=== PATIENT | female | born 1935 | race Caucasian/White ===

== ENCOUNTER 2019-06-25 14:45 | Inpatient (IN) | payer MEDICARE ==
[~2019-06-25] VITALS: Ht 157.5 cm; Wt 63.6 kg
[~2019-06-25 14:45] MED LIST: ACHD5005 PO; ALBU17AE3 IH; D50KC PO; DCS100C PO; DESO15OI TP; FERR-57 PO; FLD5TCR PO; FNT100TD TD; FURO40TA4 PO; HYDR25TA4 PO; LVT.1T PO; MPR22TI TP; MULT1TAB53 PO; NFGUAR168P PO; PEG250PW PO; POTA10TA21 PO; PRAV40TA PO; PRAV80TA2 PO; RANI150C11 PO; SENN-75 PO
--- NOTE | 2019-06-25 14:56 | ED Abdominal Pain ---
General Stated Complaint: N/V/D Source of Information: Patient Exam Limitations: No Limitations History of Present Illness Date Seen by Provider: Jun 25, 2019 Time Seen by Provider: 14:54 Initial Comments To ER per EMS from home with reports of a 5 day history of nausea vomiting diarrhea abdominal pain and pain all over. Primary care Dr. Thomas. She has a prescription for hydrocodone 10/325 one tablet every 4 hours and a fentanyl patch 75 g per hour. She states that she's been too nauseated to take the hydrocodone. Timing/Duration: 1-2 Days Severity/Quality: Moderate Location: Periumbilical Radiation: No Radiation Activities at Onset: None Associated Symptoms: Nausea/Vomiting Allergies and Home Medications Allergies Coded Allergies: Penicillins (Unverified Allergy, Unknown, 06/25/19) Sulfa (Sulfonamide Antibiotics) (Verified Allergy, Unknown, 06/25/19) gabapentin (Verified Allergy, Unknown, 06/25/19) hydrochlorothiazide (Verified Allergy, Unknown, 06/25/19) lisinopril (Verified Allergy, Unknown, 06/25/19) losartan (Verified Allergy, Unknown, 06/25/19) pregabalin (Verified Allergy, Unknown, 06/25/19) sulfamethoxazole (Verified Allergy, Unknown, 06/25/19) trimethoprim (Verified Allergy, Unknown, 06/25/19) Home Medications Docusate Sodium 100 Mg Cap, 100 MG PO BID, (Reported) Ergocalciferol 50,000 Unit Capsule, 50,000 UNIT PO WEDNESDAYS, (Reported) Felodipine 5 Mg Tab, 10 MG PO DAILY, (Reported) TAKES 2 (5MG) TABS DAILY Fentanyl 1 Ea Patch, 100 MCG TD Q72H PRN for PAIN, (Reported) PRN PAIN Hydrochlorothiazide 25 Mg Tablet, 25 MG PO DAILY, (Reported) Hydrocodone Bit/Acetaminophen 1 Each Tablet, 1 TAB PO Q6 PRN, (Reported) PRN PAIN Levothyroxine Sodium 100 Mcg Tablet, 100 MCG PO DAILY, (Reported) Potassium Chloride 10 Meq Tab.prt.sr, 10 MEQ PO DAILY, (Reported) Pravastatin Sodium 40 Mg Tablet, 40 MG PO HS, (Reported) Ranitidine Hcl 150 Mg Capsule, 150 MG PO BID, (Reported) Sennosides/Docusate Sodium 1 Each Tablet, 2 EACH PO BID, (Reported) Patient Home Medication List Home Medication List Reviewed: Yes Review of Systems Review of Systems Constitutional: see HPI EENTM: No Symptoms Reported Respiratory: No Symptoms Reported Cardiovascular: No Symptoms Reported Gastrointestinal: See HPI, Abdominal Pain, Diarrhea, Nausea Genitourinary: No Symptoms Reported Musculoskeletal: no symptoms reported Skin: no symptoms reported Psychiatric/Neurological: No Symptoms Reported Past Sxqiqfx-Lkadbg-Uptjxu Hx Immunizations Up To Date Date of Pneumonia Vaccine: Sep 17, 2011 Date of Influenza Vaccine: Aug 17, 2013 Past Medical History Reproductive Disorders: Yes Physical Exam Vital Signs Vital Signs - First Documented 06/25/19 14:45 Temp 36.4 Pulse 100 Resp 19 B/P (MAP) 163/99 (120) Pulse Ox 95 O2 Delivery Room Air Capillary Refill : Height/Weight/BMI Height: 5'3.00" Weight: 153lbs. oz. 69.763178ye; BMI Method: General Appearance: WD/WN, no apparent distress Respiratory: no respiratory distress Cardiovascular: regular rate, rhythm, no murmur Gastrointestinal: soft, abnormal bowel sounds, tenderness (hypoactive) Extremities: normal range of motion, non-tender Neurologic/Psychiatric: alert, normal mood/affect, oriented x 3 Skin: normal color, warm/dry Focused Exam Lactate Level 06/25/19 12:25: Lactic Acid Level 1.34 Lactic Acid Level Laboratory Tests Test 06/25/19 12:25 Lactic Acid Level 1.34 MMOL/L (0.50-2.00) Progress/Results/Core Measures Results/Orders Lab Results Laboratory Tests Test 06/25/19 12:25 06/25/19 15:25 06/25/19 16:50 Range/Units White Blood Count 6.8 4.3-11.0 10^3/uL Red Blood Count 4.78 4.35-5.85 10^6/uL Hemoglobin 14.4 11.5-16.0 G/DL Hematocrit 40 35-52 % Mean Corpuscular Volume 84 80-99 FL Mean Corpuscular Hemoglobin 30 25-34 PG Mean Corpuscular Hemoglobin Concent 36 32-36 G/DL Red Cell Distribution Width 13.7 10.0-14.5 % Platelet Count 396 130-400 10^3/uL Mean Platelet Volume 9.3 7.4-10.4 FL Neutrophils (%) (Auto) 66 42-75 % Lymphocytes (%) (Auto) 17 12-44 % Monocytes (%) (Auto) 16 H 0-12 % Eosinophils (%) (Auto) 0 0-10 % Basophils (%) (Auto) 0 0-10 % Neutrophils # (Auto) 4.5 1.8-7.8 X 10^3 Lymphocytes # (Auto) 1.2 1.0-4.0 X 10^3 Monocytes # (Auto) 1.1 H 0.0-1.0 X 10^3 Eosinophils # (Auto) 0.0 0.0-0.3 10^3/uL Basophils # (Auto) 0.0 0.0-0.1 10^3/uL Lactic Acid Level 1.34 0.50-2.00 MMOL/L Sodium Level 133 L 135-145 MMOL/L Potassium Level 3.1 L 3.6-5.0 MMOL/L Chloride Level 89 L 98-107 MMOL/L Carbon Dioxide Level 27 21-32 MMOL/L Anion Gap 17 H 5-14 MMOL/L Blood Urea Nitrogen 37 H 7-18 MG/DL Creatinine 0.80 0.60-1.30 MG/DL Estimat Glomerular Filtration Rate > 60 BUN/Creatinine Ratio 46 Glucose Level 121 H 70-105 MG/DL Calcium Level 10.4 H 8.5-10.1 MG/DL Corrected Calcium 10.3 H 8.5-10.1 MG/DL Total Bilirubin 0.6 0.1-1.0 MG/DL Aspartate Amino Transf (AST/SGOT) 13 5-34 U/L Alanine Aminotransferase (ALT/SGPT) 9 0-55 U/L Alkaline Phosphatase 63 40-136 U/L Troponin I 0.028 <0.028 NG/ML Total Protein 7.2 6.4-8.2 GM/DL Albumin 4.1 3.2-4.5 GM/DL Lipase 15 8-78 U/L Urine Color MILY H Urine Clarity CLEAR Urine pH 5 5-9 Urine Specific [place] 1.015 L 1.016-1.022 Urine Protein 2+ H NEGATIVE Urine Glucose (UA) NEGATIVE NEGATIVE Urine Ketones 3+ H NEGATIVE Urine Nitrite NEGATIVE NEGATIVE Urine Bilirubin 1+ H NEGATIVE Urine Urobilinogen NORMAL NORMAL MG/DL Urine Leukocyte Esterase 1+ H NEGATIVE Urine RBC (Auto) NEGATIVE NEGATIVE Urine RBC NONE /HPF Urine WBC NONE /HPF Urine Squamous Epithelial Cells NONE /HPF Urine Crystals NONE /LPF Urine Bacteria TRACE /HPF Urine Casts NONE /LPF Urine White Blood Cell Casts RARE H /LPF Urine Mucus SMALL H /LPF Urine Culture Indicated NO Urine Opiates Screen POSITIVE H NEGATIVE Urine Oxycodone Screen POSITIVE H NEGATIVE Urine Methadone Screen NEGATIVE NEGATIVE Urine Propoxyphene Screen NEGATIVE NEGATIVE Urine Barbiturates Screen NEGATIVE NEGATIVE Ur Tricyclic Antidepressants Screen NEGATIVE NEGATIVE Urine Phencyclidine Screen NEGATIVE NEGATIVE Urine Amphetamines Screen NEGATIVE NEGATIVE Urine Methamphetamines Screen NEGATIVE NEGATIVE Urine Benzodiazepines Screen POSITIVE H NEGATIVE Urine Cocaine Screen NEGATIVE NEGATIVE Urine Cannabinoids Screen NEGATIVE NEGATIVE My Orders Orders - PRITI ALVAREZ APRN Cbc With Automated Diff (06/25/19 14:52) Comprehensive Metabolic Panel (06/25/19 14:52) Lipase (06/25/19 14:52) Ua Culture If Indicated (06/25/19 14:52) Ed Iv/Invasive Line Start (06/25/19 14:52) Lactic Acid Analyzer (06/25/19 14:52) Ondansetron Injection (Zofran Injectio (06/25/19 15:00) Troponin I (06/25/19 14:52) Ketorolac Injection (Toradol Injection) (06/25/19 15:30) Drug Screen Stat (Urine) (06/25/19 15:41) Ct Abdomen/Pelvis W (06/25/19 16:06) Iohexol Injection (Omnipaque 350 Mg/Ml 1 (06/25/19 16:15) Received Contrast (Hold Metformin- Contr (06/25/19 16:15) Ns (Ivpb) (Sodium Chloride 0.9% Ivpb Bag (06/25/19 16:15) Fentanyl Injection (Sublimaze Injection (06/25/19 16:30) Promethazine Injection (Phenergan Injec (06/25/19 16:45) Chest 1 View, Ap/Pa Only (06/25/19 16:42) Ng Tube Insert & Assessment (06/25/19 16:42) Benzocaine Extension Tube (Hurricaine Ex (06/25/19 16:51) Magnesium (06/25/19 17:19) Metoprolol Tartrate Injection (Lopressor (06/25/19 17:30) Benzocaine Extension Tube (Hurricaine Ex (06/25/19 17:30) Medications Given in ED Current Medications Medications Dose Ordered Sig/Bob Route Start Time Stop Time Status Last Admin Dose Admin Benzocaine 1 ea ONCE ONCE XX 06/25/19 17:30 06/25/19 17:31 06/25/19 17:00 1 EA Fentanyl Citrate 50 mcg ONCE ONCE IVP 06/25/19 16:30 06/25/19 16:31 DC 06/25/19 16:48 50 MCG Iohexol 80 ml ONCE ONCE IV 06/25/19 16:15 06/25/19 16:16 DC 06/25/19 16:44 80 ML Ketorolac Tromethamine 15 mg ONCE ONCE IVP 06/25/19 15:30 06/25/19 15:31 DC 06/25/19 15:38 15 MG Ondansetron HCl 8 mg ONCE ONCE IVP 06/25/19 15:00 06/25/19 15:01 DC 06/25/19 15:11 8 MG Promethazine HCl 6.25 mg ONCE ONCE IVP 06/25/19 16:45 06/25/19 16:46 DC 06/25/19 16:48 6.25 MG Sodium Chloride 100 ml ONCE ONCE IV 06/25/19 16:15 06/25/19 16:16 DC 06/25/19 16:44 80 ML Vital Signs/I&O 06/25/19 14:45 Temp 36.4 Pulse 100 Resp 19 B/P (MAP) 163/99 (120) Pulse Ox 95 O2 Delivery Room Air Departure Communication (Admissions) Time/Spoke to Admitting Phy: 17:29 Discussed the case with Dr. Rocha, will admit, nasogastric tube 16 Slovenian inserted left nostril by me, 1 L greenish material aspirated. Time/Spoke to Consulting Phy: 17:24 Discussed CODE STATUS with the patient. Daughter is at the bedside, daughter states she should be a full code, patient wants to be DO NOT RESUSCITATE but after conversing with the daughter, convinced to remain full CODE STATUS. Patient also states "at 86 years old on not having an operation". Advised her she can discuss the plan with Dr. Marcum . Dr. Marcum will be over to evaluate the patient, I discussed the case with him as well. NAME: LILIYA TATUM MED REC#: [id number] PT STATUS: REG ER : 1935 PHYSICIAN: PRITI ALVAREZ APRN ADMIT DATE: 06/25/19/ER Draft Date of Exam:06/25/19 CT ABDOMEN/PELVIS W PROCEDURE: CT abdomen and pelvis with contrast. TECHNIQUE: Multiple contiguous axial images were obtained through the abdomen and pelvis after administration of intravenous contrast. Auto Exposure Controls were utilized during the CT exam to meet ALARA standards for radiation dose reduction. INDICATION: Pain and nausea. FINDINGS: There are features of a high-grade small bowel obstruction, believed to be secondary to an incarcerated right inguinal hernia medial to the neurovascular bundle. The loop proximal to the hernia sac is dilated and distally is decompressed with an abrupt zone of transition. The proximal small bowel behind the herniation is dilated with differential air-fluid levels. Small bowel diameter is upwards of 4.1 cm. No free air or findings of viscus perforation. Dilatation extends to the level of the stomach which is moderately distended with fluid. The liver, spleen, adrenals, pancreas, and gallbladder are all unremarkable. The kidneys are unobstructed. There is air at the rectal vault. 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 The proximal colon is decompressed. There are aortoiliac atherosclerotic vascular calcifications without arterial obstruction. IMPRESSION: High-grade small bowel obstruction owing to likely incarcerated right inguinal hernia. No evidence for perforation. No abscess or fluid collection. Dictated on workstation # [id number] Dict: 06/25/19 1646 Trans: 06/25/19 [id number] [id number] Interpreted by: MARGIE ARGUELLO Electronically signed by: Impression Primary Impression: Incarcerated right inguinal hernia Additional Impression: Small bowel obstruction Disposition: ADMITTED INPATIENT Condition: Stable Admissions Decision to Admit Reason: Admit from ER (General) Decision to Admit/Date: Jun 25, 2019 Time/Decision to Admit Time: 17:05 PRITI ALVAREZ APRN Jun 25, 2019 14:56
[2019-06-25] MEDS ORDERED: ONDANSETRON 4 MG/2 ML (SDV) Z0FRAN IVP ONE (15:00)
[2019-06-25] MEDS ORDERED: KETOROLAC 30 MG/ML VIAL IVP ONE (15:30)
[2019-06-25 15:35] LABS: BASOPHILS % (AUTO) 0 % (0-10); EOSINOPHILS % (AUTO) 0 % (0-10); HEMATOCRIT 40 % (35-52); HEMOGLOBIN 14.4 G/DL (11.5-16.0); LYMPHOCYTES # (AUTO) 1.2 X 10^3 (1.0-4.0); LYMPHOCYTES % (AUTO) 17 % (12-44); MEAN CORPUSCULAR HEMOGLOBIN 30 PG (25-34); MEAN CORPUSCULAR HGB CONC 36 G/DL (32-36); MEAN CORPUSCULAR VOLUME 84 FL (80-99); MEAN PLATELET VOLUME 9.3 FL (7.4-10.4); MONOCYTES # (AUTO) 1.1 X 10^3 (0.0-1.0); MONOCYTES % (AUTO) 16 % (0-12); NEUTROPHILS # (AUTO) 4.5 X 10^3 (1.8-7.8); NEUTROPHILS % (AUTO) 66 % (42-75); PLATELET COUNT 396 10^3/uL (130-400); RED CELL DISTRIBUTION WIDTH 13.7 % (10.0-14.5); WHITE BLOOD COUNT 6.8 10^3/uL (4.3-11.0)
[2019-06-25 16:04] LABS: ALANINE AMINOTRANSFERASE 9 U/L (0-55); ALBUMIN 4.1 GM/DL (3.2-4.5); ALKALINE PHOSPHATASE 63 U/L (40-136); BILIRUBIN,TOTAL 0.6 MG/DL (0.1-1.0); BUN/CREATININE RATIO 46; CALCIUM 10.4 MG/DL (8.5-10.1); CARBON DIOXIDE 27 MMOL/L (21-32); CHLORIDE 89 MMOL/L (98-107); GFR ESTIMATED > 60; GLUCOSE 121 MG/DL (70-105); LIPASE 15 U/L (8-78); POTASSIUM 3.1 MMOL/L (3.6-5.0); SODIUM 133 MMOL/L (135-145); TOTAL PROTEIN 7.2 GM/DL (6.4-8.2)
[2019-06-25] MEDS ORDERED: IOHEXOL 350 MG/ML 100 ML (OMNIPAQUE 350) VIAL IV ONE (16:15)
[2019-06-25] MEDS ORDERED: HOLD METFORMIN - RECEIVED CONTRAST 20 ML VIAL IV SCH (16:15)
[2019-06-25] MEDS ORDERED: NS 100 ML (IVPB) BAG IV ONE (16:15)
[2019-06-25] MEDS ORDERED: fentaNYL INJECTION 100 MCG/2 ML AMP IVP ONE ×2 (16:30→20:45)
[2019-06-25] MEDS ORDERED: PROMETHAZINE INJ 25 MG/ML (PHENERGAN) AMP IVP ONE (16:45)
[2019-06-25] MEDS ORDERED: HURRICAINE EXT TUBE (BENZOCAINE) ONE (16:51)
--- NOTE | 2019-06-25 16:58 | Diagnostic Imaging Report ---
PROCEDURE: CT abdomen and pelvis with contrast. TECHNIQUE: Multiple contiguous axial images were obtained through the abdomen and pelvis after administration of intravenous contrast. Auto Exposure Controls were utilized during the CT exam to meet ALARA standards for radiation dose reduction. INDICATION: Pain and nausea. FINDINGS: There are features of a high-grade small bowel obstruction, believed to be secondary to an incarcerated right inguinal hernia medial to the neurovascular bundle. The loop proximal to the hernia sac is dilated and distally is decompressed with an abrupt zone of transition. The proximal small bowel behind the herniation is dilated with differential air-fluid levels. Small bowel diameter is upwards of 4.1 cm. No free air or findings of viscus perforation. Dilatation extends to the level of the stomach which is moderately distended with fluid. The liver, spleen, adrenals, pancreas, and gallbladder are all unremarkable. The kidneys are unobstructed. There is air at the rectal vault. 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 The proximal colon is decompressed. There are aortoiliac atherosclerotic vascular calcifications without arterial obstruction. IMPRESSION: High-grade small bowel obstruction owing to likely incarcerated right inguinal hernia. No evidence for perforation. No abscess or fluid collection. Dictated by: Dictated on workstation # [id number]
[2019-06-25 17:06] LABS: BILIRUBIN,URINE 1+ (NEGATIVE); CLARITY,URINE CLEAR; COLOR,URINE AMBER; GLUCOSE, URINE (UA) NEGATIVE (NEGATIVE); KETONES,URINE 3+ (NEGATIVE); LEUKOCYTE ESTERASE ,URINE 1+ (NEGATIVE); NITRITE,URINE NEGATIVE (NEGATIVE); PH,URINE 5 (5-9); PROTEIN,URINE 2+ (NEGATIVE); UROBILINOGEN,URINE NORMAL (NORMAL)
--- NOTE | 2019-06-25 17:10 | NUR ---
NS bolus initiated by cc ems detective captain, complete. 1L intake.
--- NOTE | 2019-06-25 17:18 | NUR ---
1L dark, green output noted from 16fr NG tube.
[2019-06-25 17:22] LABS: BACTERIA,URINE TRACE /HPF
[2019-06-25 17:23] LABS: WHITE BLOOD CELL CASTS, URINE RARE /LPF
[2019-06-25 17:26] LABS: AMPHETAMINE SCREEN, URINE NEGATIVE (NEGATIVE); BARBITURATE SCREEN URINE NEGATIVE (NEGATIVE); BENZODIAZEPINES SCREEN URINE POSITIVE (NEGATIVE); CANNABINOID SCREEN, URINE NEGATIVE (NEGATIVE); COCAINE SCREEN URINE NEGATIVE (NEGATIVE); METHADONE STAT NEGATIVE (NEGATIVE); METHAMPHETAMINE SCREEN URINE S NEGATIVE (NEGATIVE); OPIATE SCREEN URINE POSITIVE (NEGATIVE); OXYCODONE STAT POSITIVE (NEGATIVE); PROPOXYPHENE STAT NEGATIVE (NEGATIVE); TRICYCLIC ANTIDEPRESSANTS SCRE NEGATIVE (NEGATIVE)
[2019-06-25] MEDS ORDERED: meTOprolol 5 MG/5 ML (LOPRESSOR) VIAL IV ONE (17:30)
[2019-06-25] MEDS ORDERED: HURRICAINE EXT TUBE (BENZOCAINE) XX ONE (17:30)
--- NOTE | 2019-06-25 17:41 | NUR ---
Pt report called to ALEXY Gardner for admission to room #407.
--- NOTE | 2019-06-25 18:08 | Consultation - Surgery ---
History of Present Illness History of Present Illness Patient Consulted On(hiral/time) 06/25/19 18:03 Time Seen by Provider: 17:31 History of Present Illness Surgery asked to consult regarding High grade Small bowel Resection. HPI per ED: To ER per EMS from home with reports of a 5 day history of nausea vomiting diarrhea abdominal pain and pain all over. Primary care Dr. Thomas. She has a prescription for hydrocodone 10/325 one tablet every 4 hours and a fentanyl patch 75 g per hour. She states that she's been too nauseated to take the hydrocodone. Timing/Duration: 1-2 Days Severity/Quality: Moderate Location: Periumbilical Radiation: No Radiation Activities at Onset: None Associated Symptoms: Nausea/Vomiting When I spoke to pt she states the bad pain has been past few days, but daughter reminds her she has been having pain in that area for past few months. Daughter thinks it may have even been years; because she remembers her mom complaining about a bulge in the right inguinal area that was more painful when "it got bumped". She has not been able to eat since yesterday. She rates the pain as 8 out of 10, not moving is the only thing that makes it better. Allergies and Home Medications Allergies Coded Allergies: Penicillins (Unverified Allergy, Unknown, 06/25/19) Sulfa (Sulfonamide Antibiotics) (Verified Allergy, Unknown, 06/25/19) gabapentin (Verified Allergy, Unknown, 06/25/19) hydrochlorothiazide (Verified Allergy, Unknown, 06/25/19) lisinopril (Verified Allergy, Unknown, 06/25/19) losartan (Verified Allergy, Unknown, 06/25/19) pregabalin (Verified Allergy, Unknown, 06/25/19) sulfamethoxazole (Verified Allergy, Unknown, 06/25/19) trimethoprim (Verified Allergy, Unknown, 06/25/19) Home Medications Docusate Sodium 100 Mg Cap, 100 MG PO BID, (Reported) Ergocalciferol 50,000 Unit Capsule, 50,000 UNIT PO WEDNESDAYS, (Reported) Felodipine 5 Mg Tab, 10 MG PO DAILY, (Reported) TAKES 2 (5MG) TABS DAILY Fentanyl 1 Ea Patch, 100 MCG TD Q72H PRN for PAIN, (Reported) PRN PAIN Hydrochlorothiazide 25 Mg Tablet, 25 MG PO DAILY, (Reported) Hydrocodone Bit/Acetaminophen 1 Each Tablet, 1 TAB PO Q6 PRN, (Reported) PRN PAIN Levothyroxine Sodium 100 Mcg Tablet, 100 MCG PO DAILY, (Reported) Potassium Chloride 10 Meq Tab.prt.sr, 10 MEQ PO DAILY, (Reported) Pravastatin Sodium 40 Mg Tablet, 40 MG PO HS, (Reported) Ranitidine Hcl 150 Mg Capsule, 150 MG PO BID, (Reported) Sennosides/Docusate Sodium 1 Each Tablet, 2 EACH PO BID, (Reported) Patient Home Medication List Home Medication List Reviewed: Yes Past Ixwlsyi-Ctafkz-Wljxro Hx Patient Social History Alcohol Use: Denies Use Recreational Drug Use: No Smoking Status: Current Everyday Smoker Type Used: Cigarettes 2nd Hand Smoke Exposure: Yes Recent Foreign Travel: No Contact w/Someone Who Travel: No Recent Infectious Disease Expo: No Recent Hopitalizations: Yes (ENCEPHALITIS 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 SCARLET FEVER X 2) Immunizations Up To Date Date of Pneumonia Vaccine: Sep 17, 2011 Date of Influenza Vaccine: Aug 17, 2013 Surgeries History of Surgeries: Yes (THYROIDECTOMY X2, HYSTERECTOMY, SKIN GRAFT ON RIGHT LEG) Respiratory History of Respiratory Disorde: Yes Cardiovascular History of Cardiac Disorders: Yes Neurological History of Neurological Disord: No Reproductive System Hx Reproductive Disorders: Yes Sexually Transmitted Disease: No Gastrointestinal History of Gastrointestinal Di: No Musculoskeletal History of Musculoskeletal Dis: Yes Endocrine History of Endocrine Disorders: Yes Psychosocial History of Psychiatric Problem: No Blood Transfusions History of Blood Disorders: No Family Medical History Significant Family History: Diabetes (both parents), Hypertension (both parents) Review of Systems-General Constitutional: chills; No diaphoresis; malaise, weakness EENTM: blurred vision, vision loss; No mouth swelling, No epistaxis, No throat swelling Respiratory: No cough, No dyspnea on exertion, No hemoptysis, No short of breath Cardiovascular: No chest pain, No edema Gastrointestinal: abdominal pain; No hematemesis, No jaundice; nausea, vomiting Genitourinary: No dysuria, No frequency, No hematuria Musculoskeletal: back pain, joint pain, joint swelling, muscle pain, muscle stiffness Skin: No change in color, No change in hair/nails Psychiatric/Neurological: Anxiety, Depressed; Denies Seizure, Denies Tremors Other pt denies any hx of abnormal bleeding or bruising Physical Exam-General Problems Physical Exam Vital Signs Vital Signs - First Documented 06/25/19 14:45 Temp 36.4 Pulse 100 Resp 19 B/P (MAP) 163/99 (120) Pulse Ox 95 O2 Delivery Room Air Capillary Refill : Less Than 3 Seconds General Appearance: moderate distress, thin Eyes: Bilateral Eye PERRL, Bilateral Eye EOMI HEENT: pharynx normal; No scleral icterus (R), No scleral icterus (L); other (pt's left eye deviates laterally and she has mild exopthalmos) Neck: non-tender, supple, normal inspection Respiratory: chest non-tender, lungs clear, normal breath sounds, no respiratory distress, no accessory muscle use Cardiovascular: regular rate, rhythm, no murmur Gastrointestinal: no organomegaly, no pulsatile mass, distended, tenderness (diffusely), hernia (incarcerated right inguinal hernia) Back: no CVA tenderness, no vertebral tenderness Extremities: normal range of motion, no pedal edema, no calf tenderness Neurologic/Psychiatric: hand driller II-XII nml as tested, no motor/sensory deficits, alert, normal mood/affect, oriented x 3 Skin: normal color, warm/dry Lymphatic: no adenopathy (neck, axilla or groin) Data Review Labs Laboratory Tests 06/25/19 12:25: White Blood Count 6.8, Red Blood Count 4.78, Hemoglobin 14.4, Hematocrit 40, Mean Corpuscular Volume 84, Mean Corpuscular Hemoglobin 30, Mean Corpuscular Hemoglobin Concent 36, Red Cell Distribution Width 13.7, Platelet Count 396, Mean Platelet Volume 9.3, Neutrophils (%) (Auto) 66, Lymphocytes (%) (Auto) 17, Monocytes (%) (Auto) 16H, Eosinophils (%) (Auto) 0, Basophils (%) (Auto) 0, Neutrophils # (Auto) 4.5, Lymphocytes # (Auto) 1.2, Monocytes # (Auto) 1.1H, Eosinophils # (Auto) 0.0, Basophils # (Auto) 0.0, Lactic Acid Level 1.34 06/25/19 15:25: Sodium Level 133L, Potassium Level 3.1L, Chloride Level 89L, Carbon Dioxide Level 27, Anion Gap 17H, Blood Urea Nitrogen 37H, Creatinine 0.80, Estimat Glomerular Filtration Rate > 60, BUN/Creatinine Ratio 46, Glucose Level 121H, Calcium Level 10.4H, Corrected Calcium 10.3H, Magnesium Level 2.1, Total Bilirubin 0.6, Aspartate Amino Transf (AST/SGOT) 13, Alanine Aminotransferase (ALT/SGPT) 9, Alkaline Phosphatase 63, Troponin I 0.028, Total Protein 7.2, Albumin 4.1, Lipase 15 06/25/19 16:50: Urine Color AMBERH, Urine Clarity CLEAR, Urine pH 5, Urine Specific [place] 1.015L, Urine Protein 2+H, Urine Glucose (UA) NEGATIVE, Urine Ketones 3+H, Urine Nitrite NEGATIVE, Urine Bilirubin 1+H, Urine Urobilinogen NORMAL, Urine Leukocyte Esterase 1+H, Urine RBC (Auto) NEGATIVE, Urine RBC NONE, Urine WBC NONE, Urine Squamous Epithelial Cells NONE, Urine Crystals NONE, Urine Bacteria TRACE, Urine Casts NONE, Urine White Blood Cell Casts RAREH, Urine Mucus SMALLH, Urine Culture Indicated NO, Urine Opiates Screen POSITIVEH, Urine Oxycodone Screen POSITIVEH, Urine Methadone Screen NEGATIVE, Urine Propoxyphene Screen NEGATIVE, Urine Barbiturates Screen NEGATIVE, Ur Tricyclic Antidepressants Screen NEGATIVE, Urine Phencyclidine Screen NEGATIVE, Urine Amphetamines Screen NEGATIVE, Urine Methamphetamines Screen NEGATIVE, Urine Benzodiazepines Screen POSITIVEH, Urine Cocaine Screen NEGATIVE, Urine Cannabinoids Screen NEGATIVE Assessment/Plan Assessment/Plan Assessment/Plan High Grade Partial Small Bowel Resection Incarcerated Right Inguinal Hernia Chronic Pain Pt had CT which was read by the radiologist as high grade obstruction due to RIH, I reviewed it myself and agree; I am also concerned about the possibility of strangulation and bowel. The pt is very concerned about being to old to have surgery. Plan is NPO, NGT, IV fluids, IV ABX 1/2 hour prior to surgery, pain control, anti-emetics and will get consent. Consent for Diagnostic Laparoscopy, possible small bowel resection, right inguinal herniar haylee with possible mesh. Discussed surgery and all risks and complications, not limited to pain, bleeding, infection, scar, damage to bowel, possible mesh removal and need for further procedure. All questions answered to pt and her daughter's satisfacti on. MIKE OSUNA DO Jun 25, 2019 18:08
--- NOTE | 2019-06-25 18:20 | NUR ---
Pt report given to ALEXY Chou (surgical adm).
[2019-06-25 18:23] LABS: PROTHROMBIN TIME PATIENT 13.5 SEC (12.2-14.7)
[2019-06-25] MEDS ORDERED: BUP/EPI 0.5% 1:200,000 (SENSORCAINE) 30 ML VIAL ONE (18:23)
[2019-06-25] MEDS ORDERED: proPOfol 200 MG/20 ML (DIPRIVAN) VIAL IV ONE ×2 (18:41→20:16)
[2019-06-25] MEDS ORDERED: LIDOCAINE PF 2% 5 ML (XYLOCAINE) VIAL ONE ×2 (18:41→20:16)
[2019-06-25] MEDS ORDERED: SUCCINYLCHOLINE INJ 100 MG/5 ML SYR ONE (18:41)
[2019-06-25] MEDS ORDERED: ROCURONIUM 10 MG/ML 5 ML SYRINGE IV ONE (18:41)
[2019-06-25] MEDS ORDERED: fentaNYL INJECTION 100 MCG/2 ML AMP ONE ×2 (18:42→20:02)
[2019-06-25] MEDS ORDERED: ceFAZolin INJECTION 0 MG ONE (18:50)
[2019-06-25] MEDS ORDERED: SEVOFLURANE (ULTANE) 15 ML INHAL SOLN ONE ×4 (19:00→20:16)
[2019-06-25] MEDS ORDERED: CLINDAMYCIN 900 MG/50 ML IVPB 50 ML IV NR (19:00)
[2019-06-25] MEDS: LACTATED RINGERS 1,000 ML IV PRN ×2 (19:01→20:30)
[2019-06-25] MEDS ORDERED: morphine INJ 10 MG/ML 1ML (SYR OR VIAL) ONE (20:01)
[2019-06-25] MEDS ORDERED: HYDROmorphone 2 MG/ML VIAL (DILAUDID) ONE (20:01)
[2019-06-25] MEDS ORDERED: ONDANSETRON 4 MG/2 ML (SDV) Z0FRAN ONE ×2 (20:02→20:26)
[2019-06-25] MEDS ORDERED: GLYCOPYRROLATE 0.2 MG/ML (ROBINUL) 2 ML VIAL ONE (20:26)
[2019-06-25] MEDS ORDERED: DEXAMETHASONE 10 MG/ML (DECADRON) 1 ML VIAL ONE (20:26)
[2019-06-25] MEDS ORDERED: NEOSTIGMINE 3 MG/3 ML VIAL ONE (20:26)
--- NOTE | 2019-06-25 20:35 | Progress Note-Post Operative ---
Post-Operative Progess Note Surgeon (s)/Stockroom Inventory Clerk (s) Surgeon MIKE OSUNA DO Stockroom Inventory Clerk: Sae Pre-Operative Diagnosis High Grade PSBO, Incarcerated Inguinal hernia Post-Operative Diagnosis Incarcerated Femoral Hernia with bowel Incarcerated inguinal hernia - with fat PSBO Procedure & Operative Findings Date of Procedure 06/25/19 Procedure Performed/Findings Lap Femoral and Inguinal Hernia repair with mesh placement Anesthesia Type GET Estimated Blood Loss Estimated blood loss (mL): scant Specimens/Packing Specimens Removed none MIKE OSUNA DO Jun 25, 2019 20:35
[2019-06-25 20:40] VITALS: BP 172/80
[2019-06-25] MEDS ORDERED: MEPERIDINE (DEMEROL) INJ 50 MG/ML IVP ONE (20:45)
[2019-06-25] MEDS ORDERED: HYDROmorphone 2 MG/ML VIAL (DILAUDID) IV ONE (20:45)
[2019-06-25] MEDS ORDERED: morphine INJ 10 MG/ML 1ML (SYR OR VIAL) IVP ONE (20:45)
[2019-06-25] MEDS ORDERED: ONDANSETRON 4 MG/2 ML (SDV) Z0FRAN IVP PRN (20:45)
[2019-06-25 20:50] VITALS: BP 184/90
[2019-06-25 21:00] VITALS: BP 178/82
[2019-06-25 21:10] VITALS: BP 178/89
--- NOTE | 2019-06-25 21:20 | NUR ---
PT ARRIVED ON UNIT VIA CART, ACCOMPANIED BY STAFF. BEDSIDE REPORT RECEIVED FROM ALEXY NIETO. PT REPORTS NO PAIN AT THIS TIME. LAP SITES ASSESSED, DRY WITH DERMABOND. PT INTRODUCED TO SURROUNDINGS, CALL LIGHT WITHIN REACH.
[2019-06-25 21:25] VITALS: BP 180/89
[2019-06-25 21:40] VITALS: BP 183/75
[2019-06-25] MEDS ORDERED: NS W/KCL 40 MEQ/L 0 ML IV ONE (22:03)
[2019-06-25] MEDS: LACTATED RINGERS 1,000 ML IV SCH (22:09)
[2019-06-25] MEDS ORDERED: fentaNYL INJECTION 100 MCG/2 ML AMP IV PRN (22:15)
[2019-06-25] MEDS ORDERED: ONDANSETRON 4 MG/2 ML (SDV) Z0FRAN IV PRN (22:15)
[2019-06-25] MEDS ORDERED: PROMETHAZINE INJ 25 MG/ML (PHENERGAN) AMP IVP PRN (22:15)
[2019-06-25] MEDS: ACETAMINOPHEN 500 MG TAB (TYLENOL) PO SCH (23:29)
--- NOTE | 2019-06-26 00:22 | NUR ---
PT B/P 175/73 AT THIS TIME, DR SUH NOTIFIED, DR GOODRICH WILL ADDRESS HIGH B/P IN AM. NO NEW ORDERS AT THIS TIME
[2019-06-26 00:55] VITALS: BP 175/74
[2019-06-26] MEDS: morphine INJ 4 MG/ML 1 ML (VIAL/SYRINGE) IVP PRN ×4 (04:21→15:08)
[2019-06-26 04:30] VITALS: BP 134/75
[2019-06-26] MEDS: LACTATED RINGERS 1,000 ML IV SCH ×3 (04:33→21:18)
[2019-06-26] MEDS: ACETAMINOPHEN 500 MG TAB (TYLENOL) PO SCH ×3 (04:50→20:52)
[2019-06-26 05:22] LABS: BASOPHILS % (AUTO) 0 % (0-10); EOSINOPHILS % (AUTO) 0 % (0-10); HEMATOCRIT 34 % (35-52); HEMOGLOBIN 11.8 G/DL (11.5-16.0); LYMPHOCYTES # (AUTO) 0.8 X 10^3 (1.0-4.0); LYMPHOCYTES % (AUTO) 11 % (12-44); MEAN CORPUSCULAR HEMOGLOBIN 29 PG (25-34); MEAN CORPUSCULAR HGB CONC 35 G/DL (32-36); MEAN CORPUSCULAR VOLUME 84 FL (80-99); MEAN PLATELET VOLUME 9.6 FL (7.4-10.4); MONOCYTES # (AUTO) 0.9 X 10^3 (0.0-1.0); MONOCYTES % (AUTO) 13 % (0-12); NEUTROPHILS # (AUTO) 5.7 X 10^3 (1.8-7.8); NEUTROPHILS % (AUTO) 77 % (42-75); PLATELET COUNT 342 10^3/uL (130-400); RED CELL DISTRIBUTION WIDTH 13.7 % (10.0-14.5); WHITE BLOOD COUNT 7.4 10^3/uL (4.3-11.0)
[2019-06-26 05:54] LABS: ALANINE AMINOTRANSFERASE 6 U/L (0-55); ALBUMIN 3.3 GM/DL (3.2-4.5); ALKALINE PHOSPHATASE 45 U/L (40-136); BILIRUBIN,TOTAL 0.4 MG/DL (0.1-1.0); BUN/CREATININE RATIO 40; CARBON DIOXIDE 27 MMOL/L (21-32); CHLORIDE 93 MMOL/L (98-107); GFR ESTIMATED > 60; GLUCOSE 114 MG/DL (70-105); SODIUM 134 MMOL/L (135-145); TOTAL PROTEIN 5.8 GM/DL (6.4-8.2)
--- NOTE | 2019-06-26 06:14 | OPERATIVE REPORT ---
DATE OF SERVICE: PREOPERATIVE DIAGNOSES: 1. High-grade partial small-bowel obstruction. 2. Incarcerated inguinal hernia. POSTOPERATIVE DIAGNOSES: 1. Incarcerated femoral hernia with bowel in it. 2. Incarcerated indirect hernia with fat in it. 3. Partial small-bowel obstruction. SURGEON: Brock Marcum DO METABOLIC SPECIALIST: Ko Quevedo DO ANESTHESIA: General endotracheal tube. SPECIMENS: None. BLOOD LOSS: Scant. FLUIDS: Per anesthesia. POSTOPERATIVE CONDITION: Stable. INDICATION FOR PROCEDURE: The patient is an 84-year-old female who came in with abdominal pain, distention. CAT scan showed a high-grade partial small-bowel obstruction due to what was thought to be an inguinal hernia with bowel stuck in it. FINDINGS: The patient actually had an incarcerated femoral hernia with a bowel stuck. She also had what looked like indirect inguinal hernia with fat in it and the partial small-bowel obstruction. PROCEDURE NOTE: After informed consent was obtained, the patient was brought to the operating room, placed on the operating table in supine position. She was sterilely prepped and draped in normal fashion. Then, infiltrated the skin below the umbilicus with local and then made a small incision with #11 blade, carried down through the skin into subcutaneous tissue, then deepened down through the subcutaneous tissue with Bovie electrocautery down to the fascia and then incised the fascia with Bovie electrocautery. Bluntly entered the abdomen, swept a finger around, placed 0 Vicryl [id number] suture, then placed a limited trocar port under direct visualization. Created pneumoperitoneum. Looked in there, looked at the small intestine, looked like it was still viable, could see the intestine stuck into the hernia. Elected to place another 5 mm port left lower quadrant with local lidocaine, #11 blade for stab incision and VersaStep system, all done under direct visualization. I then used a grasper to help pull this intestine out. When we pulled it out, looked like it was slightly dusky, so elected to leave this there and what we found was it had been incarcerated in the femoral hernia, but this is where the bowel was and then also noted an indirect and a direct inguinal hernia that were incarcerated with some fat. At this point, I thought that the best way to repair this mesh would be to do a transabdominal preperitoneal repair, so started coming through the preperitoneal reflection with scissors and Bovie electrocautery, creating an opening starting at about the median arcuate ligament and going out and then going down along this towards the pubic tubercle staying just on the preperitoneal side, carefully pushing the fat backwards. Went out laterally and able to get down all the way down to the peritoneal reflection. This freed up very nicely and then started coming across medially, got to about the middle where the indirect inguinal and direct inguinal hernia were seen and elected to then go to the other side of this and go down along the preperitoneal freeing this up down to the pubic tubercle, could see the pubic tubercle and then came across and then started pulling the preperitoneal tissue out of the femoral hernia. A large amount of preperitoneal tissue, able to finally get this out and then took out some fat as well and then started freeing up and getting the preperitoneal tissue in the hernia out of the indirect and direct inguinal spaces. Got this pretty much freed up and then elected to come across the round ligament with the scissors using cautery. I then was able to get all this preperitoneal reflection down and out of the way. At this point, I elected to place a Bard 3D mesh, used the large 4 inch x 6 inch mesh, placed this into the abdomen and then put this in our space created. It actually laid in there very nicely. I used a secure strap to tack right at the pubic tubercle medially and then up along the abdominal wall, placed 2 more tacks. I then took the preperitoneal reflection and tacked that back in place up along the abdominal wall and then once right at the pubic tubercle and once medially trying to stay away from triangle of doom and triangle of pain. This laid in there very nicely and the peritoneal reflection went up very nicely, took a picture of this and then looked at the small intestine. It looked like it was starting to pink up, this intestine looked viable. Therefore, elected not to do any type of bowel resection and at this point, I suctioned out minimal fluid in the pelvis. She had been in Trendelenburg to do this. She was then placed supine. Took all ports out under direct visualization, allowed pneumoperitoneum to escape and then closed the infraumbilical incision, closing the fascia with 0 Vicryl [id number]-[id number] suture. Copiously irrigated incisions and closed the skin with 4-0 undyed Monocryl running in the simple subcuticular stitches, 3 at the infraumbilical incision and then there were two 5 mm ports, I forgot to state we added one more port in between the left lower quadrant one and the umbilicus. These were both closed with 4-0 undyed Monocryl single interrupted subcuticular stitch. Area was cleaned and dried. Dermabond placed as well as Band-Aids. The patient tolerated the procedure well. Sponge, instrument and needle count correct at the end of the case. Dr. Quevedo assisted in this case helping to make incisions, close incisions, identify anatomy and helping to hold the anatomy out of the way. Job ID: [id number] DocumentID: [id number] Dictated Date: 06/25/2019 20:46:27 Assistant Professor Of Radiology Date: 06/26/2019 05:06:20 Dictated By: DO WINSTON LYLES
--- NOTE | 2019-06-26 06:25 | NUR ---
pt potassium 3.0, dr. hale contacted, fluids switched to NS w/40meq potassium
[2019-06-26] MEDS: NS W/KCL 40 MEQ/L 1,000 ML IV SCH ×4 (06:39→23:11)
--- NOTE | 2019-06-26 08:08 | History & Physical-Hospitalist ---
History of Present Illness Source: patient Exam Limitations: no limitations Date Seen 06/26/19 Time Seen by a Provider: 09:00 Attending Physician Saida Rocha David F MD Referring Physician Date of Admission Jun 25, 2019 at 20:28 Home Medications & Allergies Home Medications Reviewed patient Home Medication Reconciliation performed by pharmacy medication reconciliations wind tunnel technician and/or nursing. Patients Allergies have been reviewed. Allergies Allergies Coded Allergies Penicillins (Unverified Allergy, Unknown, 06/25/19) Sulfa (Sulfonamide Antibiotics) (Verified Allergy, Unknown, 06/25/19) gabapentin (Verified Allergy, Unknown, 06/25/19) hydrochlorothiazide (Verified Allergy, Unknown, 06/25/19) lisinopril (Verified Allergy, Unknown, 06/25/19) losartan (Verified Allergy, Unknown, 06/25/19) pregabalin (Verified Allergy, Unknown, 06/25/19) sulfamethoxazole (Verified Allergy, Unknown, 06/25/19) trimethoprim (Verified Allergy, Unknown, 06/25/19) Past Tbbjpsd-Xievua-Ynscue Hx Patient Social History Alcohol Use: Denies Use Recreational Drug Use: No Smoking Status: Current Everyday Smoker Type Used: Cigarettes 2nd Hand Smoke Exposure: Yes Recent Foreign Travel: No Contact w/other who traveled: No Recent Hopitalizations: Yes (ENCEPHALITIS 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 SCARLET FEVER X 2) Recent Infectious Disease Expo: No Immunizations Up To Date Date of Pneumonia Vaccine: May 18, 2017 Date of Influenza Vaccine: Aug 17, 2013 Past Medical History Currently Using CPAP: No Currently Using BIPAP: No Reproductive: Yes Sexually Transmitted Disease: No History of Blood Disorders: No Family History Diabetes (both parents), Hypertension (both parents) Physical Exam Physical Exam Vital Signs Vital Signs - First Documented 06/25/19 14:45 Temp 36.4 Pulse 100 Resp 19 B/P (MAP) 163/99 (120) Pulse Ox 95 O2 Delivery Room Air Capillary Refill : Less Than 3 Seconds Height, Weight, BMI Height: 5'3.00" Weight: 153lbs. oz. 69.266388gc; 25.00 BMI Method: Results Results/Procedures Labs Laboratory Tests 06/25/19 12:25 06/25/19 15:25 06/26/19 04:40 Patient resulted labs reviewed. Clinical Quality Measures DVT/VTE Risk/Contraindication: Risk Factor Score Per Nursin RFS Level Per Nursing on Admit: 3=High SAIDA ROCHA DO Jun 26, 2019 08:08
[2019-06-26] MEDS ORDERED: FLU QUADRIvalent (5+ YOA) 2019-2020 (AFLURIA) 0.5 ML IM ONE (08:15)
[2019-06-26 08:17] VITALS: BP 136/62
--- NOTE | 2019-06-26 08:45 | Progress Note - Surgery ---
LUCA MAZA,MED STUDENT 06/26/19 0845: Subjective Date Seen by a Provider: Jun 26, 2019 Time Seen by a Provider: 07:45 Subjective/Events-last exam Patient reports feeling much better today. Her abdominal pain has improved. She denies passing flatus or having a bowel movement since surgery. Tolerating clear liquids. Using incentive spirometer as instructed. Focused Exam Lactate Level 06/25/19 12:25: Lactic Acid Level 1.34 Objective Exam Vital Signs Date Time Temp Pulse Resp B/P (MAP) Pulse Ox O2 Delivery O2 Flow Rate FiO2 06/26/19 08:17 36.4 74 18 136/62 (86) 95 Room Air 06/26/19 07:49 72 06/26/19 04:30 37.2 76 18 134/75 (94) Room Air 06/26/19 04:08 Room Air 06/26/19 00:55 36.8 82 18 175/74 (107) 98 Room Air 06/25/19 23:14 85 06/25/19 21:40 36.6 72 20 183/75 (111) 95 Room Air 06/25/19 21:25 Room Air 06/25/19 21:25 36.7 20 180/89 (119) 96 Room Air 06/25/19 21:20 Room Air 06/25/19 21:15 Room Air 06/25/19 21:10 20 178/89 (118) 96 Room Air 06/25/19 21:00 OxyMask 4 06/25/19 21:00 20 178/82 (114) 98 OxyMask 5 06/25/19 20:50 20 184/90 (121) 98 OxyMask 8 06/25/19 20:45 OxyMask 8 06/25/19 20:40 OxyMask 8 06/25/19 20:40 36.7 20 172/80 (110) 100 OxyMask 8 06/25/19 18:50 36.4 86 17 167/86 (120) 96 Room Air 06/25/19 14:45 36.4 100 19 163/99 (120) 95 Room Air I & O 06/26/19 07:00 Intake Total 3590 ml Output Total 1475 ml Balance 2115 ml Capillary Refill : Less Than 3 Seconds General Appearance: No Apparent Distress HEENT: Moist Mucous Membranes Respiratory: Lungs Clear, No Accessory Muscle Use, No Respiratory Distress Cardiovascular: Regular Rate, Rhythm, No Edema Gastrointestinal: soft, no organomegaly, tenderness (mild incisional tenderness), other (abdominal incisions appear clean and dry without evidence of infection; NG tube in place) Neurologic/Psychiatric: Normal Mood/Affect Skin: Normal Color, Warm/Dry Lymphatic: No Adenopathy Results Lab Laboratory Tests 06/25/19 12:25: White Blood Count 6.8, Red Blood Count 4.78, Hemoglobin 14.4, Hematocrit 40, Mean Corpuscular Volume 84, Mean Corpuscular Hemoglobin 30, Mean Corpuscular Hemoglobin Concent 36, Red Cell Distribution Width 13.7, Platelet Count 396, Mean Platelet Volume 9.3, Neutrophils (%) (Auto) 66, Lymphocytes (%) (Auto) 17, Monocytes (%) (Auto) 16H, Eosinophils (%) (Auto) 0, Basophils (%) (Auto) 0, Neutrophils # (Auto) 4.5, Lymphocytes # (Auto) 1.2, Monocytes # (Auto) 1.1H, Eosinophils # (Auto) 0.0, Basophils # (Auto) 0.0, Lactic Acid Level 1.34 06/25/19 14:55: Prothrombin Time 13.5, INR Comment 1.0 06/25/19 15:25: Sodium Level 133L, Potassium Level 3.1L, Chloride Level 89L, Carbon Dioxide Level 27, Anion Gap 17H, Blood Urea Nitrogen 37H, Creatinine 0.80, Estimat Glomerular Filtration Rate > 60, BUN/Creatinine Ratio 46, Glucose Level 121H, Calcium Level 10.4H, Corrected Calcium 10.3H, Magnesium Level 2.1, Total Bilirubin 0.6, Aspartate Amino Transf (AST/SGOT) 13, Alanine Aminotransferase (ALT/SGPT) 9, Alkaline Phosphatase 63, Troponin I 0.028, Total Protein 7.2, Albumin 4.1, Lipase 15 06/25/19 16:50: Urine Color AMBERH, Urine Clarity CLEAR, Urine pH 5, Urine Specific [place] 1.015L, Urine Protein 2+H, Urine Glucose (UA) NEGATIVE, Urine Ketones 3+H, Urine Nitrite NEGATIVE, Urine Bilirubin 1+H, Urine Urobilinogen NORMAL, Urine Leukocyte Esterase 1+H, Urine RBC (Auto) NEGATIVE, Urine RBC NONE, Urine WBC N ONE, Urine Squamous Epithelial Cells NONE, Urine Crystals NONE, Urine Bacteria TRACE, Urine Casts NONE, Urine White Blood Cell Casts RAREH, Urine Mucus SMALLH, Urine Culture Indicated NO, Urine Opiates Screen POSITIVEH, Urine Oxycodone Screen POSITIVEH, Urine Methadone Screen NEGATIVE, Urine Propoxyphene Screen NEGATIVE, Urine Barbiturates Screen NEGATIVE, Ur Tricyclic Antidepressants Screen NEGATIVE, Urine Phencyclidine Screen NEGATIVE, Urine Amphetamines Screen NEGATIVE, Urine Methamphetamines Screen NEGATIVE, Urine Benzodiazepines Screen POSITIVEH, Urine Cocaine Screen NEGATIVE, Urine Cannabinoids Screen NEGATIVE 06/26/19 04:40: White Blood Count 7.4, Red Blood Count 4.01L, Hemoglobin 11.8, Hematocrit 34L, Mean Corpuscular Volume 84, Mean Corpuscular Hemoglobin 29, Mean Corpuscular Hemoglobin Concent 35, Red Cell Distribution Width 13.7, Platelet Count 342, Mean Platelet Volume 9.6, Neutrophils (%) (Auto) 77H, Lymphocytes (%) (Auto) 11L , Monocytes (%) (Auto) 13H, Eosinophils (%) (Auto) 0, Basophils (%) (Auto) 0, Neutrophils # (Auto) 5.7, Lymphocytes # (Auto) 0.8L, Monocytes # (Auto) 0.9, Eosinophils # (Auto) 0.0, Basophils # (Auto) 0.0, Sodium Level 134L, Potassium Level 3.0L, Chloride Level 93L, Carbon Dioxide Level 27, Anion Gap 14, Blood Urea Nitrogen 28H, Creatinine 0.70, Estimat Glomerular Filtration Rate > 60, BUN/Creatinine Ratio 40, Glucose Level 114H, Calcium Level 9.0, Corrected Calcium 9.6, Total Bilirubin 0.4, Aspartate Amino Transf (AST/SGOT) 14, Alanine Aminotransferase (ALT/SGPT) 6, Alkaline Phosphatase 45, Total Protein 5.8L, Albumin 3.3 Assessment/Plan Assessment/Plan Assessment/Plan Incarcerated Right Femoral Hernia s/p laparoscopic GUANAKO hernia repair Chronic Pain s/p laparoscopic GUANAKO hernia repair Pain control and IV fluids Continue clear liquid diet, awaiting bowel function Incentive spirometry Clinical Quality Measures DVT/VTE Risk/Contraindication: Risk Factor Score Per Nursin RFS Level Per Nursing on Admit: 3=High BROCK MARCUM DO 06/26/19 0921: Subjective Time Seen by a Provider: 09:00 Subjective/Events-last exam Pt's main complaint is of sore throat from NGT. Assessment/Plan Assessment/Plan Assessment/Plan Will d/c NGT, encourage ambulation and increase diet slowly. Supervisory-Addendum Brief Verification & Attestation Participated in pt care: history, MDM, physical Personally performed: exam, history, MDM Care discussed with: Medical Student Procedures: n/a Verification and Attestation of Medical Student E/M Service A medical student performed and documented this service in my presence. I reviewed and verified all information documented by the medical student and made modifications to such information, when appropriate. I personally performed the physical exam and medical decision making. Brock Marcum, Jun 26, 2019,09:21 LUCA MAZA,MED STUDENT Jun 26, 2019 08:45 BROCK MARCUM DO Jun 26, 2019 09:21
[2019-06-26] MEDS: PANTOPRAZOLE 40 MG (PROTONIX) VIAL IV SCH (09:45)
[2019-06-26] MEDS ORDERED: BETA15CR37 TP (09:53)
[2019-06-26] MEDS ORDERED: FELO10TA3 PO (09:53)
[2019-06-26] MEDS ORDERED: PROP10DR4 OU (09:53)
[2019-06-26] MEDS ORDERED: DOCU-143 PO (09:53)
[2019-06-26] MEDS ORDERED: LEVO100T7 PO (09:53)
[2019-06-26] MEDS ORDERED: SENN-109 PO (09:53)
[2019-06-26] MEDS ORDERED: BRIM5DRO OU (09:53)
[2019-06-26] MEDS ORDERED: BIMA2.5D4 OU (09:53)
[2019-06-26] MEDS ORDERED: BISA5TAB8 PO (09:53)
[2019-06-26] MEDS ORDERED: PRAV40TA2 PO (09:53)
[2019-06-26] MEDS ORDERED: POLY17PO6 PO (09:53)
[2019-06-26] MEDS ORDERED: POTA10TA36 PO (09:53)
[2019-06-26] MEDS ORDERED: DOCU250C11 PO (09:53)
[2019-06-26] MEDS ORDERED: ONDA4TAB11 PO (09:53)
[2019-06-26] MEDS ORDERED: DICL100G18 TP (09:53)
[2019-06-26] MEDS ORDERED: HYDR-3820 PO (09:53)
[2019-06-26] MEDS ORDERED: FENT1PAT10 PO (09:53)
[2019-06-26] MEDS ORDERED: HYDR25TA4 PO (09:53)
[2019-06-26] MEDS ORDERED: CHOL500049 PO (09:53)
[2019-06-26] MEDS ORDERED: RANI150T11 PO (09:53)
[2019-06-26] MEDS ORDERED: CLOR7.5T3 PO (09:56)
[2019-06-26] MEDS ORDERED: SENN-141 PO (10:10)
[2019-06-26] MEDS ORDERED: ERGO50006 PO (10:18)
--- NOTE | 2019-06-26 10:19 | NUR ---
PATIENT HAD A LIST OF HER MEDICATIONS WRITTEN DOWN IN A BOOK IN HER ROOM. WE WENT OVER THAT LIST WELL THE EXT MED HX. IN ADDITION TO WHAT IS SHOWN ON THE EXT MED HX [facility] FILLED: 06-20-19 BETAMETHASONE CREAM BID 05-01-19 VITAMIN D2 [id number] WEEKLY #12 (TAKES ON FRIDAYS) 02-11-19 CLORAZEPATE 7.5MG DAILY #90 SHE ALSO STATES SHE HAS VOLTAREN GEL ON HAND IF NEEDED. OTC MEDS: 2 SENNA DAILY 2 SENNA S DAILY COLACE 250MG DAILY BISACODYL DAILY MIRALAX PRN SYSTANE PRN (SHE STATES SHE SPREADS THE STOOL SOFTENERS AND LAXATIVES OUT THROUGHOUT THE DAY, SOME IN AM AND SOME AT HS)
[2019-06-26] MEDS ORDERED: LORA10TA7 PO (11:18)
[2019-06-26 11:47] VITALS: BP 148/77
--- NOTE | 2019-06-26 12:57 | History & Physical-Hospitalist ---
CARINA DUEÑAS MED STUDENT 06/26/19 1257: History of Present Illness HPI/Chief Complaint CC: Abdominal pain, N/V, Diarrhea Ms. Reich went to the ER after 5 days of nausea and vomiting, diarrhea, and abdominal pain on 06/25. She was found to have incarcerated right femoral hernia, and underwent laparoscopic GUANAKO hernia repair. When I saw her today she was laying in bed, appeared to be doing well. She complains of abdominal pain, and has not had a BM or flatus since surgery. On questioning of her symptoms, she reports having some congestion due to allergies, and felt some chest pain on her left side that was located on the lateral side of her rib cage, along the lower border of her breast, and up her left parasternal region. She at first attributed the pain to anxiety she has about her condition and procedure, as she has not been taking her anxiety medication, but then later attributed it to having gas/reflux. The pain did not radiate, was not associated with exertion, and she was not experiencing diaphoresis or nausea. She has been sitting up and walking. Her questions were when she would be able to drink milk, and when she could be discharged. Prior to her surgery her labs showed low RBC count and hematocrit, high Neutrophil percentage and monocyte percentage, low lymphocyte percentage, low Na, K, Cl, and total protein, high glucose, high BUN. Her urinalysis showed bruce color, 2+ protein, 3+ ketones, 1+ bilirubin, 1+ leukocyte esterase, rare WBC casts, and small urine mucus. No labs drawn since her surgery. Source: patient, family Date Seen 06/26/19 Time Seen by a Provider: 01:00 Attending Physician Saida Suh David F MD Referring Physician Date of Admission Jun 25, 2019 at 20:28 Home Medications & Allergies Home Medications Reviewed patient Home Medication Reconciliation performed by pharmacy medication reconciliations central sterile supply technician and/or nursing. Patients Allergies have been reviewed. Allergies Allergies Coded Allergies Penicillins (Unverified Allergy, Unknown, 06/25/19) Sulfa (Sulfonamide Antibiotics) (Verified Allergy, Unknown, 06/25/19) gabapentin (Verified Allergy, Unknown, 06/25/19) hydrochlorothiazide (Verified Allergy, Unknown, 06/25/19) lisinopril (Verified Allergy, Unknown, 06/25/19) losartan (Verified Allergy, Unknown, 06/25/19) pregabalin (Verified Allergy, Unknown, 06/25/19) sulfamethoxazole (Verified Allergy, Unknown, 06/25/19) trimethoprim (Verified Allergy, Unknown, 06/25/19) Past Mbspicf-Lvyyhg-Smsfue Hx Patient Social History Marrital Status: Number of Children: 5 Number of living children: 3 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 SCARLET FEVER X 2) Recent Infectious Disease Expo: No Immunizations Up To Date Date of Pneumonia Vaccine: May 18, 2017 Date of Influenza Vaccine: Aug 17, 2013 Past Medical History Surgeries: Hysterectomy, Oophorectomy, Thyroidectomy Currently Using CPAP: No Currently Using BIPAP: No Cardiac: Hypertension Reproductive: Yes Sexually Transmitted Disease: No Hysterectomy Gastrointestinal: Gastroesophageal Reflux Hearing Impairment: Hard of Hearing Cancer: Skin (R leg) What Type of Treatment Did You: Surgical Intervention (skin grafts) Psychosocial: Anxiety History of Blood Disorders: No Family History CAD Over 55 Years Old (?father, siblings), Diabetes (both parents), Hypertension (both parents), Stroke (mother, siblings) Review of Systems Constitutional: No chills, No fever EENTM: other (denied nose congestion but felt 'stuffed up' from allergies); No ear pain, No blurred vision, No double vision, No nose congestion Respiratory: No cough; orthopnea; No short of breath Cardiovascular: chest pain (nonradiating, left sided, on lateral rib cage, along lower border of breast to left parasternal region); No edema, No palpitations Gastrointestinal: abdominal pain (RLQ), constipation; No nausea, No vomiting Genitourinary: No dysuria, No frequency Musculoskeletal: no symptoms reported Psychiatric/Neurological: Anxiety; Denies Numbness, Denies Paresthesia, Denies Tingling Physical Exam Physical Exam Vital Signs Vital Signs - First Documented 06/25/19 14:45 Temp 36.4 Pulse 100 Resp 19 B/P (MAP) 163/99 (120) Pulse Ox 95 O2 Delivery Room Air Capillary Refill : Less Than 3 Seconds Height, Weight, BMI Height: 5'3.00" Weight: 153lbs. oz. 69.089251lj; 25.00 BMI Method: General Appearance: No Apparent Distress, WD/WN, Anxious Neck: Normal Inspection, Non Tender, Supple Respiratory: Lungs Clear, No Accessory Muscle Use, No Respiratory Distress, Wheezing Cardiovascular: Regular Rate, Rhythm, No Edema, No Gallop, No Murmur, Normal Peripheral Pulses Gastrointestinal: Normal Bowel Sounds Extremity: Non Tender, Calf Tenderness (on left side at site where she had a prior skin infection) Neurologic/Psychiatric: Alert, Oriented x3 Skin: Normal Color, Warm/Dry Lymphatic: No Adenopathy Results Results/Procedures Labs Laboratory Tests 06/25/19 12:25 06/25/19 15:25 06/26/19 04:40 Patient resulted labs reviewed. Assessment/Plan Admission Diagnosis Assessment: 1. Incarcerated Right Femoral Hernia s/p laparoscopic GUANAKO hernia repair 2. Abnormal urinalysis 3. Anxiety 4. HTN 5. GERD 6. Chronic pain Plan 1. continue postoperative protocol (clear liquid diet, incentive spirometry) 2. monitor bowel function 3. consider urinalysis 4. continue medication for chronic conditions when GI function returns Clinical Quality Measures DVT/VTE Risk/Contraindication: Risk Factor Score Per Nursin RFS Level Per Nursing on Admit: 3=High SAIDA SUH DO 06/26/19 2018: History of Present Illness HPI/Chief Complaint Chief complaint: Abdominal pain. HPI: This is an 84yoWF clinic Pt of Dr. Thomas who presented to the ER with abdominal pain found to have an incarcerated femoral hernia, was brought to surgery with s/p repair by Dr. Marcum, and is currently doing well and remains stable through the night. Her BP remains elevated but Pt denies any significant problems. She is very hard of hearing, making it difficult to communicate. 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) Review of Systems Constitutional: see HPI Physical Exam Physical Exam General Appearance: No Apparent Distress, WD/WN, Anxious, Chronically ill, Thin Respiratory: Lungs Clear Cardiovascular: Regular Rate, Rhythm Neurologic/Psychiatric: Alert, Oriented x3, No Motor/Sensory Deficits, Normal Mood/Affect Assessment/Plan Admission Diagnosis Assessment: Incarcerated femoral hernia with SBO s/p surgical resolution Ileus post op HTN OOC Admission Status: Inpatient Order (span 2 midnights) Reason for Inpatient Admission: SBO Diagnosis/Problems Diagnosis/Problems (1) Incarcerated right inguinal hernia Status: Acute (2) Small bowel obstruction Status: Acute (3) Hypertension Status: Chronic Qualifiers: Hypertension type: essential hypertension Qualified Codes: I10 - Essential (primary) hypertension (4) Presbycusis of both ears Status: Chronic Supervisory-Addendum Brief Verification & Attestation Participated in pt care: history, MDM, physical Personally performed: exam, history, MDM, supervision of care Care discussed with: Medical Student Procedures: n/a Results interpretation: Verified all documentation Verification and Attestation of Medical Student E/M Service A medical student performed and documented this service in my presence. I reviewed and verified all information documented by the medical student and made modifications to such information, when appropriate. I personally performed the physical exam and medical decision making. Saida Suh, Jun 26, 2019,20:18 CARINA DUEÑAS MED STUDENT Jun 26, 2019 12:57 SAIDA SUH DO Jun 26, 2019 20:18
--- NOTE | 2019-06-26 14:04 | Anesthesia-General Post-Op ---
General Patient Condition Mental Status/LOC: Same as Preop Cardiovascular: Satisfactory Nausea/Vomiting: Absent Respiratory: Satisfactory Pain: Controlled Complications: Absent Post Op Complications Complications None Follow Up Care/Instructions Patient Instructions None needed. Anesthesia/Patient Condition Patient Condition Patient is doing well, no complaints, stable vital signs, no apparent adverse anesthesia problems. AILEEN BUCKLEY DO Jun 26, 2019 14:04
--- NOTE | 2019-06-26 15:10 | Physical Therapy Evaluation ---
PT Evaluation-General Medical Diagnosis Admission Date Jun 25, 2019 at 20:28 Medical Diagnosis: hernia/SBO Onset Date: Jun 25, 2019 Therapy Diagnosis Therapy Diagnosis: debility/weakness/FWW evaluation Height/Weight Height (Feet): 5 Height (Inches): 3.00 Weight (Pounds): 153 Precautions Precautions/Isolations: Fall Prevention, Standard Precautions Referral Physician: Trixie Reason for Referral: Evaluation/Treatment Medical History Pertinent Medical History: HTN, Smoking Current History EMS with 5 day history of N/V/D and abdominal pain Reviewed History: Yes Social History Home: Single Level Current Living Status: Alone (24/ caregivers) Prior Prior Level of Function SCALE: Activities may be completed with or without assistive devices. 5-Ccmqeusebp-gusdbbz completes the activity by him/herself with no assistance from a helper. 5-Set-up or Clean-up Assistance-helper sets up or cleans up; patient completes activity. [place] assists only prior to or following the activity. 4-Supervision or Touching Assistance-helper provides verbal cues and/or touching /steadying and/or contact guard assistance as patient completes activity. Assistance may be provided throughout the activity or intermittently. 3-Partial/Moderate Assistance-helper does LESS THAN HALF the effort. [place] lifts, holds or supports trunk or limbs, but provides less than half the effort. 2-Substantial/Maximal Assistance-helper does MORE THAN HALF the effort. [place] lifts or holds trunk or limbs and provides more than half the effort. 8-Thkpesmos-vuyhxw does ALL the effort. Patient does none of the effort to complete the activity. Or, the assistance of 2 or more helpers is required for the patient to complete the activity. If activity was not attempted, code reason: 7-Patient Refused. 9-Not Applicable-not attempted and the patient did not perform the activity before the current illness, exacerbation or injury. 10-Not Attempted due to Environmental Limitations-(lack of equipment, weather restraints, etc.). 88-Not Attempted due to Medical Conditions or Safety Concerns. Bed Mobility: 5 Transfers (B,C,W/C): 5 Gait: 5 Indoor Mobility (Ambulation): Independent Prior Devices Use: Walker PT Evaluation-Current Subjective Patient agrees to PT. Caregivers/family present. 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) Bowel Incontinence: No Bladder Incontinence: No Posture trunk flexed posture Neuromuscular (Tone, Coordination, Reflexes) grossly intact Sensory Vision: Wears Glasses Hearing: Impaired Sensation Right Lower Extremit: Intact Sensation Left Lower Extremity: Intact Transfers Roll Left to Right (QC): 5 Sit to Lying (QC): 5 Lying to Sitting/Side of Bed(Q: 5 Sit to Stand (QC): 5 Chair/Cpb-gv-Mzvan Xfer(QC): 5 Gait Does the Patient Walk?: Yes Mode of Locomotion: Walk Anticipated Mode of Locomotion: Walk Distance (FIM): 3=150 ft Walk 10 feet (QC): 5 Walk 50 ft with 2 Turns(QC): 5 Walk 150 ft (QC): 5 Gait Assistive Device: Walker Platform (bilateral UE platform FWW to improve posture and decrease forearm wound progression) Comments/Gait Description improved gait sequence and posture with bilateral platform FWW Balance Sitting Static: Normal Sitting Dynamic: Normal Standing Static: Normal Standing Dynamic: Normal Assessment/Needs 84 y.o. female, will benefit from PT to address assistive device needs to improve LOF and promote safe return to home with improved posture and forearm wound prevention. Rehab Potential: Fair PT Load Mixer Goals Snf Goals PT Load Mixer Goals Time Frame: Jul 04, 2019 Sit to Lying (QC): 6 Lying-Sitting on Side/Bed(QC): 6 Sit to Stand (QC): 6 Roll Left to Right (QC): 6 Chair/Xtx-hg-Ncmby Xfer(QC): 6 Does the Patient Walk: Yes Distance: 150' Walk 10 feet (QC): 6 Walk 10ft-Uneven Surface(QC): 6 Walk 50ft with 2 Turns (QC): 6 Walk 150 ft (QC): 6 Gait Assistive Device: Walker Platform (bilateral UE) PT Plan Problem List Problem List: Activity Tolerance, Gait Treatment/Plan Treatment Plan: Continue Plan of Care Treatment Plan: Bed Mobility, Education, Functional Activity [place], Functional Strength, Gait, Safety, Therapeutic Exercise, Transfers Treatment Duration: Jul 04, 2019 Frequency: 6 times per week Estimated Hrs Per Day: .25 hour per day Patient and/or Family Agrees t: Yes Safety Risks/Education Patient Education: Gait Training Teaching Recipient: Primary Caregiver, Family Response to Teaching: Verbalize Understanding, Return Demonstration Discharge Recommendations Therapy Discharge Recommendati: Scheduled Assistance Equpiment Recommendations-D/C: Front Wheeled Walker (with bilateral platform to improve posture and wound prevention of forearms) Time/GCodes Time In: 1430 Time Out: 1500 Total Billed Treatment Time: 30 Total [facility] EL VEL[facility]ZQUEZ PT Jun 26, 2019 15:10
--- NOTE | 2019-06-26 15:23 | NUR ---
RD ASSESSMENT PMHx: No pertinent PMH. PT INTERACTION: Pt was awake and pleasant during nutrition assessment. Pt states current appetite as "very hungry" and asked when she "could get real food." Pt states no current issues with n/v at this time. Note pt was admitted for frequent episodes of nausea and vomiting. Pt states having chronic constipation. Pt states following regular diet at home and having no issues with chewing/swallowing at this time. Pt states 5-10# wt loss x6mon. Note unable to determine recent wt hx, per chart review. Pt and family were concerned about appropriate foods upon discharge. ABNORMAL NUTRITION-RELATED LAB VALUES: Hct 24 (L); Na 134 (L); K 2.0 (L); Cl 93 (L); Pro 5.8 (L); BUN 28 (H): glu 114 (H) Est. kcal needs: 4967-8308 kcal (25-30 kcal/kg) Est. Pro needs: 76-89 g Pro (1.2-1.4 g Pro/kg) PES STATEMENT: Inadequate protein intake related to increased protein needs as evidenced by wound (surgical) and recent surgery (bowel resection) INTERVENTION: Advance to current diet order to regular diet, when medically able. Add Ensure Enlive (destiny) to meals BID. Provides 250 kcal and 20 g Pro per serving, for perceived benefits of wound healing. Educated pt on fiber intake and fiber's role in the digestive process. Discussed water intake and hydration status as well. MONITOR/EVALUATE: PO Intake; Plan of Care; Hydration Status; Weight Status; Lab Values; Stool Output Wendi Whitley, MS, RD, LD [phone]
--- NOTE | 2019-06-26 15:53 | NUR ---
Pastoral care visit.
[2019-06-26 17:51] VITALS: BP_SYST 156; BP_SYST 174; BP_DIAS 75; BP_DIAS 85
--- NOTE | 2019-06-26 19:00 | NUR ---
DR. OSUNA NOTIFIED OF PT. NOT VOIDING AFTER [place] CATH REMOVED AT 1000. BLADDER SCAN SHOWED 98 CC. NEW ORDER NOTED. LR HUNG AT 500 CC PER HR. PER LEFT AC. IV SITE CLEAR.
[2019-06-26] MEDS: fentaNYL PATCH 75 MCG (DURAGESIC) TOP SCH (19:21)
[2019-06-26] MEDS: FENTANYL PATCH REMOVAL TP SCH (19:21)
[2019-06-26] MEDS ORDERED: ZINC OXIDE 16% OINT (BUTT PASTE) 113 GM TUBE TOP PRN (19:30)
[2019-06-26] MEDS ORDERED: LACTATED RINGERS 500 ML IV SCH (19:30)
--- NOTE | 2019-06-26 19:33 | NUR ---
WASTED FENTANYL PATCH WITH KELBY TRACEY.
[2019-06-26 19:35] VITALS: BP 149/73
[2019-06-26] MEDS ORDERED: ARTIFICAL TEARS 0.4 ML UNIT DOSE (REFRESH PLUS) OU PRN (20:30)
[2019-06-26] MEDS: SENNA W/DOCUSATE (SENOKOT S) TABLET PO SCH (20:52)
[2019-06-26] MEDS: ENOXAPARIN 40 MG/0.4 ML (LOVENOX) SYR SC SCH (20:59)
[2019-06-26] MEDS ORDERED: BRIMONIDINE 0.2% (ALPHAGAN) OPHTH SOLN 5 ML BTL OU SCH (21:00)
[2019-06-26] MEDS: TIMOLOL MALEATE 0.5% 5 ML (TIMOPTIC) BTL OU SCH (21:07)
[2019-06-26] MEDS: LATANOPROST 0.005% (XALATAN) OPHTH SOLN 2.5 ML OU SCH (21:07)
[2019-06-26] MEDS: BETAMETHASONE DIPRO (AUGMENTED) 0.05% CREAM 15 GM TP SCH (21:20)
[2019-06-27 00:22] VITALS: BP 150/54
[2019-06-27 03:20] VITALS: BP 164/89
--- NOTE | 2019-06-27 04:05 | NUR ---
06/26 2300- BLADDER SCAN SHOWED 105ML URINE IN BLADDER. STARTED PREVIOUS FLUIDS ON PT (NS WITH 40MEQ K AT 125ML/HR). 06/27 300-BLADDER SCAN SHOWED 138ML URINE IN BLADDER. PT HAS NOT URINATED THROUGH THE NIGHT. VITAL SIGNS STABLE. BOWEL SOUNDS ACTIVE IN ALL 4 QUADRANTS. SMALL AMT DISTENTION IN RIGHT LOWER QUADRANT, BUT THIS FINDING HAS BEEN THE SAME SINCE I CAME ON SHIFT. 06/27 405- DR. OSUNA NOTIFIED OF ABOVE FINDINGS. HE ASKED IF AM LABS WERE ORDERED AND I CONFIRMED. TELEPHONE ORDERS RECEIVED TO INFORM HIM OF BUN/CREAT LEVELS ONCE RECEIVED BUT NO OTHER ORDERS AT THIS TIME. WILL CARRY OUT ORDERS AND CONTINUE TO MONITOR PT.
[2019-06-27] MEDS: LACTATED RINGERS 1,000 ML IV SCH ×2 (05:19→13:14)
[2019-06-27] MEDS: LEVOTHYROXINE 100 MCG (LEVOTHROID) TAB PO SCH (05:33)
[2019-06-27] MEDS: ACETAMINOPHEN 500 MG TAB (TYLENOL) PO SCH ×3 (05:35→21:33)
[2019-06-27] MEDS: NS W/KCL 40 MEQ/L 1,000 ML IV SCH ×2 (05:35→14:08)
[2019-06-27 05:49] LABS: BASOPHILS % (AUTO) 0 % (0-10); EOSINOPHILS # (AUTO) 0.1 10^3/uL (0.0-0.3); EOSINOPHILS % (AUTO) 1 % (0-10); HEMATOCRIT 33 % (35-52); HEMOGLOBIN 11.4 G/DL (11.5-16.0); LYMPHOCYTES # (AUTO) 2.2 X 10^3 (1.0-4.0); LYMPHOCYTES % (AUTO) 29 % (12-44); MEAN CORPUSCULAR HEMOGLOBIN 30 PG (25-34); MEAN CORPUSCULAR HGB CONC 35 G/DL (32-36); MEAN CORPUSCULAR VOLUME 85 FL (80-99); MEAN PLATELET VOLUME 9.2 FL (7.4-10.4); MONOCYTES # (AUTO) 1.3 X 10^3 (0.0-1.0); MONOCYTES % (AUTO) 17 % (0-12); NEUTROPHILS # (AUTO) 4.2 X 10^3 (1.8-7.8); NEUTROPHILS % (AUTO) 54 % (42-75); PLATELET COUNT 301 10^3/uL (130-400); RED CELL DISTRIBUTION WIDTH 13.5 % (10.0-14.5); WHITE BLOOD COUNT 7.9 10^3/uL (4.3-11.0)
[2019-06-27 06:11] LABS: ALANINE AMINOTRANSFERASE 9 U/L (0-55); ALBUMIN 2.9 GM/DL (3.2-4.5); ALKALINE PHOSPHATASE 48 U/L (40-136); BILIRUBIN,TOTAL 0.4 MG/DL (0.1-1.0); BUN/CREATININE RATIO 34; CALCIUM 7.9 MG/DL (8.5-10.1); CARBON DIOXIDE 25 MMOL/L (21-32); CHLORIDE 101 MMOL/L (98-107); CREATININE SERUM 0.58 MG/DL (0.60-1.30); GFR ESTIMATED > 60; GLUCOSE 92 MG/DL (70-105); POTASSIUM 3.6 MMOL/L (3.6-5.0); SODIUM 134 MMOL/L (135-145); TOTAL PROTEIN 4.9 GM/DL (6.4-8.2)
--- NOTE | 2019-06-27 06:59 | NUR ---
Pt was able to void at 0630. Was not able to measure as pt did not make it to toilet. Did bladder scan post void - 34 ml. Sent text to dr. Marcum and informed him of pts BUN and creatinine and that pt was able to urinate.
[2019-06-27] MEDS ORDERED: ZINC OXIDE 16% OINT (BUTT PASTE) 113 GM TUBE TOP PRN (07:15)
[2019-06-27] MEDS ORDERED: POLYETHYLENE GLYCOL 17 GM (MIRALAX) PACK PO NR (07:45)
[2019-06-27 08:00] VITALS: BP 147/92
[2019-06-27] MEDS: DOCUSATE CALCIUM 240 MG (SURFAK) CAP PO SCH (10:07)
[2019-06-27] MEDS: amLODIPine 10 MG (NORVASC) TAB PO SCH (10:08)
[2019-06-27] MEDS: TIMOLOL MALEATE 0.5% 5 ML (TIMOPTIC) BTL OU SCH ×2 (10:08→21:31)
[2019-06-27] MEDS: PANTOPRAZOLE 40 MG (PROTONIX) VIAL IV SCH (10:09)
[2019-06-27] MEDS: BETAMETHASONE DIPRO (AUGMENTED) 0.05% CREAM 15 GM TP SCH ×2 (10:09→21:31)
--- NOTE | 2019-06-27 11:13 | Progress Note - Surgery ---
LUCA MAZA,MED STUDENT 06/27/19 1112: Subjective Date Seen by a Provider: Jun 27, 2019 Time Seen by a Provider: 10:30 Subjective/Events-last exam Patient is feeling well today. She has not had a bowel movement or passed flatus since surgery. Denies abdominal pain, nausea, or vomiting. She is walking the halls every day and using incentive spirometry as instructed. No new complaints at this time. Focused Exam Lactate Level 06/25/19 12:25: Lactic Acid Level 1.34 Objective Exam Vital Signs Date Time Temp Pulse Resp B/P (MAP) Pulse Ox O2 Delivery O2 Flow Rate FiO2 06/27/19 08:00 37.0 89 18 147/92 (110) 94 Room Air 06/27/19 07:00 81 06/27/19 03:20 37.1 90 18 164/89 (114) 95 Room Air 06/27/19 01:02 77 06/27/19 00:22 36.5 82 20 150/54 (86) 97 Room Air 06/26/19 20:00 Room Air 06/26/19 19:35 37.0 86 18 149/73 (98) 99 Room Air 06/26/19 18:59 107 06/26/19 17:51 36.6 86 16 156/75 (102) 98 Room Air 06/26/19 12:16 87 06/26/19 11:47 36.8 80 18 148/77 (100) 99 Room Air I & O 06/27/19 07:00 Intake Total 4570 ml Output Total 500 ml Balance 4070 ml Capillary Refill : Less Than 3 Seconds General Appearance: No Apparent Distress, WD/WN HEENT: Moist Mucous Membranes Respiratory: Chest Non Tender, No Accessory Muscle Use, No Respiratory Distress Gastrointestinal: soft, no organomegaly, distended (mild), tenderness (mild diffuse tenderness), other (abdominal incisions appear clean, dry, and intact. No erythema) Neurologic/Psychiatric: Alert, Normal Mood/Affect Skin: Normal Color, Warm/Dry Lymphatic: No Adenopathy Results Lab Laboratory Tests 06/27/19 05:29: White Blood Count 7.9, Red Blood Count 3.86L, Hemoglobin 11.4L, Hematocrit 33L, Mean Corpuscular Volume 85, Mean Corpuscular Hemoglobin 30, Mean Corpuscular Hemoglobin Concent 35, Red Cell Distribution Width 13.5, Platelet Count 301, Mean Platelet Volume 9.2, Neutrophils (%) (Auto) 54, Lymphocytes (%) (Auto) 29, Monocytes (%) (Auto) 17H, Eosinophils (%) (Auto) 1, Basophils (%) (Auto) 0, Neutrophils # (Auto) 4.2, Lymphocytes # (Auto) 2.2, Monocytes # (Auto) 1.3H, Eosinophils # (Auto) 0.1, Basophils # (Auto) 0.0, Sodium Level 134L, Potassium Level 3.6, Chloride Level 101, Carbon Dioxide Level 25, Anion Gap 8, Blood Urea Nitrogen 20H, Creatinine 0.58L, Estimat Glomerular Filtration Rate > 60, BUN/Creatinine Ratio 34, Glucose Level 92, Calcium Level 7.9L, Corrected Calcium 8.8, Total Bilirubin 0.4, Aspartate Amino Transf (AST/SGOT) 17, Alanine Aminotransferase (ALT/SGPT) 9, Alkaline Phosphatase 48, Total Protein 4.9L, Albumin 2.9L Assessment/Plan Assessment/Plan Assessment/Plan Incarcerated Right Femoral Hernia s/p laparoscopic GUANAKO hernia repair Chronic Pain Pain control and IV fluids Advance diet as tolerated Encourage ambulation Continue IS Clinical Quality Measures DVT/VTE Risk/Contraindication: Risk Factor Score Per Nursin RFS Level Per Nursing on Admit: 3=High BROCK MARCUM DO 06/27/19 1406: Subjective Time Seen by a Provider: 10:30 Subjective/Events-last exam Pt looks good and wants to go home, she is very happy today. Denied abdominal pain. Objective Exam Gastrointestinal: distended (more than yesterday) Assessment/Plan Assessment/Plan Assessment/Plan Pt abdomen is a little bit too distended, would like to wait until she has return of bowel function and then send her home. Trying to avoid NGT. Encourage ambulation, chewing (gum or food - which helps with return of peristalsis) and IS use. Supervisory-Addendum Brief Verification & Attestation Participated in pt care: history, MDM, physical Personally performed: exam, history, MDM Care discussed with: Medical Student Procedures: n/a Verification and Attestation of Medical Student E/M Service A medical student performed and documented this service in my presence. I reviewed and verified all information documented by the medical student and made modifications to such information, when appropriate. I personally performed the physical exam and medical decision making. Brock Marcum, Jun 27, 2019,14:06 LUCA MAZA,MED STUDENT Jun 27, 2019 11:12 BROCK MARCUM DO Jun 27, 2019 14:06
--- NOTE | 2019-06-27 11:36 | Physical Therapy Progress Note ---
Therapy Progress Note Patient declined PT at this time. RN and family present. PT will attempt in a.m. 1 ref ([id number]) EL VELÁZQUEZ PT Jun 27, 2019 11:36
--- NOTE | 2019-06-27 11:47 | NUR ---
CM/SS spoke with the patient and the patients daughter to discuss needs upon discharge. Plan: The patient stated to this CM/SS that she did not plan on going home today. The patient states that when she can discharge, she will return home. The daughter also verbalized this. DME: The patient says that she previously used [employer] for her medical equipment and would like to continue with them. A choice form was signed and completed. [facility] was contacted and information was sent. They will deliver walker today. The patient also has a cane at home. No other medical equipment needs at this tme Summary: The patient stated that she did not have any other needs from this CM/SS at this time. The patient and her daughter verbalized understanding as to where the equipment will be delivered from. Will continue to follow. Addendum: 06/27/19 at 1201 by KRIS SCHAEFFER SS Reviewed / approved
[2019-06-27 12:00] VITALS: BP 165/96
--- NOTE | 2019-06-27 13:08 | Progress Note - Hospitalist ---
CARINA DUEÑAS MED STUDENT 06/27/19 1308: Subjective HPI/CC On Admission Date Seen by Provider: Jun 27, 2019 Time Seen by Provider: 08:25 Chief complaint: Abdominal pain. HPI: This is an 84yoWF clinic Pt of Dr. Thomas who presented to the ER with abdominal pain found to have an incarcerated femoral hernia, was brought to surgery with s/p repair by Dr. Marcum, and is currently doing well and remains stable through the night. Her BP remains elevated but Pt denies any significant problems. She is very hard of hearing, making it difficult to communicate. Subjective/Events-last exam * Had difficulty urinating last night, but did void urine * Increased BUN, decreased Cr * Low calcium, albumin, protein * Low RBC, Hct, Hgb * Nichols well overall today, only complains abdominal pain near incision site * Has had flatus but no BM * No NG tube, not NPO, has been eating Review of Systems General: No Chills; Fatigue HEENT: No Head Aches, No Sinus Congestion, No Sore Throat Pulmonary: No Dyspnea, No Cough Cardiovascular: Chest Pain (relates to GERD/gas); No: Edema Gastrointestinal: Abdominal Pain (near incision site); No: Nausea, Vomiting Genitourinary: No Dysuria, No Frequency Neurological: No: Numbness Focused Exam Lactate Level 06/25/19 12:25: Lactic Acid Level 1.34 Objective Exam Vital Signs Vital Signs Date Time Temp Pulse Resp B/P (MAP) Pulse Ox O2 Delivery O2 Flow Rate FiO2 06/27/19 12:25 81 06/27/19 08:00 37.0 18 147/92 (110) 94 Room Air 06/25/19 21:00 4 Capillary Refill : Less Than 3 Seconds General Appearance: No Apparent Distress Respiratory: Lungs Clear, Normal Breath Sounds, No Accessory Muscle Use, No Respiratory Distress Cardiovascular: Regular Rate, Rhythm, No Edema, No Murmur, Normal Peripheral Pulses Gastrointestinal: Normal Bowel Sounds Extremity: No No Calf Tenderness, No No Pedal Edema Neurologic/Psychiatric: Alert, Oriented x3, Normal Mood/Affect Results/Procedures Lab Laboratory Tests 06/27/19 05:29 Patient resulted labs reviewed. Assessment/Plan Assessment and Plan Assess & Plan/Chief Complaint Assessment: 1. s/p laparoscopic GUANAKO hernia repair for incarcerated right femoral hernia 2. abnormal urinalysis 3. anemia 4. anxiety 5. HTN 6. GERD 7. Chronic pain Plan 1. continue postoperative protocol 2. monitor bowel function 3. monitor anemia 4. consider repeat urinalysis, urine culture, monitor symptoms and function 5. consider continuing medication for chronic conditions when GI function returns Clinical Quality Measures DVT/VTE Risk/Contraindication: Risk Factor Score Per Nursin RFS Level Per Nursing on Admit: 3=High SAIDA SUH DO 06/27/192039: Subjective Subjective/Events-last exam Needs a four-wheel walker with platform so that order was placed. Not producing any gas yet. Urinary output had decreased so maintained on IV fluids. NG tube was out. Daughter at the bedside. Review of Systems General: Fatigue Gastrointestinal: Abdominal Pain (near incision site) Objective Exam General Appearance: No Apparent Distress, WD/WN Respiratory: Lungs Clear, Normal Breath Sounds Cardiovascular: Regular Rate, Rhythm Neurologic/Psychiatric: Alert, Oriented x3, No Motor/Sensory Deficits, Normal Mood/Affect Assessment/Plan Assessment and Plan Assess & Plan/Chief Complaint Supportive care Walker with platforms ordered Diagnosis/Problems Diagnosis/Problems (1) Incarcerated right inguinal hernia Status: Acute (2) Small bowel obstruction Status: Acute (3) Hypertension Status: Chronic Qualifiers: Qualified Codes: I10 - Essential (primary) hypertension (4) Presbycusis of both ears Status: Chronic Supervisory-Addendum Brief Verification & Attestation Participated in pt care: history, MDM, physical Personally performed: exam, history, MDM, supervision of care Care discussed with: Medical Student Procedures: n/a Results interpretation: Verified all documentation Verification and Attestation of Medical Student E/M Service A medical student performed and documented this service in my presence. I reviewed and verified all information documented by the medical student and made modifications to such information, when appropriate. I personally performed the physical exam and medical decision making. Saida Suh, Jun 27, 2019,20:40 CARINA DUEÑAS MED STUDENT Jun 27, 2019 13:08 SAIDA SUH DO Jun 27, 2019 20:40
--- NOTE | 2019-06-27 14:00 | NUR ---
BLADDER SCAN-138. DENIES DISCOMFORT.
--- NOTE | 2019-06-27 14:37 | NUR ---
DR. OSUNA NOTIFIED THAT PT. HAS NOT VOIDED IN [address] OSUNA STATED TO WATCH HER. NO NEW ORDER'S AT THIS TIME.
--- NOTE | 2019-06-27 15:08 | Physical Therapy Progress Note ---
Therapy Progress Note Patient declined p.m. treatment. Will attempt in a.m. Patient's bilateral platform FWW delivered on this date. 1 ref EL VELÁZQUEZ PT Jun 27, 2019 15:08
[2019-06-27] MEDS: morphine INJ 4 MG/ML 1 ML (VIAL/SYRINGE) IVP PRN ×3 (15:58→23:01)
[2019-06-27 16:00] VITALS: BP 171/92
[2019-06-27 20:29] VITALS: BP 174/97
[2019-06-27] MEDS: CLORAZEPATE 7.5 MG (TRANXENE) TAB PO PRN (21:31)
[2019-06-27] MEDS: SENNA W/DOCUSATE (SENOKOT S) TABLET PO SCH (21:31)
[2019-06-27] MEDS: LATANOPROST 0.005% (XALATAN) OPHTH SOLN 2.5 ML OU SCH (21:31)
[2019-06-27] MEDS: ENOXAPARIN 40 MG/0.4 ML (LOVENOX) SYR SC SCH (21:31)
[2019-06-28] VITALS (8 sets, daily range): BP systolic 160–193; BP diastolic 70–98
[2019-06-28] MEDS: NS W/KCL 40 MEQ/L 1,000 ML IV SCH ×4 (01:06→17:35)
[2019-06-28] MEDS: morphine INJ 4 MG/ML 1 ML (VIAL/SYRINGE) IVP PRN ×6 (04:35→21:59)
[2019-06-28] MEDS: ACETAMINOPHEN 500 MG TAB (TYLENOL) PO SCH ×3 (05:41→19:58)
[2019-06-28] MEDS: LEVOTHYROXINE 100 MCG (LEVOTHROID) TAB PO SCH (05:48)
[2019-06-28] MEDS: LACTATED RINGERS 1,000 ML IV SCH ×3 (06:07→20:28)
[2019-06-28 06:35] LABS: BASOPHILS % (AUTO) 0 % (0-10); EOSINOPHILS # (AUTO) 0.1 10^3/uL (0.0-0.3); EOSINOPHILS % (AUTO) 1 % (0-10); HEMATOCRIT 33 % (35-52); HEMOGLOBIN 11.1 G/DL (11.5-16.0); LYMPHOCYTES # (AUTO) 1.8 X 10^3 (1.0-4.0); LYMPHOCYTES % (AUTO) 21 % (12-44); MEAN CORPUSCULAR HEMOGLOBIN 29 PG (25-34); MEAN CORPUSCULAR HGB CONC 34 G/DL (32-36); MEAN CORPUSCULAR VOLUME 86 FL (80-99); MEAN PLATELET VOLUME 9.8 FL (7.4-10.4); MONOCYTES # (AUTO) 1.4 X 10^3 (0.0-1.0); MONOCYTES % (AUTO) 16 % (0-12); NEUTROPHILS # (AUTO) 5.5 X 10^3 (1.8-7.8); NEUTROPHILS % (AUTO) 63 % (42-75); PLATELET COUNT 328 10^3/uL (130-400); RED CELL DISTRIBUTION WIDTH 13.9 % (10.0-14.5); WHITE BLOOD COUNT 8.7 10^3/uL (4.3-11.0)
[2019-06-28 06:56] LABS: ALANINE AMINOTRANSFERASE 7 U/L (0-55); ALBUMIN 2.8 GM/DL (3.2-4.5); ALKALINE PHOSPHATASE 43 U/L (40-136); BILIRUBIN,TOTAL 0.4 MG/DL (0.1-1.0); BUN/CREATININE RATIO 22; CALCIUM 7.8 MG/DL (8.5-10.1); CARBON DIOXIDE 20 MMOL/L (21-32); CHLORIDE 104 MMOL/L (98-107); CREATININE SERUM 0.55 MG/DL (0.60-1.30); GFR ESTIMATED > 60; GLUCOSE 85 MG/DL (70-105); POTASSIUM 4.6 MMOL/L (3.6-5.0); SODIUM 133 MMOL/L (135-145)
--- NOTE | 2019-06-28 08:19 | Progress Note - Surgery ---
LUCA MAZA,MED STUDENT 06/28/19 0819: Subjective Date Seen by a Provider: Jun 28, 2019 Time Seen by a Provider: 07:40 Subjective/Events-last exam Ms. Reese complains of increased diffuse abdominal pain, distention, nausea, fatigue, and chills. She has not had a bowel movement since surgery but she has been passing flatus. She has started urinating more regularly. Denies chest pain or shortness of breath. Focused Exam Lactate Level 06/25/19 12:25: Lactic Acid Level 1.34 Objective Exam Vital Signs Date Time Temp Pulse Resp B/P (MAP) Pulse Ox O2 Delivery O2 Flow Rate FiO2 06/28/19 07:00 89 06/28/19 05:00 170/90 (116) 06/28/19 04:00 37.0 79 20 181/84 (116) 97 Room Air 06/28/19 01:00 85 06/28/19 00:00 37.0 83 24 176/91 (119) 95 Room Air 06/27/19 20:30 Room Air 06/27/19 20:29 37.2 90 20 174/97 (122) 97 Room Air 06/27/19 19:00 95 06/27/19 16:00 36.6 91 18 171/92 (118) 96 Room Air 06/27/19 12:25 81 06/27/19 12:00 37.4 85 18 165/96 (119) 95 Room Air I & O 06/28/19 07:00 Intake Total 3170 ml Output Total 1400 ml Balance 1770 ml Capillary Refill : Less Than 3 Seconds General Appearance: No Apparent Distress, WD/WN HEENT: Pharynx Normal, Moist Mucous Membranes Neck: Non Tender, Supple Respiratory: Lungs Clear, Normal Breath Sounds, No Respiratory Distress Cardiovascular: Regular Rate, Rhythm, Normal Peripheral Pulses Gastrointestinal: distended (mildly distended, slightly more than yesterday), tenderness (diffuse) Extremity: Normal Inspection, Non Tender Neurologic/Psychiatric: Alert, Oriented x3, Normal Mood/Affect Skin: Normal Color, Warm/Dry Lymphatic: No Adenopathy Results Lab Laboratory Tests 06/28/19 05:30: White Blood Count 8.7, Red Blood Count 3.84L, Hemoglobin 11.1L, Hematocrit 33L, Mean Corpuscular Volume 86, Mean Corpuscular Hemoglobin 29, Mean Corpuscular Hemoglobin Concent 34, Red Cell Distribution Width 13.9, Platelet Count 328, Mean Platelet Volume 9.8, Neutrophils (%) (Auto) 63, Lymphocytes (%) (Auto) 21, Monocytes (%) (Auto) 16H, Eosinophils (%) (Auto) 1, Basophils (%) (Auto) 0, Neutrophils # (Auto) 5.5, Lymphocytes # (Auto) 1.8, Monocytes # (Auto) 1.4H, Eosinophils # (Auto) 0.1, Basophils # (Auto) 0.0, Sodium Level 133L, Potassium Level 4.6, Chloride Level 104, Carbon Dioxide Level 20L, Anion Gap 9, Blood Urea Nitrogen 12, Creatinine 0.55L, Estimat Glomerular Filtration Rate > 60, BUN/Cr eatinine Ratio 22, Glucose Level 85, Calcium Level 7.8L, Corrected Calcium 8.8, Total Bilirubin 0.4, Aspartate Amino Transf (AST/SGOT) 11, Alanine Aminotransferase (ALT/SGPT) 7, Alkaline Phosphatase 43, Total Protein 5.0L, Albumin 2.8L Assessment/Plan Assessment/Plan Assessment/Plan Incarcerated Right Femoral Hernia s/p laparoscopic GUANAKO hernia repair Chronic Pain Pain control and IV fluids Awaiting return of bowel function prior to sending her home Encourage ambulation, diet as tolerates Clinical Quality Measures DVT/VTE Risk/Contraindication: Risk Factor Score Per Nursin RFS Level Per Nursing on Admit: 3=High QUEVEDOJUAN ANTONIO Marilee DO 06/28/19 1433: Subjective Subjective/Events-last exam having slight more abdominal pain today. not passing much flatus and no bm. Not wanting food. Urinating a lot. Her abdomen is a little more distended today she states. Having a little nausea, no emesis. Denies fever sweats chills shortness of breath or chest pain. Objective Exam General Appearance: No Apparent Distress, WD/WN HEENT: PERRL/EOMI, Pharynx Normal Respiratory: Chest Non Tender, No Accessory Muscle Use, No Respiratory Distress Cardiovascular: Regular Rate, Rhythm Gastrointestinal: soft, distended (mildly ), tenderness (diffuse but minimal with palpation, incisions c/d/i) Extremity: Normal Inspection, Non Tender Neurologic/Psychiatric: Alert, Oriented x3, Normal Mood/Affect Skin: Normal Color, Warm/Dry Lymphatic: No Adenopathy Assessment/Plan Assessment/Plan Assessment/Plan Incarcerated Right Femoral Hernia s/p laparoscopic GUANAKO hernia repair Chronic Pain postoperative ileus abdomen slightly distended and no flatus or bm. instructed to keep activity up ambulating and if becoming nauseated back off on diet. patient in agreement with plan. repeat labs in am Supervisory-Addendum Brief Verification & Attestation Participated in pt care: history, MDM, physical Personally performed: exam, history, MDM, supervision of care Care discussed with: Medical Student Procedures: n/a Results interpretation: Verified all documentation Verification and Attestation of Medical Student E/M Service A medical student performed and documented this service in my presence. I reviewed and verified all information documented by the medical student and made modifications to such information, when appropriate. I personally performed the physical exam and medical decision making. Juan Antonio Quevedo, Jun 28, 2019,14:33 LUCA MAZA,MED STUDENT Jun 28, 2019 08:19 JUAN ANTONIO QUEVEDO DO Jun 28, 2019 14:33
[2019-06-28] MEDS: PANTOPRAZOLE 40 MG (PROTONIX) VIAL IV SCH (08:25)
[2019-06-28] MEDS: amLODIPine 10 MG (NORVASC) TAB PO SCH (08:25)
[2019-06-28] MEDS: DOCUSATE CALCIUM 240 MG (SURFAK) CAP PO SCH (08:25)
[2019-06-28] MEDS: TIMOLOL MALEATE 0.5% 5 ML (TIMOPTIC) BTL OU SCH ×2 (08:26→21:00)
[2019-06-28] MEDS: BETAMETHASONE DIPRO (AUGMENTED) 0.05% CREAM 15 GM TP SCH ×2 (08:27→21:00)
--- NOTE | 2019-06-28 10:42 | Physical Therapy Daily Note ---
PT Daily Note-Current Subjective Agrees to PT. Requests to toilet. Transfers SCALE: Activities may be completed with or without assistive devices. 3-Cyvnmwgcqk-tliwtvr completes the activity by him/herself with no assistance from a helper. 5-Set-up or Clean-up Assistance-helper sets up or cleans up; patient completes activity. [place] assists only prior to or following the activity. 4-Supervision or Touching Assistance-helper provides verbal cues and/or touching/steadying and/or contact guard assistance as patient completes activity. Assistance may be provided throughout the activity or intermittently. 3-Partial/Moderate Assistance-helper does LESS THAN HALF the effort. [place]ell li fts, holds or supports trunk or limbs, but provides less than half the effort. 2-Substantial/Maximal Assistance-helper does MORE THAN HALF the effort. [place] lifts or holds trunk or limbs and provides more than half the effort. 6-Gqhvpzqmb-qzludb does ALL the effort. Patient does none of the effort to complete the activity. Or, the assistance of 2 or more helpers is required for the patient to complete the activity. If activity was not attempted, code reason: 7-Patient Refused. 9-Not Applicable-not attempted and the patient did not perform the activity before the current illness, exacerbation or injury. 10-Not Attempted due to Environmental Limitations-(lack of equipment, weather restraints, etc.). 88-Not Attempted due to Medical Conditions or Safety Concerns. Treatments supine to sit EOB with min assist and skilled cues for sequencing. CGA sit to stand and walked 20 ft x 2 with B platform FWW. Toileted. Pt able to complete pericare. Pt up in [facility] post treatment with needs met. Assessment Current Status: Good Progress gait is slow and shuffled with narrow MICHELLE and decreased step length. PT Draw In Hand Goals Draw In Hand Goals PT Senior Living Goals Time Frame: Jul 04, 2019 Sit to Lying (QC): 6 Lying-Sitting on Side/Bed(QC): 6 Sit to Stand (QC): 6 Roll Left to Right (QC): 6 Chair/Ywi-za-Tkocb Xfer(QC): 6 Does the Patient Walk: Yes Distance: 150' Walk 10 feet (QC): 6 Walk 10ft-Uneven Surface(QC): 6 Walk 50ft with 2 Turns (QC): 6 Walk 150 ft (QC): 6 Gait Assistive Device: Walker Platform (bilateral UE) PT Plan Problem List Problem List: Activity Tolerance, Functional Strength, Safety, Balance, Gait, Transfer, Bed Mobility Treatment/Plan Treatment Plan: Continue Plan of Care Treatment Plan: Bed Mobility, Education, Functional Activity [place], Functional Strength, Gait, Safety, Therapeutic Exercise, Transfers Treatment Duration: Jul 04, 2019 Frequency: 6 times per week Estimated Hrs Per Day: .25 hour per day Patient and/or Family Agrees t: Yes Safety Risks/Education Patient Education: Transfer Techniques, Safety Issues Teaching Recipient: Patient Teaching Methods: Demonstration, Discussion Response to Teaching: Reinforcement Needed Discharge Recommendations Therapy Discharge Recommendati: Post Acute PT Time/GCodes Time In: 1015 Time Out: 1043 Total Billed Treatment Time: 23 Total Billed Treatment visit GT 23 JUDIE MARTINEZ PT Jun 28, 2019 10:42
[2019-06-28] MEDS: cloNIDine 0.1 MG (CATAPRES) TAB PO PRN ×2 (12:17→18:07)
--- NOTE | 2019-06-28 12:42 | Progress Note - Hospitalist ---
Subjective HPI/CC On Admission Date Seen by Provider: Jun 28, 2019 Time Seen by Provider: 11:30 Chief complaint: Abdominal pain. HPI: This is an 84yoWF clinic Pt of Dr. Thomas who presented to the ER with abdominal pain found to have an incarcerated femoral hernia, was brought to surgery with s/p repair by Dr. Marcum, and is currently doing well and remains stable through the night. Her BP remains elevated but Pt denies any significant problems. She is very hard of hearing, making it difficult to communicate. Subjective/Events-last exam Patient doing well but slow to recover from postop ileus Really can't force herself to eat much more Family at the bedside Was up in a chair and walk with therapy Denied any significant increase pain Overall feels much better but she feels like she slow to recover Review of Systems General: Fatigue Gastrointestinal: Abdominal Pain Objective Exam Vital Signs Vital Signs Date Time Temp Pulse Resp B/P (MAP) Pulse Ox O2 Delivery O2 Flow Rate FiO2 06/28/19 13:00 93 06/28/19 12:05 36.1 18 179/93 (121) 98 Room Air 06/25/19 21:00 4 Capillary Refill : Less Than 3 Seconds General Appearance: No Apparent Distress, WD/WN, Chronically ill, Thin Respiratory: Chest Non Tender, Lungs Clear, Normal Breath Sounds, No Accessory Muscle Use, No Respiratory Distress Cardiovascular: Regular Rate, Rhythm, No Edema, No Gallop, No JVD, No Murmur, Normal Peripheral Pulses Neurologic/Psychiatric: Alert, Oriented x3, No Motor/Sensory Deficits, Normal Mood/Affect Results/Procedures Lab Laboratory Tests 06/28/19 05:30 Patient resulted labs reviewed. Assessment/Plan Assessment and Plan Assess & Plan/Chief Complaint Assessment: Incarcerated femoral hernia status post repair Postop ileus Hypertension [id number] Presbycusis Anxiety Plan: Supportive care Walker with platforms ordered Advance diet slowly Diagnosis/Problems Diagnosis/Problems (1) Incarcerated right inguinal hernia Status: Acute (2) Small bowel obstruction Status: Acute (3) Hypertension Status: Chronic Qualifiers: Hypertension type: essential hypertension Qualified Codes: I10 - Essential (primary) hypertension (4) Presbycusis of both ears Status: Chronic Clinical Quality Measures DVT/VTE Risk/Contraindication: Risk Factor Score Per Nursin RFS Level Per Nursing on Admit: 3=High LUMA SUH DO Jun 28, 2019 12:42
[2019-06-28] MEDS: fentaNYL PATCH 75 MCG (DURAGESIC) TOP SCH (18:00)
[2019-06-28] MEDS: FENTANYL PATCH REMOVAL TP SCH (18:00)
[2019-06-28] MEDS: CLORAZEPATE 7.5 MG (TRANXENE) TAB PO PRN (19:58)
[2019-06-28] MEDS: SENNA W/DOCUSATE (SENOKOT S) TABLET PO SCH (19:59)
[2019-06-28] MEDS: ENOXAPARIN 40 MG/0.4 ML (LOVENOX) SYR SC SCH (19:59)
[2019-06-28] MEDS: LATANOPROST 0.005% (XALATAN) OPHTH SOLN 2.5 ML OU SCH (21:00)
[2019-06-29] VITALS: BP 161/79
[2019-06-29] MEDS: morphine INJ 4 MG/ML 1 ML (VIAL/SYRINGE) IVP PRN ×11 (00:09→23:45)
[2019-06-29] MEDS: NS W/KCL 40 MEQ/L 1,000 ML IV SCH ×2 (01:57→12:42)
[2019-06-29 04:00] VITALS: BP 139/67
[2019-06-29] MEDS: ACETAMINOPHEN 500 MG TAB (TYLENOL) PO SCH ×3 (04:14→19:56)
[2019-06-29] MEDS: LACTATED RINGERS 1,000 ML IV SCH (04:28)
[2019-06-29] MEDS: LEVOTHYROXINE 100 MCG (LEVOTHROID) TAB PO SCH (06:12)
[2019-06-29 07:44] LABS: HEMOGLOBIN 11.9 G/DL (11.5-16.0); MEAN PLATELET VOLUME 9.7 FL (7.4-10.4); RED CELL DISTRIBUTION WIDTH 13.8 % (10.0-14.5); WHITE BLOOD COUNT 12.4 10^3/uL (4.3-11.0)
[2019-06-29 08:00] VITALS: BP 172/87
[2019-06-29 08:10] LABS: BUN/CREATININE RATIO 14; CARBON DIOXIDE 19 MMOL/L (21-32); CHLORIDE 101 MMOL/L (98-107); CREATININE SERUM 0.51 MG/DL (0.60-1.30); GFR ESTIMATED > 60; GLUCOSE 61 MG/DL (70-105); MAGNESIUM 1.3 MG/DL (1.6-2.4); SODIUM 128 MMOL/L (135-145)
[2019-06-29] MEDS: BETAMETHASONE DIPRO (AUGMENTED) 0.05% CREAM 15 GM TP SCH ×2 (09:37→20:37)
[2019-06-29] MEDS: amLODIPine 10 MG (NORVASC) TAB PO SCH (09:37)
[2019-06-29] MEDS: TIMOLOL MALEATE 0.5% 5 ML (TIMOPTIC) BTL OU SCH ×2 (09:37→20:37)
[2019-06-29] MEDS: DOCUSATE CALCIUM 240 MG (SURFAK) CAP PO SCH (09:37)
[2019-06-29] MEDS: PANTOPRAZOLE 40 MG (PROTONIX) VIAL IV SCH (09:37)
--- NOTE | 2019-06-29 11:00 | Progress Note - Surgery ---
SHAUNNALUCA,MED STUDENT 06/29/19 1100: Subjective Date Seen by a Provider: Jun 29, 2019 Time Seen by a Provider: 07:50 Subjective/Events-last exam Continues to complain of abdominal pain but this is improved slightly from yesterday. She also complains of pain in her legs, which she states is likely due to her arthritis. She continues to pass flatus but has not had a bowel movement yet. She has only been ambulatory to and from the bathroom to urinate. Tolerating soft diet but does not eat much. Using IS as instructed. Objective Exam Vital Signs Date Time Temp Pulse Resp B/P (MAP) Pulse Ox O2 Delivery O2 Flow Rate FiO2 06/29/19 08:00 37.5 93 20 172/87 (115) 97 Room Air 06/29/19 07:01 84 06/29/19 04:00 37.0 93 20 139/67 (91) 98 Room Air 06/29/19 01:00 78 06/29/19 00:00 36.2 77 18 161/79 (106) 98 Room Air 06/28/19 21:00 35.9 75 16 190/70 (110) 96 Room Air 06/28/19 20:10 160/88 (112) 06/28/19 20:00 Room Air 06/28/19 19:00 97 06/28/19 17:23 36.1 85 16 192/80 (117) 98 Room Air 06/28/19 13:00 93 06/28/19 12:05 36.1 73 18 179/93 (121) 98 Room Air I & O 06/29/19 07:00 Intake Total 3890 ml Output Total 2900 ml Balance 990 ml Capillary Refill : Less Than 3 Seconds General Appearance: No Apparent Distress, WD/WN HEENT: PERRL/EOMI, Pharynx Normal Neck: Non Tender, Supple Respiratory: Chest Non Tender, No Accessory Muscle Use, No Respiratory Distress Cardiovascular: Regular Rate, Rhythm, Normal Peripheral Pulses Gastrointestinal: soft, distended (mildly, improved since yesterday), tenderness (diffuse but minimal with palpation, incisions c/d/i) Extremity: Normal Inspection, Non Tender Neurologic/Psychiatric: Alert, Oriented x3, Normal Mood/Affect Skin: Normal Color, Warm/Dry Lymphatic: No Adenopathy Results Lab Laboratory Tests 06/29/19 06:33: White Blood Count 12.4H, Red Blood Count 4.01L, Hemoglobin 11.9, Hematocrit 34L, Mean Corpuscular Volume 86, Mean Corpuscular Hemoglobin 30, Mean Corpuscular Hemoglobin Concent 35, Red Cell Distribution Width 13.8, Platelet Count 334, Mean Platelet Volume 9.7, Sodium Level 128L, Potassium Level 5.0, Chloride Level 101, Carbon Dioxide Level 19L, Anion Gap 8, Blood Urea Nitrogen 7, Creatinine 0.51L, Estimat Glomerular Filtration Rate > 60, BUN/Creatinine Ratio 14, Glucose Level 61L, Calcium Level 8.0L, Magnesium Level 1.3L Assessment/Plan Assessment/Plan Assessment/Plan Incarcerated Right Femoral Hernia s/p laparoscopic GUANAKO hernia repair Chronic Pain Postoperative ileus Abdomen slightly distended but improved since yesterday She is passing flatus but no BM yet. Encouraged her to keep activity up ambulating and if becoming nauseated back off on diet. patient in agreement with plan. Continue IV fluids, pain control, and IS. Repeat labs in am Clinical Quality Measures DVT/VTE Risk/Contraindication: Risk Factor Score Per Nursin RFS Level Per Nursing on Admit: 3=High JUAN ANTONIO QUEVEDO DO 06/29/19 1811: Subjective Subjective/Events-last exam still with abdominal pain but better than yesterday. Passing flatus, no bm. Patient no appetite and not eating. Abdomen less distended she states. Chronic pain. so legs hurt she states. Using IS. Denies n/v fever sweats chills shortness of breath or chest pain. Objective Exam General Appearance: No Apparent Distress, WD/WN HEENT: PERRL/EOMI Neck: Non Tender Respiratory: Chest Non Tender, No Accessory Muscle Use, No Respiratory Distress Cardiovascular: Regular Rate, Rhythm Gastrointestinal: distended (minimal, improved since yesterday), tenderness (diffuse but minimal with palpation, incisions c/d/i) Extremity: Normal Inspection, Non Tender Neurologic/Psychiatric: Alert, Oriented x3, Normal Mood/Affect Skin: Normal Color, Warm/Dry Lymphatic: No Adenopathy Assessment/Plan Assessment/Plan Assessment/Plan Incarcerated Right Femoral Hernia s/p laparoscopic GUANAKO hernia repair Chronic Pain Postoperative ileus pain control passing flatus no bm, no appetite, she is going to try more today. try and increase activity IS Home soon. Supervisory-Addendum Brief Verification & Attestation Participated in pt care: history, MDM, physical Personally performed: exam, history, MDM, supervision of care Care discussed with: Medical Student Procedures: n/a Results interpretation: Verified all documentation Verification and Attestation of Medical Student E/M Service A medical student performed and documented this service in my presence. I reviewed and verified all information documented by the medical student and made modifications to such information, when appropriate. I personally performed the physical exam and medical decision making. Juan Antonio Quevedo, Jun 29, 2019,18:11 LUCA MAZA,MED STUDENT Jun 29, 2019 11:00 JUAN ANTONIO QUEVEDO DO Jun 29, 2019 18:11
[2019-06-29 12:00] VITALS: BP 159/76
--- NOTE | 2019-06-29 12:47 | Progress Note - Hospitalist ---
Subjective HPI/CC On Admission Date Seen by Provider: Jun 29, 2019 Time Seen by Provider: 12:00 Chief complaint: Abdominal pain. HPI: This is an 84yoWF clinic Pt of Dr. Thomas who presented to the ER with abdominal pain found to have an incarcerated femoral hernia, was brought to surgery with s/p repair by Dr. Marcum, and is currently doing well and remains stable through the night. Her BP remains elevated but Pt denies any significant problems. She is very hard of hearing, making it difficult to communicate. Subjective/Events-last exam Patient doing much better Sodium level 128 Still very slow to recover Still pretty weak Family even feeds her and helps her to the bathroom Very dependent Check meds and labs Review of Systems General: Fatigue Gastrointestinal: Abdominal Pain Objective Exam Vital Signs Vital Signs Date Time Temp Pulse Resp B/P (MAP) Pulse Ox O2 Delivery O2 Flow Rate FiO2 06/29/19 15:45 37.4 93 20 138/68 (91) 98 Room Air 06/25/19 21:00 4 Capillary Refill : Less Than 3 Seconds General Appearance: No Apparent Distress, WD/WN Respiratory: Lungs Clear Cardiovascular: Regular Rate, Rhythm Neurologic/Psychiatric: Alert, Oriented x3, No Motor/Sensory Deficits, Normal Mood/Affect Results/Procedures Lab Laboratory Tests 06/29/19 06:33 Patient resulted labs reviewed. Assessment/Plan Assessment and Plan Assess & Plan/Chief Complaint Assessment: Incarcerated femoral hernia status post repair Postop ileus Hypertension [id number] Presbycusis Anxiety Hyponatremia Plan: Supportive care Walker with platforms ordered Advance diet slowly Diagnosis/Problems Diagnosis/Problems (1) Incarcerated right inguinal hernia Status: Acute (2) Small bowel obstruction Status: Acute (3) Hypertension Status: Chronic Qualifiers: Hypertension type: essential hypertension Qualified Codes: I10 - Essential (primary) hypertension (4) Presbycusis of both ears Status: Chronic (5) Hyponatremia Clinical Quality Measures DVT/VTE Risk/Contraindication: Risk Factor Score Per Nursin RFS Level Per Nursing on Admit: 3=High LUMA SUH DO Jun 29, 2019 12:47
[2019-06-29 15:45] VITALS: BP 138/68
[2019-06-29 19:29] VITALS: BP 165/81
[2019-06-29] MEDS: SENNA W/DOCUSATE (SENOKOT S) TABLET PO SCH (19:56)
[2019-06-29] MEDS: LATANOPROST 0.005% (XALATAN) OPHTH SOLN 2.5 ML OU SCH (19:58)
[2019-06-29] MEDS: ENOXAPARIN 40 MG/0.4 ML (LOVENOX) SYR SC SCH (19:58)
[2019-06-30 00:49] VITALS: BP 175/88
[2019-06-30] MEDS: morphine INJ 4 MG/ML 1 ML (VIAL/SYRINGE) IVP PRN ×4 (02:08→09:04)
[2019-06-30] MEDS: NS W/KCL 40 MEQ/L 1,000 ML IV SCH (02:15)
[2019-06-30] MEDS: ACETAMINOPHEN 500 MG TAB (TYLENOL) PO SCH ×2 (04:09→12:46)
[2019-06-30] MEDS: CLORAZEPATE 7.5 MG (TRANXENE) TAB PO PRN ×2 (04:12→04:14)
[2019-06-30 04:20] VITALS: BP 137/69
[2019-06-30] MEDS: LEVOTHYROXINE 100 MCG (LEVOTHROID) TAB PO SCH (06:08)
[2019-06-30 07:05] LABS: BASOPHILS # (AUTO) 0.1 10^3/uL (0.0-0.1); BASOPHILS % (AUTO) 1 % (0-10); EOSINOPHILS # (AUTO) 0.2 10^3/uL (0.0-0.3); EOSINOPHILS % (AUTO) 2 % (0-10); HEMATOCRIT 34 % (35-52); HEMOGLOBIN 11.5 G/DL (11.5-16.0); LYMPHOCYTES # (AUTO) 2.8 X 10^3 (1.0-4.0); LYMPHOCYTES % (AUTO) 24 % (12-44); MEAN CORPUSCULAR HEMOGLOBIN 29 PG (25-34); MEAN CORPUSCULAR HGB CONC 34 G/DL (32-36); MEAN CORPUSCULAR VOLUME 87 FL (80-99); MEAN PLATELET VOLUME 9.2 FL (7.4-10.4); MONOCYTES # (AUTO) 1.5 X 10^3 (0.0-1.0); MONOCYTES % (AUTO) 13 % (0-12); NEUTROPHILS # (AUTO) 7.2 X 10^3 (1.8-7.8); NEUTROPHILS % (AUTO) 61 % (42-75); PLATELET COUNT 370 10^3/uL (130-400); RED CELL DISTRIBUTION WIDTH 14.2 % (10.0-14.5); WHITE BLOOD COUNT 11.9 10^3/uL (4.3-11.0)
[2019-06-30 07:19] LABS: ALANINE AMINOTRANSFERASE 9 U/L (0-55); ALBUMIN 2.9 GM/DL (3.2-4.5); ALKALINE PHOSPHATASE 57 U/L (40-136); BILIRUBIN,TOTAL 0.4 MG/DL (0.1-1.0); BUN/CREATININE RATIO 13; CALCIUM 8.1 MG/DL (8.5-10.1); CARBON DIOXIDE 21 MMOL/L (21-32); CHLORIDE 102 MMOL/L (98-107); CREATININE SERUM 0.52 MG/DL (0.60-1.30); GFR ESTIMATED > 60; GLUCOSE 72 MG/DL (70-105); POTASSIUM 4.7 MMOL/L (3.6-5.0); SODIUM 132 MMOL/L (135-145); TOTAL PROTEIN 5.1 GM/DL (6.4-8.2)
[2019-06-30 07:25] VITALS: BP 174/85
--- NOTE | 2019-06-30 08:06 | Progress Note - Surgery ---
LUCA MAZA,MED STUDENT 06/30/19 0806: Subjective Date Seen by a Provider: Jun 30, 2019 Time Seen by a Provider: 07:45 Subjective/Events-last exam Ms. Reese continues to complain of abdominal pain which she states is about the same as yesterday. She has been passing flatus, but no bowel movement yet. She also reports ongoing arthritis pain in her legs and feet, which is improved by a topical gel that her daughter brought in. She has not been doing any walking except to and from the bathroom. Continues to use IS as instructed. Objective Exam Vital Signs Date Time Temp Pulse Resp B/P (MAP) Pulse Ox O2 Delivery O2 Flow Rate FiO2 06/30/19 07:25 37.3 93 18 174/85 (114) 96 Room Air 06/30/19 07:00 84 06/30/19 04:20 36.6 90 18 137/69 (91) 96 Room Air 06/30/19 01:00 93 06/30/19 00:49 37.0 95 18 175/88 (117) 95 Room Air 06/29/19 20:00 Room Air 06/29/19 19:29 36.8 99 20 165/81 (109) 98 Room Air 06/29/19 19:00 90 06/29/19 15:45 37.4 93 20 138/68 (91) 98 Room Air 06/29/19 13:17 90 06/29/19 12:00 36.6 84 18 159/76 (103) 97 Room Air I & O0 06/30/19 07:00 Intake Total 1570 ml Output Total 2825 ml Balance -1255 ml Capillary Refill : Less Than 3 Seconds General Appearance: No Apparent Distress, WD/WN Respiratory: Lungs Clear, Normal Breath Sounds, No Accessory Muscle Use, No Respiratory Distress Cardiovascular: Regular Rate, Rhythm Gastrointestinal: soft, distended (minimal, improved since yesterday), tenderness (diffuse but minimal with palpation, incisions c/d/i), other (diminished bowel sounds) Extremity: Normal Inspection, Non Tender Neurologic/Psychiatric: Alert, Normal Mood/Affect Skin: Normal Color, Warm/Dry Lymphatic: No Adenopathy Results Lab Laboratory Tests 06/30/19 06:00: White Blood Count 11.9H, Red Blood Count 3.90L, Hemoglobin 11.5, Hematocrit 34L, Mean Corpuscular Volume 87, Mean Corpuscular Hemoglobin 29, Mean Corpuscular Hemoglobin Concent 34, Red Cell Distribution Width 14.2, Platelet Count 370, Mean Platelet Volume 9.2, Neutrophils (%) (Auto) 61, Lymphocytes (%) (Auto) 24, Monocytes (%) (Auto) 13H, Eosinophils (%) (Auto) 2, Basophils (%) (Auto) 1, Neutrophils # (Auto) 7.2, Lymphocytes # (Auto) 2.8, Monocytes # (Auto) 1.5H, Eosinophils # (Auto) 0.2, Basophils # (Auto) 0.1, Sodium Level 132L, Potassium Level 4.7, Chloride Level 102, Carbon Dioxide Level 21, Anion Gap 9, Blood Urea Nitrogen 7, Creatinine 0.52L, Estimat Glomerular Filtration Rate > 60, BUN/Creatinine Ratio 13, Glucose Level 72, Calcium Level 8.1L, Corrected Calcium 9.0, Total Bilirubin 0.4, Aspartate Amino Transf (AST/SGOT) 13, Alanine Aminotransferase (ALT/SGPT) 9, Alkaline Phosphatase 57, Total Protein 5.1L, Albumin 2.9L Assessment/Plan Assessment/Plan Assessment/Plan Incarcerated Right Femoral Hernia s/p laparoscopic GUANAKO hernia repair Chronic Pain Postoperative ileus Pain control Diet as tolerates Encouraged to increase activity Continue IS Clinical Quality Measures DVT/VTE Risk/Contraindication: Risk Factor Score Per Nursin RFS Level Per Nursing on Admit: 3=High BROCK MARCUM DO 06/30/19 1344: Subjective Time Seen by a Provider: 13:34 Subjective/Events-last exam Pt seen and examined, daughter states she has had small BM's Objective Exam Gastrointestinal: distended (minimal, improved since yesterday) Assessment/Plan Assessment/Plan Assessment/Plan Will D/C IV and D/C home Supervisory-Addendum Brief Verification & Attestation Participated in pt care: history, MDM, physical Personally performed: exam, history, MDM Care discussed with: Medical Student Procedures: n/a Verification and Attestation of Medical Student E/M Service A medical student performed and documented this service in my presence. I reviewed and verified all information documented by the medical student and made modifications to such information, when appropriate. I personally performed the physical exam and medical decision making. Brock Marcum, Jun 30, 2019,13:43 LUCA MAZA,MED STUDENT Jun 30, 2019 08:06 BROCK MARCUM DO Jun 30, 2019 13:44
[2019-06-30] MEDS ORDERED: BISACODYL 10 MG SUPP (DULCOLAX) PR NR (08:15)
[2019-06-30] MEDS: amLODIPine 10 MG (NORVASC) TAB PO SCH (09:04)
[2019-06-30] MEDS: PANTOPRAZOLE 40 MG (PROTONIX) VIAL IV SCH (09:04)
[2019-06-30] MEDS: TIMOLOL MALEATE 0.5% 5 ML (TIMOPTIC) BTL OU SCH (09:27)
[2019-06-30] MEDS: DOCUSATE CALCIUM 240 MG (SURFAK) CAP PO SCH (09:27)
[2019-06-30] MEDS: BETAMETHASONE DIPRO (AUGMENTED) 0.05% CREAM 15 GM TP SCH (09:36)
--- NOTE | 2019-06-30 11:34 | Physical Therapy Progress Note ---
Therapy Progress Note Patient declined PT at this time due to toilet use. PT will attempt in p.m. Patient has been issued her own bilateral platform FWW and is using it in hospital. 1 ref ([id number]) EL VELÁZQUEZ PT Jun 30, 2019 11:34
[2019-06-30 12:00] VITALS: BP 159/74
[2019-06-30] MEDS ORDERED: HYDROcodone/APAP 10 MG/325 MG (LORTAB) TAB PO PRN (12:00)
--- NOTE | 2019-06-30 13:20 | Physical Therapy Progress Note ---
Therapy Progress Note No treatment per RN due to patient request to rest. PT will attempt in EL Ye PT Jun 30, 2019 13:20
--- NOTE | 2019-06-30 13:25 | Progress Note ---
Subjective Subjective/Events-last exam Patient frustrated because she has not yet had a BM. Pain is improved. Passing Flatus. Tolerating CLD Review of Systems Pulmonary: No Dyspnea, No Cough Cardiovascular: No: Chest Pain Gastrointestinal: Abdominal Pain; No: Nausea, Vomiting Objective Exam Last Set of Vital Signs Vital Signs Date Time Temp Pulse Resp B/P (MAP) Pulse Ox O2 Delivery O2 Flow Rate FiO2 06/30/19 07:25 37.3 93 18 174/85 (114) 96 Room Air 06/25/19 21:00 4 Capillary Refill : Less Than 3 Seconds I&O Intake and Output 06/30/19 00:00 Intake Total 910 ml Output Total 3625 ml Balance -2715 ml Intake Oral 910 ml Output Urine Total 3625 ml General: Alert, Oriented X3, No Acute Distress Lungs: Clear to Auscultation, Normal Air Movement Heart: Regular Rate, No Murmurs Abdomen: Soft, No Masses, Other (Mild ttp, ) Extremities: No Tenderness/Swelling Results/Procedures Lab Laboratory Tests 06/30/19 06:00: White Blood Count 11.9H, Red Blood Count 3.90L, Hemoglobin 11.5, Hematocrit 34L, Mean Corpuscular Volume 87, Mean Corpuscular Hemoglobin 29, Mean Corpuscular Hemoglobin Concent 34, Red Cell Distribution Width 14.2, Platelet Count 370, Mean Platelet Volume 9.2, Neutrophils (%) (Auto) 61, Lymphocytes (%) (Auto) 24, Monocytes (%) (Auto) 13H, Eosinophils (%) (Auto) 2, Basophils (%) (Auto) 1, Neutrophils # (Auto) 7.2, Lymphocytes # (Auto) 2.8, Monocytes # (Auto) 1.5H, Eosinophils # (Auto) 0.2, Basophils # (Auto) 0.1, Sodium Level 132L, Potassium Level 4.7, Chloride Level 102, Carbon Dioxide Level 21, Anion Gap 9, Blood Urea Nitrogen 7, Creatinine 0.52L, Estimat Glomerular Filtration Rate > 60, BUN/Creatinine Ratio 13, Glucose Level 72, Calcium Level 8.1L, Corrected Calcium 9.0, Total Bilirubin 0.4, Aspartate Amino Transf (AST/SGOT) 13, Alanine Aminotransferase (ALT/SGPT) 9, Alkaline Phosphatase 57, Total Protein 5.1L, Albumin 2.9L Assessment/Plan Assessment/Plan (1) Incarcerated right inguinal hernia Status: Acute Assessment & Plan: 06/30: Gen Surg managing, CLD, waiting on BM, encourage a mbulation (2) Hypertension Status: Chronic Assessment & Plan: 06/30: Norvasc, continues to have elevated BPs, extensive allergy list to blood pressure medications Qualifiers: Qualified Codes: I10 - Essential (primary) hypertension (3) Discharge planning issues Clinical Quality Measures DVT/VTE Risk/Contraindication: Risk Factor Score Per Nursin RFS Level Per Nursing on Admit: 3=High MARTI MACKAY MD Jun 30, 2019 13:25
--- NOTE | 2019-06-30 13:47 | Discharge Inst-Surgical ---
Discharge Inst-Surgical Depart Medication/Instructions New, Converted or Re-Newed RX: Other (no rx needed, resume home meds) Patient Instructions Follow up Appt: Make appointment for 1 week. [phone] Instructions: No lifting greater than 20 pounds. No strenuous activity. May shower in 24 hours, no tub bath or soaking. Use incentive spirometer at home as directed. No Smoking Skin/Wound Care: May remove bandages in am. You need to leave the Dermabond on incision it will fall off on it's own. Symptoms to Report: Appetite Changes, Extremity Discoloration, Numbness/Tingling, Swelling Increased, Bleeding Excessive, Eyesight Changes, Pain Increased, Urine Color Change, Constipation(Persistent), Fever over 101 degree F, Pain/Pressure in [address], Urinating Difficulty, Cough Up/Vomit Blood, Heart Beat Irreg/Pounding, Pain/Pressure in jaw, Cramps in feet or legs, Lightheadedness, Pain/Pressure in shoulder, Diarrhea(Persistent), Memory Changes Suddenly, Questions/Concerns, Weight gain consecutive days, Dizziness/Fainting, Nausea/Vomiting, Shortness of Breath, Weight gain over 2 pounds If questions or concerns contact your physician Or seek help at emergency department. Activity Activity as Tolerated: Yes Walking Assistive Device: Walker Driving Instructions: No Driving/Refer to Dr. Mcmahan Discharge Diet: No Restrictions (drink lots of fluids) If Any Problems/Questions/Issu: Contact Your Physician, Go to Emergency Room Skin/Wound Care Infection Signs and Symptoms: Increased Redness, Foul Odor of Wound, Increased Drainage, Skin Itchy or Has a Rash, Increased Swelling, Temperature Above 101 F Bathing Instructions: Shower Stitches/[place]/Dermabond Dis: MIKE Cohn DO Jun 30, 2019 13:47
--- NOTE | 2019-06-30 14:57 | NUR ---
CM/SS patient is discharging this day. The patient's family member in the room asked about Fin. Assistance. Attempted to call to have Fin. Services come and speak to them, there was no answer at either line. Printed an application for Financial Assistance and provided it to the family.
[2019-06-30 15:45] VITALS: BP 159/74
--- NOTE | 2019-06-30 15:45 | NUR ---
LILIYA TATUM demonstrates understanding of discharge instructions and accurately returns instructions upon questioning. Copy of Post-Discharge Instructions given to PT AND DAUGHTER. LILIYA TATUM is able to manage continuing needs after discharge WITH ASSISTANCE OF DAUGHTER. Patients belongings returned to PT. Patient discharged from [facility] on 06/30/19 at 1545. LILIYA TATUM left floor via W/C, accompanied by STAFF AND DAUGHTER PER AUTO.
== END 2019-06-30 15:45 | disposition home or self-care (01) | DRG 351 ==
LOC: EDUNIT# 14:45 → ER 14:46 → 4TH 17:25 → UNDOADMIN 17:25 → SDC 17:57 → 4TH 20:28
PROVIDERS: ADMIT Internal Medicine; ATTEND Internal Medicine
PROC: 0YU54JZ Supplement Right Inguinal Region with Synthetic Substitute, Percutaneous Endoscopic Approach (ICD-10-PCS; 2019-06-25)
PROC: 0YU74JZ Supplement Right Femoral Region with Synthetic Substitute, Percutaneous Endoscopic Approach (ICD-10-PCS; principal; 2019-06-25 19:01)
DX: K41.30 Unilateral femoral hernia, with obstruction, without gangrene, not specified as recurrent (principal); K40.30 Unilateral inguinal hernia, with obstruction, without gangrene, not specified as recurrent; E87.1 Hypo-osmolality and hyponatremia; D64.9 Anemia, unspecified; F17.210 Nicotine dependence, cigarettes, uncomplicated; K21.9 Gastro-esophageal reflux disease without esophagitis; I10 Essential (primary) hypertension; G89.29 Other chronic pain; F41.9 Anxiety disorder, unspecified; F32.9 Major depressive disorder, single episode, unspecified; E89.0 Postprocedural hypothyroidism; H91.13 Presbycusis, bilateral; Z86.69 Personal history of other diseases of the nervous system and sense organs; Z86.19 Personal history of other infectious and parasitic diseases; Z85.828 Personal history of other malignant neoplasm of skin; Z23 Encounter for immunization
CPT/HCPCS: 36415; 51702; 74177; 80048; 80053; 80306; 81000; 83605; 83690; 83735; 84484; 85025; 85027; 85610; 93005; 94664; 96374; 96375

== ENCOUNTER → 2019-12-04 | Outpatient (CLI) | payer MEDICARE ==
[~2019-12-04] MED LIST changes: +ACHYD1T PO; +BETA15CR14 TP; +BIMA2.5D4 OU; +BISA5TAB8 PO; +BRIM5DRO OU; +CHOL500049 PO; +CLOR7.5T3 PO; +DICL100G18 TP; +DOCU-143 PO; +DOCU250C11 PO; +ERGO50006 PO; +FELO10TA41 PO; +FENT1PAT10 PO; +LEVO100T7 PO; +LORA10TA7 PO; +ONDA4TAB11 PO; +POLY17PO6 PO; +POTA10TA36 PO; +PRAV40TA2 PO; +PROP10DR4 OU; +RANI150T11 PO; +SENN-109 PO; +SENN-141 PO
== END ==
LOC: WOUNDCARE 13:57
PROVIDERS: ATTEND Surgery
DX: L97.423 Non-pressure chronic ulcer of left heel and midfoot with necrosis of muscle (principal); I70.244 Atherosclerosis of native arteries of left leg with ulceration of heel and midfoot; L89.613 Pressure ulcer of right heel, stage 3; L89.623 Pressure ulcer of left heel, stage 3; L89.153 Pressure ulcer of sacral region, stage 3; E44.0 Moderate protein-calorie malnutrition; R54 Age-related physical debility
CPT/HCPCS: 99215

== ENCOUNTER → 2019-12-04 | Outpatient (CLI) | payer MEDICARE | LOC: LAB 15:54 | PROVIDERS: ATTEND Surgery | DX: L97.423 Non-pressure chronic ulcer of left heel and midfoot with necrosis of muscle (principal); I70.244 Atherosclerosis of native arteries of left leg with ulceration of heel and midfoot; L89.613 Pressure ulcer of right heel, stage 3; L89.623 Pressure ulcer of left heel, stage 3; L89.153 Pressure ulcer of sacral region, stage 3; E44.0 Moderate protein-calorie malnutrition; R54 Age-related physical debility | CPT/HCPCS: 36415; 84134 ==

== ENCOUNTER → 2019-12-11 | Outpatient (CLI) | payer MEDICARE ==
--- NOTE | 2019-12-11 16:12 | Diagnostic Imaging Report ---
INDICATION: Ulcer on left heel and midfoot. EXAMINATION: AP, oblique and lateral views of the left foot were obtained. FINDINGS: No fracture or acute bony abnormality is seen. Joint spaces are unremarkable. There is no overt destructive bony lesion. There are some degenerative findings in the 1st MTP joint. IMPRESSION: No acute fracture or dislocation. No overt destructive bony lesion, MRI would be more sensitive if clinically warranted. There is mild degenerative change of the 1st MTP joint. Dictated by: Dictated on workstation # [id number]
== END ==
LOC: RAD 14:37
PROVIDERS: ATTEND Surgery
DX: L97.423 Non-pressure chronic ulcer of left heel and midfoot with necrosis of muscle (principal); L89.613 Pressure ulcer of right heel, stage 3; L89.623 Pressure ulcer of left heel, stage 3; R54 Age-related physical debility
CPT/HCPCS: 73630

== ENCOUNTER → 2019-12-11 | Outpatient (CLI) | payer MEDICARE | LOC: WOUNDCARE 13:39 | PROVIDERS: ATTEND Surgery | DX: L97.423 Non-pressure chronic ulcer of left heel and midfoot with necrosis of muscle (principal); L97.412 Non-pressure chronic ulcer of right heel and midfoot with fat layer exposed; R54 Age-related physical debility; G60.8 Other hereditary and idiopathic neuropathies | CPT/HCPCS: 11042; 11043 ==

== ENCOUNTER → 2019-12-18 | Outpatient (CLI) | payer MEDICARE | LOC: WOUNDCARE 14:05 | PROVIDERS: ATTEND Surgery | DX: L97.423 Non-pressure chronic ulcer of left heel and midfoot with necrosis of muscle (principal); R54 Age-related physical debility; G60.8 Other hereditary and idiopathic neuropathies | CPT/HCPCS: 11042; 11043 ==

== ENCOUNTER → 2020-01-01 | Outpatient (CLI) | payer MEDICARE ==
[~2020-01-01] MED LIST changes: -SENN-141 PO; +SENN-234 PO
== END ==
LOC: WOUNDCARE 13:44
PROVIDERS: ATTEND Surgery
DX: L97.423 Non-pressure chronic ulcer of left heel and midfoot with necrosis of muscle (principal); R54 Age-related physical debility; G60.8 Other hereditary and idiopathic neuropathies; L97.422 Non-pressure chronic ulcer of left heel and midfoot with fat layer exposed
CPT/HCPCS: 11043

== ENCOUNTER → 2020-01-15 | Outpatient (CLI) | payer MEDICARE | LOC: WOUNDCARE 13:46 | PROVIDERS: ATTEND Surgery | DX: I96 Gangrene, not elsewhere classified (principal); L97.423 Non-pressure chronic ulcer of left heel and midfoot with necrosis of muscle; G60.8 Other hereditary and idiopathic neuropathies; R54 Age-related physical debility | CPT/HCPCS: 11042 ==

== ENCOUNTER → 2020-01-29 | Outpatient (CLI) | payer MEDICARE | LOC: WOUNDCARE 13:55 | PROVIDERS: ATTEND Surgery | DX: L97.423 Non-pressure chronic ulcer of left heel and midfoot with necrosis of muscle (principal); G60.8 Other hereditary and idiopathic neuropathies; R54 Age-related physical debility; M19.91 Primary osteoarthritis, unspecified site; Z87.891 Personal history of nicotine dependence; Z85.828 Personal history of other malignant neoplasm of skin | CPT/HCPCS: 11042 ==

== ENCOUNTER → 2020-02-12 | Outpatient (CLI) | payer MEDICARE | LOC: WOUNDCARE 13:49 | PROVIDERS: ATTEND Surgery | DX: L97.422 Non-pressure chronic ulcer of left heel and midfoot with fat layer exposed (principal); G60.8 Other hereditary and idiopathic neuropathies; R54 Age-related physical debility; M19.91 Primary osteoarthritis, unspecified site; Z87.891 Personal history of nicotine dependence; Z85.828 Personal history of other malignant neoplasm of skin | CPT/HCPCS: 11042 ==

== ENCOUNTER 2020-02-13 15:20 | Emergency (ER) | payer MEDICARE ==
[~2020-02-13] VITALS: Ht 152.4 cm; Wt 52.1 kg
--- OUTSIDE RECORDS SUMMARY | 2020-02-13 16:25 | XMS REPORT ---
Author Author Cami Mtz Doctor Organization [facility] [facility] Address Unknown Phone Unavailable Care Team Providers Care Strap Buckler Name Role Phone Migration, Doctor Unavailable Unavailable PROBLEMS Type Condition ICD9-CM Code XQG90-IQ Code Onset Dates Condition S tatus SNOMED Code Problem Hypertension I10 Active 7628644 3 Problem Generalized anxiety disorder F41.1 A ctive 75990166 Problem Depressive disorder, not elsewhere classified F32. 9 Active 83859022 Problem Basal cell carcinoma (BCC) of skin of right ear C4 4.212 Active 839617792 Problem Back pain M54.9 Active 513164352 Problem Skin ulcer of left foot with fat layer exposed L97 .522 Active 50126382 Problem Arthritis M19.90 Active 1670536 Problem COPD (chronic obstructive pulmonary disease) J44.9 Active 99960227 Problem Vitamin D deficiency E55.9 Active 63924066 Problem Lumbar radiculopathy M54.16 Active 538935299 Problem Venous insufficiency I87.2 Active 78223448 ALLERGIES No Information ENCOUNTERS Encounter Location Date Diagnosis [facility] [address] [facility] [id number] [address] [place] [phone] Feb, [place] [address] [place] [id number] [address] [place] [phone] January, Lumbar radiculopathy M54.16 [facility] [address] [facility] [id number] [address] [place] [phone] January, Radiculopathy, lumbar region M54.16 and Lumbar radiculopathy M54.16 [facility] [address] [facility] [id number] [address] [place] [phone] Dec, [id number] [place] [phone] Dec, [facility] [address] [facility] [id number] [address] [place] [phone] 14 Dec, 2019 Radiculopathy, lumbar region M54.[id number] [place] [phone] 14 Dec, 2019 Radiculopathy, lumbar region M54.16 [facility] [address] [id number] [address] [place] [phone] 09 Dec, 2019 Lumbar radiculopathy M54.16 [facility] [address] [id number] [address] [place] [phone] 02 Dec, 2019 [facility] [address] [id number] [address] [place] [phone] 20 Nov, 2019 [facility] [address] [id number] [address] [place] [phone] 18 Nov, 2019 [facility] [address] [id number] [address] [place] [phone] 17 Nov, 2019 Weight loss R63.4 ; Skin ulc er of left foot with fat layer exposed L97.522 ; Basal cell carcinoma (BCC) of skin of right ear C44.212 ; Hypertension I10 and Lumbar radiculopathy M54.16 [facility] [address] [id number] [address] [place] [phone] 11 Nov, 2019 Back pain M54.9 and Radiculo peg, lumbar region M54.16 [facility] [address] [id number] [address] [place] [phone] 20 Oct, 2019 Radiculopathy, lumbar region M54.16 [facility] [address] [id number] [address] [place] [phone] 19 Oct, 2019 [facility] [address] [id number] [address] [place] [phone] 11 Oct, 2019 Back pain M54.9 [facility] [address] [id number] [address] [place] [phone] 10 Oct, 2019 [facility] [address] [id number] [address] [place] [phone] 06 Oct, 2019 Skin sore L98.9 [facility] [address] [id number] [address] [place] [phone] 24 Sep, 2019 Radiculopathy, lumbar region M54.16 [facility] [address] [id number] [address] [place] [phone] 15 Sep, 2019 Back pain M54.9 [facility] [address] [id number] [address] [place] [phone] 14 Sep, 2019 Generalized anxiety disorder F41.1 [facility] [address] [id number] [address] [place] [phone] Aug, Radiculopathy, lumbar region M54.16 [facility] [address] [id number] [address] [place] [phone] Aug, Back pain M54.9 [facility] [address] [id number] [address] [place] [phone] Aug, Lumbar radiculopathy M54.16 ; Generalized anxiety disorder F41.1 and Drug-induced constipation K59.03 [facility] [address] [id number] [address] [place] [phone] Jul, Radiculopathy, lumbar region M54.16 [facility] [address] [id number] [address] [place] [phone] Jul, [facility] [address] [id number] [address] [place] [phone] Jul, [facility] [address] [id number] [address] [place] [phone] Jul, Back pain M54.9 [facility] [address] [id number] [address] [place] [phone] Jul, Radiculopathy, lumbar region M54.16 [facility] [address] [id number] [address] [place] [phone] Jul, Radiculopathy, lumbar region M54.16 [facility] [address] [id number] [address] [place] [phone] Jun, Back pain M54.9 [facility] [address] [id number] [address] [place] [id number] Jun, [facility] [address] [id number] [address] [place] [phone] Jun, Radiculopathy, lumbar region M54.16 [facility] [address] [id number] [address] [place] [phone] Jun, [facility] [address] [id number] [address] [place] [phone] May, Back pain M54.9 [facility] [address] [id number] [address] [place] [phone] May, Cellulitis of other specifie d site L03.818 ; Dermatitis L30.9 and Lumbar radiculopathy M54.16 [facility] [address] [id number] [address] [place] [phone] May, [facility] [address] [id number] [address] [place] [phone] May, Back pain M54.9 [facility] [address] [id number] [address] [place] [phone] 05 May, 2019 [facility] [address] [id number] [address] [place] [phone] May, Back pain M54.9 [facility] [address] [id number] [address] [place] [phone] Apr, [facility] [address] [id number] [address] [place] [phone] Apr, Back pain M54.9 [facility] [address] [id number] [address] [place] [phone] Apr, Hyponatremia E87.1 [facility] [address] [id number] [address] [place] [phone] Apr, Hyponatremia E87.1 [facility] [address] [id number] [address] [place] [phone] Mar, Arthritis M19.90 ; Impacted cerumen of right ear H61.21 and Hypertension I10 [facility] [address] [id number] [place] [id number] Mar, [facility] [address] [id number] [address] [place] [phone] Mar, Back pain M54.9 [facility] [address] [id number] [address] [place] [phone] Feb, Back pain M54.9 [facility] [address] [id number] [address] [place] [phone] Feb, [facility] [address] [id number] [address] [place] [phone] Feb, Dermatitis L30.9 [facility] [address] [facility] [id number] [address] [place] [phone] January, Dermatitis L30.9 [facility] [address] [id number] [address] [place] [phone] January, [facility] [address] [facility] [id number] [address] [place] [phone] January, Back pain M54.9 [facility] [address] [id number] [address] [place] [phone] Dec, [facility] [address] [facility] [id number] [address] [place] [phone] Dec, Back pain M54.9 [facility] [address] [id number] [address] [place] [phone] Dec, Lumbar radiculopathy M54.16 ; Arthritis M19.90 and Dyshydrosis L30.1 [facility] [address] [id number] [address] [place] [phone] Nov, Back pain M54.9 [facility] [address] [id number] [address] [place] [phone] Nov, [facility] [address] [id number] [address] [place] [phone] Oct, [facility] [address] [id number] [address] [place] [phone] Oct, Back pain M54.9 [facility] [address] [id number] [address] [place] [phone] Oct, [facility] [address] [id number] [address] [place] [phone] Oct, [facility] [address] [id number] [address] [place] [phone] Sep, Back pain M54.9 [facility] [address] [id number] [address] [place] [phone] Sep, [facility] [address] [id number] [address] [place] [phone] Aug, Back pain M54.9 [facility] [address] [id number] [address] [place] [phone] Aug, Encounter for immunization Z 23 ; Arthritis M19.90 and Generalized anxiety disorder F41.1 [facility] [address] [id number] [address] [place] [phone] Aug, [facility] [address] [id number] [address] [place] [phone] Aug, [facility] [address] [id number] [address] [place] [phone] Jul, Back pain M54.9 [facility] [address] [id number] [address] [place] [phone] Jul, [facility] [address] [id number] [address] [place] [phone] Jul, [facility] [address] [id number] [address] [place] [phone] Jun, Back pain M54.9 [facility] [address] [id number] [address] [place] [phone] Jun, [facility] [address] [id number] [address] [place] [phone] Jun, Back pain M54.9 [facility] [address] [id number] [address] [place] [phone] May, Lumbar radiculopathy M54.16 ; Hypertension I10 and Generalized anxiety disorder F41.1 [facility] [address] [id number] [address] [place] [phone] May, Back pain M54.9 [facility] [address] [id number] [address] [place] [phone] Apr, [facility] [address] [id number] [address] [place] [phone] Apr, [facility] [address] [id number] [address] [place] [phone] Apr, Back pain M54.9 [facility] [address] [id number] [address] [place] [phone] Mar, Back pain M54.9 [facility] [address] [id number] [address] [place] [phone] Feb, [facility] [address] [id number] [address] [place] [phone] Feb, [facility] [address] [id number] [address] [place] [phone] Feb, [facility] [address] [id number] [address] [place] [phone] 14 Feb, 2018 Back pain M54.9 [facility] [address] [id number] [address] [place] [id number] Feb, Back pain M54.9 ; Hypertensi on I10 ; Generalized anxiety disorder F41.1 and Venous insufficiency I87.2 [facility] [address] [id number] [address] [place] [phone] January, [facility] [address] [id number] [address] [place] [phone] January, Back pain M54.9 [facility] [address] [id number] [address] [place] [phone] Dec, [facility] [address] [id number] [address] [place] [phone] Dec, Back pain M54.9 [facility] [address] [id number] [address] [place] [phone] Nov, Back pain M54.9 [facility] [address] [id number] [address] [place] [phone] Nov, [facility] [address] [facility] [id number] [address] [place] [phone] 06 Nov, 2017 Lumbar radiculopathy M54.16 ; Hypertension I10 ; Arthritis M19.90 and Back pain M54.9 [facility] [address] [id number] [address] [place] [phone] Oct, Back pain M54.9 [facility] [address] [id number] [address] [place] [phone] Oct, [facility] [address] [facility] [id number] [address] [place] [phone] Sep, Back pain M54.9 [facility] [address] [id number] [address] [place] [phone] Sep, [facility] [address] [id number] [address] [place] [address] Aug, Back pain M54.9 [facility] [address] [id number] [address] [place] [phone] 30 Jul, 2017 Back pain M54.9 [facility] [address] [id number] [address] [place] [phone] 09 Jul, 2017 Encounter for immunization Z 23 ; Back pain M54.9 ; Hypertension I10 and Lumbar radiculopathy M54.16 [facility] [address] [id number] [address] [place] [phone] Jul, Back pain M54.9 [facility] [address] [id number] [address] [place] [phone] 18 Jun, 2017 Vitamin D deficiency E55.9 [facility] [address] [id number] [address] [place] [phone] Jun, Back pain M54.9 [facility] [address] [id number] [address] [place] [phone] May, [facility] [address] [id number] [address] [place] [phone] 08 May, 2017 [facility] [address] [id number] [address] [place] [phone] 08 May, 2017 [facility] [address] [id number] [address] [place] [phone] May, Back pain M54.9 [facility] [address] [id number] [address] [place] [phone] 15 Apr, 2017 Back pain M54.9 ; Hypertensi on I10 ; Arthritis M19.90 and Generalized anxiety disorder F41.1 [facility] [address] [id number] [address] [place] [phone] 08 Apr, 2017 Back pain M54.9 [facility] [address] [id number] [address] [place] [phone] 12 Mar, 2017 Back pain M54.9 [facility] [address] [id number] [address] [place] [id number] 10 Mar, 2017 Vitamin D deficiency E55.9 [facility] [address] [id number] [address] [place] [phone] 15 Feb, 2017 Vitamin D deficiency E55.9 [facility] [address] [id number] [address] [place] [phone] 14 Feb, 2017 Vitamin D deficiency E55.9 [facility] [address] [id number] [address] [place] [phone] 13 Feb, 2017 Back pain M54.9 [facility] [address] [facility] [id number] [address] [place] [phone] 19 Jan, 2017 Back pain M54.9 [facility] [address] [facility] [id number] [address] [place] [phone] January, Arthritis M19.90 [facility] [address] [id number] [address] [place] [phone] January, Vitamin D deficiency E55.9 a nd Arthritis M19.90 [facility] [address] [facility] [id number] [address] [place] [phone] Dec, Medicare annual wellness vis it, initial Z00.00 and Encounter for immunization Z23 [facility] [address] [facility] [id number] [address] [place] [phone] 18 Dec, 2016 Back pain M54.9 [facility] [address] [id number] [address] [place] [phone] Nov, Back pain M54.9 [facility] [address] [facility] [id number] [address] [place] [phone] 24 Oct, 2016 Back pain M54.9 [facility] [address] [facility] [id number] [address] [place] [phone] 14 Oct, 2016 COPD (chronic obstructive pu lmonary disease) J44.9 [facility] [address] [id number] [address] [place] [phone] Oct, [facility] [address] [id number] [address] [place] [phone] 02 Oct, 2016 Hypertension I10 ; Back pain M54.9 and Encounter for immunization Z23 [facility] [address] [id number] [address] [place] [phone] Sep, [facility] [address] [id number] [address] [place] [phone] Sep, Back pain M54.9 [facility] [address] [id number] [address] [place] [phone] Sep, Back pain M54.9 [facility] [address] [id number] [address] [place] [phone] Aug, [facility] [address] [id number] [address] [place] [phone] Aug, Back pain M54.9 [facility] [address] [id number] [address] [place] [phone] Aug, [facility] [address] [id number] [address] [place] [phone] Aug, [facility] [address] [id number] [address] [place] [phone] Aug, Back pain M54.9 [facility] [address] [id number] [address] [place] [id number] Jul, [facility] [address] [id number] [address] [place] [id number] Jul, Back pain M54.9 [facility] [address] [id number] [address] [place] [id number] Jun, Back pain M54.9 ; Hypertensi on I10 ; Generalized anxiety disorder F41.1 and Encounter for immunization Z23 [facility] [address] [id number] [address] [place] [address], [place] [phone] Jun, [facility] [address] [id number] [address] [place] [address], [place] [phone] May, [facility] [address] [id number] [address] [place] [address], [place] [id number] Apr, [facility] [address] [id number] [address] [place] [address], [place] [id number] Apr, [facility] [address] [id number] [address] [place] [address], [place] [phone] Mar, [facility] [address] [id number] [address] [place] [address], [place] [address] Mar, [facility] [address] [id number] [address] [place] [address], [place] [address] Mar, [facility] [address] [id number] [address] [place] [address], [place] [address] Feb, Back pain M54.9 and Hyperten madelyn I10 [facility] [address] [id number] [address] [place] [phone] Feb, Back pain M54.9 [facility] [address] [id number] [address] [place] [address], [place] [address] Dec, COPD (chronic obstructive pu lmonary disease) J44.9 [facility] [address] [id number] [address] [place] [phone] Dec, [facility] [address] [id number] [address] [place] [id number] 18 Dec, 2015 Back pain M54.9 [facility] [address] [id number] [address] [place] [id number] 24 Nov, 2015 Back pain M54.9 [facility] [address] [id number] [address] [place] [id number] 14 Nov, 2015 COPD (chronic obstructive pu lmonary disease) J44.9 [facility] [address] [id number] [address] [place] [phone] Nov, Hypertension I10 and Back pa in M54.9 [facility] [address] [id number] [address] [place] [id number] Oct, Hypertension I10 and Back pa in M54.9 [facility] [address] [id number] [address] [place] [phone] Oct, Back pain M54.9 [facility] [address] [id number] [address] [place] [phone] Sep, Back pain M54.9 [facility] [address] [id number] [address] [place] [phone] Sep, [facility] [address] [id number] [address] [place] [phone] Sep, [facility] [address] [id number] [address] [place] [phone] Sep, [facility] [address] [id number] [address] [place] [id number] Sep, [facility] [address] [id number] [address] [place] [id number] Aug, [facility] [address] [id number] [address] [place] [address] Aug, [facility] [address] [id number] [address] [place] [id number] Aug, [facility] [address] [id number] [address] [place] [address] Aug, [facility] [address] [id number] [address] [place] [address] Aug, [facility] [address] [id number] [address] [place] [address] Jul, [facility] [address] [id number] [address] [place] [address] Jul, Back pain M54.9 ; Arthritis M19.90 ; Hypertension I10 and Encounter for immunization Z23 [facility] [address] [id number] [address] [place] [id number] Jul, Generalized anxiety disorder F41.1 and Depressive disorder, not elsewhere classified F32.9 [facility] [address] [id number] [address] [place] [address] Jul, [facility] [address] [id number] [address] [place] [address] Jul, [facility] [address] [id number] [address] [place] [address] Jul, [facility] [address] [facility] [id number] [address] [place] [phone] Jun, [facility] [address] [id number] [address] [place] [id number] Jun, [facility] [address] [facility] [id number] [address] [place] [id number] May, [facility] [address] [id number] [address] [place] [id number] May, [facility] [address] [facility] [id number] [address] [place] [phone] May, [facility] [address] [id number] [address] [place] [phone] May, [facility] [address] [facility] [id number] [address] [place] [address] 10 May, 2015 Benign essential hypertensio n 401.1 ; Anxiety state, unspecified 300.00 ; Back pain 724.5 and Arthritis 716.90 [facility] [address] [id number] [address] [place] [address] 08 May, 2015 [facility] [address] [id number] [address] [place] [id number] Apr, [facility] [address] [id number] [address] [place] [id number] Apr, [facility] [address] [id number] [address] [place] [id number] Apr, [facility] [address] [id number] [address] [place] [id number] Mar, [facility] [address] [id number] [address] [place] [address] Mar, [facility] [address] [id number] [address] [place] [address] Mar, [facility] [address] [id number] [address] [place] [id number] Feb, High risk medication use V58 .69 [facility] [address] [id number] [address] [place] [id number] Feb, Benign essential hypertensio n 401.1 ; Anxiety state, unspecified 300.00 and Chronic pain 338.29 [facility] [address] [id number] [address] [place] [id number] Feb, [facility] [address] [id number] [address] [place] [id number] January, [facility] [address] [id number] [address] [place] [address] January, [facility] [address] [id number] [address] [place] [id number] January, [facility] [address] [id number] [address] [place] [id number] January, [facility] [address] [id number] [address] [place] [id number] Dec, [facility] [address] [id number] [address] [place] [address] Dec, [facility] [address] [id number] [address] [place] [address], [place] [address] Nov, [facility] [address] [id number] [address] [place] [address], [place] [address] Nov, [facility] [address] [id number] [address] [place] [address], [place] [address] Nov, [facility] [address] [id number] [address] [place] [address], [place] [address] Nov, [facility] [address] [id number] [address] [place] [address], [place] [address] Oct, [facility] [address] [id number] [address] [place] [address], [place] [address] Oct, [facility] [address] [id number] [address] [place] [address], [place] [address] Oct, [facility] [address] [id number] [address] [place] [address], [place] [address] Oct, [facility] [address] [id number] [address] [place] [address], [place] [address] Oct, [facility] [address] [id number] [address] [place] [address], [place] [address] Sep, [facility] [address] [id number] [address] [place] [address], [place] [address] Sep, [facility] [address] [id number] [address] [place] [address], [place] [address] Sep, [facility] [address] [id number] [address] [place] [address], [place] [address] Sep, [facility] [address] [id number] [address] [place] [address], [place] [address] Aug, [facility] [address] [id number] [address] [place] [address], [place] [address] Aug, [facility] [address] [id number] [address] [place] [address], [place] [address] Aug, [facility] [address] [id number] [address] [place] [address], [place] [address] Aug, [facility] [address] [id number] [address] [place] [address], [place] [address] Aug, [facility] [address] [id number] [address] [place] [address], [place] [address] Aug, [facility] [address] [id number] [address] [place] [address], [place] [address] Jul, [facility] [address] [id number] [address] [place] [address], [place] [address] Jul, [facility] [address] [id number] [address] [place] [address], [place] [address] Jun, [facility] [address] [id number] [address] [place] [address], [place] [address] Jun, [facility] [address] [id number] [address] [place] [address], [place] [address] Jun, [facility] [address] [id number] [address] [place] [address], [place] [address] Jun, [facility] [address] [id number] [address] [place] [address], [place] [address] May, [facility] [address] [id number] [address] [place] [address], [place] [address] May, [facility] [address] [id number] [address] [place] [id number] May, [facility] [address] [id number] [address] [place] [address], [place] [address] May, [facility] [address] [id number] [address] [place] [address], [place] [address] Apr, [facility] [address] [id number] [address] [place] [address], [place] [address] Apr, [facility] [address] [id number] [address] [place] [address], [place] [address] Apr, [facility] [address] [id number] [address] [place] [address], [place] [address] Apr, [facility] [address] [id number] [address] [place] [address], [place] [address] Apr, [facility] [address] [id number] [address] [place] [address], [place] [address] Apr, [facility] [address] [id number] [address] [place] [address], [place] [address] Mar, [facility] [address] [id number] [address] [place] [address], [place] [address] Mar, [facility] [address] [id number] [address] [place] [address], [place] [address] Mar, [facility] [address] [id number] [address] [place] [address], [place] [address] Mar, [facility] [address] [id number] [address] [place] [address], [place] [address] Feb, [facility] [address] [id number] [address] [place] [address], [place] [address] Feb, [facility] [address] [id number] [address] [place] [address], [place] [address] Feb, [facility] [address] [id number] [address] [place] [address], [place] [address] January, [facility] [address] [id number] [address] [place] [address], [place] [address] January, [facility] [address] [id number] [address] [place] [address], [place] [address] January, [facility] [address] [id number] [address] [place] [address], [place] [address] January, [facility] [address] [id number] [address] [place] [address], [place] [address] January, [facility] [address] [id number] [address] [place] [address], [place] [address] January, [facility] [address] [id number] [address] [place] [address], [place] [address] January, [facility] [address] [id number] [address] [place] [address], [place] [address] January, [facility] [address] [id number] [address] [place] [address], [place] [address] Dec, [facility] [address] [id number] [address] [place] [address], [place] [address] Dec, [facility] [address] [id number] [address] [place] [address], [place] [address] Dec, [facility] [address] [id number] [address] [place] [address], [place] [address] Dec, [facility] [address] [id number] [address] [place] [address], [place] [address] Dec, [facility] [address] [id number] [address] [place] [address], [place] [address] Dec, [facility] [address] [id number] [address] [place] [address], [place] [address] Dec, [facility] [address] [id number] [address] [place] [address], [place] [address] Nov, [facility] [address] [id number] [address] [place] [address], [place] [address] Nov, [facility] [address] [id number] [address] [place] [address], [place] [address] Nov, [facility] [address] [id number] [address] [place] [address], [place] [address] Nov, [facility] [address] [id number] [address] [place] [address], [place] [address] Nov, [facility] [address] [id number] [address] [place] [address], [place] [address] 18 Nov, 2013 [facility] [address] [id number] [address] [place] [address], [place] [address] 11 Nov, 2013 [facility] [address] [id number] [address] [place] [address], [place] [address] 11 Nov, 2013 [facility] [address] [id number] [address] [place] [address], [place] [address] 07 Nov, 2013 [facility] [address] [id number] [address] [place] [address], [place] [address] 07 Nov, 2013 [facility] [address] [id number] [address] [place] [address], [place] [address] 07 Nov, 2013 [facility] [address] [id number] [address] [place] [address], [place] [address] 07 Nov, 2013 [facility] [address] [id number] [address] [place] [address], [place] [address] 07 Oct, 2013 [facility] [address] [id number] [address] [place] [address], [place] [address] 07 Oct, 2013 [facility] [address] [id number] [address] [place] [address], [place] [address] Sep, [facility] [address] [id number] [address] [place] [address], [place] [address] Sep, [facility] [address] [id number] [address] [place] [address], [place] [address] Sep, [facility] [address] [id number] [address] [place] [address], [place] [address] Sep, [facility] [address] [id number] [address] [place] [address], [place] [address] Aug, [facility] [address] [id number] [address] [place] [address], [place] [address] Aug, [facility] [address] [id number] [address] [place] [address], [place] [address] 15 Jul, 2013 [facility] [address] [id number] [address] [place] [address], [place] [address] 15 Jul, 2013 [facility] [address] [id number] [address] [place] [address], [place] [address] 15 Jul, 2013 [facility] [address] [id number] [address] [place] [address], [place] [address] 15 Jul, 2013 [facility] [address] [id number] [address] [place] [address], [place] [address] 28 Jun, 2013 [facility] [address] [id number] [address] [place] [address], [place] [address] 28 Jun, 2013 [facility] [address] [id number] [address] [place] [address], [place] [address] 18 Jun, 2013 [facility] [address] [id number] [address] [place] [address], [place] [address] 18 Jun, 2013 [facility] [address] [id number] [address] [place] [address], [place] [address] 14 Jun, 2013 [facility] [address] [id number] [address] [place] [address], [place] [address] 14 Jun, 2013 [facility] [address] [id number] [address] [place] [address], [place] [address] 20 May, 2013 [facility] [address] [id number] [address] [place] [address], [place] [address] 18 May, 2013 [facility] [address] [id number] [address] [place] [address], [place] [address] 16 May, 2013 [facility] [address] [id number] [address] [place] [address], [place] [address] Apr, [facility] [address] [id number] [address] [place] [address], [place] [address] Apr, [facility] [address] [id number] [address] [place] [address], [place] [address] Apr, [facility] [address] [id number] [address] [place] [address], [place] [address] Mar, [facility] [address] [id number] [address] [place] [address], [place] [address] Mar, [facility] [address] [id number] [address] [place] [address], [place] [address] Feb, [facility] [address] [id number] [address] [place] [address], [place] [address] Feb, [facility] [address] [id number] [address] [place] [address], [place] [address] Feb, [facility] [address] [id number] [address] [place] [address], [place] [address] January, [facility] [address] [id number] [address] [place] [address], [place] [address] January, [facility] [address] [id number] [address] [place] [address], [place] [address] January, [facility] [address] [id number] [address] [place] [address], [place] [address] 15 Dec, 2012 [facility] [address] [id number] [address] [place] [address], [place] [address] Dec, [facility] [address] [id number] [address] [place] [address], [place] [address] 08 Dec, 2012 [facility] [address] [id number] [address] [place] [address], [place] [address] Nov, [facility] [address] [id number] [address] [place] [address], [place] [address] 14 Nov, 2012 [facility] [address] [id number] [address] [place] [address], [place] [address] 13 Nov, 2012 [facility] [address] [id number] [address] [place] [address], [place] [address] 18 Oct, 2012 [facility] [address] [id number] [address] [place] [address], [place] [address] 14 Oct, 2012 [facility] [address] [id number] [address] [place] [address], [place] [address] Sep, [facility] [address] [id number] [address] [place] [address], [place] [address] Sep, [facility] [address] [id number] [address] [place] [address], [place] [address] Sep, [facility] [address] [id number] [address] [place] [address], [place] [address] Aug, [facility] [address] [id number] [address] [place] [address], [place] [address] Aug, [facility] [address] [id number] [address] [place] [address], [place] [address] Aug, [facility] [address] [id number] [address] [place] [address], [place] [address] Aug, [facility] [address] [id number] [address] [place] [address], [place] [address] Aug, [facility] [address] [id number] [address] [place] [address], [place] [address] Jul, [facility] [address] [id number] [address] [place] [address], [place] [address] Jul, [facility] [address] [id number] [address] [place] [address], [place] [address] Jul, [facility] [address] [id number] [address] [place] [address], [place] [address] Jul, [facility] [address] [id number] [address] [place] [address], [place] [address] Jul, [facility] [address] [id number] [address] [place] [address], [place] [address] Jul, [facility] [address] [id number] [address] [place] [address], [place] [address] Jun, [facility] [address] [id number] [address] [place] [address], [place] [address] Jun, [facility] [address] [id number] [address] [place] [address], [place] [address] 29 Jun, 2012 [facility] [address] [id number] [address] [place] [address], [place] [address] 04 Jun, 2012 [facility] [address] [id number] [address] [place] [address], [place] [address] 13 May, 2012 [facility] [address] [id number] [address] [place] [address], [place] [address] 06 May, 2012 [facility] [address] [id number] [address] [place] [address], [place] [address] 16 Apr, 2012 [facility] [address] [id number] [address] [place] [address], [place] [address] 15 Apr, 2012 [facility] [address] [id number] [address] [place] [address], [place] [address] 14 Apr, 2012 [facility] [address] [id number] [address] [place] [address], [place] [address] 17 Mar, 2012 [facility] [address] [id number] [address] [place] [address], [place] [address] Mar, [facility] [address] [id number] [address] [place] [address], [place] [address] Feb, [facility] [address] [id number] [address] [place] [address], [place] [address] January, [facility] [address] [id number] [address] [place] [address], [place] [address] January, [facility] [address] [id number] [address] [place] [address], [place] [address] Dec, [facility] [address] [id number] [address] [place] [address], [place] [address] Dec, [facility] [address] [id number] [address] [place] [address], [place] [address] 05 Dec, 2011 [facility] [address] [id number] [address] [place] [address], [place] [address] 04 Dec, 2011 [facility] [address] [id number] [address] [place] [address], [place] [address] 30 Nov, 2011 [facility] [address] [id number] [address] [place] [address], [place] [address] 23 Nov, 2011 [facility] [address] [id number] [address] [place] [address], [place] [address] 15 Nov, 2011 [facility] [address] [id number] [address] [place] [address], [place] [address] Nov, [facility] [address] [id number] [address] [place] [address], [place] [address] 14 Oct, 2011 [facility] [address] [id number] [address] [place] [address], [place] [address] Oct, [facility] [address] [id number] [address] [place] [address], [place] [address] Sep, [facility] [address] [id number] [address] [place] [address], [place] [address] Aug, [facility] [address] [id number] [address] [place] [address], [place] [address] Aug, [facility] [address] [id number] [address] [place] [address], [place] [address] Aug, [facility] [address] [id number] [address] [place] [address], [place] [address] Jul, [facility] [address] [id number] [address] [place] [address], [place] [address] Jul, [facility] [address] [id number] [address] [place] [address], [place] [address] Jul, [facility] [address] [id number] [address] [place] [address], [place] [address] 20 Jun, 2011 [facility] [address] [id number] [address] [place] [address], [place] [address] 14 Jun, 2011 [facility] [address] [id number] [address] [place] [id number] 13 Jun, 2011 [facility] [address] [id number] [address] [place] [id number] 13 Jun, 2011 [facility] [address] [id number] [address] [place] [id number] 19 May, 2011 [facility] [address] [id number] [address] [place] [id number] 17 Jan, 2011 [facility] [address] [id number] [address] [place] [id number] 28 Aug, 2010 [facility] [address] [id number] [address] [place] [id number] Aug, [facility] [address] [id number] [address] [place] [id number] Aug, [facility] [address] [id number] [address] [place] [id number] Aug, [facility] [address] [id number] [address] [place] [id number] Jul, [facility] [address] [id number] [address] [place] [id number] Jul, [facility] [address] [id number] [address] [place] [id number] 15 Jun, 2010 [facility] [address] [id number] [address] [place] [id number] 15 Jun, 2010 [facility] [address] [id number] [address] [place] [address] [id number] 16 May, 2010 [facility] [address] [id number] [address] [place] [id number] January, IMMUNIZATIONS Vaccine Route Administration Date Status influenza IIV3 (history) Unknown Aug 01, 2013 Adminis tered SOCIAL HISTORY Never Assessed REASON FOR VISIT PLAN OF CARE VITAL SIGNS MEDICATIONS Unknown Medications RESULTS No Results PROCEDURES No Known procedures INSTRUCTIONS MEDICATIONS ADMINISTERED No Known Medications MEDICAL (GENERAL) HISTORY Type Description Date Medical History hypertension Medical History chronic pain Medical History thyroid disorder-hypothyroid Medical History mixed hyperlipoproteinemia Surgical History Thyroid surgery Surgical History Hysterectomy Surgical History 2 hernia repairs 06/2019 Surgical History surgery on both knees Hospitalization History child x 5 Hospitalization History Hysterectomy Hospitalization History [facility]- 2 hernia repair 06/2019
--- OUTSIDE RECORDS SUMMARY | 2020-02-13 16:25 | XMS REPORT ---
Author Author Cami GLEZ Organization [facility] Address [address] [place] [address] Care Team Providers Care Sap Functional Analyst Name Role Phone DON GLEZ Unavailable PROBLEMS Type Condition ICD9-CM Code [id number] Code Onset Dates Condition S tatus SNOMED Code Problem Hypertension I10 Active 0051668 3 Problem Generalized anxiety disorder F41.1 A ctive 60701255 Problem Depressive disorder, not elsewhere classified F32. 9 Active 74672810 Problem Basal cell carcinoma (BCC) of skin of right ear C4 4.212 Active 283019040 Problem Back pain M54.9 Active 496328149 Problem Skin ulcer of left foot with fat layer exposed L97 .522 Active 19666621 Problem Arthritis M19.90 Active 0331850 Problem COPD (chronic obstructive pulmonary disease) J44.9 Active 00770599 Problem Vitamin D deficiency E55.9 Active 05632901 Problem Lumbar radiculopathy M54.16 Active 604338634 Problem Venous insufficiency I87.2 Active 94329322 ALLERGIES No Information ENCOUNTERS Encounter Location Date Diagnosis [place] [address] [facility] [id number] [address] [place] [id number] Feb, [facility] [address] [facility] [id number] [address] [place] [id number] January, Lumbar radiculopathy M54.16 [facility] [address] [facility] [id number] [address] [place] [id number] January, Radiculopathy, lumbar region M54.16 and Lumbar radiculopathy M54.16 [place] [address] [address] [facility] [id number] [address] [place] [id number] Dec, [id number] [place] [id number] Dec, [facility] [address] [id number] [address] [place] [id number] 14 Dec, 2019 Radiculopathy, lumbar region M54.[address] [id number] [address] 14 Dec, 2019 Radiculopathy, lumbar region M54.16 [facility] [address] [id number] [address] [place] [id number] 09 Dec, 2019 Lumbar radiculopathy M54.16 [facility] [address] [id number] [address] [place] [id number] 02 Dec, 2019 [facility] [address] [id number] [address] [place] [id number] 20 Nov, 2019 [facility] [address] [id number] [address] [place] [id number] 18 Nov, 2019 [facility] [address] [id number] [address] [place] [id number] 17 Nov, 2019 Weight loss R63.4 ; Skin ulc er of left foot with fat layer exposed L97.522 ; Basal cell carcinoma (BCC) of skin of right ear C44.212 ; Hypertension I10 and Lumbar radiculopathy M54.16 [facility] [address] [id number] [address] [place] [id number] 11 Nov, 2019 Back pain M54.9 and Radiculo peg, lumbar region M54.16 [facility] [address] [id number] [address] [place] [id number] 20 Oct, 2019 Radiculopathy, lumbar region M54.16 [facility] [address] [id number] [address] [place] [id number] 19 Oct, 2019 [facility] [address] [id number] [address] [place] [id number] 11 Oct, 2019 Back pain M54.9 [facility] [address] [id number] [address] [place] [id number] 10 Oct, 2019 [facility] [address] [id number] [address] [place] [id number] 06 Oct, 2019 Skin sore L98.9 [facility] [address] [id number] [address] [place] [id number] 24 Sep, 2019 Radiculopathy, lumbar region M54.16 [facility] [address] [id number] [address] [place] [id number] 15 Sep, 2019 Back pain M54.9 [facility] [address] [id number] [address] [place] [id number] 14 Sep, 2019 Generalized anxiety disorder F41.1 [facility] [address] [id number] [address] [place] [id number] Aug, Radiculopathy, lumbar region M54.16 [facility] [address] [id number] [address] [place] [id number] Aug, Back pain M54.9 [facility] [address] [id number] [address] [place] [id number] Aug, Lumbar radiculopathy M54.16 ; Generalized anxiety disorder F41.1 and Drug-induced constipation K59.03 [facility] [address] [id number] [address] [place] [id number] Jul, Radiculopathy, lumbar region M54.16 [facility] [address] [id number] [address] [place] [id number] Jul, [facility] [address] [id number] [address] [place] [id number] Jul, [facility] [address] [facility] [id number] [address] [place] [id number] Jul, Back pain M54.9 [facility] [address] [facility] [id number] [address] [place] [id number] Jul, Radiculopathy, lumbar region M54.16 [facility] [address] [id number] [address] [place] [id number] Jul, Radiculopathy, lumbar region M54.16 [facility] [address] [id number] [address] [place] [id number] Jun, Back pain M54.9 [facility] [address] [id number] [address] [place] [id number] Jun, [facility] [address] [id number] [address] [place] [id number] Jun, Radiculopathy, lumbar region M54.16 [facility] [address] [id number] [address] [place] [id number] Jun, [facility] [address] [id number] [address] [place] [id number] May, Back pain M54.9 [facility] [address] [id number] [address] [place] [id number] May, Cellulitis of other specifie d site L03.818 ; Dermatitis L30.9 and Lumbar radiculopathy M54.16 [facility] [address] [id number] [address] [place] [id number] May, [facility] [address] [id number] [address] [place] [id number] May, Back pain M54.9 [facility] [address] [id number] [address] [place] [id number] May, [facility] [address] [id number] [address] [place] [id number] May, Back pain M54.9 [facility] [address] [id number] [address] [place] [id number] Apr, [facility] [address] [id number] [address] [place] [id number] Apr, Back pain M54.9 [facility] [address] [id number] [address] [place] [id number] Apr, Hyponatremia E87.1 [facility] [address] [facility] [id number] [address] [place] [id number] Apr, Hyponatremia E87.1 [facility] [address] [facility] [id number] [address] [place] [id number] Mar, Arthritis M19.90 ; Impacted cerumen of right ear H61.21 and Hypertension I10 [facility] [id number] [place] [id number] Mar, [facility] [address] [facility] [id number] [address] [place] [id number] Mar, Back pain M54.9 [facility] [address] [facility] [id number] [address] [place] [id number] Feb, Back pain M54.9 [facility] [address] [id number] [address] [place] [id number] Feb, [facility] [address] [facility] [id number] [address] [place] [id number] Feb, Dermatitis L30.9 [facility] [address] [facility] [id number] [address] [place] [id number] January, Dermatitis L30.9 [facility] [address] [facility] [id number] [address] [place] [id number] January, [facility] [address] [id number] [address] [place] [id number] January, Back pain M54.9 [facility] [address] [id number] [address] [place] [id number] Dec, [facility] [address] [facility] [id number] [address] [place] [id number] Dec, Back pain M54.9 [facility] [address] [id number] [address] [place] [id number] Dec, Lumbar radiculopathy M54.16 ; Arthritis M19.90 and Dyshydrosis L30.1 [facility] [address] [id number] [address] [place] [id number] Nov, Back pain M54.9 [facility] [address] [id number] [address] [place] [id number] Nov, [facility] [address] [id number] [address] [place] [id number] Oct, [facility] [address] [id number] [address] [place] [id number] Oct, Back pain M54.9 [facility] [address] [id number] [address] [place] [id number] Oct, [facility] [address] [id number] [address] [place] [id number] Oct, [facility] [address] [id number] [address] [place] [id number] Sep, Back pain M54.9 [facility] [address] [facility] [id number] [address] [place] [id number] Sep, [facility] [address] [id number] [address] [place] [id number] Aug, Back pain M54.9 [facility] [address] [facility] [id number] [address] [place] [id number] Aug, Encounter for immunization Z 23 ; Arthritis M19.90 and Generalized anxiety disorder F41.1 [facility] [address] [id number] [address] [place] [id number] Aug, [facility] [address] [facility] [id number] [address] [place] [id number] Aug, [facility] [address] [id number] [address] [place] [id number] Jul, Back pain M54.9 [facility] [address] [id number] [address] [place] [id number] Jul, [facility] [address] [id number] [address] [place] [id number] Jul, [facility] [address] [id number] [address] [place] [id number] Jun, Back pain M54.9 [facility] [address] [id number] [address] [place] [id number] Jun, [facility] [address] [id number] [address] [place] [id number] Jun, Back pain M54.9 [facility] [address] [id number] [address] [place] [id number] May, Lumbar radiculopathy M54.16 ; Hypertension I10 and Generalized anxiety disorder F41.1 [facility] [address] [id number] [address] [place] [id number] 06 May, 2018 Back pain M54.9 [facility] [address] [id number] [address] [place] [id number] Apr, [facility] [address] [id number] [address] [place] [id number] Apr, [facility] [address] [id number] [address] [place] [id number] Apr, Back pain M54.9 [facility] [address] [id number] [address] [place] [id number] Mar, Back pain M54.9 [facility] [address] [id number] [address] [place] [id number] Feb, [facility] [address] [id number] [address] [place] [id number] Feb, [facility] [address] [id number] [address] [place] [id number] 15 Feb, 2018 [facility] [address] [id number] [address] [place] [id number] Feb, Back pain M54.9 [facility] [address] [id number] [address] [place] [id number] Feb, Back pain M54.9 ; Hypertensi on I10 ; Generalized anxiety disorder F41.1 and Venous insufficiency I87.2 [facility] [address] [id number] [address] [place] [id number] January, [facility] [address] [id number] [address] [place] [id number] January, Back pain M54.9 [facility] [address] [id number] [address] [place] [id number] Dec, [facility] [address] [id number] [address] [place] [id number] Dec, Back pain M54.9 [facility] [address] [id number] [address] [place] [id number] Nov, Back pain M54.9 [facility] [address] [id number] [address] [place] [id number] Nov, [facility] [address] [id number] [address] [place] [id number] Nov, Lumbar radiculopathy M54.16 ; Hypertension I10 ; Arthritis M19.90 and Back pain M54.9 [facility] [address] [id number] [address] [place] [id number] Oct, Back pain M54.9 [facility] [address] [id number] [address] [place] [id number] Oct, [facility] [address] [id number] [address] [place] [id number] Sep, Back pain M54.9 [facility] [address] [id number] [address] [place] [id number] Sep, [facility] [address] [id number] [address] [place] [id number] Aug, Back pain M54.9 [facility] [address] [id number] [address] [place] [id number] Jul, Back pain M54.9 [facility] [address] [facility] [id number] [address] [place] [id number] Jul, Encounter for immunization Z 23 ; Back pain M54.9 ; Hypertension I10 and Lumbar radiculopathy M54.16 [facility] [address] [id number] [address] [place] [id number] Jul, Back pain M54.9 [facility] [address] [id number] [address] [place] [id number] Jun, Vitamin D deficiency E55.9 [facility] [address] [id number] [address] [place] [id number] 04 Jun, 2017 Back pain M54.9 [facility] [address] [facility] [id number] [address] [place] [id number] 20 May, 2017 [facility] [address] [facility] [id number] [address] [place] [id number] 08 May, 2017 [facility] [address] [facility] [id number] [address] [place] [id number] 08 May, 2017 [facility] [address] [facility] [id number] [address] [place] [id number] May, Back pain M54.9 [facility] [address] [facility] [id number] [address] [place] [id number] 15 Apr, 2017 Back pain M54.9 ; Hypertensi on I10 ; Arthritis M19.90 and Generalized anxiety disorder F41.1 [facility] [address] [facility] [id number] [address] [place] [id number] Apr, Back pain M54.9 [facility] [address] [id number] [address] [place] [id number] Mar, Back pain M54.9 [facility] [address] [id number] [address] [place] [id number] 10 Mar, 2017 Vitamin D deficiency E55.9 [facility] [address] [id number] [address] [place] [id number] 15 Feb, 2017 Vitamin D deficiency E55.9 [facility] [address] [id number] [address] [place] [id number] 14 Feb, 2017 Vitamin D deficiency E55.9 [facility] [address] [id number] [address] [place] [id number] 13 Feb, 2017 Back pain M54.9 [facility] [address] [id number] [address] [place] [id number] January, Back pain M54.9 [facility] [address] [id number] [address] [place] [id number] January, Arthritis M19.90 [facility] [address] [id number] [address] [place] [id number] January, Vitamin D deficiency E55.9 a nd Arthritis M19.90 [facility] [address] [id number] [address] [place] [id number] Dec, Medicare annual wellness vis it, initial Z00.00 and Encounter for immunization Z23 [facility] [address] [id number] [address] [place] [id number] Dec, Back pain M54.9 [facility] [address] [id number] [address] [place] [id number] Nov, Back pain M54.9 [facility] [address] [id number] [address] [place] [id number] Oct, Back pain M54.9 [facility] [address] [id number] [address] [place] [id number] 14 Oct, 2016 COPD (chronic obstructive pu lmonary disease) J44.9 [facility] [address] [id number] [address] [place] [id number] 14 Oct, 2016 [facility] [address] [id number] [address] [place] [id number] 02 Oct, 2016 Hypertension I10 ; Back pain M54.9 and Encounter for immunization Z23 [facility] [address] [id number] [address] [place] [id number] Sep, [facility] [address] [id number] [address] [place] [id number] Sep, Back pain M54.9 [facility] [address] [id number] [address] [place] [id number] Sep, Back pain M54.9 [facility] [address] [id number] [address] [place] [id number] Aug, [facility] [address] [id number] [address] [place] [id number] Aug, Back pain M54.9 [facility] [address] [id number] [address] [place] [id number] Aug, [facility] [address] [id number] [address] [place] [id number] Aug, [facility] [address] [facility] [id number] [address] [place] [id number] Aug, Back pain M54.9 [facility] [address] [id number] [address] [place] [id number] Jul, [facility] [address] [facility] [id number] [address] [place] [id number] Jul, Back pain M54.9 [facility] [address] [id number] [address] [place] [id number] Jun, Back pain M54.9 ; Hypertensi on I10 ; Generalized anxiety disorder F41.1 and Encounter for immunization Z23 [facility] [address] [id number] [address] [place] [id number] Jun, [facility] [address] [id number] [address] [place] [id number] May, [facility] [address] [id number] [address] [place] [id number] Apr, [facility] [address] [id number] [address] [place] [id number] Apr, [facility] [address] [id number] [address] [place] [id number] Mar, [facility] [address] [id number] [address] [place] [id number] Mar, [facility] [address] [id number] [address] [place] [id number] Mar, [facility] [address] [id number] [address] [place] [id number] Feb, Back pain M54.9 and Hyperten madelyn I10 [facility] [address] [id number] [address] [place] [id number] Feb, Back pain M54.9 [facility] [address] [id number] [address] [place] [id number] Dec, COPD (chronic obstructive pu lmonary disease) J44.9 [facility] [address] [id number] [address] [place] [id number] Dec, [facility] [address] [id number] [address] [place] [id number] Dec, Back pain M54.9 [facility] [address] [id number] [address] [place] [id number] Nov, Back pain M54.9 [facility] [address] [id number] [address] [place] [id number] 14 Nov, 2015 COPD (chronic obstructive pu lmonary disease) J44.9 [facility] [address] [id number] [address] [place] [id number] Nov, Hypertension I10 and Back pa in M54.9 [facility] [address] [id number] [address] [place] [id number] Oct, Hypertension I10 and Back pa in M54.9 [facility] [address] [id number] [address] [place] [id number] Oct, Back pain M54.9 [facility] [address] [id number] [address] [place] [id number] Sep, Back pain M54.9 [facility] [address] [id number] [address] [place] [id number] Sep, [facility] [address] [id number] [address] [place] [id number] Sep, [facility] [address] [id number] [address] [place] [id number] Sep, [facility] [address] [id number] [address] [place] [id number] Sep, [facility] [address] [id number] [address] [place] [id number] Aug, [facility] [address] [id number] [address] [place] [id number] Aug, [facility] [address] [id number] [address] [place] [id number] Aug, [facility] [address] [id number] [address] [place] [id number] Aug, [facility] [address] [id number] [address] [place] [id number] Aug, [facility] [address] [id number] [address] [place] [id number] Jul, [facility] [address] [id number] [address] [place] [id number] Jul, Back pain M54.9 ; Arthritis M19.90 ; Hypertension I10 and Encounter for immunization Z23 [facility] [address] [id number] [address] [place] [id number] Jul, Generalized anxiety disorder F41.1 and Depressive disorder, not elsewhere classified F32.9 [facility] [address] [id number] [address] [place] [id number] Jul, [facility] [address] [id number] [address] [place] [id number] Jul, [facility] [address] [id number] [address] [place] [id number] Jul, [facility] [address] [id number] [address] [place] [id number] Jun, [facility] [address] [id number] [address] [place] [id number] Jun, [facility] [address] [id number] [address] [place] [id number] 25 May, 2015 [facility] [address] [id number] [address] [place] [id number] May, [facility] [address] [id number] [address] [place] [id number] May, [facility] [address] [id number] 19 [place] [address] 11 May, 2015 [facility] [address] [facility] [id number] [address] [place] [address] 10 May, 2015 Benign essential hypertensio n 401.1 ; Anxiety state, unspecified 300.00 ; Back pain 724.5 and Arthritis 716.90 [facility] [address] [id number] [address] [place] [address] May, [facility] [address] [id number] [address] [place] [address] Apr, [facility] [address] [id number] [address] [place] [address] Apr, [facility] [address] [id number] [address] [place] [address] Apr, [facility] [address] [id number] [address] [place] [address] Mar, [facility] [address] [id number] [address] [place] [address] Mar, [facility] [address] [id number] [address] [place] [address] Mar, [facility] [address] [facility] [id number] [address] [place] [address] Feb, High risk medication use V58 .69 [facility] [address] [id number] [address] [place] [address] Feb, Benign essential hypertensio n 401.1 ; Anxiety state, unspecified 300.00 and Chronic pain 338.29 [facility] [address] [id number] [address] [place] [address] Feb, [facility] [address] [facility] [id number] [address] [place] [address] January, [facility] [address] [id number] [address] [place] [address] January, [facility] [address] [id number] [address] [place] [address] January, [facility] [address] [id number] [address] [place] [address] January, [facility] [address] [facility] [id number] [address] [place] [address] Dec, [facility] [address] [id number] [address] [place] [address] Dec, [facility] [address] [id number] [address] [place] [address], [place] [address] Nov, [facility] [address] [id number] [address] [place] [address], [place] [address] Nov, [facility] [address] [id number] [address] [place] [address], [place] [address] Nov, [facility] [address] [id number] [address] [place] [address], [place] [address] Nov, [facility] [address] [id number] [address] [place] [address], [place] [address] Oct, [facility] [address] [id number] [address] [place] [address], [place] [address] Oct, [facility] [address] [id number] [address] [place] [address], [place] [address] Oct, [facility] [address] [id number] [address] [place] [address], [place] [address] Oct, [facility] [address] [id number] [address] [place] [address], [place] [address] Oct, [facility] [address] [id number] [address] [place] [address], [place] [address] Sep, [facility] [address] [id number] [address] [place] [address], [place] [address] Sep, [facility] [address] [id number] [address] [place] [address], [place] [address] Sep, [facility] [address] [id number] [address] [place] [address], [place] [address] Sep, [facility] [address] [id number] [address] [place] [address], [place] [address] Aug, [facility] [address] [id number] [address] [place] [address], [place] [address] Aug, [facility] [address] [id number] [address] [place] [address], [place] [address] Aug, [facility] [address] [id number] [address] [place] [address], [place] [address] Aug, [facility] [address] [id number] [address] [place] [address], [place] [address] Aug, [facility] [address] [id number] [address] [place] [address], [place] [address] Aug, [facility] [address] [id number] [address] [place] [address], [place] [address] Jul, [facility] [address] [id number] [address] [place] [address], [place] [address] Jul, [facility] [address] [id number] [address] [place] [address], [place] [address] Jun, [facility] [address] [id number] [address] [place] [address], [place] [address] Jun, [facility] [address] [id number] [address] [place] [address], [place] [address] Jun, [facility] [address] [id number] [address] [place] [address], [place] [address] Jun, [facility] [address] [id number] [address] [place] [address], [place] [address] May, [facility] [address] [id number] [address] [place] [address], [place] [address] May, [facility] [address] [id number] [address] [place] [address], [place] [address] May, [facility] [address] [id number] [address] [place] [address], [place] [address] May, [facility] [address] [id number] [address] [place] [address], [place] [address] Apr, [facility] [address] [id number] [address] [place] [address], [place] [address] Apr, [facility] [address] [id number] [address] [place] [address] Apr, [facility] [address] [id number] [address] [place] [address], [place] [address] Apr, [facility] [address] [id number] [address] [place] [address], [place] [address] Apr, [facility] [address] [id number] [address] [place] [address], [place] [address] Apr, [facility] [address] [id number] [address] [place] [address], [place] [address] Mar, [facility] [address] [id number] [address] [place] [address], [place] [address] Mar, [facility] [address] [id number] [address] [place] [address], [place] [address] Mar, [facility] [address] [id number] [address] [place] [address], [place] [address] Mar, [facility] [address] [id number] [address] [place] [address], [place] [address] Feb, [facility] [address] [id number] [address] [place] [address], [place] [address] Feb, [facility] [address] [id number] [address] [place] [address], [place] [address] Feb, [facility] [address] [id number] [address] [place] [address], [place] [address] January, [facility] [address] [id number] [address] [place] [address], [place] [address] January, [facility] [address] [id number] [address] [place] [address], [place] [address] January, [facility] [address] [id number] [address] [place] [address], [place] [address] January, [facility] [address] [id number] [address] [place] [address] January, [facility] [address] [id number] [address] [place] [address], [place] [address] January, [facility] [address] [id number] [address] [place] [address], [place] [address] January, [facility] [address] [id number] [address] [place] [address], [place] [address] January, [facility] [address] [id number] [address] [place] [address], [place] [address] Dec, [facility] [address] [id number] [address] [place] [address], [place] [address] Dec, [facility] [address] [id number] [address] [place] [address], [place] [address] Dec, [facility] [address] [id number] [address] [place] [address], [place] [address] Dec, [facility] [address] [id number] [address] [place] [address], [place] [address] Dec, [facility] [address] [id number] [address] [place] [address], [place] [address] Dec, [facility] [address] [id number] [address] [place] [address], [place] [address] Dec, [facility] [address] [id number] [address] [place] [address], [place] [address] Nov, [facility] [address] [id number] [address] [place] [address], [place] [address] Nov, [facility] [address] [id number] [address] [place] [address], [place] [address] Nov, [facility] [address] [id number] [address] [place] [address], [place] [address] Nov, [facility] [address] [id number] [address] [place] [address], [place] [address] Nov, [facility] [address] [id number] [address] [place] [address], [place] [address] 18 Nov, 2013 [facility] [address] [id number] [address] [place] [address], [place] [address] 11 Nov, 2013 [facility] [address] [id number] [address] [place] [address], [place] [address] 11 Nov, 2013 [facility] [address] [id number] [address] [place] [address], [place] [address] 07 Nov, 2013 [facility] [address] [id number] [address] [place] [address], [place] [address] 07 Nov, 2013 [facility] [address] [id number] [address] [place] [address], [place] [address] 07 Nov, 2013 [facility] [address] [id number] [address] [place] [address], [place] [address] Nov, [facility] [address] [id number] [address] [place] [address], [place] [address] 07 Oct, 2013 [facility] [address] [id number] [address] [place] [address], [place] [address] 07 Oct, 2013 [facility] [address] [id number] [address] [place] [address], [place] [address] Sep, [facility] [address] [id number] [address] [place] [address], [place] [address] Sep, [facility] [address] [id number] [address] [place] [address], [place] [address] Sep, [facility] [address] [id number] [address] [place] [address], [place] [address] Sep, [facility] [address] [id number] [address] [place] [address], [place] [address] Aug, [facility] [address] [id number] [address] [place] [address], [place] [address] Aug, [facility] [address] [id number] [address] [place] [address], [place] [address] 15 Jul, 2013 [facility] [address] [id number] [address] [place] [address], [place] [address] 15 Jul, 2013 [facility] [address] [id number] [address] [place] [address], [place] [address] 15 Jul, 2013 [facility] [address] [id number] [address] [place] [address], [place] [address] 15 Jul, 2013 [facility] [address] [id number] [address] [place] [address], [place] [address] 28 Jun, 2013 [facility] [address] [id number] [address] [place] [address], [place] [address] 28 Jun, 2013 [facility] [address] [id number] [address] [place] [address], [place] [address] 18 Jun, 2013 [facility] [address] [id number] [address] [place] [address], [place] [address] 18 Jun, 2013 [facility] [address] [id number] [address] [place] [address], [place] [address] 14 Jun, 2013 [facility] [address] [id number] [address] [place] [address], [place] [address] 14 Jun, 2013 [facility] [address] [id number] [address] [place] [address], [place] [address] 20 May, 2013 [facility] [address] [id number] [address] [place] [address], [place] [address] 18 May, 2013 [facility] [address] [id number] [address] [place] [address], [place] [address] 16 May, 2013 [facility] [address] [id number] [address] [place] [address], [place] [address] Apr, [facility] [address] [id number] [address] [place] [address], [place] [address] Apr, [facility] [address] [id number] [address] [place] [address], [place] [address] Apr, [facility] [address] [id number] [address] [place] [address], [place] [address] Mar, [facility] [address] [id number] [address] [place] [address], [place] [address] Mar, [facility] [address] [id number] [address] [place] [address], [place] [address] Feb, [facility] [address] [id number] [address] [place] [address], [place] [address] Feb, [facility] [address] [id number] [address] [place] [address], [place] [address] Feb, [facility] [address] [id number] [address] [place] [address], [place] [address] January, [facility] [address] [id number] [address] [place] [address], [place] [address] January, [facility] [address] [id number] [address] [place] [address], [place] [address] January, [facility] [address] [id number] [address] [place] [address], [place] [address] Dec, [facility] [address] [id number] [address] [place] [address], [place] [address] Dec, [facility] [address] [id number] [address] [place] [address], [place] [address] Dec, [facility] [address] [id number] [address] [place] [address], [place] [address] Nov, [facility] [address] [id number] [address] [place] [address], [place] [address] 14 Nov, 2012 [facility] [address] [id number] [address] [place] [address], [place] [address] Nov, [facility] [address] [id number] [address] [place] [address], [place] [address] 18 Oct, 2012 [facility] [address] [id number] [address] [place] [address], [place] [address] Oct, [facility] [address] [id number] [address] [place] [address], [place] [address] Sep, [facility] [address] [id number] [address] [place] [address], [place] [address] Sep, [facility] [address] [id number] [address] [place] [address], [place] [address] Sep, [facility] [address] [id number] [address] [place] [address], [place] [address] Aug, [facility] [address] [id number] [address] [place] [address], [place] [address] Aug, [facility] [address] [id number] [address] [place] [address], [place] [address] Aug, [facility] [address] [id number] [address] [place] [address], [place] [address] Aug, [facility] [address] [id number] [address] [place] [address], [place] [address] Aug, [facility] [address] [id number] [address] [place] [address], [place] [address] Jul, [facility] [address] [id number] [address] [place] [address], [place] [address] Jul, [facility] [address] [id number] [address] [place] [address], [place] [address] Jul, [facility] [address] [id number] [address] [place] [address], [place] [address] Jul, [facility] [address] [id number] [address] [place] [address], [place] [address] Jul, [facility] [address] [id number] [address] [place] [address], [place] [address] Jul, [facility] [address] [id number] [address] [place] [address], [place] [address] Jun, [facility] [address] [id number] [address] [place] [address], [place] [address] 31 Jun, 2012 [facility] [address] [id number] [address] [place] [address], [place] [address] 29 Jun, 2012 [facility] [address] [id number] [address] [place] [address], [place] [address] 04 Jun, 2012 [facility] [address] [id number] [address] [place] [address], [place] [address] 13 May, 2012 [facility] [address] [id number] [address] [place] [address], [place] [address] 06 May, 2012 [facility] [address] [id number] [address] [place] [address], [place] [address] 16 Apr, 2012 [facility] [address] [id number] [address] [place] [address], [place] [address] 15 Apr, 2012 [facility] [address] [id number] [address] [place] [address], [place] [address] 14 Apr, 2012 [facility] [address] [id number] [address] [place] [address], [place] [address] 17 Mar, 2012 [facility] [address] [id number] [address] [place] [address], [place] [address] Mar, [facility] [address] [id number] [address] [place] [address], [place] [address] Feb, [facility] [address] [id number] [address] [place] [address], [place] [address] 24 Jan, 2012 [facility] [address] [id number] [address] [place] [address], [place] [address] January, [facility] [address] [id number] [address] [place] [address], [place] [address] Dec, [facility] [address] [id number] [address] [place] [address], [place] [address] Dec, [facility] [address] [id number] [address] [place] [address], [place] [address] 05 Dec, 2011 [facility] [address] [id number] [address] [place] [address], [place] [address] 04 Dec, 2011 [facility] [address] [id number] [address] [place] [address], [place] [address] 30 Nov, 2011 [facility] [address] [id number] [address] [place] [address], [place] [address] 23 Nov, 2011 [facility] [address] [id number] [address] [place] [address], [place] [address] 15 Nov, 2011 [facility] [address] [id number] [address] [place] [address], [place] [address] 02 Nov, 2011 [facility] [address] [id number] [address] [place] [address], [place] [address] 14 Oct, 2011 [facility] [address] [id number] [address] [place] [address], [place] [address] Oct, [facility] [address] [id number] [address] [place] [address], [place] [address] Sep, [facility] [address] [id number] [address] [place] [address], [place] [address] Aug, [facility] [address] [id number] [address] [place] [address], [place] [address] Aug, [facility] [address] [id number] [address] [place] [address], [place] [address] Aug, [facility] [address] [id number] [address] [place] [address], [place] [address] Jul, [facility] [address] [id number] [address] [place] [address], [place] [address] Jul, [facility] [address] [id number] [address] [place] [address], [place] [address] Jul, [facility] [address] [id number] [address] [place] [address], [place] [address] 20 Jun, 2011 [facility] [address] [id number] [address] [place] [id number] 14 Jun, 2011 [facility] [address] [id number] [address] [place] [id number] 13 Jun, 2011 [facility] [address] [id number] [address] [place] [id number] 13 Jun, 2011 [facility] [address] [id number] [address] [place] [id number] 19 May, 2011 [facility] [address] [id number] [address] [place] [id number] 17 Jan, 2011 [facility] [address] [id number] [address] [place] [id number] 28 Aug, 2010 [facility] [address] [id number] [address] [place] [id number] 27 Aug, 2010 [facility] [address] [id number] [address] [place] [id number] Aug, [facility] [address] [id number] [address] [place] [id number] Aug, [facility] [address] [id number] [address] [place] [id number] Jul, [facility] [address] [id number] [address] [place] [id number] Jul, [facility] [address] [id number] [address] [place] [id number] 15 Jun, 2010 [facility] [address] [id number] [address] [place] [id number] 15 Jun, 2010 [facility] [address] [id number] [address] [place] [id number] 16 May, 2010 [facility] [address] [id number] [address] [place] [id number] January, IMMUNIZATIONS No Known Immunizations SOCIAL HISTORY Never Assessed REASON FOR VISIT [...]
--- OUTSIDE RECORDS SUMMARY | 2020-02-13 16:26 | XMS REPORT ---
Author Author Cami GLEZ Organization [facility] Address [address] [place] [address] Care Team Providers Care Manager Molecular Name Role Phone DON GLEZ Unavailable PROBLEMS Type Condition ICD9-CM Code [id number] Code Onset Dates Condition S tatus SNOMED Code Problem Hypertension I10 Active 2975844 3 Problem Generalized anxiety disorder F41.1 A ctive 45504571 Problem Depressive disorder, not elsewhere classified F32. 9 Active 95726139 Problem Basal cell carcinoma (BCC) of skin of right ear C4 4.212 Active 479557418 Problem Back pain M54.9 Active 863232111 Problem Skin ulcer of left foot with fat layer exposed L97 .522 Active 77602545 Problem Arthritis M19.90 Active 5790094 Problem COPD (chronic obstructive pulmonary disease) J44.9 Active 76904122 Problem Vitamin D deficiency E55.9 Active 34630728 Problem Lumbar radiculopathy M54.16 Active 134595362 Problem Venous insufficiency I87.2 Active 57787147 ALLERGIES No Information ENCOUNTERS Encounter Location Date Diagnosis [place] [address] [facility] [place] [id number] [address] [place] [phone] Feb, [facility] [address] [facility] [place] [id number] [address] [place] [phone] 24 Dec, [address] [place] [address] Dec, [facility] [address] [facility] [place] [id number] [address] [place] [phone] 14 Dec, 2019 Radiculopathy, lumbar region M54.[address] [id number], [place] [address] Dec, Radiculopathy, lumbar region M54.16 [place] [address] [id number] [address] [place] [phone] 09 Dec, 2019 Lumbar radiculopathy M54.16 [facility] [address] [id number] [address] [place] [address] 02 Dec, 2019 [facility] [address] [id number] [address] [place] [phone] 20 Nov, 2019 [facility] [address] [id number] [address] [place] [phone] 18 Nov, 2019 [facility] [address] [id number] [address] [place] [phone] 17 Nov, 2019 Weight loss R63.4 ; Skin ulc er of left foot with fat layer exposed L97.522 ; Basal cell carcinoma (BCC) of skin of right ear C44.212 ; Hypertension I10 and Lumbar radiculopathy M54.16 [facility] [address] [id number] [address] [place] [phone] 11 Nov, 2019 Back pain M54.9 and Radiculo peg, lumbar region M54.16 [facility] [address] [id number] [address] [place] [phone] 20 Oct, 2019 Radiculopathy, lumbar region M54.16 [facility] [address] [id number] [address] [place] [phone] 19 Oct, 2019 [facility] [address] [id number] [address] [place] [phone] Oct, Back pain M54.9 [facility] [address] [id number] [address] [place] [phone] 10 Oct, 2019 [facility] [address] [id number] [address] [place] [phone] 06 Oct, 2019 Skin sore L98.9 [facility] [address] [id number] [address] [place] [phone] Sep, Radiculopathy, lumbar region M54.16 [facility] [address] [id number] [address] [place] [phone] 15 Sep, 2019 Back pain M54.9 [facility] [address] [id number] [address] [place] [address] 14 Sep, 2019 Generalized anxiety disorder F41.1 [facility] [address] [id number] [address] [place] [address] 30 Aug, 2019 Radiculopathy, lumbar region M54.16 [facility] [address] [id number] [address] [place] [phone] Aug, Back pain M54.9 [facility] [address] [id number] [address] [place] [address] Aug, Lumbar radiculopathy M54.16 ; Generalized anxiety disorder F41.1 and Drug-induced constipation K59.03 [facility] [address] [id number] [address] [place] [address] Jul, Radiculopathy, lumbar region M54.16 [facility] [address] [id number] [address] [place] [address] Jul, [facility] [address] [id number] [address] [place] [phone] Jul, [facility] [address] [id number] [address] [place] [address] Jul, Back pain M54.9 [facility] [address] [id number] [address] [place] [phone] Jul, Radiculopathy, lumbar region M54.16 [facility] [address] [id number] [address] [place] [address] Jul, Radiculopathy, lumbar region M54.16 [facility] [address] [id number] [address] [place] [address] Jun, Back pain M54.9 [facility] [address] [id number] [address] [place] [phone] 09 Jun, 2019 [facility] [address] [id number] [address] [place] [phone] Jun, Radiculopathy, lumbar region M54.16 [facility] [address] [id number] [address] [place] [phone] 08 Jun, 2019 [facility] [address] [id number] [address] [place] [phone] 30 May, 2019 Back pain M54.9 [facility] [address] [id number] [address] [place] [phone] 27 May, 2019 Cellulitis of other specifie d site L03.818 ; Dermatitis L30.9 and Lumbar radiculopathy M54.16 [facility] [address] [id number] [address] [place] [phone] May, [facility] [address] [id number] [address] [place] [address] May, Back pain M54.9 [facility] [address] [id number] [address] [place] [phone] 05 May, 2019 [facility] [address] [id number] [address] [place] [phone] 04 May, 2019 Back pain M54.9 [facility] [address] [id number] [address] [place] [phone] Apr, [facility] [address] [id number] [address] [place] [phone] Apr, Back pain M54.9 [facility] [address] [id number] [address] [place] [address] Apr, Hyponatremia E87.1 [facility] [address] [id number] [address] [place] [phone] Apr, Hyponatremia E87.1 [facility] [address] [id number] [address] [place] [phone] Mar, Arthritis M19.90 ; Impacted cerumen of right ear H61.[address] [facility] [id number] [place] [id number] Mar, [facility] [address] [id number] [address] [place] [phone] Mar, Back pain M54.9 [facility] [address] [id number] [address] [place] [phone] Feb, Back pain M54.9 [facility] [address] [id number] [address] [place] [address] Feb, [facility] [address] [id number] [address] [place] [phone] Feb, Dermatitis L30.9 [facility] [address] [id number] [address] [place] [phone] January, Dermatitis L30.9 [facility] [address] [id number] [address] [place] [address] January, [facility] [address] [id number] [address] [place] [phone] January, Back pain M54.9 [facility] [address] [id number] [address] [place] [phone] Dec, [facility] [address] [id number] [address] [place] [phone] Dec, Back pain M54.9 [facility] [address] [id number] [address] [place] [address] Dec, Lumbar radiculopathy M54.16 ; Arthritis M19.90 and Dyshydrosis L30.1 [facility] [address] [id number] [address] [place] [phone] Nov, Back pain M54.9 [facility] [address] [id number] [address] [place] [phone] Nov, [facility] [address] [id number] [address] [place] [phone] Oct, [facility] [address] [id number] [address] [place] [phone] Oct, Back pain M54.9 [facility] [address] [id number] [address] [place] [phone] Oct, [facility] [address] [id number] [address] [place] [phone] Oct, [facility] [address] [id number] [address] [place] [phone] Sep, Back pain M54.9 [facility] [address] [id number] [address] [place] [phone] Sep, [facility] [address] [id number] [address] [place] [phone] Aug, Back pain M54.9 [facility] [address] [id number] [address] [place] [phone] Aug, Encounter for immunization Z 23 ; Arthritis M19.90 and Generalized anxiety disorder F41.1 [facility] [address] [id number] [address] [place] [phone] Aug, [facility] [address] [id number] [address] [place] [phone] Aug, [facility] [address] [id number] [address] [place] [phone] Jul, Back pain M54.9 [facility] [address] [id number] [address] [place] [id number] Jul, [facility] [address] [id number] [address] [place] [address] Jul, [facility] [address] [id number] [address] [place] [phone] Jun, Back pain M54.9 [facility] [address] [id number] [address] [place] [phone] Jun, [facility] [address] [id number] [address] [place] [address] Jun, Back pain M54.9 [facility] [address] [id number] [address] [place] [phone] 11 May, 2018 Lumbar radiculopathy M54.16 ; Hypertension I10 and Generalized anxiety disorder F41.1 [facility] [address] [id number] [address] [place] [phone] 06 May, 2018 Back pain M54.9 [facility] [address] [id number] [address] [place] [address] Apr, [facility] [address] [id number] [address] [place] [address] Apr, [facility] [address] [id number] [address] [place] [address] Apr, Back pain M54.9 [facility] [address] [id number] [address] [place] [phone] Mar, Back pain M54.9 [facility] [address] [id number] [address] [place] [address] Feb, [facility] [address] [id number] [address] [place] [phone] Feb, [facility] [address] [id number] [address] [place] [phone] 15 Feb, 2018 [facility] [address] [id number] [address] [place] [phone] 14 Feb, 2018 Back pain M54.9 [facility] [address] [id number] [address] [place] [phone] Feb, Back pain M54.9 ; Hypertensi on I10 ; Generalized anxiety disorder F41.1 and Venous insufficiency I87.2 [facility] [address] [id number] [address] [place] [phone] January, [facility] [address] [id number] [address] [place] [phone] January, Back pain M54.9 [facility] [address] [id number] [address] [place] [phone] Dec, [facility] [address] [id number] [address] [place] [address] Dec, Back pain M54.9 [facility] [address] [id number] [address] [place] [address] Nov, Back pain M54.9 [facility] [address] [id number] [address] [place] [address] Nov, [facility] [address] [id number] [address] [place] [address] Nov, Lumbar radiculopathy M54.16 ; Hypertension I10 ; Arthritis M19.90 and Back pain M54.9 [facility] [address] [id number] [address] [place] [address] Oct, Back pain M54.9 [facility] [address] [id number] [address] [place] [address] Oct, [facility] [address] [id number] [address] [place] [phone] Sep, Back pain M54.9 [facility] [address] [id number] [address] [place] [phone] Sep, [facility] [address] [facility] [place] [id number] [address] [place] [address] Aug, Back pain M54.9 [facility] [address] [id number] [address] [place] [phone] Jul, Back pain M54.9 [facility] [address] [id number] [address] [place] [phone] Jul, Encounter for immunization Z 23 ; Back pain M54.9 ; Hypertension I10 and Lumbar radiculopathy M54.16 [facility] [address] [id number] [address] [place] [address] Jul, Back pain M54.9 [facility] [address] [id number] [address] [place] [address] Jun, Vitamin D deficiency E55.9 [facility] [address] [id number] [address] [place] [phone] Jun, Back pain M54.9 [facility] [address] [id number] [address] [place] [phone] May, [facility] [address] [id number] [address] [place] [phone] May, [facility] [address] [id number] [address] [place] [phone] May, [facility] [address] [id number] [address] [place] [address] May, Back pain M54.9 [facility] [address] [id number] [address] [place] [address] Apr, Back pain M54.9 ; Hypertensi on I10 ; Arthritis M19.90 and Generalized anxiety disorder F41.1 [facility] [address] [id number] [address] [place] [address] Apr, Back pain M54.9 [facility] [address] [id number] [address] [place] [address] Mar, Back pain M54.9 [facility] [address] [id number] [address] [place] [address] Mar, Vitamin D deficiency E55.9 [facility] [address] [id number] [address] [place] [id number] 15 Feb, 2017 Vitamin D deficiency E55.9 [facility] [address] [id number] [address] [place] [address] 14 Feb, 2017 Vitamin D deficiency E55.9 [facility] [address] [id number] [address] [place] [phone] 13 Feb, 2017 Back pain M54.9 [facility] [address] [id number] [address] [place] [address] January, Back pain M54.9 [facility] [address] [id number] [address] [place] [phone] January, Arthritis M19.90 [facility] [address] [facility] [place] [id number] [address] [place] [phone] January, Vitamin D deficiency E55.9 a nd Arthritis M19.90 [facility] [address] [facility] [place] [id number] [address] [place] [phone] Dec, Medicare annual wellness vis it, initial Z00.00 and Encounter for immunization Z23 [facility] [address] [facility] [place] [id number] [address] [place] [phone] Dec, Back pain M54.9 [facility] [address] [facility] [place] [id number] [address] [place] [address] Nov, Back pain M54.9 [facility] [address] [id number] [address] [place] [address] 24 Oct, 2016 Back pain M54.9 [facility] [address] [facility] [place] [id number] [address] [place] [address] 14 Oct, 2016 COPD (chronic obstructive pu lmonary disease) J44.9 [facility] [address] [id number] [address] [place] [address] 14 Oct, 2016 [facility] [address] [facility] [id number] [address] [place] [phone] Oct, Hypertension I10 ; Back pain M54.9 and Encounter for immunization Z23 [facility] [address] [id number] [address] [place] [phone] Sep, [facility] [address] [id number] [address] [place] [phone] Sep, Back pain M54.9 [facility] [address] [id number] [address] [place] [phone] Sep, Back pain M54.9 [facility] [address] [id number] [address] [place] [address] Aug, [facility] [address] [id number] [address] [place] [phone] Aug, Back pain M54.9 [facility] [address] [id number] [address] [place] [phone] Aug, [facility] [address] [id number] [address] [place] [address] Aug, [facility] [address] [id number] [address] [place] [phone] Aug, Back pain M54.9 [facility] [address] [id number] [address] [place] [phone] Jul, [facility] [address] [id number] [address] [place] [phone] Jul, Back pain M54.9 [facility] [address] [id number] [address] [place] [phone] Jun, Back pain M54.9 ; Hypertensi on I10 ; Generalized anxiety disorder F41.1 and Encounter for immunization Z23 [facility] [address] [id number] [address] [place] [phone] Jun, [facility] [address] [id number] [address] [place] [phone] May, [facility] [address] [id number] [address] [place] [phone] Apr, [facility] [address] [id number] [address] [place] [phone] Apr, [facility] [address] [id number] [address] [place] [phone] Mar, [facility] [address] [id number] [address] [place] [phone] Mar, [facility] [address] [id number] [address] [place] [phone] Mar, [facility] [address] [id number] [address] [place] [address] Feb, Back pain M54.9 and Hyperten madelyn I10 [facility] [address] [id number] [address] [place] [phone] Feb, Back pain M54.9 [facility] [address] [id number] [address] [place] [phone] Dec, COPD (chronic obstructive pu lmonary disease) J44.9 [facility] [address] [id number] [address] [place] [phone] Dec, [facility] [address] [id number] [address] [place] [phone] 18 Dec, 2015 Back pain M54.9 [facility] [address] [id number] [address] [place] [phone] 24 Nov, 2015 Back pain M54.9 [facility] [address] [id number] [address] [place] [phone] 14 Nov, 2015 COPD (chronic obstructive pu lmonary disease) J44.9 [facility] [address] [id number] [address] [place] [phone] 04 Nov, 2015 Hypertension I10 and Back pa in M54.9 [facility] [address] [id number] [address] [place] [phone] Oct, Hypertension I10 and Back pa in M54.9 [facility] [address] [id number] [address] [place] [phone] Oct, Back pain M54.9 [facility] [address] [id number] [address] [place] [phone] Sep, Back pain M54.9 [facility] [address] [id number] [address] [place] [phone] Sep, [facility] [address] [id number] [address] [place] [phone] Sep, [facility] [address] [id number] [address] [place] [phone] Sep, [facility] [address] [id number] [address] [place] [phone] Sep, [facility] [address] [id number] [address] [place] [phone] Aug, [facility] [address] [id number] [address] [place] [phone] Aug, [facility] [address] [id number] [address] [place] [phone] Aug, [facility] [address] [id number] [address] [place] [phone] Aug, [facility] [address] [id number] [address] [place] [phone] Aug, [facility] [address] [id number] [address] [place] [phone] Jul, [facility] [address] [id number] [address] [place] [phone] Jul, Back pain M54.9 ; Arthritis M19.90 ; Hypertension I10 and Encounter for immunization Z23 [facility] [address] [id number] [address] [place] [phone] Jul, Generalized anxiety disorder F41.1 and Depressive disorder, not elsewhere classified F32.9 [facility] [address] [id number] [address] [place] [phone] Jul, [facility] [address] [id number] [address] [place] [phone] Jul, [facility] [address] [id number] [address] [place] [phone] Jul, [facility] [address] [id number] [address] [place] [phone] Jun, [facility] [address] [id number] [address] [place] [phone] Jun, [facility] [address] [id number] [address] [place] [phone] May, [facility] [address] [id number] [address] [place] [phone] May, [facility] [address] [id number] [address] [place] [phone] May, [facility] [facility] [address] [id number] [address] [place] [address] May, [facility] [address] [id number] [address] [place] [address] May, Benign essential hypertensio n 401.1 ; Anxiety state, unspecified 300.00 ; Back pain 724.5 and Arthritis 716.90 [facility] [address] [id number] [address] [place] [address] May, [facility] [address] [id number] [address] [place] [address] Apr, [facility] [address] [id number] [address] [place] [address] Apr, [facility] [address] [id number] [address] [place] [address] Apr, [facility] [address] [id number] [address] [place] [address] Mar, [facility] [address] [id number] [address] [place] [address] Mar, [facility] [address] [id number] [address] [place] [address] Mar, [facility] [address] [id number] [address] [place] [address] Feb, High risk medication use V58 .69 [facility] [address] [id number] [address] [place] [address] Feb, Benign essential hypertensio n 401.1 ; Anxiety state, unspecified 300.00 and Chronic pain 338.29 [facility] [address] [id number] [address] [place] [address] Feb, [facility] [address] [id number] [address] [place] [address] January, [facility] [address] [id number] [address] [place] [address] January, [facility] [address] [id number] [address] [place] [address] January, [facility] [address] [id number] [address] [place] [address] January, [facility] [address] [id number] [address] [place] [address] Dec, [facility] [address] [id number] [address] [place] [address] Dec, [facility] [address] [id number] [address] [place] [address] Nov, [facility] [address] [id number] [address] [place] [address] Nov, [facility] [address] [id number] [address] [place] [address] Nov, [facility] [address] [id number] [address] [place] [address], [place] [address] Nov, [facility] [address] [id number] [address] [place] [address], [place] [address] Oct, [facility] [address] [id number] [address] [place] [address], [place] [address] Oct, [facility] [address] [id number] [address] [place] [address], [place] [address] Oct, [facility] [address] [id number] [address] [place] [address], [place] [address] Oct, [facility] [address] [id number] [address] [place] [address], [place] [address] Oct, [facility] [address] [id number] [address] [place] [address], [place] [address] Sep, [facility] [address] [id number] [address] [place] [address], [place] [address] Sep, [facility] [address] [id number] [address] [place] [address], [place] [address] Sep, [facility] [address] [id number] [address] [place] [address], [place] [address] Sep, [facility] [address] [id number] [address] [place] [address], [place] [address] Aug, [facility] [address] [id number] [address] [place] [address], [place] [address] Aug, [facility] [address] [id number] [address] [place] [address], [place] [address] Aug, [facility] [address] [id number] [address] [place] [address], [place] [address] Aug, [facility] [address] [id number] [address] [place] [address], [place] [address] Aug, [facility] [address] [id number] [address] [place] [address], [place] [address] Aug, [facility] [address] [id number] [address] [place] [address], [place] [address] Jul, [facility] [address] [id number] [address] [place] [address], [place] [address] Jul, [facility] [address] [id number] [address] [place] [address], [place] [address] Jun, [facility] [address] [id number] [address] [place] [address], [place] [address] Jun, [facility] [address] [id number] [address] [place] [address], [place] [address] Jun, [facility] [address] [id number] [address] [place] [address], [place] [address] Jun, [facility] [address] [id number] [address] [place] [address], [place] [address] May, [facility] [address] [id number] [address] [place] [address], [place] [address] May, [facility] [address] [id number] [address] [place] [address], [place] [address] May, [facility] [address] [id number] [address] [place] [address], [place] [address] May, [facility] [address] [id number] [address] [place] [address], [place] [address] Apr, [facility] [address] [id number] [address] [place] [address], [place] [address] Apr, [facility] [address] [id number] [address] [place] [address], [place] [address] Apr, [facility] [address] [id number] [address] [place] [address], [place] [address] Apr, [facility] [address] [id number] [address] [place] [address], [place] [address] Apr, [facility] [address] [id number] [address] [place] [address], [place] [address] Apr, [facility] [address] [id number] [address] [place] [address], [place] [address] Mar, [facility] [address] [id number] [address] [place] [address], [place] [address] Mar, [facility] [address] [id number] [address] [place] [address], [place] [address] Mar, [facility] [address] [id number] [address] [place] [address], [place] [address] Mar, [facility] [address] [id number] [address] [place] [address], [place] [address] Feb, [facility] [address] [id number] [address] [place] [address], [place] [address] Feb, [facility] [address] [id number] [address] [place] [address], [place] [address] Feb, [facility] [address] [id number] [address] [place] [address], [place] [address] January, [facility] [address] [id number] [address] [place] [address], [place] [address] January, [facility] [address] [id number] [address] [place] [address], [place] [address] January, [facility] [address] [id number] [address] [place] [address], [place] [address] January, [facility] [address] [id number] [address] [place] [address], [place] [address] January, [facility] [address] [id number] [address] [place] [address], [place] [address] January, [facility] [address] [id number] [address] [place] [address], [place] [address] January, [facility] [address] [id number] [facility] [place] [address] January, [facility] [address] [id number] [address] [place] [address], [place] [address] Dec, [facility] [address] [id number] [address] [place] [address], [place] [address] Dec, [facility] [address] [id number] [address] [place] [address], [place] [address] Dec, [facility] [address] [id number] [address] [place] [address], [place] [address] Dec, [facility] [address] [id number] [address] [place] [address], [place] [address] Dec, [facility] [address] [id number] [address] [place] [address], [place] [address] Dec, [facility] [address] [id number] [address] [place] [address], [place] [address] Dec, [facility] [address] [id number] [address] [place] [address], [place] [address] Nov, [facility] [address] [id number] [address] [place] [address], [place] [address] Nov, [facility] [address] [id number] [address] [place] [address], [place] [address] Nov, [facility] [address] [id number] [address] [place] [address], [place] [address] Nov, [facility] [address] [id number] [address] [place] [address], [place] [address] Nov, [facility] [address] [id number] [address] [place] [address], [place] [address] Nov, [facility] [address] [id number] [address] [place] [address], [place] [address] Nov, [facility] [address] [id number] [address] [place] [address], [place] [address] Nov, [facility] [address] [id number] [address] [place] [address], [place] [address] 07 Nov, 2013 [facility] [address] [id number] [address] [place] [address], [place] [address] 07 Nov, 2013 [facility] [address] [id number] [address] [place] [address], [place] [address] 07 Nov, 2013 [facility] [address] [id number] [address] [place] [address], [place] [address] Nov, [facility] [address] [id number] [address] [place] [address], [place] [address] Oct, [facility] [address] [id number] [address] [place] [address], [place] [address] 07 Oct, 2013 [facility] [address] [id number] [address] [place] [address], [place] [address] Sep, [facility] [address] [id number] [address] [place] [address], [place] [address] Sep, [facility] [address] [id number] [address] [place] [address], [place] [address] Sep, [facility] [address] [id number] [address] [place] [address], [place] [address] Sep, [facility] [address] [id number] [address] [place] [address], [place] [address] 13 Aug, 2013 [facility] [address] [id number] [address] [place] [address], [place] [address] 13 Aug, 2013 [facility] [address] [id number] [address] [place] [address], [place] [address] 15 Jul, 2013 [facility] [address] [id number] [address] [place] [address], [place] [address] 15 Jul, 2013 [facility] [address] [id number] [address] [place] [address], [place] [address] 15 Jul, 2013 [facility] [address] [id number] [address] [place] [address] [place] [address] 15 Jul, 2013 [facility] [address] [id number] [address] [place] [address], [place] [address] 28 Jun, 2013 [facility] [address] [id number] [address] [place] [address], [place] [address] 28 Jun, 2013 [facility] [address] [id number] [address] [place] [address], [place] [address] 18 Jun, 2013 [facility] [address] [id number] [address] [place] [address], [place] [address] 18 Jun, 2013 [facility] [address] [id number] [address] [place] [address], [place] [address] 14 Jun, 2013 [facility] [address] [id number] [address] [place] [address], [place] [address] 14 Jun, 2013 [facility] [address] [id number] [address] [place] [address], [place] [address] 20 May, 2013 [facility] [address] [id number] [address] [place] [address], [place] [address] 18 May, 2013 [facility] [address] [id number] [address] [place] [address], [place] [address] 16 May, 2013 [facility] [address] [id number] [address] [place] [address], [place] [address] Apr, [facility] [address] [id number] [address] [place] [address], [place] [address] Apr, [facility] [address] [id number] [address] [place] [address], [place] [address] Apr, [facility] [address] [id number] [address] [place] [address], [place] [address] Mar, [facility] [address] [id number] [address] [place] [address], [place] [address] Mar, [facility] [address] [id number] [address] [place] [address], [place] [address] Feb, [facility] [address] [id number] [address] [place] [address], [place] [address] Feb, [facility] [address] [id number] [address] [place] [address], [place] [address] 04 Feb, 2013 [facility] [address] [id number] [address] [place] [address], [place] [address] January, [facility] [address] [id number] [address] [place] [address], [place] [address] January, [facility] [address] [id number] [address] [place] [address], [place] [address] January, [facility] [address] [id number] [address] [place] [address], [place] [address] 15 Dec, 2012 [facility] [address] [id number] [address] [place] [address], [place] [address] Dec, [facility] [address] [id number] [address] [place] [address], [place] [address] 08 Dec, 2012 [facility] [address] [id number] [address] [place] [address], [place] [address] 19 Nov, 2012 [facility] [address] [id number] [address] [place] [address], [place] [address] 14 Nov, 2012 [facility] [address] [id number] [address] [place] [address], [place] [address] Nov, [facility] [address] [id number] [address] [place] [address], [place] [address] 18 Oct, 2012 [facility] [address] [id number] [address] [place] [address], [place] [address] 14 Oct, 2012 [facility] [address] [id number] [address] [place] [address], [place] [address] Sep, [facility] [address] [id number] [address] [place] [address], [place] [address] 24 Sep, 2012 [facility] [address] [id number] [address] [place] [address] Sep, [facility] [address] [id number] [address] [place] [address], [place] [address] Aug, [facility] [address] [id number] [address] [place] [address], [place] [address] Aug, [facility] [address] [id number] [address] [place] [address], [place] [address] Aug, [facility] [address] [id number] [address] [place] [address] Aug, [facility] [address] [id number] [address] [place] [address], [place] [address] Aug, [facility] [address] [id number] [address] [place] [address], [place] [address] Jul, [facility] [address] [id number] [address] [place] [address], [place] [address] Jul, [facility] [address] [id number] [address] [place] [address], [place] [address] Jul, [facility] [address] [id number] [address] [place] [address], [place] [address] Jul, [facility] [address] [id number] [address] [place] [address], [place] [address] Jul, [facility] [address] [id number] [address] [place] [address] Jul, [facility] [address] [id number] [address] [place] [address] Jun, [facility] [address] [id number] [address] [place] [address], [place] [address] Jun, [facility] [address] [id number] [address] [place] [address], [place] [address] Jun, [facility] [address] [id number] [address] [place] [address] Jun, [facility] [address] [id number] [address] [place] [address], [place] [address] 13 May, 2012 [facility] [address] [id number] [address] [place] [address], [place] [address] 06 May, 2012 [facility] [address] [id number] [address] [place] [address], [place] [address] 16 Apr, 2012 [facility] [address] [id number] [address] [place] [address], [place] [address] 15 Apr, 2012 [facility] [address] [id number] [address] [place] [address], [place] [address] 14 Apr, 2012 [facility] [address] [id number] [address] [place] [address], [place] [address] 17 Mar, 2012 [facility] [address] [id number] [address] [place] [address], [place] [address] 13 Mar, 2012 [facility] [address] [id number] [address] [place] [address], [place] [address] Feb, [facility] [address] [id number] [address] [place] [address], [place] [address] 24 Jan, 2012 [facility] [address] [id number] [address] [place] [address], [place] [address] January, [facility] [address] [id number] [address] [place] [address], [place] [address] Dec, [facility] [address] [id number] [address] [place] [address], [place] [address] Dec, [facility] [address] [id number] [address] [place] [address], [place] [address] Dec, [facility] [address] [id number] [address] [place] [address], [place] [address] Dec, [facility] [address] [id number] [address] [place] [address], [place] [address] 30 Nov, 2011 [facility] [address] [id number] [address] [place] [address], [place] [address] Nov, [facility] [address] [id number] [address] [place] [address], [place] [address] 15 Nov, 2011 [facility] [address] [id number] [address] [place] [address], [place] [address] 02 Nov, 2011 [facility] [address] [id number] [address] [place] [address], [place] [address] 14 Oct, 2011 [facility] [address] [id number] [address] [place] [address], [place] [address] 09 Oct, 2011 [facility] [address] [id number] [address] [place] [address], [place] [address] Sep, [facility] [address] [id number] [address] [place] [address], [place] [address] 30 Aug, 2011 [facility] [address] [id number] [address] [place] [address], [place] [address] Aug, [facility] [address] [id number] [address] [place] [address], [place] [address] Aug, [facility] [address] [id number] [address] [place] [address], [place] [address] Jul, [facility] [address] [id number] [address] [place] [address], [place] [address] Jul, [facility] [address] [id number] [address] [place] [address], [place] [address] Jul, [facility] [address] [id number] [address] [place] [address], [place] [address] 20 Jun, 2011 [facility] [address] [id number] [address] [place] [address], [place] [address] 14 Jun, 2011 [facility] [address] [id number] [address] [place] [address], [place] [address] 13 Jun, 2011 [facility] [address] [id number] [address] [place] [address], [place] [address] 13 Jun, 2011 [facility] [address] [id number] [address] [place] [id number] 19 May, 2011 [facility] [address] [id number] [address] [place] [id number] 17 Jan, 2011 [facility] [address] [id number] [address] [place] [id number] 28 Aug, 2010 [facility] [address] [id number] [address] [place] [phone] Aug, [facility] [address] [id number] [address] [place] [address] Aug, [facility] [address] [id number] [address] [place] [address] Aug, [facility] [address] [id number] [address] [place] [address] Jul, [facility] [address] [id number] [address] [place] [address] Jul, [facility] [address] [id number] [address] [place] [id number] 15 Jun, 2010 [facility] [address] [id number] [address] [place] [id number] 15 Jun, 2010 [facility] [address] [id number] [address] [place] [id number] 16 May, 2010 [facility] [address] [id number] [address] [place] [address] January, IMMUNIZATIONS No Known Immunizations SOCIAL HISTORY [...]
--- OUTSIDE RECORDS SUMMARY | 2020-02-13 16:26 | XMS REPORT ---
Author Author Cami GLEZ Organization [facility] Address [address] [place] [address] Care Team Providers [employer] Worker Name Role Phone DON GLEZ Unavailable PROBLEMS Type Condition ICD9-CM Code WNN32-CB Code Onset Dates Condition S tatus SNOMED Code Problem Hypertension I10 Active 0450892 3 Problem Generalized anxiety disorder F41.1 A ctive 36211402 Problem Depressive disorder, not elsewhere classified F32. 9 Active 20417867 Problem Basal cell carcinoma (BCC) of skin of right ear C4 4.212 Active 846793885 Problem Back pain M54.9 Active 029414297 Problem Skin ulcer of left foot with fat layer exposed L97 .522 Active 78902125 Problem Arthritis M19.90 Active 3219949 Problem COPD (chronic obstructive pulmonary disease) J44.9 Active 23366717 Problem Vitamin D deficiency E55.9 Active 16389018 Problem Lumbar radiculopathy M54.16 Active 278452464 Problem Venous insufficiency I87.2 Active [id number] ALLERGIES No Information ENCOUNTERS Encounter Location Date Diagnosis [place] [address] [facility] [id number] [address] [place] [phone] Feb, [facility] [address] [facility] [id number] [address] [place] [phone] 24 Dec, [address] [place] [id number] [address] Dec, [facility] [address] [facility] [id number] [address] [place] [phone] 14 Dec, 2019 Radiculopathy, lumbar region M54.[address] [id number] [address] Dec, Radiculopathy, lumbar region M54.16 [place] [address] [id number] [address] [place] [phone] 09 Dec, 2019 Lumbar radiculopathy M54.16 [facility] [address] [id number] [address] [place] [phone] 02 Dec, 2019 [facility] [address] [id number] [address] [place] [phone] 20 Nov, 2019 [facility] [address] [id number] [address] [place] [phone] 18 Nov, 2019 [facility] [address] [id number] [address] [place] [phone] 17 Nov, 2019 Weight loss R63.4 ; Skin ulc er of left foot with fat layer exposed L97.522 ; Basal cell carcinoma (BCC) of skin of right ear C44.212 ; Hypertension I10 and Lumbar radiculopathy M54.16 [facility] [address] [id number] [address] [place] [phone] 11 Nov, 2019 Back pain M54.9 and Radiculo peg, lumbar region M54.16 [facility] [address] [id number] [address] [place] [phone] 20 Oct, 2019 Radiculopathy, lumbar region M54.16 [facility] [address] [id number] [address] [place] [phone] 19 Oct, 2019 [facility] [address] [id number] [address] [place] [phone] Oct, Back pain M54.9 [facility] [address] [id number] [address] [place] [phone] 10 Oct, 2019 [facility] [address] [id number] [address] [place] [id number] 06 Oct, 2019 Skin sore L98.9 [facility] [address] [id number] [address] [place] [phone] Sep, Radiculopathy, lumbar region M54.16 [facility] [address] [id number] [address] [place] [phone] 15 Sep, 2019 Back pain M54.9 [facility] [address] [id number] [address] [place] [phone] 14 Sep, 2019 Generalized anxiety disorder F41.1 [facility] [address] [id number] [address] [place] [phone] 30 Aug, 2019 Radiculopathy, lumbar region M54.16 [facility] [address] [id number] [address] [place] [phone] Aug, Back pain M54.9 [facility] [address] [id number] [address] [place] [phone] Aug, Lumbar radiculopathy M54.16 ; Generalized anxiety disorder F41.1 and Drug-induced constipation K59.03 [facility] [address] [id number] [address] [place] [phone] Jul, Radiculopathy, lumbar region M54.16 [facility] [address] [id number] [address] [place] [phone] Jul, [facility] [address] [id number] [address] [place] [phone] Jul, [facility] [address] [id number] [address] [place] [phone] Jul, Back pain M54.9 [facility] [address] [id number] [address] [place] [phone] Jul, Radiculopathy, lumbar region M54.16 [facility] [address] [id number] [address] [place] [phone] Jul, Radiculopathy, lumbar region M54.16 [facility] [address] [id number] [address] [place] [phone] Jun, Back pain M54.9 [facility] [address] [id number] [address] [place] [phone] 09 Jun, 2019 [facility] [address] [id number] [address] [place] [phone] Jun, Radiculopathy, lumbar region M54.16 [facility] [address] [id number] [address] [place] [phone] 08 Jun, 2019 [facility] [address] [id number] [address] [place] [phone] 30 May, 2019 Back pain M54.9 [facility] [address] [id number] [address] [place] [phone] 27 May, 2019 Cellulitis of other specifie d site L03.818 ; Dermatitis L30.9 and Lumbar radiculopathy M54.16 [facility] [address] [id number] [address] [place] [phone] May, [facility] [address] [id number] [address] [place] [phone] May, Back pain M54.9 [facility] [address] [id number] [address] [place] [phone] 05 May, 2019 [facility] [address] [id number] [address] [place] [phone] 04 May, 2019 Back pain M54.9 [facility] [address] [id number] [address] [place] [phone] Apr, [facility] [address] [id number] [address] [place] [phone] Apr, Back pain M54.9 [facility] [address] [id number] [address] [place] [phone] Apr, Hyponatremia E87.1 [facility] [address] [id number] [address] [place] [phone] Apr, Hyponatremia E87.1 [facility] [address] [id number] [address] [place] [phone] Mar, Arthritis M19.90 ; Impacted cerumen of right ear H61.21 and Hypertension I10 [facility] [id number] [place] [id number] Mar, [facility] [address] [id number] [address] [place] [phone] Mar, Back pain M54.9 [facility] [address] [id number] [address] [place] [phone] Feb, Back pain M54.9 [facility] [address] [id number] [address] [place] [phone] Feb, [facility] [address] [id number] [address] [place] [phone] Feb, Dermatitis L30.9 [facility] [address] [id number] [address] [place] [phone] January, Dermatitis L30.9 [facility] [address] [id number] [address] [place] [phone] January, [facility] [address] [id number] [address] [place] [phone] January, Back pain M54.9 [facility] [address] [id number] [address] [place] [phone] Dec, [facility] [address] [id number] [address] [place] [phone] Dec, Back pain M54.9 [facility] [address] [id number] [address] [place] [phone] Dec, Lumbar radiculopathy M54.16 ; Arthritis M19.90 and Dyshydrosis L30.1 [facility] [address] [id number] [address] [place] [phone] Nov, Back pain M54.9 [facility] [address] [id number] [address] [place] [phone] Nov, [facility] [address] [id number] [address] [place] [phone] Oct, [facility] [address] [id number] [address] [place] [phone] Oct, Back pain M54.9 [facility] [address] [id number] [address] [place] [phone] Oct, [facility] [address] [id number] [address] [place] [phone] Oct, [facility] [address] [id number] [address] [place] [phone] Sep, Back pain M54.9 [facility] [address] [id number] [address] [place] [phone] Sep, [facility] [address] [id number] [address] [place] [phone] Aug, Back pain M54.9 [facility] [address] [id number] [address] [place] [phone] Aug, Encounter for immunization Z 23 ; Arthritis M19.90 and Generalized anxiety disorder F41.1 [facility] [address] [id number] [address] [place] [phone] Aug, [facility] [address] [id number] [address] [place] [phone] Aug, [facility] [address] [id number] [address] [place] [phone] Jul, Back pain M54.9 [facility] [address] [id number] [address] [place] [phone] Jul, [facility] [address] [id number] [address] [place] [id number] Jul, [facility] [address] [id number] [address] [place] [phone] Jun, Back pain M54.9 [facility] [address] [id number] [address] [place] [phone] Jun, [facility] [address] [id number] [address] [place] [phone] Jun, Back pain M54.9 [facility] [address] [id number] [address] [place] [phone] 11 May, 2018 Lumbar radiculopathy M54.16 ; Hypertension I10 and Generalized anxiety disorder F41.1 [facility] [address] [id number] [address] [place] [phone] 06 May, 2018 Back pain M54.9 [facility] [address] [id number] [address] [place] [phone] Apr, [facility] [address] [id number] [address] [place] [phone] Apr, [facility] [address] [id number] [address] [place] [phone] Apr, Back pain M54.9 [facility] [address] [id number] [address] [place] [phone] Mar, Back pain M54.9 [facility] [address] [id number] [address] [place] [phone] Feb, [facility] [address] [id number] [address] [place] [phone] Feb, [facility] [address] [id number] [address] [place] [phone] 15 Feb, 2018 [facility] [address] [id number] [address] [place] [phone] 14 Feb, 2018 Back pain M54.9 [facility] [address] [id number] [address] [place] [phone] Feb, Back pain M54.9 ; Hypertensi on I10 ; Generalized anxiety disorder F41.1 and Venous insufficiency I87.2 [facility] [address] [id number] [address] [place] [phone] January, [facility] [address] [id number] [address] [place] [phone] January, Back pain M54.9 [facility] [address] [id number] [address] [place] [phone] Dec, [facility] [address] [id number] [address] [place] [phone] Dec, Back pain M54.9 [facility] [address] [id number] [address] [place] [phone] Nov, Back pain M54.9 [facility] [address] [id number] [address] [place] [phone] Nov, [facility] [address] [id number] [address] [place] [phone] Nov, Lumbar radiculopathy M54.16 ; Hypertension I10 ; Arthritis M19.90 and Back pain M54.9 [facility] [address] [id number] [address] [place] [phone] Oct, Back pain M54.9 [facility] [address] [id number] [address] [place] [phone] Oct, [facility] [address] [id number] [address] [place] [phone] Sep, Back pain M54.9 [facility] [address] [id number] [address] [place] [phone] Sep, [facility] [address] [facility] [id number] [address] [place] [phone] Aug, Back pain M54.9 [facility] [address] [id number] [address] [place] [phone] Jul, Back pain M54.9 [facility] [address] [id number] [address] [place] [phone] Jul, Encounter for immunization Z 23 ; Back pain M54.9 ; Hypertension I10 and Lumbar radiculopathy M54.16 [facility] [address] [id number] [address] [place] [phone] Jul, Back pain M54.9 [facility] [address] [id number] [address] [place] [phone] Jun, Vitamin D deficiency E55.9 [facility] [address] [id number] [address] [place] [phone] Jun, Back pain M54.9 [facility] [address] [id number] [address] [place] [phone] May, [facility] [address] [id number] [address] [place] [phone] May, [facility] [address] [id number] [address] [place] [phone] May, [facility] [address] [id number] [address] [place] [phone] May, Back pain M54.9 [facility] [address] [id number] [address] [place] [phone] Apr, Back pain M54.9 ; Hypertensi on I10 ; Arthritis M19.90 and Generalized anxiety disorder F41.1 [facility] [address] [id number] [address] [place] [phone] Apr, Back pain M54.9 [facility] [address] [id number] [address] [place] [phone] Mar, Back pain M54.9 [facility] [address] [id number] [address] [place] [phone] Mar, Vitamin D deficiency E55.9 [facility] [address] [id number] [address] [place] [phone] 15 Feb, 2017 Vitamin D deficiency E55.9 [facility] [address] [id number] [address] [place] [phone] 14 Feb, 2017 Vitamin D deficiency E55.9 [facility] [address] [id number] [address] [place] [phone] 13 Feb, 2017 Back pain M54.9 [facility] [address] [id number] [address] [place] [phone] January, Back pain M54.9 [facility] [address] [id number] [address] [place] [phone] January, Arthritis M19.90 [facility] [address] [facility] [id number] [address] [place] [phone] January, Vitamin D deficiency E55.9 a nd Arthritis M19.90 [facility] [address] [facility] [id number] [address] [place] [phone] Dec, Medicare annual wellness vis it, initial Z00.00 and Encounter for immunization Z23 [facility] [address] [facility] [id number] [address] [place] [phone] Dec, Back pain M54.9 [facility] [address] [facility] [id number] [address] [place] [phone] Nov, Back pain M54.9 [facility] [address] [id number] [address] [place] [phone] 24 Oct, 2016 Back pain M54.9 [facility] [address] [facility] [id number] [address] [place] [phone] 14 Oct, 2016 COPD (chronic obstructive pu lmonary disease) J44.9 [facility] [address] [id number] [address] [place] [phone] 14 Oct, 2016 [facility] [address] [facility] [id number] [address] [place] [phone] Oct, Hypertension I10 ; Back pain M54.9 and Encounter for immunization Z23 [facility] [address] [id number] [address] [place] [phone] Sep, [facility] [address] [id number] [address] [place] [phone] Sep, Back pain M54.9 [facility] [address] [id number] [address] [place] [phone] Sep, Back pain M54.9 [facility] [address] [id number] [address] [place] [phone] Aug, [facility] [address] [id number] [address] [place] [phone] Aug, Back pain M54.9 [facility] [address] [id number] [address] [place] [phone] Aug, [facility] [address] [id number] [address] [place] [phone] Aug, [facility] [address] [id number] [address] [place] [phone] Aug, Back pain M54.9 [facility] [address] [id number] [address] [place] [phone] Jul, [facility] [address] [id number] [address] [place] [phone] Jul, Back pain M54.9 [facility] [address] [id number] [address] [place] [phone] Jun, Back pain M54.9 ; Hypertensi on I10 ; Generalized anxiety disorder F41.1 and Encounter for immunization Z23 [facility] [address] [id number] [address] [place] [phone] Jun, [facility] [address] [id number] [address] [place] [phone] May, [facility] [address] [id number] [address] [place] [phone] Apr, [facility] [address] [id number] [address] [place] [phone] Apr, [facility] [address] [id number] [address] [place] [phone] Mar, [facility] [address] [id number] [address] [place] [phone] Mar, [facility] [address] [id number] [address] [place] [phone] Mar, [facility] [address] [id number] [address] [place] [phone] Feb, Back pain M54.9 and Hyperten amdelyn I10 [facility] [address] [id number] [address] [place] [phone] Feb, Back pain M54.9 [facility] [address] [id number] [address] [place] [phone] Dec, COPD (chronic obstructive pu lmonary disease) J44.9 [facility] [address] [id number] [address] [place] [phone] Dec, [facility] [address] [id number] [address] [place] [id number] 18 Dec, 2015 Back pain M54.9 [facility] [address] [id number] [address] [place] [phone] 24 Nov, 2015 Back pain M54.9 [facility] [address] [id number] [address] [place] [phone] 14 Nov, 2015 COPD (chronic obstructive pu lmonary disease) J44.9 [facility] [address] [id number] [address] [place] [id number] 04 Nov, 2015 Hypertension I10 and Back pa in M54.9 [facility] [address] [id number] [address] [place] [phone] Oct, Hypertension I10 and Back pa in M54.9 [facility] [address] [id number] [address] [place] [phone] Oct, Back pain M54.9 [facility] [address] [id number] [address] [place] [phone] Sep, Back pain M54.9 [facility] [address] [id number] [address] [place] [phone] Sep, [facility] [address] [id number] [address] [place] [phone] Sep, [facility] [address] [id number] [address] [place] [phone] Sep, [facility] [address] [id number] [address] [place] [phone] Sep, [facility] [address] [id number] [address] [place] [phone] Aug, [facility] [address] [id number] [address] [place] [phone] Aug, [facility] [address] [id number] [address] [place] [phone] Aug, [facility] [address] [id number] [address] [place] [phone] Aug, [facility] [address] [id number] [address] [place] [id number] Aug, [facility] [address] [id number] [address] [place] [id number] Jul, [facility] [address] [id number] [address] [place] [phone] Jul, Back pain M54.9 ; Arthritis M19.90 ; Hypertension I10 and Encounter for immunization Z23 [facility] [address] [id number] [address] [place] [phone] Jul, Generalized anxiety disorder F41.1 and Depressive disorder, not elsewhere classified F32.9 [facility] [address] [id number] [address] [place] [phone] Jul, [facility] [address] [id number] [address] [place] [phone] Jul, [facility] [address] [id number] [address] [place] [phone] Jul, [facility] [address] [id number] [address] [place] [phone] Jun, [facility] [address] [id number] [address] [place] [phone] Jun, [facility] [address] [id number] [address] [place] [phone] May, [facility] [address] [id number] [address] [place] [phone] May, [facility] [address] [id number] [address] [place] [phone] May, [facility] [address] [id number] [address] [place] [phone] May, [facility] [address] [id number] [address] [place] [phone] May, Benign essential hypertensio n 401.1 ; Anxiety state, unspecified 300.00 ; Back pain 724.5 and Arthritis 716.90 [facility] [address] [id number] [address] [place] [phone] May, [facility] [address] [id number] [address] [place] [phone] Apr, [facility] [address] [id number] [address] [place] [id number] Apr, [facility] [address] [id number] [address] [place] [id number] Apr, [facility] [address] [id number] [address] [place] [id number] Mar, [facility] [address] [id number] [address] [place] [id number] Mar, [facility] [address] [id number] [address] [place] [id number] Mar, [facility] [address] [id number] [address] [place] [id number] Feb, High risk medication use V58 .69 [facility] [address] [id number] [address] [place] [id number] Feb, Benign essential hypertensio n 401.1 ; Anxiety state, unspecified 300.00 and Chronic pain 338.29 [facility] [address] [id number] [address] [place] [id number] Feb, [facility] [address] [id number] [address] [place] [id number] January, [facility] [address] [id number] [address] [place] [id number] January, [facility] [address] [id number] [address] [place] [id number] January, [facility] [address] [id number] [address] [place] [id number] January, [facility] [address] [id number] [address] [place] [id number] Dec, [facility] [address] [id number] [address] [place] [id number] Dec, [facility] [address] [id number] [address] [place] [id number] Nov, [facility] [address] [id number] [address] [place] [id number] Nov, [facility] [address] [id number] [address] [place] [id number] Nov, [facility] [address] [id number] [address] [place] [address], [place] [address] Nov, [facility] [address] [id number] [address] [place] [address], [place] [address] Oct, [facility] [address] [id number] [address] [place] [address], [place] [address] Oct, [facility] [address] [id number] [address] [place] [address], [place] [address] Oct, [facility] [address] [id number] [address] [place] [address], [place] [address] Oct, [facility] [address] [id number] [address] [place] [address], [place] [address] Oct, [facility] [address] [id number] [address] [place] [address], [place] [address] Sep, [facility] [address] [id number] [address] [place] [address], [place] [address] Sep, [facility] [address] [id number] [address] [place] [address], [place] [address] Sep, [facility] [address] [id number] [address] [place] [address], [place] [address] Sep, [facility] [address] [id number] [address] [place] [address], [place] [address] Aug, [facility] [address] [id number] [address] [place] [address], [place] [address] Aug, [facility] [address] [id number] [address] [place] [address], [place] [address] Aug, [facility] [address] [id number] [address] [place] [address], [place] [address] Aug, [facility] [address] [id number] [address] [place] [address], [place] [address] Aug, [facility] [address] [id number] [address] [place] [address], [place] [address] Aug, [facility] [address] [id number] [address] [place] [address], [place] [address] Jul, [facility] [address] [id number] [address] [place] [address], [place] [address] Jul, [facility] [address] [id number] [address] [place] [address], [place] [address] Jun, [facility] [address] [id number] [address] [place] [address], [place] [address] Jun, [facility] [address] [id number] [address] [place] [address], [place] [address] Jun, [facility] [address] [id number] [address] [place] [address], [place] [address] Jun, [facility] [address] [id number] [address] [place] [address], [place] [address] May, [facility] [address] [id number] [address] [place] [address], [place] [address] May, [facility] [address] [id number] [address] [place] [address], [place] [address] May, [facility] [address] [id number] [address] [place] [address], [place] [address] May, [facility] [address] [id number] [address] [place] [address], [place] [address] Apr, [facility] [address] [id number] [address] [place] [address], [place] [address] Apr, [facility] [address] [id number] [address] [place] [address], [place] [address] Apr, [facility] [address] [id number] [address] [place] [address], [place] [address] Apr, [facility] [address] [id number] [address] [place] [address], [place] [address] Apr, [facility] [address] [id number] [address] [place] [address], [place] [address] Apr, [facility] [address] [id number] [address] [place] [address], [place] [address] Mar, [facility] [address] [id number] [address] [place] [address], [place] [address] Mar, [facility] [address] [id number] [address] [place] [address], [place] [address] Mar, [facility] [address] [id number] [address] [place] [address], [place] [address] Mar, [facility] [address] [id number] [address] [place] [address], [place] [address] Feb, [facility] [address] [id number] [address] [place] [address], [place] [address] Feb, [facility] [address] [id number] [address] [place] [address], [place] [address] Feb, [facility] [address] [id number] [address] [place] [address], [place] [address] January, [facility] [address] [id number] [address] [place] [address], [place] [address] January, [facility] [address] [id number] [address] [place] [address], [place] [address] January, [facility] [address] [id number] [address] [place] [address], [place] [address] January, [facility] [address] [id number] [address] [place] [address], [place] [address] January, [facility] [address] [id number] [address] [place] [address], [place] [address] January, [facility] [address] [id number] [address] [place] [address], [place] [address] January, [facility] [address] [id number] [facility] [address] January, [facility] [address] [id number] [address] [place] [address], [place] [address] Dec, [facility] [address] [id number] [address] [place] [address], [place] [address] Dec, [facility] [address] [id number] [address] [place] [address], [place] [address] Dec, [facility] [address] [id number] [address] [place] [address], [place] [address] Dec, [facility] [address] [id number] [address] [place] [address], [place] [address] Dec, [facility] [address] [id number] [address] [place] [address], [place] [address] Dec, [facility] [address] [id number] [address] [place] [address], [place] [address] Dec, [facility] [address] [id number] [address] [place] [address], [place] [address] Nov, [facility] [address] [id number] [address] [place] [address], [place] [address] Nov, [facility] [address] [id number] [address] [place] [address], [place] [address] Nov, [facility] [address] [id number] [address] [place] [address], [place] [address] Nov, [facility] [address] [id number] [address] [place] [address], [place] [address] Nov, [facility] [address] [id number] [address] [place] [address], [place] [address] Nov, [facility] [address] [id number] [address] [place] [address], [place] [address] Nov, [facility] [address] [id number] [address] [place] [address], [place] [address] Nov, [facility] [address] [id number] [address] [place] [address], [place] [address] 07 Nov, 2013 [facility] [address] [id number] [address] [place] [address], [place] [address] 07 Nov, 2013 [facility] [address] [id number] [address] [place] [address], [place] [address] 07 Nov, 2013 [facility] [address] [id number] [address] [place] [address], [place] [address] Nov, [facility] [address] [id number] [address] [place] [address], [place] [address] Oct, [facility] [address] [id number] [address] [place] [address], [place] [address] 07 Oct, 2013 [facility] [address] [id number] [address] [place] [address], [place] [address] Sep, [facility] [address] [id number] [address] [place] [address], [place] [address] Sep, [facility] [address] [id number] [address] [place] [address], [place] [address] Sep, [facility] [address] [id number] [address] [place] [address], [place] [address] Sep, [facility] [address] [id number] [address] [place] [address], [place] [address] 13 Aug, 2013 [facility] [address] [id number] [address] [place] [address], [place] [address] 13 Aug, 2013 [facility] [address] [id number] [address] [place] [address], [place] [address] 15 Jul, 2013 [facility] [address] [id number] [address] [place] [address], [place] [address] 15 Jul, 2013 [facility] [address] [id number] [address] [place] [address], [place] [address] 15 Jul, 2013 [facility] [address] [id number] [address] [place] [address] [place] [address] 15 Jul, 2013 [facility] [address] [id number] [address] [place] [address], [place] [address] 28 Jun, 2013 [facility] [address] [id number] [address] [place] [address], [place] [address] 28 Jun, 2013 [facility] [address] [id number] [address] [place] [address], [place] [address] 18 Jun, 2013 [facility] [address] [id number] [address] [place] [address], [place] [address] 18 Jun, 2013 [facility] [address] [id number] [address] [place] [address], [place] [address] 14 Jun, 2013 [facility] [address] [id number] [address] [place] [address], [place] [address] 14 Jun, 2013 [facility] [address] [id number] [address] [place] [address], [place] [address] 20 May, 2013 [facility] [address] [id number] [address] [place] [address], [place] [address] 18 May, 2013 [facility] [address] [id number] [address] [place] [address], [place] [address] 16 May, 2013 [facility] [address] [id number] [address] [place] [address], [place] [address] Apr, [facility] [address] [id number] [address] [place] [address], [place] [address] Apr, [facility] [address] [id number] [address] [place] [address], [place] [address] Apr, [facility] [address] [id number] [address] [place] [address], [place] [address] Mar, [facility] [address] [id number] [address] [place] [address], [place] [address] Mar, [facility] [address] [id number] [address] [place] [address], [place] [address] Feb, [facility] [address] [id number] [address] [place] [address], [place] [address] Feb, [facility] [address] [id number] [address] [place] [address], [place] [address] 04 Feb, 2013 [facility] [address] [id number] [address] [place] [address], [place] [address] January, [facility] [address] [id number] [address] [place] [address], [place] [address] January, [facility] [address] [id number] [address] [place] [address], [place] [address] January, [facility] [address] [id number] [address] [place] [address], [place] [address] 15 Dec, [address] [facility] [address] [id number] [address] [place] [address], [place] [address] Dec, [facility] [address] [id number] [address] [place] [address], [place] [address] 08 Dec, [address] [facility] [address] [id number] [address] [place] [address], [place] [address] 19 Nov, 2012 [facility] [address] [id number] [address] [place] [address], [place] [address] 14 Nov, 2012 [facility] [address] [id number] [address] [place] [address], [place] [address] Nov, [facility] [address] [id number] [address] [place] [address], [place] [address] 18 Oct, 2012 [facility] [address] [id number] [address] [place] [address], [place] [address] 14 Oct, 2012 [facility] [address] [id number] [address] [place] [address], [place] [address] Sep, [facility] [address] [id number] [address] [place] [address], [place] [address] 24 Sep, 2012 [facility] [address] [id number] [address] [address] Sep, [facility] [address] [id number] [address] [place] [address], [place] [address] Aug, [facility] [address] [id number] [address] [place] [address], [place] [address] Aug, [facility] [address] [id number] [address] [place] [address], [place] [address] Aug, [facility] [address] [id number] [address] [place] [address] Aug, [facility] [address] [id number] [address] [place] [address], [place] [address] Aug, [facility] [address] [id number] [address] [place] [address], [place] [address] Jul, [facility] [address] [id number] [address] [place] [address], [place] [address] Jul, [facility] [address] [id number] [address] [place] [address], [place] [address] Jul, [facility] [address] [id number] [address] [place] [address], [place] [address] Jul, [facility] [address] [id number] [address] [place] [address], [place] [address] Jul, [facility] [address] [id number] [address] [place] [address] Jul, [facility] [address] [id number] [address] [place] [address] Jun, [facility] [address] [id number] [address] [place] [address], [place] [address] Jun, [facility] [address] [id number] [address] [place] [address], [place] [address] Jun, [facility] [address] [id number] [address] [place] [address] Jun, [facility] [address] [id number] [address] [place] [address], [place] [address] 13 May, 2012 [facility] [address] [id number] [address] [place] [address], [place] [address] 06 May, 2012 [facility] [address] [id number] [address] [place] [address], [place] [address] 16 Apr, 2012 [facility] [address] [id number] [address] [place] [address], [place] [address] 15 Apr, 2012 [facility] [address] [id number] [address] [place] [address], [place] [address] 14 Apr, 2012 [facility] [address] [id number] [address] [place] [address], [place] [address] 17 Mar, 2012 [facility] [address] [id number] [address] [place] [address], [place] [address] 13 Mar, 2012 [facility] [address] [id number] [address] [place] [address], [place] [address] Feb, [facility] [address] [id number] [address] [place] [address], [place] [address] 24 Jan, 2012 [facility] [address] [id number] [address] [place] [address], [place] [address] January, [facility] [address] [id number] [address] [place] [address], [place] [address] Dec, [facility] [address] [id number] [address] [place] [address], [place] [address] Dec, [facility] [address] [id number] [address] [place] [address], [place] [address] Dec, [facility] [address] [id number] [address] [place] [address], [place] [address] Dec, [facility] [address] [id number] [address] [place] [address], [place] [address] 30 Nov, 2011 [facility] [address] [id number] [address] [place] [address], [place] [address] Nov, [facility] [address] [id number] [address] [place] [address], [place] [address] 15 Nov, 2011 [facility] [address] [id number] [address] [place] [address], [place] [address] 02 Nov, 2011 [facility] [address] [id number] [address] [place] [address], [place] [address] 14 Oct, 2011 [facility] [address] [id number] [address] [place] [address], [place] [address] 09 Oct, 2011 [facility] [address] [id number] [address] [place] [address], [place] [address] Sep, [facility] [address] [id number] [address] [place] [address], [place] [address] 30 Aug, 2011 [facility] [address] [id number] [address] [place] [address], [place] [address] Aug, [facility] [address] [id number] [address] [place] [address], [place] [address] Aug, [facility] [address] [id number] [address] [place] [address], [place] [id number] Jul, [facility] [address] [id number] [address] [place] [address], [place] [id number] Jul, [facility] [address] [id number] [address] [place] [address], [place] [id number] Jul, [facility] [address] [id number] [address] [place] [address], [place] [id number] 20 Jun, 2011 [facility] [address] [id number] [address] [place] [address], [place] [id number] 14 Jun, 2011 [facility] [address] [id number] [address] [place] [address], [place] [id number] 13 Jun, 2011 [facility] [address] [id number] [address] [place] [address], [place] [id number] 13 Jun, 2011 [facility] [address] [id number] [address] [place] [id number] 19 May, 2011 [facility] [address] [id number] [address] [place] [id number] 17 Jan, 2011 [facility] [address] [id number] [address] [place] [phone] 28 Aug, 2010 [facility] [address] [id number] [address] [place] [phone] Aug, [facility] [address] [id number] [address] [place] [phone] Aug, [facility] [address] [id number] [address] [place] [phone] Aug, [facility] [address] [id number] [address] [place] [id number] Jul, [facility] [address] [id number] [address] [place] [phone] Jul, [facility] [address] [id number] [address] [place] [id number] 15 Jun, 2010 [facility] [address] [id number] [address] [place] [id number] 15 Jun, 2010 [facility] [address] [id number] [address] [place] [phone] 16 May, 2010 [facility] [address] [id number] [address] [place] [phone] January, IMMUNIZATIONS No Known Immunizations SOCIAL HISTORY [...]
--- OUTSIDE RECORDS SUMMARY | 2020-02-13 16:26 | XMS REPORT ---
Author Author Cami GLEZ Organization [facility] Address [address] [place] [address] Care Team Providers Care Imaging Manager Name Role Phone DON GLEZ Unavailable PROBLEMS Type Condition ICD9-CM Code VBD93-XI Code Onset Dates Condition S tatus SNOMED Code Problem Hypertension I10 Active 6464217 3 Problem Generalized anxiety disorder F41.1 A ctive 02801744 Problem Depressive disorder, not elsewhere classified F32. 9 Active 28260139 Problem Basal cell carcinoma (BCC) of skin of right ear C4 4.212 Active 627250237 Problem Back pain M54.9 Active 177590608 Problem Skin ulcer of left foot with fat layer exposed L97 .522 Active 84334647 Problem Arthritis M19.90 Active 0253014 Problem COPD (chronic obstructive pulmonary disease) J44.9 Active 65561592 Problem Vitamin D deficiency E55.9 Active 32296350 Problem Lumbar radiculopathy M54.16 Active 155777818 Problem Venous insufficiency I87.2 Active 60282279 ALLERGIES No Information ENCOUNTERS Encounter Location Date Diagnosis [place] [address] [facility] [id number] [address] [place] [id number] Feb, [facility] [address] [facility] [id number] [address] [place] [id number] 24 Dec, [address] [id number] [address] Dec, [facility] [address] [facility] [id number] [address] [place] [phone] 14 Dec, 2019 Radiculopathy, lumbar region M54.[address] [id number] [address] Dec, Radiculopathy, lumbar region M54.16 [place] [address] [id number] [address] [place] [id number] 09 Dec, 2019 Lumbar radiculopathy M54.16 [facility] [address] [id number] [address] [place] [phone] 02 Dec, 2019 [facility] [address] [id number] [address] [place] [phone] 20 Nov, 2019 [facility] [address] [id number] [address] [place] [phone] 18 Nov, 2019 [facility] [address] [id number] [address] [place] [address] 17 Nov, 2019 Weight loss R63.4 ; Skin ulc er of left foot with fat layer exposed L97.522 ; Basal cell carcinoma (BCC) of skin of right ear C44.212 ; Hypertension I10 and Lumbar radiculopathy M54.16 [facility] [address] [id number] [address] [place] [address] 11 Nov, 2019 Back pain M54.9 and Radiculo peg, lumbar region M54.16 [facility] [address] [id number] [address] [place] [id number] 20 Oct, 2019 Radiculopathy, lumbar region M54.16 [facility] [address] [id number] [address] [place] [phone] 19 Oct, 2019 [facility] [address] [id number] [address] [place] [id number] Oct, Back pain M54.9 [facility] [address] [id number] [address] [place] [phone] 10 Oct, 2019 [facility] [address] [id number] [address] [place] [phone] 06 Oct, 2019 Skin sore L98.9 [facility] [address] [id number] [address] [place] [address] Sep, Radiculopathy, lumbar region M54.16 [facility] [address] [id number] [address] [place] [id number] 15 Sep, 2019 Back pain M54.9 [facility] [address] [id number] [address] [place] [id number] 14 Sep, 2019 Generalized anxiety disorder F41.1 [facility] [address] [id number] [address] [place] [address] 30 Aug, 2019 Radiculopathy, lumbar region M54.16 [facility] [address] [id number] [address] [place] [address] Aug, Back pain M54.9 [facility] [address] [id number] [address] [place] [phone] Aug, Lumbar radiculopathy M54.16 ; Generalized anxiety disorder F41.1 and Drug-induced constipation K59.03 [facility] [address] [id number] [address] [place] [id number] Jul, Radiculopathy, lumbar region M54.16 [facility] [address] [id number] [address] [place] [phone] Jul, [facility] [address] [id number] [address] [place] [id number] Jul, [facility] [address] [id number] [address] [place] [id number] Jul, Back pain M54.9 [facility] [address] [id number] [address] [place] [address] Jul, Radiculopathy, lumbar region M54.16 [facility] [address] [id number] [address] [place] [id number] Jul, Radiculopathy, lumbar region M54.16 [facility] [address] [id number] [address] [place] [address] Jun, Back pain M54.9 [facility] [address] [id number] [address] [place] [id number] 09 Jun, 2019 [facility] [address] [id number] [address] [place] [address] Jun, Radiculopathy, lumbar region M54.16 [facility] [address] [id number] [address] [place] [address] 08 Jun, 2019 [facility] [address] [id number] [address] [place] [address] 30 May, 2019 Back pain M54.9 [facility] [address] [id number] [address] [place] [address] 27 May, 2019 Cellulitis of other specifie d site L03.818 ; Dermatitis L30.9 and Lumbar radiculopathy M54.16 [facility] [address] [id number] [address] [place] [phone] May, [facility] [address] [id number] [address] [place] [address] May, Back pain M54.9 [facility] [address] [id number] [address] [place] [id number] 05 May, 2019 [facility] [address] [id number] [address] [place] [address] 04 May, 2019 Back pain M54.9 [facility] [address] [id number] [address] [place] [address] Apr, [facility] [address] [id number] [address] [place] [address] Apr, Back pain M54.9 [facility] [address] [id number] [address] [place] [address] Apr, Hyponatremia E87.1 [facility] [address] [id number] [address] [place] [address] Apr, Hyponatremia E87.1 [facility] [address] [id number] [address] [place] [address] Mar, Arthritis M19.90 ; Impacted cerumen of right ear H61.21 and Hypertension I10 [facility] [id number] [place] [id number] Mar, [facility] [address] [id number] [address] [place] [address] Mar, Back pain M54.9 [facility] [address] [id number] [address] [place] [phone] Feb, Back pain M54.9 [facility] [address] [id number] [address] [place] [phone] Feb, [facility] [address] [id number] [address] [place] [id number] Feb, Dermatitis L30.9 [facility] [address] [id number] [address] [place] [phone] January, Dermatitis L30.9 [facility] [address] [id number] [address] [place] [address] January, [facility] [address] [id number] [address] [place] [address] January, Back pain M54.9 [facility] [address] [id number] [address] [place] [address] Dec, [facility] [address] [id number] [address] [place] [address] Dec, Back pain M54.9 [facility] [address] [id number] [address] [place] [address] Dec, Lumbar radiculopathy M54.16 ; Arthritis M19.90 and Dyshydrosis L30.1 [facility] [address] [id number] [address] [place] [address] Nov, Back pain M54.9 [facility] [address] [id number] [address] [place] [address] Nov, [facility] [address] [id number] [address] [place] [phone] Oct, [facility] [address] [id number] [address] [place] [address] Oct, Back pain M54.9 [facility] [address] [id number] [address] [place] [phone] Oct, [facility] [address] [id number] [address] [place] [address] Oct, [facility] [address] [id number] [address] [place] [id number] Sep, Back pain M54.9 [facility] [address] [id number] [address] [place] [phone] Sep, [facility] [address] [id number] [address] [place] [phone] Aug, Back pain M54.9 [facility] [address] [id number] [address] [place] [address] Aug, Encounter for immunization Z 23 ; Arthritis M19.90 and Generalized anxiety disorder F41.1 [facility] [address] [id number] [address] [place] [phone] Aug, [facility] [address] [id number] [address] [place] [phone] Aug, [facility] [address] [id number] [address] [place] [phone] Jul, Back pain M54.9 [facility] [address] [id number] [address] [place] [id number] Jul, [facility] [address] [id number] [address] [place] [phone] Jul, [facility] [address] [id number] [address] [place] [id number] Jun, Back pain M54.9 [facility] [address] [id number] [address] [place] [id number] Jun, [facility] [address] [id number] [address] [place] [id number] Jun, Back pain M54.9 [facility] [address] [id number] [address] [place] [address] 11 May, 2018 Lumbar radiculopathy M54.16 ; Hypertension I10 and Generalized anxiety disorder F41.1 [facility] [address] [id number] [address] [place] [phone] 06 May, 2018 Back pain M54.9 [facility] [address] [id number] [address] [place] [phone] Apr, [facility] [address] [id number] [address] [place] [phone] Apr, [facility] [address] [id number] [address] [place] [address] Apr, Back pain M54.9 [facility] [address] [id number] [address] [place] [id number] Mar, Back pain M54.9 [facility] [address] [id number] [address] [place] [phone] Feb, [facility] [address] [id number] [address] [place] [phone] Feb, [facility] [address] [id number] [address] [place] [phone] 15 Feb, 2018 [facility] [address] [id number] [address] [place] [address] 14 Feb, 2018 Back pain M54.9 [facility] [address] [id number] [address] [place] [id number] Feb, Back pain M54.9 ; Hypertensi on I10 ; Generalized anxiety disorder F41.1 and Venous insufficiency I87.2 [facility] [address] [id number] [address] [place] [address] January, [facility] [address] [id number] [address] [place] [phone] January, Back pain M54.9 [facility] [address] [id number] [address] [place] [id number] Dec, [facility] [address] [id number] [address] [place] [address] Dec, Back pain M54.9 [facility] [address] [id number] [address] [place] [address] Nov, Back pain M54.9 [facility] [address] [id number] [address] [place] [address] Nov, [facility] [address] [id number] [address] [place] [address] Nov, Lumbar radiculopathy M54.16 ; Hypertension I10 ; Arthritis M19.90 and Back pain M54.9 [facility] [address] [id number] [address] [place] [phone] Oct, Back pain M54.9 [facility] [address] [id number] [address] [place] [address] Oct, [facility] [address] [id number] [address] [place] [address] Sep, Back pain M54.9 [facility] [address] [id number] [address] [place] [address] Sep, [facility] [address] [facility] [id number] [address] [place] [phone] Aug, Back pain M54.9 [facility] [address] [id number] [address] [place] [address] Jul, Back pain M54.9 [facility] [address] [id number] [address] [place] [phone] Jul, Encounter for immunization Z 23 ; Back pain M54.9 ; Hypertension I10 and Lumbar radiculopathy M54.16 [facility] [address] [id number] [address] [place] [address] Jul, Back pain M54.9 [facility] [address] [id number] [address] [place] [phone] Jun, Vitamin D deficiency E55.9 [facility] [address] [id number] [address] [place] [address] Jun, Back pain M54.9 [facility] [address] [id number] [address] [place] [address] May, [facility] [address] [id number] [address] [place] [address] May, [facility] [address] [id number] [address] [place] [phone] May, [facility] [address] [id number] [address] [place] [address] May, Back pain M54.9 [facility] [address] [id number] [address] [place] [address] Apr, Back pain M54.9 ; Hypertensi on I10 ; Arthritis M19.90 and Generalized anxiety disorder F41.1 [facility] [address] [id number] [address] [place] [address] Apr, Back pain M54.9 [facility] [address] [id number] [address] [place] [address] Mar, Back pain M54.9 [facility] [address] [id number] [address] [place] [address] Mar, Vitamin D deficiency E55.9 [facility] [address] [id number] [address] [place] [id number] 15 Feb, 2017 Vitamin D deficiency E55.9 [facility] [address] [id number] [address] [place] [address] 14 Feb, 2017 Vitamin D deficiency E55.9 [facility] [address] [id number] [address] [place] [address] 13 Feb, 2017 Back pain M54.9 [facility] [address] [id number] [address] [place] [address] January, Back pain M54.9 [facility] [address] [id number] [address] [place] [address] January, Arthritis M19.90 [facility] [address] [facility] [id number] [address] [place] [address] January, Vitamin D deficiency E55.9 a nd Arthritis M19.90 [facility] [address] [facility] [id number] [address] [place] [address] Dec, Medicare annual wellness vis it, initial Z00.00 and Encounter for immunization Z23 [facility] [address] [facility] [id number] [address] [place] [address] Dec, Back pain M54.9 [facility] [address] [facility] [id number] [address] [place] [address] Nov, Back pain M54.9 [facility] [address] [id number] [address] [place] [address] 24 Oct, 2016 Back pain M54.9 [facility] [address] [facility] [id number] [address] [place] [phone] 14 Oct, 2016 COPD (chronic obstructive pu lmonary disease) J44.9 [facility] [address] [id number] [address] [place] [address] 14 Oct, 2016 [facility] [address] [facility] [id number] [address] [place] [phone] Oct, Hypertension I10 ; Back pain M54.9 and Encounter for immunization Z23 [facility] [address] [id number] [address] [place] [address] Sep, [facility] [address] [id number] [address] [place] [address] Sep, Back pain M54.9 [facility] [address] [id number] [address] [place] [phone] Sep, Back pain M54.9 [facility] [address] [id number] [address] [place] [address] Aug, [facility] [address] [id number] [address] [place] [address] Aug, Back pain M54.9 [facility] [address] [id number] [address] [place] [address] Aug, [facility] [address] [id number] [address] [place] [id number] Aug, [facility] [address] [id number] [address] [place] [address] Aug, Back pain M54.9 [facility] [address] [id number] [address] [place] [address] Jul, [facility] [address] [id number] [address] [place] [id number] Jul, Back pain M54.9 [facility] [address] [id number] [address] [place] [address] Jun, Back pain M54.9 ; Hypertensi on I10 ; Generalized anxiety disorder F41.1 and Encounter for immunization Z23 [facility] [address] [id number] [address] [place] [address] Jun, [facility] [address] [id number] [address] [place] [address] May, [facility] [address] [id number] [address] [place] [phone] Apr, [facility] [address] [id number] [address] [place] [phone] Apr, [facility] [address] [id number] [address] [place] [address] Mar, [facility] [address] [id number] [address] [place] [address] Mar, [facility] [address] [id number] [address] [place] [phone] Mar, [facility] [address] [id number] [address] [place] [address] Feb, Back pain M54.9 and Hyperten madelyn I10 [facility] [address] [id number] [address] [place] [address] Feb, Back pain M54.9 [facility] [address] [id number] [address] [place] [phone] Dec, COPD (chronic obstructive pu lmonary disease) J44.9 [facility] [address] [id number] [address] [place] [address] Dec, [facility] [address] [id number] [address] [place] [address] 18 Dec, 2015 Back pain M54.9 [facility] [address] [id number] [address] [place] [id number] 24 Nov, 2015 Back pain M54.9 [facility] [address] [id number] [address] [place] [id number] 14 Nov, 2015 COPD (chronic obstructive pu lmonary disease) J44.9 [facility] [address] [id number] [address] [place] [address] 04 Nov, 2015 Hypertension I10 and Back pa in M54.9 [facility] [address] [id number] [address] [place] [address] Oct, Hypertension I10 and Back pa in M54.9 [facility] [address] [id number] [address] [place] [id number] Oct, Back pain M54.9 [facility] [address] [id number] [address] [place] [id number] Sep, Back pain M54.9 [facility] [address] [id number] [address] [place] [id number] Sep, [facility] [address] [id number] [address] [place] [id number] Sep, [facility] [address] [id number] [address] [place] [address] Sep, [facility] [address] [id number] [address] [place] [phone] Sep, [facility] [address] [id number] [address] [place] [address] Aug, [facility] [address] [id number] [address] [place] [phone] Aug, [facility] [address] [id number] [address] [place] [id number] Aug, [facility] [address] [id number] [address] [place] [phone] Aug, [facility] [address] [id number] [address] [place] [id number] Aug, [facility] [address] [id number] [address] [place] [id number] Jul, [facility] [address] [id number] [address] [place] [address] Jul, Back pain M54.9 ; Arthritis M19.90 ; Hypertension I10 and Encounter for immunization Z23 [facility] [address] [id number] [address] [place] [id number] Jul, Generalized anxiety disorder F41.1 and Depressive disorder, not elsewhere classified F32.9 [facility] [address] [id number] [address] [place] [phone] Jul, [facility] [address] [id number] [address] [place] [id number] Jul, [facility] [address] [id number] [address] [place] [id number] Jul, [facility] [address] [id number] [address] [place] [phone] Jun, [facility] [address] [id number] [address] [place] [phone] Jun, [facility] [address] [id number] [address] [place] [phone] May, [facility] [address] [id number] [address] [place] [phone] May, [facility] [address] [id number] [address] [place] [phone] May, [facility] [address] [id number] [address] [place] [id number] May, [facility] [address] [id number] [address] [place] [phone] May, Benign essential hypertensio n 401.1 ; Anxiety state, unspecified 300.00 ; Back pain 724.5 and Arthritis 716.90 [facility] [address] [id number] [address] [place] [phone] May, [facility] [address] [id number] [address] [place] [phone] Apr, [facility] [address] [id number] [address] [place] [phone] Apr, [facility] [address] [id number] [address] [place] [phone] Apr, [facility] [address] [id number] [address] [place] [phone] Mar, [facility] [address] [id number] [address] [place] [phone] Mar, [facility] [address] [id number] [address] [place] [id number] Mar, [facility] [address] [id number] [address] [place] [id number] Feb, High risk medication use V58 .69 [facility] [address] [id number] [address] [place] [phone] Feb, Benign essential hypertensio n 401.1 ; Anxiety state, unspecified 300.00 and Chronic pain 338.29 [facility] [address] [id number] [address] [place] [address] Feb, [facility] [address] [id number] [address] [place] [address] January, [facility] [address] [id number] [address] [place] [address] January, [facility] [address] [id number] [address] [place] [address] January, [facility] [address] [id number] [address] [place] [address] January, [facility] [address] [id number] [address] [place] [address] Dec, [facility] [address] [id number] [address] [place] [address] Dec, [facility] [address] [id number] [address] [place] [address] Nov, [facility] [address] [id number] [address] [place] [address] Nov, [facility] [address] [id number] [address] [place] [id number] Nov, [facility] [address] [id number] [address] [place] [address], [place] [address] Nov, [facility] [address] [id number] [address] [place] [address], [place] [address] Oct, [facility] [address] [id number] [address] [place] [address], [place] [address] Oct, [facility] [address] [id number] [address] [place] [address], [place] [address] Oct, [facility] [address] [id number] [address] [place] [address], [place] [address] Oct, [facility] [address] [id number] [address] [place] [address], [place] [address] Oct, [facility] [address] [id number] [address] [place] [address], [place] [address] Sep, [facility] [address] [id number] [address] [place] [address], [place] [address] Sep, [facility] [address] [id number] [address] [place] [address], [place] [address] Sep, [facility] [address] [id number] [address] [place] [address], [place] [address] Sep, [facility] [address] [id number] [address] [place] [address], [place] [address] Aug, [facility] [address] [id number] [address] [place] [address], [place] [address] Aug, [facility] [address] [id number] [address] [place] [address], [place] [address] Aug, [facility] [address] [id number] [address] [place] [address], [place] [address] Aug, [facility] [address] [id number] [address] [place] [address], [place] [address] Aug, [facility] [address] [id number] [address] [place] [address], [place] [address] Aug, [facility] [address] [id number] [address] [place] [address], [place] [address] Jul, [facility] [address] [id number] [address] [place] [address], [place] [address] Jul, [facility] [address] [id number] [address] [place] [address], [place] [address] Jun, [facility] [address] [id number] [address] [place] [address], [place] [address] Jun, [facility] [address] [id number] [address] [place] [address], [place] [address] Jun, [facility] [address] [id number] [address] [place] [address], [place] [address] Jun, [facility] [address] [id number] [address] [place] [address], [place] [address] May, [facility] [address] [id number] [address] [place] [address], [place] [address] May, [facility] [address] [id number] [address] [place] [address], [place] [address] May, [facility] [address] [id number] [address] [place] [address], [place] [address] May, [facility] [address] [id number] [address] [place] [address], [place] [address] Apr, [facility] [address] [id number] [address] [place] [address], [place] [address] Apr, [facility] [address] [id number] [address] [place] [address], [place] [address] Apr, [facility] [address] [id number] [address] [place] [address], [place] [address] Apr, [facility] [address] [id number] [address] [place] [address], [place] [address] Apr, [facility] [address] [id number] [address] [place] [address], [place] [address] Apr, [facility] [address] [id number] [address] [place] [address], [place] [address] Mar, [facility] [address] [id number] [address] [place] [address], [place] [address] Mar, [facility] [address] [id number] [address] [place] [address], [place] [address] Mar, [facility] [address] [id number] [address] [place] [address], [place] [address] Mar, [facility] [address] [id number] [address] [place] [address], [place] [address] Feb, [facility] [address] [id number] [address] [place] [address], [place] [address] Feb, [facility] [address] [id number] [address] [place] [address], [place] [address] Feb, [facility] [address] [id number] [address] [place] [address], [place] [address] January, [facility] [address] [id number] [address] [place] [address], [place] [address] January, [facility] [address] [id number] [address] [place] [address], [place] [address] January, [facility] [address] [id number] [address] [place] [address], [place] [address] January, [facility] [address] [id number] [address] [place] [address], [place] [address] January, [facility] [address] [id number] [address] [place] [address], [place] [address] January, [facility] [address] [id number] [address] [place] [address], [place] [address] January, [facility] [address] [id number] [facility] [place] [address] January, [facility] [address] [id number] [address] [place] [address], [place] [address] Dec, [facility] [address] [id number] [address] [place] [address], [place] [address] Dec, [facility] [address] [id number] [address] [place] [address], [place] [address] Dec, [facility] [address] [id number] [address] [place] [address], [place] [address] Dec, [facility] [address] [id number] [address] [place] [address], [place] [address] Dec, [facility] [address] [id number] [address] [place] [address], [place] [address] Dec, [facility] [address] [id number] [address] [place] [address], [place] [address] Dec, [facility] [address] [id number] [address] [place] [address], [place] [address] Nov, [facility] [address] [id number] [address] [place] [address], [place] [address] Nov, [facility] [address] [id number] [address] [place] [address], [place] [address] Nov, [facility] [address] [id number] [address] [place] [address], [place] [address] Nov, [facility] [address] [id number] [address] [place] [address], [place] [address] Nov, [facility] [address] [id number] [address] [place] [address], [place] [address] Nov, [facility] [address] [id number] [address] [place] [address], [place] [address] Nov, [facility] [address] [id number] [address] [place] [address], [place] [address] Nov, [facility] [address] [id number] [address] [place] [address], [place] [address] 07 Nov, 2013 [facility] [address] [id number] [address] [place] [address], [place] [address] 07 Nov, 2013 [facility] [address] [id number] [address] [place] [address], [place] [address] 07 Nov, 2013 [facility] [address] [id number] [address] [place] [address], [place] [address] Nov, [facility] [address] [id number] [address] [place] [address], [place] [address] Oct, [facility] [address] [id number] [address] [place] [address], [place] [address] 07 Oct, 2013 [facility] [address] [id number] [address] [place] [address], [place] [address] Sep, [facility] [address] [id number] [address] [place] [address], [place] [address] Sep, [facility] [address] [id number] [address] [place] [address], [place] [address] Sep, [facility] [address] [id number] [address] [place] [address], [place] [address] Sep, [facility] [address] [id number] [address] [place] [address], [place] [address] 13 Aug, 2013 [facility] [address] [id number] [address] [place] [address], [place] [address] 13 Aug, 2013 [facility] [address] [id number] [address] [place] [address], [place] [address] 15 Jul, 2013 [facility] [address] [id number] [address] [place] [address], [place] [address] 15 Jul, 2013 [facility] [address] [id number] [address] [place] [address], [place] [address] 15 Jul, 2013 [facility] [address] [id number] [address] [place] [address] [place] [address] 15 Jul, 2013 [facility] [address] [id number] [address] [place] [address], [place] [address] 28 Jun, 2013 [facility] [address] [id number] [address] [place] [address], [place] [address] 28 Jun, 2013 [facility] [address] [id number] [address] [place] [address], [place] [address] 18 Jun, 2013 [facility] [address] [id number] [address] [place] [address], [place] [address] 18 Jun, 2013 [facility] [address] [id number] [address] [place] [address], [place] [address] 14 Jun, 2013 [facility] [address] [id number] [address] [place] [address], [place] [address] 14 Jun, 2013 [facility] [address] [id number] [address] [place] [address], [place] [address] 20 May, 2013 [facility] [address] [id number] [address] [place] [address], [place] [address] 18 May, 2013 [facility] [address] [id number] [address] [place] [address], [place] [address] 16 May, 2013 [facility] [address] [id number] [address] [place] [address], [place] [address] Apr, [facility] [address] [id number] [address] [place] [address], [place] [address] Apr, [facility] [address] [id number] [address] [place] [address], [place] [address] Apr, [facility] [address] [id number] [address] [place] [address], [place] [address] Mar, [facility] [address] [id number] [address] [place] [address], [place] [address] Mar, [facility] [address] [id number] [address] [place] [address], [place] [address] Feb, [facility] [address] [id number] [address] [place] [address], [place] [address] Feb, [facility] [address] [id number] [address] [place] [address], [place] [address] 04 Feb, 2013 [facility] [address] [id number] [address] [place] [address], [place] [address] January, [facility] [address] [id number] [address] [place] [address], [place] [address] January, [facility] [address] [id number] [address] [place] [address], [place] [address] January, [facility] [address] [id number] [address] [place] [address], [place] [address] 15 Dec, 2012 [facility] [address] [id number] [address] [place] [address], [place] [address] Dec, [facility] [address] [id number] [address] [place] [address], [place] [address] 08 Dec, 2012 [facility] [address] [id number] [address] [place] [address], [place] [address] 19 Nov, 2012 [facility] [address] [id number] [address] [place] [address], [place] [address] 14 Nov, 2012 [facility] [address] [id number] [address] [place] [address], [place] [address] Nov, [facility] [address] [id number] [address] [place] [address], [place] [address] 18 Oct, 2012 [facility] [address] [id number] [address] [place] [address], [place] [address] 14 Oct, 2012 [facility] [address] [id number] [address] [place] [address], [place] [address] Sep, [facility] [address] [id number] [address] [place] [address], [place] [address] 24 Sep, 2012 [facility] [address] [id number] [address] [address] Sep, [facility] [address] [id number] [address] [place] [address], [place] [address] Aug, [facility] [address] [id number] [address] [place] [address], [place] [address] Aug, [facility] [address] [id number] [address] [place] [address], [place] [address] Aug, [facility] [address] [id number] [address] [place] [address] Aug, [facility] [address] [id number] [address] [place] [address], [place] [address] Aug, [facility] [address] [id number] [address] [place] [address], [place] [address] Jul, [facility] [address] [id number] [address] [place] [address], [place] [address] Jul, [facility] [address] [id number] [address] [place] [address], [place] [address] Jul, [facility] [address] [id number] [address] [place] [address], [place] [address] Jul, [facility] [address] [id number] [address] [place] [address], [place] [address] Jul, [facility] [address] [id number] [address] [place] [address] Jul, [facility] [address] [id number] [address] [place] [address] Jun, [facility] [address] [id number] [address] [place] [address], [place] [address] Jun, [facility] [address] [id number] [address] [place] [address], [place] [address] Jun, [facility] [address] [id number] [address] [place] [address] Jun, [facility] [address] [id number] [address] [place] [address], [place] [address] 13 May, 2012 [facility] [address] [id number] [address] [place] [address], [place] [address] 06 May, 2012 [facility] [address] [id number] [address] [place] [address], [place] [address] 16 Apr, 2012 [facility] [address] [id number] [address] [place] [address], [place] [address] 15 Apr, 2012 [facility] [address] [id number] [address] [place] [address], [place] [address] 14 Apr, 2012 [facility] [address] [id number] [address] [place] [address], [place] [address] 17 Mar, 2012 [facility] [address] [id number] [address] [place] [address], [place] [address] 13 Mar, 2012 [facility] [address] [id number] [address] [place] [address], [place] [address] Feb, [facility] [address] [id number] [address] [place] [address], [place] [address] 24 Jan, 2012 [facility] [address] [id number] [address] [place] [address], [place] [address] January, [facility] [address] [id number] [address] [place] [address], [place] [address] Dec, [facility] [address] [id number] [address] [place] [address], [place] [address] Dec, [facility] [address] [id number] [address] [place] [address], [place] [address] Dec, [facility] [address] [id number] [address] [place] [address], [place] [address] Dec, [facility] [address] [id number] [address] [place] [address], [place] [address] 30 Nov, 2011 [facility] [address] [id number] [address] [place] [address], [place] [address] Nov, [facility] [address] [id number] [address] [place] [address], [place] [address] 15 Nov, 2011 [facility] [address] [id number] [address] [place] [address], [place] [address] 02 Nov, 2011 [facility] [address] [id number] [address] [place] [address], [place] [address] 14 Oct, 2011 [facility] [address] [id number] [address] [place] [address], [place] [address] 09 Oct, 2011 [facility] [address] [id number] [address] [place] [address], [place] [address] Sep, [facility] [address] [id number] [address] [place] [address], [place] [address] 30 Aug, 2011 [facility] [address] [id number] [address] [place] [address], [place] [address] Aug, [facility] [address] [id number] [address] [place] [address], [place] [address] Aug, [facility] [address] [id number] [address] [place] [address], [place] [address] Jul, [facility] [address] [id number] [address] [place] [address], [place] [address] Jul, [facility] [address] [id number] [address] [place] [address], [place] [address] Jul, [facility] [address] [id number] [address] [place] [address], [place] [address] 20 Jun, 2011 [facility] [address] [id number] [address] [place] [address], [place] [address] 14 Jun, 2011 [facility] [address] [id number] [address] [place] [address], [place] [address] 13 Jun, 2011 [facility] [address] [id number] [address] [place] [address], [place] [address] 13 Jun, 2011 [facility] [address] [id number] [address] [place] [id number] 19 May, 2011 [facility] [address] [id number] [address] [place] [id number] 17 Jan, 2011 [facility] [address] [id number] [address] [place] [id number] 28 Aug, 2010 [facility] [address] [id number] [address] [place] [phone] Aug, [facility] [address] [id number] [address] [place] [phone] Aug, [facility] [address] [id number] [address] [place] [phone] Aug, [facility] [address] [id number] [address] [place] [id number] Jul, [facility] [address] [id number] [address] [place] [phone] Jul, [facility] [address] [id number] [address] [place] [id number] 15 Jun, 2010 [facility] [address] [id number] [address] [place] [id number] 15 Jun, 2010 [facility] [address] [id number] [address] [place] [id number] 16 May, 2010 [facility] [address] [id number] [address] [place] [id number] January, IMMUNIZATIONS No Known Immunizations SOCIAL HISTORY [...]
--- OUTSIDE RECORDS SUMMARY | 2020-02-13 16:27 | XMS REPORT ---
Author Author Cami GLEZ Organization [facility] Address [address] [place] [address] Care Team Providers Care Doughmaker Name Role Phone DON GLEZ Unavailable PROBLEMS Type Condition ICD9-CM Code WAR58-RG Code Onset Dates Condition S tatus SNOMED Code Problem Hypertension I10 Active 5377653 3 Problem Generalized anxiety disorder F41.1 A ctive 71701600 Problem Depressive disorder, not elsewhere classified F32. 9 Active 18200186 Problem Basal cell carcinoma (BCC) of skin of right ear C4 4.212 Active 543046328 Problem Back pain M54.9 Active 566978136 Problem Skin ulcer of left foot with fat layer exposed L97 .522 Active 45373318 Problem Arthritis M19.90 Active 9828212 Problem COPD (chronic obstructive pulmonary disease) J44.9 Active 92325015 Problem Vitamin D deficiency E55.9 Active 96706497 Problem Lumbar radiculopathy M54.16 Active 949173358 Problem Venous insufficiency I87.2 Active 88773055 ALLERGIES No Information ENCOUNTERS Encounter Location Date Diagnosis [place] [address] [facility] [id number] [address] [place] [id number] 16 Feb, 2020 [facility] [address] [facility] [id number] [address] [place] [id number] 14 Dec, 2019 Radiculopathy, lumbar region M54.[id number] [place] [id number] 14 Dec, 2019 Radiculopathy, lumbar region M54.16 [facility] [address] [facility] [id number] [address] [place] [id number] 09 Dec, 2019 Lumbar radiculopathy M54.16 [facility] [address] [facility] [id number] [address] [place] [id number] 02 Dec, 2019 [facility] [address] [id number] [address] [place] [id number] 20 Nov, 2019 [facility] [address] [id number] [address] [place] [id number] 18 Nov, 2019 [facility] [address] [id number] [address] [place] [id number] 17 Nov, 2019 Weight loss R63.4 ; Skin ulc er of left foot with fat layer exposed L97.522 ; Basal cell carcinoma (BCC) of skin of right ear C44.212 ; Hypertension I10 and Lumbar radiculopathy M54.16 [facility] [address] [id number] [address] [place] [id number] 11 Nov, 2019 Back pain M54.9 and Radiculo peg, lumbar region M54.16 [facility] [address] [id number] [address] [place] [id number] 20 Oct, 2019 Radiculopathy, lumbar region M54.16 [facility] [address] [id number] [address] [place] [id number] 19 Oct, 2019 [facility] [address] [id number] [address] [place] [id number] 11 Oct, 2019 Back pain M54.9 [facility] [address] [id number] [address] [place] [id number] 10 Oct, 2019 [facility] [address] [id number] [address] [place] [id number] 06 Oct, 2019 Skin sore L98.9 [facility] [address] [id number] [address] [place] [id number] 24 Sep, 2019 Radiculopathy, lumbar region M54.16 [facility] [address] [id number] [address] [place] [id number] 15 Sep, 2019 Back pain M54.9 [facility] [address] [id number] [address] [place] [id number] Sep, Generalized anxiety disorder F41.1 [facility] [address] [id number] [address] [place] [id number] Aug, Radiculopathy, lumbar region M54.16 [facility] [address] [id number] [address] [place] [id number] Aug, Back pain M54.9 [facility] [address] [id number] [address] [place] [id number] Aug, Lumbar radiculopathy M54.16 ; Generalized anxiety disorder F41.1 and Drug-induced constipation K59.03 [facility] [address] [id number] [address] [place] [id number] Jul, Radiculopathy, lumbar region M54.16 [facility] [address] [id number] [address] [place] [id number] Jul, [facility] [address] [id number] [address] [place] [id number] Jul, [facility] [address] [id number] [address] [place] [id number] Jul, Back pain M54.9 [facility] [address] [id number] [address] [place] [id number] Jul, Radiculopathy, lumbar region M54.16 [facility] [address] [id number] [address] [place] [id number] Jul, Radiculopathy, lumbar region M54.16 [facility] [address] [id number] [address] [place] [id number] Jun, Back pain M54.9 [facility] [address] [id number] [address] [place] [id number] Jun, [facility] [address] [id number] [address] [place] [id number] Jun, Radiculopathy, lumbar region M54.16 [facility] [address] [id number] [address] [place] [id number] 08 Jun, 2019 [facility] [address] [id number] [address] [place] [id number] 30 May, 2019 Back pain M54.9 [facility] [address] [id number] [address] [place] [id number] May, Cellulitis of other specifie d site L03.818 ; Dermatitis L30.9 and Lumbar radiculopathy M54.16 [facility] [address] [id number] [address] [place] [id number] May, [facility] [address] [facility] [id number] [address] [place] [id number] May, Back pain M54.9 [facility] [address] [id number] [address] [place] [id number] 05 May, 2019 [facility] [address] [id number] [address] [place] [id number] 04 May, 2019 Back pain M54.9 [facility] [address] [facility] [id number] [address] [place] [id number] 14 Apr, 2019 [facility] [address] [facility] [id number] [address] [place] [id number] 08 Apr, 2019 Back pain M54.9 [facility] [address] [id number] [address] [place] [id number] Apr, Hyponatremia E87.1 [facility] [address] [facility] [id number] [address] [place] [id number] Apr, Hyponatremia E87.1 [facility] [address] [facility] [id number] [address] [place] [id number] Mar, Arthritis M19.90 ; Impacted cerumen of right ear H61.21 and Hypertension I10 [facility] [address] [id number] [id number] 16 Mar, 2019 [facility] [address] [id number] [address] [place] [id number] Mar, Back pain M54.9 [facility] [address] [id number] [address] [place] [id number] Feb, Back pain M54.9 [facility] [address] [id number] [address] [place] [id number] Feb, [facility] [address] [id number] [address] [place] [id number] Feb, Dermatitis L30.9 [facility] [address] [id number] [address] [place] [id number] January, Dermatitis L30.9 [facility] [address] [id number] [address] [place] [id number] January, [facility] [address] [id number] [address] [place] [id number] January, Back pain M54.9 [facility] [address] [id number] [address] [place] [id number] Dec, [facility] [address] [id number] [address] [place] [id number] Dec, Back pain M54.9 [facility] [address] [id number] [address] [place] [id number] Dec, Lumbar radiculopathy M54.16 ; Arthritis M19.90 and Dyshydrosis L30.1 [facility] [address] [id number] [address] [place] [id number] Nov, Back pain M54.9 [facility] [address] [id number] [address] [place] [id number] Nov, [facility] [address] [id number] [address] [place] [id number] Oct, [facility] [address] [id number] [address] [place] [id number] Oct, Back pain M54.9 [facility] [address] [id number] [address] [place] [id number] 14 Oct, 2018 [facility] [address] [id number] [address] [place] [id number] Oct, [facility] [address] [id number] [address] [place] [id number] Sep, Back pain M54.9 [facility] [address] [id number] [address] [place] [id number] Sep, [facility] [address] [id number] [address] [place] [id number] Aug, Back pain M54.9 [facility] [address] [id number] [address] [place] [id number] Aug, Encounter for immunization Z 23 ; Arthritis M19.90 and Generalized anxiety disorder F41.1 [facility] [address] [id number] [address] [place] [id number] Aug, [facility] [address] [id number] [address] [place] [id number] Aug, [facility] [address] [id number] [address] [place] [id number] Jul, Back pain M54.9 [facility] [address] [id number] [address] [place] [id number] Jul, [facility] [address] [id number] [address] [place] [id number] Jul, [facility] [address] [id number] [address] [place] [id number] Jun, Back pain M54.9 [facility] [address] [id number] [address] [place] [id number] Jun, [facility] [address] [id number] [address] [place] [id number] 04 Jun, 2018 Back pain M54.9 [facility] [address] [id number] [address] [place] [id number] 11 May, 2018 Lumbar radiculopathy M54.16 ; Hypertension I10 and Generalized anxiety disorder F41.1 [facility] [address] [id number] [address] [place] [id number] 06 May, 2018 Back pain M54.9 [facility] [address] [id number] [address] [place] [id number] Apr, [facility] [address] [id number] [address] [place] [id number] Apr, [facility] [address] [id number] [address] [place] [id number] Apr, Back pain M54.9 [facility] [address] [id number] [address] [place] [id number] Mar, Back pain M54.9 [facility] [address] [id number] [address] [place] [id number] Feb, [facility] [address] [id number] [address] [place] [id number] Feb, [facility] [address] [id number] [address] [place] [id number] Feb, [facility] [address] [id number] [address] [place] [id number] 14 Feb, 2018 Back pain M54.9 [facility] [address] [id number] [address] [place] [id number] Feb, Back pain M54.9 ; Hypertensi on I10 ; Generalized anxiety disorder F41.1 and Venous insufficiency I87.2 [facility] [address] [id number] [address] [place] [id number] January, [facility] [address] [id number] [address] [place] [id number] January, Back pain M54.9 [facility] [address] [id number] [address] [place] [id number] Dec, [facility] [address] [id number] [address] [place] [id number] Dec, Back pain M54.9 [facility] [address] [id number] [address] [place] [id number] Nov, Back pain M54.9 [facility] [address] [id number] [address] [place] [id number] Nov, [facility] [address] [id number] [address] [place] [id number] Nov, Lumbar radiculopathy M54.16 ; Hypertension I10 ; Arthritis M19.90 and Back pain M54.9 [facility] [address] [id number] [address] [place] [id number] Oct, Back pain M54.9 [facility] [address] [id number] [address] [place] [id number] Oct, [facility] [address] [facility] [id number] [address] [place] [id number] Sep, Back pain M54.9 [facility] [address] [id number] [address] [place] [id number] Sep, [facility] [address] [id number] [address] [place] [id number] Aug, Back pain M54.9 [facility] [address] [facility] [id number] [address] [place] [id number] Jul, Back pain M54.9 [facility] [address] [facility] [id number] [address] [place] [id number] 09 Jul, 2017 Encounter for immunization Z 23 ; Back pain M54.9 ; Hypertension I10 and Lumbar radiculopathy M54.16 [facility] [address] [id number] [address] [place] [id number] Jul, Back pain M54.9 [facility] [address] [id number] [address] [place] [id number] Jun, Vitamin D deficiency E55.9 [facility] [address] [id number] [address] [place] [id number] Jun, Back pain M54.9 [facility] [address] [id number] [address] [place] [id number] May, [facility] [address] [id number] [address] [place] [id number] May, [facility] [address] [id number] [address] [place] [id number] May, [facility] [address] [facility] [id number] [address] [place] [id number] May, Back pain M54.9 [facility] [address] [id number] [address] [place] [id number] Apr, Back pain M54.9 ; Hypertensi on I10 ; Arthritis M19.90 and Generalized anxiety disorder F41.1 [facility] [address] [id number] [address] [place] [id number] Apr, Back pain M54.9 [facility] [address] [id number] [address] [place] [id number] Mar, Back pain M54.9 [facility] [address] [facility] [id number] [address] [place] [id number] Mar, Vitamin D deficiency E55.9 [facility] [address] [facility] [id number] [address] [place] [id number] 15 Feb, 2017 Vitamin D deficiency E55.9 [facility] [address] [facility] [id number] [address] [place] [id number] 14 Feb, 2017 Vitamin D deficiency E55.9 [facility] [address] [id number] [address] [place] [id number] Feb, Back pain M54.9 [facility] [address] [id number] [address] [place] [id number] January, Back pain M54.9 [facility] [address] [id number] [address] [place] [id number] January, Arthritis M19.90 [facility] [address] [id number] [address] [place] [id number] January, Vitamin D deficiency E55.9 a nd Arthritis M19.90 [facility] [address] [id number] [address] [place] [id number] Dec, Medicare annual wellness vis it, initial Z00.00 and Encounter for immunization Z23 [facility] [address] [id number] [address] [place] [id number] Dec, Back pain M54.9 [facility] [address] [id number] [address] [place] [id number] Nov, Back pain M54.9 [facility] [address] [id number] [address] [place] [id number] 24 Oct, 2016 Back pain M54.9 [facility] [address] [id number] [address] [place] [id number] 14 Oct, 2016 COPD (chronic obstructive pu lmonary disease) J44.9 [facility] [address] [id number] [address] [place] [id number] 14 Oct, 2016 [facility] [address] [id number] [address] [place] [id number] 02 Oct, 2016 Hypertension I10 ; Back pain M54.9 and Encounter for immunization Z23 [facility] [address] [id number] [address] [place] [id number] Sep, [facility] [address] [id number] [address] [place] [id number] Sep, Back pain M54.9 [facility] [address] [id number] [address] [place] [id number] Sep, Back pain M54.9 [facility] [address] [id number] [address] [place] [id number] Aug, [facility] [address] [id number] [address] [place] [id number] Aug, Back pain M54.9 [facility] [address] [id number] [address] [place] [id number] Aug, [facility] [address] [id number] [address] [place] [id number] Aug, [facility] [address] [id number] [address] [place] [id number] Aug, Back pain M54.9 [facility] [address] [id number] [address] [place] [id number] Jul, [facility] [address] [id number] [address] [place] [id number] Jul, Back pain M54.9 [facility] [address] [id number] [address] [place] [id number] Jun, Back pain M54.9 ; Hypertensi on I10 ; Generalized anxiety disorder F41.1 and Encounter for immunization Z23 [facility] [address] [id number] [address] [place] [id number] Jun, [facility] [address] [id number] [address] [place] [id number] May, [facility] [address] [id number] [address] [place] [id number] Apr, [facility] [address] [id number] [address] [place] [id number] Apr, [facility] [address] [id number] [address] [place] [id number] 28 Mar, 2016 [facility] [address] [id number] [address] [place] [id number] Mar, [facility] [address] [id number] [address] [place] [id number] 15 Mar, 2016 [facility] [address] [id number] [address] [place] [id number] Feb, Back pain M54.9 and Hyperten madelyn I10 [facility] [address] [id number] [address] [place] [id number] 17 Feb, 2016 Back pain M54.9 [facility] [address] [id number] [address] [place] [id number] Dec, COPD (chronic obstructive pu lmonary disease) J44.9 [facility] [address] [id number] [address] [place] [id number] Dec, [facility] [address] [id number] [address] [place] [id number] 18 Dec, 2015 Back pain M54.9 [facility] [address] [id number] [address] [place] [id number] 24 Nov, 2015 Back pain M54.9 [facility] [address] [id number] [address] [place] [id number] 14 Nov, 2015 COPD (chronic obstructive pu lmonary disease) J44.9 [facility] [address] [id number] [address] [place] [id number] 04 Nov, 2015 Hypertension I10 and Back pa in M54.9 [facility] [address] [id number] [address] [place] [id number] 29 Oct, 2015 Hypertension I10 and Back pa in M54.9 [facility] [address] [id number] [address] [place] [id number] Oct, Back pain M54.9 [facility] [address] [id number] [address] [place] [id number] Sep, Back pain M54.9 [facility] [address] [id number] [address] [place] [id number] Sep, [facility] [address] [id number] [address] [place] [id number] Sep, [facility] [address] [id number] [address] [place] [id number] Sep, [facility] [address] [id number] [address] [place] [id number] Sep, [facility] [address] [id number] [address] [place] [id number] Aug, [facility] [address] [id number] [address] [place] [id number] Aug, [facility] [address] [id number] [address] [place] [id number] Aug, [facility] [address] [id number] [address] [place] [id number] Aug, [facility] [address] [id number] [address] [place] [id number] Aug, [facility] [address] [id number] [address] [place] [id number] Jul, [facility] [address] [id number] [address] [place] [id number] Jul, Back pain M54.9 ; Arthritis M19.90 ; Hypertension I10 and Encounter for immunization Z23 [facility] [address] [id number] [address] [place] [id number] Jul, Generalized anxiety disorder F41.1 and Depressive disorder, not elsewhere classified F32.9 [facility] [address] [id number] [address] [place] [id number] Jul, [facility] [address] [id number] [address] [place] [id number] Jul, [facility] [address] [id number] [address] [place] [id number] Jul, [facility] [address] [id number] [address] [place] [id number] Jun, [facility] [address] [id number] [address] [place] [id number] Jun, [facility] [address] [id number] [address] [place] [id number] May, [facility] [address] [id number] [address] [place] [id number] May, [facility] [address] [id number] [address] [place] [id number] May, [facility] [address] [id number] [address] [place] [address] May, [facility] [address] [id number] [address] [place] [address] May, Benign essential hypertensio n 401.1 ; Anxiety state, unspecified 300.00 ; Back pain 724.5 and Arthritis 716.90 [facility] [address] [id number] [address] [place] [id number] May, [facility] [address] [id number] [address] [place] [id number] Apr, [facility] [address] [id number] [address] [place] [id number] Apr, [facility] [address] [id number] [address] [place] [id number] Apr, [facility] [address] [id number] [address] [place] [id number] Mar, [facility] [address] [id number] [address] [place] [id number] Mar, [facility] [address] [id number] [address] [place] [id number] Mar, [facility] [address] [id number] [address] [place] [id number] Feb, High risk medication use V58 .69 [facility] [address] [id number] [address] [place] [id number] Feb, Benign essential hypertensio n 401.1 ; Anxiety state, unspecified 300.00 and Chronic pain 338.29 [facility] [address] [id number] [address] [place] [id number] Feb, [facility] [address] [id number] [address] [place] [id number] January, [facility] [address] [id number] [address] [place] [id number] January, [facility] [address] [id number] [address] [place] [id number] January, [facility] [address] [id number] [address] [place] [id number] January, [facility] [address] [id number] [address] [place] [id number] Dec, [facility] [address] [id number] [address] [place] [id number] Dec, [facility] [address] [id number] [address] [place] [id number] Nov, [facility] [address] [id number] [address] [place] [id number] Nov, [facility] [address] [id number] [address] [place] [id number] Nov, [facility] [address] [id number] [address] [place] [phone] Nov, [facility] [address] [id number] [address] [place] [id number] Oct, [facility] [address] [id number] [address] [place] [address], [place] [address] Oct, [facility] [address] [id number] [address] [place] [address], [place] [address] Oct, [facility] [address] [id number] [address] [place] [address], [place] [address] Oct, [facility] [address] [id number] [address] [place] [address], [place] [address] Oct, [facility] [address] [id number] [address] [place] [address], [place] [address] Sep, [facility] [address] [id number] [address] [place] [address], [place] [address] Sep, [facility] [address] [id number] [address] [place] [address], [place] [address] Sep, [facility] [address] [id number] [address] [place] [address], [place] [address] Sep, [facility] [address] [id number] [address] [place] [address], [place] [address] Aug, [facility] [address] [id number] [address] [place] [address], [place] [address] Aug, [facility] [address] [id number] [address] [place] [address], [place] [address] Aug, [facility] [address] [id number] [address] [place] [address], [place] [address] Aug, [facility] [address] [id number] [address] [place] [address], [place] [address] Aug, [facility] [address] [id number] [address] [place] [address], [place] [id number] Aug, [facility] [address] [id number] [address] [place] [address], [place] [address] Jul, [facility] [address] [id number] [address] [place] [address], [place] [address] Jul, [facility] [address] [id number] [address] [place] [address], [place] [address] Jun, [facility] [address] [id number] [address] [place] [address], [place] [address] Jun, [facility] [address] [id number] [address] [place] [address], [place] [address] Jun, [facility] [address] [id number] [address] [place] [address], [place] [address] Jun, [facility] [address] [id number] [address] [place] [address], [place] [address] May, [facility] [address] [id number] [address] [place] [address], [place] [address] May, [facility] [address] [id number] [address] [place] [address], [place] [address] May, [facility] [address] [id number] [address] [place] [address], [place] [address] May, [facility] [address] [id number] [address] [place] [address], [place] [address] Apr, [facility] [address] [id number] [address] [place] [address], [place] [address] Apr, [facility] [address] [id number] [address] [place] [address], [place] [address] Apr, [facility] [address] [id number] [address] [place] [address], [place] [address] Apr, [facility] [address] [id number] [address] [place] [address], [place] [address] Apr, [facility] [address] [id number] [address] [place] [address], [place] [address] Apr, [facility] [address] [id number] [address] [place] [address], [place] [address] Mar, [facility] [address] [id number] [address] [place] [address], [place] [address] Mar, [facility] [address] [id number] [address] [place] [address], [place] [address] Mar, [facility] [address] [id number] [address] [place] [address], [place] [address] Mar, [facility] [address] [id number] [address] [place] [address], [place] [address] Feb, [facility] [address] [id number] [address] [place] [address], [place] [address] Feb, [facility] [address] [id number] [address] [place] [address], [place] [address] Feb, [facility] [address] [id number] [address] [place] [address], [place] [address] January, [facility] [address] [id number] [address] [place] [address], [place] [address] January, [facility] [address] [id number] [address] [place] [address], [place] [address] January, [facility] [address] [id number] [address] [place] [address], [place] [address] January, [facility] [address] [id number] [address] [place] [address], [place] [address] January, [facility] [address] [id number] [address] [place] [address], [place] [address] January, [facility] [address] [id number] [address] [place] [address], [place] [address] January, [facility] [address] [id number] [address] [place] [address], [place] [address] January, [facility] [address] [id number] [address] [place] [address], [place] [address] Dec, [facility] [address] [id number] [facility] [place] [address] 24 Dec, 2013 [facility] [address] [id number] [facility] [place] [address] Dec, [facility] [address] [id number] [address] [place] [address], [place] [address] Dec, [facility] [address] [id number] [address] [place] [address], [place] [address] Dec, [facility] [address] [id number] [address] [place] [address], [place] [address] Dec, [facility] [address] [id number] [address] [place] [address], [place] [address] Dec, [facility] [address] [id number] [address] [place] [address], [place] [address] Nov, [facility] [address] [id number] [address] [place] [address], [place] [address] Nov, [facility] [address] [id number] [address] [place] [address], [place] [address] Nov, [facility] [address] [id number] [address] [place] [address], [place] [address] Nov, [facility] [address] [id number] [address] [place] [address], [place] [address] 18 Nov, 2013 [facility] [address] [id number] [address] [place] [address], [place] [address] 18 Nov, 2013 [facility] [address] [id number] [address] [place] [address], [place] [address] Nov, [facility] [address] [id number] [address] [place] [address], [place] [address] Nov, [facility] [address] [id number] [address] [place] [address], [place] [address] 07 Nov, 2013 [facility] [address] [id number] [address] [place] [address], [place] [address] Nov, [facility] [address] [id number] [address] [place] [address], [place] [address] Nov, [facility] [address] [id number] [address] [place] [address], [place] [address] Nov, [facility] [address] [id number] [address] [place] [address], [place] [address] Oct, [facility] [address] [id number] [address] [place] [address], [place] [address] Oct, [facility] [address] [id number] [address] [place] [address], [place] [address] Sep, [facility] [address] [id number] [address] [place] [address], [place] [address] Sep, [facility] [address] [id number] [address] [place] [address], [place] [address] Sep, [facility] [address] [id number] [address] [place] [address], [place] [address] Sep, [facility] [address] [id number] [address] [place] [address], [place] [address] Aug, [facility] [address] [id number] [address] [place] [address], [place] [address] Aug, [facility] [address] [id number] [address] [place] [address], [place] [address] 15 Jul, 2013 [facility] [address] [id number] [address] [place] [address], [place] [address] 15 Jul, 2013 [facility] [address] [id number] [address] [place] [address], [place] [address] 15 Jul, 2013 [facility] [address] [id number] [address] [place] [address], [place] [address] 15 Jul, 2013 [facility] [address] [id number] [address] [place] [address], [place] [address] 28 Jun, 2013 [facility] [address] [id number] [address] [place] [address] [place] [address] 28 Jun, 2013 [facility] [address] [id number] [address] [place] [address], [place] [address] 18 Jun, 2013 [facility] [address] [id number] [address] [place] [address], [place] [address] 18 Jun, 2013 [facility] [address] [id number] [address] [place] [address], [place] [address] 14 Jun, 2013 [facility] [address] [id number] [address] [place] [address], [place] [address] 14 Jun, 2013 [facility] [address] [id number] [address] [place] [address], [place] [address] 20 May, 2013 [facility] [address] [id number] [address] [place] [address], [place] [address] 18 May, 2013 [facility] [address] [id number] [address] [place] [address], [place] [address] 16 May, 2013 [facility] [address] [id number] [address] [place] [address], [place] [address] Apr, [facility] [address] [id number] [address] [place] [address], [place] [address] Apr, [facility] [address] [id number] [address] [place] [address], [place] [address] Apr, [facility] [address] [id number] [address] [place] [address], [place] [address] Mar, [facility] [address] [id number] [address] [place] [address], [place] [id number] Mar, [facility] [address] [id number] [address] [place] [address], [place] [address] Feb, [facility] [address] [id number] [address] [place] [address], [place] [address] Feb, [facility] [address] [id number] [address] [place] [address], [place] [address] Feb, [facility] [address] [id number] [address] [place] [address], [place] [address] 14 Jan, 2013 [facility] [address] [id number] [address] [place] [address], [place] [address] January, [facility] [address] [id number] [address] [place] [address], [place] [address] 06 Jan, 2013 [facility] [address] [id number] [address] [place] [address], [place] [address] 15 Dec, 2012 [facility] [address] [id number] [address] [place] [address], [place] [address] Dec, [facility] [address] [id number] [address] [place] [address], [place] [address] 08 Dec, 2012 [facility] [address] [id number] [address] [place] [address], [place] [address] 19 Nov, 2012 [facility] [address] [id number] [address] [place] [address], [place] [address] 14 Nov, 2012 [facility] [address] [id number] [address] [place] [address], [place] [address] Nov, [facility] [address] [id number] [address] [place] [address], [place] [address] 18 Oct, 2012 [facility] [address] [id number] [address] [place] [address], [place] [address] 14 Oct, 2012 [facility] [address] [id number] [address] [place] [address], [place] [address] Sep, [facility] [address] [id number] [address] [place] [address], [place] [address] Sep, [facility] [address] [id number] [address] [place] [address], [place] [address] Sep, [facility] [address] [id number] [address] [place] [address], [place] [address] Aug, [facility] [address] [id number] [address] [place] [address] Aug, [facility] [address] [id number] [address] [place] [address], [place] [address] Aug, [facility] [address] [id number] [address] [place] [address], [place] [address] Aug, [facility] [address] [id number] [address] [place] [address], [place] [address] Aug, [facility] [address] [id number] [address] [place] [id number] Jul, [facility] [address] [id number] [address] [place] [address], [place] [address] Jul, [facility] [address] [id number] [address] [place] [address], [place] [address] Jul, [facility] [address] [id number] [address] [place] [address], [place] [address] Jul, [facility] [address] [id number] [address] [place] [address], [place] [address] Jul, [facility] [address] [id number] [address] [place] [address], [place] [address] Jul, [facility] [address] [id number] [address] [place] [address], [place] [address] Jun, [facility] [address] [id number] [address] [place] [id number] Jun, [facility] [address] [id number] [address] [place] [address] Jun, [facility] [address] [id number] [address] [place] [address], [place] [address] Jun, [facility] [address] [id number] [address] [place] [address] May, [facility] [address] [id number] [address] [place] [id number] 06 May, 2012 [facility] [address] [id number] [address] [place] [address], [place] [address] 16 Apr, 2012 [facility] [address] [id number] [address] [place] [address], [place] [address] 15 Apr, 2012 [facility] [address] [id number] [address] [place] [address], [place] [address] 14 Apr, 2012 [facility] [address] [id number] [address] [place] [address], [place] [address] 17 Mar, 2012 [facility] [address] [id number] [address] [place] [address], [place] [address] 13 Mar, 2012 [facility] [address] [id number] [address] [place] [address], [place] [address] Feb, [facility] [address] [id number] [address] [place] [address], [place] [address] 24 Jan, 2012 [facility] [address] [id number] [address] [place] [address], [place] [address] January, [facility] [address] [id number] [address] [place] [address], [place] [address] 27 Dec, 2011 [facility] [address] [id number] [address] [place] [address], [place] [address] 25 Dec, 2011 [facility] [address] [id number] [address] [place] [address], [place] [address] 05 Dec, 2011 [facility] [address] [id number] [address] [place] [address], [place] [address] 04 Dec, 2011 [facility] [address] [id number] [address] [place] [address], [place] [address] 30 Nov, 2011 [facility] [address] [id number] [address] [place] [address], [place] [id number] 23 Nov, 2011 [facility] [address] [id number] [address] [place] [address], [place] [id number] 15 Nov, 2011 [facility] [address] [id number] [address] [place] [address], [place] [id number] Nov, [facility] [address] [id number] [address] [place] [address], [place] [id number] 14 Oct, 2011 [facility] [address] [id number] [address] [place] [address], [place] [id number] 09 Oct, 2011 [facility] [address] [id number] [address] [place] [address], [place] [id number] Sep, [facility] [address] [id number] [address] [place] [address], [place] [id number] 30 Aug, 2011 [facility] [address] [id number] [address] [place] [address], [place] [id number] Aug, [facility] [address] [id number] [address] [place] [address], [place] [id number] Aug, [facility] [address] [id number] [address] [place] [address], [place] [id number] Jul, [facility] [address] [id number] [address] [place] [address], [place] [id number] Jul, [facility] [address] [id number] [address] [place] [address], [place] [id number] Jul, [facility] [address] [id number] [address] [place] [id number] Jun, [facility] [address] [id number] [address] [place] [address], [place] [id number] 14 Jun, 2011 [facility] [address] [id number] [address] [place] [id number] 13 Jun, 2011 [facility] [address] [id number] [address] [place] [address], [place] [id number] Jun, [facility] [address] [id number] [address] [place] [address], [place] [id number] 19 May, 2011 [facility] [address] [id number] [address] [place] [address], [place] [id number] January, [facility] [address] [id number] [address] [place] [id number] 28 Aug, 2010 [facility] [address] [id number] [address] [place] [id number] 27 Aug, 2010 [facility] [address] [id number] [address] [place] [id number] Aug, [facility] [address] [id number] [address] [place] [id number] Aug, [facility] [address] [id number] [address] [place] [id number] Jul, [facility] [address] [id number] [address] [place] [id number] Jul, [facility] [address] [id number] [address] [place] [id number] 15 Jun, 2010 [facility] [address] [id number] [address] [place] [id number] Jun, [facility] [address] [id number] [address] [place] [id number] 16 May, 2010 [facility] [address] [id number] [address] [place] [id number] January, IMMUNIZATIONS No Known Immunizations SOCIAL HISTORY [...]
--- OUTSIDE RECORDS SUMMARY | 2020-02-13 16:27 | XMS REPORT ---
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 9 Active 46027969 Problem Basal cell carcinoma (BCC) of skin of right ear C4 4.212 Active 922974734 Problem Back pain M54.9 Active 144128488 Problem Skin ulcer of left foot with fat layer exposed L97 .522 Active 75104919 Problem Arthritis M19.90 Active 0523551 Problem COPD (chronic obstructive pulmonary disease) J44.9 Active 29906795 Problem Vitamin D deficiency E55.9 Active 25795886 Problem Lumbar radiculopathy M54.16 Active 806570130 Problem Venous insufficiency I87.2 Active [id number] ALLERGIES No Information ENCOUNTERS Encounter Location Date Diagnosis [place] [address] [facility] [id number] [address] [place] [phone] 16 Feb, 2020 [place] [address] [facility] [id number] [address] [place] [phone] Dec, [facility] [address] [facility] [id number] [address] [place] [phone] Dec, [facility] [address] [facility] [id number] [address] [place] [phone] 20 Nov, 2019 [facility] [address] [facility] [id number] [address] [place] [phone] 18 Nov, 2019 [facility] [address] [facility] [id number] [address] [place] [phone] 17 Nov, 2019 Weight loss R63.4 ; Skin ulc er of left foot with fat layer exposed L97.522 ; Basal cell carcinoma (BCC) of skin of right ear C44.212 ; Hypertension I10 and Lumbar radiculopathy M54.16 [facility] [address] [id number] [address] [place] [id number] 11 Nov, 2019 Back pain M54.9 and Radiculo peg, lumbar region M54.16 [facility] [address] [id number] [address] [place] [phone] 20 Oct, 2019 Radiculopathy, lumbar region M54.16 [facility] [address] [id number] [address] [place] [phone] 19 Oct, 2019 [facility] [address] [id number] [address] [place] [phone] 11 Oct, 2019 Back pain M54.9 [facility] [address] [id number] [address] [place] [phone] 10 Oct, 2019 [facility] [address] [id number] [address] [place] [id number] 06 Oct, 2019 Skin sore L98.9 [facility] [address] [id number] [address] [place] [id number] 24 Sep, 2019 Radiculopathy, lumbar region M54.16 [facility] [address] [id number] [address] [place] [phone] 15 Sep, 2019 Back pain M54.9 [facility] [address] [id number] [address] [place] [phone] 14 Sep, 2019 Generalized anxiety disorder F41.1 [facility] [address] [id number] [address] [place] [id number] 30 Aug, 2019 Radiculopathy, lumbar region M54.16 [facility] [address] [id number] [address] [place] [address] Aug, Back pain M54.9 [facility] [address] [id number] [address] [place] [phone] Aug, Lumbar radiculopathy M54.16 ; Generalized anxiety disorder F41.1 and Drug-induced constipation K59.03 [facility] [address] [id number] [address] [place] [id number] Jul, Radiculopathy, lumbar region M54.16 [facility] [address] [id number] [address] [place] [phone] Jul, [facility] [address] [id number] [address] [place] [id number] Jul, [facility] [address] [id number] [address] [place] [id number] Jul, Back pain M54.9 [facility] [address] [id number] [address] [place] [id number] Jul, Radiculopathy, lumbar region M54.16 [facility] [address] [id number] [address] [place] [phone] Jul, Radiculopathy, lumbar region M54.16 [facility] [address] [id number] [address] [place] [phone] Jun, Back pain M54.9 [facility] [address] [id number] [address] [place] [phone] Jun, [facility] [address] [id number] [address] [place] [phone] Jun, Radiculopathy, lumbar region M54.16 [facility] [address] [id number] [address] [place] [phone] Jun, [facility] [address] [id number] [address] [place] [phone] May, Back pain M54.9 [facility] [address] [id number] [address] [place] [phone] May, Cellulitis of other specifie d site L03.818 ; Dermatitis L30.9 and Lumbar radiculopathy M54.16 [facility] [address] [id number] [address] [place] [address] May, [facility] [address] [id number] [address] [place] [address] May, Back pain M54.9 [facility] [address] [id number] [address] [place] [phone] 05 May, 2019 [facility] [address] [id number] [address] [place] [id number] 04 May, 2019 Back pain M54.9 [facility] [address] [id number] [address] [place] [id number] 14 Apr, 2019 [facility] [address] [id number] [address] [place] [phone] Apr, Back pain M54.9 [facility] [address] [id number] [address] [place] [id number] Apr, Hyponatremia E87.1 [facility] [address] [id number] [address] [place] [phone] Apr, Hyponatremia E87.1 [facility] [address] [id number] [address] [place] [address] Mar, Arthritis M19.90 ; Impacted cerumen of right ear H61.21 and Hypertension I10 [facility] [address] [id number] [place] [id number] Mar, [facility] [address] [id number] [address] [place] [phone] Mar, Back pain M54.9 [facility] [address] [id number] [address] [place] [address] Feb, Back pain M54.9 [facility] [address] [id number] [address] [place] [phone] Feb, [facility] [address] [id number] [address] [place] [address] Feb, Dermatitis L30.9 [facility] [address] [id number] [address] [place] [phone] January, Dermatitis L30.9 [facility] [address] [id number] [address] [place] [id number] January, [facility] [address] [id number] [address] [place] [id number] January, Back pain M54.9 [facility] [address] [id number] [address] [place] [id number] Dec, [facility] [address] [facility] [id number] [address] [place] [address] Dec, Back pain M54.9 [facility] [address] [facility] [id number] [address] [place] [address] Dec, Lumbar radiculopathy M54.16 ; Arthritis M19.90 and Dyshydrosis L30.1 [facility] [address] [id number] [address] [place] [id number] Nov, Back pain M54.9 [facility] [address] [id number] [address] [place] [address] Nov, [facility] [address] [facility] [id number] [address] [place] [address] Oct, [facility] [address] [id number] [address] [place] [address] Oct, Back pain M54.9 [facility] [address] [facility] [id number] [address] [place] [id number] Oct, [facility] [address] [facility] [id number] [address] [place] [phone] Oct, [facility] [address] [id number] [address] [place] [id number] Sep, Back pain M54.9 [facility] [address] [id number] [address] [place] [phone] Sep, [facility] [address] [id number] [address] [place] [id number] Aug, Back pain M54.9 [facility] [address] [id number] [address] [place] [id number] Aug, Encounter for immunization Z 23 ; Arthritis M19.90 and Generalized anxiety disorder F41.1 [facility] [address] [id number] [address] [place] [phone] Aug, [facility] [address] [id number] [address] [place] [phone] Aug, [facility] [address] [id number] [address] [place] [id number] Jul, Back pain M54.9 [facility] [address] [id number] [address] [place] [phone] Jul, [facility] [address] [id number] [address] [place] [id number] Jul, [facility] [address] [id number] [address] [place] [address] Jun, Back pain M54.9 [facility] [address] [id number] [address] [place] [id number] Jun, [facility] [address] [id number] [address] [place] [id number] Jun, Back pain M54.9 [facility] [address] [id number] [address] [place] [address] May, Lumbar radiculopathy M54.16 ; Hypertension I10 and Generalized anxiety disorder F41.1 [facility] [address] [id number] [address] [place] [phone] May, Back pain M54.9 [facility] [address] [id number] [address] [place] [phone] Apr, [facility] [address] [id number] [address] [place] [phone] Apr, [facility] [address] [id number] [address] [place] [phone] Apr, Back pain M54.9 [facility] [address] [id number] [address] [place] [phone] Mar, Back pain M54.9 [facility] [address] [id number] [address] [place] [id number] Feb, [facility] [address] [id number] [address] [place] [id number] Feb, [facility] [address] [id number] [address] [place] [phone] Feb, [facility] [address] [id number] [address] [place] [phone] Feb, Back pain M54.9 [facility] [address] [id number] [address] [place] [phone] Feb, Back pain M54.9 ; Hypertensi on I10 ; Generalized anxiety disorder F41.1 and Venous insufficiency I87.2 [facility] [address] [id number] [address] [place] [id number] January, [facility] [address] [id number] [address] [place] [phone] January, Back pain M54.9 [facility] [address] [id number] [address] [place] [phone] Dec, [facility] [address] [id number] [address] [place] [phone] Dec, Back pain M54.9 [facility] [address] [id number] [address] [place] [phone] Nov, Back pain M54.9 [facility] [address] [id number] [address] [place] [id number] Nov, [facility] [address] [id number] [address] [place] [phone] Nov, Lumbar radiculopathy M54.16 ; Hypertension I10 ; Arthritis M19.90 and Back pain M54.9 [facility] [address] [id number] [address] [place] [id number] Oct, Back pain M54.9 [facility] [address] [id number] [address] [place] [id number] Oct, [facility] [address] [id number] [address] [place] [address] Sep, Back pain M54.9 [facility] [address] [id number] [address] [place] [phone] Sep, [facility] [address] [id number] [address] [place] [phone] Aug, Back pain M54.9 [facility] [address] [id number] [address] [place] [phone] Jul, Back pain M54.9 [facility] [address] [id number] [address] [place] [phone] 09 Jul, 2017 Encounter for immunization Z 23 ; Back pain M54.9 ; Hypertension I10 and Lumbar radiculopathy M54.16 [facility] [address] [id number] [address] [place] [id number] Jul, Back pain M54.9 [facility] [address] [id number] [address] [place] [phone] Jun, Vitamin D deficiency E55.9 [facility] [address] [id number] [address] [place] [phone] 04 Jun, 2017 Back pain M54.9 [facility] [address] [id number] [address] [place] [id number] 20 May, 2017 [facility] [address] [id number] [address] [place] [phone] 08 May, 2017 [facility] [address] [id number] [address] [place] [id number] 08 May, 2017 [facility] [address] [id number] [address] [place] [phone] May, Back pain M54.9 [facility] [address] [id number] [address] [place] [phone] Apr, Back pain M54.9 ; Hypertensi on I10 ; Arthritis M19.90 and Generalized anxiety disorder F41.1 [facility] [address] [id number] [address] [place] [phone] 08 Apr, 2017 Back pain M54.9 [facility] [address] [id number] [address] [place] [phone] Mar, Back pain M54.9 [facility] [address] [id number] [address] [place] [phone] 10 Mar, 2017 Vitamin D deficiency E55.9 [facility] [address] [id number] [address] [place] [phone] 15 Feb, 2017 Vitamin D deficiency E55.9 [facility] [address] [id number] [address] [place] [phone] 14 Feb, 2017 Vitamin D deficiency E55.9 [facility] [address] [id number] [address] [place] [phone] 13 Feb, 2017 Back pain M54.9 [facility] [address] [id number] [address] [place] [phone] January, Back pain M54.9 [facility] [address] [id number] [address] [place] [id number] January, Arthritis M19.90 [facility] [address] [id number] [address] [place] [address] January, Vitamin D deficiency E55.9 a nd Arthritis M19.90 [facility] [address] [facility] [id number] [address] [place] [phone] Dec, Medicare annual wellness vis it, initial Z00.00 and Encounter for immunization Z23 [facility] [address] [id number] [address] [place] [id number] Dec, Back pain M54.9 [facility] [address] [facility] [id number] [address] [place] [phone] Nov, Back pain M54.9 [facility] [address] [facility] [id number] [address] [place] [id number] 24 Oct, 2016 Back pain M54.9 [facility] [address] [facility] [id number] [address] [place] [phone] 14 Oct, 2016 COPD (chronic obstructive pu lmonary disease) J44.9 [facility] [address] [facility] [id number] [address] [place] [phone] 14 Oct, 2016 [facility] [address] [facility] [id number] [address] [place] [phone] 02 Oct, 2016 Hypertension I10 ; Back pain M54.9 and Encounter for immunization Z23 [facility] [address] [id number] [address] [place] [phone] Sep, [facility] [address] [facility] [id number] [address] [place] [phone] Sep, Back pain M54.9 [facility] [address] [facility] [id number] [address] [place] [phone] Sep, Back pain M54.9 [facility] [address] [facility] [id number] [address] [place] [id number] Aug, [facility] [address] [id number] [address] [place] [phone] Aug, Back pain M54.9 [facility] [address] [id number] [address] [place] [id number] Aug, [facility] [address] [id number] [address] [place] [phone] Aug, [facility] [address] [id number] [address] [place] [id number] Aug, Back pain M54.9 [facility] [address] [id number] [address] [place] [phone] Jul, [facility] [address] [id number] [address] [place] [id number] Jul, Back pain M54.9 [facility] [address] [id number] [address] [place] [id number] Jun, Back pain M54.9 ; Hypertensi on I10 ; Generalized anxiety disorder F41.1 and Encounter for immunization Z23 [facility] [address] [id number] [address] [place] [id number] Jun, [facility] [address] [id number] [address] [place] [id number] May, [facility] [address] [id number] [address] [place] [phone] Apr, [facility] [address] [id number] [address] [place] [phone] Apr, [facility] [address] [id number] [address] [place] [phone] Mar, [facility] [address] [id number] [address] [place] [phone] Mar, [facility] [address] [id number] [address] [place] [phone] Mar, [facility] [address] [id number] [address] [place] [phone] 20 Feb, 2016 Back pain M54.9 and Hyperten madelyn I10 [facility] [address] [id number] [address] [place] [id number] 17 Feb, 2016 Back pain M54.9 [facility] [address] [id number] [address] [place] [phone] Dec, COPD (chronic obstructive pu lmonary disease) J44.9 [facility] [address] [id number] [address] [place] [phone] Dec, [facility] [address] [id number] [address] [place] [phone] 18 Dec, 2015 Back pain M54.9 [facility] [address] [id number] [address] [place] [phone] 24 Nov, 2015 Back pain M54.9 [facility] [address] [id number] [address] [place] [phone] 14 Nov, 2015 COPD (chronic obstructive pu lmonary disease) J44.9 [facility] [address] [id number] [address] [place] [phone] 04 Nov, 2015 Hypertension I10 and Back pa in M54.9 [facility] [address] [id number] [address] [place] [phone] Oct, Hypertension I10 and Back pa in M54.9 [facility] [address] [id number] [address] [place] [id number] Oct, Back pain M54.9 [facility] [address] [id number] [address] [place] [id number] Sep, Back pain M54.9 [facility] [address] [id number] [address] [place] [phone] Sep, [facility] [address] [id number] [address] [place] [id number] Sep, [facility] [address] [id number] [address] [place] [phone] Sep, [facility] [address] [id number] [address] [place] [phone] Sep, [facility] [address] [id number] [address] [place] [phone] Aug, [facility] [address] [id number] [address] [place] [phone] Aug, [facility] [address] [id number] [address] [place] [phone] Aug, [facility] [address] [id number] [address] [place] [address] Aug, [facility] [address] [facility] [id number] [address] [place] [address] Aug, [facility] [address] [id number] [address] [place] [address] Jul, [facility] [address] [id number] [address] [place] [address] Jul, Back pain M54.9 ; Arthritis M19.90 ; Hypertension I10 and Encounter for immunization Z23 [facility] [address] [facility] [id number] [address] [place] [address] Jul, Generalized anxiety disorder F41.1 and Depressive disorder, not elsewhere classified F32.9 [facility] [address] [id number] [address] [place] [address] Jul, [facility] [address] [id number] [address] [place] [address] Jul, [facility] [address] [facility] [id number] [address] [place] [address] Jul, [facility] [address] [facility] [id number] [address] [place] [address] Jun, [facility] [address] [facility] [id number] [address] [place] [address] Jun, [facility] [address] [id number] [address] [place] [address] May, [facility] [address] [id number] [address] [place] [address] May, [facility] [address] [id number] [address] [place] [address] May, [facility] [address] [id number] [address] [place] [address] May, [facility] [address] [id number] [address] [place] [address] May, Benign essential hypertensio n 401.1 ; Anxiety state, unspecified 300.00 ; Back pain 724.5 and Arthritis 716.90 [facility] [address] [id number] [address] [place] [address] May, [facility] [address] [id number] [address] [place] [address] Apr, [facility] [address] [id number] [address] [place] [address] Apr, [facility] [address] [id number] [address] [place] [address] Apr, [facility] [address] [id number] [address] [place] [address] Mar, [facility] [address] [id number] [address] [place] [address] Mar, [facility] [address] [id number] [address] [place] [address] Mar, [facility] [address] [id number] [address] [place] [address] Feb, High risk medication use V58 .69 [facility] [address] [id number] [address] [place] [address] Feb, Benign essential hypertensio n 401.1 ; Anxiety state, unspecified 300.00 and Chronic pain 338.29 [facility] [address] [id number] [address] [place] [address] Feb, [facility] [address] [id number] [address] [place] [address] January, [facility] [address] [id number] [address] [place] [address] January, [facility] [address] [id number] [address] [place] [address] January, [facility] [address] [id number] [address] [place] [address] January, [facility] [address] [id number] [address] [place] [address] Dec, [facility] [address] [id number] [address] [place] [address] Dec, [facility] [address] [id number] [address] [place] [address] Nov, [facility] [address] [id number] [address] [place] [address] Nov, [facility] [address] [facility] [id number] [address] [place] [address] Nov, [facility] [address] [id number] [address] [place] [address] Nov, [facility] [address] [id number] [address] [place] [address] Oct, [facility] [address] [id number] [address] [place] [address] Oct, [facility] [address] [id number] [address] [place] [address] Oct, [facility] [address] [id number] [address] [place] [address] Oct, [facility] [address] [id number] [address] [place] [address], [place] [address] Oct, [facility] [address] [id number] [address] [place] [address], [place] [address] Sep, [facility] [address] [id number] [address] [place] [address], [place] [address] Sep, [facility] [address] [id number] [address] [place] [address], [place] [address] Sep, [facility] [address] [id number] [address] [place] [address], [place] [address] Sep, [facility] [address] [id number] [address] [place] [address], [place] [address] Aug, [facility] [address] [id number] [address] [place] [address], [place] [address] Aug, [facility] [address] [id number] [address] [place] [address], [place] [address] Aug, [facility] [address] [id number] [address] [place] [address], [place] [address] Aug, [facility] [address] [id number] [address] [place] [address], [place] [address] Aug, [facility] [address] [id number] [address] [place] [address], [place] [address] Aug, [facility] [address] [id number] [address] [place] [address], [place] [address] Jul, [facility] [address] [id number] [address] [place] [address], [place] [address] Jul, [facility] [address] [id number] [address] [place] [address], [place] [address] Jun, [facility] [address] [id number] [address] [place] [address], [place] [address] Jun, [facility] [address] [id number] [address] [place] [address], [place] [address] Jun, [facility] [address] [id number] [address] [place] [address], [place] [address] Jun, [facility] [address] [id number] [address] [place] [address], [place] [address] May, [facility] [address] [id number] [address] [place] [address], [place] [address] May, [facility] [address] [id number] [address] [place] [address], [place] [address] May, [facility] [address] [id number] [address] [place] [address], [place] [address] May, [facility] [address] [id number] [address] [place] [address], [place] [address] Apr, [facility] [address] [id number] [address] [place] [address], [place] [address] Apr, [facility] [address] [id number] [address] [place] [address], [place] [address] Apr, [facility] [address] [id number] [address] [place] [address], [place] [address] Apr, [facility] [address] [id number] [address] [place] [address], [place] [address] Apr, [facility] [address] [id number] [address] [place] [address], [place] [address] Apr, [facility] [address] [id number] [address] [place] [address], [place] [address] Mar, [facility] [address] [id number] [address] [place] [address], [place] [address] Mar, [facility] [address] [id number] [address] [place] [address], [place] [address] Mar, [facility] [address] [id number] [address] [place] [address], [place] [address] Mar, [facility] [address] [id number] [facility] [place] [address] Feb, [facility] [address] [id number] [address] [place] [address], [place] [address] Feb, [facility] [address] [id number] [address] [place] [address], [place] [address] Feb, [facility] [address] [id number] [address] [place] [address], [place] [address] January, [facility] [address] [id number] [address] [place] [address], [place] [address] January, [facility] [address] [id number] [address] [place] [address], [place] [address] January, [facility] [address] [id number] [address] [place] [address], [place] [address] January, [facility] [address] [id number] [address] [place] [address], [place] [address] January, [facility] [address] [id number] [address] [place] [address], [place] [address] January, [facility] [address] [id number] [address] [place] [address], [place] [address] January, [facility] [address] [id number] [address] [place] [address], [place] [address] January, [facility] [address] [id number] [address] [place] [address], [place] [address] Dec, [facility] [address] [id number] [address] [place] [address], [place] [address] Dec, [facility] [address] [id number] [address] [place] [address], [place] [address] Dec, [facility] [address] [id number] [address] [place] [address], [place] [address] Dec, [facility] [address] [id number] [facility] [place] [address] 07 Dec, 2013 [facility] [address] [id number] [address] [place] [address], [place] [address] Dec, [facility] [address] [id number] [address] [place] [address], [place] [address] Dec, [facility] [address] [id number] [address] [place] [address], [place] [address] Nov, [facility] [address] [id number] [address] [place] [address], [place] [address] Nov, [facility] [address] [id number] [address] [place] [address], [place] [address] Nov, [facility] [address] [id number] [address] [place] [address], [place] [address] Nov, [facility] [address] [id number] [address] [place] [address], [place] [address] Nov, [facility] [address] [id number] [address] [place] [address], [place] [address] 18 Nov, 2013 [facility] [address] [id number] [address] [place] [address], [place] [address] Nov, [facility] [address] [id number] [address] [place] [address], [place] [address] Nov, [facility] [address] [id number] [address] [place] [address], [place] [address] Nov, [facility] [address] [id number] [address] [place] [address], [place] [address] Nov, [facility] [address] [id number] [address] [place] [address], [place] [address] Nov, [facility] [address] [id number] [address] [place] [address], [place] [address] Nov, [facility] [address] [id number] [address] [place] [address], [place] [address] 07 Oct, 2013 [facility] [address] [id number] [address] [place] [address], [place] [address] 07 Oct, 2013 [facility] [address] [id number] [address] [place] [address], [place] [address] Sep, [facility] [address] [id number] [address] [place] [address], [place] [address] Sep, [facility] [address] [id number] [address] [place] [address], [place] [address] Sep, [facility] [address] [id number] [address] [place] [address], [place] [address] Sep, [facility] [address] [id number] [address] [place] [address], [place] [address] Aug, [facility] [address] [id number] [address] [place] [address], [place] [address] Aug, [facility] [address] [id number] [address] [place] [address], [place] [address] 15 Jul, 2013 [facility] [address] [id number] [address] [place] [address], [place] [address] 15 Jul, 2013 [facility] [address] [id number] [address] [place] [address] 15 Jul, 2013 [facility] [address] [id number] [address] [place] [address] 15 Jul, 2013 [facility] [address] [id number] [address] [place] [address] Jun, [facility] [address] [id number] [address] [place] [address], [place] [address] Jun, [facility] [address] [id number] [address] [place] [address], [place] [address] Jun, [facility] [address] [id number] [address] [place] [address] 18 Jun, 2013 [facility] [address] [id number] [address] [place] [address], [place] [address] 14 Jun, 2013 [facility] [address] [id number] [address] [place] [address], [place] [address] 14 Jun, 2013 [facility] [address] [id number] [address] [place] [address], [place] [address] May, [facility] [address] [id number] [address] [place] [address], [place] [address] 18 May, 2013 [facility] [address] [id number] [address] [place] [address], [place] [address] 16 May, 2013 [facility] [address] [id number] [address] [place] [address], [place] [address] Apr, [facility] [address] [id number] [address] [place] [address], [place] [address] Apr, [facility] [address] [id number] [address] [place] [address], [place] [address] Apr, [facility] [address] [id number] [address] [place] [address], [place] [address] Mar, [facility] [address] [id number] [address] [place] [address], [place] [address] Mar, [facility] [address] [id number] [address] [place] [address], [place] [address] Feb, [facility] [address] [id number] [address] [place] [address], [place] [address] Feb, [facility] [address] [id number] [address] [place] [address], [place] [address] Feb, [facility] [address] [id number] [address] [place] [address], [place] [address] January, [facility] [address] [id number] [address] [place] [address], [place] [address] January, [facility] [address] [id number] [address] [place] [address], [place] [address] January, [facility] [address] [id number] [address] [place] [address], [place] [address] 15 Dec, 2012 [facility] [address] [id number] [address] [place] [address], [place] [address] 11 Dec, 2012 [facility] [address] [id number] [address] [place] [address], [place] [address] 08 Dec, 2012 [facility] [address] [id number] [address] [place] [address], [place] [address] 19 Nov, 2012 [facility] [address] [id number] [address] [place] [address], [place] [address] 14 Nov, 2012 [facility] [address] [id number] [address] [place] [address], [place] [address] 13 Nov, 2012 [facility] [address] [id number] [address] [place] [address], [place] [address] 18 Oct, 2012 [facility] [address] [id number] [address] [place] [address], [place] [address] 14 Oct, 2012 [facility] [address] [id number] [address] [place] [address], [place] [address] Sep, [facility] [address] [id number] [address] [place] [address], [place] [address] 24 Sep, 2012 [facility] [address] [id number] [address] [place] [address], [place] [address] Sep, [facility] [address] [id number] [address] [place] [address], [place] [address] Aug, [facility] [address] [id number] [address] [place] [address], [place] [address] Aug, [facility] [address] [id number] [address] [place] [address], [place] [address] 17 Aug, 2012 [facility] [address] [id number] [address] [place] [address], [place] [address] 07 Aug, 2012 [facility] [address] [id number] [address] [place] [address], [place] [address] Aug, [facility] [address] [id number] [address] [place] [address], [place] [address] Jul, [facility] [address] [id number] [address] [place] [address], [place] [address] Jul, [facility] [address] [id number] [address] [place] [address], [place] [address] Jul, [facility] [address] [id number] [address] [place] [address], [place] [address] Jul, [facility] [address] [id number] [address] [place] [address], [place] [address] Jul, [facility] [address] [id number] [address] [place] [address], [place] [address] Jul, [facility] [address] [id number] [address] [place] [address], [place] [address] Jun, [facility] [address] [id number] [address] [place] [address], [place] [address] Jun, [facility] [address] [id number] [address] [place] [address], [place] [address] Jun, [facility] [address] [id number] [address] [place] [address], [place] [address] Jun, [facility] [address] [id number] [address] [place] [address] May, [facility] [address] [id number] [address] [place] [id number] 06 May, 2012 [facility] [address] [id number] [address] [place] [address], [place] [address] 16 Apr, 2012 [facility] [address] [id number] [address] [place] [address] 15 Apr, 2012 [facility] [address] [id number] [address] [place] [address], [place] [address] 14 Apr, 2012 [facility] [address] [id number] [address] [place] [address], [place] [address] 17 Mar, 2012 [facility] [address] [id number] [address] [place] [address], [place] [address] 13 Mar, 2012 [facility] [address] [id number] [address] [place] [address], [place] [address] Feb, [facility] [address] [id number] [address] [place] [address], [place] [address] January, [facility] [address] [id number] [address] [place] [address], [place] [address] January, [facility] [address] [id number] [address] [place] [address], [place] [address] Dec, [facility] [address] [id number] [address] [place] [address], [place] [address] Dec, [facility] [address] [id number] [address] [place] [address], [place] [address] Dec, [facility] [address] [id number] [address] [place] [address], [place] [address] 04 Dec, 2011 [facility] [address] [id number] [address] [place] [address], [place] [address] 30 Nov, 2011 [facility] [address] [id number] [address] [place] [address], [place] [address] 23 Nov, 2011 [facility] [address] [id number] [address] [place] [address], [place] [address] 15 Nov, 2011 [facility] [address] [id number] [address] [place] [address], [place] [address] 02 Nov, 2011 [facility] [address] [id number] [address] [place] [address], [place] [address] 14 Oct, 2011 [facility] [address] [id number] [address] [place] [address], [place] [address] 09 Oct, 2011 [facility] [address] [id number] [address] [place] [address], [place] [address] 13 Sep, 2011 [facility] [address] [id number] [address] [place] [address], [place] [address] 30 Aug, 2011 [facility] [address] [id number] [address] [place] [address], [place] [address] 23 Aug, 2011 [facility] [address] [id number] [address] [place] [address], [place] [address] Aug, [facility] [address] [id number] [address] [place] [address], [place] [address] 29 Jul, 2011 [facility] [address] [id number] [address] [place] [address], [place] [address] Jul, [facility] [address] [id number] [address] [place] [address], [place] [address] Jul, [facility] [address] [id number] [address] [place] [address], [place] [address] 20 Jun, 2011 [facility] [address] [id number] [address] [place] [address], [place] [address] 14 Jun, 2011 [facility] [address] [id number] [address] [place] [address], [place] [address] 13 Jun, 2011 [facility] [address] [id number] [address] [place] [address] 13 Jun, 2011 [facility] [address] [id number] [address] [place] [address], [place] [address] 19 May, 2011 [facility] [address] [id number] [address] [place] [address] January, [facility] [address] [id number] [address] [place] [address], [place] [address] Aug, [facility] [address] [id number] [address] [place] [address], [place] [address] 27 Aug, 2010 [facility] [address] [id number] [address] [place] [address] 10 Aug, 2010 [facility] [address] [id number] [address] [place] [address] 10 Aug, 2010 [facility] [address] [id number] [address] [place] [id number] 11 Jul, 2010 [facility] [address] [id number] [address] [place] [address] 11 Jul, 2010 [facility] [address] [facility] [id number] [address] [place] [address] 15 Jun, 2010 [facility] [address] [facility] [id number] [address] [place] [address] 15 Jun, 2010 [facility] [address] [facility] [id number] [address] [place] [id number] 16 May, 2010 [facility] [address] [facility] [id number] [address] [place] [phone] January, IMMUNIZATIONS No Known Immunizations SOCIAL HISTORY Never Assessed REASON FOR VISIT PLAN OF CARE VITAL SIGNS Height 62 in 2014-05-12 Weight 154 lbs 2014-05-12 Temperature 98 degrees Fahrenheit 2014-05-12 Heart Rate 68 bpm 2014-05-12 Respiratory Rate 20 2014-05-12 Blood pressure systolic 140 mmHg 2014-05-12 Blood pressure diastolic 74 mmHg 2014-05-12 MEDICATIONS Unknown Medications RESULTS No Results PROCEDURES [...]
--- OUTSIDE RECORDS SUMMARY | 2020-02-13 16:28 | XMS REPORT ---
Author Author Cami GLEZ Organization [facility] Address [address] [place] [address] Care Team Providers Care Tankman Name Role Phone DON GLEZ Unavailable PROBLEMS Type Condition ICD9-CM Code IUM92-OZ Code Onset Dates Condition S tatus SNOMED Code Problem Hypertension I10 Active 3633471 3 Problem Generalized anxiety disorder F41.1 A ctive 82401854 Problem Depressive disorder, not elsewhere classified F32. 9 Active 98396542 Problem Basal cell carcinoma (BCC) of skin of right ear C4 4.212 Active 160013588 Problem Back pain M54.9 Active 527327221 Problem Skin ulcer of left foot with fat layer exposed L97 .522 Active 76578218 Problem Arthritis M19.90 Active 9329034 Problem COPD (chronic obstructive pulmonary disease) J44.9 Active 81056858 Problem Vitamin D deficiency E55.9 Active 76148230 Problem Lumbar radiculopathy M54.16 Active 078841594 Problem Venous insufficiency I87.2 Active 85750506 ALLERGIES No Information ENCOUNTERS Encounter Location Date Diagnosis [place] [address] [place] [id number] [address] [place] [phone] 16 Feb, 2020 [place] [address] [facility] [id number] [address] [place] [phone] 20 Nov, 2019 [place] [address] [facility] [id number] [address] [place] [phone] 18 Nov, 2019 [place] [address] [place] [id number] [address] [place] [phone] 17 Nov, 2019 Weight loss R63.4 ; Skin ulc er of left foot with fat layer exposed L97.522 ; Basal cell carcinoma (BCC) of skin of right ear C44.212 ; Hypertension I10 and Lumbar radiculopathy M54.16 [place] [address] [id number] [address] [place] [phone] 11 Nov, 2019 Back pain M54.9 and Radiculo peg, lumbar region M54.16 [facility] [address] [id number] [address] [place] [phone] 20 Oct, 2019 Radiculopathy, lumbar region M54.16 [facility] [address] [id number] [address] [place] [id number] 19 Oct, 2019 [facility] [address] [id number] [address] [place] [id number] 11 Oct, 2019 Back pain M54.9 [facility] [address] [id number] [address] [place] [phone] 10 Oct, 2019 [facility] [address] [id number] [address] [place] [phone] 06 Oct, 2019 Skin sore L98.9 [facility] [address] [id number] [address] [place] [phone] 24 Sep, 2019 Radiculopathy, lumbar region M54.16 [facility] [address] [id number] [address] [place] [phone] 15 Sep, 2019 Back pain M54.9 [facility] [address] [id number] [address] [place] [phone] 14 Sep, 2019 Generalized anxiety disorder F41.1 [facility] [address] [id number] [address] [place] [phone] 30 Aug, 2019 Radiculopathy, lumbar region M54.16 [facility] [address] [id number] [address] [place] [phone] 18 Aug, 2019 Back pain M54.9 [facility] [address] [id number] [address] [place] [phone] 17 Aug, 2019 Lumbar radiculopathy M54.16 ; Generalized anxiety disorder F41.1 and Drug-induced constipation K59.03 [place] [id number] [id number] [address] [place] [id number] Jul, Radiculopathy, lumbar region M54.16 [facility] [address] [id number] [address] [place] [id number] Jul, [facility] [address] [id number] [address] [place] [phone] Jul, [facility] [address] [id number] [address] [place] [phone] Jul, Back pain M54.9 [facility] [address] [id number] [address] [place] [phone] Jul, Radiculopathy, lumbar region M54.16 [facility] [address] [id number] [address] [place] [phone] Jul, Radiculopathy, lumbar region M54.16 [facility] [address] [id number] [address] [place] [phone] Jun, Back pain M54.9 [facility] [address] [id number] [address] [place] [phone] Jun, [facility] [address] [id number] [address] [place] [phone] Jun, Radiculopathy, lumbar region M54.16 [facility] [address] [id number] [address] [place] [id number] Jun, [facility] [address] [id number] [address] [place] [address] May, Back pain M54.9 [facility] [address] [id number] [address] [place] [id number] May, Cellulitis of other specifie d site L03.818 ; Dermatitis L30.9 and Lumbar radiculopathy M54.16 [facility] [address] [id number] [address] [place] [phone] May, [facility] [address] [id number] [address] [place] [phone] May, Back pain M54.9 [facility] [address] [id number] [address] [place] [phone] 05 May, 2019 [facility] [address] [id number] [address] [place] [phone] May, Back pain M54.9 [facility] [address] [id number] [address] [place] [phone] Apr, [facility] [address] [id number] [address] [place] [phone] Apr, Back pain M54.9 [facility] [address] [id number] [address] [place] [phone] Apr, Hyponatremia E87.1 [facility] [address] [facility] [id number] [address] [place] [phone] Apr, Hyponatremia E87.1 [facility] [address] [id number] [address] [place] [id number] Mar, Arthritis M19.90 ; Impacted cerumen of right ear H61.21 and Hypertension I10 [facility] [id number] [place] [id number] Mar, [facility] [address] [id number] [address] [place] [id number] Mar, Back pain M54.9 [facility] [address] [id number] [address] [place] [phone] Feb, Back pain M54.9 [facility] [address] [facility] [id number] [address] [place] [address] Feb, [facility] [address] [facility] [id number] [address] [place] [phone] Feb, Dermatitis L30.9 [facility] [address] [id number] [address] [place] [phone] January, Dermatitis L30.9 [facility] [address] [id number] [address] [place] [phone] January, [facility] [address] [id number] [address] [place] [address] January, Back pain M54.9 [facility] [address] [id number] [address] [place] [phone] Dec, [facility] [address] [id number] [address] [place] [address] Dec, Back pain M54.9 [facility] [address] [id number] [address] [place] [id number] Dec, Lumbar radiculopathy M54.16 ; Arthritis M19.90 and Dyshydrosis L30.1 [facility] [address] [id number] [address] [place] [address] Nov, Back pain M54.9 [facility] [address] [id number] [address] [place] [phone] Nov, [facility] [address] [id number] [address] [place] [phone] Oct, [facility] [address] [id number] [address] [place] [address] Oct, Back pain M54.9 [facility] [address] [id number] [address] [place] [phone] Oct, [facility] [address] [id number] [address] [place] [id number] Oct, [facility] [address] [id number] [address] [place] [id number] Sep, Back pain M54.9 [facility] [address] [id number] [address] [place] [phone] Sep, [facility] [address] [id number] [address] [place] [address] Aug, Back pain M54.9 [facility] [address] [id number] [address] [place] [phone] Aug, Encounter for immunization Z 23 ; Arthritis M19.90 and Generalized anxiety disorder F41.1 [facility] [address] [id number] [address] [place] [phone] Aug, [facility] [address] [id number] [address] [place] [phone] Aug, [facility] [address] [id number] [address] [place] [address] Jul, Back pain M54.9 [facility] [address] [id number] [address] [place] [phone] Jul, [facility] [address] [id number] [address] [place] [phone] Jul, [facility] [address] [id number] [address] [place] [phone] Jun, Back pain M54.9 [facility] [address] [id number] [address] [place] [phone] Jun, [facility] [address] [id number] [address] [place] [address] Jun, Back pain M54.9 [facility] [address] [id number] [address] [place] [phone] 11 May, 2018 Lumbar radiculopathy M54.16 ; Hypertension I10 and Generalized anxiety disorder F41.1 [facility] [address] [id number] [address] [place] [phone] 06 May, 2018 Back pain M54.9 [facility] [address] [id number] [address] [place] [phone] Apr, [facility] [address] [id number] [address] [place] [phone] Apr, [facility] [address] [id number] [address] [place] [phone] Apr, Back pain M54.9 [facility] [address] [id number] [address] [place] [phone] Mar, Back pain M54.9 [facility] [address] [id number] [address] [place] [phone] Feb, [facility] [address] [id number] [address] [place] [phone] Feb, [facility] [address] [id number] [address] [place] [phone] Feb, [facility] [address] [id number] [address] [place] [phone] Feb, Back pain M54.9 [facility] [address] [id number] [address] [place] [address] Feb, Back pain M54.9 ; Hypertensi on I10 ; Generalized anxiety disorder F41.1 and Venous insufficiency I87.2 [facility] [address] [id number] [address] [place] [address] January, [facility] [address] [id number] [address] [place] [phone] January, Back pain M54.9 [facility] [address] [id number] [address] [place] [phone] Dec, [facility] [address] [id number] [address] [place] [phone] Dec, Back pain M54.9 [facility] [address] [id number] [address] [place] [address] Nov, Back pain M54.9 [facility] [address] [id number] [address] [place] [address] Nov, [facility] [address] [id number] [address] [place] [address] Nov, Lumbar radiculopathy M54.16 ; Hypertension I10 ; Arthritis M19.90 and Back pain M54.9 [facility] [address] [id number] [address] [place] [address] Oct, Back pain M54.9 [facility] [address] [id number] [address] [place] [phone] Oct, [facility] [address] [id number] [address] [place] [phone] Sep, Back pain M54.9 [facility] [address] [id number] [address] [place] [phone] Sep, [facility] [address] [id number] [address] [place] [id number] Aug, Back pain M54.9 [facility] [address] [id number] [address] [place] [phone] Jul, Back pain M54.9 [facility] [address] [id number] [address] [place] [phone] Jul, Encounter for immunization Z 23 ; Back pain M54.9 ; Hypertension I10 and Lumbar radiculopathy M54.16 [facility] [address] [id number] [address] [place] [address] Jul, Back pain M54.9 [facility] [address] [id number] [address] [place] [phone] Jun, Vitamin D deficiency E55.9 [facility] [address] [id number] [address] [place] [phone] Jun, Back pain M54.9 [facility] [address] [id number] [address] [place] [phone] May, [facility] [address] [id number] [address] [place] [phone] 08 May, 2017 [facility] [address] [id number] [address] [place] [phone] 08 May, 2017 [facility] [address] [id number] [address] [place] [address] May, Back pain M54.9 [facility] [address] [id number] [address] [place] [phone] 15 Apr, 2017 Back pain M54.9 ; Hypertensi on I10 ; Arthritis M19.90 and Generalized anxiety disorder F41.1 [facility] [address] [id number] [address] [place] [id number] 08 Apr, 2017 Back pain M54.9 [facility] [address] [id number] [address] [place] [phone] 12 Mar, 2017 Back pain M54.9 [facility] [address] [id number] [address] [place] [phone] 10 Mar, 2017 Vitamin D deficiency E55.9 [facility] [address] [id number] [address] [place] [phone] 15 Feb, 2017 Vitamin D deficiency E55.9 [facility] [address] [id number] [address] [place] [id number] 14 Feb, 2017 Vitamin D deficiency E55.9 [facility] [address] [id number] [address] [place] [phone] 13 Feb, 2017 Back pain M54.9 [facility] [address] [id number] [address] [place] [address] January, Back pain M54.9 [facility] [address] [id number] [address] [place] [address] January, Arthritis M19.90 [facility] [address] [facility] [id number] [address] [place] [address] January, Vitamin D deficiency E55.9 a nd Arthritis M19.90 [facility] [address] [id number] [address] [place] [address] 28 Dec, 2016 Medicare annual wellness vis it, initial Z00.00 and Encounter for immunization Z23 [facility] [address] [facility] [id number] [address] [place] [phone] 18 Dec, 2016 Back pain M54.9 [facility] [address] [facility] [id number] [address] [place] [phone] Nov, Back pain M54.9 [facility] [address] [id number] [address] [place] [phone] 24 Oct, 2016 Back pain M54.9 [facility] [address] [facility] [id number] [address] [place] [phone] 14 Oct, 2016 COPD (chronic obstructive pu lmonary disease) J44.9 [facility] [address] [facility] [id number] [address] [place] [phone] Oct, [facility] [address] [facility] [id number] [address] [place] [address] Oct, Hypertension I10 ; Back pain M54.9 and Encounter for immunization Z23 [facility] [address] [facility] [id number] [address] [place] [phone] Sep, [facility] [address] [id number] [address] [place] [phone] Sep, Back pain M54.9 [facility] [address] [facility] [id number] [address] [place] [id number] Sep, Back pain M54.9 [facility] [address] [id number] [address] [place] [phone] Aug, [facility] [address] [facility] [id number] [address] [place] [phone] Aug, Back pain M54.9 [facility] [address] [facility] [id number] [address] [place] [phone] Aug, [facility] [address] [id number] [address] [place] [phone] Aug, [facility] [address] [id number] [address] [place] [phone] Aug, Back pain M54.9 [facility] [address] [id number] [address] [place] [id number] Jul, [facility] [address] [id number] [address] [place] [phone] Jul, Back pain M54.9 [facility] [address] [id number] [address] [place] [address] Jun, Back pain M54.9 ; Hypertensi on I10 ; Generalized anxiety disorder F41.1 and Encounter for immunization Z23 [facility] [address] [id number] [address] [place] [phone] Jun, [facility] [address] [id number] [address] [place] [phone] May, [facility] [address] [id number] [address] [place] [phone] Apr, [facility] [address] [id number] [address] [place] [id number] Apr, [facility] [address] [id number] [address] [place] [phone] Mar, [facility] [address] [id number] [address] [place] [phone] Mar, [facility] [address] [id number] [address] [place] [phone] Mar, [facility] [address] [id number] [address] [place] [phone] Feb, Back pain M54.9 and Hyperten madelyn I10 [facility] [address] [id number] [address] [place] [phone] Feb, Back pain M54.9 [facility] [address] [id number] [address] [place] [phone] Dec, COPD (chronic obstructive pu lmonary disease) J44.9 [facility] [address] [id number] [address] [place] [phone] Dec, [facility] [address] [id number] [address] [place] [address] Dec, Back pain M54.9 [facility] [address] [id number] [address] [place] [phone] Nov, Back pain M54.9 [facility] [address] [id number] [address] [place] [id number] Nov, COPD (chronic obstructive pu lmonary disease) J44.9 [facility] [address] [id number] [address] [place] [phone] Nov, Hypertension I10 and Back pa in M54.9 [facility] [address] [id number] [address] [place] [phone] Oct, Hypertension I10 and Back pa in M54.9 [facility] [address] [id number] [address] [place] [phone] Oct, Back pain M54.9 [facility] [address] [id number] [address] [place] [phone] Sep, Back pain M54.9 [facility] [address] [id number] [address] [place] [phone] Sep, [facility] [address] [id number] [address] [place] [id number] Sep, [facility] [address] [id number] [address] [place] [phone] Sep, [facility] [address] [id number] [address] [place] [phone] Sep, [facility] [address] [id number] [address] [place] [phone] Aug, [facility] [address] [id number] [address] [place] [phone] Aug, [facility] [address] [id number] [address] [place] [phone] Aug, [facility] [address] [id number] [address] [place] [phone] Aug, [facility] [address] [id number] [address] [place] [phone] Aug, [facility] [address] [id number] [address] [place] [phone] Jul, [facility] [address] [facility] [id number] [address] [place] [id number] Jul, Back pain M54.9 ; Arthritis M19.90 ; Hypertension I10 and Encounter for immunization Z23 [facility] [address] [id number] [address] [place] [id number] Jul, Generalized anxiety disorder F41.1 and Depressive disorder, not elsewhere classified F32.9 [facility] [address] [id number] [address] [place] [id number] Jul, [facility] [address] [id number] [address] [place] [phone] Jul, [facility] [address] [id number] [address] [place] [phone] Jul, [facility] [address] [id number] [address] [place] [id number] Jun, [facility] [address] [facility] [id number] [address] [place] [id number] Jun, [facility] [address] [facility] [id number] [address] [place] [phone] May, [facility] [address] [facility] [id number] [address] [place] [phone] May, [facility] [address] [id number] [address] [place] [phone] May, [facility] [address] [id number] [address] [place] [id number] May, [facility] [address] [id number] [address] [place] [phone] May, Benign essential hypertensio n 401.1 ; Anxiety state, unspecified 300.00 ; Back pain 724.5 and Arthritis 716.90 [facility] [address] [id number] [address] [place] [id number] May, [facility] [facility] [address] [id number] [address] [place] [address] Apr, [facility] [address] [id number] [address] [place] [address] Apr, [facility] [address] [id number] [address] [place] [address] Apr, [facility] [address] [id number] [address] [place] [address] Mar, [facility] [address] [id number] [address] [place] [address] Mar, [facility] [address] [id number] [address] [place] [address] Mar, [facility] [address] [id number] [address] [place] [address] Feb, High risk medication use V58 .69 [facility] [address] [id number] [address] [place] [address] Feb, Benign essential hypertensio n 401.1 ; Anxiety state, unspecified 300.00 and Chronic pain 338.29 [facility] [address] [id number] [address] [place] [address] Feb, [facility] [address] [id number] [address] [place] [address], [place] [address] January, [facility] [address] [id number] [address] [place] [address], [place] [address] January, [facility] [address] [id number] [address] [place] [address], [place] [address] January, [facility] [address] [id number] [address] [place] [address], [place] [address] January, [facility] [address] [id number] [address] [place] [address], [place] [address] Dec, [facility] [address] [id number] [address] [place] [address], [place] [address] Dec, [facility] [address] [id number] [address] [place] [address], [place] [address] Nov, [facility] [address] [id number] [address] [place] [address], [place] [address] Nov, [facility] [address] [id number] [address] [place] [address], [place] [address] Nov, [facility] [address] [id number] [address] [place] [address], [place] [address] Nov, [facility] [address] [id number] [address] [place] [address], [place] [address] Oct, [facility] [address] [id number] [address] [place] [address], [place] [address] Oct, [facility] [address] [id number] [address] [place] [address], [place] [address] Oct, [facility] [address] [id number] [address] [place] [address], [place] [address] Oct, [facility] [address] [id number] [address] [place] [address], [place] [address] Oct, [facility] [address] [id number] [address] [place] [address] [place] [address] Sep, [facility] [address] [id number] [address] [place] [address], [place] [address] Sep, [facility] [address] [id number] [address] [place] [address], [place] [address] Sep, [facility] [address] [id number] [address] [place] [address], [place] [address] Sep, [facility] [address] [id number] [address] [place] [address], [place] [address] Aug, [facility] [address] [id number] [address] [place] [address], [place] [address] Aug, [facility] [address] [id number] [address] [place] [address], [place] [address] Aug, [facility] [address] [id number] [address] [place] [address], [place] [address] Aug, [facility] [address] [id number] [address] [place] [address], [place] [address] Aug, [facility] [address] [id number] [address] [place] [address], [place] [address] Aug, [facility] [address] [id number] [address] [place] [address], [place] [address] Jul, [facility] [address] [id number] [address] [place] [address], [place] [address] Jul, [facility] [address] [id number] [address] [place] [address], [place] [address] Jun, [facility] [address] [id number] [address] [place] [address], [place] [address] Jun, [facility] [address] [id number] [address] [place] [address], [place] [address] Jun, [facility] [address] [id number] [address] [place] [address], [place] [address] Jun, [facility] [address] [id number] [facility] [place] [address] May, [facility] [address] [id number] [facility] [place] [address] May, [facility] [address] [id number] [address] [place] [address], [place] [address] May, [facility] [address] [id number] [address] [place] [address], [place] [address] May, [facility] [address] [id number] [address] [place] [address], [place] [address] Apr, [facility] [address] [id number] [address] [place] [address], [place] [address] Apr, [facility] [address] [id number] [address] [place] [address], [place] [address] Apr, [facility] [address] [id number] [address] [place] [address], [place] [address] Apr, [facility] [address] [id number] [address] [place] [address], [place] [address] Apr, [facility] [address] [id number] [address] [place] [address], [place] [address] Apr, [facility] [address] [id number] [address] [place] [address], [place] [address] Mar, [facility] [address] [id number] [address] [place] [address], [place] [address] Mar, [facility] [address] [id number] [address] [place] [address], [place] [address] Mar, [facility] [address] [id number] [address] [place] [address], [place] [address] Mar, [facility] [address] [id number] [address] [place] [address], [place] [address] Feb, [facility] [address] [id number] [address] [place] [address], [place] [address] Feb, [facility] [address] [id number] [facility] [place] [address] Feb, [facility] [address] [id number] [address] [place] [address], [place] [address] January, [facility] [address] [id number] [address] [place] [address], [place] [address] January, [facility] [address] [id number] [address] [place] [address], [place] [address] January, [facility] [address] [id number] [address] [place] [address], [place] [address] January, [facility] [address] [id number] [address] [place] [address], [place] [address] January, [facility] [address] [id number] [address] [place] [address], [place] [address] January, [facility] [address] [id number] [address] [place] [address], [place] [address] January, [facility] [address] [id number] [address] [place] [address], [place] [address] January, [facility] [address] [id number] [address] [place] [address], [place] [address] Dec, [facility] [address] [id number] [address] [place] [address], [place] [address] Dec, [facility] [address] [id number] [address] [place] [address], [place] [address] Dec, [facility] [address] [id number] [address] [place] [address], [place] [address] Dec, [facility] [address] [id number] [address] [place] [address], [place] [address] Dec, [facility] [address] [id number] [address] [place] [address], [place] [address] Dec, [facility] [address] [id number] [facility] [place] [address] 02 Dec, 2013 [facility] [address] [id number] [address] [place] [address], [place] [address] Nov, [facility] [address] [id number] [facility] [place] [address] Nov, [facility] [address] [id number] [address] [place] [address], [place] [address] Nov, [facility] [address] [id number] [address] [place] [address], [place] [address] Nov, [facility] [address] [id number] [address] [place] [address], [place] [address] Nov, [facility] [address] [id number] [address] [place] [address], [place] [address] 18 Nov, 2013 [facility] [address] [id number] [address] [place] [address], [place] [address] Nov, [facility] [address] [id number] [address] [place] [address], [place] [address] Nov, [facility] [address] [id number] [address] [place] [address], [place] [address] 07 Nov, 2013 [facility] [address] [id number] [address] [place] [address], [place] [address] 07 Nov, 2013 [facility] [address] [id number] [address] [place] [address], [place] [address] 07 Nov, 2013 [facility] [address] [id number] [address] [place] [address], [place] [address] 07 Nov, 2013 [facility] [address] [id number] [address] [place] [address], [place] [address] 07 Oct, 2013 [facility] [address] [id number] [address] [place] [address], [place] [address] 07 Oct, 2013 [facility] [address] [id number] [address] [place] [address], [place] [address] Sep, [facility] [address] [id number] [address] [place] [address], [place] [address] Sep, [facility] [address] [id number] [address] [place] [address], [place] [address] Sep, [facility] [address] [id number] [address] [place] [address], [place] [address] Sep, [facility] [address] [id number] [address] [place] [address], [place] [address] Aug, [facility] [address] [id number] [address] [place] [address], [place] [address] Aug, [facility] [address] [id number] [address] [place] [address], [place] [address] 15 Jul, 2013 [facility] [address] [id number] [address] [place] [address], [place] [address] 15 Jul, 2013 [facility] [address] [id number] [address] [place] [address] 15 Jul, 2013 [facility] [address] [id number] [address] [place] [address], [place] [address] 15 Jul, 2013 [facility] [address] [id number] [address] [place] [address] 28 Jun, 2013 [facility] [address] [id number] [address] [place] [address] 28 Jun, 2013 [facility] [address] [id number] [address] [place] [address] 18 Jun, 2013 [facility] [address] [id number] [address] [place] [address], [place] [address] 18 Jun, 2013 [facility] [address] [id number] [address] [place] [address] 14 Jun, 2013 [facility] [address] [id number] [address] [place] [address] 14 Jun, 2013 [facility] [address] [id number] [address] [place] [address] May, [facility] [address] [id number] [address] [place] [address], [place] [address] 18 May, 2013 [facility] [address] [id number] [address] [place] [address], [place] [address] May, [facility] [address] [id number] [address] [place] [address], [place] [address] Apr, [facility] [address] [id number] [address] [place] [address], [place] [address] Apr, [facility] [address] [id number] [address] [place] [address], [place] [address] Apr, [facility] [address] [id number] [address] [place] [address], [place] [address] Mar, [facility] [address] [id number] [address] [place] [address], [place] [address] Mar, [facility] [address] [id number] [address] [place] [address], [place] [address] Feb, [facility] [address] [id number] [address] [place] [address], [place] [address] Feb, [facility] [address] [id number] [address] [place] [address], [place] [address] Feb, [facility] [address] [id number] [address] [place] [address], [place] [address] January, [facility] [address] [id number] [address] [place] [address], [place] [address] January, [facility] [address] [id number] [address] [place] [address], [place] [address] January, [facility] [address] [id number] [address] [place] [address], [place] [address] 15 Dec, 2012 [facility] [address] [id number] [address] [place] [address], [place] [address] Dec, [facility] [address] [id number] [address] [place] [address], [place] [address] 08 Dec, 2012 [facility] [address] [id number] [address] [place] [address], [place] [address] 19 Nov, 2012 [facility] [address] [id number] [address] [place] [address], [place] [address] 14 Nov, 2012 [facility] [address] [id number] [address] [place] [address], [place] [address] 13 Nov, 2012 [facility] [address] [id number] [address] [place] [address], [place] [address] 18 Oct, 2012 [facility] [address] [id number] [address] [place] [address], [place] [address] 14 Oct, 2012 [facility] [address] [id number] [address] [place] [address], [place] [address] 31 Sep, 2012 [facility] [address] [id number] [address] [place] [address], [place] [address] 24 Sep, 2012 [facility] [address] [id number] [address] [place] [address], [place] [address] Sep, [facility] [address] [id number] [address] [place] [address], [place] [address] Aug, [facility] [address] [id number] [address] [place] [address], [place] [address] Aug, [facility] [address] [id number] [address] [place] [address], [place] [address] Aug, [facility] [address] [id number] [address] [place] [address], [place] [address] Aug, [facility] [address] [id number] [address] [place] [address], [place] [address] Aug, [facility] [address] [id number] [address] [place] [address], [place] [address] Jul, [facility] [address] [id number] [address] [place] [address], [place] [address] Jul, [facility] [address] [id number] [address] [place] [address], [place] [address] Jul, [facility] [address] [id number] [address] [place] [address], [place] [address] Jul, [facility] [address] [id number] [address] [place] [address], [place] [address] Jul, [facility] [address] [id number] [address] [place] [address], [place] [address] Jul, [facility] [address] [id number] [address] [place] [address], [place] [address] Jun, [facility] [address] [id number] [address] [place] [address], [place] [address] Jun, [facility] [address] [id number] [address] [place] [address], [place] [address] Jun, [facility] [address] [id number] [address] [place] [address], [place] [address] Jun, [facility] [address] [id number] [address] [place] [address], [place] [address] May, [facility] [address] [id number] [address] [place] [address], [place] [address] May, [facility] [address] [id number] [address] [place] [address], [place] [address] 16 Apr, 2012 [facility] [address] [id number] [address] [place] [address] 15 Apr, 2012 [facility] [address] [id number] [address] [place] [address], [place] [address] 14 Apr, 2012 [facility] [address] [id number] [address] [place] [address], [place] [address] 17 Mar, 2012 [facility] [address] [id number] [address] [place] [address], [place] [address] Mar, [facility] [address] [id number] [address] [place] [address], [place] [address] Feb, [facility] [address] [id number] [address] [place] [address], [place] [address] January, [facility] [address] [id number] [address] [place] [address], [place] [address] January, [facility] [address] [id number] [address] [place] [address], [place] [address] Dec, [facility] [address] [id number] [address] [place] [address], [place] [address] Dec, [facility] [address] [id number] [address] [place] [address], [place] [address] Dec, [facility] [address] [id number] [address] [place] [address], [place] [address] Dec, [facility] [address] [id number] [address] [place] [address], [place] [address] Nov, [facility] [address] [id number] [address] [place] [address], [place] [address] Nov, [facility] [address] [id number] [address] [place] [address], [place] [address] 15 Nov, 2011 [facility] [address] [id number] [address] [place] [address], [place] [address] Nov, [facility] [address] [id number] [address] [place] [address], [place] [address] 14 Oct, 2011 [facility] [address] [id number] [address] [place] [address], [place] [address] Oct, [facility] [address] [id number] [address] [place] [address], [place] [address] Sep, [facility] [address] [id number] [address] [place] [address], [place] [address] Aug, [facility] [address] [id number] [address] [place] [address], [place] [address] Aug, [facility] [address] [id number] [address] [place] [address], [place] [address] 22 Aug, 2011 [facility] [address] [id number] [address] [place] [address], [place] [address] 29 Jul, 2011 [facility] [address] [id number] [address] [place] [address], [place] [address] Jul, [facility] [address] [id number] [address] [place] [address], [place] [address] Jul, [facility] [address] [id number] [address] [place] [address], [place] [address] 20 Jun, 2011 [facility] [address] [id number] [address] [place] [address], [place] [address] 14 Jun, 2011 [facility] [address] [id number] [address] [place] [address], [place] [address] 13 Jun, 2011 [facility] [address] [id number] [address] [place] [address], [place] [address] 13 Jun, 2011 [facility] [address] [id number] [address] [place] [address], [place] [address] 19 May, 2011 [facility] [address] [id number] [address] [place] [address] January, [facility] [address] [id number] [address] [place] [address], [place] [address] Aug, [facility] [address] [id number] [address] [place] [address] 27 Aug, 2010 [facility] [address] [id number] [address] [place] [address], [place] [address] 10 Aug, 2010 [facility] [address] [id number] [address] [place] [address], [place] [address] Aug, [facility] [address] [id number] [address] [place] [id number] 11 Jul, 2010 [facility] [address] [id number] [address] [place] [address] Jul, [facility] [address] [facility] [id number] [address] [place] [address] 15 Jun, 2010 [facility] [address] [facility] [id number] [address] [place] [address] 15 Jun, 2010 [facility] [address] [facility] [id number] [address] [place] [id number] 16 May, 2010 [facility] [address] [facility] [id number] [address] [place] [id number] January, IMMUNIZATIONS No Known Immunizations SOCIAL HISTORY [...]
--- OUTSIDE RECORDS SUMMARY | 2020-02-13 16:28 | XMS REPORT ---
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 9 Active 49096301 Problem Basal cell carcinoma (BCC) of skin of right ear C4 4.212 Active 958646559 Problem Back pain M54.9 Active 233964460 Problem Skin ulcer of left foot with fat layer exposed L97 .522 Active 51562399 Problem Arthritis M19.90 Active 6740719 Problem COPD (chronic obstructive pulmonary disease) J44.9 Active 51065868 Problem Vitamin D deficiency E55.9 Active 56278039 Problem Lumbar radiculopathy M54.16 Active 484004379 Problem Venous insufficiency I87.2 Active 17579845 ALLERGIES No Information ENCOUNTERS Encounter Location Date Diagnosis [place] [address] [facility] [id number] [address] [place] [id number] Feb, [place] [address] [facility] [id number] [address] [place] [phone] Dec, [place] [address] [id number] [address] [place] [id number] Nov, [place] [address] [facility] [id number] [address] [place] [id number] 18 Nov, 2019 [place] [address] [facility] [id number] [address] [place] [id number] 17 Nov, 2019 Weight loss R63.4 ; Skin ulc er of left foot with fat layer exposed L97.522 ; Basal cell carcinoma (BCC) of skin of right ear C44.212 ; Hypertension I10 and Lumbar radiculopathy M54.16 [facility] [address] [id number] [address] [place] [id number] 11 Nov, 2019 Back pain M54.9 and Radiculo peg, lumbar region M54.16 [facility] [address] [id number] [address] [place] [id number] 20 Oct, 2019 Radiculopathy, lumbar region M54.16 [facility] [address] [id number] [address] [place] [id number] 19 Oct, 2019 [facility] [address] [id number] [address] [place] [id number] 11 Oct, 2019 Back pain M54.9 [facility] [address] [id number] [address] [place] [id number] 10 Oct, 2019 [facility] [address] [id number] [address] [place] [id number] 06 Oct, 2019 Skin sore L98.9 [facility] [address] [id number] [address] [place] [id number] 24 Sep, 2019 Radiculopathy, lumbar region M54.16 [facility] [address] [id number] [address] [place] [id number] 15 Sep, 2019 Back pain M54.9 [facility] [address] [id number] [address] [place] [id number] 14 Sep, 2019 Generalized anxiety disorder F41.1 [facility] [address] [id number] [address] [place] [id number] 30 Aug, 2019 Radiculopathy, lumbar region M54.16 [facility] [address] [id number] [address] [place] [id number] 18 Aug, 2019 Back pain M54.9 [facility] [address] [id number] [address] [place] [id number] Aug, Lumbar radiculopathy M54.16 ; Generalized anxiety disorder F41.1 and Drug-induced constipation K59.03 [facility] [address] [id number] [address] [place] [id number] Jul, Radiculopathy, lumbar region M54.16 [facility] [address] [id number] [address] [place] [id number] Jul, [facility] [address] [id number] [address] [place] [id number] Jul, [facility] [address] [id number] [address] [place] [id number] Jul, Back pain M54.9 [facility] [address] [id number] [address] [place] [id number] Jul, Radiculopathy, lumbar region M54.16 [facility] [address] [id number] [address] [place] [id number] Jul, Radiculopathy, lumbar region M54.16 [facility] [address] [id number] [address] [place] [id number] Jun, Back pain M54.9 [facility] [address] [id number] [address] [place] [id number] Jun, [facility] [address] [id number] [address] [place] [id number] Jun, Radiculopathy, lumbar region M54.16 [facility] [address] [id number] [address] [place] [id number] Jun, [facility] [address] [id number] [address] [place] [id number] May, Back pain M54.9 [facility] [address] [id number] [address] [place] [id number] May, Cellulitis of other specifie d site L03.818 ; Dermatitis L30.9 and Lumbar radiculopathy M54.16 [facility] [address] [id number] [address] [place] [phone] May, [facility] [address] [id number] [address] [place] [id number] 27 May, 2019 Back pain M54.9 [facility] [address] [id number] [address] [place] [id number] 05 May, 2019 [facility] [address] [id number] [address] [place] [id number] 04 May, 2019 Back pain M54.9 [facility] [address] [facility] [id number] [address] [place] [id number] 14 Apr, 2019 [facility] [address] [facility] [id number] [address] [place] [id number] 08 Apr, 2019 Back pain M54.9 [facility] [address] [id number] [address] [place] [phone] Apr, Hyponatremia E87.1 [facility] [address] [facility] [id number] [address] [place] [id number] Apr, Hyponatremia E87.1 [facility] [address] [facility] [id number] [address] [place] [id number] Mar, Arthritis M19.90 ; Impacted cerumen of right ear H61.21 and Hypertension I10 [facility] [id number] [place] [id number] Mar, [facility] [address] [id number] [address] [place] [phone] Mar, Back pain M54.9 [facility] [address] [id number] [address] [place] [id number] Feb, Back pain M54.9 [facility] [address] [facility] [id number] [address] [place] [phone] Feb, [facility] [address] [id number] [address] [place] [id number] Feb, Dermatitis L30.9 [facility] [address] [id number] [address] [place] [id number] January, Dermatitis L30.9 [facility] [address] [id number] [address] [place] [id number] January, [facility] [address] [facility] [id number] [address] [place] [phone] January, Back pain M54.9 [facility] [address] [id number] [address] [place] [id number] Dec, [facility] [address] [id number] [address] [place] [id number] Dec, Back pain M54.9 [facility] [address] [id number] [address] [place] [id number] Dec, Lumbar radiculopathy M54.16 ; Arthritis M19.90 and Dyshydrosis L30.1 [facility] [address] [id number] [address] [place] [id number] Nov, Back pain M54.9 [facility] [address] [id number] [address] [place] [id number] Nov, [facility] [address] [id number] [address] [place] [id number] Oct, [facility] [address] [id number] [address] [place] [id number] Oct, Back pain M54.9 [facility] [address] [id number] [address] [place] [id number] Oct, [facility] [address] [id number] [address] [place] [id number] Oct, [facility] [address] [id number] [address] [place] [id number] Sep, Back pain M54.9 [facility] [address] [id number] [address] [place] [id number] Sep, [facility] [address] [id number] [address] [place] [id number] Aug, Back pain M54.9 [facility] [address] [id number] [address] [place] [id number] 14 Aug, 2018 Encounter for immunization Z 23 ; Arthritis M19.90 and Generalized anxiety disorder F41.1 [facility] [address] [id number] [address] [place] [id number] Aug, [facility] [address] [id number] [address] [place] [id number] Aug, [facility] [address] [id number] [address] [place] [id number] Jul, Back pain M54.9 [facility] [address] [id number] [address] [place] [id number] Jul, [facility] [address] [id number] [address] [place] [id number] Jul, [facility] [address] [id number] [address] [place] [id number] Jun, Back pain M54.9 [facility] [address] [id number] [address] [place] [id number] Jun, [facility] [address] [id number] [address] [place] [id number] 04 Jun, 2018 Back pain M54.9 [facility] [address] [id number] [address] [place] [id number] 11 May, 2018 Lumbar radiculopathy M54.16 ; Hypertension I10 and Generalized anxiety disorder F41.1 [facility] [address] [id number] [address] [place] [id number] 06 May, 2018 Back pain M54.9 [facility] [address] [id number] [address] [place] [id number] Apr, [facility] [address] [id number] [address] [place] [id number] Apr, [facility] [address] [id number] [address] [place] [id number] Apr, Back pain M54.9 [facility] [address] [id number] [address] [place] [id number] Mar, Back pain M54.9 [facility] [address] [id number] [address] [place] [id number] Feb, [facility] [address] [id number] [address] [place] [id number] Feb, [facility] [address] [id number] [address] [place] [id number] Feb, [facility] [address] [id number] [address] [place] [id number] Feb, Back pain M54.9 [facility] [address] [id number] [address] [place] [id number] Feb, Back pain M54.9 ; Hypertensi on I10 ; Generalized anxiety disorder F41.1 and Venous insufficiency I87.2 [facility] [address] [id number] [address] [place] [id number] January, [facility] [address] [id number] [address] [place] [id number] January, Back pain M54.9 [facility] [address] [id number] [address] [place] [id number] Dec, [facility] [address] [id number] [address] [place] [id number] Dec, Back pain M54.9 [facility] [address] [id number] [address] [place] [id number] Nov, Back pain M54.9 [facility] [address] [id number] [address] [place] [id number] Nov, [facility] [address] [id number] [address] [place] [id number] Nov, Lumbar radiculopathy M54.16 ; Hypertension I10 ; Arthritis M19.90 and Back pain M54.9 [facility] [address] [id number] [address] [place] [id number] Oct, Back pain M54.9 [facility] [address] [id number] [address] [place] [id number] Oct, [facility] [address] [id number] [address] [place] [id number] Sep, Back pain M54.9 [facility] [address] [id number] [address] [place] [id number] Sep, [facility] [address] [id number] [address] [place] [id number] Aug, Back pain M54.9 [facility] [address] [id number] [address] [place] [id number] Jul, Back pain M54.9 [facility] [address] [id number] [address] [place] [id number] Jul, Encounter for immunization Z 23 ; Back pain M54.9 ; Hypertension I10 and Lumbar radiculopathy M54.16 [facility] [address] [id number] [address] [place] [id number] Jul, Back pain M54.9 [facility] [address] [id number] [address] [place] [phone] Jun, Vitamin D deficiency E55.9 [facility] [address] [id number] [address] [place] [id number] Jun, Back pain M54.9 [facility] [address] [id number] [address] [place] [id number] 20 May, 2017 [facility] [address] [id number] [address] [place] [id number] 08 May, 2017 [facility] [address] [id number] [address] [place] [id number] 08 May, 2017 [facility] [address] [id number] [address] [place] [id number] May, Back pain M54.9 [facility] [address] [id number] [address] [place] [id number] 15 Apr, 2017 Back pain M54.9 ; Hypertensi on I10 ; Arthritis M19.90 and Generalized anxiety disorder F41.1 [facility] [address] [id number] [address] [place] [id number] Apr, Back pain M54.9 [facility] [address] [id number] [address] [place] [id number] 12 Mar, 2017 Back pain M54.9 [facility] [address] [id number] [address] [place] [id number] 10 Mar, 2017 Vitamin D deficiency E55.9 [facility] [address] [id number] [address] [place] [id number] 15 Feb, 2017 Vitamin D deficiency E55.9 [facility] [address] [id number] [address] [place] [id number] 14 Feb, 2017 Vitamin D deficiency E55.9 [facility] [address] [id number] [address] [place] [id number] 13 Feb, 2017 Back pain M54.9 [facility] [address] [id number] [address] [place] [phone] January, Back pain M54.9 [facility] [address] [id number] [address] [place] [id number] January, Arthritis M19.90 [facility] [address] [id number] [address] [place] [id number] January, Vitamin D deficiency E55.9 a nd Arthritis M19.90 [facility] [address] [facility] [id number] [address] [place] [id number] Dec, Medicare annual wellness vis it, initial Z00.00 and Encounter for immunization Z23 [facility] [address] [facility] [id number] [address] [place] [id number] Dec, Back pain M54.9 [facility] [address] [facility] [id number] [address] [place] [id number] Nov, Back pain M54.9 [facility] [address] [facility] [id number] [address] [place] [id number] 24 Oct, 2016 Back pain M54.9 [facility] [address] [facility] [id number] [address] [place] [id number] 14 Oct, 2016 COPD (chronic obstructive pu lmonary disease) J44.9 [facility] [address] [facility] [id number] [address] [place] [id number] 14 Oct, 2016 [facility] [address] [facility] [id number] [address] [place] [id number] 02 Oct, 2016 Hypertension I10 ; Back pain M54.9 and Encounter for immunization Z23 [facility] [address] [facility] [id number] [address] [place] [id number] Sep, [facility] [address] [facility] [id number] [address] [place] [id number] Sep, Back pain M54.9 [facility] [address] [id number] [address] [place] [id number] Sep, Back pain M54.9 [facility] [address] [facility] [id number] [address] [place] [id number] Aug, [facility] [address] [facility] [id number] [address] [place] [id number] Aug, Back pain M54.9 [facility] [address] [id number] [address] [place] [id number] Aug, [facility] [address] [id number] [address] [place] [id number] Aug, [facility] [address] [id number] [address] [place] [id number] Aug, Back pain M54.9 [facility] [address] [id number] [address] [place] [id number] Jul, [facility] [address] [id number] [address] [place] [id number] Jul, Back pain M54.9 [facility] [address] [id number] [address] [place] [id number] Jun, Back pain M54.9 ; Hypertensi on I10 ; Generalized anxiety disorder F41.1 and Encounter for immunization Z23 [facility] [address] [id number] [address] [place] [id number] Jun, [facility] [address] [id number] [address] [place] [id number] May, [facility] [address] [id number] [address] [place] [id number] Apr, [facility] [address] [id number] [address] [place] [id number] Apr, [facility] [address] [id number] [address] [place] [id number] Mar, [facility] [address] [id number] [address] [place] [id number] Mar, [facility] [address] [id number] [address] [place] [id number] Mar, [facility] [address] [id number] [address] [place] [id number] Feb, Back pain M54.9 and Hyperten madelyn I10 [facility] [address] [id number] [address] [place] [id number] 17 Feb, 2016 Back pain M54.9 [facility] [address] [id number] [address] [place] [id number] Dec, COPD (chronic obstructive pu lmonary disease) J44.9 [facility] [address] [id number] [address] [place] [id number] Dec, [facility] [address] [id number] [address] [place] [id number] Dec, Back pain M54.9 [facility] [address] [id number] [address] [place] [id number] 24 Nov, 2015 Back pain M54.9 [facility] [address] [id number] [address] [place] [id number] Nov, COPD (chronic obstructive pu lmonary disease) J44.9 [facility] [address] [id number] [address] [place] [id number] 04 Nov, 2015 Hypertension I10 and Back pa in M54.9 [facility] [address] [id number] [address] [place] [id number] Oct, Hypertension I10 and Back pa in M54.9 [facility] [address] [id number] [address] [place] [phone] Oct, Back pain M54.9 [facility] [address] [id number] [address] [place] [id number] Sep, Back pain M54.9 [facility] [address] [id number] [address] [place] [id number] Sep, [facility] [address] [id number] [address] [place] [phone] Sep, [facility] [address] [id number] [address] [place] [phone] Sep, [facility] [address] [id number] [address] [place] [phone] Sep, [facility] [address] [id number] [address] [place] [phone] Aug, [facility] [address] [id number] [address] [place] [phone] Aug, [facility] [address] [id number] [address] [place] [id number] Aug, [facility] [address] [id number] [address] [place] [id number] Aug, [facility] [address] [id number] [address] [place] [phone] Aug, [facility] [address] [facility] [id number] [address] [place] [phone] Jul, [facility] [address] [id number] [address] [place] [id number] Jul, Back pain M54.9 ; Arthritis M19.90 ; Hypertension I10 and Encounter for immunization Z23 [facility] [address] [id number] [address] [place] [phone] Jul, Generalized anxiety disorder F41.1 and Depressive disorder, not elsewhere classified F32.9 [facility] [address] [id number] [address] [place] [phone] Jul, [facility] [address] [id number] [address] [place] [phone] Jul, [facility] [address] [id number] [address] [place] [phone] Jul, [facility] [address] [facility] [id number] [address] [place] [phone] Jun, [facility] [address] [facility] [id number] [address] [place] [id number] Jun, [facility] [address] [facility] [id number] [address] [place] [phone] May, [facility] [address] [id number] [address] [place] [phone] May, [facility] [address] [id number] [address] [place] [phone] May, [facility] [address] [id number] [address] [place] [phone] May, [facility] [address] [id number] [address] [place] [phone] May, Benign essential hypertensio n 401.1 ; Anxiety state, unspecified 300.00 ; Back pain 724.5 and Arthritis 716.90 [facility] [address] [id number] [address] [place] [phone] May, [facility] [address] [id number] [address] [place] [place] [id number] Apr, [facility] [address] [id number] [address] [place] [address] Apr, [facility] [address] [id number] [address] [place] [address] Apr, [facility] [address] [id number] [address] [place] [address] Mar, [facility] [address] [id number] [address] [place] [id number] Mar, [facility] [address] [id number] [address] [place] [id number] Mar, [facility] [address] [id number] [address] [place] [address] Feb, High risk medication use V58 .69 [facility] [address] [id number] [address] [place] [id number] 15 Feb, 2015 Benign essential hypertensio n 401.1 ; Anxiety state, unspecified 300.00 and Chronic pain 338.29 [facility] [address] [id number] [address] [place] [address], [place] [address] Feb, [facility] [address] [id number] [address] [place] [address], [place] [address] January, [facility] [address] [id number] [address] [place] [address], [place] [address] January, [facility] [address] [id number] [address] [place] [address], [place] [address] January, [facility] [address] [id number] [address] [place] [address], [place] [address] January, [facility] [address] [id number] [address] [place] [address], [place] [address] Dec, [facility] [address] [id number] [address] [place] [address], [place] [address] Dec, [facility] [address] [id number] [address] [place] [id number] Nov, [facility] [address] [id number] [address] [place] [address], [place] [address] Nov, [facility] [address] [id number] [address] [place] [address] Nov, [facility] [address] [id number] [address] [place] [id number] Nov, [facility] [address] [id number] [address] [place] [id number] Oct, [facility] [address] [id number] [address] [place] [address], [place] [address] Oct, [facility] [address] [id number] [address] [place] [address] Oct, [facility] [address] [id number] [address] [place] [id number] Oct, [facility] [address] [id number] [address] [place] [id number] Oct, [facility] [address] [id number] [address] [place] [address], [place] [address] Sep, [facility] [address] [id number] [address] [place] [address], [place] [address] Sep, [facility] [address] [id number] [address] [place] [address], [place] [address] Sep, [facility] [address] [id number] [address] [place] [address], [place] [address] Sep, [facility] [address] [id number] [address] [place] [address], [place] [address] Aug, [facility] [address] [id number] [address] [place] [address], [place] [address] Aug, [facility] [address] [id number] [address] [place] [address], [place] [address] Aug, [facility] [address] [id number] [address] [place] [address], [place] [address] Aug, [facility] [address] [id number] [address] [place] [address], [place] [address] Aug, [facility] [address] [id number] [address] [place] [address], [place] [address] Aug, [facility] [address] [id number] [address] [place] [address], [place] [address] Jul, [facility] [address] [id number] [address] [place] [id number] Jul, [facility] [address] [id number] [address] [place] [address], [place] [address] Jun, [facility] [address] [id number] [address] [place] [address], [place] [address] Jun, [facility] [address] [id number] [address] [place] [address], [place] [address] Jun, [facility] [address] [id number] [facility] [address] Jun, [facility] [address] [id number] [facility] [address] May, [facility] [address] [id number] [address] [place] [address], [place] [address] May, [facility] [address] [id number] [address] [place] [address], [place] [address] May, [facility] [address] [id number] [address] [place] [address], [place] [address] May, [facility] [address] [id number] [address] [place] [address], [place] [address] Apr, [facility] [address] [id number] [address] [place] [address], [place] [address] Apr, [facility] [address] [id number] [address] [place] [address], [place] [address] Apr, [facility] [address] [id number] [address] [place] [address], [place] [address] Apr, [facility] [address] [id number] [address] [place] [address], [place] [address] Apr, [facility] [address] [id number] [address] [place] [address], [place] [address] Apr, [facility] [address] [id number] [address] [place] [address], [place] [address] Mar, [facility] [address] [id number] [address] [place] [address], [place] [address] Mar, [facility] [address] [id number] [address] [place] [address], [place] [address] Mar, [facility] [address] [id number] [address] [place] [address], [place] [address] Mar, [facility] [address] [id number] [address] [place] [address], [place] [address] Feb, [facility] [address] [id number] [facility] [address] Feb, [facility] [address] [id number] [address] [place] [address], [place] [address] Feb, [facility] [address] [id number] [address] [place] [address], [place] [address] January, [facility] [address] [id number] [address] [place] [address], [place] [address] January, [facility] [address] [id number] [address] [place] [address], [place] [address] January, [facility] [address] [id number] [address] [place] [address], [place] [address] January, [facility] [address] [id number] [address] [place] [address], [place] [address] January, [facility] [address] [id number] [address] [place] [address], [place] [address] January, [facility] [address] [id number] [address] [place] [address], [place] [address] January, [facility] [address] [id number] [address] [place] [address], [place] [address] January, [facility] [address] [id number] [address] [place] [address], [place] [address] Dec, [facility] [address] [id number] [address] [place] [address], [place] [address] Dec, [facility] [address] [id number] [address] [place] [address], [place] [address] Dec, [facility] [address] [id number] [address] [place] [address], [place] [address] Dec, [facility] [address] [id number] [address] [place] [address], [place] [address] Dec, [facility] [address] [id number] [facility] [address] 02 Dec, 2013 [facility] [address] [id number] [address] [place] [address], [place] [address] Dec, [facility] [address] [id number] [address] [place] [address], [place] [address] Nov, [facility] [address] [id number] [address] [place] [address], [place] [address] Nov, [facility] [address] [id number] [address] [place] [address], [place] [address] Nov, [facility] [address] [id number] [address] [place] [address], [place] [address] Nov, [facility] [address] [id number] [address] [place] [address], [place] [address] Nov, [facility] [address] [id number] [address] [place] [address], [place] [address] Nov, [facility] [address] [id number] [address] [place] [address], [place] [address] Nov, [facility] [address] [id number] [address] [place] [address], [place] [address] Nov, [facility] [address] [id number] [address] [place] [address], [place] [address] Nov, [facility] [address] [id number] [address] [place] [address], [place] [address] Nov, [facility] [address] [id number] [address] [place] [address], [place] [address] Nov, [facility] [address] [id number] [address] [place] [address], [place] [address] Nov, [facility] [address] [id number] [address] [place] [address], [place] [address] 07 Oct, 2013 [facility] [address] [id number] [address] [place] [address], [place] [address] 07 Oct, 2013 [facility] [address] [id number] [address] [place] [address], [place] [address] Sep, [facility] [address] [id number] [address] [place] [address], [place] [address] Sep, [facility] [address] [id number] [address] [place] [address], [place] [address] Sep, [facility] [address] [id number] [address] [place] [address], [place] [address] Sep, [facility] [address] [id number] [address] [place] [address], [place] [address] Aug, [facility] [address] [id number] [address] [place] [address], [place] [address] Aug, [facility] [address] [id number] [address] [place] [address], [place] [address] 15 Jul, 2013 [facility] [address] [id number] [address] [place] [id number] 15 Jul, 2013 [facility] [address] [id number] [address] [place] [address], [place] [address] 15 Jul, 2013 [facility] [address] [id number] [address] [place] [address] 15 Jul, 2013 [facility] [address] [id number] [address] [place] [address] 28 Jun, 2013 [facility] [address] [id number] [address] [place] [id number] 28 Jun, 2013 [facility] [address] [id number] [address] [place] [address], [place] [address] 18 Jun, 2013 [facility] [address] [id number] [address] [place] [address], [place] [address] 18 Jun, 2013 [facility] [address] [id number] [address] [place] [address] 14 Jun, 2013 [facility] [address] [id number] [address] [place] [address] 14 Jun, 2013 [facility] [address] [id number] [address] [place] [address], [place] [address] 20 May, 2013 [facility] [address] [id number] [address] [place] [address], [place] [address] 18 May, 2013 [facility] [address] [id number] [address] [place] [address], [place] [address] 16 May, 2013 [facility] [address] [id number] [address] [place] [address], [place] [address] Apr, [facility] [address] [id number] [address] [place] [address], [place] [address] Apr, [facility] [address] [id number] [address] [place] [address], [place] [address] Apr, [facility] [address] [id number] [address] [place] [address], [place] [address] Mar, [facility] [address] [id number] [address] [place] [address], [place] [address] Mar, [facility] [address] [id number] [address] [place] [address], [place] [address] Feb, [facility] [address] [id number] [address] [place] [address], [place] [address] Feb, [facility] [address] [id number] [address] [place] [address], [place] [address] Feb, [facility] [address] [id number] [address] [place] [address], [place] [address] January, [facility] [address] [id number] [address] [place] [address], [place] [address] January, [facility] [address] [id number] [address] [place] [address], [place] [address] January, [facility] [address] [id number] [address] [place] [address], [place] [address] 15 Dec, 2012 [facility] [address] [id number] [address] [place] [address], [place] [address] 11 Dec, 2012 [facility] [address] [id number] [address] [place] [address], [place] [address] 08 Dec, 2012 [facility] [address] [id number] [address] [place] [address], [place] [address] 19 Nov, 2012 [facility] [address] [id number] [address] [place] [address], [place] [address] 14 Nov, 2012 [facility] [address] [id number] [address] [place] [address], [place] [address] 13 Nov, 2012 [facility] [address] [id number] [address] [place] [address], [place] [address] 18 Oct, 2012 [facility] [address] [id number] [address] [place] [address], [place] [address] 14 Oct, 2012 [facility] [address] [id number] [address] [place] [address], [place] [address] Sep, [facility] [address] [id number] [address] [place] [address], [place] [address] Sep, [facility] [address] [id number] [address] [place] [address], [place] [address] Sep, [facility] [address] [id number] [address] [place] [address], [place] [address] Aug, [facility] [address] [id number] [address] [place] [address], [place] [address] Aug, [facility] [address] [id number] [address] [place] [address], [place] [address] 17 Aug, 2012 [facility] [address] [id number] [address] [place] [address], [place] [address] 07 Aug, 2012 [facility] [address] [id number] [address] [place] [address], [place] [address] 07 Aug, 2012 [facility] [address] [id number] [address] [place] [address], [place] [address] Jul, [facility] [address] [id number] [address] [place] [address], [place] [address] Jul, [facility] [address] [id number] [address] [place] [address], [place] [address] Jul, [facility] [address] [id number] [address] [place] [address], [place] [address] Jul, [facility] [address] [id number] [address] [place] [address], [place] [address] Jul, [facility] [address] [id number] [address] [place] [address], [place] [address] Jul, [facility] [address] [id number] [address] [place] [address], [place] [address] Jun, [facility] [address] [id number] [address] [place] [address], [place] [address] Jun, [facility] [address] [id number] [address] [place] [address], [place] [address] Jun, [facility] [address] [id number] [address] [place] [address], [place] [address] Jun, [facility] [address] [id number] [address] [place] [address], [place] [address] May, [facility] [address] [id number] [address] [place] [address] 06 May, 2012 [facility] [address] [id number] [address] [place] [address] 16 Apr, 2012 [facility] [address] [id number] [address] [place] [address], [place] [address] 15 Apr, 2012 [facility] [address] [id number] [address] [place] [address], [place] [address] 14 Apr, 2012 [facility] [address] [id number] [address] [place] [address], [place] [address] Mar, [facility] [address] [id number] [address] [place] [address], [place] [address] 13 Mar, 2012 [facility] [address] [id number] [address] [place] [address], [place] [address] Feb, [facility] [address] [id number] [address] [place] [address], [place] [address] 24 Jan, 2012 [facility] [address] [id number] [address] [place] [address], [place] [address] January, [facility] [address] [id number] [address] [place] [address], [place] [address] Dec, [facility] [address] [id number] [address] [place] [address], [place] [address] Dec, [facility] [address] [id number] [address] [place] [address], [place] [address] Dec, [facility] [address] [id number] [address] [place] [address], [place] [address] Dec, [facility] [address] [id number] [address] [place] [address], [place] [address] 30 Nov, 2011 [facility] [address] [id number] [address] [place] [address], [place] [address] 23 Nov, 2011 [facility] [address] [id number] [address] [place] [address], [place] [address] 15 Nov, 2011 [facility] [address] [id number] [address] [place] [address], [place] [address] Nov, [facility] [address] [id number] [address] [place] [address], [place] [address] 14 Oct, 2011 [facility] [address] [id number] [address] [place] [address], [place] [address] 09 Oct, 2011 [facility] [address] [id number] [address] [place] [address], [place] [address] Sep, [facility] [address] [id number] [address] [place] [address], [place] [address] 30 Aug, 2011 [facility] [address] [id number] [address] [place] [address], [place] [address] 23 Aug, 2011 [facility] [address] [id number] [address] [place] [address], [place] [address] Aug, [facility] [address] [id number] [address] [place] [address], [place] [address] 29 Jul, 2011 [facility] [address] [id number] [address] [place] [address], [place] [address] Jul, [facility] [address] [id number] [address] [place] [address], [place] [address] Jul, [facility] [address] [id number] [address] [place] [address], [place] [address] 20 Jun, 2011 [facility] [address] [id number] [address] [place] [address], [place] [address] 14 Jun, 2011 [facility] [address] [id number] [address] [place] [address], [place] [address] 13 Jun, 2011 [facility] [address] [id number] [address] [place] [address], [place] [address] Jun, [facility] [address] [id number] [address] [place] [id number] 19 May, 2011 [facility] [address] [id number] [address] [place] [address], [place] [address] January, [facility] [address] [id number] [address] [place] [id number] Aug, [facility] [address] [id number] [address] [place] [address], [place] [address] Aug, [facility] [address] [id number] [address] [place] [address], [place] [address] 10 Aug, 2010 [facility] [address] [id number] [address] [place] [id number] 10 Aug, 2010 [facility] [address] [id number] [address] [place] [id number] 11 Jul, 2010 [facility] [address] [facility] [id number] [address] [place] [id number] 11 Jul, 2010 [facility] [address] [facility] [id number] [address] [place] [id number] 15 Jun, 2010 [facility] [address] [facility] [id number] [address] [place] [id number] 15 Jun, 2010 [facility] [address] [facility] [id number] [address] [place] [id number] 16 May, 2010 [facility] [address] [facility] [id number] [address] [place] [id number] January, IMMUNIZATIONS No Known Immunizations SOCIAL HISTORY Never Assessed REASON FOR VISIT PLAN OF CARE VITAL SIGNS Height 62 in 2011-12-15 Weight 146 lbs 2011-12-15 Temperature 97.6 degrees Fahrenheit 2011-12-15 Heart Rate 76 bpm 2011-12-15 Respiratory Rate 22 2011-12-15 Blood pressure systolic 180 mmHg 2011-12-15 Blood pressure diastolic 80 mmHg 2011-12-15 MEDICATIONS Unknown Medications RESULTS No Results PROCEDURES Procedure Date Ordered Result Body Site ASSAY THYROID STIM HORMONE December 15, 2011 COMPREHEN METABOLIC PANEL December 15, 2011 VENIPUNCT, ROUTINE* December 15, 2011 INSTRUCTIONS MEDICATIONS ADMINISTERED No Known Medications MEDICAL [...]
--- OUTSIDE RECORDS SUMMARY | 2020-02-13 16:28 | XMS REPORT ---
Author Author Cami GLEZ Organization [facility] Address [address] [place] [address] Care Team Providers Care Leadite Worker Name Role Phone DON GLEZ Unavailable PROBLEMS Type Condition ICD9-CM Code RLV97-IJ Code Onset Dates Condition S tatus SNOMED Code Problem Hypertension I10 Active 5657490 3 Problem Generalized anxiety disorder F41.1 A ctive 35492252 Problem Depressive disorder, not elsewhere classified F32. 9 Active 48714847 Problem Basal cell carcinoma (BCC) of skin of right ear C4 4.212 Active 496323450 Problem Back pain M54.9 Active 220809954 Problem Skin ulcer of left foot with fat layer exposed L97 .522 Active 36935575 Problem Arthritis M19.90 Active 5713813 Problem COPD (chronic obstructive pulmonary disease) J44.9 Active 58155166 Problem Vitamin D deficiency E55.9 Active 39839325 Problem Lumbar radiculopathy M54.16 Active 423430920 Problem Venous insufficiency I87.2 Active 77476028 ALLERGIES No Information ENCOUNTERS Encounter Location Date Diagnosis [place] [address] [address] [facility] [id number] [address] [place] [address] Feb, [place] [address] [facility] [id number] [address] [place] [address] Dec, [place] [address] [id number] [address] [place] [address] Nov, [place] [address] [facility] [id number] [address] [place] [address] 18 Nov, 2019 [place] [address] [facility] [id number] [address] [place] [address] 17 Nov, 2019 Weight loss R63.4 ; Skin ulc er of left foot with fat layer exposed L97.522 ; Basal cell carcinoma (BCC) of skin of right ear C44.212 ; Hypertension I10 and Lumbar radiculopathy M54.16 [facility] [address] [id number] [address] [place] [address] 11 Nov, 2019 Back pain M54.9 and Radiculo peg, lumbar region M54.16 [facility] [address] [id number] [address] [place] [address] 20 Oct, 2019 Radiculopathy, lumbar region M54.16 [facility] [address] [id number] [address] [place] [address] 19 Oct, 2019 [facility] [address] [id number] [address] [place] [address] 11 Oct, 2019 Back pain M54.9 [facility] [address] [id number] [address] [place] [address] 10 Oct, 2019 [facility] [address] [id number] [address] [place] [address] 06 Oct, 2019 Skin sore L98.9 [facility] [address] [id number] [address] [place] [address] 24 Sep, 2019 Radiculopathy, lumbar region M54.16 [facility] [address] [id number] [address] [place] [address] 15 Sep, 2019 Back pain M54.9 [facility] [address] [id number] [address] [place] [address] 14 Sep, 2019 Generalized anxiety disorder F41.1 [facility] [address] [id number] [address] [place] [address] 30 Aug, 2019 Radiculopathy, lumbar region M54.16 [facility] [address] [id number] [address] [place] [address] 18 Aug, 2019 Back pain M54.9 [facility] [address] [id number] [address] [place] [address] Aug, Lumbar radiculopathy M54.16 ; Generalized anxiety disorder F41.1 and Drug-induced constipation K59.03 [facility] [address] [id number] [address] [place] [address] Jul, Radiculopathy, lumbar region M54.16 [facility] [address] [id number] [address] [place] [address] Jul, [facility] [address] [id number] [address] [place] [address] Jul, [facility] [address] [id number] [address] [place] [address] Jul, Back pain M54.9 [facility] [address] [id number] [address] [place] [address] Jul, Radiculopathy, lumbar region M54.16 [facility] [address] [id number] [address] [place] [address] Jul, Radiculopathy, lumbar region M54.16 [facility] [address] [id number] [address] [place] [address] Jun, Back pain M54.9 [facility] [address] [id number] [address] [place] [address] Jun, [facility] [address] [id number] [address] [place] [address] Jun, Radiculopathy, lumbar region M54.16 [facility] [address] [id number] [address] [place] [address] Jun, [facility] [address] [id number] [address] [place] [address] May, Back pain M54.9 [facility] [address] [id number] [address] [place] [address] May, Cellulitis of other specifie d site L03.818 ; Dermatitis L30.9 and Lumbar radiculopathy M54.16 [facility] [address] [id number] [address] [place] [address] May, [facility] [address] [id number] [address] [place] [address] 27 May, 2019 Back pain M54.9 [facility] [address] [id number] [address] [place] [address] 05 May, 2019 [facility] [address] [id number] [address] [place] [address] 04 May, 2019 Back pain M54.9 [facility] [address] [facility] [id number] [address] [place] [address] 14 Apr, 2019 [facility] [address] [facility] [id number] [address] [place] [address] 08 Apr, 2019 Back pain M54.9 [facility] [address] [id number] [address] [place] [address] Apr, Hyponatremia E87.1 [facility] [address] [facility] [id number] [address] [place] [address] Apr, Hyponatremia E87.1 [facility] [address] [facility] [id number] [address] [place] [address] Mar, Arthritis M19.90 ; Impacted cerumen of right ear H61.21 and Hypertension I10 [facility] [id number] [place] [id number] Mar, [facility] [address] [id number] [address] [place] [address] Mar, Back pain M54.9 [facility] [address] [id number] [address] [place] [address] Feb, Back pain M54.9 [facility] [address] [facility] [id number] [address] [place] [address] Feb, [facility] [address] [id number] [address] [place] [address] Feb, Dermatitis L30.9 [facility] [address] [id number] [address] [place] [address] January, Dermatitis L30.9 [facility] [address] [id number] [address] [place] [address] January, [facility] [address] [facility] [id number] [address] [place] [address] January, Back pain M54.9 [facility] [address] [id number] [address] [place] [address] Dec, [facility] [address] [id number] [address] [place] [address] Dec, Back pain M54.9 [facility] [address] [id number] [address] [place] [address] Dec, Lumbar radiculopathy M54.16 ; Arthritis M19.90 and Dyshydrosis L30.1 [facility] [address] [id number] [address] [place] [address] Nov, Back pain M54.9 [facility] [address] [id number] [address] [place] [address] Nov, [facility] [address] [id number] [address] [place] [address] Oct, [facility] [address] [id number] [address] [place] [address] Oct, Back pain M54.9 [facility] [address] [id number] [address] [place] [address] Oct, [facility] [address] [id number] [address] [place] [address] Oct, [facility] [address] [id number] [address] [place] [address] Sep, Back pain M54.9 [facility] [address] [id number] [address] [place] [address] Sep, [facility] [address] [id number] [address] [place] [address] Aug, Back pain M54.9 [facility] [address] [id number] [address] [place] [address] 14 Aug, 2018 Encounter for immunization Z 23 ; Arthritis M19.90 and Generalized anxiety disorder F41.1 [facility] [address] [id number] [address] [place] [address] Aug, [facility] [address] [id number] [address] [place] [address] Aug, [facility] [address] [id number] [address] [place] [address] Jul, Back pain M54.9 [facility] [address] [id number] [address] [place] [address] Jul, [facility] [address] [id number] [address] [place] [address] Jul, [facility] [address] [id number] [address] [place] [address] Jun, Back pain M54.9 [facility] [address] [id number] [address] [place] [address] Jun, [facility] [address] [id number] [address] [place] [address] 04 Jun, 2018 Back pain M54.9 [facility] [address] [id number] [address] [place] [address] 11 May, 2018 Lumbar radiculopathy M54.16 ; Hypertension I10 and Generalized anxiety disorder F41.1 [facility] [address] [id number] [address] [place] [address] 06 May, 2018 Back pain M54.9 [facility] [address] [id number] [address] [place] [address] Apr, [facility] [address] [id number] [address] [place] [address] Apr, [facility] [address] [id number] [address] [place] [address] Apr, Back pain M54.9 [facility] [address] [id number] [address] [place] [address] Mar, Back pain M54.9 [facility] [address] [id number] [address] [place] [address] Feb, [facility] [address] [id number] [address] [place] [address] Feb, [facility] [address] [id number] [address] [place] [address] Feb, [facility] [address] [id number] [address] [place] [address] Feb, Back pain M54.9 [facility] [address] [id number] [address] [place] [address] Feb, Back pain M54.9 ; Hypertensi on I10 ; Generalized anxiety disorder F41.1 and Venous insufficiency I87.2 [facility] [address] [id number] [address] [place] [address] January, [facility] [address] [id number] [address] [place] [address] January, Back pain M54.9 [facility] [address] [id number] [address] [place] [address] Dec, [facility] [address] [id number] [address] [place] [address] Dec, Back pain M54.9 [facility] [address] [id number] [address] [place] [address] Nov, Back pain M54.9 [facility] [address] [id number] [address] [place] [address] Nov, [facility] [address] [id number] [address] [place] [address] Nov, Lumbar radiculopathy M54.16 ; Hypertension I10 ; Arthritis M19.90 and Back pain M54.9 [facility] [address] [id number] [address] [place] [address] Oct, Back pain M54.9 [facility] [address] [id number] [address] [place] [address] Oct, [facility] [address] [id number] [address] [place] [address] Sep, Back pain M54.9 [facility] [address] [id number] [address] [place] [address] Sep, [facility] [address] [id number] [address] [place] [address] Aug, Back pain M54.9 [facility] [address] [id number] [address] [place] [address] Jul, Back pain M54.9 [facility] [address] [id number] [address] [place] [address] Jul, Encounter for immunization Z 23 ; Back pain M54.9 ; Hypertension I10 and Lumbar radiculopathy M54.16 [facility] [address] [id number] [address] [place] [address] Jul, Back pain M54.9 [facility] [address] [id number] [address] [place] [address] Jun, Vitamin D deficiency E55.9 [facility] [address] [id number] [address] [place] [address] Jun, Back pain M54.9 [facility] [address] [id number] [address] [place] [address] 20 May, 2017 [facility] [address] [id number] [address] [place] [address] 08 May, 2017 [facility] [address] [id number] [address] [place] [address] 08 May, 2017 [facility] [address] [id number] [address] [place] [address] May, Back pain M54.9 [facility] [address] [id number] [address] [place] [address] 15 Apr, 2017 Back pain M54.9 ; Hypertensi on I10 ; Arthritis M19.90 and Generalized anxiety disorder F41.1 [facility] [address] [id number] [address] [place] [address] Apr, Back pain M54.9 [facility] [address] [id number] [address] [place] [address] 12 Mar, 2017 Back pain M54.9 [facility] [address] [id number] [address] [place] [address] 10 Mar, 2017 Vitamin D deficiency E55.9 [facility] [address] [id number] [address] [place] [address] 15 Feb, 2017 Vitamin D deficiency E55.9 [facility] [address] [id number] [address] [place] [address] 14 Feb, 2017 Vitamin D deficiency E55.9 [facility] [address] [id number] [address] [place] [address] 13 Feb, 2017 Back pain M54.9 [facility] [address] [id number] [address] [place] [address] January, Back pain M54.9 [facility] [address] [id number] [address] [place] [address] January, Arthritis M19.90 [facility] [address] [id number] [address] [place] [address] January, Vitamin D deficiency E55.9 a nd Arthritis M19.90 [facility] [address] [facility] [id number] [address] [place] [address] Dec, Medicare annual wellness vis it, initial Z00.00 and Encounter for immunization Z23 [facility] [address] [facility] [id number] [address] [place] [address] Dec, Back pain M54.9 [facility] [address] [facility] [id number] [address] [place] [address] Nov, Back pain M54.9 [facility] [address] [facility] [id number] [address] [place] [address] 24 Oct, 2016 Back pain M54.9 [facility] [address] [facility] [id number] [address] [place] [address] 14 Oct, 2016 COPD (chronic obstructive pu lmonary disease) J44.9 [facility] [address] [facility] [id number] [address] [place] [address] 14 Oct, 2016 [facility] [address] [facility] [id number] [address] [place] [address] 02 Oct, 2016 Hypertension I10 ; Back pain M54.9 and Encounter for immunization Z23 [facility] [address] [facility] [id number] [address] [place] [address] Sep, [facility] [address] [facility] [id number] [address] [place] [address] Sep, Back pain M54.9 [facility] [address] [id number] [address] [place] [address] Sep, Back pain M54.9 [facility] [address] [facility] [id number] [address] [place] [address] Aug, [facility] [address] [facility] [id number] [address] [place] [address] Aug, Back pain M54.9 [facility] [address] [id number] [address] [place] [address] Aug, [facility] [address] [id number] [address] [place] [address] Aug, [facility] [address] [id number] [address] [place] [address] Aug, Back pain M54.9 [facility] [address] [id number] [address] [place] [address] Jul, [facility] [address] [id number] [address] [place] [address] Jul, Back pain M54.9 [facility] [address] [id number] [address] [place] [address] Jun, Back pain M54.9 ; Hypertensi on I10 ; Generalized anxiety disorder F41.1 and Encounter for immunization Z23 [facility] [address] [id number] [address] [place] [address] Jun, [facility] [address] [id number] [address] [place] [address] May, [facility] [address] [id number] [address] [place] [address] Apr, [facility] [address] [id number] [address] [place] [address] Apr, [facility] [address] [id number] [address] [place] [address] Mar, [facility] [address] [id number] [address] [place] [address] Mar, [facility] [address] [id number] [address] [place] [address] Mar, [facility] [address] [id number] [address] [place] [address] Feb, Back pain M54.9 and Hyperten madelyn I10 [facility] [address] [id number] [address] [place] [address] 17 Feb, 2016 Back pain M54.9 [facility] [address] [id number] [address] [place] [address] Dec, COPD (chronic obstructive pu lmonary disease) J44.9 [facility] [address] [id number] [address] [place] [address] Dec, [facility] [address] [id number] [address] [place] [address] Dec, Back pain M54.9 [facility] [address] [id number] [address] [place] [address] 24 Nov, 2015 Back pain M54.9 [facility] [address] [id number] [address] [place] [address] Nov, COPD (chronic obstructive pu lmonary disease) J44.9 [facility] [address] [id number] [address] [place] [address] 04 Nov, 2015 Hypertension I10 and Back pa in M54.9 [facility] [address] [id number] [address] [place] [address] Oct, Hypertension I10 and Back pa in M54.9 [facility] [address] [id number] [address] [place] [address] Oct, Back pain M54.9 [facility] [address] [id number] [address] [place] [address] Sep, Back pain M54.9 [facility] [address] [id number] [address] [place] [address] Sep, [facility] [address] [id number] [address] [place] [address] Sep, [facility] [address] [id number] [address] [place] [address] Sep, [facility] [address] [id number] [address] [place] [address] Sep, [facility] [address] [id number] [address] [place] [address] Aug, [facility] [address] [id number] [address] [place] [address] Aug, [facility] [address] [id number] [address] [place] [address] Aug, [facility] [address] [id number] [address] [place] [address] Aug, [facility] [address] [id number] [address] [place] [address] Aug, [facility] [address] [facility] [id number] [address] [place] [address] Jul, [facility] [address] [id number] [address] [place] [phone] Jul, Back pain M54.9 ; Arthritis M19.90 ; Hypertension I10 and Encounter for immunization Z23 [facility] [address] [id number] [address] [place] [id number] Jul, Generalized anxiety disorder F41.1 and Depressive disorder, not elsewhere classified F32.9 [facility] [address] [id number] [address] [place] [id number] Jul, [facility] [address] [id number] [address] [place] [id number] Jul, [facility] [address] [id number] [address] [place] [phone] Jul, [facility] [address] [facility] [id number] [address] [place] [phone] Jun, [facility] [address] [facility] [id number] [address] [place] [phone] Jun, [facility] [address] [facility] [id number] [address] [place] [phone] May, [facility] [address] [id number] [address] [place] [phone] May, [facility] [address] [id number] [address] [place] [id number] May, [facility] [address] [id number] [address] [place] [id number] May, [facility] [address] [id number] [address] [place] [id number] May, Benign essential hypertensio n 401.1 ; Anxiety state, unspecified 300.00 ; Back pain 724.5 and Arthritis 716.90 [facility] [address] [id number] [address] [place] [id number] May, [facility] [address] [id number] [address] [place] [id number] Apr, [facility] [address] [id number] [address] [place] [id number] Apr, [facility] [address] [id number] [address] [place] [id number] Apr, [facility] [address] [id number] [address] [place] [id number] Mar, [facility] [address] [id number] [address] [place] [id number] Mar, [facility] [address] [id number] [address] [place] [id number] Mar, [facility] [address] [id number] [address] [place] [id number] Feb, High risk medication use V58 .69 [facility] [address] [id number] [address] [place] [id number] 15 Feb, 2015 Benign essential hypertensio n 401.1 ; Anxiety state, unspecified 300.00 and Chronic pain 338.29 [facility] [address] [id number] [address] [place] [address], [place] [id number] Feb, [facility] [address] [id number] [address] [place] [address], [place] [phone] January, [facility] [address] [id number] [address] [place] [address], [place] [id number] January, [facility] [address] [id number] [address] [place] [address], [place] [phone] January, [facility] [address] [id number] [address] [place] [address], [place] [address] January, [facility] [address] [id number] [address] [place] [address], [place] [address] Dec, [facility] [address] [id number] [address] [place] [address], [place] [address] Dec, [facility] [address] [id number] [address] [place] [address] Nov, [facility] [address] [id number] [address] [place] [address], [place] [address] Nov, [facility] [address] [id number] [address] [place] [address] Nov, [facility] [address] [id number] [address] [place] [address] Nov, [facility] [address] [id number] [address] [place] [address] Oct, [facility] [address] [id number] [address] [place] [address], [place] [address] Oct, [facility] [address] [id number] [address] [place] [address] Oct, [facility] [address] [id number] [address] [place] [address] Oct, [facility] [address] [id number] [address] [place] [address] Oct, [facility] [address] [id number] [address] [place] [address], [place] [address] Sep, [facility] [address] [id number] [address] [place] [address], [place] [address] Sep, [facility] [address] [id number] [address] [place] [address], [place] [address] Sep, [facility] [address] [id number] [address] [place] [address], [place] [address] Sep, [facility] [address] [id number] [address] [place] [address], [place] [address] Aug, [facility] [address] [id number] [address] [place] [address], [place] [address] Aug, [facility] [address] [id number] [address] [place] [address], [place] [address] Aug, [facility] [address] [id number] [address] [place] [address], [place] [address] Aug, [facility] [address] [id number] [address] [place] [address], [place] [address] Aug, [facility] [address] [id number] [address] [place] [address], [place] [address] Aug, [facility] [address] [id number] [address] [place] [address], [place] [address] Jul, [facility] [address] [id number] [address] [place] [address] Jul, [facility] [address] [id number] [address] [place] [address], [place] [address] Jun, [facility] [address] [id number] [address] [place] [address], [place] [address] Jun, [facility] [address] [id number] [address] [place] [address], [place] [address] Jun, [facility] [address] [id number] [facility] [place] [address] Jun, [facility] [address] [id number] [facility] [place] [address] May, [facility] [address] [id number] [address] [place] [address], [place] [address] May, [facility] [address] [id number] [address] [place] [address], [place] [address] May, [facility] [address] [id number] [address] [place] [address], [place] [address] May, [facility] [address] [id number] [address] [place] [address], [place] [address] Apr, [facility] [address] [id number] [address] [place] [address], [place] [address] Apr, [facility] [address] [id number] [address] [place] [address], [place] [address] Apr, [facility] [address] [id number] [address] [place] [address], [place] [address] Apr, [facility] [address] [id number] [address] [place] [address], [place] [address] Apr, [facility] [address] [id number] [address] [place] [address], [place] [address] Apr, [facility] [address] [id number] [address] [place] [address], [place] [address] Mar, [facility] [address] [id number] [address] [place] [address], [place] [address] Mar, [facility] [address] [id number] [address] [place] [address], [place] [address] Mar, [facility] [address] [id number] [address] [place] [address], [place] [address] Mar, [facility] [address] [id number] [address] [place] [address], [place] [address] Feb, [facility] [address] [id number] [facility] [place] [address] Feb, [facility] [address] [id number] [address] [place] [address], [place] [address] Feb, [facility] [address] [id number] [address] [place] [address], [place] [address] January, [facility] [address] [id number] [address] [place] [address], [place] [address] January, [facility] [address] [id number] [address] [place] [address], [place] [address] January, [facility] [address] [id number] [address] [place] [address], [place] [address] January, [facility] [address] [id number] [address] [place] [address], [place] [address] January, [facility] [address] [id number] [address] [place] [address], [place] [address] January, [facility] [address] [id number] [address] [place] [address], [place] [address] January, [facility] [address] [id number] [address] [place] [address], [place] [address] January, [facility] [address] [id number] [address] [place] [address], [place] [address] Dec, [facility] [address] [id number] [address] [place] [address], [place] [address] Dec, [facility] [address] [id number] [address] [place] [address], [place] [address] Dec, [facility] [address] [id number] [address] [place] [address], [place] [address] Dec, [facility] [address] [id number] [address] [place] [address], [place] [address] Dec, [facility] [address] [id number] [facility] [place] [address] 02 Dec, 2013 [facility] [address] [id number] [address] [place] [address], [place] [address] Dec, [facility] [address] [id number] [address] [place] [address], [place] [address] Nov, [facility] [address] [id number] [address] [place] [address], [place] [address] Nov, [facility] [address] [id number] [address] [place] [address], [place] [address] Nov, [facility] [address] [id number] [address] [place] [address], [place] [address] Nov, [facility] [address] [id number] [address] [place] [address], [place] [address] Nov, [facility] [address] [id number] [address] [place] [address], [place] [address] Nov, [facility] [address] [id number] [address] [place] [address], [place] [address] Nov, [facility] [address] [id number] [address] [place] [address], [place] [address] Nov, [facility] [address] [id number] [address] [place] [address], [place] [address] Nov, [facility] [address] [id number] [address] [place] [address], [place] [address] Nov, [facility] [address] [id number] [address] [place] [address], [place] [address] Nov, [facility] [address] [id number] [address] [place] [address], [place] [address] Nov, [facility] [address] [id number] [address] [place] [address], [place] [address] 07 Oct, 2013 [facility] [address] [id number] [address] [place] [address], [place] [address] 07 Oct, 2013 [facility] [address] [id number] [address] [place] [address], [place] [address] Sep, [facility] [address] [id number] [address] [place] [address], [place] [address] Sep, [facility] [address] [id number] [address] [place] [address], [place] [address] Sep, [facility] [address] [id number] [address] [place] [address], [place] [address] Sep, [facility] [address] [id number] [address] [place] [address], [place] [address] Aug, [facility] [address] [id number] [address] [place] [address], [place] [address] Aug, [facility] [address] [id number] [address] [place] [address], [place] [address] 15 Jul, 2013 [facility] [address] [id number] [address] [place] [address] 15 Jul, 2013 [facility] [address] [id number] [address] [place] [address], [place] [address] 15 Jul, 2013 [facility] [address] [id number] [address] [place] [address] 15 Jul, 2013 [facility] [address] [id number] [address] [place] [address] 28 Jun, 2013 [facility] [address] [id number] [address] [place] [address] 28 Jun, 2013 [facility] [address] [id number] [address] [place] [address], [place] [address] 18 Jun, 2013 [facility] [address] [id number] [address] [place] [address], [place] [address] 18 Jun, 2013 [facility] [address] [id number] [address] [place] [address] 14 Jun, 2013 [facility] [address] [id number] [address] [place] [address] 14 Jun, 2013 [facility] [address] [id number] [address] [place] [address], [place] [address] 20 May, 2013 [facility] [address] [id number] [address] [place] [address], [place] [address] 18 May, 2013 [facility] [address] [id number] [address] [place] [address], [place] [address] 16 May, 2013 [facility] [address] [id number] [address] [place] [address], [place] [address] Apr, [facility] [address] [id number] [address] [place] [address], [place] [address] Apr, [facility] [address] [id number] [address] [place] [address], [place] [address] Apr, [facility] [address] [id number] [address] [place] [address], [place] [address] Mar, [facility] [address] [id number] [address] [place] [address], [place] [address] Mar, [facility] [address] [id number] [address] [place] [address], [place] [address] Feb, [facility] [address] [id number] [address] [place] [address], [place] [address] Feb, [facility] [address] [id number] [address] [place] [address], [place] [address] Feb, [facility] [address] [id number] [address] [place] [address], [place] [address] January, [facility] [address] [id number] [address] [place] [address], [place] [address] January, [facility] [address] [id number] [address] [place] [address], [place] [address] January, [facility] [address] [id number] [address] [place] [address], [place] [address] 15 Dec, 2012 [facility] [address] [id number] [address] [place] [address], [place] [address] 11 Dec, 2012 [facility] [address] [id number] [address] [place] [address], [place] [address] 08 Dec, 2012 [facility] [address] [id number] [address] [place] [address], [place] [address] 19 Nov, 2012 [facility] [address] [id number] [address] [place] [address], [place] [address] 14 Nov, 2012 [facility] [address] [id number] [address] [place] [address], [place] [address] 13 Nov, 2012 [facility] [address] [id number] [address] [place] [address], [place] [address] 18 Oct, 2012 [facility] [address] [id number] [address] [place] [address], [place] [address] 14 Oct, 2012 [facility] [address] [id number] [address] [place] [address], [place] [address] Sep, [facility] [address] [id number] [address] [place] [address], [place] [address] Sep, [facility] [address] [id number] [address] [place] [address], [place] [address] Sep, [facility] [address] [id number] [address] [place] [address], [place] [address] Aug, [facility] [address] [id number] [address] [place] [address], [place] [address] Aug, [facility] [address] [id number] [address] [place] [address], [place] [address] 17 Aug, 2012 [facility] [address] [id number] [address] [place] [address], [place] [address] 07 Aug, 2012 [facility] [address] [id number] [address] [place] [address], [place] [address] 07 Aug, 2012 [facility] [address] [id number] [address] [place] [address], [place] [address] Jul, [facility] [address] [id number] [address] [place] [address], [place] [address] Jul, [facility] [address] [id number] [address] [place] [address], [place] [address] Jul, [facility] [address] [id number] [address] [place] [address], [place] [address] Jul, [facility] [address] [id number] [address] [place] [address], [place] [address] Jul, [facility] [address] [id number] [address] [place] [address], [place] [address] Jul, [facility] [address] [id number] [address] [place] [address], [place] [address] Jun, [facility] [address] [id number] [address] [place] [address], [place] [address] Jun, [facility] [address] [id number] [address] [place] [address], [place] [address] Jun, [facility] [address] [id number] [address] [place] [address], [place] [address] Jun, [facility] [address] [id number] [address] [place] [address], [place] [address] May, [facility] [address] [id number] [address] [place] [address] 06 May, 2012 [facility] [address] [id number] [address] [place] [address] 16 Apr, 2012 [facility] [address] [id number] [address] [place] [address], [place] [address] 15 Apr, 2012 [facility] [address] [id number] [address] [place] [address], [place] [address] 14 Apr, 2012 [facility] [address] [id number] [address] [place] [address], [place] [address] Mar, [facility] [address] [id number] [address] [place] [address], [place] [address] 13 Mar, 2012 [facility] [address] [id number] [address] [place] [address], [place] [address] Feb, [facility] [address] [id number] [address] [place] [address], [place] [address] 24 Jan, 2012 [facility] [address] [id number] [address] [place] [address], [place] [address] January, [facility] [address] [id number] [address] [place] [address], [place] [address] Dec, [facility] [address] [id number] [address] [place] [address], [place] [address] Dec, [facility] [address] [id number] [address] [place] [address], [place] [address] Dec, [facility] [address] [id number] [address] [place] [address], [place] [address] Dec, [facility] [address] [id number] [address] [place] [address], [place] [address] 30 Nov, 2011 [facility] [address] [id number] [address] [place] [address], [place] [address] 23 Nov, 2011 [facility] [address] [id number] [address] [place] [address], [place] [address] 15 Nov, 2011 [facility] [address] [id number] [address] [place] [address], [place] [address] Nov, [facility] [address] [id number] [address] [place] [address], [place] [address] 14 Oct, 2011 [facility] [address] [id number] [address] [place] [address], [place] [address] 09 Oct, 2011 [facility] [address] [id number] [address] [place] [address], [place] [address] Sep, [facility] [address] [id number] [address] [place] [address], [place] [address] 30 Aug, 2011 [facility] [address] [id number] [address] [place] [address], [place] [address] 23 Aug, 2011 [facility] [address] [id number] [address] [place] [address], [place] [address] Aug, [facility] [address] [id number] [address] [place] [address], [place] [id number] 29 Jul, 2011 [facility] [address] [id number] [address] [place] [address], [place] [id number] Jul, [facility] [address] [id number] [address] [place] [address], [place] [id number] Jul, [facility] [address] [id number] [address] [place] [address], [place] [id number] 20 Jun, 2011 [facility] [address] [id number] [address] [place] [address], [place] [id number] 14 Jun, 2011 [facility] [address] [id number] [address] [place] [address], [place] [id number] 13 Jun, 2011 [facility] [address] [id number] [address] [place] [address], [place] [id number] Jun, [facility] [address] [id number] [address] [place] [id number] 19 May, 2011 [facility] [address] [id number] [address] [place] [address], [place] [id number] January, [facility] [address] [id number] [address] [place] [id number] Aug, [facility] [address] [id number] [address] [place] [address], [place] [id number] Aug, [facility] [address] [id number] [address] [place] [address], [place] [id number] 10 Aug, 2010 [facility] [address] [id number] [address] [place] [id number] 10 Aug, 2010 [facility] [address] [id number] [address] [place] [id number] 11 Jul, 2010 [facility] [address] [facility] [id number] [address] [place] [id number] Jul, [facility] [address] [facility] [id number] [address] [place] [id number] 15 Jun, 2010 [facility] [address] [facility] [id number] [address] [place] [id number] 15 Jun, 2010 [facility] [address] [facility] [id number] [address] [place] [id number] 16 May, 2010 [facility] [address] [facility] [id number] [address] [place] [id number] January, IMMUNIZATIONS No Known Immunizations SOCIAL HISTORY [...]
--- OUTSIDE RECORDS SUMMARY | 2020-02-13 16:29 | XMS REPORT ---
Author Author Cami GLEZ Organization [facility] [place] Address [address] [place] [address] Care Team Providers Care Shaker Washer Name Role Phone DON GLEZ Unavailable PROBLEMS Type Condition ICD9-CM Code [id number] Code Onset Dates Condition S tatus SNOMED Code Problem Arthritis M19.90 Active 5026212 Problem Back pain M54.9 Active 969414976 Problem Hypertension I10 Active 0886285 3 Problem Lumbar radiculopathy M54.16 Active 387294333 Problem Venous insufficiency I87.2 Active 60608506 Problem Generalized anxiety disorder F41.1 A ctive 68215091 Problem Depressive disorder, not elsewhere classified F32. 9 Active 33065372 Problem COPD (chronic obstructive pulmonary disease) J44.9 Active 38869426 Problem Vitamin D deficiency E55.9 Active 93943165 ALLERGIES No Information ENCOUNTERS Encounter Location Date Diagnosis [place] [address] [address] Nov, [place] [address] [address] Nov, Back pain M54.9 and Radiculopathy, lumba r region M54.16 [place] [address] [address] Oct, Radiculopathy, lumbar region M54.16 [place] [address] [address] Oct, [place] [address] [address] 11 Oct, 2019 Back pain M54.9 [place] [address] [address] 10 Oct, 2019 [place] [address] [address] 06 Oct, 2019 Skin sore L98.9 [facility] [place] [address] [address] 24 Sep, 2019 Radiculopathy, lumbar region M54.16 [facility] [place] [address] [address] 15 Sep, 2019 Back pain M54.9 [facility] [place] [address] [address] 14 Sep, 2019 Generalized anxiety disorder F41.1 [place] [address] [address] Aug, Radiculopathy, lumbar region M54.16 [place] [address] [address] Aug, Back pain M54.9 [place] [address] [address] Aug, Lumbar radiculopathy M54.16 ; Generalize d anxiety disorder F41.1 and Drug-induced constipation K59.03 [place] [address] [address] Jul, Radiculopathy, lumbar region M54.16 [facility] [place] [address] [address] Jul, [facility] [place] [address] [address] Jul, [facility] [place] [address] [address] Jul, Back pain M54.9 [facility] [place] [address] [address] Jul, Radiculopathy, lumbar region M54.16 [facility] [place] [address] [address] Jul, Radiculopathy, lumbar region M54.16 [facility] [place] [address] [address] Jun, Back pain M54.9 [facility] [place] [address] [address] Jun, [facility] [place] [address] [address] Jun, Radiculopathy, lumbar region M54.16 [facility] [place] [address] [address] Jun, [facility] [place] [address] [address] 30 May, 2019 Back pain M54.9 [facility] [place] [address] [address] May, Cellulitis of other specified site L03.8 18 ; Dermatitis L30.9 and Lumbar radiculopathy M54.16 [facility] [place] [address] [address] May, [facility] [place] [address] [address] May, Back pain M54.9 [facility] [place] [address] [address] May, [facility] [place] [address] [address] May, Back pain M54.9 [facility] [place] [address] [address] Apr, [facility] [place] [address] [address] Apr, Back pain M54.9 [facility] [place] [address] [address] Apr, Hyponatremia E87.1 [facility] [place] [address] [address] Apr, Hyponatremia E87.1 [facility] [place] [address] [address] Mar, Arthritis M19.90 ; Impacted cerumen of r ight ear H61.21 and Hypertension I10 [facility] [place] [id number] [facility] [place] [id number] Mar, [facility] [place] [address] [address] Mar, Back pain M54.9 [facility] [place] [address] [address] Feb, Back pain M54.9 [facility] [place] [address] [address] Feb, [facility] [place] [address] [address] Feb, Dermatitis L30.9 [facility] [place] [address] [address] January, Dermatitis L30.9 [facility] [place] [address] [address] January, [facility] [place] [address] [address] January, Back pain M54.9 [facility] [place] [address] [address] Dec, [facility] [place] [address] [address] Dec, Back pain M54.9 [facility] [place] [address] [address] Dec, Lumbar radiculopathy M54.16 ; Arthritis M19.90 and Dyshydrosis L30.1 [facility] [place] [address] [address] Nov, Back pain M54.9 [facility] [place] [address] [address] Nov, [facility] [place] [address] [address] Oct, [facility] [place] [address] [address] Oct, Back pain M54.9 [facility] [place] [address] [address] Oct, [facility] [place] [address] [address] Oct, [facility] [place] [address] [address] Sep, Back pain M54.9 [facility] [place] [address] [address] Sep, [facility] [place] [address] [address] Aug, Back pain M54.9 [facility] [place] [address] [address] Aug, Encounter for immunization Z23 ; Arthrit is M19.90 and Generalized anxiety disorder F41.1 [facility] [place] [address] [address] Aug, [facility] [place] [address] [address] Aug, [facility] [place] [address] [address] Jul, Back pain M54.9 [facility] [place] [address] [address] Jul, [facility] [place] [address] [address] Jul, [facility] [place] [address] [address] Jun, Back pain M54.9 [facility] [place] [address] [address] Jun, [facility] [place] [address] [address] 04 Jun, 2018 Back pain M54.9 [facility] [place] [address] [address] 11 May, 2018 Lumbar radiculopathy M54.16 ; Hypertensi on I10 and Generalized anxiety disorder F41.1 [facility] [place] [address] [address] 06 May, 2018 Back pain M54.9 [facility] [place] [address] [address] Apr, [facility] [place] [address] [address] Apr, [facility] [place] [address] [address] Apr, Back pain M54.9 [facility] [place] [address] [address] Mar, Back pain M54.9 [facility] [place] [address] [address] Feb, [facility] [place] [address] [address] Feb, [facility] [place] [address] [address] 15 Feb, 2018 [facility] [place] [address] [address] 14 Feb, 2018 Back pain M54.9 [facility] [place] [address] [address] Feb, Back pain M54.9 ; Hypertension I10 ; Gen eralized anxiety disorder F41.1 and Venous insufficiency I87.2 [facility] [place] [address] [address] January, [facility] [place] [address] [address] January, Back pain M54.9 [facility] [place] [address] [address] Dec, [facility] [place] [address] [address] Dec, Back pain M54.9 [facility] [place] [address] [address] Nov, Back pain M54.9 [facility] [place] [address] [address] Nov, [facility] [place] [address] [address] Nov, Lumbar radiculopathy M54.16 ; Hypertensi on I10 ; Arthritis M19.90 and Back pain M54.9 [facility] [place] [address] [address] Oct, Back pain M54.9 [facility] [place] [address] [address] Oct, [facility] [place] [address] [address] Sep, Back pain M54.9 [facility] [place] [address] [address] Sep, [facility] [place] [address] [address] Aug, Back pain M54.9 [facility] [place] [address] [address] Jul, Back pain M54.9 [facility] [place] [address] [address] 09 Jul, 2017 Encounter for immunization Z23 ; Back pa in M54.9 ; Hypertension I10 and Lumbar radiculopathy M54.16 [facility] [place] [address] [address] Jul, Back pain M54.9 [facility] [place] [address] [address] Jun, Vitamin D deficiency E55.9 [facility] [place] [address] [address] Jun, Back pain M54.9 [facility] [place] [address] [address] May, [facility] [place] [address] [address] 08 May, 2017 [facility] [place] [address] [address] May, [facility] [place] [address] [address] May, Back pain M54.9 [facility] [place] [address] [address] Apr, Back pain M54.9 ; Hypertension I10 ; Art hritis M19.90 and Generalized anxiety disorder F41.1 [facility] [place] [address] [address] Apr, Back pain M54.9 [facility] [place] [address] [address] Mar, Back pain M54.9 [facility] [place] [address] [address] Mar, Vitamin D deficiency E55.9 [facility] [place] [address] [address] 15 Feb, 2017 Vitamin D deficiency E55.9 [facility] [place] [address] [address] 14 Feb, 2017 Vitamin D deficiency E55.9 [facility] [place] [address] [address] 13 Feb, 2017 Back pain M54.9 [facility] [place] [address] [address] January, Back pain M54.9 [facility] [place] [address] [address] January, Arthritis M19.90 [facility] [place] [address] [address] January, Vitamin D deficiency E55.9 and Arthritis M19.90 [facility] [place] [address] [address] Dec, Medicare annual wellness visit, initial Z00.00 and Encounter for immunization Z23 [place] [address] [address] Dec, Back pain M54.9 [facility] [place] [address] [address] Nov, Back pain M54.9 [facility] [place] [address] [address] Oct, Back pain M54.9 [facility] [place] [address] [address] Oct, COPD (chronic obstructive pulmonary dise ase) J44.9 [facility] [place] [address] [address] Oct, [facility] [place] [address] [address] Oct, Hypertension I10 ; Back pain M54.9 and E ncounter for immunization Z23 [facility] [place] [address] [address] Sep, [facility] [place] [address] [address] Sep, Back pain M54.9 [facility] [place] [address] [address] Sep, Back pain M54.9 [facility] [place] [address] [place] [id number] [place] [address] Aug, [facility] [place] [address] [address] Aug, Back pain M54.9 [facility] [place] [address] [place] [id number] [place] [address] Aug, [facility] [place] [address] [address] Aug, [facility] [place] [address] [address] Aug, Back pain M54.9 [facility] [place] [address] [address] Jul, [facility] [place] [address] [address] Jul, Back pain M54.9 [facility] [place] [address] [address] Jun, Back pain M54.9 ; Hypertension I10 ; Gen eralized anxiety disorder F41.1 and Encounter for immunization Z23 [facility] [place] [address] [address] Jun, [facility] [place] [address] [address] May, [facility] [place] [address] [address] Apr, [facility] [place] [address] [address] Apr, [facility] [place] [address] [address] Mar, [facility] [place] [address] [address] Mar, [facility] [place] [address] [address] Mar, [facility] [place] [address] [address] 20 Feb, 2016 Back pain M54.9 and Hypertension I10 [facility] [place] [address] [address] 17 Feb, 2016 Back pain M54.9 [facility] [place] [address] [address] Dec, COPD (chronic obstructive pulmonary dise ase) J44.9 [facility] [place] [address] [address] Dec, [facility] [place] [address] [address] Dec, Back pain M54.9 [facility] [place] [address] [address] 24 Nov, 2015 Back pain M54.9 [facility] [place] [address] [address] Nov, COPD (chronic obstructive pulmonary dise ase) J44.9 [facility] [place] [address] [address] Nov, Hypertension I10 and Back pain M54.9 [facility] [place] [address] [address] Oct, Hypertension I10 and Back pain M54.9 [facility] [place] [address] [address] Oct, Back pain M54.9 [facility] [place] [address] [address] Sep, Back pain M54.9 [facility] [place] [address] [address] Sep, [facility] [place] [address] [address] Sep, [facility] [place] [address] [address] Sep, [facility] [place] [address] [place] [id number] [place] [address] Sep, [facility] [place] [address] [address] Aug, [facility] [place] [address] [address] Aug, [facility] [place] [address] [address] Aug, [facility] [place] [address] [address] Aug, [facility] [place] [address] [address] Aug, [facility] [place] [address] [address] Jul, [facility] [place] [address] [address] Jul, Back pain M54.9 ; Arthritis M19.90 ; Hyp ertension I10 and Encounter for immunization Z23 [facility] [place] [address] [address] Jul, Generalized anxiety disorder F41.1 and D epressive disorder, not elsewhere classified F32.9 [facility] [place] [address] [address] Jul, [facility] [place] [address] [address] Jul, [facility] [place] [address] [address] Jul, [facility] [place] [address] [address] Jun, [facility] [place] [address] [address] Jun, [facility] [place] [address] [address] May, [facility] [place] [address] [place] [address] May, [facility] [place] [id number] [place] [address] May, [facility] [place] [id number] [place] [address] May, [facility] [place] [id number] [place] [address] May, Benign essential hypertension 401.1 ; An xiety state, unspecified 300.00 ; Back pain 724.5 and Arthritis 716.90 [facility] [place] [id number] [place] [address] May, [facility] [place] [address] [address] Apr, [facility] [place] [id number] [place] [address] Apr, [facility] [place] [address] [address] Apr, [facility] [place] [id number] [place] [address] Mar, [facility] [place] [address] [address] Mar, [facility] [place] [id number] [place] [address] Mar, [facility] [place] [id number] [place] [address] Feb, High risk medication use V58.69 [facility] [place] [id number] [place] [address] Feb, Benign essential hypertension 401.1 ; An xiety state, unspecified 300.00 and Chronic pain 338.29 [facility] [place] [id number] [place] [address] Feb, [facility] [place] [address] [address] January, [facility] [address] [id number] [place] [address] January, [facility] [address] [id number] [place] [address] January, [facility] [address] [id number] [place] [address] January, [facility] [address] [id number] [place] [address] Dec, [facility] [address] [id number] [place] [address] Dec, [facility] [address] [id number] [place] [address] Nov, [facility] [address] [id number] [place] [address] Nov, [facility] [address] [id number] [place] [address] Nov, [facility] [address] [id number] [place] [address] Nov, [facility] [address] [id number] [place] [address] Oct, [facility] [address] [id number] [place] [address] Oct, [facility] [address] [id number] [place] [address] Oct, [facility] [address] [id number] [place] [address] Oct, [facility] [address] [id number] [place] [address] Oct, [facility] [address] [id number] [place] [address] Sep, [facility] [address] [id number] [place] [address] Sep, [facility] [address] [id number] [place] [address] Sep, [facility] [address] [id number] [place] [address] Sep, [facility] [address] [id number] [place] [address] Aug, [facility] [address] [id number] [place] [address] Aug, [facility] [place] [facility] [address] [id number] [place] [address] Aug, [facility] [place] [facility] [address] [id number] [place] [address] Aug, [facility] [place] [facility] [address] [id number] [place] [address] Aug, [facility] [place] [facility] [address] [id number] [place] [address] Aug, [facility] [place] [facility] [address] [id number] [place] [address] Jul, [facility] [place] [facility] [address] [id number] [place] [address] Jul, [facility] [place] [facility] [address] [id number] [place] [address] Jun, [facility] [place] [facility] [address] [id number] [place] [address] Jun, [facility] [place] [facility] [address] [id number] [place] [address] Jun, [facility] [place] [facility] [address] [id number] [place] [address] Jun, [facility] [place] [facility] [address] [id number] [place] [address] May, [facility] [place] [facility] [address] [id number] [place] [address] May, 2013 [facility] [place] [facility] [address] [id number] [place] [address] May, 2013 [facility] [place] [facility] [address] [facility] [id number] [facility] [place] [address] May, [facility] [place] [facility] [address] [facility] [id number] [place] [address] Apr, [facility] [place] [facility] [address] [facility] [id number] [place] [address] Apr, [facility] [place] [facility] [address] [id number] [place] [address] Apr, [facility] [facility] [address] [facility] [id number] [place] [address] Apr, [facility] [place] [facility] [address] [facility] [id number] [place] [address] Apr, [facility] [place] [facility] [address] [id number] [place] [address] Apr, [facility] [facility] [address] [id number] [place] [address] Mar, [facility] [facility] [address] [id number] [place] [address] Mar, [facility] [facility] [address] [id number] [place] [address] Mar, [facility] [facility] [address] [id number] [place] [address] Mar, [facility] [place] [facility] [address] [id number] [place] [address] Feb, [facility] [place] [facility] [address] [id number] [place] [address] Feb, [facility] [facility] [address] [facility] [id number] [place] [address] Feb, [facility] [place] [facility] [address] [id number] [place] [address] January, [facility] [address] [id number] [place] [address] January, [facility] [address] [id number] [place] [address] January, [facility] [address] [facility] [id number] [place] [address] January, [facility] [facility] [address] [id number] [place] [address] January, [facility] [address] [id number] [place] [address] January, [facility] [facility] [address] [id number] [place] [address] January, [facility] [place] [facility] [address] [facility] [id number] [place] [address] January, [facility] [place] [facility] [address] [id number] [place] [address] Dec, [facility] [address] [id number] [place] [address] Dec, [facility] [facility] [address] [id number] [place] [address] Dec, [facility] [address] [id number] [place] [address] Dec, [facility] [address] [id number] [place] [address] Dec, [facility] [facility] [address] [id number] [place] [address] Dec, [facility] [place] [facility] [address] [id number] [place] [address] Dec, [facility] [place] [facility] [address] [id number] [place] [address] Nov, [facility] [place] [facility] [address] [id number] [place] [address] Nov, [facility] [address] [id number] [place] [address] Nov, [facility] [facility] [address] [id number] [place] [address] Nov, [facility] [address] [id number] [place] [address] 18 Nov, 2013 [facility] [place] [facility] [address] [facility] [id number] [place] [address] 18 Nov, 2013 [facility] [facility] [address] [facility] [id number] [place] [address] Nov, [facility] [place] [facility] [address] [id number] [place] [address] Nov, [facility] [place] [facility] [address] [id number] [place] [address] Nov, [facility] [place] [facility] [address] [id number] [place] [address] 07 Nov, 2013 [facility] [address] [id number] [place] [address] 07 Nov, 2013 [facility] [address] [id number] [place] [address] Nov, [facility] [address] [id number] [place] [address] 07 Oct, 2013 [facility] [address] [id number] [place] [address] 07 Oct, 2013 [facility] [address] [id number] [place] [address] Sep, [facility] [place] [facility] [address] [id number] [place] [address] Sep, [facility] [place] [facility] [address] [id number] [place] [address] Sep, [facility] [place] [facility] [address] [facility] [id number] [place] [address] 09 Sep, 2013 [facility] [facility] [address] [id number] [place] [address] Aug, [facility] [place] [facility] [address] [id number] [place] [address] Aug, [facility] [place] [facility] [address] [id number] [place] [address] 15 Jul, 2013 [facility] [place] [facility] [address] [id number] [place] [address] 15 Jul, 2013 [facility] [facility] [address] [id number] [place] [address] 15 Jul, 2013 [facility] [facility] [address] [id number] [place] [address] 15 Jul, 2013 [facility] [facility] [address] [id number] [place] [address] 28 Jun, 2013 [facility] [address] [id number] [place] [address] 28 Jun, 2013 [facility] [address] [id number] [place] [address] 18 Jun, 2013 [facility] [address] [id number] [place] [address] 18 Jun, 2013 [facility] [address] [id number] [place] [address] 14 Jun, 2013 [facility] [address] [id number] [place] [address] 14 Jun, 2013 [facility] [address] [id number] [place] [address] 20 May, 2013 [facility] [facility] [address] [id number] [place] [address] 18 May, 2013 [facility] [address] [id number] [place] [address] 16 May, 2013 [facility] [address] [id number] [place] [address] Apr, [facility] [place] [facility] [address] [id number] [place] [address] Apr, [facility] [address] [id number] [place] [address] Apr, [facility] [address] [id number] [place] [address] Mar, [facility] [place] [facility] [address] [id number] [place] [address] Mar, [facility] [address] [facility] [id number] [place] [address] Feb, [facility] [facility] [address] [id number] [facility] [place] [address] Feb, [facility] [address] [id number] [place] [address] Feb, [facility] [place] [facility] [address] [id number] [place] [address] January, [facility] [place] [facility] [address] [facility] [id number] [place] [address] January, [facility] [address] [id number] [place] [address] January, [facility] [address] [id number] [place] [address] 15 Dec, 2012 [facility] [address] [id number] [place] [address] Dec, [facility] [facility] [address] [id number] [place] [address] 08 Dec, 2012 [facility] [place] [facility] [address] [id number] [place] [address] Nov, [facility] [address] [id number] [place] [address] 14 Nov, 2012 [facility] [address] [id number] [place] [address] Nov, [facility] [address] [id number] [place] [address] 18 Oct, 2012 [facility] [address] [id number] [place] [address] 14 Oct, 2012 [facility] [place] [facility] [address] [id number] [place] [address] Sep, [facility] [facility] [address] [id number] [place] [address] Sep, [facility] [address] [id number] [place] [address] Sep, [facility] [address] [id number] [place] [address] Aug, [facility] [address] [id number] [place] [address] Aug, [facility] [address] [id number] [place] [address] Aug, [facility] [address] [id number] [place] [address] Aug, [facility] [address] [id number] [place] [address] Aug, [facility] [address] [id number] [place] [address] Jul, [facility] [id number] [place] [address] Jul, [facility] [id number] [place] [address] Jul, [facility] [address] [id number] [place] [address] Jul, [facility] [id number] [place] [address] Jul, [facility] [address] [id number] [place] [address] Jul, [facility] [address] [id number] [place] [address] Jun, [facility] [address] [id number] [place] [address] Jun, [facility] [id number] [place] [address] Jun, [facility] [address] [id number] [place] [address] Jun, [facility] [address] [id number] [place] [address] May, [facility] [address] [id number] [place] [address] 06 May, 2012 [facility] [address] [id number] [place] [address] 16 Apr, 2012 [facility] [address] [id number] [place] [address] 15 Apr, 2012 [facility] [address] [id number] [place] [address] 14 Apr, 2012 [facility] [address] [id number] [place] [address] 17 Mar, 2012 [facility] [address] [id number] [place] [address] Mar, [facility] [address] [id number] [place] [address] Feb, [facility] [address] [id number] [place] [address] 24 Jan, 2012 [facility] [address] [id number] [place] [address] January, [facility] [address] [id number] [place] [address] 27 Dec, 2011 [facility] [address] [id number] [place] [address] Dec, [facility] [address] [id number] [place] [address] 05 Dec, 2011 [facility] [address] [id number] [place] [address] 04 Dec, 2011 [facility] [address] [id number] [place] [address] 30 Nov, 2011 [facility] [address] [id number] [place] [address] 23 Nov, 2011 [facility] [facility] [address] [id number] [place] [address] 15 Nov, 2011 [facility] [place] [facility] [address] [id number] [place] [address] Nov, [facility] [address] [id number] [place] [address] Oct, [facility] [place] [facility] [address] [id number] [place] [address] Oct, [facility] [place] [facility] [address] [id number] [place] [address] Sep, [facility] [place] [facility] [address] [id number] [place] [address] Aug, [facility] [place] [facility] [address] [id number] [place] [address] Aug, [facility] [place] [facility] [address] [id number] [place] [address] Aug, [facility] [place] [facility] [address] [id number] [place] [address] Jul, [facility] [place] [facility] [address] [id number] [place] [address] Jul, [facility] [place] [facility] [address] [id number] [place] [address] Jul, [facility] [place] [facility] [address] [id number] [place] [address] 20 Jun, 2011 [facility] [place] [facility] [address] [id number] [place] [address] 14 Jun, 2011 [facility] [place] [facility] [address] [id number] [place] [address] Jun, [facility] [place] [facility] [address] [id number] [place] [address] Jun, [facility] [place] [facility] [address] [id number] [place] [address] May, [facility] [place] [facility] [address] [id number] [place] [address] January, [facility] [place] [facility] [address] [id number] [place] [address] Aug, [facility] [place] [facility] [address] [id number] [place] [address] 27 Aug, 2010 [facility] [address] [id number] [place] [address] Aug, [facility] [address] [id number] [place] [address] 10 Aug, 2010 [facility] [id number] [place] [address] Jul, [facility] [id number] [place] [address] Jul, [facility] [address] [id number] [place] [address] 15 Jun, 2010 [facility] [address] [id number] [place] [address] 15 Jun, 2010 [facility] [address] [id number] [place] [address] 16 May, 2010 [facility] [address] [id number] [place] [address] January, IMMUNIZATIONS No Known Immunizations SOCIAL HISTORY Never Assessed REASON FOR VISIT PLAN OF CARE VITAL SIGNS MEDICATIONS Unknown Medications RESULTS No Results PROCEDURES Procedure Date Ordered Result Body Site VENIPUNCT, ROUTINE* December 02, 2013 ASSAY THYROID STIM HORMONE December 02, 2013 LIPID PANEL December 02, 2013 COMPREHEN METABOLIC PANEL December 02, 2013 INSTRUCTIONS MEDICATIONS ADMINISTERED No Known Medications MEDICAL [...]
--- OUTSIDE RECORDS SUMMARY | 2020-02-13 16:29 | XMS REPORT ---
Author Author Cami GLEZ Organization [facility] Address [address] [place] [address] Care Team Providers Care Merchant [employer] Name Role Phone DON GLEZ Unavailable PROBLEMS Type Condition ICD9-CM Code [id number] Code Onset Dates Condition S tatus SNOMED Code Problem Arthritis M19.90 Active 0034580 Problem Back pain M54.9 Active 244118406 Problem Hypertension I10 Active 7116157 3 Problem Lumbar radiculopathy M54.16 Active 731009495 Problem Venous insufficiency I87.2 Active 05491393 Problem Generalized anxiety disorder F41.1 A ctive 15236686 Problem Depressive disorder, not elsewhere classified F32. 9 Active 79036683 Problem COPD (chronic obstructive pulmonary disease) J44.9 Active 52711524 Problem Vitamin D deficiency E55.9 Active 32255593 ALLERGIES No Information ENCOUNTERS Encounter Location Date Diagnosis [place] [address] [address] Nov, [place] [address] [address] Nov, [facility] [address] [address] 20 Oct, 2019 Radiculopathy, lumbar region M54.16 [facility] [address] [address] Oct, [place] [address] [address] 11 Oct, 2019 Back pain M54.9 [facility] [address] [address] 10 Oct, 2019 [facility] [address] [address] 06 Oct, 2019 Skin sore L98.9 [facility] [address] [address] Sep, Radiculopathy, lumbar region M54.16 [facility] [address] [address] 15 Sep, 2019 Back pain M54.9 [facility] [address] [address] 14 Sep, 2019 Generalized anxiety disorder F41.1 [facility] [address] [address] Aug, Radiculopathy, lumbar region M54.16 [facility] [address] [address] Aug, Back pain M54.9 [facility] [address] [address] Aug, Lumbar radiculopathy M54.16 ; Generalize d anxiety disorder F41.1 and Drug-induced constipation K59.03 [facility] [address] [address] Jul, Radiculopathy, lumbar region M54.16 [facility] [address] [address] Jul, [facility] [address] [address] Jul, [facility] [address] [address] Jul, Back pain M54.9 [facility] [address] [address] Jul, Radiculopathy, lumbar region M54.16 [facility] [address] [address] Jul, Radiculopathy, lumbar region M54.16 [facility] [address] [address] Jun, Back pain M54.9 [facility] [address] [address] Jun, [facility] [address] [address] Jun, Radiculopathy, lumbar region M54.16 [facility] [address] [address] Jun, [facility] [address] [address] 30 May, 2019 Back pain M54.9 [facility] [address] [address] May, Cellulitis of other specified site L03.8 18 ; Dermatitis L30.9 and Lumbar radiculopathy M54.16 [facility] [address] [address] May, [facility] [address] [address] May, Back pain M54.9 [facility] [address] [address] 05 May, 2019 [facility] [address] [address] May, Back pain M54.9 [facility] [address] [address] Apr, [facility] [address] [address] Apr, Back pain M54.9 [facility] [address] [address] Apr, Hyponatremia E87.1 [facility] [address] [address] Apr, Hyponatremia E87.1 [facility] [address] [address] Mar, Arthritis M19.90 ; Impacted cerumen of r ight ear H61.21 and Hypertension I10 [facility] [address] [id number] [id number] Mar, [facility] [address] [address] Mar, Back pain M54.9 [facility] [address] [address] Feb, Back pain M54.9 [facility] [address] [address] Feb, [facility] [address] [address] Feb, Dermatitis L30.9 [facility] [address] [address] January, Dermatitis L30.9 [facility] [address] [address] January, [facility] [address] [address] January, Back pain M54.9 [facility] [address] [address] Dec, [facility] [address] [address] Dec, Back pain M54.9 [facility] [address] [address] Dec, Lumbar radiculopathy M54.16 ; Arthritis M19.90 and Dyshydrosis L30.1 [facility] [address] [address] Nov, Back pain M54.9 [facility] [address] [address] Nov, [facility] [address] [place] [id number] [place] [address] Oct, [facility] [address] [address] Oct, Back pain M54.9 [facility] [address] [address] 14 Oct, 2018 [facility] [address] [address] Oct, [facility] [address] [address] Sep, Back pain M54.9 [facility] [address] [address] Sep, [facility] [address] [address] Aug, Back pain M54.9 [facility] [address] [address] Aug, Encounter for immunization Z23 ; Arthrit is M19.90 and Generalized anxiety disorder F41.1 [facility] [address] [address] Aug, [facility] [address] [address] Aug, [facility] [address] [address] Jul, Back pain M54.9 [facility] [address] [address] Jul, [facility] [address] [address] Jul, [facility] [address] [address] Jun, Back pain M54.9 [facility] [address] [address] Jun, [facility] [address] [address] Jun, Back pain M54.9 [facility] [address] [address] 11 May, 2018 Lumbar radiculopathy M54.16 ; Hypertensi on I10 and Generalized anxiety disorder F41.1 [facility] [address] [address] 06 May, 2018 Back pain M54.9 [facility] [address] [address] Apr, [facility] [address] [address] Apr, [facility] [address] [address] Apr, Back pain M54.9 [facility] [address] [address] Mar, Back pain M54.9 [facility] [address] [address] Feb, [facility] [address] [address] Feb, [facility] [address] [address] Feb, [facility] [address] [address] Feb, Back pain M54.9 [facility] [address] [address] Feb, Back pain M54.9 ; Hypertension I10 ; Gen eralized anxiety disorder F41.1 and Venous insufficiency I87.2 [facility] [address] [address] January, [facility] [address] [address] January, Back pain M54.9 [facility] [address] [address] Dec, [facility] [address] [address] Dec, Back pain M54.9 [facility] [address] [address] Nov, Back pain M54.9 [facility] [address] [address] Nov, [facility] [address] [address] Nov, Lumbar radiculopathy M54.16 ; Hypertensi on I10 ; Arthritis M19.90 and Back pain M54.9 [facility] [address] [address] Oct, Back pain M54.9 [facility] [address] [address] Oct, [facility] [address] [address] Sep, Back pain M54.9 [facility] [address] [address] Sep, [facility] [address] [address] Aug, Back pain M54.9 [facility] [address] [address] Jul, Back pain M54.9 [facility] [address] [address] 09 Jul, 2017 Encounter for immunization Z23 ; Back pa in M54.9 ; Hypertension I10 and Lumbar radiculopathy M54.16 [facility] [address] [address] Jul, Back pain M54.9 [facility] [address] [address] Jun, Vitamin D deficiency E55.9 [facility] [address] [address] 04 Jun, 2017 Back pain M54.9 [facility] [address] [address] May, [facility] [address] [address] 08 May, 2017 [facility] [address] [address] 08 May, 2017 [facility] [address] [address] May, Back pain M54.9 [facility] [address] [address] 15 Apr, 2017 Back pain M54.9 ; Hypertension I10 ; Art hritis M19.90 and Generalized anxiety disorder F41.1 [facility] [address] [address] Apr, Back pain M54.9 [facility] [address] [address] Mar, Back pain M54.9 [facility] [address] [address] Mar, Vitamin D deficiency E55.9 [facility] [address] [address] 15 Feb, 2017 Vitamin D deficiency E55.9 [facility] [address] [address] 14 Feb, 2017 Vitamin D deficiency E55.9 [facility] [address] [address] 13 Feb, 2017 Back pain M54.9 [facility] [address] [address] January, Back pain M54.9 [facility] [address] [address] January, Arthritis M19.90 [facility] [address] [address] January, Vitamin D deficiency E55.9 and Arthritis M19.90 [facility] [address] [address] Dec, Medicare annual wellness visit, initial Z00.00 and Encounter for immunization Z23 [place] [address] [address] Dec, Back pain M54.9 [place] [address] [address] Nov, Back pain M54.9 [place] [address] [address] Oct, Back pain M54.9 [facility] [address] [address] Oct, COPD (chronic obstructive pulmonary dise ase) J44.9 [place] [address] [address] Oct, [place] [address] [address] Oct, Hypertension I10 ; Back pain M54.9 and E ncounter for immunization Z23 [facility] [address] [address] Sep, [facility] [address] [address] Sep, Back pain M54.9 [facility] [address] [address] Sep, Back pain M54.9 [facility] [address] [address] Aug, [facility] [address] [place] [id number] [place] [address] Aug, Back pain M54.9 [facility] [address] [place] [id number] [place] [address] Aug, [facility] [address] [place] [id number] [place] [address] Aug, [facility] [address] [address] Aug, Back pain M54.9 [facility] [address] [address] Jul, [facility] [address] [address] Jul, Back pain M54.9 [facility] [address] [address] Jun, Back pain M54.9 ; Hypertension I10 ; Gen eralized anxiety disorder F41.1 and Encounter for immunization Z23 [facility] [address] [address] Jun, [facility] [address] [address] May, [facility] [address] [address] Apr, [facility] [address] [address] Apr, [facility] [address] [address] Mar, [facility] [address] [address] Mar, [facility] [address] [address] Mar, [facility] [address] [address] Feb, Back pain M54.9 and Hypertension I10 [facility] [address] [address] Feb, Back pain M54.9 [facility] [address] [address] Dec, COPD (chronic obstructive pulmonary dise ase) J44.9 [facility] [address] [address] Dec, [facility] [address] [address] Dec, Back pain M54.9 [facility] [address] [address] Nov, Back pain M54.9 [facility] [address] [address] Nov, COPD (chronic obstructive pulmonary dise ase) J44.9 [facility] [address] [address] Nov, Hypertension I10 and Back pain M54.9 [facility] [address] [address] Oct, Hypertension I10 and Back pain M54.9 [facility] [address] [address] Oct, Back pain M54.9 [facility] [address] [address] Sep, Back pain M54.9 [facility] [address] [address] Sep, [facility] [address] [address] Sep, [facility] [address] [address] Sep, [facility] [address] [address] Sep, [facility] [address] [address] Aug, [facility] [address] [address] Aug, [facility] [address] [address] Aug, [facility] [address] [address] Aug, [facility] [address] [address] Aug, [facility] [address] [address] Jul, [facility] [address] [address] Jul, Back pain M54.9 ; Arthritis M19.90 ; Hyp ertension I10 and Encounter for immunization Z23 [facility] [address] [address] Jul, Generalized anxiety disorder F41.1 and D epressive disorder, not elsewhere classified F32.9 [facility] [address] [address] Jul, [facility] [address] [address] Jul, [facility] [address] [address] Jul, [facility] [address] [address] Jun, [facility] [address] [address] Jun, [facility] [address] [address] May, [facility] [address] [address] May, [facility] [address] [place] [id number] [place] [address] May, [facility] [address] [place] [id number] [place] [address] May, [facility] [address] [place] [id number] [place] [address] May, Benign essential hypertension 401.1 ; An xiety state, unspecified 300.00 ; Back pain 724.5 and Arthritis 716.90 [facility] [address] [place] [id number] [place] [address] May, [facility] [address] [place] [id number] [place] [address] Apr, [facility] [address] [place] [id number] [place] [address] Apr, [facility] [address] [place] [id number] [place] [address] Apr, [facility] [address] [place] [id number] [place] [address] Mar, [facility] [address] [place] [id number] [place] [address] Mar, [facility] [address] [place] [address] [id number] [place] [address] Mar, [facility] [id number] [place] [address] Feb, High risk medication use V58.69 [facility] [address] [id number] [place] [address] Feb, Benign essential hypertension 401.1 ; An xiety state, unspecified 300.00 and Chronic pain 338.29 [facility] [id number] [place] [address] Feb, [facility] [address] [id number] [place] [address] January, [facility] [id number] [place] [address] January, [facility] [address] [id number] [place] [address] January, [facility] [address] [id number] [place] [address] January, [facility] [address] [id number] [place] [address] Dec, [facility] [address] [id number] [place] [address] Dec, [facility] [address] [id number] [facility] [place] [address] Nov, [facility] [address] [id number] [place] [address] Nov, [facility] [address] [id number] [place] [address] Nov, [facility] [address] [id number] [place] [address] Nov, [facility] [address] [id number] [place] [address] Oct, [facility] [address] [id number] [place] [address] Oct, [facility] [address] [id number] [place] [address] Oct, [facility] [address] [id number] [place] [address] Oct, [facility] [address] [id number] [place] [address] Oct, [facility] [address] [id number] [place] [address] Sep, [facility] [address] [id number] [place] [address] Sep, [facility] [address] [id number] [place] [address] Sep, [facility] [address] [id number] [place] [address] Sep, [facility] [address] [id number] [place] [address] Aug, [facility] [address] [id number] [place] [address] Aug, [facility] [address] [id number] [place] [address] Aug, [facility] [address] [id number] [place] [address] Aug, [facility] [address] [id number] [place] [address] Aug, [facility] [address] [id number] [place] [address] Aug, [facility] [address] [id number] [place] [address] Jul, [facility] [address] [id number] [place] [address] Jul, [facility] [address] [id number] [place] [address] Jun, [facility] [address] [id number] [place] [address] Jun, [facility] [address] [id number] [place] [address] Jun, [facility] [address] [id number] [place] [address] Jun, [facility] [address] [id number] [place] [address] May, [facility] [id number] [place] [address] May, [facility] [address] [id number] [place] [address] May, [facility] [address] [id number] [place] [address] May, [facility] [address] [facility] [id number] [place] [address] Apr, [facility] [address] [id number] [place] [address] Apr, [facility] [address] [id number] [place] [address] Apr, [facility] [address] [id number] [place] [address] Apr, [facility] [address] [facility] [id number] [place] [address] Apr, [facility] [address] [id number] [place] [address] Apr, [facility] [address] [id number] [place] [address] Mar, [facility] [address] [id number] [place] [address] Mar, [facility] [address] [id number] [place] [address] Mar, [facility] [address] [id number] [place] [address] Mar, [facility] [address] [id number] [place] [address] Feb, [facility] [address] [id number] [place] [address] Feb, [facility] [address] [id number] [place] [address] Feb, [facility] [address] [id number] [place] [address] January, [facility] [address] [id number] [place] [address] January, [facility] [address] [id number] [place] [address] January, [facility] [address] [id number] [place] [address] January, [facility] [address] [facility] [id number] [facility] [place] [address] January, [facility] [address] [facility] [id number] [place] [address] January, [facility] [address] [id number] [facility] [place] [address] January, [facility] [address] [id number] [facility] [place] [address] January, [facility] [address] [facility] [id number] [facility] [place] [address] Dec, [facility] [address] [id number] [place] [address] Dec, [facility] [address] [id number] [place] [address] Dec, [facility] [address] [id number] [place] [address] Dec, [facility] [address] [id number] [place] [place] [address] Dec, [facility] [address] [id number] [place] [address] Dec, [facility] [address] [id number] [place] [address] Dec, [facility] [address] [id number] [place] [address] Nov, [facility] [address] [facility] [id number] [facility] [place] [address] Nov, [facility] [address] [id number] [place] [address] Nov, [facility] [address] [id number] [place] [address] Nov, [facility] [address] [id number] [place] [address] Nov, [facility] [address] [id number] [place] [address] 18 Nov, 2013 [facility] [address] [id number] [place] [address] 11 Nov, 2013 [facility] [address] [id number] [place] [address] 11 Nov, 2013 [facility] [address] [id number] [place] [address] 07 Nov, 2013 [facility] [address] [id number] [place] [address] 07 Nov, 2013 [facility] [address] [id number] [place] [address] 07 Nov, 2013 [facility] [address] [id number] [place] [address] 07 Nov, 2013 [facility] [address] [id number] [place] [address] 07 Oct, 2013 [facility] [address] [id number] [place] [address] 07 Oct, 2013 [facility] [address] [id number] [place] [address] Sep, [facility] [address] [id number] [place] [address] Sep, [facility] [address] [id number] [place] [address] Sep, [facility] [address] [id number] [place] [address] Sep, [facility] [address] [id number] [place] [address] Aug, [facility] [address] [id number] [place] [address] Aug, [facility] [address] [id number] [place] [address] 15 Jul, 2013 [facility] [address] [id number] [place] [address] Jul, [facility] [address] [id number] [place] [address] 15 Jul, 2013 [facility] [address] [id number] [place] [address] Jul, [facility] [address] [id number] [place] [address] Jun, [facility] [address] [id number] [place] [address] 28 Jun, 2013 [facility] [address] [facility] [id number] [place] [address] Jun, [facility] [address] [id number] [place] [address] 18 Jun, 2013 [facility] [address] [id number] [place] [address] Jun, [facility] [address] [id number] [place] [address] 14 Jun, 2013 [facility] [address] [id number] [place] [address] 20 May, 2013 [facility] [address] [id number] [place] [address] 18 May, 2013 [facility] [address] [id number] [place] [address] 16 May, 2013 [facility] [address] [id number] [place] [address] Apr, [facility] [address] [id number] [place] [address] Apr, [facility] [address] [id number] [place] [address] Apr, [facility] [address] [id number] [place] [address] Mar, [facility] [address] [id number] [place] [address] Mar, [facility] [address] [id number] [place] [address] 24 Feb, 2013 [facility] [address] [facility] [id number] [place] [address] Feb, [facility] [address] [id number] [place] [address] Feb, [facility] [address] [id number] [place] [address] January, [facility] [address] [id number] [place] [address] January, [facility] [address] [id number] [place] [address] January, [facility] [address] [id number] [place] [address] 15 Dec, 2012 [facility] [address] [id number] [place] [address] Dec, [facility] [address] [id number] [place] [address] 08 Dec, 2012 [facility] [address] [id number] [place] [address] Nov, [facility] [address] [id number] [place] [address] Nov, [facility] [address] [id number] [place] [address] Nov, [facility] [address] [id number] [place] [address] 18 Oct, 2012 [facility] [address] [id number] [place] [address] 14 Oct, 2012 [facility] [address] [id number] [place] [address] Sep, [facility] [address] [id number] [place] [address] Sep, [facility] [address] [id number] [place] [address] Sep, [facility] [address] [id number] [place] [address] Aug, [facility] [address] [id number] [place] [address] Aug, [facility] [address] [id number] [place] [address] Aug, [facility] [address] [id number] [place] [address] Aug, [facility] [address] [id number] [place] [address] Aug, [facility] [address] [id number] [place] [address] Jul, [facility] [address] [id number] [place] [address] Jul, [facility] [id number] [place] [address] Jul, [facility] [id number] [place] [address] Jul, [facility] [address] [id number] [place] [address] Jul, [facility] [address] [id number] [place] [address] Jul, [facility] [address] [id number] [place] [address] Jun, [facility] [address] [id number] [place] [address] Jun, [facility] [address] [id number] [place] [address] Jun, [facility] [id number] [place] [address] Jun, [facility] [address] [id number] [place] [address] 13 May, 2012 [facility] [address] [id number] [place] [address] 06 Sep, 2012 [facility] [address] [facility] [id number] [place] [address] Apr, [facility] [address] [id number] [place] [address] Apr, [facility] [address] [id number] [place] [address] Apr, [facility] [address] [id number] [place] [address] 17 Mar, 2012 [facility] [address] [id number] [place] [address] Mar, [facility] [address] [id number] [place] [address] Feb, [facility] [address] [id number] [place] [address] January, [facility] [address] [id number] [place] [address] January, [facility] [address] [id number] [place] [address] Dec, [facility] [address] [id number] [place] [address] Dec, [facility] [address] [id number] [place] [address] Dec, [facility] [address] [id number] [place] [address] Dec, [facility] [address] [id number] [place] [address] 30 Nov, 2011 [facility] [address] [id number] [place] [address] Nov, [facility] [address] [id number] [place] [address] 15 Nov, 2011 [facility] [address] [id number] [place] [address] Nov, [facility] [address] [id number] [place] [address] 14 Oct, 2011 [facility] [address] [id number] [place] [address] 09 Oct, 2011 [facility] [address] [id number] [place] [address] 13 Sep, 2011 [facility] [id number] [place] [address] 30 Aug, 2011 [facility] [address] [id number] [place] [address] Aug, [facility] [address] [id number] [place] [address] Aug, [facility] [id number] [place] [address] Jul, [facility] [id number] [place] [address] Jul, [facility] [id number] [place] [address] Jul, [facility] [address] [id number] [place] [address] 20 Jun, 2011 [facility] [id number] [place] [address] 14 Jun, 2011 [facility] [id number] [place] [address] 13 Jun, 2011 [facility] [id number] [place] [address] 13 Jun, 2011 [facility] [address] [id number] [place] [address] May, [facility] [id number] [place] [address] January, [facility] [address] [id number] [place] [address] Aug, [facility] [id number] [place] [address] Aug, [facility] [address] [id number] [place] [address] Aug, [facility] [id number] [place] [address] Aug, [facility] [address] [id number] [place] [address] Jul, [facility] [id number] [place] [address] Jul, [facility] [id number] [place] [address] Jun, [facility] [id number] [place] [address] Jun, [facility] [address] [id number] [place] [address] May, [facility] [address] [id number] [place] [address] January, IMMUNIZATIONS No Known Immunizations SOCIAL HISTORY [...]
--- OUTSIDE RECORDS SUMMARY | 2020-02-13 16:29 | XMS REPORT ---
Author Author Cami GLEZ Organization [facility] Address [address] [place] [address] Care Team Providers Care Manager Center Name Role Phone ODN GLEZ Unavailable PROBLEMS Type Condition ICD9-CM Code XRZ31-RB Code Onset Dates Condition S tatus SNOMED Code Problem Hypertension I10 Active 0318947 3 Problem Generalized anxiety disorder F41.1 A ctive 65712420 Problem Depressive disorder, not elsewhere classified F32. 9 Active 47301319 Problem Basal cell carcinoma (BCC) of skin of right ear C4 4.212 Active 196922563 Problem Back pain M54.9 Active 602818671 Problem Skin ulcer of left foot with fat layer exposed L97 .522 Active 93745496 Problem Arthritis M19.90 Active 3953174 Problem COPD (chronic obstructive pulmonary disease) J44.9 Active 32654104 Problem Vitamin D deficiency E55.9 Active 76118523 Problem Lumbar radiculopathy M54.16 Active 551515740 Problem Venous insufficiency I87.2 Active 16579141 ALLERGIES No Information ENCOUNTERS Encounter Location Date Diagnosis [place] [address] [address] Feb, [place] [address] [address] Nov, [place] [address] [address] 18 Nov, 2019 [place] [address] [address] 17 Nov, 2019 Weight loss R63.4 ; Skin ulcer of left f oot with fat layer exposed L97.522 ; Basal cell carcinoma (BCC) of skin of right ear C44.212 ; Hypertension I10 and Lumbar radiculopathy M54.16 [place] [address] [address] 11 Nov, 2019 Back pain M54.9 and Radiculopathy, lumba r region M54.16 [facility] [address] [address] 20 Oct, 2019 Radiculopathy, lumbar region M54.16 [facility] [address] [address] 19 Oct, 2019 [facility] [address] [address] 11 Oct, 2019 Back pain M54.9 [facility] [address] [address] 10 Oct, 2019 [facility] [address] [address] 06 Oct, 2019 Skin sore L98.9 [facility] [address] [address] 24 Sep, 2019 Radiculopathy, lumbar region M54.16 [facility] [address] [address] 15 Sep, 2019 Back pain M54.9 [place] [address] [address] 14 Sep, 2019 Generalized anxiety disorder F41.1 [facility] [address] [address] Aug, Radiculopathy, lumbar region M54.16 [facility] [address] [address] Aug, Back pain M54.9 [facility] [address] [address] Aug, Lumbar radiculopathy M54.16 ; Generalize d anxiety disorder F41.1 and Drug-induced constipation K59.03 [facility] [address] [address] Jul, Radiculopathy, lumbar region M54.16 [facility] [address] [address] Jul, [facility] [address] [address] Jul, [facility] [address] [address] Jul, Back pain M54.9 [facility] [address] [address] Jul, Radiculopathy, lumbar region M54.16 [facility] [address] [address] Jul, Radiculopathy, lumbar region M54.16 [facility] [address] [address] Jun, Back pain M54.9 [facility] [address] [address] Jun, [facility] [address] [address] Jun, Radiculopathy, lumbar region M54.16 [facility] [address] [address] Jun, [facility] [address] [address] May, Back pain M54.9 [facility] [address] [address] May, Cellulitis of other specified site L03.8 18 ; Dermatitis L30.9 and Lumbar radiculopathy M54.16 [facility] [address] [address] May, [facility] [address] [address] May, Back pain M54.9 [facility] [address] [address] 05 May, 2019 [facility] [address] [address] May, Back pain M54.9 [facility] [address] [address] 14 Apr, 2019 [facility] [address] [address] Apr, Back pain M54.9 [facility] [address] [address] Apr, Hyponatremia E87.1 [facility] [address] [address] Apr, Hyponatremia E87.1 [facility] [address] [address] Mar, Arthritis M19.90 ; Impacted cerumen of r ight ear H61.21 and Hypertension I10 [facility] [address] [place] [id number] [id number] 16 Mar, 2019 [facility] [address] [address] Mar, Back pain M54.9 [facility] [address] [address] Feb, Back pain M54.9 [facility] [address] [address] Feb, [facility] [address] [address] Feb, Dermatitis L30.9 [facility] [address] [address] January, Dermatitis L30.9 [facility] [address] [address] January, [facility] [address] [address] January, Back pain M54.9 [facility] [address] [address] Dec, [facility] [address] [address] Dec, Back pain M54.9 [facility] [address] [address] Dec, Lumbar radiculopathy M54.16 ; Arthritis M19.90 and Dyshydrosis L30.1 [facility] [address] [address] Nov, Back pain M54.9 [facility] [address] [address] Nov, [facility] [address] [address] Oct, [facility] [address] [address] Oct, Back pain M54.9 [facility] [address] [address] Oct, [facility] [address] [address] Oct, [facility] [address] [address] Sep, Back pain M54.9 [facility] [address] [address] Sep, [facility] [address] [address] Aug, Back pain M54.9 [facility] [address] [address] Aug, Encounter for immunization Z23 ; Arthrit is M19.90 and Generalized anxiety disorder F41.1 [facility] [address] [address] 14 Aug, 2018 [facility] [address] [address] Aug, [facility] [address] [address] Jul, Back pain M54.9 [facility] [address] [address] Jul, [facility] [address] [address] Jul, [facility] [address] [address] Jun, Back pain M54.9 [facility] [address] [address] Jun, [facility] [address] [address] Jun, Back pain M54.9 [facility] [address] [address] May, Lumbar radiculopathy M54.16 ; Hypertensi on I10 and Generalized anxiety disorder F41.1 [facility] [address] [address] May, Back pain M54.9 [facility] [address] [address] Apr, [facility] [address] [address] Apr, [facility] [address] [address] Apr, Back pain M54.9 [facility] [address] [address] Mar, Back pain M54.9 [facility] [address] [address] Feb, [facility] [address] [address] Feb, [facility] [address] [address] Feb, [facility] [address] [address] 14 Feb, 2018 Back pain M54.9 [facility] [address] [address] Feb, Back pain M54.9 ; Hypertension I10 ; Gen eralized anxiety disorder F41.1 and Venous insufficiency I87.2 [facility] [address] [address] January, [facility] [address] [address] January, Back pain M54.9 [facility] [address] [address] Dec, [facility] [address] [address] Dec, Back pain M54.9 [facility] [address] [address] Nov, Back pain M54.9 [facility] [address] [address] Nov, [facility] [address] [address] Nov, Lumbar radiculopathy M54.16 ; Hypertensi on I10 ; Arthritis M19.90 and Back pain M54.9 [facility] [address] [address] Oct, Back pain M54.9 [facility] [address] [address] Oct, [facility] [address] [address] Sep, Back pain M54.9 [facility] [address] [address] Sep, [facility] [address] [address] Aug, Back pain M54.9 [facility] [address] [address] Jul, Back pain M54.9 [facility] [address] [address] Jul, Encounter for immunization Z23 ; Back pa in M54.9 ; Hypertension I10 and Lumbar radiculopathy M54.16 [place] [address] [address] Jul, Back pain M54.9 [place] [address] [address] Jun, Vitamin D deficiency E55.9 [facility] [address] [address] 04 Jun, 2017 Back pain M54.9 [facility] [address] [address] 20 May, 2017 [facility] [address] [address] 08 May, 2017 [facility] [address] [address] 08 May, 2017 [facility] [address] [address] May, Back pain M54.9 [facility] [address] [address] 15 Apr, 2017 Back pain M54.9 ; Hypertension I10 ; Art hritis M19.90 and Generalized anxiety disorder F41.1 [facility] [address] [address] 08 Apr, 2017 Back pain M54.9 [facility] [address] [place] [id number] [place] [address] 12 Mar, 2017 Back pain M54.9 [facility] [address] [address] 10 Mar, 2017 Vitamin D deficiency E55.9 [facility] [address] [address] 15 Feb, 2017 Vitamin D deficiency E55.9 [facility] [address] [address] 14 Feb, 2017 Vitamin D deficiency E55.9 [facility] [address] [address] 13 Feb, 2017 Back pain M54.9 [facility] [address] [address] January, Back pain M54.9 [place] [address] [address] January, Arthritis M19.90 [place] [address] [address] January, Vitamin D deficiency E55.9 and Arthritis M19.90 [place] [address] [address] Dec, Medicare annual wellness visit, initial Z00.00 and Encounter for immunization Z23 [place] [address] [address] Dec, Back pain M54.9 [facility] [address] [address] Nov, Back pain M54.9 [facility] [address] [address] 24 Oct, 2016 Back pain M54.9 [facility] [address] [address] 14 Oct, 2016 COPD (chronic obstructive pulmonary dise ase) J44.9 [facility] [address] [address] 14 Oct, 2016 [facility] [address] [address] Oct, Hypertension I10 ; Back pain M54.9 and E ncounter for immunization Z23 [facility] [address] [address] Sep, [facility] [address] [address] Sep, Back pain M54.9 [facility] [address] [address] Sep, Back pain M54.9 [facility] [address] [address] Aug, [facility] [address] [address] Aug, Back pain M54.9 [facility] [address] [address] Aug, [facility] [address] [address] Aug, [facility] [address] [address] Aug, Back pain M54.9 [facility] [address] [address] Jul, [facility] [address] [address] Jul, Back pain M54.9 [facility] [address] [address] Jun, Back pain M54.9 ; Hypertension I10 ; Gen eralized anxiety disorder F41.1 and Encounter for immunization Z23 [facility] [address] [address] Jun, [facility] [address] [place] [id number] [place] [address] 08 May, 2016 [facility] [address] [address] Apr, [facility] [address] [address] Apr, [facility] [address] [address] Mar, [facility] [address] [address] Mar, [facility] [address] [address] Mar, [facility] [address] [address] Feb, Back pain M54.9 and Hypertension I10 [facility] [address] [address] Feb, Back pain M54.9 [facility] [address] [address] Dec, COPD (chronic obstructive pulmonary dise ase) J44.9 [facility] [address] [address] Dec, [facility] [address] [address] Dec, Back pain M54.9 [facility] [address] [address] 24 Nov, 2015 Back pain M54.9 [facility] [address] [address] 14 Nov, 2015 COPD (chronic obstructive pulmonary dise ase) J44.9 [facility] [address] [address] 04 Nov, 2015 Hypertension I10 and Back pain M54.9 [facility] [address] [address] Oct, Hypertension I10 and Back pain M54.9 [facility] [address] [address] Oct, Back pain M54.9 [facility] [address] [address] Sep, Back pain M54.9 [facility] [address] [address] Sep, [facility] [address] [address] Sep, [facility] [address] [address] Sep, [facility] [address] [address] Sep, [facility] [address] [address] Aug, [facility] [address] [address] Aug, [facility] [address] [address] Aug, [facility] [address] [address] Aug, [facility] [address] [address] Aug, [facility] [address] [address] Jul, [facility] [address] [address] Jul, Back pain M54.9 ; Arthritis M19.90 ; Hyp ertension I10 and Encounter for immunization Z23 [facility] [address] [address] Jul, Generalized anxiety disorder F41.1 and D epressive disorder, not elsewhere classified F32.9 [facility] [address] [id number] [place] [address] Jul, [facility] [address] [id number] [place] [address] Jul, [facility] [address] [id number] [place] [address] Jul, [facility] [address] [place] [id number] [place] [address] Jun, [facility] [address] [id number] [place] [address] Jun, [facility] [address] [id number] [place] [address] May, [facility] [address] [place] [id number] [place] [address] May, [facility] [address] [place] [id number] [place] [address] May, [facility] [address] [place] [id number] [place] [address] May, [facility] [address] [id number] [place] [address] May, Benign essential hypertension 401.1 ; An xiety state, unspecified 300.00 ; Back pain 724.5 and Arthritis 716.90 [facility] [address] [place] [id number] [place] [address] May, [facility] [address] [place] [id number] [place] [address] Apr, [facility] [address] [id number] [place] [address] Apr, [facility] [address] [place] [id number] [place] [address] Apr, [facility] [address] [id number] [place] [address] Mar, [facility] [address] [place] [id number] [place] [address] Mar, [facility] [address] [place] [id number] [place] [address] Mar, [facility] [address] [place] [id number] [place] [address] Feb, High risk medication use V58.69 [facility] [address] [place] [id number] [place] [address] Feb, Benign essential hypertension 401.1 ; An xiety state, unspecified 300.00 and Chronic pain 338.29 [facility] [address] [place] [id number] [place] [address] Feb, [facility] [address] [place] [id number] [place] [address] January, [facility] [address] [place] [id number] [place] [address] January, [facility] [address] [place] [id number] [place] [address] January, [facility] [address] [place] [id number] [place] [address] January, [facility] [address] [place] [id number] [place] [address] Dec, [facility] [address] [place] [id number] [place] [address] Dec, [facility] [address] [place] [id number] [place] [address] Nov, [facility] [address] [place] [id number] [place] [address] Nov, [facility] [address] [place] [id number] [place] [address] Nov, [facility] [address] [place] [id number] [place] [address] Nov, [facility] [address] [place] [id number] [place] [address] Oct, [facility] [address] [place] [id number] [place] [address] Oct, 2014 [facility] [address] [id number] [place] [address] Oct, [facility] [address] [id number] [place] [address] Oct, [facility] [address] [id number] [place] [address] Oct, [facility] [address] [id number] [place] [address] Sep, [facility] [address] [id number] [place] [address] Sep, [facility] [address] [id number] [place] [address] Sep, [facility] [address] [id number] [place] [address] Sep, [facility] [address] [place] [id number] [place] [address] Aug, [facility] [address] [id number] [place] [address] Aug, [facility] [address] [id number] [place] [address] Aug, [facility] [address] [id number] [place] [address] Aug, [facility] [address] [id number] [place] [address] Aug, [facility] [address] [id number] [place] [address] Aug, [facility] [address] [place] [id number] [place] [address] Jul, [facility] [address] [id number] [place] [address] Jul, [facility] [address] [id number] [place] [address] Jun, [facility] [address] [facility] [id number] [place] [address] Jun, [facility] [address] [facility] [id number] [place] [address] Jun, [facility] [address] [id number] [place] [address] Jun, [facility] [address] [id number] [place] [address] May, [facility] [place] [facility] [address] [facility] [id number] [place] [address] May, [facility] [place] [facility] [address] [id number] [place] [address] May, [facility] [place] [facility] [address] [id number] [place] [address] May, [facility] [place] [facility] [address] [id number] [place] [address] Apr, [facility] [place] [facility] [address] [id number] [place] [address] Apr, [facility] [place] [facility] [address] [id number] [place] [address] Apr, [facility] [place] [facility] [address] [id number] [place] [address] Apr, [facility] [place] [facility] [address] [id number] [place] [address] Apr, [facility] [place] [facility] [address] [id number] [place] [address] Apr, [facility] [place] [facility] [address] [id number] [place] [address] Mar, [facility] [place] [facility] [address] [id number] [place] [address] Mar, [facility] [place] [facility] [address] [id number] [place] [address] Mar, [facility] [place] [facility] [address] [id number] [place] [address] Mar, [facility] [place] [facility] [address] [facility] [id number] [place] [address] Feb, [facility] [place] [facility] [address] [facility] [id number] [place] [address] Feb, [facility] [place] [facility] [address] [id number] [place] [address] Feb, [facility] [place] [facility] [address] [id number] [place] [address] January, [facility] [place] [facility] [address] [facility] [id number] [place] [address] January, [facility] [place] [facility] [address] [id number] [place] [address] January, [facility] [place] [facility] [address] [id number] [place] [address] January, [facility] [place] [facility] [address] [id number] [place] [address] January, [facility] [place] [facility] [address] [id number] [place] [address] January, [facility] [place] [facility] [address] [id number] [place] [address] January, [facility] [place] [facility] [address] [id number] [place] [address] January, [facility] [place] [facility] [address] [id number] [place] [address] Dec, [facility] [place] [facility] [address] [facility] [id number] [place] [address] Dec, [facility] [place] [facility] [address] [id number] [place] [address] Dec, [facility] [place] [facility] [address] [id number] [place] [address] Dec, [facility] [place] [facility] [address] [id number] [place] [address] Dec, [facility] [place] [facility] [address] [id number] [place] [address] Dec, [facility] [place] [facility] [address] [facility] [id number] [place] [place] [address] Dec, [facility] [address] [id number] [place] [address] Nov, [facility] [address] [id number] [place] [address] Nov, [facility] [address] [id number] [place] [address] Nov, [facility] [address] [id number] [place] [address] Nov, [facility] [address] [id number] [place] [address] Nov, [facility] [address] [id number] [place] [address] Nov, [facility] [address] [id number] [place] [address] Nov, [facility] [address] [id number] [place] [address] Nov, [facility] [address] [id number] [place] [address] Nov, [facility] [address] [id number] [place] [address] Nov, [facility] [address] [id number] [place] [address] Nov, [facility] [address] [id number] [place] [address] Nov, [facility] [address] [id number] [place] [address] 07 Oct, 2013 [facility] [address] [id number] [place] [address] 07 Oct, 2013 [facility] [address] [id number] [place] [address] Sep, [facility] [address] [id number] [place] [address] Sep, [facility] [address] [id number] [place] [address] Sep, [facility] [address] [id number] [place] [address] Sep, [facility] [address] [id number] [place] [address] Aug, [facility] [address] [id number] [place] [address] Aug, [facility] [address] [id number] [place] [address] Jul, [facility] [address] [id number] [place] [address] 15 Jul, 2013 [facility] [address] [id number] [place] [address] 15 Jul, 2013 [facility] [address] [id number] [place] [address] 15 Jul, 2013 [facility] [address] [id number] [place] [address] 28 Jun, 2013 [facility] [address] [id number] [place] [address] 28 Jun, 2013 [facility] [address] [id number] [place] [address] 18 Jun, 2013 [facility] [address] [id number] [place] [address] 18 Jun, 2013 [facility] [address] [id number] [place] [address] 14 Jun, 2013 [facility] [address] [id number] [place] [address] 14 Jun, 2013 [facility] [address] [id number] [place] [address] 20 May, 2013 [facility] [address] [id number] [place] [address] 18 May, 2013 [facility] [address] [facility] [id number] [place] [address] May, [facility] [address] [id number] [facility] [place] [address] Apr, [facility] [address] [id number] [place] [address] Apr, [facility] [address] [id number] [place] [address] Apr, [facility] [address] [facility] [id number] [facility] [place] [address] Mar, [facility] [address] [id number] [place] [address] Mar, [facility] [address] [id number] [place] [address] Feb, [facility] [address] [id number] [place] [address] Feb, [facility] [address] [id number] [place] [address] Feb, [facility] [address] [id number] [place] [address] January, [facility] [address] [id number] [place] [address] January, [facility] [address] [id number] [place] [address] January, [facility] [address] [id number] [place] [address] 15 Dec, 2012 [facility] [address] [id number] [place] [address] Dec, [facility] [address] [id number] [place] [address] Dec, [facility] [address] [id number] [place] [address] Nov, [facility] [address] [id number] [place] [address] 14 Nov, 2012 [facility] [address] [id number] [place] [address] Nov, [facility] [address] [id number] [place] [address] 18 Oct, 2012 [facility] [address] [id number] [place] [address] Oct, [facility] [address] [id number] [place] [address] Sep, [facility] [address] [id number] [place] [address] Sep, [facility] [address] [id number] [place] [address] Sep, [facility] [address] [id number] [place] [address] Aug, [facility] [address] [id number] [place] [address] Aug, [facility] [address] [id number] [place] [address] Aug, [facility] [address] [id number] [place] [address] Aug, [facility] [address] [id number] [place] [address] Aug, [facility] [address] [id number] [place] [address] Jul, [facility] [address] [id number] [place] [address] Jul, [facility] [id number] [place] [address] Jul, [facility] [address] [id number] [place] [address] Jul, [facility] [id number] [place] [address] Jul, [facility] [address] [id number] [place] [address] Jul, [facility] [address] [id number] [place] [address] Jun, [facility] [address] [id number] [place] [address] Jun, [facility] [address] [id number] [place] [address] Jun, [facility] [address] [id number] [place] [address] Jun, [facility] [address] [id number] [place] [address] May, [facility] [address] [id number] [place] [address] May, [facility] [id number] [place] [address] Apr, [facility] [address] [id number] [place] [address] Apr, [facility] [address] [id number] [place] [address] Apr, [facility] [address] [id number] [place] [address] Mar, [facility] [address] [id number] [place] [address] Mar, [facility] [address] [id number] [place] [address] Feb, [facility] [address] [id number] [place] [address] January, [facility] [address] [id number] [place] [address] January, [facility] [address] [id number] [place] [address] Dec, [facility] [address] [id number] [place] [address] Dec, [facility] [address] [id number] [facility] [place] [address] Dec, [facility] [address] [id number] [place] [address] Dec, [facility] [address] [id number] [place] [address] 30 Nov, 2011 [facility] [address] [id number] [place] [address] Nov, [facility] [address] [id number] [facility] [place] [address] Nov, [facility] [address] [id number] [place] [address] Nov, [facility] [address] [id number] [place] [address] Oct, [facility] [address] [id number] [place] [address] Oct, [facility] [address] [id number] [place] [address] Sep, [facility] [address] [id number] [place] [address] Aug, [facility] [address] [id number] [place] [address] Aug, [facility] [address] [id number] [place] [address] Aug, [facility] [address] [id number] [place] [address] Jul, [facility] [address] [id number] [place] [address] Jul, [facility] [address] [id number] [place] [address] Jul, [facility] [address] [id number] [place] [address] Jun, [facility] [id number] [place] [address] 14 Jun, 2011 [facility] [id number] [place] [address] 13 Jun, 2011 [facility] [id number] [place] [address] 13 Jun, 2011 [facility] [id number] [place] [address] 19 May, 2011 [facility] [id number] [place] [address] 17 Jan, 2011 [facility] [id number] [place] [address] 28 Aug, 2010 [facility] [address] [address] 27 Aug, 2010 [facility] [id number] [place] [address] 10 Aug, 2010 [facility] [id number] [place] [address] Aug, [facility] [id number] [place] [address] Jul, [facility] [id number] [place] [address] Jul, [facility] [id number] [place] [address] 15 Jun, 2010 [facility] [id number] [place] [address] 15 Jun, 2010 [facility] [id number] [place] [address] 16 May, 2010 [facility] [id number] [place] [address] 12 Jan, 2009 IMMUNIZATIONS No Known Immunizations SOCIAL HISTORY Never [...]
--- OUTSIDE RECORDS SUMMARY | 2020-02-13 16:29 | XMS REPORT ---
Author Author Cami GLEZ Organization [facility] Address [address] [place] [address] Care Team Providers Care Sports Book Writer Name Role Phone DON GLEZ Unavailable PROBLEMS Type Condition ICD9-CM Code GGL25-SY Code Onset Dates Condition S tatus SNOMED Code Problem Hypertension I10 Active 9282350 3 Problem Generalized anxiety disorder F41.1 A ctive 58601250 Problem Depressive disorder, not elsewhere classified F32. 9 Active 41960820 Problem Basal cell carcinoma (BCC) of skin of right ear C4 4.212 Active 849510007 Problem Back pain M54.9 Active 094476317 Problem Skin ulcer of left foot with fat layer exposed L97 .522 Active 96448622 Problem Arthritis M19.90 Active 8667633 Problem COPD (chronic obstructive pulmonary disease) J44.9 Active 56964877 Problem Vitamin D deficiency E55.9 Active 21115741 Problem Lumbar radiculopathy M54.16 Active 283251055 Problem Venous insufficiency I87.2 Active 85732977 ALLERGIES No Information ENCOUNTERS Encounter Location Date Diagnosis [place] [address] [address] 16 Feb, 2020 [place] [address] [address] 18 Nov, 2019 [place] [address] [address] 17 Nov, 2019 Weight loss R63.4 ; Skin ulcer of left f oot with fat layer exposed L97.522 ; Basal cell carcinoma (BCC) of skin of right ear C44.212 ; Hypertension I10 and Lumbar radiculopathy M54.16 [place] [address] [address] 11 Nov, 2019 Back pain M54.9 and Radiculopathy, lumba r region M54.16 [facility] [address] [address] 20 Oct, 2019 Radiculopathy, lumbar region M54.16 [facility] [address] [address] 19 Oct, 2019 [facility] [address] [address] 11 Oct, 2019 Back pain M54.9 [facility] [address] [address] 10 Oct, 2019 [facility] [address] [address] 06 Oct, 2019 Skin sore L98.9 [facility] [address] [address] 24 Sep, 2019 Radiculopathy, lumbar region M54.16 [facility] [address] [address] 15 Sep, 2019 Back pain M54.9 [facility] [address] [address] 14 Sep, 2019 Generalized anxiety disorder F41.1 [facility] [address] [address] 30 Aug, 2019 Radiculopathy, lumbar region M54.16 [facility] [address] [address] Aug, Back pain M54.9 [facility] [address] [address] 17 Aug, 2019 Lumbar radiculopathy M54.16 ; Generalize d anxiety disorder F41.1 and Drug-induced constipation K59.03 [facility] [address] [address] Jul, Radiculopathy, lumbar region M54.16 [facility] [address] [address] Jul, [facility] [address] [address] Jul, [facility] [address] [address] Jul, Back pain M54.9 [facility] [address] [address] Jul, Radiculopathy, lumbar region M54.16 [facility] [address] [address] Jul, Radiculopathy, lumbar region M54.16 [facility] [address] [address] Jun, Back pain M54.9 [facility] [address] [address] Jun, [facility] [address] [address] Jun, Radiculopathy, lumbar region M54.16 [facility] [address] [address] Jun, [facility] [address] [address] May, Back pain M54.9 [facility] [address] [address] May, Cellulitis of other specified site L03.8 18 ; Dermatitis L30.9 and Lumbar radiculopathy M54.16 [facility] [address] [address] May, [facility] [address] [address] May, Back pain M54.9 [facility] [address] [address] May, [facility] [address] [address] May, Back pain M54.9 [facility] [address] [address] Apr, [facility] [address] [address] Apr, Back pain M54.9 [facility] [address] [address] Apr, Hyponatremia E87.1 [facility] [address] [address] Apr, Hyponatremia E87.1 [facility] [address] [address] Mar, Arthritis M19.90 ; Impacted cerumen of r ight ear H61.21 and Hypertension I10 [facility] [id number] [place] [id number] Mar, [facility] [address] [address] Mar, Back pain M54.9 [facility] [address] [address] Feb, Back pain M54.9 [facility] [address] [address] Feb, [facility] [address] [address] Feb, Dermatitis L30.9 [facility] [address] [address] January, Dermatitis L30.9 [facility] [address] [address] January, [facility] [address] [address] January, Back pain M54.9 [facility] [address] [address] 18 Dec, 2018 [facility] [address] [address] Dec, Back pain M54.9 [facility] [address] [address] 09 Dec, 2018 Lumbar radiculopathy M54.16 ; Arthritis M19.90 and Dyshydrosis L30.1 [facility] [address] [address] Nov, Back pain M54.9 [facility] [address] [address] Nov, [facility] [address] [address] Oct, [facility] [address] [address] Oct, Back pain M54.9 [facility] [address] [address] Oct, [facility] [address] [address] Oct, [facility] [address] [address] Sep, Back pain M54.9 [facility] [address] [address] Sep, [facility] [address] [address] Aug, Back pain M54.9 [facility] [address] [address] Aug, Encounter for immunization Z23 ; Arthrit is M19.90 and Generalized anxiety disorder F41.1 [facility] [address] [address] Aug, [facility] [address] [address] Aug, [facility] [address] [address] Jul, Back pain M54.9 [facility] [address] [address] Jul, [facility] [address] [address] Jul, [facility] [address] [address] Jun, Back pain M54.9 [facility] [address] [address] Jun, [facility] [address] [address] Jun, Back pain M54.9 [facility] [address] [address] May, Lumbar radiculopathy M54.16 ; Hypertensi on I10 and Generalized anxiety disorder F41.1 [facility] [address] [address] May, Back pain M54.9 [facility] [address] [address] Apr, [facility] [address] [address] Apr, [facility] [address] [address] Apr, Back pain M54.9 [facility] [address] [address] Mar, Back pain M54.9 [facility] [address] [address] Feb, [facility] [address] [address] Feb, [facility] [address] [address] Feb, [facility] [address] [address] 14 Feb, 2018 Back pain M54.9 [facility] [address] [address] Feb, Back pain M54.9 ; Hypertension I10 ; Gen eralized anxiety disorder F41.1 and Venous insufficiency I87.2 [facility] [address] [address] January, [facility] [address] [address] January, Back pain M54.9 [facility] [address] [address] Dec, [facility] [address] [address] Dec, Back pain M54.9 [facility] [address] [address] Nov, Back pain M54.9 [facility] [address] [address] Nov, [facility] [address] [address] Nov, Lumbar radiculopathy M54.16 ; Hypertensi on I10 ; Arthritis M19.90 and Back pain M54.9 [facility] [address] [address] Oct, Back pain M54.9 [facility] [address] [address] Oct, [facility] [address] [address] Sep, Back pain M54.9 [facility] [address] [address] Sep, [facility] [address] [address] Aug, Back pain M54.9 [facility] [address] [address] 30 Jul, 2017 Back pain M54.9 [facility] [address] [address] 09 Jul, 2017 Encounter for immunization Z23 ; Back pa in M54.9 ; Hypertension I10 and Lumbar radiculopathy M54.16 [place] [address] [address] Jul, Back pain M54.9 [facility] [address] [address] 18 Jun, 2017 Vitamin D deficiency E55.9 [facility] [address] [address] 04 Jun, 2017 Back pain M54.9 [facility] [address] [address] 20 May, 2017 [facility] [address] [address] 08 May, 2017 [facility] [address] [address] 08 May, 2017 [facility] [address] [address] May, Back pain M54.9 [facility] [address] [address] 15 Apr, 2017 Back pain M54.9 ; Hypertension I10 ; Art hritis M19.90 and Generalized anxiety disorder F41.1 [facility] [address] [address] 08 Apr, 2017 Back pain M54.9 [facility] [address] [address] Mar, Back pain M54.9 [facility] [address] [place] [id number] [place] [address] 10 Mar, 2017 Vitamin D deficiency E55.9 [facility] [address] [place] [id number] [place] [address] 15 Feb, 2017 Vitamin D deficiency E55.9 [facility] [address] [place] [id number] [place] [address] 14 Feb, 2017 Vitamin D deficiency E55.9 [facility] [address] [place] [id number] [place] [address] 13 Feb, 2017 Back pain M54.9 [facility] [address] [address] 19 Jan, 2017 Back pain M54.9 [facility] [address] [address] January, Arthritis M19.90 [facility] [address] [address] January, Vitamin D deficiency E55.9 and Arthritis M19.90 [facility] [address] [address] Dec, Medicare annual wellness visit, initial Z00.00 and Encounter for immunization Z23 [place] [address] [address] Dec, Back pain M54.9 [facility] [address] [address] Nov, Back pain M54.9 [facility] [address] [address] 24 Oct, 2016 Back pain M54.9 [facility] [address] [address] 14 Oct, 2016 COPD (chronic obstructive pulmonary dise ase) J44.9 [facility] [address] [address] 14 Oct, 2016 [facility] [address] [address] Oct, Hypertension I10 ; Back pain M54.9 and E ncounter for immunization Z23 [facility] [address] [address] Sep, [facility] [address] [address] Sep, Back pain M54.9 [facility] [address] [address] Sep, Back pain M54.9 [facility] [address] [address] Aug, [facility] [address] [address] Aug, Back pain M54.9 [facility] [address] [address] Aug, [facility] [address] [address] Aug, [facility] [address] [address] Aug, Back pain M54.9 [facility] [address] [address] Jul, [facility] [address] [address] Jul, Back pain M54.9 [facility] [address] [address] Jun, Back pain M54.9 ; Hypertension I10 ; Gen eralized anxiety disorder F41.1 and Encounter for immunization Z23 [facility] [address] [address] Jun, [facility] [address] [address] May, [facility] [address] [address] Apr, [facility] [address] [address] Apr, [facility] [address] [address] Mar, [facility] [address] [address] Mar, [facility] [address] [address] Mar, [facility] [address] [address] Feb, Back pain M54.9 and Hypertension I10 [facility] [address] [address] Feb, Back pain M54.9 [facility] [address] [address] Dec, COPD (chronic obstructive pulmonary dise ase) J44.9 [facility] [address] [address] Dec, [facility] [address] [address] Dec, Back pain M54.9 [facility] [address] [address] 24 Nov, 2015 Back pain M54.9 [facility] [address] [address] 14 Nov, 2015 COPD (chronic obstructive pulmonary dise ase) J44.9 [facility] [address] [address] 04 Nov, 2015 Hypertension I10 and Back pain M54.9 [facility] [address] [address] Oct, Hypertension I10 and Back pain M54.9 [facility] [address] [address] Oct, Back pain M54.9 [facility] [address] [address] Sep, Back pain M54.9 [facility] [address] [address] Sep, [facility] [address] [address] Sep, [facility] [address] [address] Sep, [facility] [address] [address] Sep, [facility] [address] [address] Aug, [facility] [address] [address] Aug, [facility] [address] [address] Aug, [facility] [address] [address] Aug, [facility] [address] [address] Aug, [facility] [address] [address] Jul, [facility] [address] [address] Jul, Back pain M54.9 ; Arthritis M19.90 ; Hyp ertension I10 and Encounter for immunization Z23 [facility] [address] [address] Jul, Generalized anxiety disorder F41.1 and D epressive disorder, not elsewhere classified F32.9 [facility] [address] [address] Jul, [facility] [address] [id number] [place] [address] 17 Jul, 2015 [facility] [address] [id number] [place] [address] 16 Jul, 2015 [facility] [address] [id number] [place] [address] Jun, [facility] [address] [place] [id number] [place] [address] Jun, [facility] [address] [place] [id number] [place] [address] May, [facility] [address] [place] [id number] [place] [address] May, [facility] [address] [place] [id number] [place] [address] May, [facility] [address] [place] [id number] [place] [address] May, [facility] [address] [place] [id number] [place] [address] May, Benign essential hypertension 401.1 ; An xiety state, unspecified 300.00 ; Back pain 724.5 and Arthritis 716.90 [facility] [address] [place] [id number] [place] [address] May, [facility] [address] [place] [id number] [place] [address] Apr, [facility] [address] [place] [id number] [place] [address] Apr, [facility] [address] [place] [id number] [place] [address] Apr, [facility] [address] [place] [id number] [place] [address] Mar, [facility] [address] [id number] [place] [address] Mar, [facility] [address] [place] [id number] [place] [address] Mar, [facility] [address] [place] [id number] [place] [address] Feb, High risk medication use V58.69 [facility] [address] [place] [id number] [place] [address] Feb, Benign essential hypertension 401.1 ; An xiety state, unspecified 300.00 and Chronic pain 338.29 [facility] [address] [place] [id number] [place] [address] Feb, [facility] [address] [place] [id number] [place] [address] January, [facility] [address] [address] January, [facility] [address] [place] [id number] [place] [address] January, [facility] [address] [place] [address] [id number] [place] [address] January, [facility] [address] [place] [id number] [place] [address] Dec, [facility] [address] [address] [id number] [place] [address] Dec, [facility] [address] [place] [id number] [place] [address] Nov, [facility] [address] [place] [id number] [place] [address] Nov, [facility] [address] [place] [id number] [place] [address] Nov, [facility] [address] [place] [id number] [place] [address] Nov, [facility] [id number] [place] [address] Oct, [facility] [address] [place] [id number] [place] [address] Oct, [facility] [id number] [place] [address] Oct, 2014 [facility] [address] [id number] [place] [address] Oct, [facility] [address] [id number] [place] [address] Oct, [facility] [address] [id number] [place] [address] Sep, [facility] [address] [id number] [place] [address] Sep, [facility] [address] [id number] [place] [address] Sep, [facility] [address] [id number] [place] [address] Sep, [facility] [address] [id number] [place] [address] Aug, [facility] [address] [id number] [place] [address] Aug, [facility] [address] [id number] [place] [address] Aug, [facility] [address] [id number] [place] [address] Aug, [facility] [address] [id number] [place] [address] Aug, [facility] [address] [id number] [place] [address] Aug, [facility] [address] [id number] [place] [address] Jul, [facility] [id number] [place] [address] Jul, [facility] [address] [id number] [place] [address] Jun, [facility] [address] [id number] [place] [address] Jun, [facility] [address] [id number] [place] [address] Jun, [facility] [address] [facility] [id number] [place] [address] Jun, [facility] [address] [id number] [place] [address] May, [facility] [address] [id number] [place] [address] May, [facility] [address] [facility] [id number] [place] [address] May, [facility] [address] [id number] [place] [address] May, [facility] [address] [id number] [place] [address] Apr, [facility] [address] [id number] [place] [address] Apr, [facility] [address] [id number] [place] [address] Apr, [facility] [address] [id number] [place] [address] Apr, [facility] [address] [id number] [place] [address] Apr, [facility] [address] [id number] [place] [address] Apr, [facility] [address] [id number] [place] [address] Mar, [facility] [address] [facility] [id number] [place] [address] Mar, [facility] [address] [id number] [place] [address] Mar, [facility] [address] [id number] [place] [address] Mar, [facility] [address] [id number] [place], [place] [address] Feb, [facility] [place] [facility] [address] [id number] [place] [address] Feb, [facility] [place] [facility] [address] [facility] [id number] [place] [address] Feb, [facility] [place] [facility] [address] [id number] [place] [address] January, [facility] [place] [facility] [address] [id number] [place] [address] January, [facility] [place] [facility] [address] [facility] [id number] [place] [address] January, [facility] [place] [facility] [address] [id number] [place] [address] January, [facility] [place] [facility] [address] [id number] [place] [address] January, [facility] [place] [facility] [address] [id number] [place] [address] January, [facility] [place] [facility] [address] [id number] [place] [address] January, [facility] [place] [facility] [address] [id number] [place] [address] January, [facility] [place] [facility] [address] [id number] [place] [address] Dec, [facility] [place] [facility] [address] [id number] [place] [address] Dec, [facility] [place] [facility] [address] [facility] [id number] [place] [address] Dec, [facility] [place] [facility] [address] [id number] [place] [address] Dec, [facility] [place] [facility] [address] [id number] [place] [address] Dec, [facility] [place] [facility] [address] [id number] [place] [address] Dec, [facility] [place] [facility] [address] [id number] [place] [address] Dec, [facility] [place] [facility] [address] [facility] [id number] [place] [address] Nov, [facility] [place] [facility] [address] [id number] [place] [address] Nov, [facility] [place] [facility] [address] [id number] [place] [address] Nov, [facility] [place] [facility] [address] [id number] [place] [address] Nov, [facility] [place] [facility] [address] [id number] [place] [address] Nov, [facility] [place] [facility] [address] [id number] [place] [address] Nov, [facility] [place] [facility] [address] [id number] [place] [address] Nov, [facility] [place] [facility] [address] [id number] [place] [address] Nov, [facility] [place] [facility] [address] [id number] [place] [address] Nov, [facility] [place] [facility] [address] [id number] [place] [address] Nov, [facility] [place] [facility] [address] [id number] [place] [address] Nov, [facility] [place] [facility] [address] [id number] [place] [address] Nov, [facility] [place] [facility] [address] [id number] [place] [address] 07 Oct, 2013 [facility] [place] [facility] [address] [id number] [place] [address] 07 Oct, 2013 [facility] [place] [facility] [address] [id number] [place] [address] Sep, [facility] [place] [facility] [address] [id number] [place] [address] Sep, [facility] [place] [facility] [address] [id number] [place] [address] 10 Sep, 2013 [facility] [place] [facility] [address] [id number] [place] [address] Sep, [facility] [place] [facility] [address] [id number] [place] [address] Aug, [facility] [place] [facility] [address] [id number] [place] [address] Aug, [facility] [place] [facility] [address] [id number] [place] [address] Jul, [facility] [place] [facility] [address] [id number] [place] [address] Jul, [facility] [place] [facility] [address] [id number] [place] [address] Jul, [facility] [place] [facility] [address] [id number] [place] [address] 15 Jul, 2013 [facility] [place] [facility] [address] [id number] [place] [address] 28 Jun, 2013 [facility] [place] [facility] [address] [id number] [place] [address] 28 Jun, 2013 [facility] [place] [facility] [address] [id number] [place] [address] 18 Jun, 2013 [facility] [place] [facility] [address] [id number] [place] [address] 18 Jun, 2013 [facility] [place] [facility] [address] [id number] [place] [address] 14 Jun, 2013 [facility] [place] [facility] [address] [id number] [place] [address] 14 Jun, 2013 [facility] [place] [facility] [address] [id number] [place] [address] 20 May, 2013 [facility] [place] [facility] [address] [id number] [place] [address] 18 May, 2013 [facility] [place] [facility] [address] [id number] [place] [address] May, [facility] [place] [facility] [address] [facility] [id number] [place] [address] Apr, [facility] [place] [facility] [address] [id number] [place] [address] Apr, [facility] [place] [facility] [address] [id number] [place] [address] Apr, [facility] [place] [facility] [address] [id number] [place] [address] Mar, [facility] [place] [facility] [address] [facility] [id number] [place] [address] Mar, [facility] [place] [facility] [address] [id number] [place] [address] Feb, [facility] [place] [facility] [address] [id number] [place] [address] Feb, [facility] [place] [facility] [address] [id number] [place] [address] Feb, [facility] [place] [facility] [address] [id number] [place] [address] January, [facility] [place] [facility] [address] [id number] [place] [address] January, [facility] [place] [facility] [address] [id number] [place] [address] January, [facility] [place] [facility] [address] [id number] [place] [address] 15 Dec, 2012 [facility] [place] [facility] [address] [id number] [place] [address] Dec, [facility] [place] [facility] [address] [id number] [place] [address] 08 Dec, 2012 [facility] [place] [facility] [address] [id number] [place] [address] Nov, [facility] [place] [facility] [address] [id number] [place] [address] 14 Nov, 2012 [facility] [place] [facility] [address] [id number] [place] [address] Nov, [facility] [place] [facility] [address] [id number] [place] [address] Oct, [facility] [place] [facility] [address] [id number] [place] [address] Oct, [facility] [place] [facility] [address] [id number] [place] [address] Sep, [facility] [place] [facility] [address] [id number] [place] [address] Sep, [facility] [place] [facility] [address] [id number] [place] [address] Sep, [facility] [place] [facility] [address] [id number] [place] [address] Aug, [facility] [place] [facility] [address] [id number] [place] [address] Aug, [facility] [place] [facility] [address] [id number] [place] [address] Aug, [facility] [place] [facility] [address] [id number] [place] [address] Aug, [facility] [place] [facility] [address] [id number] [place] [address] Aug, [facility] [place] [facility] [address] [id number] [place] [address] Jul, [facility] [place] [facility] [address] [id number] [place] [address] Jul, [facility] [place] [facility] [address] [id number] [place] [address] Jul, [facility] [place] [facility] [address] [id number] [place] [address] Jul, [facility] [place] [facility] [address] [id number] [place] [address] Jul, [facility] [place] [facility] [id number] [place] [address] Jul, [facility] [place] [facility] [address] [id number] [place] [address] Jun, [facility] [place] [facility] [address] [id number] [place] [address] Jun, [facility] [place] [facility] [address] [id number] [place] [address] Jun, [facility] [place] [facility] [address] [id number] [place] [address] Jun, [facility] [place] [facility] [address] [id number] [place] [address] May, [facility] [place] [facility] [address] [id number] [place] [address] 06 May, 2012 [facility] [place] [facility] [address] [id number] [place] [address] 16 Apr, 2012 [facility] [place] [facility] [address] [id number] [place] [address] 15 Apr, 2012 [facility] [place] [facility] [address] [id number] [place] [address] Apr, [facility] [place] [facility] [address] [id number] [place] [address] Mar, [facility] [place] [facility] [address] [id number] [place] [address] Mar, [facility] [place] [facility] [address] [id number] [place] [address] Feb, [facility] [place] [facility] [address] [id number] [place] [address] January, [facility] [place] [facility] [address] [id number] [place] [address] January, [facility] [place] [facility] [address] [id number] [place] [address] Dec, [facility] [place] [facility] [address] [id number] [place] [address] Dec, [facility] [place] [facility] [address] [id number] [place] [address] 05 Dec, 2011 [facility] [place] [facility] [address] [id number] [place] [address] Dec, [facility] [place] [facility] [address] [id number] [place] [address] 30 Nov, 2011 [facility] [place] [facility] [address] [id number] [place] [address] Nov, [facility] [place] [facility] [address] [id number] [place] [address] Nov, [facility] [place] [facility] [address] [id number] [facility] [place] [address] Nov, [facility] [place] [facility] [address] [id number] [place] [address] 14 Oct, 2011 [facility] [place] [facility] [address] [id number] [place] [address] Oct, [facility] [place] [facility] [address] [id number] [place] [address] Sep, [facility] [place] [facility] [address] [id number] [place] [address] Aug, [facility] [place] [facility] [address] [id number] [place] [address] Aug, [facility] [place] [facility] [address] [id number] [place] [address] Aug, [facility] [place] [facility] [address] [id number] [place] [address] Jul, [facility] [place] [facility] [address] [id number] [place] [address] Jul, [facility] [place] [facility] [address] [id number] [place] [address] Jul, [facility] [place] [facility] [address] [id number] [place] [address] 20 Jun, 2011 [facility] [place] [facility] [address] [id number] [place] [address] 14 Jun, 2011 [facility] [place] [facility] [id number] [place] [address] 13 Jun, 2011 [facility] [id number] [place] [address] 13 Jun, 2011 [facility] [id number] [place] [address] 19 May, 2011 [facility] [id number] [place] [address] January, [facility] [id number] [place] [address] 28 Aug, 2010 [facility] [id number] [place] [address] Aug, [facility] [address] [id number] [place] [address] Aug, [facility] [id number] [place] [address] Aug, [facility] [address] [id number] [place] [address] Jul, [facility] [id number] [place] [address] Jul, [facility] [id number] [place] [address] 15 Jun, 2010 [facility] [id number] [place] [address] 15 Jun, 2010 [facility] [id number] [place] [address] 16 May, 2010 [facility] [id number] [place] [address] 12 Jan, 2009 IMMUNIZATIONS No Known Immunizations [...]
--- OUTSIDE RECORDS SUMMARY | 2020-02-13 16:30 | XMS REPORT ---
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 9 Active 21022206 Problem COPD (chronic obstructive pulmonary disease) J44.9 Active 83603644 Problem Vitamin D deficiency E55.9 Active 91250780 ALLERGIES No Information ENCOUNTERS Encounter Location Date Diagnosis [place] [address] [address] Nov, [place] [address] [address] 20 Oct, 2019 Radiculopathy, lumbar region M54.16 [place] [address] [address] 19 Oct, 2019 [place] [address] [address] 11 Oct, 2019 Back pain M54.9 [place] [address] [address] 10 Oct, 2019 [place] [address] [address] 06 Oct, 2019 Skin sore L98.9 [place] [address] [address] Sep, Radiculopathy, lumbar region M54.16 [facility] [address] [address] 15 Sep, 2019 Back pain M54.9 [facility] [address] [address] Sep, Generalized anxiety disorder F41.1 [facility] [address] [address] Aug, Radiculopathy, lumbar region M54.16 [facility] [address] [address] Aug, Back pain M54.9 [facility] [address] [address] Aug, Lumbar radiculopathy M54.16 ; Generalize d anxiety disorder F41.1 and Drug-induced constipation K59.03 [facility] [address] [address] Jul, Radiculopathy, lumbar region M54.16 [facility] [address] [address] Jul, [facility] [address] [address] Jul, [facility] [address] [address] Jul, Back pain M54.9 [facility] [address] [address] Jul, Radiculopathy, lumbar region M54.16 [facility] [address] [address] Jul, Radiculopathy, lumbar region M54.16 [facility] [address] [address] Jun, Back pain M54.9 [facility] [address] [address] 09 Jun, 2019 [facility] [address] [address] Jun, Radiculopathy, lumbar region M54.16 [facility] [address] [address] 08 Jun, 2019 [facility] [address] [address] 30 May, 2019 Back pain M54.9 [facility] [address] [address] May, Cellulitis of other specified site L03.8 18 ; Dermatitis L30.9 and Lumbar radiculopathy M54.16 [facility] [address] [address] May, [facility] [address] [address] May, Back pain M54.9 [facility] [address] [address] 05 May, 2019 [facility] [address] [address] May, Back pain M54.9 [facility] [address] [address] Apr, [facility] [address] [address] Apr, Back pain M54.9 [facility] [address] [address] Apr, Hyponatremia E87.1 [place] [address] [address] Apr, Hyponatremia E87.1 [facility] [address] [address] Mar, Arthritis M19.90 ; Impacted cerumen of r ight ear H61.21 and Hypertension I10 [facility] [id number] [place] [id number] Mar, [facility] [address] [address] Mar, Back pain M54.9 [facility] [address] [address] Feb, Back pain M54.9 [facility] [address] [address] Feb, [facility] [address] [address] Feb, Dermatitis L30.9 [facility] [address] [address] January, Dermatitis L30.9 [facility] [address] [address] January, [facility] [address] [address] January, Back pain M54.9 [facility] [address] [address] Dec, [facility] [address] [address] Dec, Back pain M54.9 [facility] [address] [address] Dec, Lumbar radiculopathy M54.16 ; Arthritis M19.90 and Dyshydrosis L30.1 [facility] [address] [address] Nov, Back pain M54.9 [facility] [address] [address] Nov, [facility] [address] [address] Oct, [facility] [address] [address] Oct, Back pain M54.9 [facility] [address] [address] Oct, [facility] [address] [address] Oct, [facility] [address] [address] Sep, Back pain M54.9 [facility] [address] [address] Sep, [facility] [address] [address] Aug, Back pain M54.9 [facility] [address] [address] Aug, Encounter for immunization Z23 ; Arthrit is M19.90 and Generalized anxiety disorder F41.1 [facility] [address] [address] Aug, [facility] [address] [address] Aug, [facility] [address] [address] Jul, Back pain M54.9 [facility] [address] [address] Jul, [facility] [address] [address] Jul, [facility] [address] [address] Jun, Back pain M54.9 [facility] [address] [address] Jun, [facility] [address] [address] Jun, Back pain M54.9 [facility] [address] [address] May, Lumbar radiculopathy M54.16 ; Hypertensi on I10 and Generalized anxiety disorder F41.1 [facility] [address] [address] 06 May, 2018 Back pain M54.9 [facility] [address] [address] Apr, [facility] [address] [address] Apr, [facility] [address] [address] Apr, Back pain M54.9 [facility] [address] [address] Mar, Back pain M54.9 [facility] [address] [address] Feb, [facility] [address] [address] Feb, [facility] [address] [address] Feb, [facility] [address] [address] Feb, Back pain M54.9 [facility] [address] [address] Feb, Back pain M54.9 ; Hypertension I10 ; Gen eralized anxiety disorder F41.1 and Venous insufficiency I87.2 [facility] [address] [address] January, [facility] [address] [address] January, Back pain M54.9 [facility] [address] [address] Dec, [facility] [address] [address] Dec, Back pain M54.9 [facility] [address] [address] Nov, Back pain M54.9 [facility] [address] [address] Nov, [facility] [address] [address] Nov, Lumbar radiculopathy M54.16 ; Hypertensi on I10 ; Arthritis M19.90 and Back pain M54.9 [place] [address] [address] Oct, Back pain M54.9 [facility] [address] [address] Oct, [facility] [address] [address] Sep, Back pain M54.9 [facility] [address] [address] Sep, [facility] [address] [address] Aug, Back pain M54.9 [facility] [address] [address] Jul, Back pain M54.9 [facility] [address] [address] Jul, Encounter for immunization Z23 ; Back pa in M54.9 ; Hypertension I10 and Lumbar radiculopathy M54.16 [facility] [address] [address] Jul, Back pain M54.9 [facility] [address] [address] Jun, Vitamin D deficiency E55.9 [facility] [address] [address] 04 Jun, 2017 Back pain M54.9 [facility] [address] [address] 20 May, 2017 [facility] [address] [address] 08 May, 2017 [facility] [address] [address] 08 May, 2017 [facility] [address] [address] May, Back pain M54.9 [facility] [address] [address] 15 Apr, 2017 Back pain M54.9 ; Hypertension I10 ; Art hritis M19.90 and Generalized anxiety disorder F41.1 [facility] [address] [address] Apr, Back pain M54.9 [facility] [address] [address] Mar, Back pain M54.9 [facility] [address] [address] 10 Mar, 2017 Vitamin D deficiency E55.9 [facility] [address] [address] 15 Feb, 2017 Vitamin D deficiency E55.9 [facility] [address] [address] 14 Feb, 2017 Vitamin D deficiency E55.9 [facility] [address] [address] 13 Feb, 2017 Back pain M54.9 [facility] [address] [address] January, Back pain M54.9 [facility] [address] [address] January, Arthritis M19.90 [place] [address] [address] January, Vitamin D deficiency E55.9 and Arthritis M19.90 [facility] [address] [address] Dec, Medicare annual wellness visit, initial Z00.00 and Encounter for immunization Z23 [place] [address] [address] Dec, Back pain M54.9 [place] [address] [address] Nov, Back pain M54.9 [place] [address] [address] 24 Oct, 2016 Back pain M54.9 [place] [address] [address] 14 Oct, 2016 COPD (chronic obstructive pulmonary dise ase) J44.9 [place] [address] [address] Oct, [place] [address] [address] 02 Oct, 2016 Hypertension I10 ; Back pain M54.9 and E ncounter for immunization Z23 [place] [address] [address] Sep, [place] [address] [address] Sep, Back pain M54.9 [place] [address] [address] Sep, Back pain M54.9 [place] [address] [address] Aug, [place] [address] [address] Aug, Back pain M54.9 [facility] [address] [place] [id number] [place] [address] Aug, [facility] [address] [place] [id number] [place] [address] Aug, [facility] [address] [address] Aug, Back pain M54.9 [facility] [address] [address] Jul, [facility] [address] [address] Jul, Back pain M54.9 [facility] [address] [address] Jun, Back pain M54.9 ; Hypertension I10 ; Gen eralized anxiety disorder F41.1 and Encounter for immunization Z23 [facility] [address] [address] Jun, [facility] [address] [address] May, [facility] [address] [address] Apr, [facility] [address] [address] Apr, [facility] [address] [address] Mar, [facility] [address] [address] Mar, [facility] [address] [address] Mar, [facility] [address] [address] Feb, Back pain M54.9 and Hypertension I10 [facility] [address] [address] Feb, Back pain M54.9 [facility] [address] [id number] [place] [address] Dec, COPD (chronic obstructive pulmonary dise ase) J44.9 [facility] [address] [place] [id number] [place] [address] Dec, [facility] [address] [place] [id number] [place] [address] Dec, Back pain M54.9 [facility] [address] [place] [id number] [place] [address] Nov, Back pain M54.9 [facility] [address] [address] Nov, COPD (chronic obstructive pulmonary dise ase) J44.9 [facility] [address] [address] Nov, Hypertension I10 and Back pain M54.9 [facility] [address] [address] Oct, Hypertension I10 and Back pain M54.9 [facility] [address] [address] Oct, Back pain M54.9 [facility] [address] [place] [id number] [place] [address] Sep, Back pain M54.9 [facility] [address] [address] Sep, [facility] [address] [place] [id number] [place] [address] Sep, [facility] [address] [address] Sep, [facility] [address] [place] [id number] [place] [address] Sep, [facility] [address] [address] Aug, [facility] [address] [address] Aug, [facility] [address] [address] Aug, [facility] [address] [address] Aug, [facility] [address] [address] Aug, [facility] [address] [address] Jul, [facility] [address] [address] Jul, Back pain M54.9 ; Arthritis M19.90 ; Hyp ertension I10 and Encounter for immunization Z23 [facility] [address] [address] Jul, Generalized anxiety disorder F41.1 and D epressive disorder, not elsewhere classified F32.9 [facility] [address] [address] Jul, [facility] [address] [address] Jul, [facility] [address] [address] Jul, [facility] [address] [address] Jun, [facility] [address] [address] Jun, [facility] [address] [address] May, [facility] [address] [address] May, [facility] [address] [address] May, [facility] [address] [place] [id number] [place] [address] May, [facility] [address] [place] [id number] [place] [address] May, Benign essential hypertension 401.1 ; An xiety state, unspecified 300.00 ; Back pain 724.5 and Arthritis 716.90 [facility] [address] [place] [id number] [place] [address] May, [facility] [address] [place] [id number] [place] [address] Apr, [facility] [address] [address] Apr, [facility] [address] [place] [id number] [place] [address] Apr, [facility] [address] [place] [id number] [place] [address] Mar, [facility] [address] [place] [id number] [place] [address] Mar, [facility] [address] [place] [id number] [place] [address] Mar, [facility] [address] [address] Feb, High risk medication use V58.69 [facility] [address] [place] [id number] [place] [address] Feb, Benign essential hypertension 401.1 ; An xiety state, unspecified 300.00 and Chronic pain 338.29 [facility] [address] [place] [id number] [place] [address] Feb, [facility] [address] [address] January, [facility] [address] [place] [id number] [place] [address] January, [facility] [address] [address] January, [facility] [address] [id number] [place] [address] January, [facility] [address] [id number] [facility] [place] [address] Dec, [facility] [address] [id number] [facility] [place] [address] Dec, [facility] [address] [id number] [facility] [place] [address] Nov, [facility] [address] [facility] [id number] [facility] [place] [address] Nov, [facility] [address] [id number] [place] [address] Nov, [facility] [address] [id number] [place] [address] Nov, [facility] [address] [id number] [facility] [place] [address] Oct, [facility] [address] [id number] [facility] [place] [address] Oct, [facility] [address] [id number] [place] [address] Oct, [facility] [address] [id number] [place] [address] Oct, [facility] [address] [id number] [place] [address] Oct, [facility] [address] [id number] [facility] [place] [address] Sep, [facility] [address] [id number] [place] [address] Sep, [facility] [address] [id number] [place] [address] Sep, [facility] [address] [id number] [place] [address] Sep, [facility] [address] [id number] [place] [address] Aug, [facility] [address] [id number] [place] [address] Aug, [facility] [address] [id number] [place] [address] Aug, [facility] [address] [id number] [place] [address] Aug, [facility] [address] [id number] [place] [address] Aug, [facility] [address] [id number] [place] [address] Aug, [facility] [address] [id number] [place] [address] Jul, [facility] [address] [id number] [place] [address] Jul, [facility] [address] [id number] [place] [address] Jun, [facility] [address] [id number] [place] [address] Jun, [facility] [address] [id number] [place] [address] Jun, [facility] [address] [id number] [place] [address] Jun, [facility] [address] [id number] [place] [address] May, [facility] [address] [id number] [place] [address] May, [facility] [id number] [place] [address] May, [facility] [address] [id number] [place] [address] May, [facility] [address] [id number] [place] [address] Apr, [facility] [address] [facility] [id number] [place] [address] Apr, [facility] [address] [facility] [id number] [place] [address] Apr, [facility] [address] [id number] [place] [address] Apr, [facility] [address] [id number] [place] [address] Apr, [facility] [address] [facility] [id number] [place] [address] Apr, [facility] [address] [id number] [place] [address] Mar, [facility] [address] [id number] [place] [address] Mar, [facility] [address] [id number] [place] [address] Mar, [facility] [address] [id number] [place] [address] Mar, [facility] [address] [id number] [place] [address] Feb, [facility] [address] [id number] [place] [address] Feb, [facility] [address] [id number] [place] [address] Feb, [facility] [address] [id number] [place] [address] January, [facility] [address] [id number] [place] [address] January, [facility] [address] [id number] [place] [address] January, [facility] [address] [id number] [place] [address] January, [facility] [address] [id number] [place] [address] January, [facility] [address] [facility] [id number] [facility] [place] [address] January, [facility] [address] [facility] [id number] [place] [address] January, [facility] [address] [id number] [facility] [place] [address] January, [facility] [address] [id number] [facility] [place] [address] Dec, [facility] [address] [facility] [id number] [facility] [place] [address] Dec, [facility] [address] [id number] [place] [address] Dec, [facility] [address] [id number] [place] [address] Dec, [facility] [address] [id number] [place] [address] Dec, [facility] [address] [id number] [place] [address] Dec, [facility] [address] [id number] [place] [address] Dec, [facility] [address] [id number] [place] [address] Nov, [facility] [address] [id number] [place] [address] Nov, [facility] [address] [facility] [id number] [place] [address] Nov, [facility] [address] [id number] [place] [address] Nov, [facility] [address] [id number] [place] [address] Nov, [facility] [address] [id number] [place] [address] Nov, [facility] [address] [id number] [place] [address] 11 Nov, 2013 [facility] [address] [id number] [place] [address] 11 Nov, 2013 [facility] [address] [id number] [place] [address] 07 Nov, 2013 [facility] [address] [id number] [place] [address] 07 Nov, 2013 [facility] [address] [id number] [place] [address] 07 Nov, 2013 [facility] [address] [id number] [place] [address] 07 Nov, 2013 [facility] [place] [facility] [address] [id number] [place] [address] 07 Oct, 2013 [facility] [place] [facility] [address] [id number] [place] [address] 07 Oct, 2013 [facility] [place] [facility] [address] [id number] [place] [address] Sep, [facility] [place] [facility] [address] [id number] [place] [address] Sep, [facility] [place] [facility] [address] [id number] [place] [address] Sep, [facility] [place] [facility] [address] [id number] [place] [address] Sep, [facility] [place] [facility] [address] [id number] [place] [address] Aug, [facility] [place] [facility] [address] [id number] [place] [address] Aug, [facility] [place] [facility] [address] [id number] [place] [address] 15 Jul, 2013 [facility] [place] [facility] [address] [id number] [place] [address] 15 Jul, 2013 [facility] [place] [facility] [address] [id number] [place] [address] 15 Jul, 2013 [facility] [place] [facility] [address] [id number] [place] [address] 15 Jul, 2013 [facility] [place] [facility] [address] [id number] [place] [address] Jun, [facility] [place] [facility] [address] [id number] [place] [address] Jun, [facility] [place] [facility] [address] [id number] [place] [address] Jun, [facility] [place] [facility] [address] [facility] [id number] [place] [address] 18 Jun, 2013 [facility] [place] [facility] [address] [id number] [place] [address] 14 Jun, 2013 [facility] [place] [facility] [address] [id number] [place] [address] 14 Jun, 2013 [facility] [place] [facility] [address] [id number] [place] [address] 20 May, 2013 [facility] [place] [facility] [address] [id number] [place] [address] 18 May, 2013 [facility] [place] [facility] [address] [id number] [place] [address] May, [facility] [place] [facility] [address] [id number] [place] [address] Apr, [facility] [place] [facility] [address] [id number] [place] [address] Apr, [facility] [place] [facility] [address] [id number] [place] [address] Apr, [facility] [place] [facility] [address] [id number] [place] [address] Mar, [facility] [place] [facility] [address] [id number] [place] [address] Mar, [facility] [place] [facility] [address] [id number] [place] [address] Feb, [facility] [place] [facility] [address] [id number] [place] [address] Feb, [facility] [place] [facility] [address] [facility] [id number] [place] [address] Feb, [facility] [place] [facility] [address] [id number] [place] [address] January, [facility] [place] [facility] [address] [id number] [place] [address] January, [facility] [place] [facility] [address] [id number] [place] [address] January, [facility] [place] [facility] [address] [id number] [place] [address] Dec, [facility] [place] [facility] [address] [id number] [place] [address] Dec, [facility] [place] [facility] [address] [id number] [place] [address] Dec, [facility] [place] [facility] [address] [id number] [place] [address] Nov, [facility] [place] [facility] [address] [id number] [place] [address] Nov, [facility] [place] [facility] [address] [id number] [place] [address] Nov, [facility] [place] [facility] [address] [id number] [place] [address] 18 Oct, 2012 [facility] [place] [facility] [address] [id number] [place] [address] 14 Oct, 2012 [facility] [place] [facility] [address] [id number] [place] [address] Sep, [facility] [place] [facility] [address] [id number] [place] [address] Sep, [facility] [place] [facility] [address] [id number] [place] [address] Sep, [facility] [place] [facility] [address] [id number] [place] [address] Aug, [facility] [place] [facility] [address] [id number] [place] [address] Aug, [facility] [place] [facility] [address] [id number] [place] [address] Aug, [facility] [place] [facility] [address] [id number] [place] [address] Aug, [facility] [place] [facility] [id number] [place] [address] Aug, [facility] [place] [facility] [address] [id number] [place] [address] Jul, [facility] [place] [facility] [address] [id number] [place] [address] Jul, [facility] [place] [facility] [address] [id number] [place] [address] Jul, [facility] [place] [facility] [id number] [place] [address] Jul, [facility] [place] [facility] [id number] [place] [address] Jul, [facility] [place] [facility] [address] [id number] [place] [address] Jul, [facility] [place] [facility] [id number] [place] [address] Jun, [facility] [place] [facility] [address] [id number] [place] [address] Jun, [facility] [place] [facility] [address] [id number] [place] [address] Jun, [facility] [place] [facility] [address] [id number] [place] [address] Jun, [facility] [place] [facility] [id number] [place] [address] May, [facility] [place] [facility] [address] [id number] [place] [address] 06 May, 2012 [facility] [place] [facility] [address] [id number] [place] [address] 16 Apr, 2012 [facility] [place] [facility] [address] [facility] [id number] [place] [address] Apr, [facility] [place] [facility] [address] [id number] [place] [address] Apr, [facility] [place] [facility] [address] [id number] [place] [address] 17 Mar, 2012 [facility] [place] [facility] [address] [id number] [place] [address] Mar, [facility] [place] [facility] [address] [facility] [id number] [place] [address] Feb, [facility] [place] [facility] [address] [id number] [place] [address] January, [facility] [place] [facility] [address] [id number] [place] [address] January, [facility] [place] [facility] [address] [id number] [place] [address] Dec, [facility] [place] [facility] [address] [id number] [place] [address] Dec, [facility] [place] [facility] [address] [id number] [place] [address] Dec, [facility] [place] [facility] [address] [id number] [place] [address] Dec, [facility] [place] [facility] [address] [id number] [place] [address] Nov, [facility] [place] [facility] [address] [id number] [place] [address] Nov, [facility] [place] [facility] [address] [id number] [place] [address] Nov, [facility] [place] [facility] [address] [id number] [place] [address] Nov, [facility] [place] [facility] [address] [id number] [place] [address] Oct, [facility] [place] [facility] [address] [id number] [place] [address] 09 Oct, 2011 [facility] [place] [facility] [address] [id number] [place] [address] Sep, [facility] [place] [facility] [address] [id number] [place] [address] 30 Aug, 2011 [facility] [place] [facility] [id number] [place] [address] Aug, [facility] [place] [facility] [address] [id number] [place] [address] Aug, [facility] [place] [facility] [address] [id number] [place] [address] Jul, [facility] [place] [facility] [address] [id number] [place] [address] Jul, [facility] [place] [facility] [id number] [place] [address] Jul, [facility] [place] [facility] [id number] [place] [address] 20 Jun, 2011 [facility] [place] [facility] [address] [id number] [place] [address] 14 Jun, 2011 [facility] [place] [facility] [id number] [place] [address] 13 Jun, 2011 [facility] [place] [facility] [id number] [place] [address] 13 Jun, 2011 [facility] [place] [facility] [address] [id number] [place] [address] May, [facility] [place] [facility] [address] [id number] [place] [address] January, [facility] [place] [facility] [id number] [place] [address] 28 Aug, 2010 [facility] [place] [facility] [address] [id number] [place] [address] Aug, [facility] [place] [facility] [address] [id number] [place] [address] 10 Aug, 2010 [facility] [address] [id number] [place] [address] Aug, [facility] [address] [id number] [place] [address] Jul, [facility] [address] [id number] [place] [address] Jul, [facility] [address] [id number] [place] [address] 15 Jun, 2010 [facility] [id number] [place] [address] Jun, [facility] [address] [id number] [place] [address] 16 May, 2010 [facility] [address] [id number] [place] [address] January, IMMUNIZATIONS No Known Immunizations SOCIAL HISTORY [...]
--- OUTSIDE RECORDS SUMMARY | 2020-02-13 16:30 | XMS REPORT ---
Author Author Cami GLEZ Organization [facility] Address [address] [place] [address] Care Team Providers Care Protective Signal Operator Name Role Phone DON GLEZ Unavailable PROBLEMS Type Condition ICD9-CM Code [id number] Code Onset Dates Condition S tatus SNOMED Code Problem Arthritis M19.90 Active 0949970 Problem Back pain M54.9 Active 998696379 Problem Hypertension I10 Active 6725626 3 Problem Lumbar radiculopathy M54.16 Active 493429222 Problem Venous insufficiency I87.2 Active 54589934 Problem Generalized anxiety disorder F41.1 A ctive 29454910 Problem Depressive disorder, not elsewhere classified F32. 9 Active 98681880 Problem COPD (chronic obstructive pulmonary disease) J44.9 Active 13860843 Problem Vitamin D deficiency E55.9 Active 94314056 ALLERGIES No Information ENCOUNTERS Encounter Location Date Diagnosis [place] [address] [address] Nov, [place] [address] [address] 20 Oct, 2019 Radiculopathy, lumbar region M54.16 [place] [address] [address] 19 Oct, 2019 [place] [address] [address] 11 Oct, 2019 Back pain M54.9 [place] [address] [address] 10 Oct, 2019 [place] [address] [address] 06 Oct, 2019 Skin sore L98.9 [place] [address] [address] Sep, Radiculopathy, lumbar region M54.16 [facility] [address] [address] 15 Sep, 2019 Back pain M54.9 [facility] [address] [address] Sep, Generalized anxiety disorder F41.1 [facility] [address] [address] Aug, Radiculopathy, lumbar region M54.16 [facility] [address] [address] Aug, Back pain M54.9 [facility] [address] [address] Aug, Lumbar radiculopathy M54.16 ; Generalize d anxiety disorder F41.1 and Drug-induced constipation K59.03 [facility] [address] [address] Jul, Radiculopathy, lumbar region M54.16 [facility] [address] [address] Jul, [facility] [address] [address] Jul, [facility] [address] [address] Jul, Back pain M54.9 [facility] [address] [address] Jul, Radiculopathy, lumbar region M54.16 [facility] [address] [address] Jul, Radiculopathy, lumbar region M54.16 [facility] [address] [address] Jun, Back pain M54.9 [facility] [address] [address] 09 Jun, 2019 [facility] [address] [address] Jun, Radiculopathy, lumbar region M54.16 [facility] [address] [address] 08 Jun, 2019 [facility] [address] [address] 30 May, 2019 Back pain M54.9 [facility] [address] [address] May, Cellulitis of other specified site L03.8 18 ; Dermatitis L30.9 and Lumbar radiculopathy M54.16 [facility] [address] [address] May, [facility] [address] [address] May, Back pain M54.9 [facility] [address] [address] 05 May, 2019 [facility] [address] [address] May, Back pain M54.9 [facility] [address] [address] Apr, [facility] [address] [address] Apr, Back pain M54.9 [facility] [address] [address] Apr, Hyponatremia E87.1 [place] [address] [address] Apr, Hyponatremia E87.1 [facility] [address] [address] Mar, Arthritis M19.90 ; Impacted cerumen of r ight ear H61.21 and Hypertension I10 [facility] [address] [id number] [place] [id number] Mar, [facility] [address] [address] Mar, Back pain M54.9 [facility] [address] [address] Feb, Back pain M54.9 [facility] [address] [address] Feb, [facility] [address] [address] Feb, Dermatitis L30.9 [facility] [address] [address] January, Dermatitis L30.9 [facility] [address] [address] January, [facility] [address] [address] January, Back pain M54.9 [facility] [address] [address] Dec, [facility] [address] [address] Dec, Back pain M54.9 [facility] [address] [address] Dec, Lumbar radiculopathy M54.16 ; Arthritis M19.90 and Dyshydrosis L30.1 [facility] [address] [address] Nov, Back pain M54.9 [facility] [address] [address] Nov, [facility] [address] [address] Oct, [facility] [address] [address] Oct, Back pain M54.9 [facility] [address] [address] Oct, [facility] [address] [address] Oct, [facility] [address] [address] Sep, Back pain M54.9 [facility] [address] [address] Sep, [facility] [address] [address] Aug, Back pain M54.9 [facility] [address] [address] Aug, Encounter for immunization Z23 ; Arthrit is M19.90 and Generalized anxiety disorder F41.1 [facility] [address] [address] Aug, [facility] [address] [address] Aug, [facility] [address] [address] Jul, Back pain M54.9 [facility] [address] [address] Jul, [facility] [address] [address] Jul, [facility] [address] [address] Jun, Back pain M54.9 [facility] [address] [address] Jun, [facility] [address] [address] Jun, Back pain M54.9 [facility] [address] [address] May, Lumbar radiculopathy M54.16 ; Hypertensi on I10 and Generalized anxiety disorder F41.1 [facility] [address] [address] 06 May, 2018 Back pain M54.9 [facility] [address] [address] Apr, [facility] [address] [address] Apr, [facility] [address] [address] Apr, Back pain M54.9 [facility] [address] [address] Mar, Back pain M54.9 [facility] [address] [address] Feb, [facility] [address] [address] Feb, [facility] [address] [address] Feb, [facility] [address] [address] Feb, Back pain M54.9 [facility] [address] [address] Feb, Back pain M54.9 ; Hypertension I10 ; Gen eralized anxiety disorder F41.1 and Venous insufficiency I87.2 [facility] [address] [address] January, [facility] [address] [address] January, Back pain M54.9 [facility] [address] [address] Dec, [facility] [address] [address] Dec, Back pain M54.9 [facility] [address] [address] Nov, Back pain M54.9 [facility] [address] [address] Nov, [facility] [address] [address] Nov, Lumbar radiculopathy M54.16 ; Hypertensi on I10 ; Arthritis M19.90 and Back pain M54.9 [place] [address] [address] Oct, Back pain M54.9 [facility] [address] [address] Oct, [facility] [address] [address] Sep, Back pain M54.9 [facility] [address] [address] Sep, [facility] [address] [address] Aug, Back pain M54.9 [facility] [address] [address] Jul, Back pain M54.9 [facility] [address] [address] Jul, Encounter for immunization Z23 ; Back pa in M54.9 ; Hypertension I10 and Lumbar radiculopathy M54.16 [facility] [address] [address] Jul, Back pain M54.9 [facility] [address] [address] Jun, Vitamin D deficiency E55.9 [facility] [address] [address] 04 Jun, 2017 Back pain M54.9 [facility] [address] [address] 20 May, 2017 [facility] [address] [address] 08 May, 2017 [facility] [address] [address] 08 May, 2017 [facility] [address] [address] May, Back pain M54.9 [facility] [address] [address] 15 Apr, 2017 Back pain M54.9 ; Hypertension I10 ; Art hritis M19.90 and Generalized anxiety disorder F41.1 [facility] [address] [address] Apr, Back pain M54.9 [facility] [address] [address] Mar, Back pain M54.9 [facility] [address] [address] 10 Mar, 2017 Vitamin D deficiency E55.9 [facility] [address] [address] 15 Feb, 2017 Vitamin D deficiency E55.9 [facility] [address] [address] 14 Feb, 2017 Vitamin D deficiency E55.9 [facility] [address] [address] 13 Feb, 2017 Back pain M54.9 [facility] [address] [address] January, Back pain M54.9 [facility] [address] [address] January, Arthritis M19.90 [place] [address] [address] January, Vitamin D deficiency E55.9 and Arthritis M19.90 [facility] [address] [address] Dec, Medicare annual wellness visit, initial Z00.00 and Encounter for immunization Z23 [place] [address] [address] Dec, Back pain M54.9 [place] [address] [address] Nov, Back pain M54.9 [place] [address] [address] 24 Oct, 2016 Back pain M54.9 [place] [address] [address] 14 Oct, 2016 COPD (chronic obstructive pulmonary dise ase) J44.9 [place] [address] [address] Oct, [place] [address] [address] 02 Oct, 2016 Hypertension I10 ; Back pain M54.9 and E ncounter for immunization Z23 [place] [address] [address] Sep, [place] [address] [address] Sep, Back pain M54.9 [place] [address] [address] Sep, Back pain M54.9 [place] [address] [address] Aug, [place] [address] [address] Aug, Back pain M54.9 [facility] [address] [place] [address] [place] [address] Aug, [facility] [address] [place] [address] [place] [address] Aug, [facility] [address] [address] Aug, Back pain M54.9 [facility] [address] [address] Jul, [facility] [address] [address] Jul, Back pain M54.9 [facility] [address] [address] Jun, Back pain M54.9 ; Hypertension I10 ; Gen eralized anxiety disorder F41.1 and Encounter for immunization Z23 [facility] [address] [address] Jun, [facility] [address] [address] May, [facility] [address] [address] Apr, [facility] [address] [address] Apr, [facility] [address] [address] Mar, [facility] [address] [address] Mar, [facility] [address] [address] Mar, [facility] [address] [address] Feb, Back pain M54.9 and Hypertension I10 [facility] [address] [address] Feb, Back pain M54.9 [facility] [address] [id number] [place] [address] Dec, COPD (chronic obstructive pulmonary dise ase) J44.9 [facility] [address] [place] [id number] [place] [address] Dec, [facility] [address] [place] [id number] [place] [address] Dec, Back pain M54.9 [facility] [address] [place] [id number] [place] [address] Nov, Back pain M54.9 [facility] [address] [address] Nov, COPD (chronic obstructive pulmonary dise ase) J44.9 [facility] [address] [address] Nov, Hypertension I10 and Back pain M54.9 [facility] [address] [address] Oct, Hypertension I10 and Back pain M54.9 [facility] [address] [address] Oct, Back pain M54.9 [facility] [address] [place] [id number] [place] [address] Sep, Back pain M54.9 [facility] [address] [address] Sep, [facility] [address] [place] [id number] [place] [address] Sep, [facility] [address] [address] Sep, [facility] [address] [place] [id number] [place] [address] Sep, [facility] [address] [address] Aug, [facility] [address] [address] Aug, [facility] [address] [address] Aug, [facility] [address] [address] Aug, [facility] [address] [address] Aug, [facility] [address] [address] Jul, [facility] [address] [address] Jul, Back pain M54.9 ; Arthritis M19.90 ; Hyp ertension I10 and Encounter for immunization Z23 [facility] [address] [address] Jul, Generalized anxiety disorder F41.1 and D epressive disorder, not elsewhere classified F32.9 [facility] [address] [address] Jul, [facility] [address] [address] Jul, [facility] [address] [address] Jul, [facility] [address] [address] Jun, [facility] [address] [address] Jun, [facility] [address] [address] May, [facility] [address] [address] May, [facility] [address] [address] May, [facility] [address] [place] [id number] [place] [address] May, [facility] [address] [place] [address] [place] [address] May, Benign essential hypertension 401.1 ; An xiety state, unspecified 300.00 ; Back pain 724.5 and Arthritis 716.90 [facility] [address] [place] [address] [place] [address] May, [facility] [address] [place] [address] [place] [address] Apr, [facility] [address] [address] Apr, [facility] [address] [place] [address] [place] [address] Apr, [facility] [address] [place] [address] [place] [address] Mar, [facility] [address] [place] [address] [place] [address] Mar, [facility] [address] [place] [id number] [place] [address] Mar, [facility] [address] [address] Feb, High risk medication use V58.69 [facility] [address] [place] [address] [place] [address] Feb, Benign essential hypertension 401.1 ; An xiety state, unspecified 300.00 and Chronic pain 338.29 [facility] [address] [place] [address] [place] [address] Feb, [facility] [address] [address] January, [facility] [address] [place] [address] [place] [address] January, [facility] [address] [address] January, [facility] [address] [id number] [place] [address] January, [facility] [address] [id number] [place] [address] Dec, [facility] [address] [id number] [place] [address] Dec, [facility] [address] [id number] [place] [address] Nov, [facility] [address] [facility] [id number] [facility] [address] Nov, [facility] [address] [id number] [place] [address] Nov, [facility] [address] [id number] [place] [address] Nov, [facility] [address] [id number] [place] [address] Oct, [facility] [address] [id number] [place] [address] Oct, [facility] [address] [id number] [place] [address] Oct, [facility] [address] [id number] [place] [address] Oct, [facility] [address] [id number] [place] [address] Oct, [facility] [address] [id number] [place] [address] Sep, [facility] [address] [id number] [place] [address] Sep, [facility] [address] [id number] [place] [address] Sep, [facility] [address] [id number] [place] [address] Sep, [facility] [address] [id number] [place] [address] Aug, [facility] [address] [id number] [place] [address] Aug, [facility] [address] [id number] [place] [address] Aug, [facility] [address] [id number] [place] [address] Aug, [facility] [address] [id number] [place] [address] Aug, [facility] [address] [id number] [place] [address] Aug, [facility] [address] [id number] [place] [address] Jul, [facility] [address] [id number] [place] [address] Jul, [facility] [address] [id number] [place] [address] Jun, [facility] [address] [id number] [place] [address] Jun, [facility] [address] [id number] [place] [address] Jun, [facility] [address] [id number] [place] [address] Jun, [facility] [address] [id number] [place] [address] May, [facility] [address] [id number] [place] [address] May, [facility] [address] [place] [id number] [place] [address] May, [facility] [address] [id number] [place] [address] May, [facility] [address] [id number] [place] [address] Apr, [facility] [address] [facility] [address] [id number] [place] [address] Apr, [facility] [address] [facility] 2001 [id number] [place] [address] Apr, [facility] [address] [id number] [place] [address] Apr, [facility] [address] [id number] [place] [address] Apr, [facility] [address] [facility] 2001 [id number] [place] [address] Apr, [facility] [address] [id number] [place] [address] Mar, [facility] [address] [id number] [place] [address] Mar, [facility] [address] [id number] [place] [address] Mar, [facility] [address] [id number] [place] [address] Mar, [facility] [address] [id number] [place] [address] Feb, [facility] [address] [id number] [place] [address] Feb, [facility] [address] [id number] [place] [address] Feb, [facility] [address] [id number] [place] [address] January, [facility] [address] [id number] [place] [address] January, [facility] [address] [id number] [place] [address] January, [facility] [address] [id number] [place] [address] January, [facility] [address] [id number] [place] [address] January, [facility] [address] [facility] [address] [id number] [place] [address] January, [facility] [address] [facility] [address] [id number] [place] [address] January, [facility] [address] [id number] [place] [address] January, [facility] [address] [id number] [place] [address] Dec, [facility] [address] [id number] [facility] [place] [address] Dec, [facility] [address] [id number] [place] [address] Dec, [facility] [address] [id number] [place] [address] Dec, [facility] [address] [id number] [place] [address] Dec, [facility] [address] [id number] [place] [address] Dec, [facility] [address] [id number] [place] [address] Dec, [facility] [address] [id number] [place] [address] Nov, [facility] [address] [id number] [place] [address] Nov, [facility] [address] [facility] [id number] [place] [address] Nov, [facility] [address] [id number] [place] [address] Nov, [facility] [address] [id number] [place] [address] Nov, [facility] [address] [id number] [place] [address] Nov, [facility] [address] [id number] [place] [address] 11 Nov, 2013 [facility] [address] [id number] [place] [address] 11 Nov, 2013 [facility] [address] [id number] [place] [address] 07 Nov, 2013 [facility] [address] [id number] [place] [address] 07 Nov, 2013 [facility] [address] [id number] [place] [address] 07 Nov, 2013 [facility] [address] [id number] [place] [address] 07 Nov, 2013 [facility] [address] [id number] [place] [address] 07 Oct, 2013 [facility] [address] [id number] [place] [address] 07 Oct, 2013 [facility] [address] [id number] [place] [address] Sep, [facility] [address] [id number] [place] [address] Sep, [facility] [address] [id number] [place] [address] Sep, [facility] [address] [id number] [place] [address] Sep, [facility] [address] [id number] [place] [address] Aug, [facility] [address] [id number] [place] [address] Aug, [facility] [address] [id number] [place] [address] 15 Jul, 2013 [facility] [address] [id number] [place] [address] 15 Jul, 2013 [facility] [address] [id number] [place] [address] 15 Jul, 2013 [facility] [address] [id number] [place] [address] 15 Jul, 2013 [facility] [address] [id number] [place] [address] Jun, [facility] [address] [id number] [place] [address] Jun, [facility] [address] [id number] [place] [address] Jun, [facility] [place] [facility] [address] 2001 [id number] [place] [address] 18 Jun, 2013 [facility] [place] [facility] [address] [id number] [place] [address] 14 Jun, 2013 [facility] [place] [facility] [address] [id number] [place] [address] 14 Jun, 2013 [facility] [place] [facility] [address] [id number] [place] [address] 20 May, 2013 [facility] [place] [facility] [address] [id number] [place] [address] 18 May, 2013 [facility] [place] [facility] [address] [id number] [place] [address] May, [facility] [place] [facility] [address] [id number] [place] [address] Apr, [facility] [place] [facility] [address] [id number] [place] [address] Apr, [facility] [place] [facility] [address] [id number] [place] [address] Apr, [facility] [place] [facility] [address] [id number] [place] [address] Mar, [facility] [place] [facility] [address] [id number] [place] [address] Mar, [facility] [place] [facility] [address] [id number] [place] [address] Feb, [facility] [place] [facility] [address] [id number] [place] [address] Feb, [facility] [place] [facility] [address] [id number] [place] [address] Feb, [facility] [place] [facility] [address] [id number] [place] [address] January, [facility] [place] [facility] [address] [id number] [place] [address] January, [facility] [place] [facility] [address] [id number] [place] [address] January, [facility] [place] [facility] [address] [id number] [place] [address] Dec, [facility] [place] [facility] [address] [id number] [place] [address] Dec, [facility] [place] [facility] [address] [id number] [place] [address] Dec, [facility] [place] [facility] [address] [id number] [place] [address] Nov, [facility] [place] [facility] [address] [id number] [place] [address] Nov, [facility] [place] [facility] [address] [id number] [place] [address] Nov, [facility] [place] [facility] [address] [id number] [place] [address] 18 Oct, 2012 [facility] [place] [facility] [address] [id number] [place] [address] 14 Oct, 2012 [facility] [place] [facility] [address] [id number] [place] [address] Sep, [facility] [place] [facility] [address] [id number] [place] [address] Sep, [facility] [place] [facility] [address] [id number] [place] [address] Sep, [facility] [place] [facility] [address] [id number] [place] [address] Aug, [facility] [place] [facility] [address] [id number] [place] [address] Aug, [facility] [place] [facility] [address] [id number] [place] [address] Aug, [facility] [place] [facility] [address] [id number] [place] [address] Aug, [facility] [place] [facility] [id number] [place] [address] Aug, [facility] [place] [facility] [address] [id number] [place] [address] Jul, [facility] [place] [facility] [address] [id number] [place] [address] Jul, [facility] [place] [facility] [address] [id number] [place] [address] Jul, [facility] [place] [facility] [id number] [place] [address] Jul, [facility] [place] [facility] [id number] [place] [address] Jul, [facility] [place] [facility] [address] [id number] [place] [address] Jul, [facility] [place] [facility] [id number] [place] [address] Jun, [facility] [place] [facility] [address] [id number] [place] [address] Jun, [facility] [place] [facility] [address] [id number] [place] [address] Jun, [facility] [place] [facility] [address] [id number] [place] [address] Jun, [facility] [place] [facility] [id number] [place] [address] May, [facility] [place] [facility] [address] [id number] [place] [address] 06 May, 2012 [facility] [place] [facility] [address] [id number] [place] [address] 16 Apr, 2012 [facility] [place] [facility] [address] 2001 [id number] [place] [address] Apr, [facility] [place] [facility] [address] [id number] [place] [address] Apr, [facility] [place] [facility] [address] [id number] [place] [address] 17 Mar, 2012 [facility] [place] [facility] [address] [id number] [place] [address] Mar, [facility] [place] [facility] [address] 2001 [id number] [place] [address] Feb, [facility] [place] [facility] [address] [id number] [place] [address] January, [facility] [place] [facility] [address] [id number] [place] [address] January, [facility] [place] [facility] [address] [id number] [place] [address] Dec, [facility] [place] [facility] [address] [id number] [place] [address] Dec, [facility] [place] [facility] [address] [id number] [place] [address] Dec, [facility] [place] [facility] [address] [id number] [place] [address] Dec, [facility] [place] [facility] [address] [id number] [place] [address] Nov, [facility] [place] [facility] [address] [id number] [place] [address] Nov, [facility] [place] [facility] [address] [id number] [place] [address] Nov, [facility] [place] [facility] [address] [id number] [place] [address] Nov, [facility] [place] [facility] [address] [id number] [place] [address] Oct, [facility] [place] [facility] [address] [id number] [place] [address] 09 Oct, 2011 [facility] [place] [facility] [address] [id number] [place] [address] Sep, [facility] [place] [facility] [address] [id number] [place] [address] 30 Aug, 2011 [facility] [place] [facility] [id number] [place] [address] Aug, [facility] [place] [facility] [address] [id number] [place] [address] Aug, [facility] [place] [facility] [address] [id number] [place] [address] Jul, [facility] [place] [facility] [address] [id number] [place] [address] Jul, [facility] [place] [facility] [id number] [place] [address] Jul, [facility] [place] [facility] [id number] [place] [address] 20 Jun, 2011 [facility] [place] [facility] [address] [id number] [place] [address] 14 Jun, 2011 [facility] [place] [facility] [id number] [place] [address] 13 Jun, 2011 [facility] [place] [facility] [id number] [place] [address] 13 Jun, 2011 [facility] [place] [facility] [address] [id number] [place] [address] May, [facility] [place] [facility] [address] [id number] [place] [address] January, [facility] [place] [facility] [id number] [place] [address] 28 Aug, 2010 [facility] [place] [facility] [address] [id number] [place] [address] Aug, [facility] [place] [facility] [address] [id number] [place] [address] 10 Aug, 2010 [facility] [address] [id number] [place] [address] Aug, [facility] [address] [id number] [place] [address] Jul, [facility] [address] [id number] [place] [address] Jul, [facility] [address] [id number] [place] [address] 15 Jun, 2010 [facility] [id number] [place] [address] Jun, [facility] [address] [id number] [place] [address] 16 May, 2010 [facility] [address] [id number] [place] [address] January, IMMUNIZATIONS No Known Immunizations SOCIAL HISTORY [...]
--- OUTSIDE RECORDS SUMMARY | 2020-02-13 16:31 | XMS REPORT ---
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 9 Active 95795406 Problem COPD (chronic obstructive pulmonary disease) J44.9 Active 93501696 Problem Vitamin D deficiency E55.9 Active 20793682 ALLERGIES No Information ENCOUNTERS Encounter Location Date Diagnosis [place] [address] [address] Nov, [place] [address] [address] 20 Oct, 2019 Radiculopathy, lumbar region M54.16 [place] [address] [address] 19 Oct, 2019 [place] [address] [address] 11 Oct, 2019 Back pain M54.9 [place] [address] [address] 10 Oct, 2019 [place] [address] [address] 06 Oct, 2019 Skin sore L98.9 [place] [address] [address] Sep, Radiculopathy, lumbar region M54.16 [facility] [address] [address] 15 Sep, 2019 Back pain M54.9 [facility] [address] [address] Sep, Generalized anxiety disorder F41.1 [facility] [address] [address] Aug, Radiculopathy, lumbar region M54.16 [facility] [address] [address] Aug, Back pain M54.9 [facility] [address] [address] Aug, Lumbar radiculopathy M54.16 ; Generalize d anxiety disorder F41.1 and Drug-induced constipation K59.03 [facility] [address] [address] Jul, Radiculopathy, lumbar region M54.16 [facility] [address] [address] Jul, [facility] [address] [address] Jul, [facility] [address] [address] Jul, Back pain M54.9 [facility] [address] [address] Jul, Radiculopathy, lumbar region M54.16 [facility] [address] [address] Jul, Radiculopathy, lumbar region M54.16 [facility] [address] [address] Jun, Back pain M54.9 [facility] [address] [address] 09 Jun, 2019 [facility] [address] [address] Jun, Radiculopathy, lumbar region M54.16 [facility] [address] [address] 08 Jun, 2019 [facility] [address] [address] 30 May, 2019 Back pain M54.9 [facility] [address] [address] May, Cellulitis of other specified site L03.8 18 ; Dermatitis L30.9 and Lumbar radiculopathy M54.16 [facility] [address] [address] May, [facility] [address] [address] May, Back pain M54.9 [facility] [address] [address] 05 May, 2019 [facility] [address] [address] May, Back pain M54.9 [facility] [address] [address] Apr, [facility] [address] [address] Apr, Back pain M54.9 [facility] [address] [address] Apr, Hyponatremia E87.1 [place] [address] [address] Apr, Hyponatremia E87.1 [facility] [address] [address] Mar, Arthritis M19.90 ; Impacted cerumen of r ight ear H61.[address] [facility] [id number] [place] [id number] Mar, [facility] [address] [address] Mar, Back pain M54.9 [facility] [address] [address] Feb, Back pain M54.9 [facility] [address] [address] Feb, [facility] [address] [address] Feb, Dermatitis L30.9 [facility] [address] [address] January, Dermatitis L30.9 [facility] [address] [address] January, [facility] [address] [address] January, Back pain M54.9 [facility] [address] [address] Dec, [facility] [address] [address] Dec, Back pain M54.9 [facility] [address] [address] Dec, Lumbar radiculopathy M54.16 ; Arthritis M19.90 and Dyshydrosis L30.1 [facility] [address] [address] Nov, Back pain M54.9 [facility] [address] [address] Nov, [facility] [address] [address] Oct, [facility] [address] [address] Oct, Back pain M54.9 [facility] [address] [address] Oct, [facility] [address] [address] Oct, [facility] [address] [address] Sep, Back pain M54.9 [facility] [address] [address] Sep, [facility] [address] [address] Aug, Back pain M54.9 [facility] [address] [address] Aug, Encounter for immunization Z23 ; Arthrit is M19.90 and Generalized anxiety disorder F41.1 [facility] [address] [address] Aug, [facility] [address] [address] Aug, [facility] [address] [address] Jul, Back pain M54.9 [facility] [address] [address] Jul, [facility] [address] [address] Jul, [facility] [address] [address] Jun, Back pain M54.9 [facility] [address] [address] Jun, [facility] [address] [address] Jun, Back pain M54.9 [facility] [address] [address] May, Lumbar radiculopathy M54.16 ; Hypertensi on I10 and Generalized anxiety disorder F41.1 [facility] [address] [address] 06 May, 2018 Back pain M54.9 [facility] [address] [address] Apr, [facility] [address] [address] Apr, [facility] [address] [address] Apr, Back pain M54.9 [facility] [address] [address] Mar, Back pain M54.9 [facility] [address] [address] Feb, [facility] [address] [address] Feb, [facility] [address] [address] Feb, [facility] [address] [address] Feb, Back pain M54.9 [facility] [address] [address] Feb, Back pain M54.9 ; Hypertension I10 ; Gen eralized anxiety disorder F41.1 and Venous insufficiency I87.2 [facility] [address] [address] January, [facility] [address] [address] January, Back pain M54.9 [facility] [address] [address] Dec, [facility] [address] [address] Dec, Back pain M54.9 [facility] [address] [address] Nov, Back pain M54.9 [facility] [address] [address] Nov, [facility] [address] [address] Nov, Lumbar radiculopathy M54.16 ; Hypertensi on I10 ; Arthritis M19.90 and Back pain M54.9 [place] [address] [address] Oct, Back pain M54.9 [facility] [address] [address] Oct, [facility] [address] [address] Sep, Back pain M54.9 [facility] [address] [address] Sep, [facility] [address] [address] Aug, Back pain M54.9 [facility] [address] [address] Jul, Back pain M54.9 [facility] [address] [address] Jul, Encounter for immunization Z23 ; Back pa in M54.9 ; Hypertension I10 and Lumbar radiculopathy M54.16 [facility] [address] [address] Jul, Back pain M54.9 [facility] [address] [address] Jun, Vitamin D deficiency E55.9 [facility] [address] [address] 04 Jun, 2017 Back pain M54.9 [facility] [address] [address] 20 May, 2017 [facility] [address] [address] 08 May, 2017 [facility] [address] [address] 08 May, 2017 [facility] [address] [address] May, Back pain M54.9 [facility] [address] [address] 15 Apr, 2017 Back pain M54.9 ; Hypertension I10 ; Art hritis M19.90 and Generalized anxiety disorder F41.1 [facility] [address] [address] Apr, Back pain M54.9 [facility] [address] [address] Mar, Back pain M54.9 [facility] [address] [address] 10 Mar, 2017 Vitamin D deficiency E55.9 [facility] [address] [address] 15 Feb, 2017 Vitamin D deficiency E55.9 [facility] [address] [address] 14 Feb, 2017 Vitamin D deficiency E55.9 [facility] [address] [address] 13 Feb, 2017 Back pain M54.9 [facility] [address] [address] January, Back pain M54.9 [facility] [address] [address] January, Arthritis M19.90 [place] [address] [address] January, Vitamin D deficiency E55.9 and Arthritis M19.90 [facility] [address] [address] Dec, Medicare annual wellness visit, initial Z00.00 and Encounter for immunization Z23 [place] [address] [address] Dec, Back pain M54.9 [place] [address] [address] Nov, Back pain M54.9 [place] [address] [address] 24 Oct, 2016 Back pain M54.9 [place] [address] [address] 14 Oct, 2016 COPD (chronic obstructive pulmonary dise ase) J44.9 [place] [address] [address] Oct, [place] [address] [address] 02 Oct, 2016 Hypertension I10 ; Back pain M54.9 and E ncounter for immunization Z23 [place] [address] [address] Sep, [place] [address] [address] Sep, Back pain M54.9 [place] [address] [address] Sep, Back pain M54.9 [place] [address] [address] Aug, [place] [address] [address] Aug, Back pain M54.9 [facility] [address] [place] [id number] [place] [address] Aug, [facility] [address] [place] [id number] [place] [address] Aug, [facility] [address] [address] Aug, Back pain M54.9 [facility] [address] [address] Jul, [facility] [address] [address] Jul, Back pain M54.9 [facility] [address] [address] Jun, Back pain M54.9 ; Hypertension I10 ; Gen eralized anxiety disorder F41.1 and Encounter for immunization Z23 [facility] [address] [address] Jun, [facility] [address] [address] May, [facility] [address] [address] Apr, [facility] [address] [address] Apr, [facility] [address] [address] Mar, [facility] [address] [address] Mar, [facility] [address] [address] Mar, [facility] [address] [address] Feb, Back pain M54.9 and Hypertension I10 [facility] [address] [address] Feb, Back pain M54.9 [facility] [address] [id number] [place] [address] Dec, COPD (chronic obstructive pulmonary dise ase) J44.9 [facility] [address] [place] [id number] [place] [address] Dec, [facility] [address] [place] [id number] [place] [address] Dec, Back pain M54.9 [facility] [address] [place] [id number] [place] [address] Nov, Back pain M54.9 [facility] [address] [address] Nov, COPD (chronic obstructive pulmonary dise ase) J44.9 [facility] [address] [address] Nov, Hypertension I10 and Back pain M54.9 [facility] [address] [address] Oct, Hypertension I10 and Back pain M54.9 [facility] [address] [address] Oct, Back pain M54.9 [facility] [address] [place] [id number] [place] [address] Sep, Back pain M54.9 [facility] [address] [address] Sep, [facility] [address] [place] [id number] [place] [address] Sep, [facility] [address] [address] Sep, [facility] [address] [place] [id number] [place] [address] Sep, [facility] [address] [address] Aug, [facility] [address] [address] Aug, [facility] [address] [address] Aug, [facility] [address] [address] Aug, [facility] [address] [address] Aug, [facility] [address] [address] Jul, [facility] [address] [address] Jul, Back pain M54.9 ; Arthritis M19.90 ; Hyp ertension I10 and Encounter for immunization Z23 [facility] [address] [address] Jul, Generalized anxiety disorder F41.1 and D epressive disorder, not elsewhere classified F32.9 [facility] [address] [address] Jul, [facility] [address] [address] Jul, [facility] [address] [address] Jul, [facility] [address] [address] Jun, [facility] [address] [address] Jun, [facility] [address] [address] May, [facility] [address] [address] May, [facility] [address] [address] May, [facility] [address] [place] [id number] [place] [address] May, [facility] [address] [place] [id number] [place] [address] May, Benign essential hypertension 401.1 ; An xiety state, unspecified 300.00 ; Back pain 724.5 and Arthritis 716.90 [facility] [address] [place] [id number] [place] [address] May, [facility] [address] [place] [id number] [place] [address] Apr, [facility] [address] [address] Apr, [facility] [address] [place] [id number] [place] [address] Apr, [facility] [address] [place] [id number] [place] [address] Mar, [facility] [address] [place] [id number] [place] [address] Mar, [facility] [address] [place] [id number] [place] [address] Mar, [facility] [address] [address] Feb, High risk medication use V58.69 [facility] [address] [place] [id number] [place] [address] Feb, Benign essential hypertension 401.1 ; An xiety state, unspecified 300.00 and Chronic pain 338.29 [facility] [address] [place] [address] [id number] [place] [address] Feb, [facility] [address] [address] January, [facility] [address] [place] [address] [id number] [place] [address] January, [facility] [address] [address] January, [facility] [address] [id number] [place] [address] January, [facility] [address] [id number] [facility] [place] [address] Dec, [facility] [address] [id number] [facility] [place] [address] Dec, [facility] [address] [id number] [facility] [place] [address] Nov, [facility] [address] [facility] [id number] [facility] [place] [address] Nov, [facility] [address] [id number] [place] [address] Nov, [facility] [address] [id number] [place] [address] Nov, [facility] [address] [id number] [facility] [place] [address] Oct, [facility] [address] [id number] [facility] [place] [address] Oct, [facility] [address] [id number] [place] [address] Oct, [facility] [address] [id number] [place] [address] Oct, [facility] [address] [id number] [place] [address] Oct, [facility] [address] [id number] [facility] [place] [address] Sep, [facility] [address] [id number] [place] [address] Sep, [facility] [address] [id number] [place] [address] Sep, [facility] [address] [id number] [place] [address] Sep, [facility] [address] [id number] [place] [address] Aug, [facility] [address] [id number] [place] [address] Aug, [facility] [address] [id number] [place] [address] Aug, [facility] [address] [id number] [place] [address] Aug, [facility] [address] [id number] [place] [address] Aug, [facility] [address] [id number] [place] [address] Aug, [facility] [address] [id number] [place] [address] Jul, [facility] [address] [id number] [place] [address] Jul, [facility] [address] [id number] [place] [address] Jun, [facility] [address] [id number] [place] [address] Jun, [facility] [address] [id number] [place] [address] Jun, [facility] [address] [id number] [place] [address] Jun, [facility] [address] [id number] [place] [address] May, [facility] [address] [id number] [place] [address] May, [facility] [id number] [place] [address] May, [facility] [address] [id number] [place] [address] May, [facility] [address] [id number] [place] [address] Apr, [facility] [address] [facility] [id number] [place] [address] Apr, [facility] [address] [facility] [id number] [place] [address] Apr, [facility] [address] [id number] [place] [address] Apr, [facility] [address] [id number] [place] [address] Apr, [facility] [address] [facility] [id number] [place] [address] Apr, [facility] [address] [id number] [place] [address] Mar, [facility] [address] [id number] [place] [address] Mar, [facility] [address] [id number] [place] [address] Mar, [facility] [address] [id number] [place] [address] Mar, [facility] [address] [id number] [place] [address] Feb, [facility] [address] [id number] [place] [address] Feb, [facility] [address] [id number] [place] [address] Feb, [facility] [address] [id number] [place] [address] January, [facility] [address] [id number] [place] [address] January, [facility] [address] [id number] [place] [address] January, [facility] [address] [id number] [place] [address] January, [facility] [address] [id number] [place] [address] January, [facility] [address] [facility] [id number] [facility] [place] [address] January, [facility] [address] [facility] [id number] [place] [address] January, [facility] [address] [id number] [facility] [place] [address] January, [facility] [address] [id number] [facility] [place] [address] Dec, [facility] [address] [facility] [id number] [facility] [place] [address] Dec, [facility] [address] [id number] [place] [address] Dec, [facility] [address] [id number] [place] [address] Dec, [facility] [address] [id number] [place] [address] Dec, [facility] [address] [id number] [place] [address] Dec, [facility] [address] [id number] [place] [address] Dec, [facility] [address] [id number] [place] [address] Nov, [facility] [address] [id number] [place] [address] Nov, [facility] [address] [facility] [id number] [place] [address] Nov, [facility] [address] [id number] [place] [address] Nov, [facility] [address] [id number] [place] [address] Nov, [facility] [address] [id number] [place] [address] Nov, [facility] [address] [id number] [place] [address] 11 Nov, 2013 [facility] [address] [id number] [place] [address] 11 Nov, 2013 [facility] [address] [id number] [place] [address] 07 Nov, 2013 [facility] [place] [facility] [address] [id number] [place] [address] 07 Nov, 2013 [facility] [place] [facility] [address] [id number] [place] [address] 07 Nov, 2013 [facility] [place] [facility] [address] [id number] [place] [address] 07 Nov, 2013 [facility] [place] [facility] [address] [id number] [place] [address] 07 Oct, 2013 [facility] [place] [facility] [address] [id number] [place] [address] 07 Oct, 2013 [facility] [place] [facility] [address] [id number] [place] [address] Sep, [facility] [place] [facility] [address] [id number] [place] [address] Sep, [facility] [place] [facility] [address] [id number] [place] [address] Sep, [facility] [place] [facility] [address] [id number] [place] [address] Sep, [facility] [place] [facility] [address] [id number] [place] [address] Aug, [facility] [place] [facility] [address] [id number] [place] [address] Aug, [facility] [place] [facility] [address] [id number] [place] [address] 15 Jul, 2013 [facility] [place] [facility] [address] [id number] [place] [address] 15 Jul, 2013 [facility] [place] [facility] [address] [id number] [place] [address] 15 Jul, 2013 [facility] [place] [facility] [address] [id number] [place] [address] 15 Jul, 2013 [facility] [place] [facility] [address] [id number] [place] [address] Jun, [facility] [place] [facility] [address] [id number] [place] [address] Jun, [facility] [place] [facility] [address] [id number] [place] [address] Jun, [facility] [place] [facility] [address] [facility] [id number] [place] [address] 18 Jun, 2013 [facility] [place] [facility] [address] [id number] [place] [address] 14 Jun, 2013 [facility] [place] [facility] [address] [id number] [place] [address] 14 Jun, 2013 [facility] [place] [facility] [address] [id number] [place] [address] 20 May, 2013 [facility] [place] [facility] [address] [id number] [place] [address] 18 May, 2013 [facility] [place] [facility] [address] [id number] [place] [address] May, [facility] [place] [facility] [address] [id number] [place] [address] Apr, [facility] [place] [facility] [address] [id number] [place] [address] Apr, [facility] [place] [facility] [address] [id number] [place] [address] Apr, [facility] [place] [facility] [address] [id number] [place] [address] Mar, [facility] [place] [facility] [address] [id number] [place] [address] Mar, [facility] [place] [facility] [address] [id number] [place] [address] Feb, [facility] [place] [facility] [address] [id number] [place] [address] Feb, [facility] [place] [facility] [address] [facility] [id number] [place] [address] Feb, [facility] [place] [facility] [address] [id number] [place] [address] January, [facility] [place] [facility] [address] [id number] [place] [address] January, [facility] [place] [facility] [address] [id number] [place] [address] January, [facility] [place] [facility] [address] [id number] [place] [address] Dec, [facility] [place] [facility] [address] [id number] [place] [address] Dec, [facility] [place] [facility] [address] [id number] [place] [address] Dec, [facility] [place] [facility] [address] [id number] [place] [address] Nov, [facility] [place] [facility] [address] [id number] [place] [address] Nov, [facility] [place] [facility] [address] [id number] [place] [address] Nov, [facility] [place] [facility] [address] [id number] [place] [address] 18 Oct, 2012 [facility] [place] [facility] [address] [id number] [place] [address] 14 Oct, 2012 [facility] [place] [facility] [address] [id number] [place] [address] Sep, [facility] [place] [facility] [address] [id number] [place] [address] Sep, [facility] [place] [facility] [address] [id number] [place] [address] Sep, [facility] [place] [facility] [address] [id number] [place] [address] Aug, [facility] [place] [facility] [address] [id number] [place] [address] Aug, [facility] [place] [facility] [address] [id number] [place] [address] Aug, [facility] [place] [facility] [address] [id number] [place] [address] Aug, [facility] [place] [facility] [id number] [place] [address] Aug, [facility] [place] [facility] [address] [id number] [place] [address] Jul, [facility] [place] [facility] [address] [id number] [place] [address] Jul, [facility] [place] [facility] [address] [id number] [place] [address] Jul, [facility] [place] [facility] [id number] [place] [address] Jul, [facility] [place] [facility] [id number] [place] [address] Jul, [facility] [place] [facility] [address] [id number] [place] [address] Jul, [facility] [place] [facility] [id number] [place] [address] Jun, [facility] [place] [facility] [address] [id number] [place] [address] Jun, [facility] [place] [facility] [address] [id number] [place] [address] Jun, [facility] [place] [facility] [address] [id number] [place] [address] Jun, [facility] [place] [facility] [id number] [place] [address] May, [facility] [place] [facility] [address] [id number] [place] [address] 06 May, 2012 [facility] [place] [facility] [address] [id number] [place] [address] 16 Apr, 2012 [facility] [place] [facility] [address] [facility] [id number] [place] [address] Apr, [facility] [place] [facility] [address] [id number] [place] [address] Apr, [facility] [place] [facility] [address] [id number] [place] [address] 17 Mar, 2012 [facility] [place] [facility] [address] [id number] [place] [address] Mar, [facility] [place] [facility] [address] [facility] [id number] [place] [address] Feb, [facility] [place] [facility] [address] [id number] [place] [address] January, [facility] [place] [facility] [address] [id number] [place] [address] January, [facility] [place] [facility] [address] [id number] [place] [address] Dec, [facility] [place] [facility] [address] [id number] [place] [address] Dec, [facility] [place] [facility] [address] [id number] [place] [address] Dec, [facility] [place] [facility] [address] [id number] [place] [address] Dec, [facility] [place] [facility] [address] [id number] [place] [address] Nov, [facility] [place] [facility] [address] [id number] [place] [address] Nov, [facility] [place] [facility] [address] [id number] [place] [address] Nov, [facility] [place] [facility] [address] [id number] [place] [address] Nov, [facility] [place] [facility] [address] [id number] [place] [address] Oct, [facility] [place] [facility] [address] [id number] [place] [address] 09 Oct, 2011 [facility] [place] [facility] [address] [id number] [place] [address] Sep, [facility] [place] [facility] [address] [id number] [place] [address] 30 Aug, 2011 [facility] [place] [facility] [id number] [place] [address] Aug, [facility] [place] [facility] [address] [id number] [place] [address] Aug, [facility] [place] [facility] [address] [id number] [place] [address] Jul, [facility] [place] [facility] [address] [id number] [place] [address] Jul, [facility] [place] [facility] [id number] [place] [address] Jul, [facility] [place] [facility] [id number] [place] [address] 20 Jun, 2011 [facility] [place] [facility] [address] [id number] [place] [address] 14 Jun, 2011 [facility] [place] [facility] [id number] [place] [address] 13 Jun, 2011 [facility] [place] [facility] [id number] [place] [address] 13 Jun, 2011 [facility] [place] [facility] [address] [id number] [place] [address] May, [facility] [place] [facility] [address] [id number] [place] [address] January, [facility] [place] [facility] [id number] [place] [address] 28 Aug, 2010 [facility] [place] [facility] [address] [id number] [place] [address] Aug, [facility] [place] [facility] [address] [id number] [place] [address] 10 Aug, 2010 [facility] [address] [id number] [place] [address] Aug, [facility] [address] [id number] [place] [address] Jul, [facility] [address] [id number] [place] [address] Jul, [facility] [address] [id number] [place] [address] 15 Jun, 2010 [facility] [address] [id number] [place] [address] Jun, [facility] [address] [id number] [place] [address] May, [facility] [address] [id number] [place] [address] January, IMMUNIZATIONS No Known Immunizations SOCIAL HISTORY Never Assessed REASON FOR VISIT PLAN OF CARE VITAL SIGNS Height 62 in 2013-11-25 Weight 150 lbs 2013-11-25 Temperature 98.8 degrees Fahrenheit 2013-11-25 Heart Rate 72 bpm 2013-11-25 Respiratory Rate 18 2013-11-25 Blood pressure systolic 152 mmHg 2013-11-25 Blood pressure diastolic 68 mmHg 2013-11-25 MEDICATIONS Unknown Medications RESULTS No Results PROCEDURES [...]
--- OUTSIDE RECORDS SUMMARY | 2020-02-13 16:31 | XMS REPORT ---
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 9 Active 68929704 Problem COPD (chronic obstructive pulmonary disease) J44.9 Active 26714785 Problem Vitamin D deficiency E55.9 Active 20838853 ALLERGIES No Information ENCOUNTERS Encounter Location Date Diagnosis [place] [address] [address] Nov, [place] [address] [address] Oct, [place] [address] [address] 11 Oct, 2019 Back pain M54.9 [place] [address] [address] 10 Oct, 2019 [place] [address] [address] 06 Oct, 2019 Skin sore L98.9 [place] [address] [address] Sep, Radiculopathy, lumbar region M54.16 [place] [address] [address] 15 Sep, 2019 Back pain M54.9 [facility] [address] [address] 14 Sep, 2019 Generalized anxiety disorder F41.1 [facility] [address] [address] 30 Aug, 2019 Radiculopathy, lumbar region M54.16 [facility] [address] [address] Aug, Back pain M54.9 [facility] [address] [address] Aug, Lumbar radiculopathy M54.16 ; Generalize d anxiety disorder F41.1 and Drug-induced constipation K59.03 [facility] [address] [address] Jul, Radiculopathy, lumbar region M54.16 [facility] [address] [address] Jul, [facility] [address] [address] Jul, [facility] [address] [address] Jul, Back pain M54.9 [facility] [address] [address] Jul, Radiculopathy, lumbar region M54.16 [facility] [address] [address] Jul, Radiculopathy, lumbar region M54.16 [facility] [address] [address] Jun, Back pain M54.9 [facility] [address] [address] Jun, [facility] [address] [address] 08 Jun, 2019 Radiculopathy, lumbar region M54.16 [facility] [address] [address] 08 Jun, 2019 [facility] [address] [address] 30 May, 2019 Back pain M54.9 [facility] [address] [address] May, Cellulitis of other specified site L03.8 18 ; Dermatitis L30.9 and Lumbar radiculopathy M54.16 [facility] [address] [address] May, [facility] [address] [address] May, Back pain M54.9 [facility] [address] [address] 05 May, 2019 [facility] [address] [address] 04 May, 2019 Back pain M54.9 [facility] [address] [address] 14 Apr, 2019 [facility] [address] [address] 08 Apr, 2019 Back pain M54.9 [facility] [address] [address] Apr, Hyponatremia E87.1 [facility] [address] [address] Apr, Hyponatremia E87.1 [facility] [address] [address] Mar, Arthritis M19.90 ; Impacted cerumen of r ight ear H61.21 and Hypertension I10 [facility] [id number] [place] [id number] Mar, [facility] [address] [place] [id number] [place] [address] Mar, Back pain M54.9 [facility] [address] [place] [address] [id number] [place] [address] Feb, Back pain M54.9 [facility] [address] [address] [id number] [place] [address] Feb, [facility] [address] [address] Feb, Dermatitis L30.9 [facility] [address] [address] January, Dermatitis L30.9 [facility] [address] [id number] [place] [address] January, [facility] [address] [id number] [place] [address] January, Back pain M54.9 [facility] [address] [address] [id number] [place] [address] Dec, [facility] [address] [address] Dec, Back pain M54.9 [facility] [address] [address] Dec, Lumbar radiculopathy M54.16 ; Arthritis M19.90 and Dyshydrosis L30.1 [facility] [address] [place] [id number] [place] [address] Nov, Back pain M54.9 [facility] [address] [id number] [place] [address] Nov, [facility] [address] [address] Oct, [facility] [address] [address] Oct, Back pain M54.9 [facility] [address] [address] 14 Oct, 2018 [facility] [address] [address] 14 Oct, 2018 [facility] [address] [address] Sep, Back pain M54.9 [facility] [address] [address] Sep, [facility] [address] [address] Aug, Back pain M54.9 [facility] [address] [address] Aug, Encounter for immunization Z23 ; Arthrit is M19.90 and Generalized anxiety disorder F41.1 [facility] [address] [address] Aug, [facility] [address] [address] Aug, [facility] [address] [address] Jul, Back pain M54.9 [facility] [address] [address] Jul, [facility] [address] [address] Jul, [facility] [address] [address] Jun, Back pain M54.9 [facility] [address] [address] Jun, [facility] [address] [address] Jun, Back pain M54.9 [facility] [address] [address] 11 May, 2018 Lumbar radiculopathy M54.16 ; Hypertensi on I10 and Generalized anxiety disorder F41.1 [facility] [address] [address] May, Back pain M54.9 [facility] [address] [address] Apr, [facility] [address] [address] Apr, [facility] [address] [address] Apr, Back pain M54.9 [facility] [address] [address] Mar, Back pain M54.9 [facility] [address] [address] Feb, [facility] [address] [address] Feb, [facility] [address] [address] Feb, [facility] [address] [address] Feb, Back pain M54.9 [facility] [address] [address] Feb, Back pain M54.9 ; Hypertension I10 ; Gen eralized anxiety disorder F41.1 and Venous insufficiency I87.2 [facility] [address] [address] January, [facility] [address] [address] January, Back pain M54.9 [facility] [address] [address] Dec, [facility] [address] [address] Dec, Back pain M54.9 [facility] [address] [address] Nov, Back pain M54.9 [facility] [address] [address] Nov, [facility] [address] [address] Nov, Lumbar radiculopathy M54.16 ; Hypertensi on I10 ; Arthritis M19.90 and Back pain M54.9 [facility] [address] [address] Oct, Back pain M54.9 [facility] [address] [address] Oct, [facility] [address] [address] Sep, Back pain M54.9 [facility] [address] [address] Sep, [facility] [address] [address] Aug, Back pain M54.9 [facility] [address] [address] Jul, Back pain M54.9 [facility] [address] [address] 09 Jul, 2017 Encounter for immunization Z23 ; Back pa in M54.9 ; Hypertension I10 and Lumbar radiculopathy M54.16 [facility] [address] [address] Jul, Back pain M54.9 [facility] [address] [address] Jun, Vitamin D deficiency E55.9 [facility] [address] [address] Jun, Back pain M54.9 [facility] [address] [place] [id number] [place] [address] 20 May, 2017 [facility] [address] [address] 08 May, 2017 [facility] [address] [address] 08 May, 2017 [facility] [address] [address] May, Back pain M54.9 [facility] [address] [address] 15 Apr, 2017 Back pain M54.9 ; Hypertension I10 ; Art hritis M19.90 and Generalized anxiety disorder F41.1 [facility] [address] [address] 08 Apr, 2017 Back pain M54.9 [facility] [address] [address] 12 Mar, 2017 Back pain M54.9 [facility] [address] [address] 10 Mar, 2017 Vitamin D deficiency E55.9 [facility] [address] [address] 15 Feb, 2017 Vitamin D deficiency E55.9 [facility] [address] [address] 14 Feb, 2017 Vitamin D deficiency E55.9 [facility] [address] [address] 13 Feb, 2017 Back pain M54.9 [facility] [address] [address] January, Back pain M54.9 [facility] [address] [address] January, Arthritis M19.90 [facility] [address] [address] January, Vitamin D deficiency E55.9 and Arthritis M19.90 [facility] [address] [address] Dec, Medicare annual wellness visit, initial Z00.00 and Encounter for immunization Z23 [facility] [address] [address] Dec, Back pain M54.9 [facility] [address] [address] Nov, Back pain M54.9 [facility] [address] [address] 24 Oct, 2016 Back pain M54.9 [facility] [address] [address] 14 Oct, 2016 COPD (chronic obstructive pulmonary dise ase) J44.9 [facility] [address] [address] Oct, [facility] [address] [address] 02 Oct, 2016 Hypertension I10 ; Back pain M54.9 and E ncounter for immunization Z23 [facility] [address] [address] Sep, [facility] [address] [address] Sep, Back pain M54.9 [facility] [address] [address] Sep, Back pain M54.9 [facility] [address] [address] Aug, [facility] [address] [address] Aug, Back pain M54.9 [facility] [address] [address] Aug, [facility] [address] [address] [id number] [place] [address] Aug, [facility] [address] [address] Aug, Back pain M54.9 [facility] [id number] [place] [address] Jul, [facility] [address] [address] Jul, Back pain M54.9 [facility] [address] [address] Jun, Back pain M54.9 ; Hypertension I10 ; Gen eralized anxiety disorder F41.1 and Encounter for immunization Z23 [facility] [address] [address] Jun, [facility] [address] [address] May, [facility] [address] [address] Apr, [facility] [address] [address] Apr, [facility] [address] [address] Mar, [facility] [address] [address] Mar, [facility] [address] [address] Mar, [facility] [address] [address] Feb, Back pain M54.9 and Hypertension I10 [facility] [address] [address] Feb, Back pain M54.9 [facility] [address] [address] Dec, COPD (chronic obstructive pulmonary dise ase) J44.9 [facility] [address] [id number] [place] [address] Dec, [facility] [address] [id number] [place] [address] Dec, Back pain M54.9 [facility] [id number] [place] [address] Nov, Back pain M54.9 [facility] [id number] [place] [address] Nov, COPD (chronic obstructive pulmonary dise ase) J44.9 [facility] [id number] [place] [address] Nov, Hypertension I10 and Back pain M54.9 [facility] [id number] [place] [address] Oct, Hypertension I10 and Back pain M54.9 [facility] [id number] [place] [address] Oct, Back pain M54.9 [facility] [id number] [place] [address] Sep, Back pain M54.9 [facility] [address] [id number] [place] [address] Sep, [facility] [id number] [place] [address] Sep, [facility] [id number] [place] [address] Sep, [facility] [id number] [place] [address] Sep, [facility] [id number] [place] [address] Aug, [facility] [id number] [place] [address] Aug, [facility] [address] [address] 14 Aug, 2015 [facility] [address] [address] Aug, [facility] [address] [address] Aug, [facility] [address] [address] Jul, [facility] [address] [address] Jul, Back pain M54.9 ; Arthritis M19.90 ; Hyp ertension I10 and Encounter for immunization Z23 [facility] [address] [address] Jul, Generalized anxiety disorder F41.1 and D epressive disorder, not elsewhere classified F32.9 [facility] [address] [address] Jul, [facility] [address] [address] Jul, [facility] [address] [address] Jul, [facility] [address] [address] Jun, [facility] [address] [address] Jun, [facility] [address] [address] May, [facility] [address] [address] May, [facility] [address] [address] May, [facility] [address] [address] 11 May, 2015 [facility] [address] [address] May, Benign essential hypertension 401.1 ; An xiety state, unspecified 300.00 ; Back pain 724.5 and Arthritis 716.90 [facility] [id number] [place] [address] May, [facility] [id number] [place] [address] Apr, [facility] [id number] [place] [address] Apr, [facility] [id number] [place] [address] Apr, [facility] [id number] [place] [address] Mar, [facility] [id number] [place] [address] Mar, [facility] [id number] [place] [address] Mar, [facility] [id number] [place] [address] Feb, High risk medication use V58.69 [facility] [id number] [place] [address] Feb, Benign essential hypertension 401.1 ; An xiety state, unspecified 300.00 and Chronic pain 338.29 [facility] [id number] [place] [address] Feb, [facility] [id number] [place] [address] January, [facility] [id number] [place] [address] January, [facility] [id number] [place] [address] January, [facility] [id number] [place] [address] January, [facility] [id number] [place] [address] 14 Dec, 2014 [facility] [address] [address] [id number] [place] [address] Dec, [facility] [address] [facility] [id number] [place] [address] Nov, [facility] [address] [facility] [id number] [place] [address] Nov, [facility] [address] [id number] [place] [address] Nov, [facility] [address] [facility] [id number] [place] [address] Nov, [facility] [address] [id number] [place] [address] Oct, [facility] [address] [id number] [place] [address] Oct, [facility] [address] [id number] [place] [address] Oct, [facility] [address] [id number] [place] [address] Oct, [facility] [address] [id number] [place] [address] Oct, [facility] [address] [facility] [address] [id number] [place] [address] Sep, [facility] [address] [facility] [address] [id number] [place] [address] Sep, [facility] [address] [facility] [address] [id number] [place] [address] Sep, [facility] [address] [facility] [address] [id number] [place] [address] Sep, [facility] [address] [facility] [address] [id number] [place] [address] Aug, [facility] [address] [address] [id number] [place] [address] Aug, [facility] [address] [address] [id number] [place] [address] Aug, [facility] [address] [address] [id number] [place] [address] Aug, [facility] [address] [address] [id number] [place] [address] Aug, [facility] [address] [facility] [address] [id number] [place] [address] Aug, [facility] [address] [id number] [place] [address] Jul, [facility] [address] [facility] [address] [id number] [place] [address] Jul, [facility] [address] [facility] [address] [id number] [place] [address] Jun, [facility] [address] [facility] [address] [id number] [place] [address] Jun, [facility] [address] [facility] [id number] [place] [address] Jun, [facility] [address] [facility] [address] [id number] [place] [address] Jun, [facility] [address] [facility] [id number] [place] [address] May, [facility] [address] [facility] [address] [id number] [place] [address] May, [facility] [address] [facility] [id number] [place] [address] May, [facility] [address] [facility] [id number] [place] [address] May, [facility] [address] [facility] [id number] [place] [address] Apr, [facility] [address] [id number] [place] [address] Apr, [facility] [address] [id number] [place] [address] Apr, [facility] [id number] [place] [address] Apr, [facility] [address] [facility] [id number] [place] [address] Apr, [facility] [address] [id number] [place] [address] Apr, [facility] [address] [id number] [place] [address] Mar, [facility] [address] [id number] [place] [address] Mar, [facility] [address] [id number] [place] [address] Mar, [facility] [address] [id number] [place] [address] Mar, [facility] [address] [id number] [place] [address] Feb, [facility] [address] [id number] [place] [address] Feb, [facility] [address] [id number] [place] [address] Feb, [facility] [address] [id number] [place] [address] January, [facility] [address] [id number] [place] [address] January, [facility] [address] [id number] [place] [address] January, [facility] [address] [id number] [place] [address] January, [facility] [address] [id number] [place] [address] January, [facility] [address] [id number] [place] [address] January, [facility] [address] [facility] [id number] [place] [address] January, [facility] [address] [id number] [place] [address] January, [facility] [address] [id number] [place] [address] Dec, [facility] [address] [id number] [place] [address] Dec, [facility] [address] [facility] [id number] [place] [address] Dec, [facility] [address] [id number] [place] [address] Dec, [facility] [address] [id number] [place] [address] Dec, [facility] [address] [id number] [place] [address] Dec, [facility] [address] [id number] [place] [address] Dec, [facility] [id number] [place] [address] Nov, [facility] [id number] [place] [address] Nov, [facility] [id number] [place] [address] Nov, [facility] [id number] [place] [address] Nov, [facility] [id number] [place] [address] Nov, [facility] [id number] [place] [address] Nov, [facility] [id number] [place] [address] Nov, [facility] [id number] [place] [address] Nov, [facility] [id number] [place] [address] Nov, [facility] [id number] [place] [address] 07 Nov, 2013 [facility] [id number] [place] [address] Nov, [facility] [id number] [place] [address] Nov, [facility] [id number] [place] [address] Oct, [facility] [id number] [place] [address] 07 Oct, 2013 [facility] [id number] [place] [address] Sep, [facility] [id number] [place] [address] Sep, [facility] [id number] [place] [address] Sep, [facility] [id number] [place] [address] Sep, [facility] [id number] [place] [address] 13 Aug, 2013 [facility] [id number] [place] [address] Aug, [facility] [id number] [place] [address] 15 Jul, 2013 [facility] [id number] [place] [address] 15 Jul, 2013 [facility] [id number] [place] [address] 15 Jul, 2013 [facility] [id number] [place] [address] 15 Jul, 2013 [facility] [id number] [place] [address] 28 Jun, 2013 [facility] [address] [id number] [place] [address] 28 Jun, 2013 [facility] [address] [facility] [id number] [place] [address] 18 Jun, 2013 [facility] [address] [id number] [place] [address] 18 Jun, 2013 [facility] [address] [facility] [id number] [place] [address] 14 Jun, 2013 [facility] [address] [facility] [id number] [place] [address] 14 Jun, 2013 [facility] [address] [id number] [place] [address] 20 May, 2013 [facility] [address] [id number] [place] [address] 18 May, 2013 [facility] [address] [id number] [place] [address] 16 May, 2013 [facility] [address] [id number] [place] [address] Apr, [facility] [address] [id number] [place] [address] Apr, [facility] [address] [id number] [place] [address] Apr, [facility] [address] [id number] [place] [address] Mar, [facility] [address] [facility] [id number] [place] [address] Mar, [facility] [address] [id number] [place] [address] Feb, [facility] [address] [id number] [place] [address] Feb, [facility] [address] [id number] [place] [address] Feb, [facility] [address] [id number] [place] [address] January, [facility] [address] [id number] [place] [address] January, [facility] [address] [id number] [place] [address] January, [facility] [address] [id number] [place] [address] 15 Dec, 2012 [facility] [address] [id number] [place] [address] Dec, [facility] [address] [id number] [place] [address] 08 Dec, 2012 [facility] [address] [id number] [place] [address] Nov, [facility] [address] [id number] [place] [address] 14 Nov, 2012 [facility] [address] [id number] [place] [address] Nov, [facility] [address] [id number] [place] [address] 18 Oct, 2012 [facility] [address] [id number] [place] [address] Oct, [facility] [address] [id number] [place] [address] Sep, [facility] [address] [id number] [place] [address] Sep, [facility] [address] [id number] [place] [address] Sep, [facility] [address] [id number] [place] [address] Aug, [facility] [address] [id number] [place] [address] Aug, [facility] [address] [id number] [place] [address] Aug, [facility] [address] [id number] [place] [address] Aug, [facility] [address] [id number] [place] [address] Aug, [facility] [address] [id number] [place] [address] Jul, [facility] [address] [id number] [place] [address] Jul, [facility] [address] [id number] [place] [address] Jul, [facility] [address] [id number] [place] [address] Jul, [facility] [address] [id number] [place] [address] Jul, [facility] [address] [id number] [place] [address] Jul, [facility] [address] [id number] [place] [address] Jun, [facility] [address] [id number] [place] [address] Jun, [facility] [address] [id number] [place] [address] Jun, [facility] [address] [id number] [place] [address] Jun, [facility] [address] [id number] [place] [address] May, [facility] [address] [id number] [place] [address] 06 May, 2012 [facility] [address] [id number] [place] [address] Apr, [facility] [address] [id number] [place] [address] 15 Apr, 2012 [facility] [address] [id number] [place] [address] 14 Apr, 2012 [facility] [address] [id number] [place] [address] 17 Mar, 2012 [facility] [address] [id number] [place] [address] Mar, [facility] [address] [id number] [place] [address] Feb, [facility] [address] [id number] [place] [address] January, [facility] [address] [id number] [place] [address] January, [facility] [address] [id number] [place] [address] Dec, [facility] [address] [id number] [place] [address] Dec, [facility] [address] [id number] [place] [address] Dec, [facility] [address] [id number] [place] [address] Dec, [facility] [address] [id number] [place] [address] Nov, [facility] [address] [id number] [place] [address] Nov, [facility] [address] [id number] [place] [address] 15 Nov, 2011 [facility] [address] [id number] [place] [address] Nov, [facility] [address] [id number] [place] [address] 14 Oct, 2011 [facility] [address] [id number] [place] [address] 09 Oct, 2011 [facility] [address] [id number] [place] [address] 13 Sep, 2011 [facility] [address] [id number] [place] [address] 30 Aug, 2011 [facility] [address] [id number] [place] [address] Aug, [facility] [address] [id number] [place] [address] Aug, [facility] [address] [id number] [place] [address] Jul, [facility] [address] [id number] [place] [address] Jul, [facility] [address] [id number] [place] [address] Jul, [facility] [address] [id number] [place] [address] 20 Jun, 2011 [facility] [address] [id number] [place] [address] 14 Jun, 2011 [facility] [address] [id number] [place] [address] 13 Jun, 2011 [facility] [address] [id number] [place] [address] Jun, [facility] [address] [id number] [place] [address] 19 May, 2011 [facility] [address] [id number] [place] [address] January, [facility] [address] [id number] [place] [address] Aug, [facility] [address] [id number] [place] [address] 27 Aug, 2010 [facility] [address] [id number] [place] [address] Aug, [facility] [address] [id number] [place] [address] 10 Aug, 2010 [facility] [address] [id number] [place] [address] 11 Jul, 2010 [facility] [address] [id number] [place] [address] Jul, [facility] [address] [id number] [place] [address] 15 Jun, 2010 [facility] [address] [id number] [place] [address] Jun, [facility] [address] [id number] [place] [address] 16 May, 2010 [facility] [address] [id number] [place] [address] January, IMMUNIZATIONS No Known Immunizations SOCIAL HISTORY [...]
--- OUTSIDE RECORDS SUMMARY | 2020-02-13 16:31 | XMS REPORT ---
Author Author Cami GLEZ Organization [facility] Address [address] [place] [address] Care Team Providers Care Entry Level Web Developer Name Role Phone DON GLEZ Unavailable PROBLEMS Type Condition ICD9-CM Code BJJ14-RX Code Onset Dates Condition S tatus SNOMED Code Problem Arthritis M19.90 Active 0144368 Problem Back pain M54.9 Active 845430786 Problem Hypertension I10 Active 2341141 3 Problem Lumbar radiculopathy M54.16 Active 263342356 Problem Venous insufficiency I87.2 Active 00558546 Problem Generalized anxiety disorder F41.1 A ctive 90220718 Problem Depressive disorder, not elsewhere classified F32. 9 Active 44795296 Problem COPD (chronic obstructive pulmonary disease) J44.9 Active 20054575 Problem Vitamin D deficiency E55.9 Active 22293995 ALLERGIES No Information ENCOUNTERS Encounter Location Date Diagnosis [place] [address] [address] Nov, [place] [address] [address] 20 Oct, 2019 Radiculopathy, lumbar region M54.16 [place] [address] [address] 19 Oct, 2019 [place] [address] [address] 11 Oct, 2019 Back pain M54.9 [place] [address] [address] 10 Oct, 2019 [place] [address] [address] 06 Oct, 2019 Skin sore L98.9 [place] [address] [address] Sep, Radiculopathy, lumbar region M54.16 [facility] [address] [address] 15 Sep, [address] [facility] [address] [address] Sep, Generalized anxiety disorder F41.1 [facility] [address] [address] Aug, Radiculopathy, lumbar region M54.16 [facility] [address] [address] Aug, Back pain M54.9 [facility] [address] [address] Aug, Lumbar radiculopathy M54.16 ; Generalize d anxiety disorder F41.1 and Drug-induced constipation K59.03 [facility] [address] [address] Jul, Radiculopathy, lumbar region M54.16 [facility] [address] [address] Jul, [facility] [address] [address] Jul, [facility] [address] [address] Jul, Back pain M54.9 [facility] [address] [address] Jul, Radiculopathy, lumbar region M54.16 [facility] [address] [address] Jul, Radiculopathy, lumbar region M54.16 [facility] [address] [address] Jun, Back pain M54.9 [facility] [address] [address] 09 Jun, 2019 [facility] [address] [address] Jun, Radiculopathy, lumbar region M54.16 [facility] [address] [address] 08 Jun, 2019 [facility] [address] [address] 30 May, [address] [facility] [address] [address] May, Cellulitis of other specified site L03.8 18 ; Dermatitis L30.9 and Lumbar radiculopathy M54.16 [facility] [address] [address] May, [facility] [address] [address] May, Back pain M54.9 [facility] [address] [address] 05 May, 2019 [facility] [address] [address] May, Back pain M54.9 [facility] [address] [address] Apr, [facility] [address] [address] Apr, Back pain M54.9 [facility] [address] [address] Apr, Hyponatremia E87.1 [place] [address] [address] Apr, Hyponatremia E87.1 [facility] [address] [address] Mar, Arthritis M19.90 ; Impacted cerumen of r ight ear H61.21 and Hypertension I10 [facility] [id number] [place] [id number] Mar, [facility] [address] [address] Mar, Back pain M54.9 [facility] [address] [address] Feb, Back pain M54.9 [facility] [address] [address] Feb, [facility] [address] [address] Feb, Dermatitis L30.9 [facility] [address] [address] January, Dermatitis L30.9 [facility] [address] [address] January, [facility] [address] [address] January, Back pain M54.9 [facility] [address] [address] Dec, [facility] [address] [address] Dec, Back pain M54.9 [facility] [address] [address] Dec, Lumbar radiculopathy M54.16 ; Arthritis M19.[address] [facility] [address] [address] Nov, Back pain M54.9 [facility] [address] [address] Nov, [facility] [address] [address] Oct, [facility] [address] [address] Oct, Back pain M54.9 [facility] [address] [address] Oct, [facility] [address] [address] Oct, [facility] [address] [address] Sep, Back pain M54.9 [facility] [address] [address] Sep, [facility] [address] [address] Aug, Back pain M54.9 [facility] [address] [address] Aug, Encounter for immunization Z23 ; Arthrit is M19.90 and Generalized anxiety disorder F41.1 [facility] [address] [address] Aug, [facility] [address] [address] Aug, [facility] [address] [address] Jul, Back pain M54.9 [facility] [address] [address] Jul, [facility] [address] [address] Jul, [facility] [address] [address] Jun, Back pain M54.9 [facility] [address] [address] Jun, [facility] [address] [address] Jun, Back pain M54.9 [facility] [address] [address] May, Lumbar radiculopathy M54.16 ; Hypertensi on I10 and Generalized anxiety disorder F41.1 [facility] [address] [address] 06 May, [address] [facility] [address] [address] Apr, [facility] [address] [address] Apr, [facility] [address] [address] Apr, Back pain M54.9 [facility] [address] [address] Mar, Back pain M54.9 [facility] [address] [address] Feb, [facility] [address] [address] Feb, [facility] [address] [address] Feb, [facility] [address] [address] Feb, Back pain M54.9 [facility] [address] [address] Feb, Back pain M54.9 ; Hypertension I10 ; Gen eralized anxiety disorder F41.1 and Venous insufficiency I87.2 [facility] [address] [address] January, [facility] [address] [address] January, Back pain M54.9 [facility] [address] [address] Dec, [facility] [address] [address] Dec, Back pain M54.9 [facility] [address] [address] Nov, Back pain M54.9 [facility] [address] [address] Nov, [facility] [address] [address] Nov, Lumbar radiculopathy M54.16 ; Hypertensi on I10 ; Arthritis M19.90 and Back pain M54.9 [place] [address] [address] Oct, Back pain M54.9 [facility] [address] [address] Oct, [facility] [address] [address] Sep, Back pain M54.9 [facility] [address] [address] Sep, [facility] [address] [address] Aug, Back pain M54.9 [facility] [address] [address] Jul, Back pain M54.9 [facility] [address] [address] Jul, Encounter for immunization Z23 ; Back pa in M54.9 ; Hypertension I10 and Lumbar radiculopathy M54.16 [facility] [address] [address] Jul, Back pain M54.9 [facility] [address] [address] Jun, Vitamin D deficiency E55.9 [facility] [address] [address] 04 Jun, [address] [facility] [address] [address] 20 May, 2017 [facility] [address] [address] 08 May, 2017 [facility] [address] [address] 08 May, 2017 [facility] [address] [address] May, Back pain M54.9 [facility] [address] [address] 15 Apr, 2017 Back pain M54.9 ; Hypertension I10 ; Art hritis M19.90 and Generalized anxiety disorder F41.1 [facility] [address] [address] Apr, Back pain M54.9 [facility] [address] [address] Mar, Back pain M54.9 [facility] [address] [address] 10 Mar, 2017 Vitamin D deficiency E55.9 [facility] [address] [address] 15 Feb, 2017 Vitamin D deficiency E55.9 [facility] [address] [address] 14 Feb, 2017 Vitamin D deficiency E55.9 [facility] [address] [address] 13 Feb, [address] [facility] [address] [address] January, Back pain M54.9 [facility] [address] [address] January, Arthritis M19.90 [place] [address] [address] January, Vitamin D deficiency E55.[address] [facility] [address] [address] Dec, Medicare annual wellness visit, initial Z00.00 and Encounter for immunization Z23 [place] [address] [address] Dec, Back pain M54.9 [place] [address] [address] Nov, Back pain M54.9 [place] [address] [address] 24 Oct, 2016 Back pain M54.9 [place] [address] [address] 14 Oct, 2016 COPD (chronic obstructive pulmonary dise ase) J44.9 [place] [address] [address] Oct, [place] [address] [address] 02 Oct, 2016 Hypertension I10 ; Back pain M54.9 and E ncounter for immunization Z23 [place] [address] [address] Sep, [place] [address] [address] Sep, Back pain M54.9 [place] [address] [address] Sep, Back pain M54.9 [place] [address] [address] Aug, [place] [address] [address] Aug, Back pain M54.9 [facility] [address] [place] [id number] [place] [address] Aug, [facility] [address] [place] [id number] [place] [address] Aug, [facility] [address] [address] Aug, Back pain M54.9 [facility] [address] [address] Jul, [facility] [address] [address] Jul, Back pain M54.9 [facility] [address] [address] Jun, Back pain M54.9 ; Hypertension I10 ; Gen eralized anxiety disorder F41.1 and Encounter for immunization Z23 [facility] [address] [address] Jun, [facility] [address] [address] May, [facility] [address] [address] Apr, [facility] [address] [address] Apr, [facility] [address] [address] Mar, [facility] [address] [address] Mar, [facility] [address] [address] Mar, [facility] [address] [address] Feb, Back pain M54.[address] [facility] [address] [address] Feb, Back pain M54.9 [facility] [address] [id number] [place] [address] Dec, COPD (chronic obstructive pulmonary dise ase) J44.9 [facility] [address] [place] [id number] [place] [address] Dec, [facility] [address] [place] [id number] [place] [address] Dec, Back pain M54.9 [facility] [address] [place] [id number] [place] [address] Nov, Back pain M54.9 [facility] [address] [address] Nov, COPD (chronic obstructive pulmonary dise ase) J44.9 [facility] [address] [address] Nov, Hypertension I10 and Back pain M54.9 [facility] [address] [address] Oct, Hypertension I10 and Back pain M54.9 [facility] [address] [address] Oct, Back pain M54.9 [facility] [address] [place] [id number] [place] [address] Sep, Back pain M54.9 [facility] [address] [address] Sep, [facility] [address] [place] [id number] [place] [address] Sep, [facility] [address] [address] Sep, [facility] [address] [place] [id number] [place] [address] Sep, [facility] [address] [address] Aug, [facility] [address] [address] Aug, [facility] [address] [address] Aug, [facility] [address] [address] Aug, [facility] [address] [address] Aug, [facility] [address] [address] Jul, [facility] [address] [address] Jul, Back pain M54.9 ; Arthritis M19.90 ; Hyp ertension I10 and Encounter for immunization Z23 [facility] [address] [address] Jul, Generalized anxiety disorder F41.1 and D epressive disorder, not elsewhere classified F32.9 [facility] [address] [address] Jul, [facility] [address] [address] Jul, [facility] [address] [address] Jul, [facility] [address] [address] Jun, [facility] [address] [address] Jun, [facility] [address] [address] May, [facility] [address] [address] May, [facility] [address] [address] May, [facility] [address] [place] [id number] [place] [address] May, [facility] [address] [place] [id number] [place] [address] May, Benign essential hypertension 401.1 ; An xiety state, unspecified 300.00 ; Back pain 724.[address] [facility] [address] [place] [id number] [place] [address] May, [facility] [address] [place] [id number] [place] [address] Apr, [facility] [address] [address] Apr, [facility] [address] [place] [id number] [place] [address] Apr, [facility] [address] [place] [id number] [place] [address] Mar, [facility] [address] [place] [id number] [place] [address] Mar, [facility] [address] [place] [id number] [place] [address] Mar, [facility] [address] [address] Feb, High risk medication use V58.69 [facility] [address] [place] [id number] [place] [address] Feb, Benign essential hypertension 401.1 ; An xiety state, unspecified 300.00 and Chronic pain 338.29 [facility] [address] [place] [id number] [place] [address] Feb, [facility] [address] [address] January, [facility] [address] [place] [id number] [place] [address] January, [facility] [address] [address] January, [facility] [place] [facility] [address] [id number] [place] [address] January, [facility] [place] [facility] [address] [id number] [place] [address] Dec, [facility] [place] [facility] [address] [id number] [place] [address] Dec, [facility] [place] [facility] [address] [id number] [place] [address] Nov, [facility] [place] [facility] [address] [facility] [id number] [place] [address] Nov, [facility] [place] [facility] [address] [id number] [place] [address] Nov, [facility] [place] [facility] [address] [id number] [place] [address] Nov, [facility] [place] [facility] [address] [id number] [place] [address] Oct, [facility] [place] [facility] [address] [id number] [place] [address] Oct, [facility] [place] [facility] [address] [id number] [place] [address] Oct, [facility] [place] [facility] [address] [id number] [place] [address] Oct, [facility] [place] [facility] [address] [id number] [place] [address] Oct, [facility] [place] [facility] [address] [id number] [place] [address] Sep, [facility] [place] [facility] [address] [id number] [place] [address] Sep, [facility] [place] [facility] [address] [id number] [place] [address] Sep, [facility] [place] [facility] [address] [id number] [place] [address] Sep, [facility] [place] [facility] [address] [id number] [place] [address] Aug, [facility] [place] [facility] [address] [id number] [place] [address] Aug, [facility] [place] [facility] [address] [id number] [place] [address] Aug, [facility] [place] [facility] [address] [id number] [place] [address] Aug, [facility] [place] [facility] [address] [id number] [place] [address] Aug, [facility] [place] [facility] [address] [id number] [place] [address] Aug, [facility] [place] [facility] [address] [id number] [place] [address] Jul, [facility] [address] [id number] [place] [address] Jul, [facility] [place] [address] [id number] [place] [address] Jun, [facility] [place] [facility] [address] [id number] [place] [address] Jun, [facility] [place] [facility] [address] [id number] [place] [address] Jun, [facility] [address] [id number] [place] [address] Jun, [facility] [address] [id number] [place] [address] May, [facility] [address] [id number] [place] [address] May, [facility] [place] [id number] [place] [address] May, [facility] [address] [id number] [place] [address] May, [facility] [address] [id number] [place] [address] Apr, [facility] [address] [facility] [id number] [place] [address] Apr, [facility] [address] [facility] [id number] [place] [address] Apr, [facility] [address] [id number] [place] [address] Apr, [facility] [address] [id number] [place] [address] Apr, [facility] [address] [facility] [id number] [place] [address] Apr, [facility] [place] [address] [id number] [place] [address] Mar, [facility] [address] [id number] [place] [address] Mar, [facility] [address] [id number] [place] [address] Mar, [facility] [address] [id number] [place] [address] Mar, [facility] [address] [id number] [place] [address] Feb, [facility] [address] [id number] [place] [address] Feb, [facility] [address] [id number] [place] [address] Feb, [facility] [address] [id number] [place] [address] January, [facility] [address] [id number] [place] [address] January, [facility] [address] [id number] [place] [address] January, [facility] [address] [id number] [place] [address] January, [facility] [address] [id number] [place] [address] January, [facility] [address] [facility] [id number] [place] [address] January, [facility] [address] [facility] [id number] [place] [address] January, [facility] [address] [id number] [place] [address] January, [facility] [address] [id number] [place] [address] Dec, [facility] [address] [facility] [id number] [place] [address] Dec, [facility] [address] [id number] [place] [address] Dec, [facility] [address] [id number] [place] [address] Dec, [facility] [address] [id number] [place] [address] Dec, [facility] [address] [id number] [place] [address] Dec, [facility] [address] [id number] [place] [address] Dec, [facility] [address] [id number] [place] [address] Nov, [facility] [address] [id number] [place] [address] Nov, [facility] [address] [facility] [id number] [place] [address] Nov, [facility] [address] [id number] [place] [address] Nov, [facility] [address] [id number] [place] [address] Nov, [facility] [address] [id number] [place] [address] Nov, [facility] [address] [id number] [place] [address] 11 Nov, 2013 [facility] [address] [id number] [place] [address] 11 Nov, 2013 [facility] [address] [id number] [place] [address] 07 Nov, 2013 [facility] [address] [id number] [place] [address] 07 Nov, 2013 [facility] [address] [id number] [place] [address] 07 Nov, 2013 [facility] [address] [id number] [place] [address] 07 Nov, 2013 [facility] [address] [id number] [place] [address] 07 Oct, 2013 [facility] [address] [id number] [place] [address] 07 Oct, 2013 [facility] [address] [id number] [place] [address] Sep, [facility] [address] [id number] [place] [address] Sep, [facility] [address] [id number] [place] [address] Sep, [facility] [address] [id number] [place] [address] Sep, [facility] [address] [id number] [place] [address] Aug, [facility] [address] [id number] [place] [address] Aug, [facility] [address] [id number] [place] [address] 15 Jul, 2013 [facility] [address] [id number] [place] [address] 15 Jul, 2013 [facility] [address] [id number] [place] [address] 15 Jul, 2013 [facility] [address] [id number] [place] [address] 15 Jul, 2013 [facility] [address] [id number] [place] [address] Jun, [facility] [address] [id number] [place] [address] Jun, [facility] [address] [id number] [place] [address] Jun, [facility] [address] [facility] [id number] [place] [address] 18 Jun, 2013 [facility] [address] [id number] [place] [id number] 14 Jun, 2013 [facility] [place] [facility] [address] [id number] [place] [address] 14 Jun, 2013 [facility] [place] [facility] [address] [id number] [place] [address] 20 May, 2013 [facility] [place] [facility] [address] [id number] [place] [address] 18 May, 2013 [facility] [place] [facility] [address] [id number] [place] [address] May, [facility] [place] [facility] [address] [id number] [place] [address] Apr, [facility] [place] [facility] [address] [id number] [place] [address] Apr, [facility] [place] [facility] [address] [id number] [place] [address] Apr, [facility] [place] [facility] [address] [id number] [place] [address] Mar, [facility] [place] [facility] [address] [id number] [place] [address] Mar, [facility] [place] [facility] [address] [id number] [place] [address] Feb, [facility] [place] [facility] [address] [id number] [place] [address] Feb, [facility] [place] [facility] [address] [facility] [id number] [place] [address] Feb, [facility] [place] [facility] [address] [id number] [place] [address] January, [facility] [place] [facility] [address] [id number] [place] [address] January, [facility] [place] [facility] [address] [id number] [place] [address] January, [facility] [place] [facility] [address] [id number] [place] [address] Dec, [facility] [place] [facility] [address] [id number] [place] [address] Dec, [facility] [place] [facility] [address] [id number] [place] [address] Dec, [facility] [place] [facility] [address] [id number] [place] [address] Nov, [facility] [place] [facility] [address] [id number] [place] [address] Nov, [facility] [place] [facility] [address] [id number] [place] [address] Nov, [facility] [place] [facility] [address] [id number] [place] [address] 18 Oct, 2012 [facility] [place] [facility] [address] [id number] [place] [address] 14 Oct, 2012 [facility] [place] [facility] [address] [id number] [place] [address] Sep, [facility] [place] [facility] [address] [id number] [place] [address] Sep, [facility] [place] [facility] [address] [id number] [place] [address] Sep, [facility] [place] [facility] [address] [id number] [place] [address] Aug, [facility] [place] [facility] [address] [id number] [place] [address] Aug, [facility] [place] [facility] [address] [id number] [place] [address] Aug, [facility] [place] [facility] [address] [id number] [place] [address] Aug, [facility] [place] [facility] [id number] [place] [address] Aug, [facility] [place] [facility] [address] [id number] [place] [address] Jul, [facility] [place] [facility] [address] [id number] [place] [address] Jul, [facility] [place] [facility] [address] [id number] [place] [address] Jul, [facility] [place] [facility] [id number] [place] [address] Jul, [facility] [place] [facility] [id number] [place] [address] Jul, [facility] [place] [facility] [address] [id number] [place] [address] Jul, [facility] [place] [facility] [id number] [place] [address] Jun, [facility] [place] [facility] [address] [id number] [place] [address] Jun, [facility] [place] [facility] [address] [id number] [place] [address] Jun, [facility] [place] [facility] [address] [id number] [place] [address] Jun, [facility] [place] [facility] [id number] [place] [address] May, [facility] [place] [facility] [address] [id number] [place] [address] 06 May, 2012 [facility] [place] [facility] [address] [id number] [place] [address] 16 Apr, 2012 [facility] [place] [facility] [address] [facility] [id number] [place] [address] Apr, [facility] [place] [facility] [address] [id number] [place] [address] Apr, [facility] [place] [facility] [address] [id number] [place] [address] 17 Mar, 2012 [facility] [place] [facility] [address] [id number] [place] [address] Mar, [facility] [place] [facility] [address] [facility] [id number] [place] [address] Feb, [facility] [place] [facility] [address] [id number] [place] [address] January, [facility] [place] [facility] [address] [id number] [place] [address] January, [facility] [place] [facility] [address] [id number] [place] [address] Dec, [facility] [place] [facility] [address] [id number] [place] [address] Dec, [facility] [place] [facility] [address] [id number] [place] [address] Dec, [facility] [place] [facility] [address] [id number] [place] [address] Dec, [facility] [place] [facility] [address] [id number] [place] [address] Nov, [facility] [place] [facility] [address] [id number] [place] [address] Nov, [facility] [place] [facility] [address] [id number] [place] [address] Nov, [facility] [place] [facility] [address] [id number] [place] [address] Nov, [facility] [place] [facility] [address] [id number] [place] [address] Oct, [facility] [place] [facility] [address] [id number] [place] [address] 09 Oct, 2011 [facility] [place] [facility] [address] [id number] [place] [address] Sep, [facility] [place] [facility] [address] [id number] [place] [address] 30 Aug, 2011 [facility] [place] [facility] [id number] [place] [address] Aug, [facility] [place] [facility] [address] [id number] [place] [address] Aug, [facility] [place] [facility] [address] [id number] [place] [address] Jul, [facility] [place] [facility] [address] [id number] [place] [address] Jul, [facility] [place] [facility] [id number] [place] [address] Jul, [facility] [place] [facility] [id number] [place] [address] 20 Jun, 2011 [facility] [place] [facility] [address] [id number] [place] [address] 14 Jun, 2011 [facility] [place] [facility] [id number] [place] [address] 13 Jun, 2011 [facility] [place] [facility] [id number] [place] [address] 13 Jun, 2011 [facility] [place] [facility] [address] [id number] [place] [address] May, [facility] [place] [facility] [address] [id number] [place] [address] January, [facility] [place] [facility] [id number] [place] [address] 28 Aug, 2010 [facility] [place] [facility] [address] [id number] [place] [address] Aug, [facility] [place] [facility] [address] [id number] [place] [address] [address] [address] [facility] [address] [id number] [place] [address] Aug, [facility] [address] [id number] [place] [address] Jul, [facility] [address] [id number] [place] [address] Jul, [facility] [address] [id number] [place] [address] [address], [address] [facility] [id number] [place] [address] Jun, [facility] [address] [id number] [place] [address] 16 May, 2010 [facility] [address] [id number] [place] [address] January, IMMUNIZATIONS No Known Immunizations SOCIAL HISTORY [...]
--- OUTSIDE RECORDS SUMMARY | 2020-02-13 16:32 | XMS REPORT ---
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 9 Active 19196384 Problem COPD (chronic obstructive pulmonary disease) J44.9 Active 62191684 Problem Vitamin D deficiency E55.9 Active 83106014 ALLERGIES No Information ENCOUNTERS Encounter Location Date Diagnosis [place] [address] [address] Nov, [place] [address] [address] 24 Sep, 2019 Radiculopathy, lumbar region M54.16 [place] [address] [address] 15 Sep, 2019 Back pain M54.9 [place] [address] [address] 14 Sep, 2019 Generalized anxiety disorder F41.1 [place] [address] [address] 30 Aug, 2019 Radiculopathy, lumbar region M54.16 [place] [address] [address] Aug, Back pain M54.9 [place] [address] [address] Aug, Lumbar radiculopathy M54.16 ; Generalize d anxiety disorder F41.1 and Drug-induced constipation K59.03 [facility] [place] [address] [address] Jul, Radiculopathy, lumbar region M54.16 [facility] [place] [address] [address] Jul, [facility] [place] [address] [address] Jul, [place] [address] [address] Jul, Back pain M54.9 [facility] [place] [address] [address] Jul, Radiculopathy, lumbar region M54.16 [facility] [place] [address] [address] Jul, Radiculopathy, lumbar region M54.16 [place] [address] [address] Jun, Back pain M54.9 [facility] [place] [address] [address] Jun, [facility] [place] [address] [address] Jun, Radiculopathy, lumbar region M54.16 [facility] [place] [address] [address] Jun, [facility] [place] [address] [address] May, Back pain M54.9 [facility] [place] [address] [address] May, Cellulitis of other specified site L03.8 18 ; Dermatitis L30.9 and Lumbar radiculopathy M54.16 [facility] [place] [address] [address] May, [facility] [place] [address] [address] May, Back pain M54.9 [facility] [place] [address] [address] May, [facility] [place] [address] [address] 04 May, 2019 Back pain M54.9 [facility] [place] [address] [address] Apr, [facility] [place] [address] [address] Apr, Back pain M54.9 [facility] [place] [address] [address] Apr, Hyponatremia E87.1 [facility] [place] [address] [address] Apr, Hyponatremia E87.1 [facility] [place] [address] [address] Mar, Arthritis M19.90 ; Impacted cerumen of r ight ear H61.21 and Hypertension I10 [facility] [address] [id number] [id number] Mar, [facility] [place] [address] [address] Mar, Back pain M54.9 [facility] [place] [address] [address] Feb, Back pain M54.9 [facility] [place] [address] [address] Feb, [facility] [place] [address] [address] Feb, Dermatitis L30.9 [facility] [place] [address] [place] [id number] [place] [address] January, Dermatitis L30.9 [facility] [place] [address] [place] [id number] [place] [address] January, [facility] [place] [address] [place] [id number] [address] January, Back pain M54.9 [facility] [place] [address] [address] Dec, [facility] [place] [address] [address] Dec, Back pain M54.9 [facility] [place] [address] [address] Dec, Lumbar radiculopathy M54.16 ; Arthritis M19.90 and Dyshydrosis L30.1 [facility] [place] [address] [address] Nov, Back pain M54.9 [facility] [place] [address] [place] [id number] [place] [address] Nov, [facility] [place] [address] [address] Oct, [facility] [place] [address] [address] Oct, Back pain M54.9 [facility] [place] [address] [place] [id number] [place] [address] Oct, [facility] [place] [address] [address] Oct, [facility] [place] [address] [address] Sep, Back pain M54.9 [facility] [place] [address] [place] [id number] [place] [address] Sep, [facility] [place] [address] [address] Aug, Back pain M54.9 [facility] [place] [address] [address] Aug, Encounter for immunization Z23 ; Arthrit is M19.90 and Generalized anxiety disorder F41.1 [facility] [place] [address] [address] Aug, [facility] [place] [address] [address] Aug, [facility] [place] [address] [address] Jul, Back pain M54.9 [facility] [place] [address] [address] Jul, [facility] [place] [address] [address] Jul, [facility] [place] [address] [address] Jun, Back pain M54.9 [facility] [place] [address] [address] Jun, [facility] [place] [address] [address] Jun, Back pain M54.9 [facility] [place] [address] [address] May, Lumbar radiculopathy M54.16 ; Hypertensi on I10 and Generalized anxiety disorder F41.1 [facility] [place] [address] [address] May, Back pain M54.9 [facility] [place] [address] [address] Apr, [facility] [place] [address] [address] Apr, [facility] [place] [address] [address] Apr, Back pain M54.9 [facility] [place] [address] [address] Mar, Back pain M54.9 [facility] [place] [address] [address] Feb, [facility] [place] [address] [address] Feb, [facility] [place] [address] [address] Feb, [facility] [place] [address] [address] Feb, Back pain M54.9 [facility] [place] [address] [address] Feb, Back pain M54.9 ; Hypertension I10 ; Gen eralized anxiety disorder F41.1 and Venous insufficiency I87.2 [facility] [place] [address] [address] January, [facility] [place] [address] [address] January, Back pain M54.9 [facility] [place] [address] [address] Dec, [facility] [place] [address] [address] Dec, Back pain M54.9 [facility] [place] [address] [address] Nov, Back pain M54.9 [facility] [place] [address] [address] Nov, [facility] [place] [address] [address] 06 Nov, 2017 Lumbar radiculopathy M54.16 ; Hypertensi on I10 ; Arthritis M19.90 and Back pain M54.9 [facility] [place] [address] [address] 20 Oct, 2017 Back pain M54.9 [facility] [place] [address] [address] Oct, [facility] [place] [address] [address] Sep, Back pain M54.9 [facility] [place] [address] [address] Sep, [facility] [place] [address] [address] Aug, Back pain M54.9 [facility] [place] [address] [address] Jul, Back pain M54.9 [facility] [place] [address] [address] Jul, Encounter for immunization Z23 ; Back pa in M54.9 ; Hypertension I10 and Lumbar radiculopathy M54.16 [facility] [place] [address] [address] Jul, Back pain M54.9 [facility] [place] [address] [address] Jun, Vitamin D deficiency E55.9 [facility] [place] [address] [address] Jun, Back pain M54.9 [facility] [place] [address] [address] May, [facility] [place] [address] [address] May, [facility] [place] [address] [address] May, [facility] [place] [address] [address] May, Back pain M54.9 [facility] [place] [address] [address] 15 Apr, 2017 Back pain M54.9 ; Hypertension I10 ; Art hritis M19.90 and Generalized anxiety disorder F41.1 [place] [address] [address] 08 Apr, 2017 Back pain M54.9 [facility] [place] [address] [address] 12 Mar, 2017 Back pain M54.9 [facility] [place] [address] [address] 10 Mar, 2017 Vitamin D deficiency E55.9 [place] [address] [address] 15 Feb, 2017 Vitamin D deficiency E55.9 [place] [address] [address] 14 Feb, 2017 Vitamin D deficiency E55.9 [place] [address] [address] 13 Feb, 2017 Back pain M54.9 [place] [address] [address] January, Back pain M54.9 [place] [address] [address] January, Arthritis M19.90 [place] [address] [address] January, Vitamin D deficiency E55.9 and Arthritis M19.90 [place] [address] [address] Dec, Medicare annual wellness visit, initial Z00.00 and Encounter for immunization Z23 [place] [address] [address] Dec, Back pain M54.9 [place] [address] [address] Nov, Back pain M54.9 [facility] [place] [address] [address] Oct, Back pain M54.9 [facility] [place] [address] [address] Oct, COPD (chronic obstructive pulmonary dise ase) J44.9 [facility] [place] [address] [address] Oct, [facility] [place] [address] [address] Oct, Hypertension I10 ; Back pain M54.9 and E ncounter for immunization Z23 [facility] [place] [address] [address] Sep, [facility] [place] [address] [address] Sep, Back pain M54.9 [facility] [place] [address] [address] Sep, Back pain M54.9 [facility] [place] [address] [address] Aug, [facility] [place] [address] [address] Aug, Back pain M54.9 [facility] [place] [address] [address] Aug, [facility] [place] [address] [address] Aug, [facility] [place] [address] [address] Aug, Back pain M54.9 [facility] [place] [address] [address] Jul, [facility] [place] [address] [address] Jul, Back pain M54.9 [facility] [place] [address] [address] Jun, Back pain M54.9 ; Hypertension I10 ; Gen eralized anxiety disorder F41.1 and Encounter for immunization Z23 [facility] [place] [address] [address] Jun, [facility] [place] [address] [address] May, [facility] [place] [address] [address] Apr, [facility] [place] [address] [address] Apr, [facility] [place] [address] [address] Mar, [facility] [place] [address] [address] Mar, [facility] [place] [address] [address] Mar, [facility] [place] [address] [address] Feb, Back pain M54.9 and Hypertension I10 [facility] [place] [address] [address] Feb, Back pain M54.9 [facility] [place] [address] [address] Dec, COPD (chronic obstructive pulmonary dise ase) J44.9 [facility] [place] [address] [address] Dec, [facility] [place] [address] [address] 18 Dec, 2015 Back pain M54.9 [facility] [place] [address] [address] 24 Nov, 2015 Back pain M54.9 [facility] [place] [address] [address] Nov, COPD (chronic obstructive pulmonary dise ase) J44.9 [facility] [place] [address] [address] Nov, Hypertension I10 and Back pain M54.9 [facility] [place] [address] [place] [id number] [place] [address] Oct, Hypertension I10 and Back pain M54.9 [facility] [place] [address] [address] Oct, Back pain M54.9 [facility] [place] [address] [address] Sep, Back pain M54.9 [facility] [place] [address] [address] Sep, [facility] [place] [address] [address] Sep, [facility] [place] [address] [address] Sep, [facility] [place] [address] [address] Sep, [facility] [place] [address] [address] Aug, [facility] [place] [address] [address] Aug, [facility] [place] [address] [address] Aug, [facility] [place] [address] [address] Aug, [facility] [place] [address] [address] Aug, [facility] [place] [address] [address] Jul, [facility] [place] [address] [address] Jul, Back pain M54.9 ; Arthritis M19.90 ; Hyp ertension I10 and Encounter for immunization Z23 [facility] [place] [address] [address] Jul, Generalized anxiety disorder F41.1 and D epressive disorder, not elsewhere classified F32.9 [facility] [place] [address] [address] Jul, [facility] [place] [address] [address] Jul, [facility] [place] [address] [address] Jul, [facility] [place] [address] [address] Jun, [facility] [place] [address] [address] Jun, [facility] [place] [address] [address] May, [facility] [place] [address] [address] May, [facility] [place] [address] [address] May, [facility] [place] [address] [address] May, [facility] [place] [address] [address] 10 May, 2015 Benign essential hypertension 401.1 ; An xiety state, unspecified 300.00 ; Back pain 724.5 and Arthritis 716.90 [facility] [place] [address] [address] 08 May, 2015 [facility] [place] [address] [address] Apr, [facility] [place] [address] [address] Apr, [facility] [place] [id number] [place] [address] Apr, [facility] [place] [id number] [place] [address] Mar, [facility] [place] [id number] [place] [address] Mar, [facility] [place] [id number] [place] [address] Mar, [facility] [place] [id number] [place] [address] Feb, High risk medication use V58.69 [facility] [place] [id number] [place] [address] Feb, Benign essential hypertension 401.1 ; An xiety state, unspecified 300.00 and Chronic pain 338.29 [facility] [place] [id number] [place] [address] Feb, [facility] [place] [id number] [place] [address] January, [facility] [place] [id number] [place] [address] January, [facility] [place] [id number] [place] [address] January, [facility] [place] [id number] [place] [address] January, [facility] [place] [id number] [place] [address] Dec, [facility] [place] [id number] [place] [address] Dec, [facility] [place] [id number] [place] [address] Nov, [facility] [place] [id number] [place] [address] Nov, [facility] [place] [id number] [place] [address] Nov, [facility] [address] [id number] [facility] [place] [address] Nov, [facility] [address] [id number] [facility] [place] [address] Oct, [facility] [address] [id number] [facility] [place] [address] Oct, [facility] [address] [id number] [facility] [place] [address] Oct, [facility] [address] [id number] [facility] [place] [address] Oct, [facility] [address] [id number] [place] [address] Oct, [facility] [address] [id number] [place] [address] Sep, [facility] [address] [id number] [place] [address] Sep, [facility] [address] [id number] [place] [address] Sep, [facility] [address] [id number] [place] [address] Sep, [facility] [address] [id number] [place] [address] Aug, [facility] [address] [id number] [place] [address] Aug, [facility] [address] [id number] [place] [address] Aug, [facility] [address] [id number] [place] [address] Aug, [facility] [address] [id number] [place] [address] Aug, [facility] [address] [id number] [place] [address] Aug, [facility] [address] [facility] [id number] [place] [address] Jul, [facility] [address] [facility] [id number] [place] [address] Jul, [facility] [address] [facility] [id number] [place] [address] Jun, [facility] [address] [id number] [place] [address] Jun, [facility] [address] [id number] [place] [address] Jun, [facility] [address] [id number] [place] [address] Jun, [facility] [address] [id number] [place] [address] May, [facility] [address] [id number] [place] [address] May, [facility] [address] [id number] [place] [address] May, [facility] [address] [id number] [place] [address] May, [facility] [address] [id number] [place] [address] Apr, [facility] [address] [id number] [place] [address] Apr, [facility] [address] [id number] [place] [address] Apr, [facility] [address] [facility] [id number] [place] [address] Apr, [facility] [address] [id number] [place] [address] Apr, [facility] [address] [id number] [place] [address] Apr, [facility] [address] [id number] [place] [address] Mar, [facility] [address] [id number] [place] [address] Mar, [facility] [address] [id number] [place] [address] Mar, [facility] [address] [id number] [place] [address] Mar, [facility] [address] [id number] [place] [address] Feb, [facility] [address] [facility] [id number] [place] [address] Feb, [facility] [address] [id number] [place] [address] Feb, [facility] [address] [id number] [place] [address] January, [facility] [address] [id number] [place] [address] January, [facility] [address] [id number] [place] [address] January, [facility] [address] [id number] [place] [address] January, [facility] [address] [id number] [place] [address] January, [facility] [address] [id number] [place] [address] January, [facility] [address] [id number] [place] [address] January, [facility] [address] [id number] [place] [address] January, [facility] [address] [id number] [place] [address] Dec, [facility] [address] [id number] [place] [address] Dec, [facility] [address] [id number] [place] [address] Dec, [facility] [address] [facility] [id number] [facility] [place] [address] Dec, [facility] [address] [facility] [id number] [facility] [address] Dec, [facility] [address] [id number] [facility] [place] [address] Dec, [facility] [address] [facility] [id number] [facility] [place] [address] Dec, [facility] [address] [facility] [id number] [facility] [place] [address] Nov, [facility] [address] [id number] [place] [address] Nov, [facility] [address] [id number] [place] [address] Nov, [facility] [address] [id number] [place] [address] Nov, [facility] [address] [facility] [id number] [place] [address] Nov, [facility] [address] [id number] [place] [address] Nov, [facility] [address] [id number] [place] [address] Nov, [facility] [address] [id number] [place] [address] Nov, [facility] [address] [facility] [id number] [place] [address] Nov, [facility] [address] [id number] [place] [address] Nov, [facility] [address] [id number] [place] [address] Nov, [facility] [address] [id number] [place] [address] Nov, [facility] [address] [id number] [place] [address] 07 Oct, 2013 [facility] [address] [id number] [place] [address] 07 Oct, 2013 [facility] [address] [id number] [place] [address] Sep, [facility] [address] [id number] [place] [address] Sep, [facility] [address] [id number] [place] [address] Sep, [facility] [address] [id number] [place] [address] Sep, [facility] [address] [id number] [place] [address] Aug, [facility] [address] [id number] [place] [address] Aug, [facility] [address] [id number] [place] [address] 15 Jul, 2013 [facility] [address] [id number] [place] [address] 15 Jul, 2013 [facility] [address] [id number] [place] [address] 15 Jul, 2013 [facility] [address] [id number] [place] [address] 15 Jul, 2013 [facility] [address] [id number] [place] [address] 28 Jun, 2013 [facility] [address] [id number] [place] [address] 28 Jun, 2013 [facility] [id number] [place] [address] 18 Jun, 2013 [facility] [address] [id number] [place] [address] 18 Jun, 2013 [facility] [address] [id number] [place] [address] 14 Jun, 2013 [facility] [address] [id number] [place] [address] 14 Jun, 2013 [facility] [address] [id number] [place] [address] 20 May, 2013 [facility] [address] [id number] [place] [address] 18 May, 2013 [facility] [address] [id number] [place] [address] 16 May, 2013 [facility] [address] [facility] [id number] [place] [address] Apr, [facility] [address] [id number] [place] [address] Apr, [facility] [address] [id number] [place] [address] Apr, [facility] [address] [id number] [place] [address] Mar, [facility] [address] [id number] [place] [address] Mar, [facility] [address] [id number] [place] [address] Feb, [facility] [address] [id number] [place] [address] Feb, [facility] [address] [id number] [place] [address] Feb, [facility] [address] [id number] [place] [address] January, [facility] [address] [id number] [place] [address] January, [facility] [address] [id number] [place] [address] January, [facility] [address] [id number] [place] [address] Dec, [facility] [address] [id number] [place] [address] 11 Dec, 2012 [facility] [address] [id number] [place] [address] 08 Dec, 2012 [facility] [address] [id number] [place] [address] Nov, [facility] [address] [id number] [place] [address] 14 Nov, 2012 [facility] [address] [id number] [place] [address] Nov, [facility] [address] [id number] [place] [address] 18 Oct, 2012 [facility] [address] [id number] [place] [address] 14 Oct, 2012 [facility] [address] [id number] [place] [address] Sep, [facility] [address] [id number] [place] [address] Sep, [facility] [address] [id number] [place] [address] Sep, [facility] [address] [id number] [place] [address] Aug, [facility] [address] [id number] [place] [address] Aug, [facility] [address] [id number] [place] [address] Aug, [facility] [address] [id number] [place] [address] Aug, [facility] [address] [id number] [place] [address] Aug, [facility] [address] [id number] [place] [address] Jul, [facility] [address] [id number] [place] [address] Jul, [facility] [address] [id number] [place] [address] Jul, [facility] [address] [id number] [place] [address] Jul, [facility] [address] [id number] [place] [address] Jul, [facility] [address] [id number] [place] [address] Jul, [facility] [address] [id number] [place] [address] Jun, [facility] [address] [id number] [place] [address] Jun, [facility] [address] [id number] [place] [address] Jun, [facility] [id number] [place] [address] Jun, [facility] [address] [id number] [place] [address] May, [facility] [address] [id number] [place] [address] May, [facility] [address] [id number] [place] [address] Apr, [facility] [address] [id number] [place] [address] Apr, [facility] [address] [id number] [place] [address] Apr, [facility] [address] [id number] [place] [address] Mar, [facility] [id number] [place] [address] Mar, [facility] [address] [id number] [place] [address] Feb, [facility] [address] [id number] [place] [address] January, [facility] [address] [id number] [place] [address] January, [facility] [address] [id number] [facility] [place] [address] Dec, [facility] [address] [id number] [place] [address] Dec, [facility] [address] [id number] [place] [address] Dec, [facility] [address] [facility] [id number] [place] [address] Dec, [facility] [address] [id number] [place] [address] Nov, [facility] [address] [id number] [place] [address] Nov, [facility] [address] [id number] [place] [address] Nov, [facility] [address] [id number] [place] [address] Nov, [facility] [address] [id number] [place] [address] Oct, [facility] [address] [id number] [place] [address] Oct, [facility] [address] [id number] [place] [address] Sep, [facility] [address] [id number] [place] [address] Aug, [facility] [address] [id number] [place] [address] Aug, [facility] [address] [id number] [place] [address] Aug, [facility] [address] [id number] [place] [address] Jul, [facility] [address] [id number] [place] [address] 11 Jul, 2011 [facility] [address] [id number] [place] [address] 11 Jul, 2011 [facility] [address] [id number] [place] [address] 20 Jun, 2011 [facility] [address] [id number] [place] [address] 14 Jun, 2011 [facility] [address] [id number] [place] [address] 13 Jun, 2011 [facility] [address] [id number] [place] [address] 13 Jun, 2011 [facility] [address] [id number] [place] [address] 19 May, 2011 [facility] [address] [id number] [place] [address] January, [facility] [address] [id number] [place] [address] 28 Aug, 2010 [facility] [address] [id number] [place] [address] 27 Aug, 2010 [facility] [address] [id number] [place] [address] 10 Aug, 2010 [facility] [address] [id number] [place] [address] 10 Aug, 2010 [facility] [address] [id number] [place] [address] 11 Jul, 2010 [facility] [address] [id number] [place] [address] 11 Jul, 2010 [facility] [address] [id number] [place] [address] 15 Jun, 2010 [facility] [address] [id number] [place] [address] 15 Jun, 2010 [facility] [address] [id number] [place] [address] 16 May, 2010 [facility] [place] [address] [facility] [id number] [place] [address] January, IMMUNIZATIONS No Known Immunizations SOCIAL HISTORY [...]
--- OUTSIDE RECORDS SUMMARY | 2020-02-13 16:32 | XMS REPORT ---
Author Author Cami GLEZ Organization [facility] Address [address] [place] [address] Care Team Providers Care Hotel Room Attendant Name Role Phone DON GLEZ Unavailable PROBLEMS Type Condition ICD9-CM Code [id number] Code Onset Dates Condition S tatus SNOMED Code Problem Arthritis M19.90 Active 0208524 Problem Back pain M54.9 Active 426319777 Problem Hypertension I10 Active 1229259 3 Problem Lumbar radiculopathy M54.16 Active 237635394 Problem Venous insufficiency I87.2 Active 11701212 Problem Generalized anxiety disorder F41.1 A ctive 67123685 Problem Depressive disorder, not elsewhere classified F32. 9 Active 72246260 Problem COPD (chronic obstructive pulmonary disease) J44.9 Active 23892843 Problem Vitamin D deficiency E55.9 Active 32409600 ALLERGIES No Information ENCOUNTERS Encounter Location Date Diagnosis [place] [address] [address] Nov, [place] [address] [address] 15 Sep, 2019 Back pain M54.9 [place] [address] [address] 14 Sep, 2019 Generalized anxiety disorder F41.1 [place] [address] [address] 30 Aug, 2019 Radiculopathy, lumbar region M54.16 [place] [address] [address] 18 Aug, 2019 Back pain M54.9 [place] [address] [address] 17 Aug, 2019 Lumbar radiculopathy M54.16 ; Generalize d anxiety disorder F41.1 and Drug-induced constipation K59.03 [facility] [address] [address] Jul, Radiculopathy, lumbar region M54.16 [facility] [address] [address] Jul, [facility] [address] [address] Jul, [facility] [address] [address] Jul, Back pain M54.9 [facility] [address] [address] Jul, Radiculopathy, lumbar region M54.16 [facility] [address] [address] Jul, Radiculopathy, lumbar region M54.16 [facility] [address] [address] Jun, Back pain M54.9 [facility] [address] [address] Jun, [facility] [address] [address] Jun, Radiculopathy, lumbar region M54.16 [facility] [address] [address] Jun, [facility] [address] [address] May, Back pain M54.9 [facility] [address] [address] May, Cellulitis of other specified site L03.8 18 ; Dermatitis L30.9 and Lumbar radiculopathy M54.16 [facility] [address] [address] May, [facility] [address] [address] 27 May, 2019 Back pain M54.9 [facility] [address] [address] 05 May, 2019 [facility] [address] [address] May, Back pain M54.9 [facility] [address] [address] Apr, [facility] [address] [address] Apr, Back pain M54.9 [facility] [address] [address] Apr, Hyponatremia E87.1 [place] [address] [address] Apr, Hyponatremia E87.1 [facility] [address] [address] Mar, Arthritis M19.90 ; Impacted cerumen of r ight ear H61.21 and Hypertension I10 [facility] [id number] [place] [id number] Mar, [facility] [address] [address] Mar, Back pain M54.9 [facility] [address] [address] Feb, Back pain M54.9 [facility] [address] [address] Feb, [facility] [address] [address] Feb, Dermatitis L30.9 [facility] [address] [address] January, Dermatitis L30.9 [facility] [address] [place] [id number] [place] [address] January, [facility] [address] [place] [id number] [place] [address] January, Back pain M54.9 [facility] [address] [place] [id number] [place] [address] Dec, [facility] [address] [address] Dec, Back pain M54.9 [facility] [address] [place] [id number] [place] [address] Dec, Lumbar radiculopathy M54.16 ; Arthritis M19.90 and Dyshydrosis L30.1 [facility] [address] [place] [id number] [place] [address] Nov, Back pain M54.9 [facility] [address] [address] Nov, [facility] [address] [address] Oct, [facility] [address] [address] Oct, Back pain M54.9 [facility] [address] [place] [id number] [place] [address] Oct, [facility] [address] [address] Oct, [facility] [address] [place] [id number] [place] [address] Sep, Back pain M54.9 [facility] [address] [place] [id number] [place] [address] Sep, [facility] [address] [address] Aug, Back pain M54.9 [facility] [address] [address] 14 Aug, 2018 Encounter for immunization Z23 ; Arthrit is M19.90 and Generalized anxiety disorder F41.1 [facility] [address] [address] 14 Aug, 2018 [facility] [address] [address] 07 Aug, 2018 [facility] [address] [address] Jul, Back pain M54.9 [facility] [address] [address] Jul, [facility] [address] [address] Jul, [facility] [address] [address] Jun, Back pain M54.9 [facility] [address] [address] Jun, [facility] [address] [address] Jun, Back pain M54.9 [facility] [address] [address] 11 May, 2018 Lumbar radiculopathy M54.16 ; Hypertensi on I10 and Generalized anxiety disorder F41.1 [facility] [address] [address] 06 May, 2018 Back pain M54.9 [facility] [address] [address] Apr, [facility] [address] [address] Apr, [facility] [address] [address] Apr, Back pain M54.9 [facility] [address] [address] Mar, Back pain M54.9 [facility] [address] [address] Feb, [facility] [address] [address] Feb, [facility] [address] [address] 15 Feb, 2018 [facility] [address] [address] Feb, Back pain M54.9 [facility] [address] [address] Feb, Back pain M54.9 ; Hypertension I10 ; Gen eralized anxiety disorder F41.1 and Venous insufficiency I87.2 [facility] [address] [address] January, [facility] [address] [address] January, Back pain M54.9 [facility] [address] [address] Dec, [facility] [address] [address] Dec, Back pain M54.9 [facility] [address] [address] Nov, Back pain M54.9 [facility] [address] [address] Nov, [facility] [address] [address] Nov, Lumbar radiculopathy M54.16 ; Hypertensi on I10 ; Arthritis M19.90 and Back pain M54.9 [facility] [address] [address] Oct, Back pain M54.9 [facility] [address] [address] 15 Oct, 2017 [facility] [address] [address] Sep, Back pain M54.9 [facility] [address] [address] Sep, [facility] [address] [address] Aug, Back pain M54.9 [facility] [address] [address] Jul, Back pain M54.9 [place] [address] [address] Jul, Encounter for immunization Z23 ; Back pa in M54.9 ; Hypertension I10 and Lumbar radiculopathy M54.16 [place] [address] [address] Jul, Back pain M54.9 [place] [address] [address] Jun, Vitamin D deficiency E55.9 [place] [address] [address] Jun, Back pain M54.9 [facility] [address] [address] May, [facility] [address] [address] 08 May, 2017 [facility] [address] [address] May, [facility] [address] [address] May, Back pain M54.9 [facility] [address] [address] Apr, Back pain M54.9 ; Hypertension I10 ; Art hritis M19.90 and Generalized anxiety disorder F41.1 [facility] [address] [place] [id number] [place] [address] 08 Apr, 2017 Back pain M54.9 [facility] [address] [address] 12 Mar, 2017 Back pain M54.9 [facility] [address] [address] 10 Mar, 2017 Vitamin D deficiency E55.9 [facility] [address] [address] 15 Feb, 2017 Vitamin D deficiency E55.9 [facility] [address] [address] 14 Feb, 2017 Vitamin D deficiency E55.9 [facility] [address] [address] 13 Feb, 2017 Back pain M54.9 [facility] [address] [address] January, Back pain M54.9 [facility] [address] [address] January, Arthritis M19.90 [facility] [address] [address] January, Vitamin D deficiency E55.9 and Arthritis M19.90 [facility] [address] [address] Dec, Medicare annual wellness visit, initial Z00.00 and Encounter for immunization Z23 [facility] [address] [place] [id number] [place] [address] Dec, Back pain M54.9 [facility] [address] [address] Nov, Back pain M54.9 [facility] [address] [address] Oct, Back pain M54.9 [facility] [address] [address] 14 Oct, 2016 COPD (chronic obstructive pulmonary dise ase) J44.9 [facility] [address] [address] 14 Oct, 2016 [facility] [address] [address] 02 Oct, 2016 Hypertension I10 ; Back pain M54.9 and E ncounter for immunization Z23 [facility] [address] [address] Sep, [facility] [address] [address] Sep, Back pain M54.9 [facility] [address] [address] Sep, Back pain M54.9 [facility] [address] [address] Aug, [facility] [address] [address] Aug, Back pain M54.9 [facility] [address] [address] Aug, [facility] [address] [address] Aug, [facility] [address] [address] Aug, Back pain M54.9 [facility] [address] [address] Jul, [facility] [address] [address] Jul, Back pain M54.9 [facility] [address] [address] Jun, Back pain M54.9 ; Hypertension I10 ; Gen eralized anxiety disorder F41.1 and Encounter for immunization Z23 [facility] [address] [place] [id number] [place] [address] Jun, [facility] [address] [address] May, [facility] [address] [address] Apr, [facility] [address] [address] Apr, [facility] [address] [address] Mar, [facility] [address] [address] Mar, [facility] [address] [address] Mar, [facility] [address] [address] Feb, Back pain M54.9 and Hypertension I10 [facility] [address] [address] Feb, Back pain M54.9 [facility] [address] [address] Dec, COPD (chronic obstructive pulmonary dise ase) J44.9 [facility] [address] [address] Dec, [facility] [address] [address] 18 Dec, 2015 Back pain M54.9 [facility] [address] [address] 24 Nov, 2015 Back pain M54.9 [facility] [address] [address] 14 Nov, 2015 COPD (chronic obstructive pulmonary dise ase) J44.9 [facility] [address] [address] Nov, Hypertension I10 and Back pain M54.9 [facility] [address] [address] Oct, Hypertension I10 and Back pain M54.9 [facility] [address] [address] Oct, Back pain M54.9 [facility] [address] [address] Sep, Back pain M54.9 [facility] [address] [address] Sep, [facility] [address] [address] Sep, [facility] [address] [address] Sep, [facility] [address] [address] Sep, [facility] [address] [address] Aug, [facility] [address] [address] Aug, [facility] [address] [address] Aug, [facility] [address] [address] Aug, [facility] [address] [address] Aug, [facility] [address] [address] Jul, [facility] [address] [address] Jul, Back pain M54.9 ; Arthritis M19.90 ; Hyp ertension I10 and Encounter for immunization Z23 [facility] [address] [address] Jul, Generalized anxiety disorder F41.1 and D epressive disorder, not elsewhere classified F32.9 [facility] [address] [address] Jul, [facility] [address] [address] Jul, [facility] [address] [address] Jul, [facility] [address] [address] Jun, [facility] [address] [address] Jun, [facility] [address] [address] May, [facility] [address] [address] May, [facility] [address] [address] May, [facility] [address] [address] May, [facility] [address] [address] 10 May, 2015 Benign essential hypertension 401.1 ; An xiety state, unspecified 300.00 ; Back pain 724.5 and Arthritis 716.90 [facility] [address] [address] 08 May, 2015 [facility] [address] [address] Apr, [facility] [address] [address] Apr, [facility] [address] [address] Apr, [facility] [address] [address] Mar, [facility] [id number] [place] [address] Mar, [facility] [address] [id number] [place] [address] Mar, [facility] [address] [place] [id number] [place] [address] Feb, High risk medication use V58.69 [facility] [address] [place] [id number] [place] [address] Feb, Benign essential hypertension 401.1 ; An xiety state, unspecified 300.00 and Chronic pain 338.29 [facility] [address] [place] [id number] [place] [address] Feb, [facility] [id number] [place] [address] January, [facility] [id number] [place] [address] January, [facility] [id number] [place] [address] January, [facility] [address] [place] [id number] [place] [address] January, [facility] [id number] [place] [address] Dec, [facility] [id number] [place] [address] Dec, [facility] [id number] [place] [address] Nov, [facility] [id number] [place] [address] Nov, [facility] [id number] [place] [address] Nov, [facility] [id number] [place] [address] Nov, [facility] [address] [id number] [place] [address] Oct, 2014 [facility] [address] [id number] [place] [address] Oct, 2014 [facility] [address] [id number] [place] [address] Oct, [facility] [address] [id number] [place] [address] Oct, [facility] [address] [id number] [place] [address] Oct, [facility] [id number] [place] [address] Sep, [facility] [id number] [place] [address] Sep, [facility] [id number] [place] [address] Sep, [facility] [address] [id number] [place] [address] Sep, [facility] [id number] [place] [address] Aug, [facility] [address] [id number] [place] [address] Aug, [facility] [id number] [place] [address] Aug, [facility] [address] [id number] [place] [address] Aug, [facility] [address] [id number] [place] [address] Aug, [facility] [address] [id number] [place] [address] Aug, [facility] [address] [id number] [place] [address] Jul, [facility] [address] [id number] [place] [address] Jul, [facility] [address] [facility] [id number] [place] [address] Jun, [facility] [address] [facility] [id number] [place] [address] Jun, [facility] [address] [id number] [place] [address] Jun, [facility] [address] [id number] [place] [address] Jun, [facility] [address] [facility] [id number] [place] [address] May, [facility] [address] [id number] [place] [address] May, [facility] [address] [id number] [place] [address] May, [facility] [address] [id number] [place] [address] May, [facility] [address] [id number] [place] [address] Apr, [facility] [address] [id number] [place] [address] Apr, [facility] [address] [id number] [place] [address] Apr, [facility] [address] [id number] [place] [address] Apr, [facility] [address] [id number] [place] [address] Apr, [facility] [address] [id number] [place] [address] Apr, [facility] [address] [id number] [place] [address] Mar, [facility] [address] [id number] [place] [address] Mar, [facility] [address] [id number] [place] [address] Mar, [facility] [address] [facility] [id number] [place] [address] Mar, [facility] [address] [id number] [place] [address] Feb, [facility] [address] [id number] [place] [address] Feb, [facility] [address] [id number] [place] [address] Feb, [facility] [address] [id number] [place] [address] January, [facility] [address] [id number] [place] [address] January, [facility] [address] [id number] [place] [address] January, [facility] [address] [id number] [place] [address] January, [facility] [address] [id number] [place] [address] January, [facility] [address] [id number] [place] [address] January, [facility] [address] [id number] [place] [address] January, [facility] [address] [id number] [place] [address] January, [facility] [address] [id number] [place] [address] Dec, [facility] [id number] [place] [address] Dec, [facility] [address] [id number] [place] [address] Dec, [facility] [address] [id number] [place] [address] Dec, [facility] [address] [id number] [place] [address] Dec, [facility] [address] [id number] [place] [address] Dec, [facility] [address] [id number] [place] [address] Dec, [facility] [address] [id number] [place] [address] Nov, [facility] [address] [id number] [place] [address] Nov, [facility] [address] [id number] [place] [address] Nov, [facility] [address] [id number] [place] [address] Nov, [facility] [address] [id number] [place] [address] Nov, [facility] [address] [id number] [place] [address] Nov, [facility] [address] [id number] [place] [address] Nov, [facility] [address] [id number] [place] [address] Nov, [facility] [address] [id number] [place] [address] Nov, [facility] [address] [id number] [place] [address] Nov, [facility] [address] [id number] [place] [address] Nov, [facility] [address] [id number] [place] [address] Nov, [facility] [address] [id number] [place] [address] 07 Oct, 2013 [facility] [address] [id number] [place] [address] 07 Oct, 2013 [facility] [address] [id number] [place] [address] Sep, [facility] [address] [id number] [place] [address] Sep, [facility] [address] [id number] [place] [address] Sep, [facility] [address] [id number] [place] [address] Sep, [facility] [address] [id number] [place] [address] Aug, [facility] [address] [id number] [place] [address] Aug, [facility] [address] [id number] [place] [address] 15 Jul, 2013 [facility] [facility] [address] [id number] [place] [address] 15 Jul, 2013 [facility] [address] [id number] [place] [address] 15 Jul, 2013 [facility] [address] [id number] [place] [address] 15 Jul, 2013 [facility] [address] [id number] [place] [address] 28 Jun, 2013 [facility] [address] [id number] [place] [address] 28 Jun, 2013 [facility] [address] [id number] [place] [address] 18 Jun, 2013 [facility] [address] [id number] [place] [address] 18 Jun, 2013 [facility] [address] [id number] [place] [address] 14 Jun, 2013 [facility] [address] [id number] [place] [address] 14 Jun, 2013 [facility] [address] [facility] [id number] [facility] [address] 20 May, 2013 [facility] [address] [id number] [place] [address] 18 May, 2013 [facility] [address] [id number] [place] [address] 16 May, 2013 [facility] [address] [id number] [place] [address] Apr, [facility] [address] [id number] [place] [address] Apr, [facility] [address] [id number] [place] [address] Apr, [facility] [address] [id number] [place] [address] Mar, [facility] [address] [id number] [place] [address] Mar, [facility] [address] [id number] [place] [address] Feb, [facility] [address] [id number] [place] [address] Feb, [facility] [address] [id number] [place] [address] Feb, [facility] [address] [id number] [place] [address] January, [facility] [address] [id number] [place] [address] January, [facility] [address] [id number] [place] [address] January, [facility] [address] [id number] [place] [address] 15 Dec, 2012 [facility] [address] [id number] [place] [address] Dec, [facility] [address] [id number] [place] [address] 08 Dec, 2012 [facility] [address] [id number] [place] [address] 19 Nov, 2012 [facility] [address] [id number] [place] [address] 14 Nov, 2012 [facility] [address] [id number] [place] [address] 13 Nov, 2012 [facility] [address] [id number] [place] [address] 18 Oct, 2012 [facility] [address] [id number] [place] [address] 14 Oct, 2012 [facility] [address] [id number] [place] [address] Sep, [facility] [address] [id number] [place] [address] Sep, [facility] [id number] [place] [address] Sep, [facility] [address] [id number] [place] [address] Aug, [facility] [id number] [place] [address] Aug, [facility] [address] [id number] [place] [address] Aug, [facility] [id number] [place] [address] Aug, [facility] [address] [id number] [place] [address] Aug, [facility] [address] [id number] [place] [address] Jul, [facility] [address] [id number] [place] [address] Jul, [facility] [id number] [place] [address] Jul, [facility] [address] [id number] [place] [address] Jul, [facility] [address] [id number] [place] [address] Jul, [facility] [address] [id number] [place] [address] Jul, [facility] [address] [id number] [place] [address] Jun, [facility] [address] [id number] [place] [address] Jun, [facility] [address] [id number] [place] [address] Jun, [facility] [address] [id number] [place] [address] Jun, [facility] [address] [id number] [place] [address] May, [facility] [address] [id number] [place] [address] May, [facility] [address] [id number] [place] [address] Apr, [facility] [address] [id number] [place] [address] 15 Apr, 2012 [facility] [address] [id number] [place] [address] 14 Apr, 2012 [facility] [address] [id number] [place] [address] Mar, [facility] [address] [id number] [place] [address] Mar, [facility] [address] [id number] [place] [address] Feb, [facility] [address] [id number] [place] [address] January, [facility] [address] [id number] [place] [address] January, [facility] [address] [id number] [place] [address] 27 Dec, 2011 [facility] [address] [id number] [place] [address] Dec, [facility] [address] [id number] [place] [address] Dec, [facility] [address] [id number] [place] [address] Dec, [facility] [address] [id number] [place] [address] Nov, [facility] [address] [id number] [place] [address] Nov, [facility] [address] [id number] [place] [address] Nov, [facility] [address] [id number] [place] [address] Nov, [facility] [address] [id number] [place] [address] Oct, [facility] [address] [id number] [place] [address] Oct, [facility] [address] [id number] [place] [address] Sep, [facility] [address] [id number] [place] [address] Aug, [facility] [address] [id number] [place] [address] Aug, [facility] [address] [id number] [place] [address] Aug, [facility] [address] [id number] [place] [address] 29 Jul, 2011 [facility] [address] [id number] [place] [address] Jul, [facility] [address] [id number] [place] [address] 11 Jul, 2011 [facility] [address] [id number] [place] [address] 20 Jun, 2011 [facility] [address] [id number] [place] [address] 14 Jun, 2011 [facility] [address] [id number] [place] [address] 13 Jun, 2011 [facility] [address] [id number] [place] [address] 13 Jun, 2011 [facility] [address] [id number] [place] [address] 19 May, 2011 [facility] [address] [id number] [place] [address] 17 Jan, 2011 [facility] [address] [id number] [place] [address] 28 Aug, 2010 [facility] [address] [id number] [place] [address] 27 Aug, 2010 [facility] [address] [id number] [place] [address] Aug, [facility] [address] [id number] [place] [address] 10 Aug, 2010 [facility] [address] [id number] [place] [address] Jul, [facility] [address] [id number] [place] [address] Jul, [facility] [address] [id number] [place] [address] 15 Jun, 2010 [facility] [address] [id number] [place] [address] 15 Jun, 2010 [facility] [address] [id number] [place] [address] 16 May, 2010 [facility] [address] [id number] [place] [address] 12 Jan, 2009 IMMUNIZATIONS No Known Immunizations [...]
--- OUTSIDE RECORDS SUMMARY | 2020-02-13 16:32 | XMS REPORT ---
Author Author Cami GLEZ Organization [facility] Address [address] [place] [address] Care Team Providers Care Distribution Superintendent Name Role Phone DON GLEZ Unavailable PROBLEMS Type Condition ICD9-CM Code [id number] Code Onset Dates Condition S tatus SNOMED Code Problem Arthritis M19.90 Active 7623259 Problem Back pain M54.9 Active 141465040 Problem Hypertension I10 Active 7120688 3 Problem Lumbar radiculopathy M54.16 Active 463669388 Problem Venous insufficiency I87.2 Active 22761939 Problem Generalized anxiety disorder F41.1 A ctive 59368145 Problem Depressive disorder, not elsewhere classified F32. 9 Active 78147600 Problem COPD (chronic obstructive pulmonary disease) J44.9 Active 08889195 Problem Vitamin D deficiency E55.9 Active 72142102 ALLERGIES No Information ENCOUNTERS Encounter Location Date Diagnosis [place] [address] [address] Nov, [place] [address] [address] Aug, Radiculopathy, lumbar region M54.16 [place] [address] [address] Aug, Back pain M54.9 [place] [address] [address] Aug, Lumbar radiculopathy M54.16 ; Generalize d anxiety disorder F41.1 and Drug-induced constipation K59.03 [place] [address] [address] Jul, Radiculopathy, lumbar region M54.16 [place] [address] [address] Jul, [facility] [address] [address] Jul, [facility] [address] [address] Jul, Back pain M54.9 [facility] [address] [address] Jul, Radiculopathy, lumbar region M54.16 [facility] [address] [address] Jul, Radiculopathy, lumbar region M54.16 [facility] [address] [address] Jun, Back pain M54.9 [facility] [address] [address] Jun, [facility] [address] [address] Jun, Radiculopathy, lumbar region M54.16 [facility] [address] [address] Jun, [facility] [address] [address] May, Back pain M54.9 [facility] [address] [address] May, Cellulitis of other specified site L03.8 18 ; Dermatitis L30.9 and Lumbar radiculopathy M54.16 [facility] [address] [address] May, [facility] [address] [address] May, Back pain M54.9 [facility] [address] [address] May, [facility] [address] [address] May, Back pain M54.9 [facility] [address] [address] Apr, [facility] [address] [address] Apr, Back pain M54.9 [facility] [address] [address] Apr, Hyponatremia E87.1 [facility] [address] [address] Apr, Hyponatremia E87.1 [facility] [address] [address] Mar, Arthritis M19.90 ; Impacted cerumen of r ight ear H61.21 and Hypertension I10 [facility] [id number] [place] [id number] Mar, [facility] [address] [address] Mar, Back pain M54.9 [facility] [address] [address] Feb, Back pain M54.9 [facility] [address] [address] Feb, [facility] [address] [address] Feb, Dermatitis L30.9 [facility] [address] [address] January, Dermatitis L30.9 [facility] [address] [address] January, [facility] [address] [address] January, Back pain M54.9 [facility] [address] [address] 18 Dec, 2018 [facility] [address] [address] Dec, Back pain M54.9 [facility] [address] [address] 09 Dec, 2018 Lumbar radiculopathy M54.16 ; Arthritis M19.90 and Dyshydrosis L30.1 [facility] [address] [address] Nov, Back pain M54.9 [facility] [address] [address] Nov, [facility] [address] [address] Oct, [facility] [address] [address] Oct, Back pain M54.9 [facility] [address] [address] Oct, [facility] [address] [address] Oct, [facility] [address] [address] Sep, Back pain M54.9 [facility] [address] [address] Sep, [facility] [address] [address] Aug, Back pain M54.9 [facility] [address] [address] Aug, Encounter for immunization Z23 ; Arthrit is M19.90 and Generalized anxiety disorder F41.1 [facility] [address] [address] Aug, [facility] [address] [address] Aug, [facility] [address] [address] Jul, Back pain M54.9 [facility] [address] [address] Jul, [facility] [address] [address] Jul, [facility] [address] [address] Jun, Back pain M54.9 [facility] [address] [address] Jun, [facility] [address] [address] Jun, Back pain M54.9 [facility] [address] [address] May, Lumbar radiculopathy M54.16 ; Hypertensi on I10 and Generalized anxiety disorder F41.1 [facility] [address] [address] May, Back pain M54.9 [facility] [address] [address] Apr, [facility] [address] [address] Apr, [facility] [address] [address] Apr, Back pain M54.9 [facility] [address] [address] Mar, Back pain M54.9 [facility] [address] [address] Feb, [facility] [address] [address] Feb, [facility] [address] [address] Feb, [facility] [address] [address] 14 Feb, 2018 Back pain M54.9 [facility] [address] [address] Feb, Back pain M54.9 ; Hypertension I10 ; Gen eralized anxiety disorder F41.1 and Venous insufficiency I87.2 [facility] [address] [address] January, [facility] [address] [address] January, Back pain M54.9 [facility] [address] [address] Dec, [facility] [address] [address] Dec, Back pain M54.9 [facility] [address] [address] Nov, Back pain M54.9 [facility] [address] [address] Nov, [facility] [address] [address] Nov, Lumbar radiculopathy M54.16 ; Hypertensi on I10 ; Arthritis M19.90 and Back pain M54.9 [facility] [address] [address] Oct, Back pain M54.9 [facility] [address] [address] Oct, [facility] [address] [address] Sep, Back pain M54.9 [facility] [address] [address] Sep, [facility] [address] [address] Aug, Back pain M54.9 [facility] [address] [address] 30 Jul, 2017 Back pain M54.9 [facility] [address] [address] 09 Jul, 2017 Encounter for immunization Z23 ; Back pa in M54.9 ; Hypertension I10 and Lumbar radiculopathy M54.16 [place] [address] [address] Jul, Back pain M54.9 [facility] [address] [address] 18 Jun, 2017 Vitamin D deficiency E55.9 [facility] [address] [address] 04 Jun, 2017 Back pain M54.9 [facility] [address] [address] 20 May, 2017 [facility] [address] [address] 08 May, 2017 [facility] [address] [address] 08 May, 2017 [facility] [address] [address] May, Back pain M54.9 [facility] [address] [address] 15 Apr, 2017 Back pain M54.9 ; Hypertension I10 ; Art hritis M19.90 and Generalized anxiety disorder F41.1 [facility] [address] [address] 08 Apr, 2017 Back pain M54.9 [facility] [address] [address] Mar, Back pain M54.9 [facility] [address] [place] [id number] [place] [address] 10 Mar, 2017 Vitamin D deficiency E55.9 [facility] [address] [place] [id number] [place] [address] 15 Feb, 2017 Vitamin D deficiency E55.9 [facility] [address] [place] [id number] [place] [address] 14 Feb, 2017 Vitamin D deficiency E55.9 [facility] [address] [place] [id number] [place] [address] 13 Feb, 2017 Back pain M54.9 [facility] [address] [address] 19 Jan, 2017 Back pain M54.9 [facility] [address] [address] January, Arthritis M19.90 [facility] [address] [address] January, Vitamin D deficiency E55.9 and Arthritis M19.90 [facility] [address] [address] Dec, Medicare annual wellness visit, initial Z00.00 and Encounter for immunization Z23 [place] [address] [address] Dec, Back pain M54.9 [facility] [address] [address] Nov, Back pain M54.9 [facility] [address] [address] 24 Oct, 2016 Back pain M54.9 [facility] [address] [address] 14 Oct, 2016 COPD (chronic obstructive pulmonary dise ase) J44.9 [facility] [address] [address] 14 Oct, 2016 [facility] [address] [address] Oct, Hypertension I10 ; Back pain M54.9 and E ncounter for immunization Z23 [facility] [address] [address] Sep, [facility] [address] [address] Sep, Back pain M54.9 [facility] [address] [address] Sep, Back pain M54.9 [facility] [address] [address] Aug, [facility] [address] [address] Aug, Back pain M54.9 [facility] [address] [address] Aug, [facility] [address] [address] Aug, [facility] [address] [address] Aug, Back pain M54.9 [facility] [address] [address] Jul, [facility] [address] [address] Jul, Back pain M54.9 [facility] [address] [address] Jun, Back pain M54.9 ; Hypertension I10 ; Gen eralized anxiety disorder F41.1 and Encounter for immunization Z23 [facility] [address] [address] Jun, [facility] [address] [address] May, [facility] [address] [address] Apr, [facility] [address] [address] Apr, [facility] [address] [address] Mar, [facility] [address] [address] Mar, [facility] [address] [address] Mar, [facility] [address] [address] Feb, Back pain M54.9 and Hypertension I10 [facility] [address] [address] Feb, Back pain M54.9 [facility] [address] [address] Dec, COPD (chronic obstructive pulmonary dise ase) J44.9 [facility] [address] [address] Dec, [facility] [address] [address] Dec, Back pain M54.9 [facility] [address] [address] 24 Nov, 2015 Back pain M54.9 [facility] [address] [address] 14 Nov, 2015 COPD (chronic obstructive pulmonary dise ase) J44.9 [facility] [address] [address] 04 Nov, 2015 Hypertension I10 and Back pain M54.9 [facility] [address] [address] Oct, Hypertension I10 and Back pain M54.9 [facility] [address] [address] Oct, Back pain M54.9 [facility] [address] [address] Sep, Back pain M54.9 [facility] [address] [address] Sep, [facility] [address] [address] Sep, [facility] [address] [address] Sep, [facility] [address] [address] Sep, [facility] [address] [address] Aug, [facility] [address] [address] Aug, [facility] [address] [address] Aug, [facility] [address] [address] Aug, [facility] [address] [address] Aug, [facility] [address] [address] Jul, [facility] [address] [address] Jul, Back pain M54.9 ; Arthritis M19.90 ; Hyp ertension I10 and Encounter for immunization Z23 [facility] [address] [address] Jul, Generalized anxiety disorder F41.1 and D epressive disorder, not elsewhere classified F32.9 [facility] [address] [address] Jul, [facility] [address] [id number] [place] [address] 17 Jul, 2015 [facility] [address] [id number] [place] [address] 16 Jul, 2015 [facility] [address] [id number] [place] [address] Jun, [facility] [address] [place] [id number] [place] [address] Jun, [facility] [address] [place] [id number] [place] [address] May, [facility] [address] [place] [id number] [place] [address] May, [facility] [address] [place] [id number] [place] [address] May[facility] [address] [place] [id number] [place] [address] May, [facility] [address] [place] [id number] [place] [address] May, Benign essential hypertension 401.1 ; An xiety state, unspecified 300.00 ; Back pain 724.5 and Arthritis 716.90 [facility] [address] [place] [id number] [place] [address] May, [facility] [address] [place] [id number] [place] [address] Apr, [facility] [address] [place] [id number] [place] [address] Apr, [facility] [address] [place] [id number] [place] [address] Apr, [facility] [address] [place] [id number] [place] [address] Mar, [facility] [address] [id number] [place] [address] Mar, [facility] [address] [place] [id number] [place] [address] Mar, [facility] [address] [place] [address] [id number] [place] [address] Feb, High risk medication use V58.69 [facility] [address] [place] [id number] [place] [address] Feb, Benign essential hypertension 401.1 ; An xiety state, unspecified 300.00 and Chronic pain 338.29 [facility] [address] [place] [address] [id number] [place] [address] Feb, [facility] [address] [place] [id number] [place] [address] January, [facility] [address] [address] January, [facility] [address] [place] [id number] [place] [address] January, [facility] [address] [place] [id number] [place] [address] January, [facility] [address] [place] [id number] [place] [address] Dec, [facility] [address] [id number] [place] [address] Dec, [facility] [address] [place] [id number] [place] [address] Nov, [facility] [id number] [place] [address] Nov, [facility] [id number] [place] [address] Nov, [facility] [address] [id number] [place] [address] Nov, [facility] [id number] [place] [address] Oct, [facility] [address] [id number] [place] [address] Oct, [facility] [id number] [place] [address] Oct, 2014 [facility] [address] [id number] [place] [address] Oct, [facility] [address] [id number] [place] [address] Oct, [facility] [address] [id number] [place] [address] Sep, [facility] [address] [id number] [place] [address] Sep, [facility] [address] [id number] [place] [address] Sep, [facility] [address] [id number] [place] [address] Sep, [facility] [address] [id number] [place] [address] Aug, [facility] [address] [id number] [place] [address] Aug, [facility] [address] [id number] [place] [address] Aug, [facility] [address] [id number] [place] [address] Aug, [facility] [address] [id number] [place] [address] Aug, [facility] [address] [id number] [place] [address] Aug, [facility] [address] [id number] [place] [address] Jul, [facility] [id number] [place] [address] Jul, [facility] [address] [id number] [place] [address] Jun, [facility] [address] [id number] [place] [address] Jun, [facility] [id number] [place] [address] Jun, [facility] [address] [facility] [id number] [place] [address] Jun, [facility] [address] [id number] [place] [address] May, [facility] [address] [id number] [place] [address] May, [facility] [address] [facility] [id number] [place] [address] May, [facility] [address] [id number] [place] [address] May, [facility] [address] [id number] [place] [address] Apr, [facility] [address] [id number] [place] [address] Apr, [facility] [address] [id number] [place] [address] Apr, [facility] [address] [id number] [place] [address] Apr, [facility] [address] [id number] [place] [address] Apr, [facility] [address] [id number] [place] [address] Apr, [facility] [address] [id number] [place] [address] Mar, [facility] [address] [facility] [id number] [place] [address] Mar, [facility] [address] [id number] [place] [address] Mar, [facility] [place] [facility] [address] [id number] [place] [address] Mar, [facility] [place] [facility] [address] [id number] [place] [address] Feb, [facility] [place] [facility] [address] [id number] [place] [address] Feb, [facility] [place] [facility] [address] [facility] [id number] [place] [address] Feb, [facility] [place] [facility] [address] [id number] [place] [address] January, [facility] [place] [facility] [address] [id number] [place] [address] January, [facility] [place] [facility] [address] [facility] [id number] [place] [address] January, [facility] [place] [facility] [address] [id number] [place] [address] January, [facility] [place] [facility] [address] [id number] [place] [address] January, [facility] [place] [facility] [address] [id number] [place] [address] January, [facility] [place] [facility] [address] [id number] [place] [address] January, [facility] [place] [facility] [address] [id number] [place] [address] January, [facility] [place] [facility] [address] [id number] [place] [address] Dec, [facility] [place] [facility] [address] [id number] [place] [address] Dec, [facility] [place] [facility] [address] [facility] [id number] [place] [address] Dec, [facility] [place] [facility] [address] [id number] [place] [address] Dec, [facility] [place] [facility] [address] [id number] [place] [address] Dec, [facility] [place] [facility] [address] [id number] [place] [address] Dec, [facility] [place] [facility] [address] [id number] [place] [address] Dec, [facility] [place] [facility] [address] [facility] [id number] [place] [address] Nov, [facility] [place] [facility] [address] [id number] [place] [address] Nov, [facility] [place] [facility] [address] [id number] [place] [address] Nov, [facility] [place] [facility] [address] [id number] [place] [address] Nov, [facility] [place] [facility] [address] [id number] [place] [address] Nov, [facility] [place] [facility] [address] [id number] [place] [address] Nov, [facility] [place] [facility] [address] [id number] [place] [address] Nov, [facility] [place] [facility] [address] [id number] [place] [address] Nov, [facility] [place] [facility] [address] [id number] [place] [address] Nov, [facility] [place] [facility] [address] [id number] [place] [address] Nov, [facility] [place] [facility] [address] [id number] [place] [address] Nov, [facility] [place] [facility] [address] [id number] [place] [address] Nov, [facility] [place] [facility] [address] [id number] [place] [address] 07 Oct, 2013 [facility] [place] [facility] [address] [id number] [place] [address] 07 Oct, 2013 [facility] [place] [facility] [address] [id number] [place] [address] Sep, [facility] [place] [facility] [address] [id number] [place] [address] Sep, [facility] [place] [facility] [address] [id number] [place] [address] 10 Sep, 2013 [facility] [place] [facility] [address] [id number] [place] [address] Sep, [facility] [place] [facility] [address] [id number] [place] [address] Aug, [facility] [place] [facility] [address] [id number] [place] [address] Aug, [facility] [place] [facility] [address] [id number] [place] [address] Jul, [facility] [place] [facility] [address] [id number] [place] [address] Jul, [facility] [place] [facility] [address] [id number] [place] [address] Jul, [facility] [place] [facility] [address] [id number] [place] [address] 15 Jul, 2013 [facility] [place] [facility] [address] [id number] [place] [address] 28 Jun, 2013 [facility] [place] [facility] [address] [id number] [place] [address] 28 Jun, 2013 [facility] [place] [facility] [address] [id number] [place] [address] 18 Jun, 2013 [facility] [place] [facility] [address] [id number] [place] [address] 18 Jun, 2013 [facility] [place] [facility] [address] [id number] [place] [address] 14 Jun, 2013 [facility] [place] [facility] [address] [id number] [place] [address] 14 Jun, 2013 [facility] [place] [facility] [address] [id number] [place] [address] 20 May, 2013 [facility] [place] [facility] [address] [id number] [place] [address] 18 May, 2013 [facility] [place] [facility] [address] [id number] [place] [address] May, [facility] [place] [facility] [address] [facility] [id number] [place] [place] [address] Apr, [facility] [address] [id number] [place] [address] Apr, [facility] [address] [id number] [place] [address] Apr, [facility] [address] [id number] [place] [address] Mar, [facility] [address] [facility] [id number] [place] [address] Mar, [facility] [address] [id number] [place] [address] Feb, [facility] [address] [id number] [place] [address] Feb, [facility] [address] [id number] [place] [address] Feb, [facility] [address] [id number] [place] [address] January, [facility] [address] [id number] [place] [address] January, [facility] [address] [id number] [place] [address] January, [facility] [address] [id number] [place] [address] 15 Dec, 2012 [facility] [address] [id number] [place] [address] Dec, [facility] [address] [id number] [place] [address] 08 Dec, 2012 [facility] [address] [id number] [place] [address] Nov, [facility] [address] [id number] [place] [address] 14 Nov, 2012 [facility] [address] [id number] [place] [address] Nov, [facility] [address] [id number] [place] [address] Oct, [facility] [address] [id number] [place] [address] Oct, [facility] [address] [id number] [place] [address] Sep, [facility] [address] [id number] [place] [address] Sep, [facility] [address] [id number] [place] [address] Sep, [facility] [address] [id number] [place] [address] Aug, [facility] [address] [id number] [place] [address] Aug, [facility] [address] [id number] [place] [address] Aug, [facility] [address] [id number] [place] [address] Aug, [facility] [address] [id number] [place] [address] Aug, [facility] [address] [id number] [place] [address] Jul, [facility] [address] [id number] [place] [address] Jul, [facility] [address] [id number] [place] [address] Jul, [facility] [id number] [place] [address] Jul, [facility] [address] [id number] [place] [address] Jul, [facility] [id number] [place] [address] Jul, [facility] [address] [id number] [place] [address] Jun, [facility] [address] [id number] [place] [address] Jun, [facility] [address] [id number] [place] [address] Jun, [facility] [address] [id number] [place] [address] Jun, [facility] [address] [id number] [place] [address] May, [facility] [address] [id number] [place] [address] 06 May, 2012 [facility] [address] [id number] [place] [address] 16 Apr, 2012 [facility] [id number] [place] [address] 15 Apr, 2012 [facility] [address] [id number] [place] [address] Apr, [facility] [address] [id number] [place] [address] Mar, [facility] [address] [id number] [place] [address] Mar, [facility] [address] [id number] [place] [address] Feb, [facility] [address] [id number] [place] [address] January, [facility] [address] [id number] [place] [address] January, [facility] [address] [id number] [place] [address] Dec, [facility] [address] [id number] [place] [address] Dec, [facility] [address] [id number] [place] [address] 05 Dec, 2011 [facility] [address] [id number] [place] [address] Dec, [facility] [address] [id number] [place] [address] 30 Nov, 2011 [facility] [address] [id number] [place] [address] Nov, [facility] [address] [id number] [place] [address] Nov, [facility] [address] [id number] [facility] [place] [address] Nov, [facility] [address] [id number] [place] [address] 14 Oct, 2011 [facility] [address] [id number] [place] [address] Oct, [facility] [address] [id number] [place] [address] Sep, [facility] [address] [id number] [place] [address] Aug, [facility] [address] [id number] [place] [address] Aug, [facility] [address] [id number] [place] [address] Aug, [facility] [address] [id number] [place] [address] Jul, [facility] [address] [id number] [place] [address] Jul, [facility] [address] [id number] [place] [address] Jul, [facility] [address] [id number] [place] [address] 20 Jun, 2011 [facility] [address] [id number] [place] [address] 14 Jun, 2011 [facility] [id number] [place] [address] 13 Jun, 2011 [facility] [id number] [place] [address] 13 Jun, 2011 [facility] [id number] [place] [address] 19 May, 2011 [facility] [id number] [place] [address] January, [facility] [id number] [place] [address] 28 Aug, 2010 [facility] [id number] [place] [address] Aug, [facility] [id number] [place] [address] Aug, [facility] [id number] [place] [address] Aug, [facility] [id number] [place] [address] Jul, [facility] [id number] [place] [address] Jul, [facility] [id number] [place] [address] 15 Jun, 2010 [facility] [id number] [place] [address] 15 Jun, 2010 [facility] [id number] [place] [address] 16 May, 2010 [facility] [id number] [place] [address] 12 Jan, 2009 IMMUNIZATIONS No Known Immunizations [...]
--- OUTSIDE RECORDS SUMMARY | 2020-02-13 16:33 | XMS REPORT ---
Author Author Cami GLEZ Organization [facility] [place] Address [address] [place] [address] Care Team Providers Care Warehouse Consultant Name Role Phone DON GLEZ Unavailable PROBLEMS Type Condition ICD9-CM Code QAK23-MW Code Onset Dates Condition S tatus SNOMED Code Problem Arthritis M19.90 Active 4979985 Problem Back pain M54.9 Active 937642839 Problem Hypertension I10 Active 8651736 3 Problem Lumbar radiculopathy M54.16 Active 400792155 Problem Venous insufficiency I87.2 Active 06054716 Problem Generalized anxiety disorder F41.1 A ctive 34481126 Problem Depressive disorder, not elsewhere classified F32. 9 Active 11336961 Problem COPD (chronic obstructive pulmonary disease) J44.9 Active 05418192 Problem Vitamin D deficiency E55.9 Active [id number] ALLERGIES No Information ENCOUNTERS Encounter Location Date Diagnosis [place] [address] [address] Nov, [place] [address] [address] Aug, Radiculopathy, lumbar region M54.16 [place] [address] [address] Aug, Back pain M54.9 [place] [address] [address] Aug, Lumbar radiculopathy M54.16 ; Generalize d anxiety disorder F41.1 and Drug-induced constipation K59.03 [place] [address] [address] Jul, Radiculopathy, lumbar region M54.16 [place] [address] [address] Jul, [facility] [place] [address] [address] Jul, [facility] [place] [address] [address] Jul, Back pain M54.9 [facility] [place] [address] [address] Jul, Radiculopathy, lumbar region M54.16 [facility] [place] [address] [address] Jul, Radiculopathy, lumbar region M54.16 [facility] [place] [address] [address] Jun, Back pain M54.9 [facility] [place] [address] [address] Jun, [facility] [place] [address] [address] Jun, Radiculopathy, lumbar region M54.16 [facility] [place] [address] [address] Jun, [facility] [place] [address] [address] May, Back pain M54.9 [facility] [place] [address] [address] May, Cellulitis of other specified site L03.8 18 ; Dermatitis L30.9 and Lumbar radiculopathy M54.16 [facility] [place] [address] [address] May, [facility] [place] [address] [address] May, Back pain M54.9 [facility] [place] [address] [address] May, [facility] [place] [address] [address] May, Back pain M54.9 [facility] [place] [address] [address] Apr, [facility] [place] [address] [address] Apr, Back pain M54.9 [facility] [place] [address] [address] Apr, Hyponatremia E87.1 [facility] [place] [address] [address] Apr, Hyponatremia E87.1 [facility] [place] [address] [address] Mar, Arthritis M19.90 ; Impacted cerumen of r ight ear H61.21 and Hypertension I10 [facility] [place] [id number] [place] [id number] Mar, [facility] [place] [address] [address] Mar, Back pain M54.9 [facility] [place] [address] [address] Feb, Back pain M54.9 [facility] [place] [address] [address] Feb, [facility] [place] [address] [address] Feb, Dermatitis L30.9 [facility] [place] [address] [address] January, Dermatitis L30.9 [facility] [place] [address] [address] January, [facility] [place] [address] [address] January, Back pain M54.9 [facility] [place] [address] [address] 18 Dec, 2018 [facility] [place] [address] [address] Dec, Back pain M54.9 [facility] [place] [address] [address] 09 Dec, 2018 Lumbar radiculopathy M54.16 ; Arthritis M19.90 and Dyshydrosis L30.1 [facility] [place] [address] [address] Nov, Back pain M54.9 [facility] [place] [address] [address] Nov, [facility] [place] [address] [address] Oct, [facility] [place] [address] [address] Oct, Back pain M54.9 [facility] [place] [address] [address] Oct, [facility] [place] [address] [address] Oct, [facility] [place] [address] [address] Sep, Back pain M54.9 [facility] [place] [address] [address] Sep, [facility] [place] [address] [address] Aug, Back pain M54.9 [facility] [place] [address] [address] Aug, Encounter for immunization Z23 ; Arthrit is M19.90 and Generalized anxiety disorder F41.1 [facility] [place] [address] [address] Aug, [facility] [place] [address] [address] Aug, [facility] [place] [address] [address] Jul, Back pain M54.9 [facility] [place] [address] [address] Jul, [facility] [place] [address] [address] Jul, [facility] [place] [address] [address] Jun, Back pain M54.9 [facility] [place] [address] [address] Jun, [facility] [place] [address] [address] Jun, Back pain M54.9 [facility] [place] [address] [address] May, Lumbar radiculopathy M54.16 ; Hypertensi on I10 and Generalized anxiety disorder F41.1 [facility] [place] [address] [address] May, Back pain M54.9 [facility] [place] [address] [address] Apr, [facility] [place] [address] [address] Apr, [facility] [place] [address] [address] Apr, Back pain M54.9 [facility] [place] [address] [address] Mar, Back pain M54.9 [facility] [place] [address] [address] Feb, [facility] [place] [address] [address] Feb, [facility] [place] [address] [address] Feb, [facility] [place] [address] [address] 14 Feb, 2018 Back pain M54.9 [facility] [place] [address] [address] Feb, Back pain M54.9 ; Hypertension I10 ; Gen eralized anxiety disorder F41.1 and Venous insufficiency I87.2 [facility] [place] [address] [address] January, [facility] [place] [address] [address] January, Back pain M54.9 [facility] [place] [address] [address] Dec, [facility] [place] [address] [address] Dec, Back pain M54.9 [facility] [place] [address] [address] Nov, Back pain M54.9 [facility] [place] [address] [address] Nov, [facility] [place] [address] [address] Nov, Lumbar radiculopathy M54.16 ; Hypertensi on I10 ; Arthritis M19.90 and Back pain M54.9 [facility] [place] [address] [address] Oct, Back pain M54.9 [facility] [place] [address] [address] Oct, [facility] [place] [address] [address] Sep, Back pain M54.9 [facility] [place] [address] [address] Sep, [facility] [place] [address] [address] Aug, Back pain M54.9 [facility] [place] [address] [address] 30 Jul, 2017 Back pain M54.9 [facility] [place] [address] [address] 09 Jul, 2017 Encounter for immunization Z23 ; Back pa in M54.9 ; Hypertension I10 and Lumbar radiculopathy M54.16 [place] [address] [address] Jul, Back pain M54.9 [facility] [place] [address] [address] 18 Jun, 2017 Vitamin D deficiency E55.9 [facility] [place] [address] [address] 04 Jun, 2017 Back pain M54.9 [facility] [place] [address] [address] 20 May, 2017 [facility] [place] [address] [address] 08 May, 2017 [facility] [place] [address] [address] 08 May, 2017 [facility] [place] [address] [address] May, Back pain M54.9 [facility] [place] [address] [address] 15 Apr, 2017 Back pain M54.9 ; Hypertension I10 ; Art hritis M19.90 and Generalized anxiety disorder F41.1 [facility] [place] [address] [address] 08 Apr, 2017 Back pain M54.9 [facility] [place] [address] [address] Mar, Back pain M54.9 [facility] [place] [address] [place] [id number] [place] [address] 10 Mar, 2017 Vitamin D deficiency E55.9 [facility] [place] [address] [place] [id number] [place] [address] 15 Feb, 2017 Vitamin D deficiency E55.9 [facility] [place] [address] [place] [id number] [place] [address] 14 Feb, 2017 Vitamin D deficiency E55.9 [facility] [place] [address] [place] [id number] [place] [address] 13 Feb, 2017 Back pain M54.9 [facility] [place] [address] [address] 19 Jan, 2017 Back pain M54.9 [facility] [place] [address] [address] January, Arthritis M19.90 [facility] [place] [address] [address] January, Vitamin D deficiency E55.9 and Arthritis M19.90 [facility] [place] [address] [address] Dec, Medicare annual wellness visit, initial Z00.00 and Encounter for immunization Z23 [place] [address] [address] Dec, Back pain M54.9 [facility] [place] [address] [address] Nov, Back pain M54.9 [facility] [place] [address] [address] 24 Oct, 2016 Back pain M54.9 [facility] [place] [address] [address] 14 Oct, 2016 COPD (chronic obstructive pulmonary dise ase) J44.9 [facility] [place] [address] [address] 14 Oct, 2016 [facility] [place] [address] [address] Oct, Hypertension I10 ; Back pain M54.9 and E ncounter for immunization Z23 [facility] [place] [address] [address] Sep, [facility] [place] [address] [address] Sep, Back pain M54.9 [facility] [place] [address] [address] Sep, Back pain M54.9 [facility] [place] [address] [address] Aug, [facility] [place] [address] [address] Aug, Back pain M54.9 [facility] [place] [address] [address] Aug, [facility] [place] [address] [address] Aug, [facility] [place] [address] [address] Aug, Back pain M54.9 [facility] [place] [address] [address] Jul, [facility] [place] [address] [address] Jul, Back pain M54.9 [facility] [place] [address] [address] Jun, Back pain M54.9 ; Hypertension I10 ; Gen eralized anxiety disorder F41.1 and Encounter for immunization Z23 [facility] [place] [address] [address] Jun, [facility] [place] [address] [address] May, [facility] [place] [address] [address] Apr, [facility] [place] [address] [address] Apr, [facility] [place] [address] [address] Mar, [facility] [place] [address] [address] Mar, [facility] [place] [address] [address] Mar, [facility] [place] [address] [address] Feb, Back pain M54.9 and Hypertension I10 [facility] [place] [address] [address] Feb, Back pain M54.9 [facility] [place] [address] [address] Dec, COPD (chronic obstructive pulmonary dise ase) J44.9 [facility] [place] [address] [address] Dec, [facility] [place] [address] [address] Dec, Back pain M54.9 [facility] [place] [address] [address] 24 Nov, 2015 Back pain M54.9 [facility] [place] [address] [address] 14 Nov, 2015 COPD (chronic obstructive pulmonary dise ase) J44.9 [facility] [place] [address] [address] 04 Nov, 2015 Hypertension I10 and Back pain M54.9 [facility] [place] [address] [address] Oct, Hypertension I10 and Back pain M54.9 [facility] [place] [address] [address] Oct, Back pain M54.9 [facility] [place] [address] [address] Sep, Back pain M54.9 [facility] [place] [address] [address] Sep, [facility] [place] [address] [address] Sep, [facility] [place] [address] [address] Sep, [facility] [place] [address] [address] Sep, [facility] [place] [address] [address] Aug, [facility] [place] [address] [address] Aug, [facility] [place] [address] [address] Aug, [facility] [place] [address] [address] Aug, [facility] [place] [address] [address] Aug, [facility] [place] [address] [address] Jul, [facility] [place] [address] [address] Jul, Back pain M54.9 ; Arthritis M19.90 ; Hyp ertension I10 and Encounter for immunization Z23 [facility] [place] [address] [address] Jul, Generalized anxiety disorder F41.1 and D epressive disorder, not elsewhere classified F32.9 [facility] [place] [address] [address] Jul, [facility] [place] [address] [id number] [place] [address] 17 Jul, 2015 [facility] [address] [id number] [place] [address] 16 Jul, 2015 [facility] [address] [id number] [place] [address] Jun, [facility] [id number] [place] [address] Jun, [facility] [id number] [place] [address] May, [facility] [id number] [place] [address] May, [facility] [id number] [place] [address] May, [facility] [id number] [place] [address] May, [facility] [id number] [place] [address] May, Benign essential hypertension 401.1 ; An xiety state, unspecified 300.00 ; Back pain 724.5 and Arthritis 716.90 [facility] [id number] [place] [address] May, [facility] [id number] [place] [address] Apr, [facility] [id number] [place] [address] Apr, [facility] [id number] [place] [address] Apr, [facility] [id number] [place] [address] Mar, [facility] [address] [id number] [place] [address] Mar, [facility] [id number] [place] [address] Mar, [facility] [place] [id number] [place] [address] Feb, High risk medication use V58.69 [facility] [place] [id number] [place] [address] Feb, Benign essential hypertension 401.1 ; An xiety state, unspecified 300.00 and Chronic pain 338.29 [facility] [place] [id number] [place] [address] Feb, [facility] [place] [id number] [place] [address] January, [facility] [place] [address] [address] January, [facility] [place] [id number] [place] [address] January, [facility] [place] [id number] [place] [address] January, [facility] [place] [id number] [place] [address] Dec, [facility] [place] [id number] [place] [address] Dec, [facility] [place] [id number] [place] [address] Nov, [facility] [place] [id number] [place] [address] Nov, [facility] [place] [id number] [place] [address] Nov, [facility] [place] [id number] [place] [address] Nov, [facility] [place] [id number] [place] [address] Oct, [facility] [place] [id number] [place] [address] Oct, [facility] [place] [id number] [place] [address] Oct, 2014 [facility] [address] [id number] [place] [address] Oct, [facility] [address] [id number] [place] [address] Oct, [facility] [address] [id number] [place] [address] Sep, [facility] [address] [id number] [place] [address] Sep, [facility] [address] [id number] [place] [address] Sep, [facility] [address] [id number] [place] [address] Sep, [facility] [address] [id number] [place] [address] Aug, [facility] [address] [id number] [place] [address] Aug, [facility] [facility] [address] [id number] [place] [address] Aug, [facility] [place] [facility] [address] [id number] [place] [address] Aug, [facility] [place] [facility] [address] [id number] [place] [address] Aug, [facility] [place] [facility] [address] [id number] [place] [address] Aug, [facility] [place] [facility] [address] [id number] [place] [address] Jul, [facility] [place] [facility] [id number] [place] [address] Jul, [facility] [place] [facility] [address] [id number] [place] [address] Jun, [facility] [place] [facility] [address] [id number] [place] [address] Jun, [facility] [place] [facility] [address] [id number] [place] [address] Jun, [facility] [place] [facility] [address] [facility] [id number] [place] [address] Jun, [facility] [place] [facility] [address] [id number] [place] [address] May, [facility] [place] [facility] [address] [id number] [place] [address] May, [facility] [place] [facility] [address] [facility] [id number] [place] [address] May, [facility] [place] [facility] [address] [id number] [place] [address] May, [facility] [place] [facility] [address] [id number] [place] [address] Apr, [facility] [place] [facility] [address] [id number] [place] [address] Apr, [facility] [place] [facility] [address] [id number] [place] [address] Apr, [facility] [place] [facility] [address] [id number] [place] [address] Apr, [facility] [place] [facility] [address] [id number] [place] [address] Apr, [facility] [place] [facility] [address] [id number] [place] [address] Apr, [facility] [place] [facility] [address] [id number] [place] [address] Mar, [facility] [place] [facility] [address] [facility] [id number] [place] [address] Mar, [facility] [place] [facility] [address] [id number] [place] [address] Mar, [facility] [place] [facility] [address] [id number] [place] [address] Mar, [facility] [place] [facility] [address] [id number] [place] [address] Feb, [facility] [place] [facility] [address] [id number] [place] [address] Feb, [facility] [place] [facility] [address] [facility] [id number] [place] [address] Feb, [facility] [place] [facility] [address] [id number] [place] [address] January, [facility] [place] [facility] [address] [id number] [place] [address] January, [facility] [place] [facility] [address] [facility] [id number] [place] [address] January, [facility] [place] [facility] [address] [id number] [place] [address] January, [facility] [place] [facility] [address] [id number] [place] [address] January, [facility] [place] [facility] [address] [id number] [place] [address] January, [facility] [place] [facility] [address] [id number] [place] [address] January, [facility] [place] [facility] [address] [id number] [place] [address] January, [facility] [place] [facility] [address] [id number] [place] [address] Dec, [facility] [place] [facility] [address] [id number] [place] [address] Dec, [facility] [place] [facility] [address] [facility] [id number] [place] [address] Dec, [facility] [place] [facility] [address] [id number] [place] [address] Dec, [facility] [place] [facility] [address] [id number] [place] [address] Dec, [facility] [place] [facility] [address] [id number] [place] [address] Dec, [facility] [place] [facility] [address] [id number] [place] [address] Dec, [facility] [place] [facility] [address] [facility] [id number] [place] [address] Nov, [facility] [place] [facility] [address] [id number] [place] [address] Nov, [facility] [place] [facility] [address] [id number] [place] [address] Nov, [facility] [place] [facility] [address] [id number] [place] [address] Nov, [facility] [place] [facility] [address] [id number] [place] [address] Nov, [facility] [place] [facility] [address] [id number] [place] [address] Nov, [facility] [place] [facility] [address] [id number] [place] [address] Nov, [facility] [place] [facility] [address] [id number] [place] [address] Nov, [facility] [place] [facility] [address] [id number] [place] [address] Nov, [facility] [place] [facility] [address] [id number] [place] [address] Nov, [facility] [place] [facility] [address] [id number] [place] [address] Nov, [facility] [place] [facility] [address] [id number] [place] [address] Nov, [facility] [place] [facility] [address] [id number] [place] [address] 07 Oct, 2013 [facility] [place] [facility] [address] [id number] [place] [address] 07 Oct, 2013 [facility] [place] [facility] [address] [id number] [place] [address] Sep, [facility] [place] [facility] [address] [id number] [place] [address] Sep, [facility] [place] [facility] [address] [id number] [place] [address] 10 Sep, 2013 [facility] [place] [facility] [address] [id number] [place] [address] Sep, [facility] [place] [facility] [address] [id number] [place] [address] Aug, [facility] [place] [facility] [address] [id number] [place] [address] Aug, [facility] [place] [facility] [address] [id number] [place] [address] Jul, [facility] [place] [facility] [address] [id number] [place] [address] Jul, [facility] [place] [facility] [address] [id number] [place] [address] Jul, [facility] [place] [facility] [address] [id number] [place] [address] 15 Jul, 2013 [facility] [place] [facility] [address] [id number] [place] [address] 28 Jun, 2013 [facility] [place] [facility] [address] [id number] [place] [address] 28 Jun, 2013 [facility] [place] [facility] [address] [id number] [place] [address] 18 Jun, 2013 [facility] [place] [facility] [address] [id number] [place] [address] 18 Jun, 2013 [facility] [place] [facility] [address] [id number] [place] [address] 14 Jun, 2013 [facility] [place] [facility] [address] [id number] [place] [address] 14 Jun, 2013 [facility] [place] [facility] [address] [id number] [place] [address] 20 May, 2013 [facility] [place] [facility] [address] [id number] [place] [address] 18 May, 2013 [facility] [place] [facility] [address] [id number] [place] [address] May, [facility] [place] [facility] [address] [facility] [id number] [place] [address] Apr, [facility] [place] [facility] [address] [id number] [place] [address] Apr, [facility] [place] [facility] [address] [id number] [place] [address] Apr, [facility] [place] [facility] [address] [id number] [place] [address] Mar, [facility] [place] [facility] [address] [facility] [id number] [place] [address] Mar, [facility] [place] [facility] [address] [id number] [place] [address] Feb, [facility] [place] [facility] [address] [id number] [place] [address] Feb, [facility] [place] [facility] [address] [id number] [place] [address] Feb, [facility] [place] [facility] [address] [id number] [place] [address] January, [facility] [place] [facility] [address] [id number] [place] [address] January, [facility] [place] [facility] [address] [id number] [place] [address] January, [facility] [place] [facility] [address] [id number] [place] [address] 15 Dec, 2012 [facility] [place] [facility] [address] [id number] [place] [address] Dec, [facility] [place] [facility] [address] [id number] [place] [address] 08 Dec, 2012 [facility] [place] [facility] [address] [id number] [place] [address] Nov, [facility] [place] [facility] [address] [id number] [place] [address] 14 Nov, 2012 [facility] [place] [facility] [address] [id number] [place] [address] Nov, [facility] [place] [facility] [address] [id number] [place] [address] Oct, [facility] [place] [facility] [address] [id number] [place] [address] Oct, [facility] [place] [facility] [address] [id number] [place] [address] Sep, [facility] [place] [facility] [address] [id number] [place] [address] Sep, [facility] [place] [facility] [address] [id number] [place] [address] Sep, [facility] [place] [facility] [address] [id number] [place] [address] Aug, [facility] [place] [facility] [address] [id number] [place] [address] Aug, [facility] [place] [facility] [address] [id number] [place] [address] Aug, [facility] [place] [facility] [address] [id number] [place] [address] Aug, [facility] [place] [facility] [address] [id number] [place] [address] Aug, [facility] [place] [facility] [address] [id number] [place] [address] Jul, [facility] [place] [facility] [address] [id number] [place] [address] Jul, [facility] [place] [facility] [address] [id number] [place] [address] Jul, [facility] [place] [facility] [id number] [place] [address] Jul, [facility] [place] [facility] [address] [id number] [place] [address] Jul, [facility] [place] [facility] [id number] [place] [address] Jul, [facility] [place] [facility] [address] [id number] [place] [address] Jun, [facility] [place] [facility] [address] [id number] [place] [address] Jun, [facility] [place] [facility] [address] [id number] [place] [address] Jun, [facility] [place] [facility] [address] [id number] [place] [address] Jun, [facility] [place] [facility] [address] [id number] [place] [address] May, [facility] [place] [facility] [address] [id number] [place] [address] 06 May, 2012 [facility] [place] [facility] [address] [id number] [place] [address] 16 Apr, 2012 [facility] [place] [facility] [id number] [place] [address] 15 Apr, 2012 [facility] [place] [facility] [address] [id number] [place] [address] Apr, [facility] [place] [facility] [address] [id number] [place] [address] Mar, [facility] [place] [facility] [address] [id number] [place] [address] Mar, [facility] [place] [facility] [address] [id number] [place] [address] Feb, [facility] [place] [facility] [address] [id number] [place] [address] January, [facility] [place] [facility] [address] [id number] [place] [address] January, [facility] [place] [facility] [address] [id number] [place] [address] Dec, [facility] [place] [facility] [address] [id number] [place] [address] Dec, [facility] [place] [facility] [address] [id number] [place] [address] 05 Dec, 2011 [facility] [place] [facility] [address] [id number] [place] [address] Dec, [facility] [place] [facility] [address] [id number] [place] [address] 30 Nov, 2011 [facility] [place] [facility] [address] [id number] [place] [address] Nov, [facility] [place] [facility] [address] [id number] [place] [address] Nov, [facility] [place] [facility] [address] [id number] [facility] [place] [address] Nov, [facility] [place] [facility] [address] [id number] [place] [address] 14 Oct, 2011 [facility] [place] [facility] [address] [id number] [place] [address] Oct, [facility] [place] [facility] [address] [id number] [place] [address] Sep, [facility] [place] [facility] [address] [id number] [place] [address] Aug, [facility] [place] [facility] [address] [id number] [place] [address] Aug, [facility] [place] [facility] [address] [id number] [place] [address] Aug, [facility] [place] [facility] [address] [id number] [place] [address] Jul, [facility] [place] [facility] [address] [id number] [place] [address] Jul, [facility] [place] [facility] [address] [id number] [place] [address] Jul, [facility] [place] [facility] [address] [id number] [place] [address] 20 Jun, 2011 [facility] [place] [facility] [address] [id number] [place] [address] 14 Jun, 2011 [facility] [place] [facility] [id number] [place] [address] 13 Jun, 2011 [facility] [place] [id number] [place] [address] 13 Jun, 2011 [facility] [place] [id number] [place] [address] 19 May, 2011 [facility] [place] [id number] [place] [address] January, [facility] [place] [id number] [place] [address] 28 Aug, 2010 [facility] [place] [id number] [place] [address] Aug, [facility] [place] [id number] [place] [address] Aug, [facility] [place] [id number] [place] [address] Aug, [facility] [place] [id number] [place] [address] Jul, [facility] [place] [id number] [place] [address] Jul, [facility] [place] [id number] [place] [address] 15 Jun, 2010 [facility] [place] [id number] [place] [address] 15 Jun, 2010 [facility] [place] [id number] [place] [address] 16 May, 2010 [facility] [place] [id number] [place] [address] 12 Jan, 2009 IMMUNIZATIONS No Known Immunizations [...]
[2020-02-13] MEDS ORDERED: FLEET ENEMA ADULT 1 EA BTL PR ONE (16:45)
--- OUTSIDE RECORDS SUMMARY | 2020-02-13 16:45 | XMS REPORT | Continuity of Care Document ---
Demographics Preferred Language Unknown Marital Status Unknown Worship Affiliation Unknown Race Unknown Ethnic Group Unknown Author Organization Unknown Address Unknown Phone Unavailable Allergies Active Description Code Type Severity Reaction Onset Reported/Identified Relationship to Patient Clinical Status Yes Penicillins Drug Allergy 01/26/2009 Yes Penicillins Drug Allergy N/A N/A 01/26/2009 Yes gabapentin [id number] Drug Allerg y Unknown N/A 06/25/2019 Yes hydrochlorothiazide [id number] Drug Allergy Unknown N/A 06/25/2019 Yes lisinopril [id number] Drug Allerg y Unknown N/A 06/25/2019 Yes losartan [id number] Drug Allergy Unknown N/A 06/25/2019 Yes Penicillins [id number] Drug Aller gy Unknown N/A 06/25/2019 Yes pregabalin [id number] Drug Allerg y Unknown N/A 06/25/2019 Yes Sulfa (Sulfonamide Antibiotics) [id number] Drug Allergy Unknown N/A 019 Yes sulfamethoxazole [id number] Drug Allergy Unknown N/A 06/25/2019 Yes trimethoprim [id number] Drug Allergy Unknown N/A 06/25/2019 Medications There is no data. Problems Date Dx Coded Attending Type Code Diagnosis Diagnosed By 01/26/2009 DON GLEZ MD 719.4 5 Joint Pain, Localized In The Hip 01/26/2009 DON GLEZ MD 71Kena.4 5 Joint Pain, Localized In The Hip 01/26/2009 DON GLEZ MD 71Kena.4 5 Joint Pain, Localized In The Hip 01/26/2009 DON GLEZ MD.4 5 Joint Pain, Localized In The Hip 01/26/2009 DON GLEZ MD 719.4 5 Joint Pain, Localized In The Hip 01/26/2009 EMELY FAIRCHILD DO 719.45 Joint Pain, Localized In The Hip 01/26/2009 DON GLEZ MD.4 5 Joint Pain, Localized In The Hip 01/26/2009 DON GLEZ MD 719.4 5 Joint Pain, Localized In The Hip 01/26/2009 HUERTER MD, DON 719.4 5 Joint Pain, Localized In The Hip 01/26/2009 DON GLEZ MD 719.4 5 Joint Pain, Localized In The Hip 01/26/2009 DON GLEZ MD 719.4 5 Joint Pain, Localized In The Hip 01/26/2009 DON GLEZ MD 719.4 5 Joint Pain, Localized In The Hip 01/26/2009 DON GLEZ MD 719.4 5 Joint Pain, Localized In The Hip 01/26/2009 DON GLEZ MD 719.4 5 Joint Pain, Localized In The Hip 01/26/2009 ODN GLEZ MD 719.4 5 Joint Pain, Localized In The Hip 02/22/2009 DON GLEZ MD 715.2 5 Osteoarthritis Localized Secondary Hip 02/22/2009 DON GLEZ MD 715.2 5 Osteoarthritis Localized Secondary Hip 02/22/2009 DON GLEZ MD 715.2 5 Osteoarthritis Localized Secondary Hip 02/22/2009 DON GLEZ MD 715.2 5 Osteoarthritis Localized Secondary Hip 02/22/2009 DON GLEZ MD 715.2 5 Osteoarthritis Localized Secondary Hip 02/22/2009 EMELY FAIRCHILD DO 715.25 Osteoarthritis Localized Secondary Hip 02/22/2009 DON GLEZ MD 715.2 5 Osteoarthritis Localized Secondary Hip 02/22/2009 DON GLEZ MD 715.2 5 Osteoarthritis Localized Secondary Hip 02/22/2009 DON GLEZ MD 715.2 5 Osteoarthritis Localized Secondary Hip 02/22/2009 DON GLEZ MD 715.2 5 Osteoarthritis Localized Secondary Hip 02/22/2009 DON GLEZ MD 715.2 5 Osteoarthritis Localized Secondary Hip 02/22/2009 DON GLEZ MD 715.2 5 Osteoarthritis Localized Secondary Hip 02/22/2009 DON GLEZ MD 715.2 5 Osteoarthritis Localized Secondary Hip 02/22/2009 DON GLEZ MD 715.2 5 Osteoarthritis Localized Secondary Hip 02/22/2009 DON GLEZ MD 715.2 5 Osteoarthritis Localized Secondary Hip 06/02/2010 DON GLEZ MD 244.9 HYPOTHYROIDISM 06/02/2010 DON GLEZ MD 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 06/02/2010 DON GLEZ MD 401.9 HYPERTENSION (SYSTEMIC) 06/02/2010 AMARIS GOMEZ, DON 244.9 HYPOTHYROIDISM 06/02/2010 AMARIS GOMEZ, DON 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 06/02/2010 AMARIS GOMEZ, DON 401.9 HYPERTENSION (SYSTEMIC) 06/02/2010 AMARIS GOMEZ, DON 244.9 HYPOTHYROIDISM 06/02/2010 AMARIS GOMEZ, DON 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9 HYPOTHYROIDISM 06/02/2010 DON GLEZ MD 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 06/02/2010 DON GLEZ MD 401.9 HYPERTENSION (SYSTEMIC) 06/02/2010 DON GLEZ MD 244.9 HYPOTHYROIDISM 06/02/2010 AMARIS GOMEZ, DON 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 06/02/2010 DON GLEZ MD 401.9 HYPERTENSION (SYSTEMIC) 06/02/2010 DON GLEZ MD 244.9 HYPOTHYROIDISM 06/02/2010 AMARIS GOMEZ, DON 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1 NICOTINE DEPENDENCE 09/12/2010 DON GLEZ MD 401.1 Essential Hypertension Benign 09/12/2010 DON GLEZ MD 491.2 1 Chronic Bronchitis - With Acute Exacerbation 09/12/2010 DON GLEZ MD 785.2 Murmurs 09/12/2010 DON GLEZ MD 305.1 NICOTINE DEPENDENCE 09/12/2010 DON GLEZ MD 401.1 Essential Hypertension Benign 09/12/2010 DON GLEZ MD 491.2 1 Chronic Bronchitis - With Acute Exacerbation 09/12/2010 DON GLEZ MD 785.2 Murmurs 09/12/2010 DON GLEZ MD 305.1 NICOTINE DEPENDENCE 09/12/2010 AMARIS GOMEZ, DON 401.1 Essential Hypertension Benign 09/12/2010 DON GLEZ MD 491.2 1 Chronic Bronchitis - With Acute Exacerbation 09/12/2010 DON GLEZ MD 785.2 Murmurs 09/12/2010 DON GLEZ MD 305.1 NICOTINE DEPENDENCE 09/12/2010 DON GLEZ MD 401.1 Essential Hypertension Benign 09/12/2010 DON GLEZ MD 491.2 1 Chronic Bronchitis - With Acute Exacerbation 09/12/2010 DON GLEZ MD 785.2 Murmurs 09/12/2010 DON GLEZ MD 305.1 NICOTINE DEPENDENCE 09/12/2010 DON GLEZ MD 401.1 Essential Hypertension Benign 09/12/2010 DON GLEZ MD 491.2 1 Chronic Bronchitis - With Acute Exacerbation 09/12/2010 DON GLEZ MD 785.2 Murmurs 09/12/2010 FAIRCHILD DO, EMELY K 305.1 NICOTINE DEPENDENCE 09/12/2010 FAIRCHILD DO, EMELY K 401.1 Essential Hypertension Benign 09/12/2010 FAIRCHILD DO, EMELY K 491.21 Chronic Bronchitis - With Acute Exacerbation 09/12/2010 FAIRCHILD DO, EMELY K 785.2 Murmurs 09/12/2010 DON GLEZ MD 305.1 NICOTINE DEPENDENCE 09/12/2010 DON GLEZ MD 401.1 Essential Hypertension Benign 09/12/2010 DON GLEZ MD 491.2 1 Chronic Bronchitis - With Acute Exacerbation 09/12/2010 DON GLEZ MD5.2 Murmurs 09/12/2010 DON GLEZ MD 305.1 NICOTINE DEPENDENCE 09/12/2010 DON GLEZ MD 401.1 Essential Hypertension Benign 09/12/2010 DON GLEZ MD 491.2 1 Chronic Bronchitis - With Acute Exacerbation 09/12/2010 DON GLEZ MD 785.2 Murmurs 09/12/2010 DON GLEZ MD 305.1 NICOTINE DEPENDENCE 09/12/2010 DON GLEZ MD 401.1 Essential Hypertension Benign 09/12/2010 DON GLEZ MD 491.2 1 Chronic Bronchitis - With Acute Exacerbation 09/12/2010 DON GLEZ MD 785.2 Murmurs 09/12/2010 DON GLEZ MD 305.1 NICOTINE DEPENDENCE 09/12/2010 DON GLEZ MD 401.1 Essential Hypertension Benign 09/12/2010 DON GLEZ MD 491.2 1 Chronic Bronchitis - With Acute Exacerbation 09/12/2010 DON GLEZ MD 785.2 Murmurs 09/12/2010 DON GLEZ MD 305.1 NICOTINE DEPENDENCE 09/12/2010 DON GLEZ MD 401.1 Essential Hypertension Benign 09/12/2010 DON GLEZ MD 491.2 1 Chronic Bronchitis - With Acute Exacerbation 09/12/2010 DON GLEZ MD 785.2 Murmurs 09/12/2010 AMARIS GOMEZ, DON 305.1 NICOTINE DEPENDENCE 09/12/2010 AMARIS GOMEZ, DON 401.1 Essential Hypertension Benign 09/12/2010 DON GLEZ MD 491.2 1 Chronic Bronchitis - With Acute Exacerbation 09/12/2010 DON GLEZ MD 785.2 Murmurs 09/12/2010 DON GLEZ MD 305.1 NICOTINE DEPENDENCE 09/12/2010 AMARIS GOMEZ, DON 401.1 Essential Hypertension Benign 09/12/2010 AMARIS GOMEZ, DON 491.2 1 Chronic Bronchitis - With Acute Exacerbation 09/12/2010 DON GLEZ MD 785.2 Murmurs 09/12/2010 AMARIS GOMEZ, DON 305.1 NICOTINE DEPENDENCE 09/12/2010 AMARIS GOMEZ, DON 401.1 Essential Hypertension Benign 09/12/2010 DON GLEZ MD 491.2 1 Chronic Bronchitis - With Acute Exacerbation 09/12/2010 DON GLEZ MD 785.2 Murmurs 09/12/2010 DON GLEZ MD 305.1 NICOTINE DEPENDENCE 09/12/2010 AMARIS GOMEZ, DON 401.1 Essential Hypertension Benign 09/12/2010 DON GLEZ MD 491.2 1 Chronic Bronchitis - With Acute Exacerbation 09/12/2010 DON GLEZ MD 785.2 Murmurs 10/13/2010 DON GLEZ MD 459.8 1 Deep Venous Insufficiency 10/13/2010 DON GLEZ MD 459.8 1 Deep Venous Insufficiency 10/13/2010 DON GLEZ MD 45Kena.8 1 Deep Venous Insufficiency 10/13/2010 DON GLEZ MD 459.8 1 Deep Venous Insufficiency 10/13/2010 DON GLEZ MD 459.8 1 Deep Venous Insufficiency 10/13/2010 EMELY FAIRCHILD DO 459.81 Deep Venous Insufficiency 10/13/2010 DON GLEZ MD 459.8 1 Deep Venous Insufficiency 10/13/2010 DON GLEZ MD 459.8 1 Deep Venous Insufficiency 10/13/2010 DON GLEZ MD 459.8 1 Deep Venous Insufficiency 10/13/2010 DON GLEZ MD 459.8 1 Deep Venous Insufficiency 10/13/2010 AMARIS GOMEZ, DON 459.8 1 Deep Venous Insufficiency 10/13/2010 AMARIS GOMEZ, DON 459.8 1 Deep Venous Insufficiency 10/13/2010 AMARIS GOMEZ, DON 459.8 1 Deep Venous Insufficiency 10/13/2010 AMARIS GOMEZ, DON 459.8 1 Deep Venous Insufficiency 10/13/2010 AMARIS GOMEZ, DON 459.8 1 Deep Venous Insufficiency 03/14/2011 AMARIS GOMEZ, DON 276.8 Hypokalemia 03/14/2011 AMARIS GOMEZ, DON 276.8 Hypokalemia 03/14/2011 AMARIS GOMEZ, DON 276.8 Hypokalemia 03/14/2011 AMARIS GOEMZ, DON 276.8 Hypokalemia 03/14/2011 AMARIS GOMEZ, DON 276.8 Hypokalemia 03/14/2011 EMELY FAIRCHILD DO 276.8 Hypokalemia 03/14/2011 AMARIS GOMEZ, DON 276.8 Hypokalemia 03/14/2011 AMARIS GOMEZ, DON 276.8 Hypokalemia 03/14/2011 AMARIS GOMEZ, DON 276.8 Hypokalemia 03/14/2011 AMARIS GOMEZ, DON 276.8 Hypokalemia 03/14/2011 AMARIS GOMEZ, DON 276.8 Hypokalemia 03/14/2011 AMARIS GOMEZ, DON 276.8 Hypokalemia 03/14/2011 AMARIS GOMEZ, DON 276.8 Hypokalemia 03/14/2011 AMARIS GOMEZ, DON 276.8 Hypokalemia 03/14/2011 AMARIS GOMEZ, DON 276.8 Hypokalemia 06/29/2011 DON GLEZ MD V04.8 1 Flu Dx (medicare Only) 06/29/2011 DON GLEZ MD V04.8 1 Flu Dx (medicare Only) 06/29/2011 DON GLEZ MD V04.8 1 Flu Dx (medicare Only) 06/29/2011 DON GLEZ MD V04.8 1 Flu Dx (medicare Only) 06/29/2011 DON GLEZ MD V04.8 1 Flu Dx (medicare Only) 06/29/2011 EMELY FAIRCHILD DO V04.81 Flu Dx (medicare Only) 06/29/2011 DON GLEZ MD V04.8 1 Flu Dx (medicare Only) 06/29/2011 DON GLEZ MD V04.8 1 Flu Dx (medicare Only) 06/29/2011 DON GLEZ MD V04.8 1 Flu Dx (medicare Only) 06/29/2011 DON GLEZ MD V04.8 1 Flu Dx (medicare Only) 06/29/2011 DON GLEZ MD V04.8 1 Flu Dx (medicare Only) 06/29/2011 DON GLEZ MD V04.8 1 Flu Dx (medicare Only) 06/29/2011 AMARIS GOMEZ, DON V04.8 1 Flu Dx (medicare Only) 06/29/2011 DON GLEZ MD V04.8 1 Flu Dx (medicare Only) 06/29/2011 DON GLEZ MD V04.8 1 Flu Dx (medicare Only) 07/28/2011 DON GLEZ MD 338.4 CHRONIC PAIN SYNDROME 07/28/2011 DON GLEZ MD V03.8 2 Ppv23 (pneumovax) Dx 07/28/2011 DON GLEZ MD 338.4 CHRONIC PAIN SYNDROME 07/28/2011 DON GLEZ MD V03.8 2 Ppv23 (pneumovax) Dx 07/28/2011 DON GLEZ MD 338.4 CHRONIC PAIN SYNDROME 07/28/2011 DON GLEZ MD V03.8 2 Ppv23 (pneumovax) Dx 07/28/2011 DON GLEZ MD 338.4 CHRONIC PAIN SYNDROME 07/28/2011 DON GLEZ MD V03.8 2 Ppv23 (pneumovax) Dx 07/28/2011 DON GLEZ MD 338.4 CHRONIC PAIN SYNDROME 07/28/2011 DON GLEZ MD V03.8 2 Ppv23 (pneumovax) Dx 07/28/2011 EMELY FAIRCHILD DO 338.4 CHRONIC PAIN SYNDROME 07/28/2011 EMELY FAIRCHILD DO V03.82 Ppv23 (pneumovax) Dx 07/28/2011 DON GLEZ MD 338.4 CHRONIC PAIN SYNDROME 07/28/2011 DON GLEZ MD V03.8 2 Ppv23 (pneumovax) Dx 07/28/2011 DON GLEZ MD 338.4 CHRONIC PAIN SYNDROME 07/28/2011 AMARIS GOMEZ, DON V03.8 2 Ppv23 (pneumovax) Dx 07/28/2011 AMARIS GOMEZ, DON 338.4 CHRONIC PAIN SYNDROME 07/28/2011 DON GLEZ MD V03.8 2 Ppv23 (pneumovax) Dx 07/28/2011 AMARIS GOMEZ, DON 338.4 CHRONIC PAIN SYNDROME 07/28/2011 DON GLEZ MD V03.8 2 Ppv23 (pneumovax) Dx 07/28/2011 AMARIS GOMEZ, DON 338.4 CHRONIC PAIN SYNDROME 07/28/2011 DON GLEZ MD V03.8 2 Ppv23 (pneumovax) Dx 07/28/2011 AMARIS GOMEZ, DON 338.4 CHRONIC PAIN SYNDROME 07/28/2011 DON GLEZ MD V03.8 2 Ppv23 (pneumovax) Dx 07/28/2011 AMARIS GOMEZ, DON 338.4 CHRONIC PAIN SYNDROME 07/28/2011 DON GLEZ MD V03.8 2 Ppv23 (pneumovax) Dx 07/28/2011 DON GLEZ MD 338.4 CHRONIC PAIN SYNDROME 07/28/2011 DON GLEZ MD V03.8 2 Ppv23 (pneumovax) Dx 07/28/2011 AMARIS GOMEZ, DON 338.4 CHRONIC PAIN SYNDROME 07/28/2011 DON GLEZ MD V03.8 2 Ppv23 (pneumovax) Dx 12/15/2011 DON GLEZ MD 300.0 0 ANXIETY STATE UNSPECIFIED 12/15/2011 DON GLEZ MD 300.0 0 ANXIETY STATE UNSPECIFIED 12/15/2011 DON GLEZ MD 300.0 0 ANXIETY STATE UNSPECIFIED 12/15/2011 DON GLEZ MD 300.0 0 ANXIETY STATE UNSPECIFIED 12/15/2011 DON GLEZ MD 300.0 0 ANXIETY STATE UNSPECIFIED 12/15/2011 EMELY FAIRCHILD DO 300.00 ANXIETY STATE UNSPECIFIED 12/15/2011 DON GLEZ MD 300.0 0 ANXIETY STATE UNSPECIFIED 12/15/2011 DON GLEZ MD 300.0 0 ANXIETY STATE UNSPECIFIED 12/15/2011 DON GLEZ MD 300.0 0 ANXIETY STATE UNSPECIFIED 12/15/2011 DON GLEZ MD 300.0 0 ANXIETY STATE UNSPECIFIED 12/15/2011 AMARIS GOMEZ, DON 300.0 0 ANXIETY STATE UNSPECIFIED 12/15/2011 DON GLEZ MD 300.0 0 ANXIETY STATE UNSPECIFIED 12/15/2011 AMARIS GOMEZ, DON 300.0 0 ANXIETY STATE UNSPECIFIED 12/15/2011 DON GLEZ MD 300.0 0 ANXIETY STATE UNSPECIFIED 12/15/2011 DON GLEZ MD 300.0 0 ANXIETY STATE UNSPECIFIED 08/15/2012 DON GLEZ MD V04.8 1 FLU DX (MEDICARE ONLY) 08/15/2012 DON GLEZ MD V04.8 1 FLU DX (MEDICARE ONLY) 08/15/2012 DON GLEZ MD V04.8 1 FLU DX (MEDICARE ONLY) 08/15/2012 DON GLEZ MD V04.8 1 FLU DX (MEDICARE ONLY) 08/15/2012 EMELY FAIRCHILD DO V04.81 FLU DX (MEDICARE ONLY) 08/15/2012 DON GLEZ MD V04.8 1 FLU DX (MEDICARE ONLY) 08/15/2012 DON GLEZ MD V04.8 1 FLU DX (MEDICARE ONLY) 08/15/2012 DON GLEZ MD V04.8 1 FLU DX (MEDICARE ONLY) 08/15/2012 DON GLEZ MD V04.8 1 FLU DX (MEDICARE ONLY) 08/15/2012 DON GLEZ MD V04.8 1 FLU DX (MEDICARE ONLY) 08/15/2012 DON GLEZ MD V04.8 1 FLU DX (MEDICARE ONLY) 08/15/2012 DON GLEZ MD V04.8 1 FLU DX (MEDICARE ONLY) 08/15/2012 DON GLEZ MD V04.8 1 FLU DX (MEDICARE ONLY) 08/15/2012 DON GLEZ MD V04.8 1 FLU DX (MEDICARE ONLY) 02/13/2014 DON GLEZ MD 564.0 0 UNSPECIFIED CONSTIPATION 02/13/2014 DON GLEZ MD 564.0 0 UNSPECIFIED CONSTIPATION 02/13/2014 DON GLEZ MD 564.0 0 UNSPECIFIED CONSTIPATION 02/13/2014 DON GLEZ MD 564.0 0 UNSPECIFIED CONSTIPATION 02/13/2014 DON GLEZ MD 564.0 0 UNSPECIFIED CONSTIPATION 02/13/2014 DON GLEZ MD 564.0 0 UNSPECIFIED CONSTIPATION 08/17/2014 DON GLEZ MD V04.8 1 FLU SHOT 08/17/2014 DON GLEZ MD V04.8 1 FLU SHOT 08/17/2014 DON GLEZ MD V04.8 1 FLU SHOT 06/30/2019 LUMA SUH DO Ot D64.9 ANEMIA, UNSPECIFIED 06/30/2019 IJEOMA SUH DOI Ot E87.1 HYPO-OSMOLALITY AND HYPONATREMIA 06/30/2019 IJEOMA SUH DOI Ot E89.0 POSTPROCEDURAL HYPOTHYROIDISM 06/30/2019 VIKASH PARKER LUMA Ot F17.21 0 NICOTINE DEPENDENCE, CIGARETTES, UNCOMPL 06/30/2019 LUMA SUH DO Ot F32.9 MAJOR DEPRESSIVE DISORDER, SINGLE EPISOD 06/30/2019 VIKASH PARKER LUMA Ot F41.9 ANXIETY DISORDER, UNSPECIFIED 06/30/2019 LUMA SUH DO Ot G89.29 OTHER CHRONIC PAIN 06/30/2019 IJEOMA SUH DOI Ot H91.13 PRESBYCUSIS, BILATERAL 06/30/2019 VIKASH PARKER LUMA Ot I10 ESSENTIAL (PRIMARY) HYPERTENSION 06/30/2019 LUMA SUH DO Ot K21.9 GASTRO-ESOPHAGEAL REFLUX DISEASE WITHOUT 06/30/2019 IJEOMA SUH DOI Ot K40.30 UNIL INGUINAL HERNIA, W OBST, W/O GANGR, 06/30/2019 VIKASH PARKER LUMA Ot K41.30 UNIL FEMORAL HERNIA, W OBST, W/O GANGREN 06/30/2019 LUMA SUH DO Ot Z23 ENCOUNTER FOR IMMUNIZATION 06/30/2019 LUMA SUH DO Ot Z85.82 8 PERSONAL HISTORY OF OTHER MALIGNANT NEOP 06/30/2019 VIKASH PARKER LUMA Ot Z86.19 PERSONAL HISTORY OF OTHER INFECTIOUS AND 06/30/2019 LUMA SUH DO Ot Z86.69 PERSONAL HISTORY OF DIS OF THE NERVOUS S 12/10/2019 LILI DYE MD Ot E44 .0 MODERATE PROTEIN-CALORIE MALNUTRITION 12/10/2019 LILI DYE MD Ot 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 12/10/2019 LILI DYE MD Ot 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, STAGE 3 12/10/2019 LILI DYE MD Ot 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, STAGE 3 12/10/2019 LILI DYE MD Ot L89.623 PRESSURE ULCER OF LEFT HEEL, STAGE 3 12/10/2019 LILI DYE MD Ot 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 12/10/2019 LILI DYE MD Ot 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 12/10/2019 LILI DYE MD Ot E44 .0 MODERATE PROTEIN-CALORIE MALNUTRITION 12/10/2019 LILI DYE MD Ot 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 12/10/2019 LILI DYE MD Ot 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, STAGE 3 12/10/2019 LILI DYE MD Ot 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, STAGE 3 12/10/2019 LILI DYE MD Ot L89.623 PRESSURE ULCER OF LEFT HEEL, STAGE 3 12/10/2019 LILI DYE MD Ot 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 12/10/2019 LILI DYE MD Ot 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 12/11/2019 LILI DYE MD Ot E44 .0 MODERATE PROTEIN-CALORIE MALNUTRITION 12/11/2019 LILI DYE MD Ot 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 12/11/2019 LILI DYE MD Ot 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, STAGE 3 12/11/2019 LILI DYE MD Ot 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, STAGE 3 12/11/2019 LILI DYE MD Ot L89.623 PRESSURE ULCER OF LEFT HEEL, STAGE 3 12/11/2019 LILI DYE MD Ot 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 12/11/2019 LILI DYE MD Ot 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 12/11/2019 LILI DYE MD Ot E44 .0 MODERATE PROTEIN-CALORIE MALNUTRITION 12/11/2019 LILI DYE MD Ot 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 12/11/2019 LILI DYE MD Ot 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, STAGE 3 12/11/2019 LILI DYE MD Ot 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, STAGE 3 12/11/2019 LILI DYE MD Ot L89.623 PRESSURE ULCER OF LEFT HEEL, STAGE 3 12/11/2019 LILI DYE MD Ot 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 12/11/2019 LILI DYE MD Ot 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 12/13/2019 LILI DYE MD Ot 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, STAGE 3 12/13/2019 LILI DYE MD Ot L89.623 PRESSURE ULCER OF LEFT HEEL, STAGE 3 12/13/2019 LILI DYE MD Ot 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 12/13/2019 LILI DYE MD Ot 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0 MODERATE PROTEIN-CALORIE MALNUTRITION 12/13/2019 LILI DYE MD Ot 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 12/13/2019 LILI DYE MD Ot 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, STAGE 3 12/13/2019 LILI DYE MD Ot 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, STAGE 3 12/13/2019 LILI DYE MD Ot L89.623 PRESSURE ULCER OF LEFT HEEL, STAGE 3 12/13/2019 LILI DYE MD Ot 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 12/13/2019 LILI DYE MD Ot 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 12/13/2019 LILI DYE MD Ot E44 .0 MODERATE PROTEIN-CALORIE MALNUTRITION 12/13/2019 LILI DYE MD Ot 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 12/13/2019 LILI DYE MD Ot 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, STAGE 3 12/13/2019 LILI DYE MD Ot 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, STAGE 3 12/13/2019 LILI DYE MD Ot L89.623 PRESSURE ULCER OF LEFT HEEL, STAGE 3 12/13/2019 LILI DYE MD Ot 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 12/13/2019 LILI DYE MD Ot 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 12/13/2019 LILI DYE MD Ot 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 12/13/2019 LILI DYE MD Ot L97.412 NON-PRS CHR ULCER OF RIGHT HEEL AND MIDF 12/13/2019 LILI DYE MD Ot 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 12/13/2019 LILI DYE MD Ot 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 12/13/2019 LILI DYE MD Ot 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, STAGE 3 12/13/2019 LILI DYE MD Ot L89.623 PRESSURE ULCER OF LEFT HEEL, STAGE 3 12/13/2019 LILI DYE MD Ot 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 12/13/2019 LILI DYE MD Ot 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 12/16/2019 LILI DYE MD Ot 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, STAGE 3 12/16/2019 LILI DYE MD Ot L89.623 PRESSURE ULCER OF LEFT HEEL, STAGE 3 12/16/2019 LILI DYE MD Ot 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 12/16/2019 LILI DYE MD Ot 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 12/16/2019 LILI DYE MD Ot 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, STAGE 3 12/16/2019 LILI DYE MD Ot L89.623 PRESSURE ULCER OF LEFT HEEL, STAGE 3 12/16/2019 LILI DYE MD Ot 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 12/16/2019 LILI DYE MD Ot 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 12/19/2019 LILI DYE MD Ot 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 12/19/2019 LILI DYE MD Ot 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 12/19/2019 LILI DYE MD Ot 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 12/26/2019 LILI DYE MD Ot E44 .0 MODERATE PROTEIN-CALORIE MALNUTRITION 12/26/2019 LILI DYE MD Ot 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 12/26/2019 LILI DYE MD Ot 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, STAGE 3 12/26/2019 LILI DYE MD Ot 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, STAGE 3 12/26/2019 LILI DYE MD Ot L89.623 PRESSURE ULCER OF LEFT HEEL, STAGE 3 12/26/2019 LILI DYE MD Ot 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 12/26/2019 LILI DYE MD Ot 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 01/09/2020 LILI DYE MD Ot 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 01/09/2020 LILI DYE MD Ot 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 01/15/2020 LILI DYE MD Ot 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 01/15/2020 LILI DYE MD Ot L97.422 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 01/15/2020 LILI DYE MD Ot 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 01/15/2020 LILI DYE MD Ot 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 01/19/2020 LILI DYE MD Ot 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 01/19/2020 LILI DYE MD Ot I96 GANGRENE, NOT ELSEWHERE CLASSIFIED 01/19/2020 LILI DYE MD Ot 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 01/19/2020 LILI DYE MD Ot 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 01/30/2020 LILI DYE MD Ot 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 01/30/2020 LILI DYE MD Ot I96 GANGRENE, NOT ELSEWHERE CLASSIFIED 01/30/2020 LILI DYE MD Ot 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 01/30/2020 LILI DYE MD Ot 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 01/30/2020 LILI DYE MD Ot 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 01/30/2020 LILI DYE MD Ot 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 01/30/2020 LILI DYE MD Ot M19.91 PRIMARY OSTEOARTHRITIS, UNSPECIFIED SITE 01/30/2020 LILI DYE MD Ot 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 01/30/2020 LILI DYE MD Ot 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 01/30/2020 LILI DYE MD Ot 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 HISTORY OF NICOTINE DEPENDENCE 01/30/2020 LILI DYE MD Ot 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 01/30/2020 LILI DYE MD, Ot 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 01/30/2020 LILI DYE MD, Ot M19.91 PRIMARY OSTEOARTHRITIS, UNSPECIFIED SITE 01/30/2020 LILI DYE MD, Ot 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 01/30/2020 LILI DYE MD, Ot 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 01/30/2020 LILI DYE MD, Ot 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 HISTORY OF NICOTINE DEPENDENCE Procedures Code Description Performed By Per formed On Q2038 FLUZ ONE (MEDICARE OFFICE VISIT ONLY) 08/15/2012 G0008 FLU ADMINISTRATION (MEDICARE ONLY) 08/15/2012 72756 ROUT INE VENIPUNCTURE 11/28/2012 56088 CMP 11/28/2012 [id number] GF R CALC (RESULT ONLY) 11/28/2012 49610 TSH 11/28/2012 G0008 FLU ADMINISTRATION (MEDICARE ONLY) 08/01/2013 General S Ko Quevedo 08/29/2013 69326 ROUT INE VENIPUNCTURE 12/02/2013 69479 CMP 12/02/2013 56222 LIPI D PANEL 12/02/2013 [id number] GF R CALC (RESULT ONLY) 12/02/2013 00117 TSH 12/02/2013 86112 ROUT INE VENIPUNCTURE 08/17/2014 68355 TSH 08/17/2014 47245 ROUT INE VENIPUNCTURE 12/28/2014 [id number] GF R CALC (RESULT ONLY) 12/28/2014 13581 CMP 12/28/2014 93955 LIPI D PANEL 12/28/2014 [id number] YI PPLEMENT R INGUINAL REGION W SYNTH SUB 06/25/2019 [id number] YI PPLEMENT R FEMORAL REGION W SYNTH SUB, 06/25/2019 Results Test Result Range Comp. Metabolic Panel (14) - 10/19/16 12 :15 Glucose, Serum 99 mg/dL 65-99 BUN 15 mg/dL 8-27 Creatinine, Serum 0.76 mg/dL 0.57-1.00 eGFR If NonAfricn Am 75 mL/min/1.73 >59 eGFR If Africn Am 86 mL/min/1.73 >59 BUN/Creatinine Ratio 20 11-26 Sodium, Serum 139 mmol/L 134-144 Potassium, Serum 4.2 mmol/L 3.5-5.2 Chloride, Serum 97 mmol/L 96-106 Carbon Dioxide, Total 26 mmol/L 18-29 Calcium, Serum 9.6 mg/dL 8.7-10.3 Protein, Total, Serum 6.9 g/dL 6.0-8.5 Albumin, Serum 4.4 g/dL 3.5-4.8 Globulin, Total 2.5 g/dL 1.5-4.5 A/G Ratio 1.8 1.1-2.5 Bilirubin, Total 0.3 mg/dL 0.0-1.2 Alkaline Phosphatase, S 73 IU/L 39-117 AST (SGOT) 14 IU/L 0-40 ALT (SGPT) 12 IU/L 0-32 Vitamin D, 25-Hydroxy - 02/28/17 15:37 Vitamin D, 25-Hydroxy 45.8 ng/mL 30.0-10 0.0 CMP - 02/26/18 17:15 GLUCOSE 93 mg/dL 65-99 UREA NITROGEN (BUN) 13 mg/dL 7-25 CREATININE 0.81 mg/dL 0.60-0.88 eGFR NON-AFR. [place] 69 mL/min/1.73m2 > OR = 60 eGFR 79 mL/min/1.73m2 > OR = 60 BUN/CREATININE RATIO NOT APPLICABLE (calc) 6-22 SODIUM 135 mmol/L 135-146 POTASSIUM 3.4 mmol/L 3.5-5.3 CHLORIDE 99 mmol/L 98-110 CARBON DIOXIDE 26 mmol/L 20-31 CALCIUM 9.4 mg/dL 8.6-10.4 PROTEIN, TOTAL 6.8 g/dL 6.1-8.1 ALBUMIN 4.2 g/dL 3.6-5.1 GLOBULIN 2.6 g/dL (calc) 1.9-3.7 ALBUMIN/GLOBULIN RATIO 1.6 (calc) 1.0-2. 5 BILIRUBIN, TOTAL 0.5 mg/dL 0.2-1.2 ALKALINE PHOSPHATASE 69 U/L 33-130 AST 11 U/L 10-35 ALT 7 U/L 6-29 CBC - 02/13/19 15:55 WHITE BLOOD CELL COUNT 7.2 Thousand/uL 3 .8-10.8 RED BLOOD CELL COUNT 4.88 Million/uL 3.8 0-5.10 HEMOGLOBIN 14.3 g/dL 11.7-15.5 HEMATOCRIT 42.4 % 35.0-45.0 MCV 86.9 fL 80.0-100.0 MCH 29.3 pg 27.0-33.0 MCHC 33.7 g/dL 32.0-36.0 RDW 14.5 % 11.0-15.0 PLATELET COUNT 382 Thousand/uL 140-400 MPV 9.0 fL 7.5-12.5 ABSOLUTE NEUTROPHILS 4075 cells/uL 1500- 7800 ABSOLUTE LYMPHOCYTES 2189 cells/uL 850-3 900 ABSOLUTE MONOCYTES 641 cells/uL 200-950 ABSOLUTE EOSINOPHILS 238 cells/uL 15-500 ABSOLUTE BASOPHILS 58 cells/uL 0-200 NEUTROPHILS 56.6 % NRG LYMPHOCYTES 30.4 % NRG MONOCYTES 8.9 % NRG EOSINOPHILS 3.3 % NRG BASOPHILS 0.8 % NRG CRP - 02/13/19 15:55 C-REACTIVE PROTEIN 3.1 mg/L <8.0 CMP - 04/15/19 16:58 GLUCOSE 118 mg/dL 65-99 UREA NITROGEN (BUN) 14 mg/dL 7-25 CREATININE 0.70 mg/dL 0.60-0.88 eGFR NON-AFR. [place] 81 mL/min/1.73m2 > OR = 60 eGFR 94 mL/min/1.73m2 > OR = 60 BUN/CREATININE RATIO NOT APPLICABLE (calc) 6-22 SODIUM 123 mmol/L 135-146 POTASSIUM 4.0 mmol/L 3.5-5.3 CHLORIDE 90 mmol/L 98-110 CARBON DIOXIDE 23 mmol/L 20-32 CALCIUM 9.2 mg/dL 8.6-10.4 PROTEIN, TOTAL 6.7 g/dL 6.1-8.1 ALBUMIN 4.2 g/dL 3.6-5.1 GLOBULIN 2.5 g/dL (calc) 1.9-3.7 ALBUMIN/GLOBULIN RATIO 1.7 (calc) 1.0-2. 5 BILIRUBIN, TOTAL 0.7 mg/dL 0.2-1.2 ALKALINE PHOSPHATASE 66 U/L 33-130 AST 10 U/L 10-35 ALT 9 U/L 6-29 BMP - 04/23/19 15:12 GLUCOSE 138 mg/dL 65-99 UREA NITROGEN (BUN) 10 mg/dL 7-25 CREATININE 0.55 mg/dL 0.60-0.88 eGFR NON-AFR. [place] 88 mL/min/1.73m2 > OR = 60 eGFR 102 mL/min/1.73m2 > OR = 60 BUN/CREATININE RATIO 18 (calc) 6-22 SODIUM 128 mmol/L 135-146 POTASSIUM 3.9 mmol/L 3.5-5.3 CHLORIDE 94 mmol/L 98-110 CARBON DIOXIDE 25 mmol/L 20-32 CALCIUM 9.0 mg/dL 8.6-10.4 Complete blood count (CBC) with automate d white blood cell (WBC) differential - 06/25/19 12:25 Blood leukocytes automated count (number/volume) 6.8 10*3/uL 4.3-11.0 Blood erythrocytes automated count (number/volume) 4.78 10*6/uL 4.35-5.85 Venous blood hemoglobin measurement (mass/volume) 14.4 g/dL 11.5-16.0 Blood hematocrit (volume fraction) 40 % 35-52 Automated erythrocyte mean corpuscular volume 84 [ foz_us] 80-99 Automated erythrocyte mean corpuscular h emoglobin (mass per erythrocyte) 30 pg 25-34 Automated erythrocyte mean corpuscular h emoglobin concentration measurement (mass/volume) 36 g/dL 32-36 Automated erythrocyte distribution width ratio 13. 7 % 10.0- 14.5 Automated blood platelet count (count/volume) 396 10*3/uL 130-400 Automated blood platelet mean volume measurement 9.3 [foz_us] 7.4-10.4 Automated blood neutrophils/100 leukocytes 66 % 42-75 Automated blood lymphocytes/100 leukocytes 17 % 12-44 Blood monocytes/100 leukocytes 16 % 0-12 Automated blood eosinophils/100 leukocytes 0 % 0-10 Automated blood basophils/100 leukocytes 0 % 0-10 Blood neutrophils automated count (number/volume) 4.5 10*3 1.8-7.8 Blood lymphocytes automated count (number/volume) 1.2 10*3 1.0-4.0 Blood monocytes automated count (number/volume) 1. 1 10*3 0.0-1.0 Automated eosinophil count 0.0 10*3/uL 0 .0-0.3 Automated blood basophil count (count/volume) 0.0 10*3/uL 0.0-0.1 Blood lactic acid measurement (moles/vol ume) - 06/25/19 12:25 Blood lactic acid measurement (moles/volume) 1.34 mmol/L 0.50-2.00 PT panel in platelet poor plasma by coag ulation assay - 06/25/19 14:55 Prothrombin time (PT) in platelet poor plasma by coagu lation assay 13.5 s 12.2-14.7 INR in platelet poor plasma or blood by coagulation as say 1.0 0.8-1.4 Comprehensive metabolic panel - 06/25/19 15:25 Serum or plasma sodium measurement (moles/volume) 133 mmol/L 135-145 Serum or plasma potassium measurement (moles/volume) 3.1 mmol/L 3.6-5.0 Serum or plasma chloride measurement (moles/volume) 89 mmol/L 98-107 Carbon dioxide 27 mmol/L 21-32 Serum or plasma anion gap determination (moles/volume) 17 mmol/L 5-14 Serum or plasma urea nitrogen measurement (mass/volume ) 37 mg/dL 7-18 Serum or plasma creatinine measurement (mass/volume) 0.80 mg/dL 0.60-1.30 Serum or plasma urea nitrogen/creatinine mass ratio 46 NRG Serum or plasma creatinine measurement w ith calculation of estimated glomerular filtration rate > NRG Serum or plasma glucose measurement (mass/volume) 121 mg/dL 70-105 Serum or plasma calcium measurement (mass/volume) 10.4 mg/dL 8.5-10.1 Serum or plasma total bilirubin measurement (mass/volu me) 0.6 mg/dL 0.1-1.0 Serum or plasma alkaline phosphatase levon surement (enzymatic activity/volume) 63 U/L 40-136 Serum or plasma aspartate aminotransfera se measurement (enzymatic activity/volume) 13 U/L 5-34 Serum or plasma alanine aminotransferase measurement (enzymatic activity/volume) 9 U/L 0-55 Serum or plasma protein measurement (mass/volume) 7.2 g/dL 6.4-8.2 Serum or plasma albumin measurement (mass/volume) 4.1 g/dL 3.2-4.5 CALCIUM CORRECTED 10.3 mg/dL 8.5-10.1 Serum or plasma troponin i.cardiac measu rement (mass/volume) - 06/25/19 15:25 Serum or plasma troponin i.cardiac measurement (mass/v olume) 0.028 ng/mL <0.028 Lipase - 06/25/19 15:25 Lipase 15 U/L 8-78 Magnesium - 06/25/19 15:25 Magnesium 2.1 mg/dL 1.6-2.4 Complete urinalysis with reflex to cultu re - 06/25/19 16:50 Urine color determination MILY NRG Urine clarity determination CLEAR NR G Urine pH measurement by test strip 5 5-9 Specific gravity of urine by test strip 1.015 1.016-1.022 Urine protein assay by test strip, semi-quantitative 2+ NEGATIVE Urine glucose detection by automated test strip NE GATIVE NEGATIVE Erythrocytes detection in urine sediment by light micr oscopy NEGATIVE NEGATIVE Urine ketones detection by automated test strip 3+ NEGATIVE Urine nitrite detection by test strip NEGATIVE NEGATIVE Urine total bilirubin detection by test strip 1+ NEGATIVE Urine urobilinogen measurement by automated test strip (mass/volume) NORMAL NORMAL Urine leukocyte esterase detection by dipstick 1+ NEGATIVE Automated urine sediment erythrocyte cou nt by microscopy (number/high power field) NONE NRG Automated urine sediment leukocyte count by microscopy (number/high power field) NONE NRG Bacteria detection in urine sediment by light microsco py TRACE NRG Squamous epithelial cells detection in u rine sediment by light microscopy NONE NRG Crystals detection in urine sediment by light microsco py NONE NRG Casts detection in urine sediment by light microscopy NONE NRG Mucus detection in urine sediment by light microscopy SMALL NRG Complete urinalysis with reflex to culture NO NRG WBC casts detection in urine sediment by light microsc opy RARE NRG Urine drug screening test - 06/25/19 16: 50 Urine phencyclidine detection by screening method NEGATIVE NEGATIVE Urine benzodiazepines detection by screening method POSITIVE NEGATIVE Urine cocaine detection NEGATIVE NEGATI VE Urine amphetamines detection by screening method N EGATIVE NEGATIVE Urine methamphetamine detection by screening method NEGATIVE NEGATIVE Urine cannabinoids detection by screening method N EGATIVE NEGATIVE Urine opiates detection by screening method POSITI VE NEGATIVE Urine barbiturates detection NEGATIVE N EGATIVE Screening urine tricyclic antidepressants detection NEGATIVE NEGATIVE Urine methadone detection by screening method NEGA TIVE NEGATIVE Urine oxycodone detection POSITIVE NEGA TIVE Urine propoxyphene detection NEGATIVE N EGATIVE Complete blood count (CBC) with automate d white blood cell (WBC) differential - 06/26/19 04:40 Blood leukocytes automated count (number/volume) 7.4 10*3/uL 4.3-11.0 Blood erythrocytes automated count (number/volume) 4.01 10*6/uL 4.35-5.85 Venous blood hemoglobin measurement (mass/volume) 11.8 g/dL 11.5-16.0 Blood hematocrit (volume fraction) 34 % 35-52 Automated erythrocyte mean corpuscular volume 84 [ foz_us] 80-99 Automated erythrocyte mean corpuscular h emoglobin (mass per erythrocyte) 29 pg 25-34 Automated erythrocyte mean corpuscular h emoglobin concentration measurement (mass/volume) 35 g/dL 32-36 Automated erythrocyte distribution width ratio 13. 7 % 10.0- 14.5 Automated blood platelet count (count/volume) 342 10*3/uL 130-400 Automated blood platelet mean volume measurement 9.6 [foz_us] 7.4-10.4 Automated blood neutrophils/100 leukocytes 77 % 42-75 Automated blood lymphocytes/100 leukocytes 11 % 12-44 Blood monocytes/100 leukocytes 13 % 0-12 Automated blood eosinophils/100 leukocytes 0 % 0-10 Automated blood basophils/100 leukocytes 0 % 0-10 Blood neutrophils automated count (number/volume) 5.7 10*3 1.8-7.8 Blood lymphocytes automated count (number/volume) 0.8 10*3 1.0-4.0 Blood monocytes automated count (number/volume) 0. 9 10*3 0.0-1.0 Automated eosinophil count 0.0 10*3/uL 0 .0-0.3 Automated blood basophil count (count/volume) 0.0 10*3/uL 0.0-0.1 Comprehensive metabolic panel - 06/26/19 04:40 Serum or plasma sodium measurement (moles/volume) 134 mmol/L 135-145 Serum or plasma potassium measurement (moles/volume) 3.0 mmol/L 3.6-5.0 Serum or plasma chloride measurement (moles/volume) 93 mmol/L 98-107 Carbon dioxide 27 mmol/L 21-32 Serum or plasma anion gap determination (moles/volume) 14 mmol/L 5-14 Serum or plasma urea nitrogen measurement (mass/volume ) 28 mg/dL 7-18 Serum or plasma creatinine measurement (mass/volume) 0.70 mg/dL 0.60-1.30 Serum or plasma urea nitrogen/creatinine mass ratio 40 NRG Serum or plasma creatinine measurement w ith calculation of estimated glomerular filtration rate > NRG Serum or plasma glucose measurement (mass/volume) 114 mg/dL 70-105 Serum or plasma calcium measurement (mass/volume) 9.0 mg/dL 8.5-10.1 Serum or plasma total bilirubin measurement (mass/volu me) 0.4 mg/dL 0.1-1.0 Serum or plasma alkaline phosphatase levon surement (enzymatic activity/volume) 45 U/L 40-136 Serum or plasma aspartate aminotransfera se measurement (enzymatic activity/volume) 14 U/L 5-34 Serum or plasma alanine aminotransferase measurement (enzymatic activity/volume) 6 U/L 0-55 Serum or plasma protein measurement (mass/volume) 5.8 g/dL 6.4-8.2 Serum or plasma albumin measurement (mass/volume) 3.3 g/dL 3.2-4.5 CALCIUM CORRECTED 9.6 mg/dL 8.5-10.1 Complete blood count (CBC) with automate d white blood cell (WBC) differential - 06/27/19 05:29 Blood leukocytes automated count (number/volume) 7.9 10*3/uL 4.3-11.0 Blood erythrocytes automated count (number/volume) 3.86 10*6/uL 4.35-5.85 Venous blood hemoglobin measurement (mass/volume) 11.4 g/dL 11.5-16.0 Blood hematocrit (volume fraction) 33 % 35-52 Automated erythrocyte mean corpuscular volume 85 [ foz_us] 80-99 Automated erythrocyte mean corpuscular h emoglobin (mass per erythrocyte) 30 pg 25-34 Automated erythrocyte mean corpuscular h emoglobin concentration measurement (mass/volume) 35 g/dL 32-36 Automated erythrocyte distribution width ratio 13. 5 % 10.0- 14.5 Automated blood platelet count (count/volume) 301 10*3/uL 130-400 Automated blood platelet mean volume measurement 9.2 [foz_us] 7.4-10.4 Automated blood neutrophils/100 leukocytes 54 % 42-75 Automated blood lymphocytes/100 leukocytes 29 % 12-44 Blood monocytes/100 leukocytes 17 % 0-12 Automated blood eosinophils/100 leukocytes 1 % 0-10 Automated blood basophils/100 leukocytes 0 % 0-10 Blood neutrophils automated count (number/volume) 4.2 10*3 1.8-7.8 Blood lymphocytes automated count (number/volume) 2.2 10*3 1.0-4.0 Blood monocytes automated count (number/volume) 1. 3 10*3 0.0-1.0 Automated eosinophil count 0.1 10*3/uL 0 .0-0.3 Automated blood basophil count (count/volume) 0.0 10*3/uL 0.0-0.1 Comprehensive metabolic panel - 06/27/19 05:29 Serum or plasma sodium measurement (moles/volume) 134 mmol/L 135-145 Serum or plasma potassium measurement (moles/volume) 3.6 mmol/L 3.6-5.0 Serum or plasma chloride measurement (moles/volume) 101 mmol/L 98-107 Carbon dioxide 25 mmol/L 21-32 Serum or plasma anion gap determination (moles/volume) 8 mmol/L 5-14 Serum or plasma urea nitrogen measurement (mass/volume ) 20 mg/dL 7-18 Serum or plasma creatinine measurement (mass/volume) 0.58 mg/dL 0.60-1.30 Serum or plasma urea nitrogen/creatinine mass ratio 34 NRG Serum or plasma creatinine measurement w ith calculation of estimated glomerular filtration rate > NRG Serum or plasma glucose measurement (mass/volume) 92 mg/dL 70-105 Serum or plasma calcium measurement (mass/volume) 7.9 mg/dL 8.5-10.1 Serum or plasma total bilirubin measurement (mass/volu me) 0.4 mg/dL 0.1-1.0 Serum or plasma alkaline phosphatase levon surement (enzymatic activity/volume) 48 U/L 40-136 Serum or plasma aspartate aminotransfera se measurement (enzymatic activity/volume) 17 U/L 5-34 Serum or plasma alanine aminotransferase measurement (enzymatic activity/volume) 9 U/L 0-55 Serum or plasma protein measurement (mass/volume) 4.9 g/dL 6.4-8.2 Serum or plasma albumin measurement (mass/volume) 2.9 g/dL 3.2-4.5 CALCIUM CORRECTED 8.8 mg/dL 8.5-10.1 Comprehensive metabolic panel - 06/28/19 05:30 Serum or plasma sodium measurement (moles/volume) 133 mmol/L 135-145 Serum or plasma potassium measurement (moles/volume) 4.6 mmol/L 3.6-5.0 Serum or plasma chloride measurement (moles/volume) 104 mmol/L 98-107 Carbon dioxide 20 mmol/L 21-32 Serum or plasma anion gap determination (moles/volume) 9 mmol/L 5-14 Serum or plasma urea nitrogen measurement (mass/volume ) 12 mg/dL 7-18 Serum or plasma creatinine measurement (mass/volume) 0.55 mg/dL 0.60-1.30 Serum or plasma urea nitrogen/creatinine mass ratio 22 NRG Serum or plasma creatinine measurement w ith calculation of estimated glomerular filtration rate > NRG Serum or plasma glucose measurement (mass/volume) 85 mg/dL 70-105 Serum or plasma calcium measurement (mass/volume) 7.8 mg/dL 8.5-10.1 Serum or plasma total bilirubin measurement (mass/volu me) 0.4 mg/dL 0.1-1.0 Serum or plasma alkaline phosphatase levon surement (enzymatic activity/volume) 43 U/L 40-136 Serum or plasma aspartate aminotransfera se measurement (enzymatic activity/volume) 11 U/L 5-34 Serum or plasma alanine aminotransferase measurement (enzymatic activity/volume) 7 U/L 0-55 Serum or plasma protein measurement (mass/volume) 5.0 g/dL 6.4-8.2 Serum or plasma albumin measurement (mass/volume) 2.8 g/dL 3.2-4.5 CALCIUM CORRECTED 8.8 mg/dL 8.5-10.1 Complete blood count (CBC) with automate d white blood cell (WBC) differential - 06/28/19 05:30 Blood leukocytes automated count (number/volume) 8.7 10*3/uL 4.3-11.0 Blood erythrocytes automated count (number/volume) 3.84 10*6/uL 4.35-5.85 Venous blood hemoglobin measurement (mass/volume) 11.1 g/dL 11.5-16.0 Blood hematocrit (volume fraction) 33 % 35-52 Automated erythrocyte mean corpuscular volume 86 [ foz_us] 80-99 Automated erythrocyte mean corpuscular h emoglobin (mass per erythrocyte) 29 pg 25-34 Automated erythrocyte mean corpuscular h emoglobin concentration measurement (mass/volume) 34 g/dL 32-36 Automated erythrocyte distribution width ratio 13. 9 % 10.0- 14.5 Automated blood platelet count (count/volume) 328 10*3/uL 130-400 Automated blood platelet mean volume measurement 9.8 [foz_us] 7.4-10.4 Automated blood neutrophils/100 leukocytes 63 % 42-75 Automated blood lymphocytes/100 leukocytes 21 % 12-44 Blood monocytes/100 leukocytes 16 % 0-12 Automated blood eosinophils/100 leukocytes 1 % 0-10 Automated blood basophils/100 leukocytes 0 % 0-10 Blood neutrophils automated count (number/volume) 5.5 10*3 1.8-7.8 Blood lymphocytes automated count (number/volume) 1.8 10*3 1.0-4.0 Blood monocytes automated count (number/volume) 1. 4 10*3 0.0-1.0 Automated eosinophil count 0.1 10*3/uL 0 .0-0.3 Automated blood basophil count (count/volume) 0.0 10*3/uL 0.0-0.1 Automated blood complete blood count (he mogram) panel - 06/29/19 06:33 Blood leukocytes automated count (number/volume) 12.4 10*3/uL 4.3-11.0 Blood erythrocytes automated count (number/volume) 4.01 10*6/uL 4.35-5.85 Venous blood hemoglobin measurement (mass/volume) 11.9 g/dL 11.5-16.0 Blood hematocrit (volume fraction) 34 % 35-52 Automated erythrocyte mean corpuscular volume 86 [ foz_us] 80-99 Automated erythrocyte mean corpuscular h emoglobin (mass per erythrocyte) 30 pg 25-34 Automated erythrocyte mean corpuscular h emoglobin concentration measurement (mass/volume) 35 g/dL 32-36 Automated erythrocyte distribution width ratio 13. 8 % 10.0- 14.5 Automated blood platelet count (count/volume) 334 10*3/uL 130-400 Automated blood platelet mean volume measurement 9.7 [foz_us] 7.4-10.4 Whole blood basic metabolic panel - 06/17 12/03 06:33 Serum or plasma sodium measurement (moles/volume) 128 mmol/L 135-145 Serum or plasma potassium measurement (moles/volume) 5.0 mmol/L 3.6-5.0 Serum or plasma chloride measurement (moles/volume) 101 mmol/L 98-107 Carbon dioxide 19 mmol/L 21-32 Serum or plasma anion gap determination (moles/volume) 8 mmol/L 5-14 Serum or plasma urea nitrogen measurement (mass/volume ) 7 mg/dL 7-18 Serum or plasma creatinine measurement (mass/volume) 0.51 mg/dL 0.60-1.30 Serum or plasma urea nitrogen/creatinine mass ratio 14 NRG Serum or plasma creatinine measurement w ith calculation of estimated glomerular filtration rate > NRG Serum or plasma glucose measurement (mass/volume) 61 mg/dL 70-105 Serum or plasma calcium measurement (mass/volume) 8.0 mg/dL 8.5-10.1 Magnesium - 06/29/19 06:33 Magnesium 1.3 mg/dL 1.6-2.4 Complete blood count (CBC) with automate d white blood cell (WBC) differential - 06/30/19 06:00 Blood leukocytes automated count (number/volume) 11.9 10*3/uL 4.3-11.0 Blood erythrocytes automated count (number/volume) 3.90 10*6/uL 4.35-5.85 Venous blood hemoglobin measurement (mass/volume) 11.5 g/dL 11.5-16.0 Blood hematocrit (volume fraction) 34 % 35-52 Automated erythrocyte mean corpuscular volume 87 [ foz_us] 80-99 Automated erythrocyte mean corpuscular h emoglobin (mass per erythrocyte) 29 pg 25-34 Automated erythrocyte mean corpuscular h emoglobin concentration measurement (mass/volume) 34 g/dL 32-36 Automated erythrocyte distribution width ratio 14. 2 % 10.0- 14.5 Automated blood platelet count (count/volume) 370 10*3/uL 130-400 Automated blood platelet mean volume measurement 9.2 [foz_us] 7.4-10.4 Automated blood neutrophils/100 leukocytes 61 % 42-75 Automated blood lymphocytes/100 leukocytes 24 % 12-44 Blood monocytes/100 leukocytes 13 % 0-12 Automated blood eosinophils/100 leukocytes 2 % 0-10 Automated blood basophils/100 leukocytes 1 % 0-10 Blood neutrophils automated count (number/volume) 7.2 10*3 1.8-7.8 Blood lymphocytes automated count (number/volume) 2.8 10*3 1.0-4.0 Blood monocytes automated count (number/volume) 1. 5 10*3 0.0-1.0 Automated eosinophil count 0.2 10*3/uL 0 .0-0.3 Automated blood basophil count (count/volume) 0.1 10*3/uL 0.0-0.1 Comprehensive metabolic panel - 06/30/19 06:00 Serum or plasma sodium measurement (moles/volume) 132 mmol/L 135-145 Serum or plasma potassium measurement (moles/volume) 4.7 mmol/L 3.6-5.0 Serum or plasma chloride measurement (moles/volume) 102 mmol/L 98-107 Carbon dioxide 21 mmol/L 21-32 Serum or plasma anion gap determination (moles/volume) 9 mmol/L 5-14 Serum or plasma urea nitrogen measurement (mass/volume ) 7 mg/dL 7-18 Serum or plasma creatinine measurement (mass/volume) 0.52 mg/dL 0.60-1.30 Serum or plasma urea nitrogen/creatinine mass ratio 13 NRG Serum or plasma creatinine measurement w ith calculation of estimated glomerular filtration rate > NRG Serum or plasma glucose measurement (mass/volume) 72 mg/dL 70-105 Serum or plasma calcium measurement (mass/volume) 8.1 mg/dL 8.5-10.1 Serum or plasma total bilirubin measurement (mass/volu me) 0.4 mg/dL 0.1-1.0 Serum or plasma alkaline phosphatase levon surement (enzymatic activity/volume) 57 U/L 40-136 Serum or plasma aspartate aminotransfera se measurement (enzymatic activity/volume) 13 U/L 5-34 Serum or plasma alanine aminotransferase measurement (enzymatic activity/volume) 9 U/L 0-55 Serum or plasma protein measurement (mass/volume) 5.1 g/dL 6.4-8.2 Serum or plasma albumin measurement (mass/volume) 2.9 g/dL 3.2-4.5 CALCIUM CORRECTED 9.0 mg/dL 8.5-10.1 CRP - 12/02/19 16:43 C-REACTIVE PROTEIN 11.4 mg/L <8.0 Prealbumin - 12/04/19 16:07 Serum or plasma prealbumin measurement (mass/volume) 19.0 % 18.0-37.0 Encounters ACCT No. Visit Date/Time Discharge Status Pt. Type Provider Facility Loc./Unit Complaint [id number] 10/20/2016 08:41:00 Document Registration [id number] 03/01/2017 10:09:00 Document Registration [id number] 01/29/2020 13:55:00 23:59:59 CLS Outpatient LILI DYE MD [facility] [id number] 01/15/2020 13:46:00 23:59:59 CLS Outpatient LILI DYE MD [facility] [id number] 01/01/2020 13:44:00 23:59:59 CLS Outpatient LILI DYE MD [facility] [id number] 12/18/2019 14:05:00 23:59:59 CLS Outpatient LILI DYE MD [facility] [id number] 12/11/2019 14:37:00 23:59:59 CLS Outpatient LILI DYE MD [facility] [id number] 12/11/2019 13:39:00 23:59:59 CLS Outpatient LILI DYE MD [facility] [id number] 12/04/2019 15:54:00 23:59:59 CLS Outpatient LILI DYE MD [facility] LAB PRESSURE ULCER OF RIGHT HEEL [id number] 12/04/2019 13:57:00 23:59:59 CLS Outpatient LILI DYE MD [facility] [id number] 06/25/2019 20:28:00 019 15:45:00 DIS Inpatient LUMA SUH DO [facility] 4TH INCARCERATED FEMORAL HE RNIA, PSBO [id number] 11/07/2013 06:30:00 014 10:05:00 DIS Outpatient [id number] 11/06/2013 13:13:00 014 23:59:59 CLS Outpatient [id number] 02/12/2020 13:49:[address] Outpatient HARDIK GOMEZ, LII[facility] [place] [facility] [id number] 12/02/2019 16:00:00 12/02/2019 23:59:5 9 CLS Outpatient DON GLEZ MD [facility] [id number] 12/02/2019 16:00:00 Document Registration [id number] 04/23/2019 15:00:00 Document Registration [id number] 04/15/2019 16:00:00 Document Registration [id number] 02/13/2019 15:20:00 Document Registration [id number] 02/26/2018 16:20:00 Document Registration [id number] 12/28/2014 11:06:00 12/28/2014 23:59: 59 CLS Outpatient DON GLEZ MD [id number] 11/23/2014 13:57:00 11/23/2014 23:59: 59 CLS Outpatient DON GLEZ MD [id number] 08/17/2014 14:20:00 08/17/2014 23:59: 59 CLS Outpatient DON GLEZ MD [id number] 05/26/2014 14:45:00 05/26/2014 23:59: 59 CLS Outpatient DON GLEZ MD [id number] 05/12/2014 15:43:00 05/12/2014 23:59: 59 CLS Outpatient DON GLEZ MD [id number] 02/13/2014 13:54:00 02/13/2014 23:59: 59 CLS Outpatient DON GLEZ MD [id number] 12/02/2013 08:20:00 12/02/2013 23:59: 59 CLS Outpatient DON GLEZ MD [id number] 11/25/2013 15:46:00 11/25/2013 23:59: 59 CLS Outpatient DON GLEZ MD [id number] 08/29/2013 14:18:00 08/29/2013 23:59: 59 CLS Outpatient DON GLEZ MD [id number] 08/01/2013 13:56:00 08/01/2013 23:59: 59 CLS Outpatient EMELY FAIRCHILD DO [id number] 06/06/2013 12:58:00 06/06/2013 23:59: 59 CLS Outpatient DON GLEZ MD [id number] 03/10/2013 13:59:00 03/10/2013 23:59: 59 CLS Outpatient DON GLEZ MD [id number] 11/28/2012 14:55:00 11/28/2012 23:59: 59 CLS Outpatient DON GLEZ MD [id number] 08/15/2012 12:55:00 08/15/2012 23:59: 59 CLS Outpatient DON GLEZ MD [id number] 2012 14:39:00 2012 23:59:5 9 CLS Outpatient DON GLEZ MD
--- NOTE | 2020-02-13 16:51 | ED Abdominal Pain ---
General Chief Complaint: Abdominal/GI Problems Stated Complaint: CONSTIPATION Source of Information: Patient Exam Limitations: No Limitations History of Present Illness Date Seen by Provider: February 13, 2020 Time Seen by Provider: 16:49 Initial Comments To ER by her vehicle from home with reports of constipation. Has had no bowel movement in over a week despite trying a multitude of laxatives [id number]. She was seen at [facility] allegedly and determined to need an enema, was referred to the emergency room to facilitate this.. Timing/Duration: 1-2 Days Severity/Quality: Moderate Location: Generalized Abdomen Radiation: No Radiation Activities at Onset: None Allergies and Home Medications Allergies Coded Allergies: Penicillins (Unverified Allergy, Unknown, 06/25/19) Sulfa (Sulfonamide Antibiotics) (Verified Allergy, Unknown, 06/25/19) gabapentin (Verified Allergy, Unknown, 06/25/19) hydrochlorothiazide (Verified Allergy, Unknown, 06/25/19) lisinopril (Verified Allergy, Unknown, 06/25/19) losartan (Verified Allergy, Unknown, 06/25/19) pregabalin (Verified Allergy, Unknown, 06/25/19) sulfamethoxazole (Verified Allergy, Unknown, 06/25/19) trimethoprim (Verified Allergy, Unknown, 06/25/19) Home Medications Betamethasone/Propylene Glyc 15 Gm Cream..g., TP BID, (Reported) APPLY TO AFFECTED AREAS ON HANDS ARMS AND FEET Bimatoprost 2.5 Ml Drops, 1 DROP OU HS, (Reported) Bisacodyl 5 Mg Tablet.dr, 5 MG PO HS, (Reported) Brimonidine Tartrate/Timolol 5 Ml Drops, 1 DROP OU BID, (Reported) Clorazepate Dipotassium 7.5 Mg Tablet, 7.5 MG PO DAILY PRN for ANXIETY, (Reported) Diclofenac Sodium 100 Gm Gel..gram., TP QID PRN for JOINT PAIN, (Reported) Docusate Sodium 250 Mg Capsule, 250 MG PO DAILY, (Reported) Ergocalciferol (Vitamin D2) 50,000 Unit Capsule, 50,000 UNIT PO Fr, (Reported) Felodipine 10 Mg Tab.er.24h, 10 MG PO DAILY, (Reported) Fentanyl 1 Each Patch.td72, 75 MCG PO Q72H@1800, (Reported) Hydrochlorothiazide 25 Mg Tablet, 25 MG PO DAILY, (Reported) Hydrocodone Bit/Acetaminophen 1 Each Tablet, 1 TAB PO Q4H PRN for NAUSEA/VOMITING-1ST LINE, (Reported) Levothyroxine Sodium 100 Mcg Tablet, 100 MCG PO DAILY, (Reported) Loratadine 10 Mg Tablet, 10 MG PO DAILY PRN for ALLERGIES, (Reported) Ondansetron 4 Mg Tab.rapdis, 4 MG PO Q6H PRN for NAUSEA/VOMITING-1ST LINE, (Reported) Polyethylene Glycol 3350 17 Gm Powd.pack, 17 GM PO DAILY PRN for CONSTIPATION- 2ND LINE, (Reported) Potassium Chloride 10 Meq Tab.er.prt, 10 MEQ PO BID, (Reported) Pravastatin Sodium 40 Mg Tablet, 40 MG PO HS, (Reported) Propylene Glycol/Peg 400 10 Ml Drops.gel, 1 DROP OU DAILY PRN for DRY EYES, (Reported) Ranitidine HCl 150 Mg Tablet, 150 MG PO BID, (Reported) Sennosides 8.6 Mg Tablet, 2 TAB PO DAILY, (Reported) Sennosides/Docusate Sodium 1 Each Tablet, 2 TAB PO HS, (Reported) Patient Home Medication List Home Medication List Reviewed: Yes Review of Systems Review of Systems Constitutional: see HPI EENTM: No Symptoms Reported Respiratory: No Symptoms Reported Cardiovascular: No Symptoms Reported Gastrointestinal: See HPI, Abdominal Pain Genitourinary: No Symptoms Reported Musculoskeletal: no symptoms reported Skin: no symptoms reported Psychiatric/Neurological: No Symptoms Reported Endocrine: No Symptoms Reported Hematologic/Lymphatic: No Symptoms Reported Past Mqohixb-Zuomvh-Rfmqil Hx Patient Social History Type Used: Cigarettes 2nd Hand Smoke Exposure: Yes Recent Hopitalizations: Yes (ENCEPHALITIS 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 oz. [id number]; 25.00 BMI Method: General Appearance: WD/WN, no apparent distress Respiratory: normal breath sounds, no respiratory distress, no accessory muscle use Gastrointestinal: normal bowel sounds, soft, tenderness (Left lower abdomen tender to palpation. Bowel sounds are normal.) Extremities: normal range of motion, non-tender Neurologic/Psychiatric: alert, normal mood/affect, oriented x 3 Skin: normal color, warm/dry Progress/Results/Core Measures Results/Orders Lab Results Laboratory Tests Test 02/13/20 16:45 Range/Units White Blood Count 7.3 4.3-11.0 10^3/uL Red Blood Count 3.87 L 4.35-5.85 10^6/uL Hemoglobin 11.4 L 11.5-16.0 G/DL Hematocrit 34 L 35-52 % Mean Corpuscular Volume 87 80-99 FL Mean Corpuscular Hemoglobin 29 25-34 PG Mean Corpuscular Hemoglobin Concent 34 32-36 G/DL Red Cell Distribution Width 14.1 10.0-14.5 % Platelet Count 339 130-400 10^3/uL Mean Platelet Volume 9.6 7.4-10.4 FL Neutrophils (%) (Auto) 63 42-75 % Lymphocytes (%) (Auto) 29 12-44 % Monocytes (%) (Auto) 8 0-12 % Eosinophils (%) (Auto) 0 0-10 % Basophils (%) (Auto) 0 0-10 % Neutrophils # (Auto) 4.6 1.8-7.8 X 10^3 Lymphocytes # (Auto) 2.1 1.0-4.0 X 10^3 Monocytes # (Auto) 0.6 0.0-1.0 X 10^3 Eosinophils # (Auto) 0.0 0.0-0.3 10^3/uL Basophils # (Auto) 0.0 0.0-0.1 10^3/uL Sodium Level 135 135-145 MMOL/L Potassium Level 3.6 3.6-5.0 MMOL/L Chloride Level 104 98-107 MMOL/L Carbon Dioxide Level 20 L 21-32 MMOL/L Anion Gap 11 5-14 MMOL/L Blood Urea Nitrogen 12 7-18 MG/DL Creatinine 0.61 0.60-1.30 MG/DL Estimat Glomerular Filtration Rate > 60 BUN/Creatinine Ratio 20 Glucose Level 99 70-105 MG/DL Calcium Level 9.1 8.5-10.1 MG/DL Corrected Calcium 9.3 8.5-10.1 MG/DL Total Bilirubin 0.4 0.1-1.0 MG/DL Aspartate Amino Transf (AST/SGOT) 16 5-34 U/L Alanine Aminotransferase (ALT/SGPT) 6 0-55 U/L Alkaline Phosphatase 79 40-136 U/L Total Protein 6.7 6.4-8.2 GM/DL Albumin 3.8 3.2-4.5 GM/DL Lipase 8 8-78 U/L My Orders Orders - PRITI ALVAREZ APRN Na Phos/Na Biphos Enema (Fleet Enema Hernandez (02/13/20 16:45) Cbc With Automated Diff (02/13/20 16:48) Comprehensive Metabolic Panel (02/13/20 16:48) Lipase (02/13/20 16:48) Ct Abdomen/Pelvis Wo (02/13/20 16:48) Methylnaltrexone Injection (Relistor Inj (02/13/20 18:30) Magnesium Citrate Oral Soln (Citrate Of (02/13/20 18:30) Diagnostic Imaging Diagonstic Imaging: CT Comments NAME: LILIYA TATUM [facility] REC#: [id number] PT STATUS: REG ER : 1937 PHYSICIAN: PRITI ALVAREZ APRN ADMIT DATE: 02/13/20/ER Draft Date of Exam:02/13/20 CT ABDOMEN/PELVIS WO EXAM: CT abdomen and pelvis Without Intravenous Contrast. INDICATION: Constipation. Left lower quadrant pain. COMPARISON: 06/25/2019. FINDINGS: There is a large amount of stool impacted in the rectal vault. The rectum measures approximately 9 cm in diameter. There is stool throughout the colon to the cecum. There is moderate gaseous distention of the colon as well. The stomach and small bowel are not dilated. The bladder is normal. Uterus is absent. There are no pelvic masses. No free air or free fluid. No intra-abdominal adenopathy of pathologic size. The lung bases are clear. Liver appears normal. Gallbladder is normal. Bile ducts are not dilated. Pancreas and spleen are normal. The adrenal glands and kidneys are normal. Aorta is atherosclerotic without aneurysm. No blastic or lytic bony changes. 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 IMPRESSION: There is large stool burden throughout the colon with gaseous distention. There is considerable impacted stool in the rectal vault. Dictated on workstation # [id number] Dict: 02/13/20 173 Trans: 02/13/20 1738 [facility] [id number] Interpreted by: MIKE DAVIS MD Electronically signed by: Departure Communication (Admissions) 1830-despite a soapsuds enema with had minimal stool output, mostly just return of the incidental enema water. She is on a fentanyl patch and hydrocodone, I'll order an injection of Relistor and some magnesium citrate. I'm unable to reach any palpable stool on digital rectal exam. Impression Primary Impression: Constipation Qualified Codes: K59.00 - Constipation, unspecified Additional Impression: Fecal impaction in rectum Disposition: HOME, SELF-CARE Condition: Stable Departure-Patient Inst. Referrals: DON GLEZ MD (PCP/Family) Primary Care Physician PRITI ALVAREZ MANAGER IN[employer]STRU[employer]URE February 13, 2020 16:51
[2020-02-13 16:53] LABS: BASOPHILS % (AUTO) 0 % (0-10); EOSINOPHILS % (AUTO) 0 % (0-10); HEMATOCRIT 34 % (35-52); HEMOGLOBIN 11.4 G/DL (11.5-16.0); LYMPHOCYTES # (AUTO) 2.1 X 10^3 (1.0-4.0); LYMPHOCYTES % (AUTO) 29 % (12-44); MEAN CORPUSCULAR HEMOGLOBIN 29 PG (25-34); MEAN CORPUSCULAR HGB CONC 34 G/DL (32-36); MEAN CORPUSCULAR VOLUME 87 FL (80-99); MEAN PLATELET VOLUME 9.6 FL (7.4-10.4); MONOCYTES # (AUTO) 0.6 X 10^3 (0.0-1.0); MONOCYTES % (AUTO) 8 % (0-12); NEUTROPHILS # (AUTO) 4.6 X 10^3 (1.8-7.8); NEUTROPHILS % (AUTO) 63 % (42-75); PLATELET COUNT 339 10^3/uL (130-400); RED CELL DISTRIBUTION WIDTH 14.1 % (10.0-14.5); WHITE BLOOD COUNT 7.3 10^3/uL (4.3-11.0)
[2020-02-13 17:17] LABS: ALBUMIN 3.8 GM/DL (3.2-4.5); CHLORIDE 104 MMOL/L (98-107); POTASSIUM 3.6 MMOL/L (3.6-5.0); SODIUM 135 MMOL/L (135-145)
[2020-02-13 17:19] LABS: CALCIUM 9.1 MG/DL (8.5-10.1)
[2020-02-13 17:20] LABS: GLUCOSE 99 MG/DL (70-105); TOTAL PROTEIN 6.7 GM/DL (6.4-8.2)
[2020-02-13 17:21] LABS: CARBON DIOXIDE 20 MMOL/L (21-32)
[2020-02-13 17:22] LABS: BILIRUBIN,TOTAL 0.4 MG/DL (0.1-1.0)
[2020-02-13 17:23] LABS: ALKALINE PHOSPHATASE 79 U/L (40-136); CREATININE SERUM 0.61 MG/DL (0.60-1.30); GFR ESTIMATED > 60
[2020-02-13 17:24] LABS: BUN/CREATININE RATIO 20
[2020-02-13 17:26] LABS: ALANINE AMINOTRANSFERASE 6 U/L (0-55)
[2020-02-13 17:27] LABS: LIPASE 8 U/L (8-78)
--- NOTE | 2020-02-13 17:39 | Diagnostic Imaging Report ---
EXAM: CT abdomen and pelvis without intravenous contrast. All CT scans use one or more of the following dose optimizing techniques: automated exposure control, MA and/or KvP adjustment based on patient size and exam type or iterative reconstruction. INDICATION: Constipation. Left lower quadrant pain. COMPARISON: 06/25/2019. FINDINGS: There is a large amount of stool impacted in the rectal vault. The rectum measures approximately 9 cm in diameter. There is stool throughout the colon to the cecum. There is moderate gaseous distention of the colon as well. The stomach and small bowel are not dilated. The bladder is normal. Uterus is absent. There are no pelvic masses. No free air or free fluid. No intra-abdominal adenopathy of pathologic size. The lung bases are clear. Liver appears normal. Gallbladder is normal. Bile ducts are not dilated. Pancreas and spleen are normal. The adrenal glands and kidneys are normal. Aorta is atherosclerotic without aneurysm. No blastic or lytic bony changes. 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 IMPRESSION: There is large stool burden throughout the colon with gaseous distention. There is considerable impacted stool in the rectal vault. Dictated by: Dictated on workstation # [id number]
[2020-02-13] MEDS ORDERED: METHYLNALTREXONE 12 MG/0.6 ML (RELISTOR) VIAL SQ ONE (18:30)
[2020-02-13] MEDS ORDERED: MAGNESIUM CITRATE 300 ML BTL PO ONE (18:30)
[2020-02-13] MEDS ORDERED: ALPRAZolam 0.25 MG (XANAX) TAB PO ONE (19:15)
[2020-02-13 19:38] VITALS: BP 137/86
== END 2020-02-13 19:39 | disposition home or self-care (01) ==
LOC: EDUNIT# 15:20 → ER 15:21
DX: K59.00 Constipation, unspecified (principal); I10 Essential (primary) hypertension; K21.9 Gastro-esophageal reflux disease without esophagitis; F41.9 Anxiety disorder, unspecified; Z88.0 Allergy status to penicillin; Z88.2 Allergy status to sulfonamides; Z88.8 Allergy status to other drugs, medicaments and biological substances; Z88.1 Allergy status to other antibiotic agents; Z82.49 Family history of ischemic heart disease and other diseases of the circulatory system
CPT/HCPCS: 36415; 74176; 80053; 83690; 85025; 96372

== ENCOUNTER → 2020-03-04 | Outpatient (CLI) | payer MEDICARE | LOC: WOUNDCARE 13:45 | PROVIDERS: ATTEND Surgery | DX: L97.422 Non-pressure chronic ulcer of left heel and midfoot with fat layer exposed (principal); G60.8 Other hereditary and idiopathic neuropathies; R54 Age-related physical debility | CPT/HCPCS: 11042 ==

== ENCOUNTER → 2020-03-04 | Outpatient (CLI) | payer MEDICARE ==
[2020-03-04 15:29] LABS: BASOPHILS % (AUTO) 1 % (0-10); EOSINOPHILS # (AUTO) 0.1 10^3/uL (0.0-0.3); EOSINOPHILS % (AUTO) 1 % (0-10); HEMATOCRIT 35 % (35-52); HEMOGLOBIN 11.8 G/DL (11.5-16.0); LYMPHOCYTES # (AUTO) 2.9 X 10^3 (1.0-4.0); LYMPHOCYTES % (AUTO) 43 % (12-44); MEAN CORPUSCULAR HEMOGLOBIN 29 PG (25-34); MEAN CORPUSCULAR HGB CONC 34 G/DL (32-36); MEAN CORPUSCULAR VOLUME 87 FL (80-99); MEAN PLATELET VOLUME 9.9 FL (7.4-10.4); MONOCYTES # (AUTO) 0.6 X 10^3 (0.0-1.0); MONOCYTES % (AUTO) 9 % (0-12); NEUTROPHILS # (AUTO) 3.2 X 10^3 (1.8-7.8); NEUTROPHILS % (AUTO) 47 % (42-75); PLATELET COUNT 241 10^3/uL (130-400); RED CELL DISTRIBUTION WIDTH 13.5 % (10.0-14.5); WHITE BLOOD COUNT 6.8 10^3/uL (4.3-11.0)
[2020-03-04 15:51] LABS: ALANINE AMINOTRANSFERASE 9 U/L (0-55); ALBUMIN 3.8 GM/DL (3.2-4.5); ALKALINE PHOSPHATASE 68 U/L (40-136); BILIRUBIN,TOTAL 0.3 MG/DL (0.1-1.0); BUN/CREATININE RATIO 25; CARBON DIOXIDE 29 MMOL/L (21-32); CHLORIDE 104 MMOL/L (98-107); CREATININE SERUM 0.68 MG/DL (0.60-1.30); GFR ESTIMATED > 60; GLUCOSE 84 MG/DL (70-105); POTASSIUM 3.9 MMOL/L (3.6-5.0); SODIUM 138 MMOL/L (135-145); TOTAL PROTEIN 6.6 GM/DL (6.4-8.2)
== END ==
LOC: LAB 15:12
PROVIDERS: ATTEND Surgery
DX: L97.422 Non-pressure chronic ulcer of left heel and midfoot with fat layer exposed (principal); G60.8 Other hereditary and idiopathic neuropathies; R54 Age-related physical debility
CPT/HCPCS: 36415; 80053; 85025

== ENCOUNTER 2020-03-25 16:50 | Emergency (ER) | payer MEDICARE ==
[~2020-03-25] VITALS: Ht 165.5 cm; Wt 46.3 kg
[2020-03-25] MEDS ORDERED: NS IV 500 ML 500 ML IV ONE (17:06)
[2020-03-25 17:22] LABS: BILIRUBIN,URINE NEGATIVE (NEGATIVE); CLARITY,URINE CLEAR; COLOR,URINE YELLOW; GLUCOSE, URINE (UA) NEGATIVE (NEGATIVE); KETONES,URINE NEGATIVE (NEGATIVE); LEUKOCYTE ESTERASE ,URINE NEGATIVE (NEGATIVE); NITRITE,URINE NEGATIVE (NEGATIVE); PH,URINE 6.5 (5-9); PROTEIN,URINE NEGATIVE (NEGATIVE)
--- NOTE | 2020-03-25 17:25 | ED General ---
General Chief Complaint: Trauma-Non Activation Stated Complaint: CONFUSION/FALLS/HALLUCINATIONS Source of Information: Patient Exam Limitations: No Limitations (RAMOS WILBURN MD) History of Present Illness Date Seen by Provider: Mar 25, 2020 Time Seen by Provider: 16:58 Initial Comments Here with report of falls and confusion. In speaking with the patient's daughter she reports that the patient has fallen 3 times in the last week and has a brui se on her forehead. She has not had a CT scan for that. She has had increased confusion and is asking for family members have 20 years ago and does not recognize her children that are her primary caregivers recently. Patient's daughter and son are primary caregivers. Patient has not been out of the house other than to wound care 3 weeks ago and again today. The daughter works at a care home and is self isolated to prevent COVID infection. The son is disabled and is on dialysis and he also self isolates to prevent wound infection. Patient has not had fever and nobody in the family has had any symptoms. Patient denies pain or complaint and states that she did fall once but she tripped. She is unsure of events otherwise. She is answering questions and k nows her date but does appear to be intermittently confused with respect to the situation. Timing/Duration: 1 Week, Getting Worse, Intermittent Severity: Mild, Moderate Associated Systoms: No Cough, No Fever/Chills, No Headaches, No Nausea/Vomiting, No Shortness of Air, No Weakness (RAMOS WILBURN MD) Allergies and Home Medications Allergies Coded Allergies: Penicillins (Unverified Allergy, Unknown, 06/25/19) Sulfa (Sulfonamide Antibiotics) (Verified Allergy, Unknown, 06/25/19) gabapentin (Verified Allergy, Unknown, 06/25/19) hydrochlorothiazide (Verified Allergy, Unknown, 06/25/19) lisinopril (Verified Allergy, Unknown, 06/25/19) losartan (Verified Allergy, Unknown, 06/25/19) pregabalin (Verified Allergy, Unknown, 06/25/19) sulfamethoxazole (Verified Allergy, Unknown, 06/25/19) trimethoprim (Verified Allergy, Unknown, 06/25/19) Home Medications Betamethasone/Propylene Glyc 15 Gm Cream..g., TP BID, (Reported) APPLY TO AFFECTED AREAS ON HANDS ARMS AND FEET Bimatoprost 2.5 Ml Drops, 1 DROP OU HS, (Reported) Bisacodyl 5 Mg Tablet.dr, 5 MG PO HS, (Reported) Brimonidine Tartrate/Timolol 5 Ml Drops, 1 DROP OU BID, (Reported) Clorazepate Dipotassium 7.5 Mg Tablet, 7.5 MG PO DAILY PRN for ANXIETY, (Reported) Diclofenac Sodium 100 Gm Gel..gram., TP QID PRN for JOINT PAIN, (Reported) Docusate Sodium 250 Mg Capsule, 250 MG PO DAILY, (Reported) Ergocalciferol (Vitamin D2) 50,000 Unit Capsule, 50,000 UNIT PO Fr, (Reported) Felodipine 10 Mg Tab.er.24h, 10 MG PO DAILY, (Reported) Fentanyl 1 Each Patch.td72, 75 MCG PO Q72H@1800, (Reported) Hydrochlorothiazide 25 Mg Tablet, 25 MG PO DAILY, (Reported) Hydrocodone Bit/Acetaminophen 1 Each Tablet, 1 TAB PO Q4H PRN for NAUSEA/VOMITING-1ST LINE, (Reported) Levothyroxine Sodium 100 Mcg Tablet, 100 MCG PO DAILY, (Reported) Loratadine 10 Mg Tablet, 10 MG PO DAILY PRN for ALLERGIES, (Reported) Ondansetron 4 Mg Tab.rapdis, 4 MG PO Q6H PRN for NAUSEA/VOMITING-1ST LINE, (Reported) Polyethylene Glycol 3350 17 Gm Powd.pack, 17 GM PO DAILY PRN for CONSTIPATION- 2ND LINE, (Reported) Potassium Chloride 10 Meq Tab.er.prt, 10 MEQ PO BID, (Reported) Pravastatin Sodium 40 Mg Tablet, 40 MG PO HS, (Reported) Propylene Glycol/Peg 400 10 Ml Drops.gel, 1 DROP OU DAILY PRN for DRY EYES, (Reported) Ranitidine HCl 150 Mg Tablet, 150 MG PO BID, (Reported) Sennosides 8.6 Mg Tablet, 2 TAB PO DAILY, (Reported) Sennosides/Docusate Sodium 1 Each Tablet, 2 TAB PO HS, (Reported) Patient Home Medication List Home Medication List Reviewed: Yes (RAMOS WILBURN MD) Review of Systems Review of Systems Constitutional: see HPI; No chills, No fever EENTM: no symptoms reported Respiratory: no symptoms reported Cardiovascular: no symptoms reported Gastrointestinal: No abdominal pain, No diarrhea, No nausea, No vomiting Genitourinary: No dysuria, No pain Musculoskeletal: No back pain, No joint pain Skin: change in color, lesions Psychiatric/Neurological: Denies Headache; Other (confusion) (RAMOS WILBURN MD) All Other Systems Reviewed Negative Unless Noted: Yes (RAMOS WILBURN MD) Past Gnaxaxw-Uylasv-Nazxhh Hx Past Med/Social Hx: Reviewed Nursing Past Med/Soc Hx (RAMOS WILBURN MD) Patient Social History Alcohol Use: Denies Use Recreational Drug Use: No Smoking Status: Former Smoker Type Used: Cigarettes 2nd Hand Smoke Exposure: Yes Recent Foreign Travel: No Contact w/Someone Who Travel: No Recent Hopitalizations: Yes (ENCEPHALITIS 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 Sexually Transmitted Disease: No Gastrointestinal: No Gastroesophageal Reflux Musculoskeletal: Yes Endocrine: Yes Hearing Impairment: Hard of Hearing Skin What Type of Treatment Did You: Surgical Intervention Psychosocial: No Anxiety Blood Disorders: No (RAMOS WILBURN MD) Family Medical History Reviewed Nursing Family Hx (RAMOS WILBURN MD) CAD Over 55 Years Old, Diabetes, Hypertension, Stroke (RAMOS WILBURN MD) Physical Exam Vital Signs Vital Signs - First Documented 03/25/20 16:55 Temp 36.5 Pulse 78 Resp 18 B/P (MAP) 191/88 (122) Pulse Ox 99 O2 Delivery Room Air (JOANNA PARRA MD) Vital Signs Capillary Refill : (RAMOS WILBURN MD) Height, Weight, BMI Height: 5'3.00" Weight: 153lbs. oz. 69.936553aj; 22.00 BMI Method: General Appearance: No Apparent Distress, WD/WN HEENT: PERRL/EOMI, Pharynx Normal Neck: Non Tender, Supple Respiratory: Lungs Clear, Normal Breath Sounds Cardiovascular: Regular Rate, Rhythm, No Murmur Gastrointestinal: Non Tender, Soft Back: Normal Inspection, No CVA Tenderness, No Vertebral Tenderness Extremity: Normal Range of Motion, Non Tender, Pelvis Stable Neurologic/Psychiatric: Alert, No Motor/Sensory Deficits, Other (intermittent confusion related to situation but knows self and is confused to time) Skin: Warm/Dry, Ecchymosis (and right for head 3 x 3 cm ecchymosis) (RAMOS WILBURN MD) Progress/Results/Core Measures Suspected Sepsis SIRS Temperature: Pulse: Respiratory Rate: Blood Pressure / Mean: (RAMOS WILBURN MD) Results/Orders Lab Results Laboratory Tests Test 03/25/20 17:15 03/25/20 17:27 Range/Units Urine Color YELLOW Urine Clarity CLEAR Urine pH 6.5 5-9 Urine Specific [place] 1.010 L 1.016-1.022 Urine Protein NEGATIVE NEGATIVE Urine Glucose (UA) NEGATIVE NEGATIVE Urine Ketones NEGATIVE NEGATIVE Urine Nitrite NEGATIVE NEGATIVE Urine Bilirubin NEGATIVE NEGATIVE Urine Urobilinogen 0.2 < = 1.0 MG/DL Urine Leukocyte Esterase NEGATIVE NEGATIVE Urine RBC (Auto) NEGATIVE NEGATIVE Urine RBC NONE /HPF Urine WBC NONE /HPF Urine Squamous Epithelial Cells RARE /HPF Urine Crystals NONE /LPF Urine Bacteria NEGATIVE /HPF Urine Casts NONE /LPF Urine Mucus NEGATIVE /LPF Urine Culture Indicated NO White Blood Count 8.3 4.3-11.0 10^3/uL Red Blood Count 4.26 L 4.35-5.85 10^6/uL Hemoglobin 12.3 11.5-16.0 G/DL Hematocrit 36 35-52 % Mean Corpuscular Volume 85 80-99 FL Mean Corpuscular Hemoglobin 29 25-34 PG Mean Corpuscular Hemoglobin Concent 34 32-36 G/DL Red Cell Distribution Width 13.7 10.0-14.5 % Platelet Count 348 130-400 10^3/uL Mean Platelet Volume 9.5 7.4-10.4 FL Neutrophils (%) (Auto) 56 42-75 % Lymphocytes (%) (Auto) 35 12-44 % Monocytes (%) (Auto) 7 0-12 % Eosinophils (%) (Auto) 1 0-10 % Basophils (%) (Auto) 1 0-10 % Neutrophils # (Auto) 4.7 1.8-7.8 X 10^3 Lymphocytes # (Auto) 2.9 1.0-4.0 X 10^3 Monocytes # (Auto) 0.6 0.0-1.0 X 10^3 Eosinophils # (Auto) 0.1 0.0-0.3 10^3/uL Basophils # (Auto) 0.1 0.0-0.1 10^3/uL Sodium Level 140 135-145 MMOL/L Potassium Level 4.1 3.6-5.0 MMOL/L Chloride Level 104 98-107 MMOL/L Carbon Dioxide Level 24 21-32 MMOL/L Anion Gap 12 5-14 MMOL/L Blood Urea Nitrogen 10 7-18 MG/DL Creatinine 0.77 0.60-1.30 MG/DL Estimat Glomerular Filtration Rate > 60 BUN/Creatinine Ratio 13 Glucose Level 103 70-105 MG/DL Calcium Level 9.7 8.5-10.1 MG/DL Corrected Calcium 9.8 8.5-10.1 MG/DL Total Bilirubin 0.3 0.1-1.0 MG/DL Aspartate Amino Transf (AST/SGOT) 13 5-34 U/L Alanine Aminotransferase (ALT/SGPT) 6 0-55 U/L Alkaline Phosphatase 93 40-136 U/L C-Reactive Protein High Sensitivity 1.34 H 0.00-0.50 MG/DL Total Protein 7.0 6.4-8.2 GM/DL Albumin 3.9 3.2-4.5 GM/DL (JOANNA PARRA MD) Medications Given in ED Current Medications Medications Dose Ordered Sig/Bob Route Start Time Stop Time Status Last Admin Dose Admin Sodium Chloride 500 ml @ 0 mls/hr Q0M ONCE IV 03/25/20 17:06 03/25/20 17:09 DC 03/25/20 17:30 500 MLS/HR (JOANNA PARRA MD) Vital Signs/I&O 03/25/20 03/25/20 16:55 18:37 Temp 36.5 Pulse 78 74 Resp 18 18 B/P (MAP) 191/88 (122) 164/81 (108) Pulse Ox 99 98 O2 Delivery Room Air Room Air (JOANNA PARRA MD) Vital Signs/I&O Capillary Refill : (RAMOS WILBURN MD) Progress Note : Progress Note Seen and evaluated. CT head ordered. Basic labs and UA ordered. Normal saline 500 mL bolus. Monitor patient. (RAMOS WILBURN MD) Progress Note : Time: 18:58 Progress Note Patient remains somnolent. She is arousable however. CT results reviewed and discussed with daughter. She will need transfer to higher level of care (neurosurgery). CT scan of the cervical spine was not done here. I placed her in a c-collar. I spoke with Dr. Nur ([facility]) he accepted the transfer will transport patient via helicopter. This was being arranged at the time of this dictation. (JOANNA PARRA MD) Departure Impression Primary Impression: Intracranial hemorrhage Disposition: XFER SHT-TRM HOSP Condition: Critical Transfer Transfer Reason: Exceeds level of care Time Spoke to Accepting Phy: 19:00 Transfer Progress Notes I spoke with Dr. Nur at [facility] who accepted the transfer. Transfer Time: 19:00 Transfer Facility: [facility] Method of Transfer: Air (JOANNA PARRA MD) Departure-Patient Inst. Referrals: DON GLEZ MD (PCP/Family) Primary Care Physician RAMOS WILBURN MD Mar 25, 2020 17:25 JOANNA PARRA MD Mar 25, 2020 19:01
[2020-03-25 17:33] LABS: BACTERIA,URINE NEGATIVE /HPF; SQUAMOUS EPITHELIAL CELL,UR RARE /HPF
[2020-03-25 17:36] LABS: BASOPHILS # (AUTO) 0.1 10^3/uL (0.0-0.1); BASOPHILS % (AUTO) 1 % (0-10); EOSINOPHILS # (AUTO) 0.1 10^3/uL (0.0-0.3); EOSINOPHILS % (AUTO) 1 % (0-10); HEMATOCRIT 36 % (35-52); HEMOGLOBIN 12.3 G/DL (11.5-16.0); LYMPHOCYTES # (AUTO) 2.9 X 10^3 (1.0-4.0); LYMPHOCYTES % (AUTO) 35 % (12-44); MEAN CORPUSCULAR HEMOGLOBIN 29 PG (25-34); MEAN CORPUSCULAR HGB CONC 34 G/DL (32-36); MEAN CORPUSCULAR VOLUME 85 FL (80-99); MEAN PLATELET VOLUME 9.5 FL (7.4-10.4); MONOCYTES # (AUTO) 0.6 X 10^3 (0.0-1.0); MONOCYTES % (AUTO) 7 % (0-12); NEUTROPHILS # (AUTO) 4.7 X 10^3 (1.8-7.8); NEUTROPHILS % (AUTO) 56 % (42-75); PLATELET COUNT 348 10^3/uL (130-400); RED CELL DISTRIBUTION WIDTH 13.7 % (10.0-14.5); WHITE BLOOD COUNT 8.3 10^3/uL (4.3-11.0)
[2020-03-25 17:46] LABS: ALBUMIN 3.9 GM/DL (3.2-4.5); CHLORIDE 104 MMOL/L (98-107); POTASSIUM 4.1 MMOL/L (3.6-5.0); SODIUM 140 MMOL/L (135-145)
[2020-03-25 17:47] LABS: CALCIUM 9.7 MG/DL (8.5-10.1)
[2020-03-25 17:48] LABS: GLUCOSE 103 MG/DL (70-105)
[2020-03-25 17:50] LABS: BILIRUBIN,TOTAL 0.3 MG/DL (0.1-1.0); CARBON DIOXIDE 24 MMOL/L (21-32)
[2020-03-25 17:52] LABS: ALKALINE PHOSPHATASE 93 U/L (40-136); CREATININE SERUM 0.77 MG/DL (0.60-1.30); GFR ESTIMATED > 60
[2020-03-25 17:53] LABS: BUN/CREATININE RATIO 13
[2020-03-25 17:55] LABS: ALANINE AMINOTRANSFERASE 6 U/L (0-55)
--- NOTE | 2020-03-25 18:21 | NUR ---
DR PARRA CALLED AND TALKED WITH DAUGHTER INFORMD THAT PATIENT HAS A SUDURAL HEMATOMA TALKED WITH HER ABOUT TRANSFER.
--- NOTE | 2020-03-25 18:22 | Diagnostic Imaging Report ---
PROCEDURE: CT head without contrast. TECHNIQUE: Multiple contiguous axial images were obtained through the brain without the use of intravenous contrast. Auto Exposure Controls were utilized during the CT exam to meet ALARA standards for radiation dose reduction. INDICATION: Confusion, multiple falls. COMPARISON: None available. FINDINGS: 5 mm hyperdensity is identified along the left aspect of the interhemispheric falx which appears to have a slightly different density than additional calcifications along the interhemispheric falx. This is best seen on series 2, image 19. Significant hypodensities are identified within the bilateral frontal lobes, left greater than right. This is resulting in slight effacement of the bilateral frontal lobes. Additionally, focal sulcal effacement involving the bilateral frontal lobes is present. 6 mm of [id number] midline shift is present anteriorly. No evidence of hydrocephalus. The cortices overlying the bilateral frontal lobes appear mildly thickened. No hydrocephalus. No large geographic acute ischemic infarction. The left ocular lens is absent. The paranasal sinuses are clear. The calvarium and extracalvarial soft tissues are unremarkable. IMPRESSION: 1. Small hyperdensity noted along the left aspect of the interhemispheric falx, as described above. This is felt to relate to a small region of extra-axial hemorrhage versus calcifications of the interhemispheric falx. 2. Prominent hypodensities associated with the bilateral frontal lobes, left greater than right. This appears to spare the cortex with overlying cortex appearing slightly thickened. Contusion and edema would be a consideration. However, underlying mass lesion with associated vasogenic edema would be additional consideration. Recommend an MRI of the brain with and without contrast for further evaluation. 3. Mild left to right midline shift, anteriorly, without resulting hydrocephalus. Findings discussed with Kobe Chamberlain at 1812 hours on 03/25/2020. Dictated by: Dictated on workstation # [id number]
--- NOTE | 2020-03-25 18:28 | NUR ---
SHIFT CAPTAIN NOTIFIED OF TRANSFER TO [facility] OR [facility].
--- NOTE | 2020-03-25 18:34 | NUR ---
AMY BERMEO AND AND MELANIE FULL AND UNABLE TO TAKE PATIENT . CALLED DAUGHTER AND INFORMED HER THAT [facility] WOULD BE OK
[2020-03-25 18:37] VITALS: BP 164/81
--- NOTE | 2020-03-25 18:39 | NUR ---
REPORT FROM PHYLLIS AT THIS TIME, PATIENT ALERT AND ORIENTED X4, CALL LIGHT IN REACH, INTRODUCED SELF TO PATIENT. MONITORING MAINTIANED.
--- NOTE | 2020-03-25 18:39 | NUR ---
REPORT TO MJ AND WILL ASSUME CARE.
--- NOTE | 2020-03-25 18:59 | NUR ---
RALPH CALLED FOR AIR TRANSFER TO [facility] PER ACCEPTING DR HARVEY, ALSO PATIENT PLACED IN CERVICAL COLLAR AT THIS TIME.
--- NOTE | 2020-03-25 19:03 | NUR ---
DAUGHTER LILIYA CALLED AND INFORMED OF PLAN OF CARE AND TRANSFER TO [facility]
--- NOTE | 2020-03-25 19:05 | NUR ---
FACE SHEET FAXED TO [phone]
--- NOTE | 2020-03-25 19:10 | NUR ---
REPORT CALLED TO MITA [facility]
--- NOTE | 2020-03-25 19:17 | NUR ---
CT ASKED TO CLOUD IMAGES TO MELANIE REYES
[2020-03-25 19:20] VITALS: BP 161/82
--- NOTE | 2020-03-25 19:20 | NUR ---
[facility]AL[facility] ARRIVES TO TRANSFER PATIENT, REPORT GIVEN TO KOREY GARCIA RN.
--- NOTE | 2020-03-25 19:27 | NUR ---
LILIYA PATIENTS DAUGHTER UPDATED OF PATIENT TRANSFER STATUS, PHONE NUMBER GIVEN FOR MELANIE REYES TO ENABLE DAUGHTER TO CALL FOR UPDATES.
--- NOTE | 2020-03-25 19:38 | NUR ---
PATIENT DEPARTS ER
--- NOTE | 2020-03-25 19:45 | NUR ---
DAUGHTER LILIYA CONTACTED AND REMINDED WE HAVE HER MOTHERS WHEELCHAIR HERE. VERBALIZES SHE WILL COME AND PICK IT UP THIS EVENING.
--- OUTSIDE RECORDS SUMMARY | 2020-03-25 20:39 | XMS REPORT ---
Author Author Cami GLEZ Organization [facility] Address [address] [place] [address] Care Team Providers Care Scrum Coach Name Role Phone DON GLEZ Unavailable PROBLEMS Type Condition ICD9-CM Code AOV79-EP Code Onset Dates Condition S tatus SNOMED Code Problem Generalized anxiety disorder F41.1 A ctive 42127523 Problem Depressive disorder, not elsewhere classified F32. 9 Active 03399973 Problem COPD (chronic obstructive pulmonary disease) J44.9 Active 75697296 Problem Arthritis M19.90 Active 2609517 Problem Skin ulcer of left foot with fat layer exposed L97 .522 Active 69535143 Problem Hypertension I10 Active 2315215 3 Problem Slow transit constipation K59.01 Acti ve 65894898 Problem Back pain M54.9 Active 781739267 Problem Vitamin D deficiency E55.9 Active 76600651 Problem Lumbar radiculopathy M54.16 Active 194874602 Problem Venous insufficiency I87.2 Active 88312836 Problem Basal cell carcinoma (BCC) of skin of right ear C4 4.212 Active [id number] ALLERGIES No Information ENCOUNTERS Encounter Location Date Diagnosis [place] [address] [facility] [id number] [address] [place] [phone] 24 Feb, 2020 [facility] [address] [facility] [id number] [address] [place] [id number] 19 Feb, 2020 Lumbar radiculopathy M54.16 ; Arthritis M19.90 and Slow transit constipation K59.01 [facility] [address] [facility] [id number] [address] [place] [phone] 16 Feb, 2020 [facility] [address] [facility] [id number] [address] [place] [phone] 09 Feb, 2020 Back pain M54.9 [place] [address] [facility] [id number] [address] [place] [phone] 08 Feb, 2020 Radiculopathy, lumbar region M54.16 and Lumbar radiculopathy M54.[address] [id number] [address] 04 Feb, 2020 Radiculopathy, lumbar region M54.16 and Lumbar radiculopathy M54.16 [facility] [address] [id number] [address] [place] [phone] January, Slow transit constipation K5 9.01 [facility] [address] [id number] [address] [place] [phone] January, [facility] [address] [id number] [address] [place] [phone] January, Lumbar radiculopathy M54.16 [facility] [address] [id number] [address] [place] [phone] January, Radiculopathy, lumbar region M54.16 and Lumbar radiculopathy M54.16 [facility] [address] [id number] [address] [place] [phone] 24 Dec, [address] 340[place] [address] 24 Dec, 2019 [facility] [address] [id number] [address] [place] [phone] 14 Dec, 2019 Radiculopathy, lumbar region M54.[address] 340[address] [place] [address] 14 Dec, 2019 Radiculopathy, lumbar region M54.16 [facility] [address] [id number] [address] [place] [phone] 09 Dec, 2019 Lumbar radiculopathy M54.16 [facility] [address] [id number] [address] [place] [phone] 02 Dec, 2019 [facility] [address] [id number] [address] [place] [phone] 20 Nov, 2019 [facility] [address] [id number] [address] [place] [phone] 18 Nov, 2019 [facility] [address] [id number] [address] [place] [phone] 17 Nov, 2019 Weight loss R63.4 ; Skin ulc er of left foot with fat layer exposed L97.522 ; Basal cell carcinoma (BCC) of skin of right ear C44.212 ; Hypertension I10 and Lumbar radiculopathy M54.16 [facility] [address] [id number] [address] [place] [phone] 11 Nov, 2019 Back pain M54.9 and Radiculo peg, lumbar region M54.16 [facility] [address] [id number] [address] [place] [phone] 20 Oct, 2019 Radiculopathy, lumbar region M54.16 [facility] [address] [id number] [address] [place] [phone] 19 Oct, 2019 [facility] [address] [id number] [address] [place] [phone] 11 Oct, 2019 Back pain M54.9 [facility] [address] [id number] [address] [place] [phone] 10 Oct, 2019 [facility] [address] [id number] [address] [place] [phone] 06 Oct, 2019 Skin sore L98.9 [facility] [address] [id number] [address] [place] [phone] 24 Sep, 2019 Radiculopathy, lumbar region M54.16 [facility] [address] [id number] [address] [place] [phone] 15 Sep, 2019 Back pain M54.9 [facility] [address] [id number] [address] [place] [phone] 14 Sep, 2019 Generalized anxiety disorder F41.1 [facility] [address] [id number] [address] [place] [phone] Aug, Radiculopathy, lumbar region M54.16 [facility] [address] [id number] [address] [place] [phone] Aug, Back pain M54.9 [facility] [address] [id number] [address] [place] [phone] Aug, Lumbar radiculopathy M54.16 ; Generalized anxiety disorder F41.1 and Drug-induced constipation K59.03 [facility] [address] [id number] [address] [place] [phone] Jul, Radiculopathy, lumbar region M54.16 [facility] [address] [id number] [address] [place] [phone] Jul, [facility] [address] [id number] [address] [place] [phone] Jul, [facility] [address] [id number] [address] [place] [phone] Jul, Back pain M54.9 [facility] [address] [id number] [address] [place] [phone] Jul, Radiculopathy, lumbar region M54.16 [facility] [address] [id number] [address] [place] [phone] Jul, Radiculopathy, lumbar region M54.16 [facility] [address] [id number] [address] [place] [phone] Jun, Back pain M54.9 [facility] [address] [id number] [address] [place] [phone] Jun, [facility] [address] [id number] [address] [place] [id number] Jun, Radiculopathy, lumbar region M54.16 [facility] [address] [facility] [id number] [address] [place] [phone] 08 Jun, 2019 [facility] [address] [id number] [address] [place] [phone] 30 May, 2019 Back pain M54.9 [facility] [address] [facility] [id number] [address] [place] [phone] May, Cellulitis of other specifie d site L03.818 ; Dermatitis L30.9 and Lumbar radiculopathy M54.16 [facility] [address] [id number] [address] [place] [phone] May, [facility] [address] [facility] [id number] [address] [place] [phone] May, Back pain M54.9 [facility] [address] [facility] [id number] [address] [place] [phone] 05 May, 2019 [facility] [address] [facility] [id number] [address] [place] [phone] 04 May, 2019 Back pain M54.9 [facility] [address] [facility] [id number] [address] [place] [phone] 14 Apr, 2019 [facility] [address] [facility] [id number] [address] [place] [phone] Apr, Back pain M54.9 [facility] [address] [facility] [id number] [address] [place] [phone] Apr, Hyponatremia E87.1 [facility] [address] [facility] [id number] [address] [place] [phone] Apr, Hyponatremia E87.1 [facility] [address] [facility] [id number] [address] [place] [phone] Mar, Arthritis M19.90 ; Impacted cerumen of right ear H61.21 and Hypertension I10 [facility] [address] [id number] [id number] Mar, [facility] [address] [id number] [address] [place] [phone] Mar, Back pain M54.9 [facility] [address] [id number] [address] [place] [phone] Feb, Back pain M54.9 [facility] [address] [id number] [address] [place] [phone] Feb, [facility] [address] [id number] [address] [place] [phone] Feb, Dermatitis L30.9 [facility] [address] [id number] [address] [place] [id number] January, Dermatitis L30.9 [facility] [address] [id number] [address] [place] [phone] January, [facility] [address] [id number] [address] [place] [phone] January, Back pain M54.9 [facility] [address] [id number] [address] [place] [phone] Dec, [facility] [address] [id number] [address] [place] [phone] Dec, Back pain M54.9 [facility] [address] [id number] [address] [place] [id number] Dec, Lumbar radiculopathy M54.16 ; Arthritis M19.90 and Dyshydrosis L30.1 [facility] [address] [id number] [address] [place] [phone] Nov, Back pain M54.9 [facility] [address] [id number] [address] [place] [phone] Nov, [facility] [address] [id number] [address] [place] [phone] Oct, [facility] [address] [id number] [address] [place] [phone] Oct, Back pain M54.9 [facility] [address] [id number] [address] [place] [phone] Oct, [facility] [address] [id number] [address] [place] [phone] Oct, [facility] [address] [id number] [address] [place] [phone] Sep, Back pain M54.9 [facility] [address] [id number] [address] [place] [phone] Sep, [facility] [address] [facility] [id number] [address] [place] [phone] Aug, Back pain M54.9 [facility] [address] [facility] [id number] [address] [place] [phone] Aug, Encounter for immunization Z 23 ; Arthritis M19.90 and Generalized anxiety disorder F41.1 [facility] [address] [id number] [address] [place] [phone] Aug, [facility] [address] [facility] [id number] [address] [place] [phone] Aug, [facility] [address] [facility] [id number] [address] [place] [phone] Jul, Back pain M54.9 [facility] [address] [id number] [address] [place] [phone] Jul, [facility] [address] [id number] [address] [place] [phone] Jul, [facility] [address] [facility] [id number] [address] [place] [phone] Jun, Back pain M54.9 [facility] [address] [id number] [address] [place] [phone] Jun, [facility] [address] [facility] [id number] [address] [place] [phone] Jun, Back pain M54.9 [facility] [address] [id number] [address] [place] [phone] 11 May, 2018 Lumbar radiculopathy M54.16 ; Hypertension I10 and Generalized anxiety disorder F41.1 [facility] [address] [id number] [address] [place] [phone] 06 May, 2018 Back pain M54.9 [facility] [address] [id number] [address] [place] [phone] Apr, [facility] [address] [id number] [address] [place] [phone] Apr, [facility] [address] [id number] [address] [place] [phone] Apr, Back pain M54.9 [facility] [address] [id number] [address] [place] [phone] Mar, Back pain M54.9 [facility] [address] [id number] [address] [place] [phone] Feb, [facility] [address] [id number] [address] [place] [phone] Feb, [facility] [address] [id number] [address] [place] [phone] 15 Feb, 2018 [facility] [address] [id number] [address] [place] [phone] Feb, Back pain M54.9 [facility] [address] [id number] [address] [place] [phone] Feb, Back pain M54.9 ; Hypertensi on I10 ; Generalized anxiety disorder F41.1 and Venous insufficiency I87.2 [facility] [address] [id number] [address] [place] [phone] January, [facility] [address] [id number] [address] [place] [address] January, Back pain M54.9 [facility] [address] [id number] [address] [place] [phone] Dec, [facility] [address] [id number] [address] [place] [phone] Dec, Back pain M54.9 [facility] [address] [id number] [address] [place] [phone] Nov, Back pain M54.9 [facility] [address] [id number] [address] [place] [phone] Nov, [facility] [address] [id number] [address] [place] [phone] Nov, Lumbar radiculopathy M54.16 ; Hypertension I10 ; Arthritis M19.90 and Back pain M54.9 [facility] [address] [id number] [address] [place] [phone] Oct, Back pain M54.9 [facility] [address] [id number] [address] [place] [phone] Oct, [facility] [address] [id number] [address] [place] [phone] Sep, Back pain M54.9 [facility] [address] [id number] [address] [place] [phone] Sep, [facility] [address] [id number] [address] [place] [phone] Aug, Back pain M54.9 [facility] [address] [id number] [address] [place] [id number] Jul, Back pain M54.9 [facility] [address] [facility] [id number] [address] [place] [phone] 09 Jul, 2017 Encounter for immunization Z 23 ; Back pain M54.9 ; Hypertension I10 and Lumbar radiculopathy M54.16 [facility] [address] [id number] [address] [place] [phone] Jul, Back pain M54.9 [facility] [address] [id number] [address] [place] [phone] Jun, Vitamin D deficiency E55.9 [facility] [address] [id number] [address] [place] [phone] 04 Jun, 2017 Back pain M54.9 [facility] [address] [id number] [address] [place] [phone] May, [facility] [address] [id number] [address] [place] [phone] May, [facility] [address] [id number] [address] [place] [phone] May, [facility] [address] [facility] [id number] [address] [place] [phone] May, Back pain M54.9 [facility] [address] [facility] [id number] [address] [place] [phone] Apr, Back pain M54.9 ; Hypertensi on I10 ; Arthritis M19.90 and Generalized anxiety disorder F41.1 [facility] [address] [facility] [id number] [address] [place] [phone] Apr, Back pain M54.9 [facility] [address] [facility] [id number] [address] [place] [phone] Mar, Back pain M54.9 [facility] [address] [facility] [id number] [address] [place] [phone] 10 Mar, 2017 Vitamin D deficiency E55.9 [facility] [address] [facility] [id number] [address] [place] [phone] 15 Feb, 2017 Vitamin D deficiency E55.9 [facility] [address] [facility] [id number] [address] [place] [phone] 14 Feb, 2017 Vitamin D deficiency E55.9 [facility] [address] [id number] [address] [place] [phone] Feb, Back pain M54.9 [facility] [address] [id number] [address] [place] [phone] January, Back pain M54.9 [facility] [address] [facility] [id number] [address] [place] [phone] January, Arthritis M19.90 [facility] [address] [facility] [id number] [address] [place] [phone] January, Vitamin D deficiency E55.9 a nd Arthritis M19.90 [facility] [address] [facility] [id number] [address] [place] [phone] Dec, Medicare annual wellness vis it, initial Z00.00 and Encounter for immunization Z23 [facility] [address] [facility] [id number] [address] [place] [phone] Dec, Back pain M54.9 [facility] [address] [facility] [id number] [address] [place] [phone] Nov, Back pain M54.9 [facility] [address] [facility] [id number] [address] [place] [id number] 24 Oct, 2016 Back pain M54.9 [facility] [address] [facility] [id number] [address] [place] [id number] 14 Oct, 2016 COPD (chronic obstructive pu lmonary disease) J44.9 [facility] [address] [facility] [id number] [address] [place] [phone] 14 Oct, 2016 [facility] [address] [facility] [id number] [address] [place] [phone] 02 Oct, 2016 Hypertension I10 ; Back pain M54.9 and Encounter for immunization Z23 [facility] [address] [id number] [address] [place] [id number] Sep, [facility] [address] [facility] [id number] [address] [place] [phone] Sep, Back pain M54.9 [facility] [address] [id number] [address] [place] [id number] Sep, Back pain M54.9 [facility] [address] [id number] [address] [place] [phone] Aug, [facility] [address] [id number] [address] [place] [phone] Aug, Back pain M54.9 [facility] [address] [id number] [address] [place] [phone] Aug, [facility] [address] [id number] [address] [place] [phone] Aug, [facility] [address] [id number] [address] [place] [phone] Aug, Back pain M54.9 [facility] [address] [id number] [address] [place] [id number] Jul, [facility] [address] [id number] [address] [place] [id number] Jul, Back pain M54.9 [facility] [address] [id number] [address] [place] [id number] Jun, Back pain M54.9 ; Hypertensi on I10 ; Generalized anxiety disorder F41.1 and Encounter for immunization Z23 [facility] [address] [id number] [address] [place] [phone] Jun, [facility] [address] [id number] [address] [place] [phone] May, [facility] [address] [id number] [address] [place] [phone] Apr, [facility] [address] [id number] [address] [place] [phone] Apr, [facility] [address] [id number] [address] [place] [phone] Mar, [facility] [address] [id number] [address] [place] [id number] Mar, [facility] [address] [id number] [address] [place] [phone] 15 Mar, 2016 [facility] [address] [address] [id number] [address] [place] [id number] Feb, Back pain M54.9 and Hyperten madelyn I10 [facility] [address] [id number] [address] [place] [id number] 17 Feb, 2016 Back pain M54.9 [facility] [address] [id number] [address] [place] [id number] Dec, COPD (chronic obstructive pu lmonary disease) J44.9 [facility] [address] [id number] [address] [place] [id number] Dec, [facility] [address] [id number] [address] [place] [address] Dec, Back pain M54.9 [facility] [address] [id number] [address] [place] [id number] 24 Nov, 2015 Back pain M54.9 [facility] [address] [id number] [address] [place] [id number] Nov, COPD (chronic obstructive pu lmonary disease) J44.9 [facility] [address] [id number] [address] [place] [id number] 04 Nov, 2015 Hypertension I10 and Back pa in M54.9 [facility] [address] [id number] [address] [place] [phone] Oct, Hypertension I10 and Back pa in M54.9 [facility] [address] [id number] [address] [place] [id number] Oct, Back pain M54.9 [facility] [address] [id number] [address] [place] [id number] Sep, Back pain M54.9 [facility] [address] [id number] [address] [place] [phone] Sep, [facility] [address] [id number] [address] [place] [phone] Sep, [facility] [address] [id number] [address] [place] [phone] Sep, [facility] [address] [id number] [address] [place] [phone] Sep, [facility] [address] [id number] [address] [place] [id number] Aug, [facility] [address] [id number] [address] [place] [id number] Aug, [facility] [address] [id number] [address] [place] [phone] Aug, [facility] [address] [id number] [address] [place] [id number] Aug, [facility] [address] [id number] [address] [place] [id number] Aug, [facility] [address] [id number] [address] [place] [phone] Jul, [facility] [address] [id number] [address] [place] [address] Jul, Back pain M54.9 ; Arthritis M19.90 ; Hypertension I10 and Encounter for immunization Z23 [facility] [address] [id number] [address] [place] [phone] Jul, Generalized anxiety disorder F41.1 and Depressive disorder, not elsewhere classified F32.9 [facility] [address] [id number] [address] [place] [id number] Jul, [facility] [address] [id number] [address] [place] [phone] Jul, [facility] [address] [id number] [address] [place] [phone] Jul, [facility] [address] [id number] [address] [place] [id number] Jun, [facility] [address] [id number] [address] [place] [id number] Jun, [facility] [address] [id number] [address] [place] [id number] May, [facility] [address] [id number] [address] [place] [id number] May, [facility] [address] [id number] [address] [place] [address] May, [facility] [address] [id number] [address] [place] [id number] May, [facility] [address] [id number] [address] [place] [id number] May, Benign essential hypertensio n 401.1 ; Anxiety state, unspecified 300.00 ; Back pain 724.5 and Arthritis 716.90 [facility] [address] [id number] [address] [place] [phone] May, [facility] [address] [id number] [address] [place] [address] Apr, [facility] [address] [id number] [address] [place] [id number] Apr, [facility] [address] [id number] [address] [place] [phone] Apr, [facility] [address] [id number] [address] [place] [id number] Mar, [facility] [address] [id number] [address] [place] [phone] Mar, [facility] [address] [id number] [address] [place] [phone] Mar, [facility] [address] [id number] [address] [place] [address] Feb, High risk medication use V58 .69 [facility] [address] [id number] [address] [place] [phone] 15 Feb, 2015 Benign essential hypertensio n 401.1 ; Anxiety state, unspecified 300.00 and Chronic pain 338.29 [facility] [address] [id number] [address] [place] [phone] Feb, [facility] [address] [id number] [address] [place] [id number] January, [facility] [address] [id number] [address] [place] [phone] January, [facility] [address] [id number] [address] [place] [phone] January, [facility] [address] [id number] [address] [place] [phone] January, [facility] [address] [id number] [address] [place] [phone] Dec, [facility] [address] [id number] [address] [place] [id number] Dec, [facility] [address] [id number] [address] [place] [phone] Nov, [facility] [address] [id number] [address] [place] [phone] Nov, [facility] [address] [id number] [address] [place] [phone] Nov, [facility] [address] [id number] [address] [place] [phone] Nov, [facility] [address] [id number] [address] [place] [phone] Oct, [facility] [address] [id number] [address] [place] [address], [place] [address] Oct, 2014 [facility] [address] [id number] [address] [place] [address], [place] [address] Oct, [facility] [address] [id number] [address] [place] [address], [place] [address] Oct, [facility] [address] [id number] [address] [place] [address], [place] [address] Oct, [facility] [address] [id number] [address] [place] [address], [place] [address] Sep, [facility] [address] [id number] [address] [place] [address], [place] [address] Sep, [facility] [address] [id number] [address] [place] [address], [place] [address] Sep, [facility] [address] [id number] [address] [place] [address], [place] [address] Sep, [facility] [address] [id number] [address] [place] [address], [place] [address] Aug, [facility] [address] [id number] [address] [place] [address], [place] [address] Aug, [facility] [address] [id number] [address] [place] [address], [place] [address] Aug, [facility] [address] [id number] [address] [place] [address], [place] [address] Aug, [facility] [address] [id number] [address] [place] [address], [place] [address] Aug, [facility] [address] [id number] [address] [place] [address], [place] [address] Aug, [facility] [address] [id number] [address] [place] [address], [place] [address] Jul, [facility] [address] [id number] [address] [place] [address], [place] [address] Jul, [facility] [address] [id number] [address] [place] [address], [place] [address] Jun, [facility] [address] [id number] [address] [place] [address], [place] [address] Jun, [facility] [address] [id number] [address] [place] [address], [place] [address] Jun, [facility] [address] [id number] [address] [place] [address], [place] [address] Jun, [facility] [address] [id number] [address] [place] [address], [place] [address] May, [facility] [address] [id number] [address] [place] [address], [place] [address] May, [facility] [address] [id number] [address] [place] [address], [place] [address] May, [facility] [address] [id number] [address] [place] [address], [place] [address] May, [facility] [address] [id number] [address] [place] [address], [place] [address] Apr, [facility] [address] [id number] [address] [place] [address], [place] [address] Apr, [facility] [address] [id number] [address] [place] [address], [place] [address] Apr, [facility] [address] [id number] [address] [place] [address], [place] [address] Apr, [facility] [address] [id number] [address] [place] [address], [place] [address] Apr, [facility] [address] [id number] [address] [place] [address], [place] [address] Apr, [facility] [address] [id number] [address] [place] [address], [place] [address] Mar, [facility] [address] [id number] [address] [place] [address], [place] [address] Mar, [facility] [address] [id number] [facility] [place] [address] Mar, [facility] [address] [id number] [address] [place] [address], [place] [address] Mar, [facility] [address] [id number] [address] [place] [address], [place] [address] Feb, [facility] [address] [id number] [address] [place] [address], [place] [address] Feb, [facility] [address] [id number] [address] [place] [address], [place] [address] Feb, [facility] [address] [id number] [address] [place] [address], [place] [address] January, [facility] [address] [id number] [address] [place] [address], [place] [address] January, [facility] [address] [id number] [address] [place] [address], [place] [address] January, [facility] [address] [id number] [address] [place] [address], [place] [address] January, [facility] [address] [id number] [address] [place] [address], [place] [address] January, [facility] [address] [id number] [address] [place] [address], [place] [address] January, [facility] [address] [id number] [address] [place] [address], [place] [address] January, [facility] [address] [id number] [address] [place] [address], [place] [address] January, [facility] [address] [id number] [address] [place] [address], [place] [address] Dec, [facility] [address] [id number] [address] [place] [address], [place] [address] Dec, [facility] [address] [id number] [facility] [place] [address] Dec, [facility] [address] [id number] [address] [place] [address], [place] [address] Dec, [facility] [address] [id number] [address] [place] [address], [place] [address] Dec, [facility] [address] [id number] [address] [place] [address], [place] [address] Dec, [facility] [address] [id number] [address] [place] [address], [place] [address] Dec, [facility] [address] [id number] [address] [place] [address], [place] [address] Nov, [facility] [address] [id number] [address] [place] [address], [place] [address] Nov, [facility] [address] [id number] [address] [place] [address], [place] [address] Nov, [facility] [address] [id number] [address] [place] [address], [place] [address] Nov, [facility] [address] [id number] [address] [place] [address], [place] [address] Nov, [facility] [address] [id number] [address] [place] [address], [place] [address] Nov, [facility] [address] [id number] [address] [place] [address], [place] [address] Nov, [facility] [address] [id number] [address] [place] [address], [place] [address] Nov, [facility] [address] [id number] [address] [place] [address], [place] [address] 07 Nov, 2013 [facility] [address] [id number] [address] [place] [address], [place] [address] Nov, [facility] [address] [id number] [address] [place] [address], [place] [address] 07 Nov, 2013 [facility] [address] [id number] [address] [place] [address], [place] [address] 07 Nov, 2013 [facility] [address] [id number] [address] [place] [address], [place] [address] 07 Oct, 2013 [facility] [address] [id number] [address] [place] [address], [place] [address] 07 Oct, 2013 [facility] [address] [id number] [address] [place] [address], [place] [address] Sep, [facility] [address] [id number] [address] [place] [address], [place] [address] Sep, [facility] [address] [id number] [address] [place] [address], [place] [address] Sep, [facility] [address] [id number] [address] [place] [address], [place] [address] Sep, [facility] [address] [id number] [address] [place] [address], [place] [address] Aug, [facility] [address] [id number] [address] [place] [address], [place] [address] Aug, [facility] [address] [id number] [address] [place] [address], [place] [address] 15 Jul, 2013 [facility] [address] [id number] [address] [place] [address], [place] [address] Jul, [facility] [address] [id number] [address] [place] [address], [place] [address] 15 Jul, 2013 [facility] [address] [id number] [address] [place] [address], [place] [address] Jul, [facility] [address] [id number] [address] [place] [address], [place] [address] Jun, [facility] [address] [id number] [address] [place] [address], [place] [address] Jun, [facility] [address] [id number] [address] [place] [address], [place] [address] 18 Jun, 2013 [facility] [address] [id number] [address] [place] [address], [place] [address] 18 Jun, 2013 [facility] [address] [id number] [address] [place] [address], [place] [address] 14 Jun, 2013 [facility] [address] [id number] [address] [place] [address], [place] [address] 14 Jun, 2013 [facility] [address] [id number] [address] [place] [address], [place] [address] 20 May, 2013 [facility] [address] [id number] [address] [place] [address], [place] [address] 18 May, 2013 [facility] [address] [id number] [address] [place] [address], [place] [address] 16 May, 2013 [facility] [address] [id number] [address] [place] [address], [place] [address] Apr, [facility] [address] [id number] [address] [place] [address], [place] [address] Apr, [facility] [address] [id number] [address] [place] [address], [place] [address] Apr, [facility] [address] [id number] [address] [place] [address], [place] [address] Mar, [facility] [address] [id number] [address] [place] [address], [place] [address] Mar, [facility] [address] [id number] [address] [place] [address], [place] [address] Feb, [facility] [address] [id number] [address] [place] [address], [place] [address] Feb, [facility] [address] [id number] [address] [place] [address], [place] [address] Feb, [facility] [address] [id number] [address] [place] [address], [place] [address] January, [facility] [address] [id number] [address] [place] [address], [place] [address] January, [facility] [address] [id number] [address] [place] [address], [place] [address] January, [facility] [address] [id number] [address] [place] [address], [place] [address] 15 Dec, 2012 [facility] [address] [id number] [address] [place] [address], [place] [address] 11 Dec, 2012 [facility] [address] [id number] [address] [place] [address], [place] [address] 08 Dec, 2012 [facility] [address] [id number] [address] [place] [address], [place] [address] 19 Nov, 2012 [facility] [address] [id number] [address] [place] [address], [place] [address] 14 Nov, 2012 [facility] [address] [id number] [address] [place] [address], [place] [address] Nov, [facility] [address] [id number] [address] [place] [address], [place] [address] 18 Oct, 2012 [facility] [address] [id number] [address] [place] [address], [place] [address] Oct, [facility] [address] [id number] [address] [place] [address], [place] [address] Sep, [facility] [address] [id number] [address] [place] [address], [place] [address] Sep, [facility] [address] [id number] [address] [place] [address], [place] [address] Sep, [facility] [address] [id number] [address] [place] [address], [place] [address] Aug, [facility] [address] [id number] [address] [place] [address], [place] [address] Aug, [facility] [address] [id number] [address] [place] [address], [place] [address] Aug, [facility] [address] [id number] [address] [place] [address], [place] [address] Aug, [facility] [address] [id number] [address] [place] [address], [place] [address] Aug, [facility] [address] [id number] [address] [place] [address], [place] [address] Jul, [facility] [address] [id number] [address] [place] [address], [place] [address] Jul, [facility] [address] [id number] [address] [place] [address], [place] [address] Jul, [facility] [address] [id number] [address] [place] [address], [place] [address] Jul, [facility] [address] [id number] [address] [place] [address], [place] [address] Jul, [facility] [address] [id number] [address] [place] [address], [place] [address] Jul, [facility] [address] [id number] [address] [place] [address], [place] [address] Jun, [facility] [address] [id number] [address] [place] [address], [place] [address] Jun, [facility] [address] [id number] [address] [place] [address], [place] [address] Jun, [facility] [address] [id number] [address] [place] [address], [place] [address] Jun, [facility] [address] [id number] [address] [place] [address], [place] [address] May, [facility] [address] [id number] [address] [place] [address], [place] [address] 06 May, 2012 [facility] [address] [id number] [address] [place] [address], [place] [address] Apr, [facility] [address] [id number] [address] [place] [address], [place] [address] 15 Apr, 2012 [facility] [address] [id number] [address] [place] [address], [place] [address] 14 Apr, 2012 [facility] [address] [id number] [address] [place] [address], [place] [address] 17 Mar, 2012 [facility] [address] [id number] [address] [place] [address], [place] [address] Mar, [facility] [address] [id number] [address] [place] [address], [place] [address] Feb, [facility] [address] [id number] [address] [place] [address], [place] [address] 24 Jan, 2012 [facility] [address] [id number] [address] [place] [address], [place] [address] January, [facility] [address] [id number] [address] [place] [address], [place] [address] Dec, [facility] [address] [id number] [address] [place] [address], [place] [address] Dec, [facility] [address] [id number] [address] [place] [address], [place] [address] 05 Dec, 2011 [facility] [address] [id number] [address] [place] [address], [place] [address] Dec, [facility] [address] [id number] [address] [place] [address], [place] [address] 30 Nov, 2011 [facility] [address] [id number] [address] [place] [address], [place] [address] Nov, [facility] [address] [id number] [address] [place] [address], [place] [address] 15 Nov, 2011 [facility] [address] [id number] [address] [place] [address], [place] [address] Nov, [facility] [address] [id number] [address] [place] [address], [place] [address] 14 Oct, 2011 [facility] [address] [id number] [address] [place] [address], [place] [address] 09 Oct, 2011 [facility] [address] [id number] [address] [place] [address], [place] [address] 13 Sep, 2011 [facility] [address] [id number] [address] [place] [address], [place] [address] 30 Aug, 2011 [facility] [address] [id number] [address] [place] [address], [place] [address] Aug, [facility] [address] [id number] [address] [place] [address], [place] [address] Aug, [facility] [address] [id number] [address] [place] [address], [place] [address] Jul, [facility] [address] [id number] [address] [place] [address], [place] [address] Jul, [facility] [address] [id number] [address] [place] [address], [place] [address] Jul, [facility] [address] [id number] [address] [place] [address], [place] [address] 20 Jun, 2011 [facility] [address] [id number] [address] [place] [address], [place] [address] 14 Jun, 2011 [facility] [address] [id number] [address] [place] [address], [place] [address] 13 Jun, 2011 [facility] [address] [id number] [address] [place] [address], [place] [address] 13 Jun, 2011 [facility] [address] [id number] [address] [place] [address], [place] [address] 19 May, 2011 [facility] [address] [id number] [address] [place] [address], [place] [address] January, [facility] [address] [id number] [address] [place] [address], [place] [address] Aug, [facility] [address] [id number] [address] [place] [phone] Aug, [facility] [address] [id number] [address] [place] [phone] Aug, [facility] [address] [id number] [address] [place] [phone] Aug, [facility] [address] [id number] [address] [place] [phone] Jul, [facility] [address] [id number] [address] [place] [phone] Jul, [facility] [address] [id number] [address] [place] [phone] Jun, [facility] [address] [id number] [address] [place] [phone] Jun, [facility] [address] [id number] [address] [place] [id number] 16 May, 2010 [facility] [address] [id number] [address] [place] [id number] January, IMMUNIZATIONS No Known Immunizations SOCIAL HISTORY Never Assessed REASON FOR VISIT PLAN OF CARE VITAL SIGNS Height 62 in 2013-03-10 Weight 147.3 lbs 2013-03-10 Temperature 97.8 degrees Fahrenheit 2013-03-10 Heart Rate 76 bpm 2013-03-10 Respiratory Rate 20 2013-03-10 Blood pressure systolic 146 mmHg 2013-03-10 Blood pressure diastolic 72 mmHg 2013-03-10 MEDICATIONS Unknown Medications RESULTS No Results PROCEDURES [...]
--- OUTSIDE RECORDS SUMMARY | 2020-03-25 20:39 | XMS REPORT ---
Author Author Cami GLEZ Organization [facility] Address [address] [place] [address] Care Team Providers Care Casting Operator Name Role Phone DON GLEZ Unavailable PROBLEMS Type Condition ICD9-CM Code FTI17-QB Code Onset Dates Condition S tatus SNOMED Code Problem Generalized anxiety disorder F41.1 A ctive 12398967 Problem Depressive disorder, not elsewhere classified F32. 9 Active 41079617 Problem COPD (chronic obstructive pulmonary disease) J44.9 Active 52026602 Problem Arthritis M19.90 Active 6340432 Problem Skin ulcer of left foot with fat layer exposed L97 .522 Active 55973338 Problem Hypertension I10 Active 4444388 3 Problem Slow transit constipation K59.01 Acti ve 36303326 Problem Back pain M54.9 Active 801922794 Problem Vitamin D deficiency E55.9 Active 65711861 Problem Lumbar radiculopathy M54.16 Active 273192736 Problem Venous insufficiency I87.2 Active 35541976 Problem Basal cell carcinoma (BCC) of skin of right ear C4 4.212 Active 039313167 ALLERGIES No Information ENCOUNTERS Encounter Location Date Diagnosis [place] [address] [facility] [id number] [address] [place] [id number] 24 Feb, 2020 [facility] [address] [facility] [id number] [address] [place] [id number] 19 Feb, 2020 Lumbar radiculopathy M54.16 ; Arthritis M19.90 and Slow transit constipation K59.01 [facility] [address] [facility] [id number] [address] [place] [id number] 16 Feb, 2020 [facility] [address] [facility] [id number] [address] [place] [id number] 09 Feb, 2020 Back pain M54.9 [place] [address] [facility] [id number] [address] [place] [id number] 08 Feb, 2020 Radiculopathy, lumbar region M54.16 and Lumbar radiculopathy M54.[address] [id number] [address] 04 Feb, 2020 Radiculopathy, lumbar region M54.16 and Lumbar radiculopathy M54.16 [facility] [address] [id number] [address] [place] [id number] January, Slow transit constipation K5 9.01 [facility] [address] [id number] [address] [place] [id number] January, [facility] [address] [id number] [address] [place] [id number] January, Lumbar radiculopathy M54.16 [facility] [address] [id number] [address] [place] [id number] January, Radiculopathy, lumbar region M54.16 and Lumbar radiculopathy M54.16 [facility] [address] [id number] [address] [place] [id number] 24 Dec, [address] [id number] [address] 24 Dec, 2019 [facility] [address] [id number] [address] [place] [id number] 14 Dec, 2019 Radiculopathy, lumbar region M54.[address] [id number] [address] 14 Dec, 2019 Radiculopathy, lumbar region M54.16 [facility] [address] [id number] [address] [place] [id number] 09 Dec, 2019 Lumbar radiculopathy M54.16 [facility] [address] [id number] [address] [place] [id number] 02 Dec, 2019 [facility] [address] [id number] [address] [place] [id number] 20 Nov, 2019 [facility] [address] [id number] [address] [place] [id number] 18 Nov, 2019 [facility] [address] [id number] [address] [place] [id number] 17 Nov, 2019 Weight loss R63.4 ; Skin ulc er of left foot with fat layer exposed L97.522 ; Basal cell carcinoma (BCC) of skin of right ear C44.212 ; Hypertension I10 and Lumbar radiculopathy M54.16 [facility] [address] [id number] [address] [place] [id number] 11 Nov, 2019 Back pain M54.9 and Radiculo peg, lumbar region M54.16 [facility] [address] [id number] [address] [place] [id number] 20 Oct, 2019 Radiculopathy, lumbar region M54.16 [facility] [address] [id number] [address] [place] [id number] 19 Oct, 2019 [facility] [address] [id number] [address] [place] [id number] 11 Oct, 2019 Back pain M54.9 [facility] [address] [id number] [address] [place] [id number] 10 Oct, 2019 [facility] [address] [id number] [address] [place] [id number] 06 Oct, 2019 Skin sore L98.9 [facility] [address] [id number] [address] [place] [id number] 24 Sep, 2019 Radiculopathy, lumbar region M54.16 [facility] [address] [id number] [address] [place] [id number] 15 Sep, 2019 Back pain M54.9 [facility] [address] [id number] [address] [place] [id number] 14 Sep, 2019 Generalized anxiety disorder F41.1 [facility] [address] [id number] [address] [place] [id number] Aug, Radiculopathy, lumbar region M54.16 [facility] [address] [id number] [address] [place] [id number] Aug, Back pain M54.9 [facility] [address] [id number] [address] [place] [id number] Aug, Lumbar radiculopathy M54.16 ; Generalized anxiety disorder F41.1 and Drug-induced constipation K59.03 [facility] [address] [id number] [address] [place] [id number] Jul, Radiculopathy, lumbar region M54.16 [facility] [address] [id number] [address] [place] [id number] Jul, [facility] [address] [id number] [address] [place] [id number] Jul, [facility] [address] [id number] [address] [place] [id number] Jul, Back pain M54.9 [facility] [address] [id number] [address] [place] [id number] Jul, Radiculopathy, lumbar region M54.16 [facility] [address] [id number] [address] [place] [id number] Jul, Radiculopathy, lumbar region M54.16 [facility] [address] [id number] [address] [place] [id number] Jun, Back pain M54.9 [facility] [address] [id number] [address] [place] [id number] Jun, [facility] [address] [id number] [address] [place] [id number] Jun, Radiculopathy, lumbar region M54.16 [facility] [address] [facility] [id number] [address] [place] [id number] 08 Jun, 2019 [facility] [address] [id number] [address] [place] [id number] 30 May, 2019 Back pain M54.9 [facility] [address] [facility] [id number] [address] [place] [id number] May, Cellulitis of other specifie d site L03.818 ; Dermatitis L30.9 and Lumbar radiculopathy M54.16 [facility] [address] [id number] [address] [place] [id number] May, [facility] [address] [facility] [id number] [address] [place] [id number] May, Back pain M54.9 [facility] [address] [facility] [id number] [address] [place] [id number] 05 May, 2019 [facility] [address] [facility] [id number] [address] [place] [id number] 04 May, 2019 Back pain M54.9 [facility] [address] [facility] [id number] [address] [place] [id number] 14 Apr, 2019 [facility] [address] [facility] [id number] [address] [place] [phone] Apr, Back pain M54.9 [facility] [address] [facility] [id number] [address] [place] [id number] Apr, Hyponatremia E87.1 [facility] [address] [facility] [id number] [address] [place] [id number] Apr, Hyponatremia E87.1 [facility] [address] [facility] [id number] [address] [place] [id number] Mar, Arthritis M19.90 ; Impacted cerumen of right ear H61.21 and Hypertension I10 [facility] [id number] [id number] Mar, [facility] [address] [id number] [address] [place] [id number] Mar, Back pain M54.9 [facility] [address] [id number] [address] [place] [id number] Feb, Back pain M54.9 [facility] [address] [id number] [address] [place] [id number] Feb, [facility] [address] [id number] [address] [place] [id number] Feb, Dermatitis L30.9 [facility] [address] [id number] [address] [place] [id number] January, Dermatitis L30.9 [facility] [address] [id number] [address] [place] [id number] January, [facility] [address] [id number] [address] [place] [id number] January, Back pain M54.9 [facility] [address] [id number] [address] [place] [id number] Dec, [facility] [address] [id number] [address] [place] [id number] Dec, Back pain M54.9 [facility] [address] [id number] [address] [place] [id number] Dec, Lumbar radiculopathy M54.16 ; Arthritis M19.90 and Dyshydrosis L30.1 [facility] [address] [id number] [address] [place] [id number] Nov, Back pain M54.9 [facility] [address] [id number] [address] [place] [id number] Nov, [facility] [address] [id number] [address] [place] [id number] Oct, [facility] [address] [id number] [address] [place] [id number] Oct, Back pain M54.9 [facility] [address] [id number] [address] [place] [id number] Oct, [facility] [address] [id number] [address] [place] [id number] Oct, [facility] [address] [id number] [address] [place] [id number] Sep, Back pain M54.9 [facility] [address] [id number] [address] [place] [id number] Sep, [facility] [address] [facility] [id number] [address] [place] [id number] Aug, Back pain M54.9 [facility] [address] [facility] [id number] [address] [place] [id number] Aug, Encounter for immunization Z 23 ; Arthritis M19.90 and Generalized anxiety disorder F41.1 [facility] [address] [id number] [address] [place] [id number] Aug, [facility] [address] [facility] [id number] [address] [place] [id number] Aug, [facility] [address] [facility] [id number] [address] [place] [id number] Jul, Back pain M54.9 [facility] [address] [id number] [address] [place] [id number] Jul, [facility] [address] [id number] [address] [place] [id number] Jul, [facility] [address] [facility] [id number] [address] [place] [id number] Jun, Back pain M54.9 [facility] [address] [id number] [address] [place] [id number] Jun, [facility] [address] [facility] [id number] [address] [place] [id number] Jun, Back pain M54.9 [facility] [address] [id number] [address] [place] [id number] 11 May, 2018 Lumbar radiculopathy M54.16 ; Hypertension I10 and Generalized anxiety disorder F41.1 [facility] [address] [id number] [address] [place] [id number] 06 May, 2018 Back pain M54.9 [facility] [address] [id number] [address] [place] [id number] Apr, [facility] [address] [id number] [address] [place] [id number] Apr, [facility] [address] [id number] [address] [place] [id number] Apr, Back pain M54.9 [facility] [address] [id number] [address] [place] [id number] Mar, Back pain M54.9 [facility] [address] [id number] [address] [place] [id number] Feb, [facility] [address] [id number] [address] [place] [id number] Feb, [facility] [address] [id number] [address] [place] [id number] 15 Feb, 2018 [facility] [address] [id number] [address] [place] [id number] Feb, Back pain M54.9 [facility] [address] [id number] [address] [place] [id number] Feb, Back pain M54.9 ; Hypertensi on I10 ; Generalized anxiety disorder F41.1 and Venous insufficiency I87.2 [facility] [address] [id number] [address] [place] [id number] January, [facility] [address] [id number] [address] [place] [id number] January, Back pain M54.9 [facility] [address] [id number] [address] [place] [id number] Dec, [facility] [address] [id number] [address] [place] [id number] Dec, Back pain M54.9 [facility] [address] [id number] [address] [place] [id number] Nov, Back pain M54.9 [facility] [address] [id number] [address] [place] [id number] Nov, [facility] [address] [id number] [address] [place] [id number] Nov, Lumbar radiculopathy M54.16 ; Hypertension I10 ; Arthritis M19.90 and Back pain M54.9 [facility] [address] [id number] [address] [place] [id number] Oct, Back pain M54.9 [facility] [address] [id number] [address] [place] [id number] Oct, [facility] [address] [id number] [address] [place] [id number] Sep, Back pain M54.9 [facility] [address] [id number] [address] [place] [id number] Sep, [facility] [address] [id number] [address] [place] [id number] Aug, Back pain M54.9 [facility] [address] [id number] [address] [place] [id number] Jul, Back pain M54.9 [facility] [address] [facility] [id number] [address] [place] [id number] 09 Jul, 2017 Encounter for immunization Z 23 ; Back pain M54.9 ; Hypertension I10 and Lumbar radiculopathy M54.16 [facility] [address] [id number] [address] [place] [id number] Jul, Back pain M54.9 [facility] [address] [id number] [address] [place] [id number] Jun, Vitamin D deficiency E55.9 [facility] [address] [id number] [address] [place] [id number] 04 Jun, 2017 Back pain M54.9 [facility] [address] [id number] [address] [place] [id number] May, [facility] [address] [id number] [address] [place] [phone] May, [facility] [address] [id number] [address] [place] [id number] May, [facility] [address] [facility] [id number] [address] [place] [id number] May, Back pain M54.9 [facility] [address] [facility] [id number] [address] [place] [id number] Apr, Back pain M54.9 ; Hypertensi on I10 ; Arthritis M19.90 and Generalized anxiety disorder F41.1 [facility] [address] [facility] [id number] [address] [place] [id number] Apr, Back pain M54.9 [facility] [address] [facility] [id number] [address] [place] [id number] Mar, Back pain M54.9 [facility] [address] [facility] [id number] [address] [place] [id number] 10 Mar, 2017 Vitamin D deficiency E55.9 [facility] [address] [facility] [id number] [address] [place] [id number] 15 Feb, 2017 Vitamin D deficiency E55.9 [facility] [address] [facility] [id number] [address] [place] [id number] 14 Feb, 2017 Vitamin D deficiency E55.9 [facility] [address] [id number] [address] [place] [id number] Feb, Back pain M54.9 [facility] [address] [id number] [address] [place] [id number] January, Back pain M54.9 [facility] [address] [facility] [id number] [address] [place] [id number] January, Arthritis M19.90 [facility] [address] [facility] [id number] [address] [place] [id number] January, Vitamin D deficiency E55.9 a nd Arthritis M19.90 [facility] [address] [facility] [id number] [address] [place] [id number] Dec, Medicare annual wellness vis it, initial Z00.00 and Encounter for immunization Z23 [facility] [address] [facility] [id number] [address] [place] [id number] Dec, Back pain M54.9 [facility] [address] [facility] [id number] [address] [place] [id number] Nov, Back pain M54.9 [facility] [address] [facility] [id number] [address] [place] [id number] 24 Oct, 2016 Back pain M54.9 [facility] [address] [facility] [id number] [address] [place] [id number] 14 Oct, 2016 COPD (chronic obstructive pu lmonary disease) J44.9 [facility] [address] [facility] [id number] [address] [place] [id number] 14 Oct, 2016 [facility] [address] [facility] [id number] [address] [place] [id number] 02 Oct, 2016 Hypertension I10 ; Back pain M54.9 and Encounter for immunization Z23 [facility] [address] [id number] [address] [place] [id number] Sep, [facility] [address] [facility] [id number] [address] [place] [id number] Sep, Back pain M54.9 [facility] [address] [id number] [address] [place] [id number] Sep, Back pain M54.9 [facility] [address] [id number] [address] [place] [id number] Aug, [facility] [address] [id number] [address] [place] [id number] Aug, Back pain M54.9 [facility] [address] [id number] [address] [place] [id number] Aug, [facility] [address] [id number] [address] [place] [id number] Aug, [facility] [address] [id number] [address] [place] [id number] Aug, Back pain M54.9 [facility] [address] [id number] [address] [place] [id number] Jul, [facility] [address] [id number] [address] [place] [id number] Jul, Back pain M54.9 [facility] [address] [id number] [address] [place] [id number] Jun, Back pain M54.9 ; Hypertensi on I10 ; Generalized anxiety disorder F41.1 and Encounter for immunization Z23 [facility] [address] [id number] [address] [place] [id number] Jun, [facility] [address] [id number] [address] [place] [id number] May, [facility] [address] [id number] [address] [place] [id number] Apr, [facility] [address] [id number] [address] [place] [id number] Apr, [facility] [address] [id number] [address] [place] [id number] Mar, [facility] [address] [id number] [address] [place] [id number] Mar, [facility] [address] [id number] [address] [place] [id number] 15 Mar, 2016 [facility] [address] [id number] [address] [place] [id number] Feb, Back pain M54.9 and Hyperten madelyn I10 [facility] [address] [id number] [address] [place] [id number] 17 Feb, 2016 Back pain M54.9 [facility] [address] [id number] [address] [place] [id number] Dec, COPD (chronic obstructive pu lmonary disease) J44.9 [facility] [address] [id number] [address] [place] [id number] Dec, [facility] [address] [id number] [address] [place] [id number] Dec, Back pain M54.9 [facility] [address] [id number] [address] [place] [id number] 24 Nov, 2015 Back pain M54.9 [facility] [address] [id number] [address] [place] [id number] Nov, COPD (chronic obstructive pu lmonary disease) J44.9 [facility] [address] [id number] [address] [place] [id number] 04 Nov, 2015 Hypertension I10 and Back pa in M54.9 [facility] [address] [id number] [address] [place] [id number] Oct, Hypertension I10 and Back pa in M54.9 [facility] [address] [id number] [address] [place] [id number] Oct, Back pain M54.9 [facility] [address] [id number] [address] [place] [id number] Sep, Back pain M54.9 [facility] [address] [id number] [address] [place] [id number] Sep, [facility] [address] [id number] [address] [place] [id number] Sep, [facility] [address] [id number] [address] [place] [id number] Sep, [facility] [address] [id number] [address] [place] [id number] Sep, [facility] [address] [id number] [address] [place] [id number] Aug, [facility] [address] [id number] [address] [place] [id number] Aug, [facility] [address] [id number] [address] [place] [id number] Aug, [facility] [address] [id number] [address] [place] [phone] Aug, [facility] [address] [id number] [address] [place] [id number] Aug, [facility] [address] [id number] [address] [place] [id number] Jul, [facility] [address] [id number] [address] [place] [phone] Jul, Back pain M54.9 ; Arthritis M19.90 ; Hypertension I10 and Encounter for immunization Z23 [facility] [address] [id number] [address] [place] [id number] Jul, Generalized anxiety disorder F41.1 and Depressive disorder, not elsewhere classified F32.9 [facility] [address] [id number] [address] [place] [address] Jul, [facility] [address] [id number] [address] [place] [address] Jul, [facility] [address] [id number] [address] [place] [address] Jul, [facility] [place] [address] [id number] [address] [place] [address] Jun, [facility] [address] [id number] [address] [place] [id number] Jun, [facility] [place] [address] [id number] [address] [place] [phone] May, [facility] [address] [id number] [address] [place] [address] May, [facility] [address] [id number] [address] [place] [address] May, [facility] [address] [id number] [address] [place] [address] May, [facility] [address] [id number] [address] [place] [address] May, Benign essential hypertensio n 401.1 ; Anxiety state, unspecified 300.00 ; Back pain 724.5 and Arthritis 716.90 [facility] [place] [address] [id number] [address] [place] [id number] May, [facility] [address] [id number] [address] [place] [address] Apr, [facility] [address] [id number] [address] [place] [address] Apr, [facility] [address] [id number] [address] [place] [address] Apr, [facility] [address] [id number] [address] [place] [address] Mar, [facility] [address] [id number] [address] [place] [id number] Mar, [facility] [address] [id number] [address] [place] [address] Mar, [facility] [address] [id number] [address] [place] [address] Feb, High risk medication use V58 .69 [facility] [address] [id number] [address] [place] [id number] 15 Feb, 2015 Benign essential hypertensio n 401.1 ; Anxiety state, unspecified 300.00 and Chronic pain 338.29 [facility] [address] [id number] [address] [place] [address] Feb, [facility] [address] [id number] [address] [place] [address] January, [facility] [address] [id number] [address] [place] [address] January, [facility] [address] [id number] [address] [place] [address] January, [facility] [address] [id number] [address] [place] [address] January, [facility] [address] [id number] [address] [place] [address] Dec, [facility] [address] [id number] [address] [place] [address] Dec, [facility] [address] [id number] [address] [place] [phone] Nov, [facility] [address] [id number] [address] [place] [id number] Nov, [facility] [address] [id number] [address] [place] [address] Nov, [facility] [address] [id number] [address] [place] [address] Nov, [facility] [address] [id number] [address] [place] [address] Oct, [facility] [address] [id number] [address] [place] [address], [place] [address] Oct, 2014 [facility] [address] [id number] [address] [place] [address], [place] [address] Oct, [facility] [address] [id number] [address] [place] [address], [place] [address] Oct, [facility] [address] [id number] [address] [place] [address], [place] [address] Oct, [facility] [address] [id number] [address] [place] [address], [place] [address] Sep, [facility] [address] [id number] [address] [place] [address], [place] [address] Sep, [facility] [address] [id number] [address] [place] [address], [place] [address] Sep, [facility] [address] [id number] [address] [place] [address], [place] [address] Sep, [facility] [address] [id number] [address] [place] [address], [place] [address] Aug, [facility] [address] [id number] [address] [place] [address], [place] [address] Aug, [facility] [address] [id number] [address] [place] [address], [place] [address] Aug, [facility] [address] [id number] [address] [place] [address], [place] [address] Aug, [facility] [address] [id number] [address] [place] [address], [place] [address] Aug, [facility] [address] [id number] [address] [place] [address], [place] [address] Aug, [facility] [address] [id number] [address] [place] [address], [place] [address] Jul, [facility] [address] [id number] [address] [place] [address], [place] [address] Jul, [facility] [address] [id number] [address] [place] [address], [place] [address] Jun, [facility] [address] [id number] [address] [place] [address], [place] [address] Jun, [facility] [address] [id number] [address] [place] [address], [place] [address] Jun, [facility] [address] [id number] [address] [place] [address], [place] [address] Jun, [facility] [address] [id number] [address] [place] [address], [place] [address] May, [facility] [address] [id number] [address] [place] [address], [place] [address] May, [facility] [address] [id number] [address] [place] [address], [place] [address] May, [facility] [address] [id number] [address] [place] [address], [place] [address] May, [facility] [address] [id number] [address] [place] [address], [place] [address] Apr, [facility] [address] [id number] [address] [place] [address], [place] [address] Apr, [facility] [address] [id number] [address] [place] [address], [place] [address] Apr, [facility] [address] [id number] [address] [place] [address], [place] [address] Apr, [facility] [address] [id number] [address] [place] [address], [place] [address] Apr, [facility] [address] [id number] [address] [place] [address], [place] [address] Apr, [facility] [address] [id number] [address] [place] [address], [place] [address] Mar, [facility] [address] [id number] [address] [place] [address], [place] [address] Mar, [facility] [address] [id number] [facility] [address] Mar, [facility] [address] [id number] [address] [place] [address], [place] [address] Mar, [facility] [address] [id number] [address] [place] [address], [place] [address] Feb, [facility] [address] [id number] [address] [place] [address], [place] [address] Feb, [facility] [address] [id number] [address] [place] [address], [place] [address] Feb, [facility] [address] [id number] [address] [place] [address], [place] [address] January, [facility] [address] [id number] [address] [place] [address], [place] [address] January, [facility] [address] [id number] [address] [place] [address], [place] [address] January, [facility] [address] [id number] [address] [place] [address], [place] [address] January, [facility] [address] [id number] [address] [place] [address], [place] [address] January, [facility] [address] [id number] [address] [place] [address], [place] [address] January, [facility] [address] [id number] [address] [place] [address], [place] [address] January, [facility] [address] [id number] [address] [place] [address], [place] [address] January, [facility] [address] [id number] [address] [place] [address], [place] [address] Dec, [facility] [address] [id number] [address] [place] [address], [place] [address] Dec, [facility] [address] [id number] [facility] [address] Dec, [facility] [address] [id number] [address] [place] [address], [place] [address] Dec, [facility] [address] [id number] [address] [place] [address], [place] [address] Dec, [facility] [address] [id number] [address] [place] [address], [place] [address] Dec, [facility] [address] [id number] [address] [place] [address], [place] [address] Dec, [facility] [address] [id number] [address] [place] [address], [place] [address] Nov, [facility] [address] [id number] [address] [place] [address], [place] [address] Nov, [facility] [address] [id number] [address] [place] [address], [place] [address] Nov, [facility] [address] [id number] [address] [place] [address], [place] [address] Nov, [facility] [address] [id number] [address] [place] [address], [place] [address] Nov, [facility] [address] [id number] [address] [place] [address], [place] [address] Nov, [facility] [address] [id number] [address] [place] [address], [place] [address] Nov, [facility] [address] [id number] [address] [place] [address], [place] [address] Nov, [facility] [address] [id number] [address] [place] [address], [place] [address] 07 Nov, 2013 [facility] [address] [id number] [address] [place] [address], [place] [address] Nov, [facility] [address] [id number] [address] [place] [address], [place] [address] 07 Nov, 2013 [facility] [address] [id number] [address] [place] [address], [place] [address] 07 Nov, 2013 [facility] [address] [id number] [address] [place] [address], [place] [address] 07 Oct, 2013 [facility] [address] [id number] [address] [place] [address], [place] [address] 07 Oct, 2013 [facility] [address] [id number] [address] [place] [address], [place] [address] Sep, [facility] [address] [id number] [address] [place] [address], [place] [address] Sep, [facility] [address] [id number] [address] [place] [address], [place] [address] Sep, [facility] [address] [id number] [address] [place] [address], [place] [address] Sep, [facility] [address] [id number] [address] [place] [address], [place] [address] Aug, [facility] [address] [id number] [address] [place] [address], [place] [address] Aug, [facility] [address] [id number] [address] [place] [address], [place] [address] 15 Jul, 2013 [facility] [address] [id number] [address] [place] [address], [place] [address] Jul, [facility] [address] [id number] [address] [place] [address], [place] [address] 15 Jul, 2013 [facility] [address] [id number] [address] [place] [address], [place] [address] Jul, [facility] [address] [id number] [address] [place] [address], [place] [address] Jun, [facility] [address] [id number] [address] [place] [address], [place] [address] Jun, [facility] [address] [id number] [address] [place] [address], [place] [address] 18 Jun, 2013 [facility] [address] [id number] [address] [place] [address], [place] [address] 18 Jun, 2013 [facility] [address] [id number] [address] [place] [address], [place] [address] 14 Jun, 2013 [facility] [address] [id number] [address] [place] [address], [place] [address] 14 Jun, 2013 [facility] [address] [id number] [address] [place] [address], [place] [address] 20 May, 2013 [facility] [address] [id number] [address] [place] [address], [place] [address] 18 May, 2013 [facility] [address] [id number] [address] [place] [address], [place] [address] 16 May, 2013 [facility] [address] [id number] [address] [place] [address], [place] [address] Apr, [facility] [address] [id number] [address] [place] [address], [place] [address] Apr, [facility] [address] [id number] [address] [place] [address], [place] [address] Apr, [facility] [address] [id number] [address] [place] [address], [place] [address] Mar, [facility] [address] [id number] [address] [place] [address], [place] [address] Mar, [facility] [address] [id number] [address] [place] [address], [place] [address] Feb, [facility] [address] [id number] [address] [place] [address], [place] [address] Feb, [facility] [address] [id number] [address] [place] [address], [place] [address] Feb, [facility] [address] [id number] [address] [place] [address], [place] [address] January, [facility] [place] [address] [id number] [address] [place] [address], [place] [address] January, [facility] [address] [id number] [address] [place] [address], [place] [address] January, [facility] [place] [address] [id number] [address] [place] [address], [place] [address] 15 Dec, 2012 [facility] [address] [id number] [address] [place] [address], [place] [address] 11 Dec, 2012 [facility] [address] [id number] [address] [place] [address], [place] [address] 08 Dec, 2012 [facility] [address] [id number] [address] [place] [address], [place] [address] 19 Nov, 2012 [facility] [place] [address] [id number] [address] [place] [address], [place] [address] 14 Nov, 2012 [facility] [address] [id number] [address] [place] [address], [place] [address] Nov, [facility] [place] [address] [id number] [address] [place] [address], [place] [address] 18 Oct, 2012 [facility] [place] [address] [id number] [address] [place] [address], [place] [address] Oct, [facility] [place] [address] [id number] [address] [place] [address], [place] [address] Sep, [facility] [address] [id number] [address] [place] [address], [place] [address] Sep, [facility] [address] [id number] [address] [place] [address], [place] [address] Sep, [facility] [address] [id number] [address] [place] [address], [place] [address] Aug, [facility] [address] [id number] [address] [place] [address], [place] [address] Aug, [facility] [address] [id number] [address] [place] [address], [place] [address] Aug, [facility] [address] [id number] [address] [place] [address], [place] [address] Aug, [facility] [address] [id number] [address] [place] [address], [place] [address] Aug, [facility] [address] [id number] [address] [place] [address], [place] [address] Jul, [facility] [address] [id number] [address] [place] [address], [place] [address] Jul, [facility] [address] [id number] [address] [place] [address], [place] [address] Jul, [facility] [address] [id number] [address] [place] [address], [place] [address] Jul, [facility] [address] [id number] [address] [place] [address], [place] [address] Jul, [facility] [address] [id number] [address] [place] [address], [place] [address] Jul, [facility] [address] [id number] [address] [place] [address], [place] [address] Jun, [facility] [address] [id number] [address] [place] [address], [place] [address] Jun, [facility] [address] [id number] [address] [place] [address], [place] [address] Jun, [facility] [address] [id number] [address] [place] [address], [place] [address] Jun, [facility] [address] [id number] [address] [place] [address], [place] [address] May, [facility] [address] [id number] [address] [place] [address], [place] [address] 06 May, 2012 [facility] [address] [id number] [address] [place] [address], [place] [address] Apr, [facility] [address] [id number] [address] [place] [address], [place] [address] 15 Apr, 2012 [facility] [address] [id number] [address] [place] [address], [place] [address] 14 Apr, 2012 [facility] [address] [id number] [address] [place] [address], [place] [address] 17 Mar, 2012 [facility] [address] [id number] [address] [place] [address], [place] [address] Mar, [facility] [address] [id number] [address] [place] [address], [place] [address] Feb, [facility] [address] [id number] [address] [place] [address], [place] [address] 24 Jan, 2012 [facility] [address] [id number] [address] [place] [address], [place] [address] January, [facility] [address] [id number] [address] [place] [address], [place] [address] Dec, [facility] [address] [id number] [address] [place] [address], [place] [address] Dec, [facility] [address] [id number] [address] [place] [address], [place] [address] 05 Dec, 2011 [facility] [address] [id number] [address] [place] [address], [place] [address] Dec, [facility] [address] [id number] [address] [place] [address], [place] [address] 30 Nov, 2011 [facility] [address] [id number] [address] [place] [address], [place] [address] Nov, [facility] [address] [id number] [address] [place] [address], [place] [address] 15 Nov, 2011 [facility] [address] [id number] [address] [place] [address], [place] [address] Nov, [facility] [address] [id number] [address] [place] [address], [place] [address] 14 Oct, 2011 [facility] [address] [id number] [address] [place] [address], [place] [address] 09 Oct, 2011 [facility] [address] [id number] [address] [place] [address], [place] [address] 13 Sep, 2011 [facility] [address] [id number] [address] [place] [address], [place] [address] 30 Aug, 2011 [facility] [address] [id number] [address] [place] [address], [place] [address] Aug, [facility] [address] [id number] [address] [place] [address], [place] [address] Aug, [facility] [address] [id number] [address] [place] [address], [place] [address] Jul, [facility] [address] [id number] [address] [place] [address], [place] [address] Jul, [facility] [address] [id number] [address] [place] [address], [place] [address] Jul, [facility] [address] [id number] [address] [place] [address], [place] [address] 20 Jun, 2011 [facility] [address] [id number] [address] [place] [address], [place] [address] 14 Jun, 2011 [facility] [address] [id number] [address] [place] [address], [place] [address] 13 Jun, 2011 [facility] [address] [id number] [address] [place] [address], [place] [address] 13 Jun, 2011 [facility] [address] [id number] [address] [place] [address], [place] [address] 19 May, 2011 [facility] [address] [id number] [address] [place] [address], [place] [address] January, [facility] [address] [id number] [address] [place] [address], [place] [address] Aug, [facility] [address] [id number] [address] [place] [address] Aug, [facility] [address] [id number] [address] [place] [address] Aug, [facility] [address] [id number] [address] [place] [address] Aug, [facility] [address] [id number] [address] [place] [address] Jul, [facility] [address] [id number] [address] [place] [address] Jul, [facility] [address] [id number] [address] [place] [id number] Jun, [facility] [address] [id number] [address] [place] [id number] Jun, [facility] [address] [id number] [address] [place] [id number] May, [facility] [address] [id number] [address] [place] [id number] January, IMMUNIZATIONS Vaccine Route Administration Date Status influenza IIV3 (history) Unknown Aug 01, 2013 Adminis tered SOCIAL HISTORY Never Assessed REASON FOR VISIT PLAN OF CARE VITAL SIGNS MEDICATIONS Unknown Medications RESULTS No Results PROCEDURES Procedure Date Ordered Result Body Site ADMN FLU VAC NO FEE SCHED SAME DAY Aug 01, 2013 INSTRUCTIONS MEDICATIONS ADMINISTERED No Known Medications [...]
--- OUTSIDE RECORDS SUMMARY | 2020-03-25 20:39 | XMS REPORT ---
Author Author Cami GLEZ Organization [facility] [place] Address [address] [place] [address] Care Team Providers Care Exhauster Engineer Name Role Phone DON GLEZ Unavailable PROBLEMS Type Condition ICD9-CM Code [id number] Code Onset Dates Condition S tatus SNOMED Code Problem Generalized anxiety disorder F41.1 A ctive 14451294 Problem Depressive disorder, not elsewhere classified F32. 9 Active 86005920 Problem COPD (chronic obstructive pulmonary disease) J44.9 Active 01386251 Problem Arthritis M19.90 Active 1633943 Problem Skin ulcer of left foot with fat layer exposed L97 .522 Active 25584063 Problem Hypertension I10 Active 2131997 3 Problem Slow transit constipation K59.01 Acti ve 41898495 Problem Back pain M54.9 Active 310380241 Problem Vitamin D deficiency E55.9 Active 53025620 Problem Lumbar radiculopathy M54.16 Active 292480457 Problem Venous insufficiency I87.2 Active 76210604 Problem Basal cell carcinoma (BCC) of skin of right ear C4 4.212 Active 034860406 ALLERGIES No Information ENCOUNTERS Encounter Location Date Diagnosis [id number] [place] [id number] Mar, [facility] [place] [address] [facility] [place] [id number] [address] [place] [id number] Feb, [facility] [place] [address] [facility] [place] [id number] [address] [place] [address] 19 Feb, 2020 Lumbar radiculopathy M54.16 ; Arthritis M19.90 and Slow transit constipation K59.01 [facility] [place] [address] [facility] [place] [id number] [address] [place] [id number] Feb, [facility] [place] [address] [facility] [place] [id number] [address] [place] [id number] 09 Feb, 2020 Back pain M54.9 [facility] [place] [address] [id number] [address] [place] [id number] 08 Feb, 2020 Radiculopathy, lumbar region M54.16 and Lumbar radiculopathy M54.[address] [id number] [address] 04 Feb, 2020 Radiculopathy, lumbar region M54.16 and Lumbar radiculopathy M54.16 [facility] [address] [id number] [address] [place] [phone] 27 Jan, 2020 Slow transit constipation K5 9.01 [facility] [place] [address] [id number] [address] [place] [id number] 27 Jan, 2020 [facility] [place] [address] [id number] [address] [place] [address] January, Lumbar radiculopathy M54.16 [facility] [place] [address] [id number] [address] [place] [id number] 08 Jan, 2020 Radiculopathy, lumbar region M54.16 and Lumbar radiculopathy M54.16 [facility] [place] [address] [id number] [address] [place] [id number] 24 Dec, [address] [id number] [address] 24 Dec, 2019 [facility] [place] [address] [id number] [address] [place] [address] 14 Dec, 2019 Radiculopathy, lumbar region M54.[address] [id number] [address] 14 Dec, 2019 Radiculopathy, lumbar region M54.16 [facility] [place] [address] [id number] [address] [place] [id number] 09 Dec, 2019 Lumbar radiculopathy M54.16 [facility] [place] [address] [id number] [address] [place] [id number] 02 Dec, 2019 [facility] [place] [address] [id number] [address] [place] [id number] 20 Nov, 2019 [facility] [place] [address] [id number] [address] [place] [id number] 18 Nov, 2019 [facility] [place] [address] [id number] [address] [place] [address] 17 Nov, 2019 Weight loss R63.4 ; Skin ulc er of left foot with fat layer exposed L97.522 ; Basal cell carcinoma (BCC) of skin of right ear C44.212 ; Hypertension I10 and Lumbar radiculopathy M54.16 [facility] [place] [address] [id number] [address] [place] [address] 11 Nov, 2019 Back pain M54.9 and Radiculo peg, lumbar region M54.16 [facility] [place] [address] [id number] [address] [place] [id number] 20 Oct, 2019 Radiculopathy, lumbar region M54.16 [facility] [place] [address] [id number] [address] [place] [id number] 19 Oct, 2019 [facility] [place] [address] [facility] [place] [id number] [address] [place] [id number] 11 Oct, 2019 Back pain M54.9 [facility] [place] [address] [facility] [place] [id number] [address] [place] [id number] 10 Oct, 2019 [facility] [place] [address] [id number] [address] [place] [id number] 06 Oct, 2019 Skin sore L98.9 [facility] [place] [address] [id number] [address] [place] [address] 24 Sep, 2019 Radiculopathy, lumbar region M54.16 [facility] [place] [address] [facility] [place] [id number] [address] [place] [address] 15 Sep, 2019 Back pain M54.9 [facility] [place] [address] [id number] [address] [place] [address] Sep, Generalized anxiety disorder F41.1 [facility] [place] [address] [id number] [address] [place] [address] 30 Aug, 2019 Radiculopathy, lumbar region M54.16 [facility] [place] [address] [id number] [address] [place] [address] Aug, Back pain M54.9 [facility] [place] [address] [id number] [address] [place] [address] Aug, Lumbar radiculopathy M54.16 ; Generalized anxiety disorder F41.1 and Drug-induced constipation K59.03 [facility] [place] [address] [id number] [address] [place] [address] Jul, Radiculopathy, lumbar region M54.16 [facility] [place] [address] [id number] [address] [place] [address] Jul, [facility] [place] [address] [id number] [address] [place] [id number] Jul, [facility] [place] [address] [id number] [address] [place] [address] Jul, Back pain M54.9 [facility] [place] [address] [id number] [address] [place] [address] Jul, Radiculopathy, lumbar region M54.16 [facility] [place] [address] [id number] [address] [place] [phone] Jul, Radiculopathy, lumbar region M54.16 [facility] [place] [address] [id number] [address] [place] [address] Jun, Back pain M54.9 [facility] [place] [address] [id number] [address] [place] [address] Jun, [facility] [place] [address] [id number] [address] [place] [address] 08 Jun, 2019 Radiculopathy, lumbar region M54.16 [facility] [place] [address] [id number] [address] [place] [address] 08 Jun, 2019 [facility] [place] [address] [id number] [address] [place] [address] 30 May, 2019 Back pain M54.9 [facility] [place] [address] [id number] [address] [place] [address] May, Cellulitis of other specifie d site L03.818 ; Dermatitis L30.9 and Lumbar radiculopathy M54.16 [facility] [place] [address] [id number] [address] [place] [address] May, [facility] [place] [address] [id number] [address] [place] [address] May, Back pain M54.9 [facility] [place] [address] [id number] [address] [place] [address] 05 May, 2019 [facility] [place] [address] [id number] [address] [place] [id number] 04 May, 2019 Back pain M54.9 [facility] [place] [address] [id number] [address] [place] [id number] 14 Apr, 2019 [facility] [place] [address] [id number] [address] [place] [address] Apr, Back pain M54.9 [facility] [place] [address] [id number] [address] [place] [address] Apr, Hyponatremia E87.1 [facility] [place] [address] [id number] [address] [place] [address] Apr, Hyponatremia E87.1 [facility] [place] [address] [id number] [address] [place] [address] Mar, Arthritis M19.90 ; Impacted cerumen of right ear H61.21 and Hypertension I10 [facility] [id number] [place] [id number] 16 Mar, 2019 [facility] [place] [address] [id number] [address] [place] [id number] Mar, Back pain M54.9 [facility] [place] [address] [id number] [address] [place] [address] Feb, Back pain M54.9 [facility] [place] [address] [id number] [address] [place] [id number] Feb, [facility] [place] [address] [id number] [address] [place] [address] Feb, Dermatitis L30.9 [facility] [place] [address] [id number] [address] [place] [id number] January, Dermatitis L30.9 [facility] [place] [address] [id number] [address] [place] [id number] January, [facility] [place] [address] [id number] [address] [place] [address] January, Back pain M54.9 [facility] [place] [address] [id number] [address] [place] [address] Dec, [facility] [place] [address] [id number] [address] [place] [id number] Dec, Back pain M54.9 [facility] [place] [address] [id number] [address] [place] [address] Dec, Lumbar radiculopathy M54.16 ; Arthritis M19.90 and Dyshydrosis L30.1 [facility] [place] [address] [id number] [address] [place] [address] Nov, Back pain M54.9 [facility] [place] [address] [id number] [address] [place] [address] Nov, [facility] [place] [address] [id number] [address] [place] [address] Oct, [facility] [place] [address] [id number] [address] [place] [address] Oct, Back pain M54.9 [facility] [place] [address] [id number] [address] [place] [address] Oct, [facility] [place] [address] [id number] [address] [place] [id number] Oct, [facility] [place] [address] [id number] [address] [place] [address] Sep, Back pain M54.9 [facility] [place] [address] [id number] [address] [place] [address] Sep, [facility] [place] [address] [facility] [place] [id number] [address] [place] [address] Aug, Back pain M54.9 [facility] [place] [address] [facility] [place] [id number] [address] [place] [address] Aug, Encounter for immunization Z 23 ; Arthritis M19.90 and Generalized anxiety disorder F41.1 [facility] [place] [address] [id number] [address] [place] [id number] Aug, [facility] [place] [address] [facility] [place] [id number] [address] [place] [address] Aug, [facility] [place] [address] [id number] [address] [place] [address] Jul, Back pain M54.9 [facility] [place] [address] [id number] [address] [place] [id number] Jul, [facility] [place] [address] [facility] [place] [id number] [address] [place] [id number] Jul, [facility] [place] [address] [facility] [place] [id number] [address] [place] [address] Jun, Back pain M54.9 [facility] [place] [address] [id number] [address] [place] [address] Jun, [facility] [place] [address] [id number] [address] [place] [address] Jun, Back pain M54.9 [facility] [place] [address] [id number] [address] [place] [address] 11 May, 2018 Lumbar radiculopathy M54.16 ; Hypertension I10 and Generalized anxiety disorder F41.1 [facility] [place] [address] [id number] [address] [place] [address] 06 May, 2018 Back pain M54.9 [facility] [place] [address] [id number] [address] [place] [address] Apr, [facility] [place] [address] [id number] [address] [place] [address] Apr, [facility] [place] [address] [id number] [address] [place] [address] Apr, Back pain M54.9 [facility] [place] [address] [id number] [address] [place] [address] Mar, Back pain M54.9 [facility] [place] [address] [id number] [address] [place] [address] Feb, [facility] [place] [address] [id number] [address] [place] [address] Feb, [facility] [place] [address] [id number] [address] [place] [address] Feb, [facility] [place] [address] [id number] [address] [place] [id number] 14 Feb, 2018 Back pain M54.9 [facility] [place] [address] [id number] [address] [place] [address] Feb, Back pain M54.9 ; Hypertensi on I10 ; Generalized anxiety disorder F41.1 and Venous insufficiency I87.2 [facility] [place] [address] [id number] [address] [place] [address] January, [facility] [place] [address] [id number] [address] [place] [address] January, Back pain M54.9 [facility] [place] [address] [id number] [address] [place] [address] Dec, [facility] [place] [address] [id number] [address] [place] [address] Dec, Back pain M54.9 [facility] [place] [address] [id number] [address] [place] [id number] Nov, Back pain M54.9 [facility] [place] [address] [id number] [address] [place] [address] Nov, [facility] [place] [address] [id number] [address] [place] [address] Nov, Lumbar radiculopathy M54.16 ; Hypertension I10 ; Arthritis M19.90 and Back pain M54.9 [facility] [place] [address] [id number] [address] [place] [address] Oct, Back pain M54.9 [facility] [place] [address] [id number] [address] [place] [id number] Oct, [facility] [place] [address] [id number] [address] [place] [address] Sep, Back pain M54.9 [facility] [place] [address] [id number] [address] [place] [address] Sep, [facility] [place] [address] [id number] [address] [place] [address] Aug, Back pain M54.9 [facility] [place] [address] [id number] [address] [place] [address] Jul, Back pain M54.9 [facility] [place] [address] [facility] [place] [id number] [address] [place] [address] Jul, Encounter for immunization Z 23 ; Back pain M54.9 ; Hypertension I10 and Lumbar radiculopathy M54.16 [facility] [place] [address] [id number] [address] [place] [address] Jul, Back pain M54.9 [facility] [place] [address] [id number] [address] [place] [address] Jun, Vitamin D deficiency E55.9 [facility] [place] [address] [id number] [address] [place] [id number] Jun, Back pain M54.9 [facility] [place] [address] [id number] [address] [place] [id number] May, [facility] [place] [address] [id number] [address] [place] [address] May, [facility] [place] [address] [id number] [address] [place] [address] May, [facility] [place] [address] [id number] [address] [place] [id number] May, Back pain M54.9 [facility] [place] [address] [id number] [address] [place] [address] Apr, Back pain M54.9 ; Hypertensi on I10 ; Arthritis M19.90 and Generalized anxiety disorder F41.1 [facility] [place] [address] [id number] [address] [place] [address] Apr, Back pain M54.9 [facility] [place] [address] [id number] [address] [place] [address] Mar, Back pain M54.9 [facility] [place] [address] [id number] [address] [place] [address] Mar, Vitamin D deficiency E55.9 [facility] [place] [address] [id number] [address] [place] [address] Feb, Vitamin D deficiency E55.9 [facility] [place] [address] [id number] [address] [place] [id number] 14 Feb, 2017 Vitamin D deficiency E55.9 [facility] [place] [address] [id number] [address] [place] [id number] Feb, Back pain M54.9 [facility] [place] [address] [id number] [address] [place] [id number] January, Back pain M54.9 [facility] [place] [address] [facility] [place] [id number] [address] [place] [id number] January, Arthritis M19.90 [facility], [place] [address] [id number] [address] [place] [id number] January, Vitamin D deficiency E55.9 a nd Arthritis M19.90 [facility], [place] [address] [facility] [place] [id number] [address] [place] [id number] Dec, Medicare annual wellness vis it, initial Z00.00 and Encounter for immunization Z23 [facility] [place] [address] [id number] [address] [place] [id number] Dec, Back pain M54.9 [facility] [place] [address] [id number] [address] [place] [id number] Nov, Back pain M54.9 [facility] [place] [address] [facility] [place] [id number] [address] [place] [id number] 24 Oct, 2016 Back pain M54.9 [facility], [place] [address] [facility] [place] [id number] [address] [place] [id number] 14 Oct, 2016 COPD (chronic obstructive pu lmonary disease) J44.9 [facility], [place] [address] [id number] [address] [place] [id number] 14 Oct, 2016 [facility] [place] [address] [facility] [place] [id number] [address] [place] [id number] 02 Oct, 2016 Hypertension I10 ; Back pain M54.9 and Encounter for immunization Z23 [facility] [place] [address] [facility] [place] [id number] [address] [place] [id number] Sep, [facility], [place] [address] [id number] [address] [place] [id number] Sep, Back pain M54.9 [facility] [place] [address] [id number] [address] [place] [id number] Sep, Back pain M54.9 [facility] [place] [address] [id number] [address] [place] [id number] Aug, [facility] [place] [address] [id number] [address] [place] [id number] Aug, Back pain M54.9 [facility] [place] [address] [id number] [address] [place] [id number] Aug, [facility] [place] [address] [id number] [address] [place] [id number] Aug, [facility] [place] [address] [id number] [address] [place] [id number] Aug, Back pain M54.9 [facility] [place] [address] [id number] [address] [place] [id number] Jul, [facility] [place] [address] [id number] [address] [place] [id number] Jul, Back pain M54.9 [facility] [place] [address] [id number] [address] [place] [id number] Jun, Back pain M54.9 ; Hypertensi on I10 ; Generalized anxiety disorder F41.1 and Encounter for immunization Z23 [facility] [place] [address] [id number] [address] [place] [id number] Jun, [facility] [place] [address] [id number] [address] [place] [id number] May, [facility] [place] [address] [id number] [address] [place] [id number] Apr, [facility] [place] [address] [id number] [address] [place] [id number] Apr, [facility] [facility] [place] [address] [id number] [address] [place] [address] Mar, [facility] [place] [address] [id number] [address] [place] [address] Mar, [facility] [place] [address] [id number] [address] [place] [address] Mar, [facility] [place] [address] [id number] [address] [place] [address] Feb, Back pain M54.9 and Hyperten madelyn I10 [facility] [place] [address] [id number] [address] [place] [address] Feb, Back pain M54.9 [facility] [place] [address] [id number] [address] [place] [address] Dec, COPD (chronic obstructive pu lmonary disease) J44.9 [facility] [place] [address] [id number] [address] [place] [address] Dec, [facility] [place] [address] [id number] [address] [place] [address] 18 Dec, 2015 Back pain M54.9 [facility] [place] [address] [id number] [address] [place] [address] 24 Nov, 2015 Back pain M54.9 [facility] [place] [address] [id number] [address] [place] [address] 14 Nov, 2015 COPD (chronic obstructive pu lmonary disease) J44.9 [facility] [place] [address] [id number] [address] [place] [id number] 04 Nov, 2015 Hypertension I10 and Back pa in M54.9 [facility] [place] [address] [id number] [address] [place] [id number] 29 Oct, 2015 Hypertension I10 and Back pa in M54.9 [facility] [place] [address] [id number] [address] [place] [address] Oct, Back pain M54.9 [facility] [place] [address] [id number] [address] [place] [address] Sep, Back pain M54.9 [facility] [place] [address] [id number] [address] [place] [address] Sep, [facility] [place] [address] [id number] [address] [place] [address] Sep, [facility] [place] [address] [id number] [address] [place] [address] Sep, [facility] [place] [address] [id number] [address] [place] [address] Sep, [facility] [place] [address] [id number] [address] [place] [id number] Aug, [facility] [place] [address] [id number] [address] [place] [address] Aug, [facility] [place] [address] [id number] [address] [place] [address] Aug, [facility] [place] [address] [id number] [address] [place] [address] Aug, [facility] [place] [address] [facility] [place] [id number] [address] [place] [address] Aug, [facility] [place] [address] [facility] [place] [id number] [address] [place] [address] Jul, [facility] [place] [address] [facility] [place] [id number] [address] [place] [address] Jul, Back pain M54.9 ; Arthritis M19.90 ; Hypertension I10 and Encounter for immunization Z23 [facility] [place] [address] [id number] [address] [place] [address] Jul, Generalized anxiety disorder F41.1 and Depressive disorder, not elsewhere classified F32.9 [facility] [place] [address] [facility] [place] [id number] [address] [place] [id number] Jul, [facility] [address] [id number] [address] [place] [address] Jul, [facility] [address] [id number] [address] [place] [address] Jul, [facility] [address] [id number] [address] [place] [address] Jun, [facility] [address] [id number] [address] [place] [address] Jun, [facility] [address] [id number] [address] [place] [address] May, [facility] [address] [id number] [address] [place] [address] May, [facility] [address] [id number] [address] [place] [address] May, [facility] [address] [id number] [address] [place] [address] May, [facility] [address] [id number] [address] [place] [address] May, Benign essential hypertensio n 401.1 ; Anxiety state, unspecified 300.00 ; Back pain 724.5 and Arthritis 716.90 [facility] [address] [id number] [address] [place] [id number] May, [facility] [address] [id number] [address] [place] [address] Apr, [facility] [address] [id number] [address] [place] [address] Apr, [facility] [address] [id number] [address] [place] [address] Apr, [facility] [address] [id number] [address] [place] [address] Mar, [facility] [address] [id number] [address] [place] [address] Mar, [facility] [place] [address] [id number] [address] [place] [address] Mar, [facility] [place] [address] [id number] [address] [place] [address] Feb, High risk medication use V58 .69 [facility] [place] [address] [id number] [address] [place] [address] Feb, Benign essential hypertensio n 401.1 ; Anxiety state, unspecified 300.00 and Chronic pain 338.29 [facility] [place] [address] [id number] [address] [place] [address] Feb, [facility] [place] [address] [id number] [address] [place] [address] January, [facility] [place] [address] [id number] [address] [place] [id number] January, [facility] [place] [address] [id number] [address] [place] [address] January, [facility] [place] [address] [id number] [address] [place] [address] January, [facility] [place] [address] [id number] [address] [place] [address] Dec, [facility] [place] [address] [id number] [address] [place] [address] Dec, [facility] [place] [address] [id number] [address] [place] [id number] Nov, [facility] [place] [address] [id number] [address] [place] [id number] Nov, [facility] [place] [address] [id number] [address] [place] [id number] Nov, [facility] [place] [address] [id number] [address] [place] [id number] Nov, [facility] [address] [id number] [address] [place] [address], [place] [address] Oct, [facility] [address] [id number] [address] [place] [address], [place] [address] Oct, [facility] [address] [id number] [address] [place] [address], [place] [address] Oct, [facility] [address] [id number] [address] [place] [address], [place] [address] Oct, [facility] [address] [id number] [address] [place] [address], [place] [address] Oct, [facility] [address] [id number] [address] [place] [address], [place] [address] Sep, [facility] [address] [id number] [address] [place] [address], [place] [address] Sep, [facility] [address] [id number] [address] [place] [address], [place] [address] Sep, [facility] [address] [id number] [address] [place] [address], [place] [address] Sep, [facility] [address] [id number] [address] [place] [address], [place] [address] Aug, [facility] [address] [id number] [address] [place] [address], [place] [address] Aug, [facility] [address] [id number] [address] [place] [address], [place] [address] Aug, [facility] [address] [id number] [address] [place] [address], [place] [address] Aug, [facility] [address] [id number] [address] [place] [address], [place] [address] Aug, [facility] [address] [id number] [address] [place] [address], [place] [address] Aug, [facility] [address] [id number] [address] [place] [address], [place] [address] Jul, [facility] [address] [id number] [address] [place] [address], [place] [address] Jul, [facility] [address] [id number] [address] [place] [address], [place] [address] Jun, [facility] [address] [id number] [address] [place] [address], [place] [address] Jun, [facility] [address] [id number] [address] [place] [address], [place] [address] Jun, [facility] [address] [id number] [address] [place] [address], [place] [address] Jun, [facility] [address] [id number] [address] [place] [address], [place] [address] May, [facility] [address] [id number] [address] [place] [address], [place] [address] May, [facility] [address] [id number] [address] [place] [address], [place] [address] May, [facility] [address] [id number] [address] [place] [address], [place] [address] May, [facility] [address] [id number] [address] [place] [address], [place] [address] Apr, [facility] [address] [id number] [address] [place] [address], [place] [address] Apr, [facility] [address] [id number] [address] [place] [address], [place] [address] Apr, [facility] [address] [id number] [address] [place] [address], [place] [address] Apr, [facility] [address] [id number] [address] [place] [address], [place] [address] Apr, [facility] [address] [id number] [address] [place] [address], [place] [address] Apr, [facility] [address] [id number] [facility] [place] [address] Mar, [facility] [address] [id number] [facility] [place] [address] Mar, [facility] [address] [id number] [facility] [place] [address] Mar, [facility] [address] [id number] [address] [place] [address], [place] [address] Mar, [facility] [address] [id number] [address] [place] [address], [place] [address] Feb, [facility] [address] [id number] [address] [place] [address], [place] [address] Feb, [facility] [address] [id number] [address] [place] [address], [place] [address] Feb, [facility] [address] [id number] [address] [place] [address], [place] [address] January, [facility] [address] [id number] [address] [place] [address], [place] [address] January, [facility] [address] [id number] [address] [place] [address], [place] [address] January, [facility] [address] [id number] [address] [place] [address], [place] [address] January, [facility] [address] [id number] [address] [place] [address], [place] [address] January, [facility] [address] [id number] [address] [place] [address], [place] [address] January, [facility] [address] [id number] [address] [place] [address], [place] [address] January, [facility] [address] [id number] [address] [place] [address], [place] [address] January, [facility] [address] [id number] [address] [place] [address], [place] [address] Dec, [facility] [address] [id number] [facility] [place] [address] Dec, [facility] [address] [id number] [address] [place] [address], [place] [address] Dec, [facility] [address] [id number] [address] [place] [address], [place] [address] Dec, [facility] [address] [id number] [address] [place] [address], [place] [address] Dec, [facility] [address] [id number] [address] [place] [address], [place] [address] Dec, [facility] [address] [id number] [address] [place] [address], [place] [address] Dec, [facility] [address] [id number] [address] [place] [address], [place] [address] Nov, [facility] [address] [id number] [address] [place] [address], [place] [address] Nov, [facility] [address] [id number] [address] [place] [address], [place] [address] Nov, [facility] [address] [id number] [address] [place] [address], [place] [address] Nov, [facility] [address] [id number] [address] [place] [address], [place] [address] 18 Nov, 2013 [facility] [address] [id number] [address] [place] [address], [place] [address] 18 Nov, 2013 [facility] [address] [id number] [address] [place] [address], [place] [address] Nov, [facility] [address] [id number] [address] [place] [address], [place] [address] Nov, [facility] [address] [id number] [address] [place] [address], [place] [address] 07 Nov, 2013 [facility] [address] [id number] [address] [place] [address], [place] [address] 07 Nov, 2013 [facility] [address] [id number] [address] [place] [address], [place] [address] 07 Nov, 2013 [facility] [address] [id number] [address] [place] [address], [place] [address] 07 Nov, 2013 [facility] [address] [id number] [address] [place] [address], [place] [address] 07 Oct, 2013 [facility] [address] [id number] [address] [place] [address], [place] [address] 07 Oct, 2013 [facility] [address] [id number] [address] [place] [address], [place] [address] Sep, [facility] [address] [id number] [address] [place] [address], [place] [address] Sep, [facility] [address] [id number] [address] [place] [address], [place] [address] Sep, [facility] [address] [id number] [address] [place] [address], [place] [address] Sep, [facility] [address] [id number] [address] [place] [address], [place] [address] Aug, [facility] [address] [id number] [address] [place] [address], [place] [address] Aug, [facility] [address] [id number] [address] [place] [address], [place] [address] 15 Jul, 2013 [facility] [address] [id number] [address] [place] [address], [place] [address] 15 Jul, 2013 [facility] [address] [id number] [address] [place] [address], [place] [address] 15 Jul, 2013 [facility] [address] [id number] [address] [place] [address], [place] [address] 15 Jul, 2013 [facility] [address] [id number] [address] [place] [address], [place] [address] Jun, [facility] [address] [id number] [address] [place] [address], [place] [address] 28 Jun, 2013 [facility] [address] [id number] [address] [place] [address], [place] [address] 18 Jun, 2013 [facility] [address] [id number] [address] [place] [address], [place] [address] 18 Jun, 2013 [facility] [address] [id number] [address] [place] [address], [place] [address] 14 Jun, 2013 [facility] [address] [id number] [address] [place] [address], [place] [address] 14 Jun, 2013 [facility] [address] [id number] [address] [place] [address], [place] [address] 20 May, 2013 [facility] [address] [id number] [address] [place] [address], [place] [address] 18 May, 2013 [facility] [address] [id number] [address] [place] [address], [place] [address] 16 May, 2013 [facility] [address] [id number] [address] [place] [address], [place] [address] Apr, [facility] [address] [id number] [address] [place] [address], [place] [address] Apr, [facility] [address] [id number] [address] [place] [address], [place] [address] Apr, [facility] [address] [id number] [address] [place] [address], [place] [address] Mar, [facility] [address] [id number] [address] [place] [address], [place] [address] Mar, [facility] [address] [id number] [address] [place] [address], [place] [address] Feb, [facility] [address] [id number] [address] [place] [address], [place] [address] Feb, [facility] [address] [id number] [address] [place] [address], [place] [address] Feb, [facility] [address] [id number] [address] [place] [address], [place] [address] January, [facility] [address] [id number] [address] [place] [address], [place] [address] January, [facility] [address] [id number] [address] [place] [address], [place] [address] January, [facility] [address] [id number] [address] [place] [address], [place] [id number] 15 Dec, 2012 [facility] [address] [id number] [address] [place] [address], [place] [address] Dec, [facility] [address] [id number] [address] [place] [address], [place] [id number] 08 Dec, 2012 [facility] [address] [id number] [address] [place] [address], [place] [address] Nov, [facility] [address] [id number] [address] [place] [address], [place] [address] 14 Nov, 2012 [facility] [address] [id number] [address] [place] [address], [place] [address] Nov, [facility] [address] [id number] [address] [place] [address], [place] [address] 18 Oct, 2012 [facility] [address] [id number] [address] [place] [address], [place] [address] 14 Oct, 2012 [facility] [address] [id number] [address] [place] [address], [place] [address] Sep, [facility] [address] [id number] [address] [place] [address], [place] [address] Sep, [facility] [address] [id number] [address] [place] [address], [place] [address] Sep, [facility] [address] [id number] [address] [place] [address], [place] [address] Aug, [facility] [address] [id number] [address] [place] [address], [place] [address] Aug, [facility] [address] [id number] [address] [place] [address], [place] [address] Aug, [facility] [address] [id number] [address] [place] [address], [place] [address] Aug, [facility] [address] [id number] [address] [place] [address], [place] [address] Aug, [facility] [address] [id number] [address] [place] [address], [place] [address] Jul, [facility] [address] [id number] [address] [place] [address], [place] [address] Jul, [facility] [address] [id number] [address] [place] [address], [place] [address] Jul, [facility] [address] [id number] [address] [place] [address], [place] [address] Jul, [facility] [address] [id number] [address] [place] [address], [place] [address] Jul, [facility] [address] [id number] [address] [place] [address], [place] [address] Jul, [facility] [address] [id number] [address] [place] [address], [place] [address] Jun, [facility] [address] [id number] [address] [place] [address], [place] [address] Jun, [facility] [address] [id number] [address] [place] [address], [place] [address] Jun, [facility] [address] [id number] [address] [place] [address], [place] [address] Jun, [facility] [address] [id number] [address] [place] [address], [place] [address] May, [facility] [address] [id number] [address] [place] [address], [place] [address] 06 May, 2012 [facility] [address] [id number] [address] [place] [address], [place] [id number] 16 Apr, 2012 [facility] [address] [id number] [address] [place] [address], [place] [id number] 15 Apr, 2012 [facility] [address] [id number] [address] [place] [address], [place] [address] 14 Apr, 2012 [facility] [address] [id number] [address] [place] [address], [place] [id number] 17 Mar, 2012 [facility] [address] [id number] [address] [place] [address], [place] [address] Mar, [facility] [address] [id number] [address] [place] [address], [place] [address] Feb, [facility] [address] [id number] [address] [place] [address], [place] [id number] 24 Jan, 2012 [facility] [address] [id number] [address] [place] [address], [place] [address] January, [facility] [address] [id number] [address] [place] [address], [place] [address] Dec, [facility] [address] [id number] [address] [place] [address], [place] [id number] Dec, [facility] [address] [id number] [address] [place] [address], [place] [address] Dec, [facility] [address] [id number] [address] [place] [address], [place] [id number] 04 Dec, 2011 [facility] [address] [id number] [address] [place] [address], [place] [address] 30 Nov, 2011 [facility] [address] [id number] [address] [place] [address], [place] [address] Nov, [facility] [address] [id number] [address] [place] [address], [place] [address] 15 Nov, 2011 [facility] [address] [id number] [address] [place] [address], [place] [address] Nov, [facility] [address] [id number] [address] [place] [address], [place] [address] 14 Oct, 2011 [facility] [address] [id number] [address] [place] [address], [place] [id number] 09 Oct, 2011 [facility] [address] [id number] [address] [place] [address], [place] [address] Sep, [facility] [address] [id number] [address] [place] [address], [place] [id number] 30 Aug, 2011 [facility] [address] [id number] [address] [place] [address], [place] [address] Aug, [facility] [address] [id number] [address] [place] [address], [place] [address] Aug, [facility] [address] [id number] [address] [place] [address], [place] [address] Jul, [facility] [address] [id number] [address] [place] [address], [place] [address] Jul, [facility] [address] [id number] [address] [place] [address], [place] [address] Jul, [facility] [address] [id number] [address] [place] [address], [place] [address] 20 Jun, 2011 [facility] [address] [id number] [address] [place] [address], [place] [address] 14 Jun, 2011 [facility] [address] [id number] [address] [place] [address], [place] [address] Jun, [facility] [address] [id number] [address] [place] [address], [place] [address] Jun, [facility] [address] [id number] [address] [place] [address], [place] [address] May, [facility] [address] [id number] [address] [place] [address], [place] [address] January, [facility] [place] [address] [id number] [address] [place] [id number] 28 Aug, 2010 [facility] [place] [address] [id number] [address] [place] [id number] Aug, [facility] [place] [address] [id number] [address] [place] [id number] Aug, [facility] [place] [address] [id number] [address] [place] [id number] Aug, [facility] [place] [address] [id number] [address] [place] [id number] Jul, [facility] [place] [address] [id number] [address] [place] [id number] Jul, [facility] [place] [address] [id number] [address] [place] [id number] Jun, [facility] [place] [address] [id number] [address] [place] [id number] Jun, [facility] [place] [address] [id number] [address] [place] [id number] 16 May, 2010 [facility] [place] [address] [id number] [address] [place] [id number] January, IMMUNIZATIONS No Known Immunizations SOCIAL HISTORY [...]
--- OUTSIDE RECORDS SUMMARY | 2020-03-25 20:40 | XMS REPORT ---
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 9 Active 70646036 Problem COPD (chronic obstructive pulmonary disease) J44.9 Active 95304811 Problem Arthritis M19.90 Active 7045007 Problem Skin ulcer of left foot with fat layer exposed L97 .522 Active 71254846 Problem Hypertension I10 Active 1602326 3 Problem Slow transit constipation K59.01 Acti ve 10767747 Problem Back pain M54.9 Active 983997949 Problem Vitamin D deficiency E55.9 Active 56278029 Problem Lumbar radiculopathy M54.16 Active 846131777 Problem Venous insufficiency I87.2 Active 07663411 Problem Basal cell carcinoma (BCC) of skin of right ear C4 4.212 Active [id number] ALLERGIES No Information ENCOUNTERS Encounter Location Date Diagnosis [facility] [address] [facility] [id number] [address] [place] [id number] 16 Feb, 2020 [facility] [address] [facility] [id number] [address] [place] [id number] 09 Feb, 2020 Back pain M54.9 [facility] [address] [facility] [id number] [address] [place] [phone] 08 Feb, 2020 Radiculopathy, lumbar region M54.16 and Lumbar radiculopathy M54.[address] [id number] [address] 04 Feb, 2020 Radiculopathy, lumbar region M54.16 and Lumbar radiculopathy M54.16 [facility] [address] [id number] [address] [place] [id number] January, Slow transit constipation K5 9.01 [facility] [address] [id number] [address] [place] [id number] January, [facility] [address] [id number] [address] [place] [id number] January, Lumbar radiculopathy M54.16 [facility] [address] [id number] [address] [place] [id number] January, Radiculopathy, lumbar region M54.16 and Lumbar radiculopathy M54.16 [facility] [address] [id number] [address] [place] [id number] 24 Dec, [address] [id number] [address] Dec, [facility] [address] [id number] [address] [place] [address] Dec, Radiculopathy, lumbar region M54.[id number] [place] [phone] Dec, Radiculopathy, lumbar region M54.16 [facility] [address] [id number] [address] [place] [id number] 09 Dec, 2019 Lumbar radiculopathy M54.16 [facility] [address] [id number] [address] [place] [id number] Dec, [facility] [address] [id number] [address] [place] [id number] Nov, [facility] [address] [id number] [address] [place] [id number] 18 Nov, 2019 [facility] [address] [id number] [address] [place] [id number] 17 Nov, 2019 Weight loss R63.4 ; Skin ulc er of left foot with fat layer exposed L97.522 ; Basal cell carcinoma (BCC) of skin of right ear C44.212 ; Hypertension I10 and Lumbar radiculopathy M54.16 [facility] [address] [id number] [address] [place] [id number] 11 Nov, 2019 Back pain M54.9 and Radiculo peg, lumbar region M54.16 [facility] [address] [id number] [address] [place] [id number] Oct, Radiculopathy, lumbar region M54.16 [facility] [address] [id number] [address] [place] [id number] 19 Oct, 2019 [facility] [address] [id number] [address] [place] [id number] 11 Oct, 2019 Back pain M54.9 [facility] [address] [id number] [address] [place] [id number] 10 Oct, 2019 [facility] [address] [id number] [address] [place] [id number] 06 Oct, 2019 Skin sore L98.9 [facility] [address] [id number] [address] [place] [id number] 24 Sep, 2019 Radiculopathy, lumbar region M54.16 [facility] [address] [id number] [address] [place] [id number] 15 Sep, 2019 Back pain M54.9 [facility] [address] [id number] [address] [place] [id number] 14 Sep, 2019 Generalized anxiety disorder F41.1 [facility] [address] [id number] [address] [place] [id number] 30 Aug, 2019 Radiculopathy, lumbar region M54.16 [facility] [address] [id number] [address] [place] [id number] Aug, Back pain M54.9 [facility] [address] [id number] [address] [place] [phone] Aug, Lumbar radiculopathy M54.16 ; Generalized anxiety disorder F41.1 and Drug-induced constipation K59.03 [facility] [address] [id number] [address] [place] [id number] Jul, Radiculopathy, lumbar region M54.16 [facility] [address] [id number] [address] [place] [id number] Jul, [facility] [address] [id number] [address] [place] [id number] Jul, [facility] [address] [id number] [address] [place] [id number] Jul, Back pain M54.9 [facility] [address] [id number] [address] [place] [id number] Jul, Radiculopathy, lumbar region M54.16 [facility] [address] [id number] [address] [place] [id number] Jul, Radiculopathy, lumbar region M54.16 [facility] [address] [id number] [address] [place] [id number] Jun, Back pain M54.9 [facility] [address] [id number] [address] [place] [id number] Jun, [facility] [address] [id number] [address] [place] [id number] Jun, Radiculopathy, lumbar region M54.16 [facility] [address] [id number] [address] [place] [id number] Jun, [facility] [address] [id number] [address] [place] [id number] May, Back pain M54.9 [facility] [address] [id number] [address] [place] [address] May, Cellulitis of other specifie d site L03.818 ; Dermatitis L30.9 and Lumbar radiculopathy M54.16 [facility] [address] [id number] [address] [place] [id number] May, [facility] [address] [id number] [address] [place] [id number] May, Back pain M54.9 [facility] [address] [id number] [address] [place] [phone] 05 May, 2019 [facility] [address] [id number] [address] [place] [id number] 04 May, 2019 Back pain M54.9 [facility] [address] [id number] [address] [place] [id number] 14 Apr, 2019 [facility] [address] [facility] [id number] [address] [place] [id number] Apr, Back pain M54.9 [facility] [address] [id number] [address] [place] [id number] Apr, Hyponatremia E87.1 [facility] [address] [facility] [id number] [address] [place] [phone] Apr, Hyponatremia E87.1 [facility] [address] [facility] [id number] [address] [place] [id number] Mar, Arthritis M19.90 ; Impacted cerumen of right ear H61.21 and Hypertension I10 [facility] [address] [id number] [id number] Mar, [facility] [address] [facility] [id number] [address] [place] [id number] Mar, Back pain M54.9 [facility] [address] [id number] [address] [place] [id number] Feb, Back pain M54.9 [facility] [address] [facility] [id number] [address] [place] [phone] Feb, [facility] [address] [id number] [address] [place] [id number] Feb, Dermatitis L30.9 [facility] [address] [id number] [address] [place] [id number] January, Dermatitis L30.9 [facility] [address] [id number] [address] [place] [id number] January, [facility] [address] [id number] [address] [place] [id number] January, Back pain M54.9 [facility] [address] [id number] [address] [place] [id number] Dec, [facility] [address] [id number] [address] [place] [id number] Dec, Back pain M54.9 [facility] [address] [id number] [address] [place] [id number] Dec, Lumbar radiculopathy M54.16 ; Arthritis M19.90 and Dyshydrosis L30.1 [facility] [address] [id number] [address] [place] [address] Nov, Back pain M54.9 [facility] [address] [id number] [address] [place] [id number] Nov, [facility] [address] [id number] [address] [place] [id number] Oct, [facility] [address] [id number] [address] [place] [id number] Oct, Back pain M54.9 [facility] [address] [id number] [address] [place] [id number] Oct, [facility] [address] [id number] [address] [place] [id number] Oct, [facility] [address] [id number] [address] [place] [id number] Sep, Back pain M54.9 [facility] [address] [id number] [address] [place] [id number] Sep, [facility] [address] [id number] [address] [place] [phone] Aug, Back pain M54.9 [facility] [address] [id number] [address] [place] [id number] Aug, Encounter for immunization Z 23 ; Arthritis M19.90 and Generalized anxiety disorder F41.1 [facility] [address] [id number] [address] [place] [id number] Aug, [facility] [address] [id number] [address] [place] [id number] Aug, [facility] [address] [id number] [address] [place] [id number] Jul, Back pain M54.9 [facility] [address] [id number] [address] [place] [id number] Jul, [facility] [address] [id number] [address] [place] [id number] Jul, [facility] [address] [id number] [address] [place] [id number] Jun, Back pain M54.9 [facility] [address] [id number] [address] [place] [id number] Jun, [facility] [address] [id number] [address] [place] [id number] Jun, Back pain M54.9 [facility] [address] [id number] [address] [place] [id number] May, Lumbar radiculopathy M54.16 ; Hypertension I10 and Generalized anxiety disorder F41.1 [facility] [address] [id number] [address] [place] [id number] May, Back pain M54.9 [facility] [address] [id number] [address] [place] [id number] Apr, [facility] [address] [id number] [address] [place] [id number] Apr, [facility] [address] [id number] [address] [place] [id number] Apr, Back pain M54.9 [facility] [address] [id number] [address] [place] [id number] Mar, Back pain M54.9 [facility] [address] [id number] [address] [place] [id number] Feb, [facility] [address] [id number] [address] [place] [id number] Feb, [facility] [address] [id number] [address] [place] [id number] Feb, [facility] [address] [id number] [address] [place] [id number] Feb, Back pain M54.9 [facility] [address] [id number] [address] [place] [id number] Feb, Back pain M54.9 ; Hypertensi on I10 ; Generalized anxiety disorder F41.1 and Venous insufficiency I87.2 [facility] [address] [id number] [address] [place] [id number] January, [facility] [address] [id number] [address] [place] [id number] January, Back pain M54.9 [facility] [address] [id number] [address] [place] [id number] Dec, [facility] [address] [id number] [address] [place] [id number] Dec, Back pain M54.9 [facility] [address] [id number] [address] [place] [id number] Nov, Back pain M54.9 [facility] [address] [id number] [address] [place] [id number] Nov, [facility] [address] [id number] [address] [place] [address] Nov, Lumbar radiculopathy M54.16 ; Hypertension I10 ; Arthritis M19.90 and Back pain M54.9 [facility] [address] [id number] [address] [place] [id number] Oct, Back pain M54.9 [facility] [address] [id number] [address] [place] [id number] Oct, [facility] [address] [id number] [address] [place] [address] Sep, Back pain M54.9 [facility] [address] [id number] [address] [place] [id number] Sep, [facility] [address] [id number] [address] [place] [id number] Aug, Back pain M54.9 [facility] [address] [id number] [address] [place] [id number] Jul, Back pain M54.9 [facility] [address] [facility] [id number] [address] [place] [id number] 09 Jul, 2017 Encounter for immunization Z 23 ; Back pain M54.9 ; Hypertension I10 and Lumbar radiculopathy M54.16 [facility] [address] [id number] [address] [place] [id number] Jul, Back pain M54.9 [facility] [address] [facility] [id number] [address] [place] [id number] Jun, Vitamin D deficiency E55.9 [facility] [address] [id number] [address] [place] [id number] Jun, Back pain M54.9 [facility] [address] [id number] [address] [place] [id number] May, [facility] [address] [id number] [address] [place] [id number] 08 May, 2017 [facility] [address] [id number] [address] [place] [id number] 08 May, 2017 [facility] [address] [id number] [address] [place] [id number] May, Back pain M54.9 [facility] [address] [id number] [address] [place] [address] Apr, Back pain M54.9 ; Hypertensi on I10 ; Arthritis M19.90 and Generalized anxiety disorder F41.1 [facility] [address] [id number] [address] [place] [id number] Apr, Back pain M54.9 [facility] [address] [id number] [address] [place] [id number] Mar, Back pain M54.9 [facility] [address] [id number] [address] [place] [id number] 10 Mar, 2017 Vitamin D deficiency E55.9 [facility] [address] [facility] [id number] [address] [place] [id number] 15 Feb, 2017 Vitamin D deficiency E55.9 [facility] [place] [address] [id number] [address] [place] [id number] 14 Feb, 2017 Vitamin D deficiency E55.9 [facility] [place] [address] [id number] [address] [place] [id number] 13 Feb, 2017 Back pain M54.9 [facility] [place] [address] [id number] [address] [place] [id number] January, Back pain M54.9 [facility] [place] [address] [id number] [address] [place] [id number] January, Arthritis M19.90 [facility] [place] [address] [id number] [address] [place] [id number] January, Vitamin D deficiency E55.9 a nd Arthritis M19.90 [facility] [place] [address] [id number] [address] [place] [id number] Dec, Medicare annual wellness vis it, initial Z00.00 and Encounter for immunization Z23 [facility] [place] [address] [id number] [address] [place] [id number] Dec, Back pain M54.9 [facility] [place] [address] [id number] [address] [place] [id number] Nov, Back pain M54.9 [facility] [place] [address] [id number] [address] [place] [id number] 24 Oct, 2016 Back pain M54.9 [facility] [place] [address] [id number] [address] [place] [id number] 14 Oct, 2016 COPD (chronic obstructive pu lmonary disease) J44.9 [facility] [place] [address] [id number] [address] [place] [id number] Oct, [facility] [place] [address] [facility] [id number] [address] [place] [id number] 02 Oct, 2016 Hypertension I10 ; Back pain M54.9 and Encounter for immunization Z23 [facility] [place] [address] [id number] [address] [place] [id number] Sep, [facility] [place] [address] [id number] [address] [place] [id number] Sep, Back pain M54.9 [facility] [place] [address] [id number] [address] [place] [id number] Sep, Back pain M54.9 [facility] [place] [address] [id number] [address] [place] [id number] Aug, [facility] [place] [address] [id number] [address] [place] [id number] Aug, Back pain M54.9 [facility] [place] [address] [id number] [address] [place] [id number] Aug, [facility] [address] [id number] [address] [place] [id number] Aug, [facility] [place] [address] [id number] [address] [place] [id number] Aug, Back pain M54.9 [facility] [place] [address] [address] [id number] [address] [place] [id number] Jul, [facility] [address] [id number] [address] [place] [id number] Jul, Back pain M54.9 [facility] [address] [id number] [address] [place] [id number] Jun, Back pain M54.9 ; Hypertensi on I10 ; Generalized anxiety disorder F41.1 and Encounter for immunization Z23 [facility] [address] [id number] [address] [place] [id number] Jun, [facility] [address] [id number] [address] [place] [id number] May, [facility] [address] [id number] [address] [place] [id number] Apr, [facility] [address] [id number] [address] [place] [id number] Apr, [facility] [address] [id number] [address] [place] [address] Mar, [facility] [address] [id number] [address] [place] [id number] Mar, [facility] [address] [id number] [address] [place] [id number] Mar, [facility] [address] [id number] [address] [place] [id number] 20 Feb, 2016 Back pain M54.9 and Hyperten madelyn I10 [facility] [address] [id number] [address] [place] [id number] 17 Feb, 2016 Back pain M54.9 [facility] [address] [id number] [address] [place] [id number] Dec, COPD (chronic obstructive pu lmonary disease) J44.9 [facility] [address] [id number] [address] [place] [id number] Dec, [facility] [address] [id number] [address] [place] [id number] 18 Dec, 2015 Back pain M54.9 [facility] [address] [id number] [address] [place] [id number] 24 Nov, 2015 Back pain M54.9 [facility] [address] [id number] [address] [place] [id number] 14 Nov, 2015 COPD (chronic obstructive pu lmonary disease) J44.9 [facility] [address] [id number] [address] [place] [id number] 04 Nov, 2015 Hypertension I10 and Back pa in M54.9 [facility] [address] [id number] [address] [place] [id number] Oct, Hypertension I10 and Back pa in M54.9 [facility] [address] [id number] [address] [place] [id number] Oct, Back pain M54.9 [facility] [address] [id number] [address] [place] [id number] Sep, Back pain M54.9 [facility] [address] [id number] [address] [place] [id number] Sep, [facility] [address] [id number] [address] [place] [id number] Sep, [facility] [address] [id number] [address] [place] [id number] Sep, [facility] [address] [id number] [address] [place] [id number] Sep, [facility] [address] [id number] [address] [place] [id number] Aug, [facility] [address] [id number] [address] [place] [id number] Aug, [facility] [address] [id number] [address] [place] [id number] Aug, [facility] [address] [id number] [address] [place] [id number] Aug, [facility] [place] [address] [facility] [id number] [address] [place] [id number] Aug, [facility] [place] [address] [id number] [address] [place] [id number] Jul, [facility] [address] [id number] [address] [place] [id number] Jul, Back pain M54.9 ; Arthritis M19.90 ; Hypertension I10 and Encounter for immunization Z23 [facility] [address] [facility] [id number] [address] [place] [id number] Jul, Generalized anxiety disorder F41.1 and Depressive disorder, not elsewhere classified F32.9 [facility] [address] [id number] [address] [place] [id number] Jul, [facility] [address] [facility] [id number] [address] [place] [id number] Jul, [facility] [address] [facility] [id number] [address] [place] [id number] Jul, [facility] [address] [facility] [id number] [address] [place] [id number] Jun, [facility] [address] [facility] [id number] [address] [place] [id number] Jun, [facility] [address] [id number] [address] [place] [id number] May, [facility] [address] [id number] [address] [place] [id number] May, [facility] [address] [id number] [address] [place] [id number] May, [facility] [address] [id number] [address] [place] [id number] May, [facility] [address] [id number] [address] [place] [id number] May, Benign essential hypertensio n 401.1 ; Anxiety state, unspecified 300.00 ; Back pain 724.5 and Arthritis 716.90 [facility] [address] [id number] [address] [place] [id number] May, [facility] [place] [address] [id number] [address] [place] [id number] Apr, [facility] [address] [id number] [address] [place] [id number] Apr, [facility] [address] [id number] [address] [place] [id number] Apr, [facility] [address] [id number] [address] [place] [id number] Mar, [facility] [address] [id number] [address] [place] [id number] Mar, [facility] [address] [id number] [address] [place] [id number] Mar, [facility] [place] [address] [id number] [address] [place] [id number] Feb, High risk medication use V58 .69 [facility] [place] [address] [id number] [address] [place] [id number] Feb, Benign essential hypertensio n 401.1 ; Anxiety state, unspecified 300.00 and Chronic pain 338.29 [facility] [address] [id number] [address] [place] [id number] Feb, [facility] [address] [id number] [address] [place] [id number] January, [facility] [address] [id number] [address] [place] [id number] January, [facility] [address] [id number] [address] [place] [id number] January, [facility] [address] [id number] [address] [place] [id number] January, [facility] [address] [id number] [address] [place] [id number] Dec, [facility] [address] [id number] [address] [place] [id number] Dec, [facility] [address] [id number] [address] [place] [id number] Nov, [facility] [address] [id number] [address] [place] [id number] Nov, [facility] [address] [id number] [address] [place] [id number] Nov, [facility] [address] [id number] [address] [place] [id number] Nov, [facility] [address] [id number] [address] [place] [id number] Oct, [facility] [address] [id number] [address] [place] [id number] Oct, [facility] [address] [id number] [address] [place] [id number] Oct, [facility] [address] [id number] [address] [place] [id number] Oct, [facility] [address] [id number] [address] [place] [address], [place] [address] Oct, [facility] [address] [id number] [address] [place] [address], [place] [address] Sep, [facility] [address] [id number] [address] [place] [address], [place] [address] Sep, [facility] [address] [id number] [address] [place] [address], [place] [address] Sep, [facility] [address] [id number] [address] [place] [address], [place] [address] Sep, [facility] [address] [id number] [address] [place] [address], [place] [address] Aug, [facility] [address] [id number] [address] [place] [address], [place] [address] Aug, [facility] [address] [id number] [address] [place] [address], [place] [address] Aug, [facility] [address] [id number] [address] [place] [address], [place] [address] Aug, [facility] [address] [id number] [address] [place] [address], [place] [address] Aug, [facility] [address] [id number] [address] [place] [address], [place] [address] Aug, [facility] [address] [id number] [address] [place] [id number] Jul, [facility] [address] [id number] [address] [place] [address], [place] [address] Jul, [facility] [address] [id number] [address] [place] [address], [place] [address] Jun, [facility] [address] [id number] [address] [place] [address], [place] [address] Jun, [facility] [address] [id number] [address] [place] [address], [place] [address] Jun, [facility] [address] [id number] [address] [place] [address], [place] [address] Jun, [facility] [address] [id number] [address] [place] [address], [place] [address] May, [facility] [address] [id number] [address] [place] [address], [place] [address] May, [facility] [address] [id number] [address] [place] [address], [place] [address] May, [facility] [address] [id number] [address] [place] [address], [place] [address] May, [facility] [address] [id number] [address] [place] [address], [place] [address] Apr, [facility] [address] [id number] [address] [place] [address], [place] [address] Apr, [facility] [address] [id number] [address] [place] [address], [place] [address] Apr, [facility] [address] [id number] [address] [place] [address], [place] [address] Apr, [facility] [address] [id number] [address] [place] [address], [place] [address] Apr, [facility] [address] [id number] [address] [place] [address], [place] [address] Apr, [facility] [address] [id number] [address] [place] [address], [place] [address] Mar, [facility] [address] [id number] [address] [place] [address], [place] [address] Mar, [facility] [address] [id number] [address] [place] [address], [place] [address] Mar, [facility] [address] [id number] [address] [place] [address], [place] [address] Mar, [facility] [address] [id number] [address] [place] [address], [place] [address] Feb, [facility] [address] [id number] [address] [place] [address], [place] [address] Feb, [facility] [address] [id number] [address] [place] [address], [place] [address] Feb, [facility] [address] [id number] [address] [place] [address], [place] [address] January, [facility] [address] [id number] [address] [place] [address], [place] [address] January, [facility] [address] [id number] [address] [place] [address], [place] [address] January, [facility] [address] [id number] [address] [place] [address], [place] [address] January, [facility] [address] [id number] [address] [place] [address], [place] [address] January, [facility] [address] [id number] [address] [place] [address], [place] [address] January, [facility] [address] [id number] [address] [place] [address], [place] [address] January, [facility] [address] [id number] [address] [place] [address], [place] [address] January, [facility] [address] [id number] [address] [place] [address], [place] [address] Dec, [facility] [address] [id number] [address] [place] [address], [place] [address] Dec, [facility] [address] [id number] [address] [place] [address], [place] [address] Dec, [facility] [address] [id number] [address] [place] [address], [place] [address] Dec, [facility] [address] [id number] [address] [place] [address], [place] [address] 07 Dec, 2013 [facility] [address] [id number] [address] [place] [address], [place] [address] Dec, [facility] [address] [id number] [address] [place] [address], [place] [address] Dec, [facility] [address] [id number] [address] [place] [address], [place] [address] Nov, [facility] [address] [id number] [address] [place] [address], [place] [address] Nov, [facility] [address] [id number] [address] [place] [address], [place] [address] Nov, [facility] [address] [id number] [address] [place] [address], [place] [address] Nov, [facility] [address] [id number] [address] [place] [address], [place] [address] Nov, [facility] [address] [id number] [address] [place] [address], [place] [address] Nov, [facility] [address] [id number] [address] [place] [address], [place] [address] Nov, [facility] [address] [id number] [address] [place] [address], [place] [address] Nov, [facility] [address] [id number] [address] [place] [address], [place] [address] Nov, [facility] [address] [id number] [address] [place] [address], [place] [address] Nov, [facility] [address] [id number] [address] [place] [address], [place] [address] Nov, [facility] [address] [id number] [address] [place] [address], [place] [address] 07 Nov, 2013 [facility] [address] [id number] [address] [place] [address], [place] [address] 07 Oct, 2013 [facility] [address] [id number] [address] [place] [address], [place] [address] 07 Oct, 2013 [facility] [address] [id number] [address] [place] [address], [place] [address] Sep, [facility] [address] [id number] [address] [place] [address], [place] [address] Sep, [facility] [address] [id number] [address] [place] [address], [place] [address] Sep, [facility] [address] [id number] [address] [place] [address], [place] [address] Sep, [facility] [address] [id number] [address] [place] [address], [place] [address] Aug, [facility] [address] [id number] [address] [place] [address], [place] [address] Aug, [facility] [address] [id number] [address] [place] [address], [place] [address] 15 Jul, 2013 [facility] [address] [id number] [address] [place] [address], [place] [address] 15 Jul, 2013 [facility] [address] [id number] [address] [place] [address], [place] [address] 15 Jul, 2013 [facility] [address] [id number] [address] [place] [address], [place] [address] 15 Jul, 2013 [facility] [address] [id number] [address] [place] [address], [place] [address] 28 Jun, 2013 [facility] [address] [id number] [address] [place] [address], [place] [address] 28 Jun, 2013 [facility] [address] [id number] [address] [place] [address], [place] [address] 18 Jun, 2013 [facility] [address] [id number] [address] [place] [address], [place] [address] 18 Jun, 2013 [facility] [address] [id number] [address] [place] [address], [place] [address] 14 Jun, 2013 [facility] [address] [id number] [address] [place] [address], [place] [address] 14 Jun, 2013 [facility] [address] [id number] [address] [place] [address], [place] [address] 20 May, 2013 [facility] [address] [id number] [address] [place] [address], [place] [address] 18 May, 2013 [facility] [address] [id number] [address] [place] [address], [place] [address] 16 May, 2013 [facility] [address] [id number] [address] [place] [address], [place] [address] Apr, [facility] [address] [id number] [address] [place] [address], [place] [address] Apr, [facility] [address] [id number] [address] [place] [address], [place] [address] Apr, [facility] [address] [id number] [address] [place] [address], [place] [address] Mar, [facility] [address] [id number] [address] [place] [address], [place] [address] Mar, [facility] [address] [id number] [address] [place] [address], [place] [address] Feb, [facility] [address] [id number] [address] [place] [address], [place] [address] Feb, [facility] [address] [id number] [address] [place] [address], [place] [address] Feb, [facility] [address] [id number] [address] [place] [address], [place] [address] January, [facility] [address] [id number] [address] [place] [address], [place] [address] January, [facility] [address] [id number] [address] [place] [address], [place] [address] January, [facility] [address] [id number] [address] [place] [address], [place] [address] 15 Dec, 2012 [facility] [address] [id number] [address] [place] [address], [place] [address] 11 Dec, 2012 [facility] [address] [id number] [address] [place] [address], [place] [address] 08 Dec, 2012 [facility] [address] [id number] [address] [place] [address], [place] [address] 19 Nov, 2012 [facility] [address] [id number] [address] [place] [address], [place] [address] 14 Nov, 2012 [facility] [address] [id number] [address] [place] [address], [place] [address] 13 Nov, 2012 [facility] [address] [id number] [address] [place] [address], [place] [address] 18 Oct, 2012 [facility] [address] [id number] [address] [place] [address], [place] [address] 14 Oct, 2012 [facility] [address] [id number] [address] [place] [address], [place] [address] 31 Sep, 2012 [facility] [address] [id number] [address] [place] [address], [place] [address] 24 Sep, 2012 [facility] [address] [id number] [address] [place] [address], [place] [address] Sep, [facility] [address] [id number] [address] [place] [address], [place] [address] Aug, [facility] [address] [id number] [address] [place] [address], [place] [address] Aug, [facility] [address] [id number] [address] [place] [address], [place] [address] 17 Aug, 2012 [facility] [address] [id number] [address] [place] [address], [place] [address] Aug, [facility] [address] [id number] [address] [place] [address], [place] [address] Aug, [facility] [address] [id number] [address] [place] [address], [place] [address] Jul, [facility] [address] [id number] [address] [place] [address], [place] [address] Jul, [facility] [address] [id number] [address] [place] [address], [place] [address] Jul, [facility] [address] [id number] [address] [place] [address], [place] [address] Jul, [facility] [address] [id number] [address] [place] [address], [place] [address] Jul, [facility] [address] [id number] [address] [place] [address], [place] [address] Jul, [facility] [address] [address] [id number] [address] [place] [address], [place] [address] Jun, [facility] [address] [id number] [address] [place] [address], [place] [address] Jun, [facility] [address] [id number] [address] [place] [address], [place] [address] Jun, [facility] [address] [id number] [address] [place] [address], [place] [address] Jun, [facility] [address] [id number] [address] [place] [address], [place] [address] May, [facility] [address] [id number] [address] [place] [id number] 06 May, 2012 [facility] [address] [id number] [address] [place] [address], [place] [address] 16 Apr, 2012 [facility] [address] [id number] [address] [place] [address], [place] [address] 15 Apr, 2012 [facility] [address] [id number] [address] [place] [address], [place] [address] 14 Apr, 2012 [facility] [address] [id number] [address] [place] [id number] 17 Mar, 2012 [facility] [address] [id number] [address] [place] [address], [place] [address] Mar, [facility] [address] [id number] [address] [place] [address], [place] [address] Feb, [facility] [address] [id number] [address] [place] [address], [place] [address] January, [facility] [address] [id number] [address] [place] [address], [place] [address] January, [facility] [address] [id number] [address] [place] [address], [place] [address] Dec, [facility] [address] [id number] [address] [place] [address], [place] [address] Dec, [facility] [address] [id number] [address] [place] [address], [place] [address] Dec, [facility] [address] [id number] [address] [place] [address], [place] [address] Dec, [facility] [address] [id number] [address] [place] [address], [place] [address] 30 Nov, 2011 [facility] [address] [id number] [address] [place] [address], [place] [address] 23 Nov, 2011 [facility] [address] [id number] [address] [place] [address], [place] [address] 15 Nov, 2011 [facility] [address] [id number] [address] [place] [address], [place] [address] 02 Nov, 2011 [facility] [address] [id number] [address] [place] [address], [place] [address] 14 Oct, 2011 [facility] [address] [id number] [address] [place] [address], [place] [address] 09 Oct, 2011 [facility] [address] [id number] [address] [place] [address], [place] [address] Sep, [facility] [address] [id number] [address] [place] [address], [place] [address] 30 Aug, 2011 [facility] [address] [id number] [address] [place] [address], [place] [address] 23 Aug, 2011 [facility] [address] [id number] [address] [place] [address], [place] [address] Aug, [facility] [address] [id number] [address] [place] [address], [place] [address] 29 Jul, 2011 [facility] [address] [id number] [address] [place] [address], [place] [address] Jul, [facility] [address] [id number] [address] [place] [address], [place] [address] Jul, [facility] [address] [id number] [address] [place] [address], [place] [address] 20 Jun, 2011 [facility] [address] [id number] [address] [place] [address], [place] [address] 14 Jun, 2011 [facility] [address] [id number] [address] [place] [address], [place] [address] 13 Jun, 2011 [facility] [address] [id number] [address] [place] [address], [place] [address] 13 Jun, 2011 [facility] [address] [id number] [address] [place] [address], [place] [address] 19 May, 2011 [facility] [address] [id number] [address] [place] [address], [place] [address] January, [facility] [address] [id number] [address] [place] [address], [place] [address] 28 Aug, 2010 [facility] [address] [id number] [address] [place] [address], [place] [address] Aug, [facility] [address] [id number] [address] [place] [address], [place] [address] 10 Aug, 2010 [facility] [address] [id number] [address] [place] [address] [address] Aug, [facility] [address] [facility] [id number] [address] [place] [address] Jul, [facility] [address] [facility] [id number] [address] [place] [address] Jul, [facility] [address] [facility] [id number] [address] [place] [id number] 15 Jun, 2010 [facility] [address] [facility] [id number] [address] [place] [address] 15 Jun, 2010 [facility] [address] [facility] [id number] [address] [place] [id number] 16 May, 2010 [facility] [address] [facility] [id number] [address] [place] [address] January, IMMUNIZATIONS No Known Immunizations SOCIAL HISTORY [...]
--- OUTSIDE RECORDS SUMMARY | 2020-03-25 20:40 | XMS REPORT ---
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 9 Active 36134197 Problem COPD (chronic obstructive pulmonary disease) J44.9 Active 29929346 Problem Arthritis M19.90 Active 0133221 Problem Skin ulcer of left foot with fat layer exposed L97 .522 Active 01168139 Problem Hypertension I10 Active 1968016 3 Problem Slow transit constipation K59.01 Acti ve 42346701 Problem Back pain M54.9 Active 074515921 Problem Vitamin D deficiency E55.9 Active 65913352 Problem Lumbar radiculopathy M54.16 Active 557428118 Problem Venous insufficiency I87.2 Active 59357134 Problem Basal cell carcinoma (BCC) of skin of right ear C4 4.212 Active 028317075 ALLERGIES No Information ENCOUNTERS Encounter Location Date Diagnosis [facility] [address] [facility] [id number] [address] [place] [phone] 19 Feb, 2020 Lumbar radiculopathy M54.16 ; Arthritis M19.90 and Slow transit constipation K59.01 [facility] [address] [facility] [id number] [address] [place] [phone] 16 Feb, 2020 [facility] [address] [facility] [id number] [address] [place] [phone] 09 Feb, 2020 Back pain M54.9 [facility] [address] [facility] [id number] [address] [place] [id number] 08 Feb, 2020 Radiculopathy, lumbar region M54.16 and Lumbar radiculopathy M54.[address] 340[id number] [address] 04 Feb, 2020 Radiculopathy, lumbar region M54.16 and Lumbar radiculopathy M54.16 [facility] [address] [id number] [address] [place] [phone] January, Slow transit constipation K5 9.01 [facility] [address] [id number] [address] [place] [phone] January, [facility] [address] [id number] [address] [place] [phone] January, Lumbar radiculopathy M54.16 [facility] [address] [id number] [address] [place] [phone] January, Radiculopathy, lumbar region M54.16 and Lumbar radiculopathy M54.16 [facility] [address] [id number] [address] [place] [phone] 24 Dec, [address] 340[id number] [address] 24 Dec, 2019 [facility] [address] [id number] [address] [place] [phone] 14 Dec, 2019 Radiculopathy, lumbar region M54.[address] 340[id number] [address] 14 Dec, 2019 Radiculopathy, lumbar region M54.16 [facility] [address] [id number] [address] [place] [phone] 09 Dec, 2019 Lumbar radiculopathy M54.16 [facility] [address] [id number] [address] [place] [phone] 02 Dec, 2019 [facility] [address] [id number] [address] [place] [phone] Nov, [facility] [address] [id number] [address] [place] [phone] 18 Nov, 2019 [facility] [address] [id number] [address] [place] [phone] 17 Nov, 2019 Weight loss R63.4 ; Skin ulc er of left foot with fat layer exposed L97.522 ; Basal cell carcinoma (BCC) of skin of right ear C44.212 ; Hypertension I10 and Lumbar radiculopathy M54.16 [facility] [address] [id number] [address] [place] [address] 11 Nov, 2019 Back pain M54.9 and Radiculo peg, lumbar region M54.16 [facility] [address] [id number] [address] [place] [phone] 20 Oct, 2019 Radiculopathy, lumbar region M54.16 [facility] [address] [id number] [address] [place] [id number] 19 Oct, 2019 [facility] [address] [id number] [address] [place] [phone] 11 Oct, 2019 Back pain M54.9 [facility] [address] [id number] [address] [place] [phone] 10 Oct, 2019 [facility] [address] [id number] [address] [place] [phone] 06 Oct, 2019 Skin sore L98.9 [facility] [address] [id number] [address] [place] [phone] 24 Sep, 2019 Radiculopathy, lumbar region M54.16 [facility] [address] [id number] [address] [place] [phone] 15 Sep, 2019 Back pain M54.9 [facility] [address] [facility] [facility] [id number] [address] [place] [phone] 14 Sep, 2019 Generalized anxiety disorder F41.1 [facility] [address] [id number] [address] [place] [phone] Aug, Radiculopathy, lumbar region M54.16 [facility] [address] [id number] [address] [place] [phone] Aug, Back pain M54.9 [facility] [address] [id number] [address] [place] [id number] Aug, Lumbar radiculopathy M54.16 ; Generalized anxiety disorder F41.1 and Drug-induced constipation K59.03 [facility] [address] [id number] [address] [place] [address] Jul, Radiculopathy, lumbar region M54.16 [facility] [address] [id number] [address] [place] [phone] Jul, [facility] [address] [id number] [address] [place] [phone] Jul, [facility] [address] [id number] [address] [place] [phone] Jul, Back pain M54.9 [facility] [address] [id number] [address] [place] [phone] Jul, Radiculopathy, lumbar region M54.16 [facility] [address] [id number] [address] [place] [phone] Jul, Radiculopathy, lumbar region M54.16 [facility] [address] [id number] [address] [place] [phone] Jun, Back pain M54.9 [facility] [address] [id number] [address] [place] [phone] Jun, [facility] [address] [id number] [address] [place] [phone] Jun, Radiculopathy, lumbar region M54.16 [facility] [address] [id number] [address] [place] [phone] Jun, [facility] [address] [id number] [address] [place] [id number] 30 May, 2019 Back pain M54.9 [facility] [address] [facility] [facility] [id number] [address] [place] [phone] May, Cellulitis of other specifie d site L03.818 ; Dermatitis L30.9 and Lumbar radiculopathy M54.16 [facility] [address] [id number] [address] [place] [phone] May, [facility] [address] [id number] [address] [place] [phone] May, Back pain M54.9 [facility] [address] [id number] [address] [place] [phone] 05 May, 2019 [facility] [address] [id number] [address] [place] [phone] May, Back pain M54.9 [facility] [address] [id number] [address] [place] [phone] Apr, [facility] [address] [id number] [address] [place] [phone] Apr, Back pain M54.9 [facility] [address] [id number] [address] [place] [id number] Apr, Hyponatremia E87.1 [facility] [address] [facility] [facility] [id number] [address] [place] [phone] Apr, Hyponatremia E87.1 [facility] [address] [id number] [address] [place] [phone] Mar, Arthritis M19.90 ; Impacted cerumen of right ear H61.21 and Hypertension I10 [facility] [address] [id number] [place] [id number] Mar, [facility] [address] [facility] [id number] [address] [place] [id number] Mar, Back pain M54.9 [facility] [address] [id number] [address] [place] [phone] Feb, Back pain M54.9 [facility] [address] [id number] [address] [place] [phone] Feb, [facility] [address] [id number] [address] [place] [phone] Feb, Dermatitis L30.9 [facility] [address] [id number] [address] [place] [phone] January, Dermatitis L30.9 [facility] [address] [id number] [address] [place] [phone] January, [facility] [address] [id number] [address] [place] [id number] January, Back pain M54.9 [facility] [address] [id number] [address] [place] [phone] Dec, [facility] [address] [id number] [address] [place] [phone] Dec, Back pain M54.9 [facility] [address] [id number] [address] [place] [id number] Dec, Lumbar radiculopathy M54.16 ; Arthritis M19.90 and Dyshydrosis L30.1 [facility] [address] [id number] [address] [place] [phone] Nov, Back pain M54.9 [facility] [address] [id number] [address] [place] [phone] Nov, [facility] [address] [id number] [address] [place] [phone] Oct, [facility] [address] [id number] [address] [place] [phone] Oct, Back pain M54.9 [facility] [address] [id number] [address] [place] [id number] 14 Oct, 2018 [facility] [address] [id number] [address] [place] [phone] Oct, [facility] [address] [id number] [address] [place] [phone] Sep, Back pain M54.9 [facility] [address] [id number] [address] [place] [phone] Sep, [facility] [address] [id number] [address] [place] [phone] Aug, Back pain M54.9 [facility] [address] [id number] [address] [place] [phone] Aug, Encounter for immunization Z 23 ; Arthritis M19.90 and Generalized anxiety disorder F41.1 [facility] [address] [id number] [address] [place] [phone] Aug, [facility] [address] [id number] [address] [place] [phone] Aug, [facility] [address] [id number] [address] [place] [phone] Jul, Back pain M54.9 [facility] [address] [id number] [address] [place] [phone] Jul, [facility] [address] [id number] [address] [place] [phone] Jul, [facility] [address] [id number] [address] [place] [phone] Jun, Back pain M54.9 [facility] [address] [id number] [address] [place] [phone] Jun, [facility] [address] [id number] [address] [place] [phone] Jun, Back pain M54.9 [facility] [address] [id number] [address] [place] [phone] 11 May, 2018 Lumbar radiculopathy M54.16 ; Hypertension I10 and Generalized anxiety disorder F41.1 [facility] [address] [id number] [address] [place] [id number] 06 May, 2018 Back pain M54.9 [facility] [address] [id number] [address] [place] [phone] Apr, [facility] [address] [id number] [address] [place] [phone] Apr, [facility] [address] [id number] [address] [place] [phone] Apr, Back pain M54.9 [facility] [address] [id number] [address] [place] [phone] Mar, Back pain M54.9 [facility] [address] [id number] [address] [place] [phone] Feb, [facility] [address] [id number] [address] [place] [phone] Feb, [facility] [address] [id number] [address] [place] [phone] Feb, [facility] [address] [id number] [address] [place] [phone] Feb, Back pain M54.9 [facility] [address] [id number] [address] [place] [phone] Feb, Back pain M54.9 ; Hypertensi on I10 ; Generalized anxiety disorder F41.1 and Venous insufficiency I87.2 [facility] [address] [id number] [address] [place] [phone] January, [facility] [address] [id number] [address] [place] [phone] January, Back pain M54.9 [facility] [address] [id number] [address] [place] [phone] Dec, [facility] [address] [id number] [address] [place] [phone] Dec, Back pain M54.9 [facility] [address] [id number] [address] [place] [phone] Nov, Back pain M54.9 [facility] [address] [id number] [address] [place] [phone] Nov, [facility] [address] [id number] [address] [place] [address] Nov, Lumbar radiculopathy M54.16 ; Hypertension I10 ; Arthritis M19.90 and Back pain M54.9 [facility] [address] [id number] [address] [place] [phone] Oct, Back pain M54.9 [facility] [address] [id number] [address] [place] [phone] Oct, [facility] [address] [id number] [address] [place] [phone] Sep, Back pain M54.9 [facility] [address] [id number] [address] [place] [phone] Sep, [facility] [address] [id number] [address] [place] [phone] Aug, Back pain M54.9 [facility] [address] [id number] [address] [place] [phone] Jul, Back pain M54.9 [facility] [address] [id number] [address] [place] [phone] Jul, Encounter for immunization Z 23 ; Back pain M54.9 ; Hypertension I10 and Lumbar radiculopathy M54.16 [facility] [address] [id number] [address] [place] [phone] Jul, Back pain M54.9 [facility] [address] [id number] [address] [place] [phone] 18 Jun, 2017 Vitamin D deficiency E55.9 [facility] [address] [id number] [address] [place] [id number] 04 Jun, 2017 Back pain M54.9 [facility] [address] [id number] [address] [place] [phone] 20 May, 2017 [facility] [address] [id number] [address] [place] [phone] 08 May, 2017 [facility] [address] [id number] [address] [place] [phone] 08 May, 2017 [facility] [address] [id number] [address] [place] [phone] May, Back pain M54.9 [facility] [address] [id number] [address] [place] [phone] Apr, Back pain M54.9 ; Hypertensi on I10 ; Arthritis M19.90 and Generalized anxiety disorder F41.1 [facility] [address] [id number] [address] [place] [id number] Apr, Back pain M54.9 [facility] [address] [id number] [address] [place] [id number] 12 Mar, 2017 Back pain M54.9 [facility] [address] [facility] [facility] [id number] [address] [place] [phone] 10 Mar, 2017 Vitamin D deficiency E55.9 [facility] [address] [id number] [address] [place] [phone] 15 Feb, 2017 Vitamin D deficiency E55.9 [facility] [address] [id number] [address] [place] [id number] 14 Feb, 2017 Vitamin D deficiency E55.9 [facility] [address] [facility] [facility] [id number] [address] [place] [phone] 13 Feb, 2017 Back pain M54.9 [facility] [address] [facility] [id number] [address] [place] [phone] January, Back pain M54.9 [facility] [address] [facility] [id number] [address] [place] [phone] January, Arthritis M19.90 [facility] [address] [facility] [id number] [address] [place] [phone] January, Vitamin D deficiency E55.9 a nd Arthritis M19.90 [facility] [address] [facility] [facility] [id number] [address] [place] [id number] Dec, Medicare annual wellness vis it, initial Z00.00 and Encounter for immunization Z23 [facility] [address] [facility] [id number] [address] [place] [phone] Dec, Back pain M54.9 [facility] [address] [facility] [id number] [address] [place] [id number] Nov, Back pain M54.9 [facility] [address] [facility] [id number] [address] [place] [id number] 24 Oct, 2016 Back pain M54.9 [facility] [address] [facility] [id number] [address] [place] [id number] 14 Oct, 2016 COPD (chronic obstructive pu lmonary disease) J44.9 [facility] [address] [facility] [id number] [address] [place] [id number] 14 Oct, 2016 [facility] [address] [facility] [id number] [address] [place] [id number] 02 Oct, 2016 Hypertension I10 ; Back pain M54.9 and Encounter for immunization Z23 [facility] [address] [facility] [id number] [address] [place] [phone] Sep, [facility] [address] [facility] [id number] [address] [place] [phone] Sep, Back pain M54.9 [facility] [address] [facility] [id number] [address] [place] [phone] Sep, Back pain M54.9 [facility] [address] [id number] [address] [place] [address], [place] [address] Aug, [facility] [address] [id number] [address] [place] [phone] Aug, Back pain M54.9 [facility] [address] [id number] [address] [place] [phone] Aug, [facility] [address] [id number] [address] [place] [phone] Aug, [facility] [address] [id number] [address] [place] [id number] Aug, Back pain M54.9 [facility] [address] [id number] [address] [place] [id number] Jul, [facility] [address] [id number] [address] [place] [id number] Jul, Back pain M54.9 [facility] [address] [id number] [address] [place] [phone] Jun, Back pain M54.9 ; Hypertensi on I10 ; Generalized anxiety disorder F41.1 and Encounter for immunization Z23 [facility] [address] [id number] [address] [place] [phone] Jun, [facility] [address] [id number] [address] [place] [phone] May, [facility] [address] [id number] [address] [place] [phone] Apr, [facility] [address] [id number] [address] [place] [phone] Apr, [facility] [address] [id number] [address] [place] [phone] Mar, [facility] [address] [id number] [address] [place] [phone] 15 Mar, 2016 [facility] [address] [id number] [address] [place] [phone] 15 Mar, 2016 [facility] [address] [id number] [address] [place] [phone] Feb, Back pain M54.9 and Hyperten madelyn I10 [facility] [address] [id number] [address] [place] [phone] Feb, Back pain M54.9 [facility] [address] [id number] [address] [place] [phone] Dec, COPD (chronic obstructive pu lmonary disease) J44.9 [facility] [address] [id number] [address] [place] [phone] Dec, [facility] [address] [id number] [address] [place] [phone] Dec, Back pain M54.9 [facility] [address] [id number] [address] [place] [phone] Nov, Back pain M54.9 [facility] [address] [id number] [address] [place] [phone] Nov, COPD (chronic obstructive pu lmonary disease) J44.9 [facility] [address] [id number] [address] [place] [phone] Nov, Hypertension I10 and Back pa in M54.9 [facility] [address] [id number] [address] [place] [phone] Oct, Hypertension I10 and Back pa in M54.9 [facility] [address] [id number] [address] [place] [phone] Oct, Back pain M54.9 [facility] [address] [id number] [address] [place] [phone] Sep, Back pain M54.9 [facility] [address] [id number] [address] [place] [phone] Sep, [facility] [address] [id number] [address] [place] [phone] Sep, [facility] [address] [id number] [address] [place] [phone] Sep, [facility] [address] [id number] [address] [place] [phone] Sep, [facility] [address] [id number] [address] [place] [phone] Aug, [facility] [address] [id number] [address] [place] [phone] Aug, [facility] [address] [id number] [address] [place] [phone] Aug, [facility] [address] [facility] [id number] [address] [place] [phone] Aug, [facility] [address] [facility] [id number] [address] [place] [phone] Aug, [facility] [address] [facility] [id number] [address] [place] [phone] Jul, [facility] [address] [facility] [id number] [address] [place] [phone] Jul, Back pain M54.9 ; Arthritis M19.90 ; Hypertension I10 and Encounter for immunization Z23 [facility] [address] [id number] [address] [place] [id number] Jul, Generalized anxiety disorder F41.1 and Depressive disorder, not elsewhere classified F32.9 [facility] [address] [id number] [address] [place] [id number] Jul, [facility] [address] [id number] [address] [place] [address] Jul, [facility] [address] [id number] [address] [place] [address] Jul, [facility] [address] [id number] [address] [place] [id number] Jun, [facility] [address] [id number] [address] [place] [address] Jun, [facility] [address] [id number] [address] [place] [address] May, [facility] [address] [id number] [address] [place] [address] May, [facility] [address] [id number] [address] [place] [address] May, [facility] [address] [id number] [address] [place] [id number] May, [facility] [address] [id number] [address] [place] [address] May, Benign essential hypertensio n 401.1 ; Anxiety state, unspecified 300.00 ; Back pain 724.5 and Arthritis 716.90 [facility] [address] [id number] [address] [place] [address] May, [facility] [address] [id number] [address] [place] [address] Apr, [facility] [address] [id number] [address] [place] [address] Apr, [facility] [address] [id number] [address] [place] [address] Apr, [facility] [address] [id number] [address] [place] [address] Mar, [facility] [address] [id number] [address] [place] [address] Mar, [facility] [address] [id number] [address] [place] [address] Mar, [facility] [address] [id number] [address] [place] [address] Feb, High risk medication use V58 .69 [facility] [address] [id number] [address] [place] [id number] 15 Feb, 2015 Benign essential hypertensio n 401.1 ; Anxiety state, unspecified 300.00 and Chronic pain 338.29 [facility] [address] [id number] [address] [place] [address] Feb, [facility] [address] [id number] [address] [place] [address] January, [facility] [address] [id number] [address] [place] [address] January, [facility] [address] [id number] [address] [place] [phone] January, [facility] [address] [id number] [address] [place] [id number] January, [facility] [address] [id number] [address] [place] [address] Dec, [facility] [address] [id number] [address] [place] [address] Dec, [facility] [address] [id number] [address] [place] [phone] Nov, [facility] [address] [id number] [address] [place] [address] Nov, [facility] [address] [id number] [address] [place] [id number] Nov, [facility] [address] [id number] [address] [place] [address] Nov, [facility] [address] [id number] [address] [place] [phone] Oct, [facility] [address] [id number] [address] [place] [address] Oct, [facility] [address] [id number] [address] [place] [address], [place] [address] Oct, [facility] [address] [id number] [address] [place] [address], [place] [address] Oct, [facility] [address] [id number] [address] [place] [address], [place] [address] Oct, [facility] [address] [id number] [address] [place] [address], [place] [address] Sep, [facility] [address] [id number] [address] [place] [address], [place] [address] Sep, [facility] [address] [id number] [address] [place] [address], [place] [address] Sep, [facility] [address] [id number] [address] [place] [address], [place] [address] Sep, [facility] [address] [id number] [address] [place] [address], [place] [address] Aug, [facility] [address] [id number] [address] [place] [address], [place] [address] Aug, [facility] [address] [id number] [address] [place] [address], [place] [address] Aug, [facility] [address] [id number] [address] [place] [address], [place] [address] Aug, [facility] [address] [id number] [address] [place] [address], [place] [address] Aug, [facility] [address] [id number] [address] [place] [address], [place] [address] Aug, [facility] [address] [id number] [address] [place] [address], [place] [address] Jul, [facility] [address] [id number] [address] [place] [address], [place] [address] Jul, [facility] [address] [id number] [address] [place] [address], [place] [address] Jun, [facility] [address] [id number] [address] [place] [address], [place] [address] Jun, [facility] [address] [id number] [address] [place] [address], [place] [address] Jun, [facility] [address] [id number] [address] [place] [address], [place] [address] Jun, [facility] [address] [id number] [address] [place] [address], [place] [address] May, [facility] [address] [id number] [address] [place] [address], [place] [address] May, [facility] [address] [id number] [address] [place] [address], [place] [address] May, [facility] [address] [id number] [address] [place] [address], [place] [address] May, [facility] [address] [id number] [address] [place] [address], [place] [address] Apr, [facility] [address] [id number] [address] [place] [address], [place] [address] Apr, [facility] [address] [id number] [address] [place] [address], [place] [address] Apr, [facility] [address] [id number] [address] [place] [address], [place] [address] Apr, [facility] [address] [id number] [address] [place] [address], [place] [address] Apr, [facility] [address] [id number] [address] [place] [address], [place] [address] Apr, [facility] [address] [id number] [address] [place] [address], [place] [address] Mar, [facility] [address] [id number] [address] [place] [address], [place] [address] Mar, [facility] [address] [id number] [address] [place] [address], [place] [address] Mar, [facility] [address] [id number] [address] [place] [address], [place] [address] Mar, [facility] [address] [id number] [address] [place] [address], [place] [address] Feb, [facility] [address] [id number] [address] [place] [address], [place] [address] Feb, [facility] [address] [id number] [address] [place] [address], [place] [address] Feb, [facility] [address] [id number] [address] [place] [address], [place] [address] January, [facility] [address] [id number] [address] [place] [address], [place] [address] January, [facility] [address] [id number] [address] [place] [address], [place] [address] January, [facility] [address] [id number] [address] [place] [address], [place] [address] January, [facility] [address] [id number] [address] [place] [address], [place] [address] January, [facility] [address] [id number] [address] [place] [address], [place] [address] January, [facility] [address] [id number] [address] [place] [address], [place] [address] January, [facility] [address] [id number] [address] [place] [address], [place] [address] January, [facility] [address] [id number] [address] [place] [address], [place] [address] Dec, [facility] [address] [id number] [address] [place] [address], [place] [address] Dec, [facility] [address] [id number] [address] [place] [address], [place] [address] Dec, [facility] [address] [id number] [facility] [address] Dec, [facility] [address] [id number] [address] [place] [address], [place] [address] Dec, [facility] [address] [id number] [address] [place] [address], [place] [address] Dec, [facility] [address] [id number] [address] [place] [address], [place] [address] Dec, [facility] [address] [id number] [address] [place] [address], [place] [address] Nov, [facility] [address] [id number] [address] [place] [address], [place] [address] Nov, [facility] [address] [id number] [address] [place] [address], [place] [address] Nov, [facility] [address] [id number] [address] [place] [address], [place] [address] Nov, [facility] [address] [id number] [address] [place] [address], [place] [address] Nov, [facility] [address] [id number] [address] [place] [address], [place] [address] Nov, [facility] [address] [id number] [address] [place] [address], [place] [address] Nov, [facility] [address] [id number] [address] [place] [address], [place] [address] Nov, [facility] [address] [id number] [address] [place] [address], [place] [address] Nov, [facility] [address] [id number] [address] [place] [address], [place] [address] Nov, [facility] [address] [id number] [address] [place] [address], [place] [address] Nov, [facility] [address] [id number] [address] [place] [address], [place] [address] 07 Nov, 2013 [facility] [address] [id number] [address] [place] [address], [place] [address] 07 Oct, 2013 [facility] [address] [id number] [address] [place] [address], [place] [address] 07 Oct, 2013 [facility] [address] [id number] [address] [place] [address], [place] [address] Sep, [facility] [address] [id number] [address] [place] [address], [place] [address] Sep, [facility] [address] [id number] [address] [place] [address], [place] [address] Sep, [facility] [address] [id number] [address] [place] [address], [place] [address] Sep, [facility] [address] [id number] [address] [place] [address], [place] [address] Aug, [facility] [address] [id number] [address] [place] [address], [place] [address] Aug, [facility] [address] [id number] [address] [place] [address], [place] [address] 15 Jul, 2013 [facility] [address] [id number] [address] [place] [address], [place] [address] 15 Jul, 2013 [facility] [address] [id number] [address] [place] [address], [place] [address] 15 Jul, 2013 [facility] [address] [id number] [address] [place] [address], [place] [address] 15 Jul, 2013 [facility] [address] [id number] [address] [place] [address], [place] [address] Jun, [facility] [address] [id number] [address] [place] [address], [place] [address] Jun, [facility] [address] [id number] [address] [place] [address], [place] [address] 18 Jun, 2013 [facility] [address] [id number] [address] [place] [address], [place] [address] 18 Jun, 2013 [facility] [address] [id number] [address] [place] [address], [place] [address] 14 Jun, 2013 [facility] [address] [id number] [address] [place] [address], [place] [address] 14 Jun, 2013 [facility] [address] [id number] [address] [place] [address], [place] [address] May, [facility] [address] [id number] [address] [place] [address], [place] [address] May, [facility] [address] [id number] [address] [place] [address], [place] [address] May, [facility] [address] [id number] [address] [place] [address], [place] [address] Apr, [facility] [address] [id number] [address] [place] [address], [place] [address] Apr, [facility] [address] [id number] [address] [place] [address], [place] [address] Apr, [facility] [address] [id number] [address] [place] [address], [place] [address] Mar, [facility] [address] [id number] [address] [place] [address], [place] [address] Mar, [facility] [address] [id number] [address] [place] [address], [place] [address] Feb, [facility] [address] [id number] [address] [place] [address], [place] [address] Feb, [facility] [address] [id number] [address] [place] [address], [place] [address] Feb, [facility] [address] [id number] [address] [place] [address], [place] [address] January, [facility] [address] [id number] [address] [place] [address], [place] [address] January, [facility] [address] [id number] [address] [place] [address], [place] [address] January, [facility] [address] [id number] [address] [place] [address], [place] [address] 15 Dec, 2012 [facility] [address] [id number] [address] [place] [address], [place] [address] Dec, [facility] [address] [id number] [address] [place] [address], [place] [address] 08 Dec, 2012 [facility] [address] [id number] [address] [place] [address], [place] [address] 19 Nov, 2012 [facility] [address] [id number] [address] [place] [address], [place] [address] 14 Nov, 2012 [facility] [address] [id number] [address] [place] [address], [place] [address] Nov, [facility] [address] [id number] [address] [place] [address], [place] [address] 18 Oct, 2012 [facility] [address] [id number] [address] [place] [address], [place] [address] 14 Oct, 2012 [facility] [address] [id number] [address] [place] [address], [place] [address] Sep, [facility] [address] [id number] [address] [place] [address], [place] [address] Sep, [facility] [address] [id number] [address] [place] [address], [place] [address] Sep, [facility] [address] [id number] [address] [place] [address], [place] [address] Aug, [facility] [address] [id number] [address] [place] [address], [place] [address] Aug, [facility] [address] [id number] [address] [place] [address], [place] [address] Aug, [facility] [address] [id number] [address] [place] [address], [place] [address] Aug, [facility] [address] [id number] [address] [place] [address], [place] [address] Aug, [facility] [address] [id number] [address] [place] [address], [place] [address] Jul, [facility] [address] [id number] [address] [place] [address], [place] [address] Jul, [facility] [address] [id number] [address] [place] [address], [place] [address] Jul, [facility] [address] [id number] [address] [place] [address], [place] [address] Jul, [facility] [address] [id number] [address] [place] [address], [place] [address] Jul, [facility] [address] [id number] [address] [place] [address], [place] [address] Jul, [facility] [address] [id number] [address] [place] [address], [place] [address] Jun, [facility] [address] [id number] [address] [place] [address], [place] [address] Jun, [facility] [address] [id number] [address] [place] [address], [place] [address] Jun, [facility] [address] [id number] [address] [place] [address], [place] [address] Jun, [facility] [address] [id number] [address] [place] [address], [place] [address] May, [facility] [address] [id number] [address] [place] [address], [place] [address] 06 May, 2012 [facility] [address] [id number] [address] [place] [address], [place] [address] Apr, [facility] [address] [id number] [address] [place] [address], [place] [address] Apr, [facility] [address] [id number] [address] [place] [address], [place] [address] 14 Apr, 2012 [facility] [address] [id number] [address] [place] [address], [place] [address] 17 Mar, 2012 [facility] [address] [id number] [address] [place] [address], [place] [address] Mar, [facility] [address] [id number] [address] [place] [address], [place] [address] Feb, [facility] [address] [id number] [address] [place] [address], [place] [address] January, [facility] [address] [id number] [address] [place] [address], [place] [address] January, [facility] [address] [id number] [address] [place] [address], [place] [address] Dec, [facility] [address] [id number] [address] [place] [address], [place] [address] Dec, [facility] [address] [id number] [address] [place] [address], [place] [address] 05 Dec, 2011 [facility] [address] [id number] [address] [place] [address], [place] [address] 04 Dec, 2011 [facility] [address] [id number] [address] [place] [address], [place] [address] Nov, [facility] [address] [id number] [address] [place] [address], [place] [address] Nov, [facility] [address] [id number] [address] [place] [address], [place] [address] 15 Nov, 2011 [facility] [address] [id number] [address] [place] [address], [place] [address] Nov, [facility] [address] [id number] [address] [place] [address], [place] [address] 14 Oct, 2011 [facility] [address] [id number] [address] [place] [address], [place] [address] 09 Oct, 2011 [facility] [address] [id number] [address] [place] [address], [place] [address] 13 Sep, 2011 [facility] [address] [id number] [address] [place] [address], [place] [address] 30 Aug, 2011 [facility] [address] [id number] [address] [place] [address], [place] [address] Aug, [facility] [address] [id number] [address] [place] [address], [place] [address] Aug, [facility] [address] [id number] [address] [place] [address], [place] [address] 29 Jul, 2011 [facility] [address] [id number] [address] [place] [address], [place] [address] Jul, [facility] [address] [id number] [address] [place] [address], [place] [address] Jul, [facility] [address] [id number] [address] [place] [address], [place] [address] 20 Jun, 2011 [facility] [address] [id number] [address] [place] [address], [place] [address] 14 Jun, 2011 [facility] [address] [id number] [address] [place] [address], [place] [address] 13 Jun, 2011 [facility] [address] [id number] [address] [place] [address], [place] [address] 13 Jun, 2011 [facility] [address] [id number] [address] [place] [address], [place] [address] 19 May, 2011 [facility] [address] [id number] [address] [place] [address], [place] [address] January, [facility] [address] [id number] [address] [place] [address], [place] [address] Aug, [facility] [address] [id number] [address] [place] [address], [place] [address] Aug, [facility] [address] [id number] [address] [place] [address] Aug, [facility] [address] [id number] [address] [place] [address] Aug, [facility] [address] [id number] [address] [place] [address] Jul, [facility] [address] [id number] [address] [place] [address] Jul, [facility] [address] [id number] [address] [place] [address] Jun, [facility] [address] [id number] [address] [place] [address] Jun, [facility] [address] [id number] [address] [place] [address] May, [facility] [address] [id number] [address] [place] [address] January, IMMUNIZATIONS No Known Immunizations SOCIAL HISTORY Never Assessed REASON FOR VISIT PLAN OF CARE VITAL SIGNS MEDICATIONS No Known Medications RESULTS No Results PROCEDURES No Known [...]
--- OUTSIDE RECORDS SUMMARY | 2020-03-25 20:40 | XMS REPORT ---
Author Author Cami GLEZ Organization [facility] Address [address] [place] [address] Care Team Providers Care Motorized Squad Commanding Officer Name Role Phone DON GLEZ Unavailable PROBLEMS Type Condition ICD9-CM Code IRD35-FI Code Onset Dates Condition S tatus SNOMED Code Problem Generalized anxiety disorder F41.1 A ctive 37614544 Problem Depressive disorder, not elsewhere classified F32. 9 Active 57959976 Problem COPD (chronic obstructive pulmonary disease) J44.9 Active 12648874 Problem Arthritis M19.90 Active 6699183 Problem Skin ulcer of left foot with fat layer exposed L97 .522 Active 55932758 Problem Hypertension I10 Active 2309146 3 Problem Slow transit constipation K59.01 Acti ve 26627860 Problem Back pain M54.9 Active 895639198 Problem Vitamin D deficiency E55.9 Active 09321028 Problem Lumbar radiculopathy M54.16 Active 633521742 Problem Venous insufficiency I87.2 Active 84898621 Problem Basal cell carcinoma (BCC) of skin of right ear C4 4.212 Active 522834906 ALLERGIES No Information ENCOUNTERS Encounter Location Date Diagnosis [facility] [address] [facility] [id number] [address] [place] [phone] 16 Feb, 2020 [facility] [address] [facility] [id number] [address] [place] [phone] January, Slow transit constipation K5 9.01 [facility] [address] [facility] [id number] [address] [place] [address] January, [facility] [address] [facility] [id number] [address] [place] [phone] 11 Jan, 2020 Lumbar radiculopathy M54.16 [facility] [address] [facility] [id number] [address] [place] [address] 08 Jan, 2020 Radiculopathy, lumbar region M54.16 and Lumbar radiculopathy M54.16 [facility] [address] [id number] [address] [place] [address] 24 Dec, [address] [id number] [place] [address] 24 Dec, 2019 [facility] [address] [id number] [address] [place] [address] Dec, Radiculopathy, lumbar region M54.[address] [id number] [place] [address] 14 Dec, 2019 Radiculopathy, lumbar region M54.16 [facility] [address] [id number] [address] [place] [phone] 09 Dec, 2019 Lumbar radiculopathy M54.16 [facility] [address] [id number] [address] [place] [address] Dec, [facility] [address] [id number] [address] [place] [phone] Nov, [facility] [address] [id number] [address] [place] [address] Nov, [facility] [address] [id number] [address] [place] [address] Nov, Weight loss R63.4 ; Skin ulc er of left foot with fat layer exposed L97.522 ; Basal cell carcinoma (BCC) of skin of right ear C44.212 ; Hypertension I10 and Lumbar radiculopathy M54.16 [facility] [address] [id number] [address] [place] [address] 11 Nov, 2019 Back pain M54.9 and Radiculo peg, lumbar region M54.16 [facility] [address] [id number] [address] [place] [address] Oct, Radiculopathy, lumbar region M54.16 [facility] [address] [id number] [address] [place] [address] 19 Oct, 2019 [facility] [address] [id number] [address] [place] [address] 11 Oct, 2019 Back pain M54.9 [facility] [address] [id number] [address] [place] [phone] 10 Oct, 2019 [facility] [address] [id number] [address] [place] [phone] 06 Oct, 2019 Skin sore L98.9 [facility] [address] [id number] [address] [place] [address] 24 Sep, 2019 Radiculopathy, lumbar region M54.16 [facility] [address] [id number] [address] [place] [address] 15 Sep, 2019 Back pain M54.9 [facility] [address] [id number] [address] [place] [address] 14 Sep, 2019 Generalized anxiety disorder F41.1 [facility] [address] [id number] [address] [place] [address] Aug, Radiculopathy, lumbar region M54.16 [facility] [address] [id number] [address] [place] [address] Aug, Back pain M54.9 [facility] [address] [id number] [address] [place] [address] Aug, Lumbar radiculopathy M54.16 ; Generalized anxiety disorder F41.1 and Drug-induced constipation K59.03 [facility] [address] [id number] [address] [place] [address] Jul, Radiculopathy, lumbar region M54.16 [facility] [address] [id number] [address] [place] [address] Jul, [facility] [address] [id number] [address] [place] [address] Jul, [facility] [address] [id number] [address] [place] [address] Jul, Back pain M54.9 [facility] [address] [id number] [address] [place] [address] Jul, Radiculopathy, lumbar region M54.16 [facility] [address] [id number] [address] [place] [address] Jul, Radiculopathy, lumbar region M54.16 [facility] [address] [id number] [address] [place] [address] Jun, Back pain M54.9 [facility] [address] [id number] [address] [place] [phone] Jun, [facility] [address] [id number] [address] [place] [address] Jun, Radiculopathy, lumbar region M54.16 [facility] [address] [id number] [address] [place] [address] Jun, [facility] [address] [id number] [address] [place] [address] May, Back pain M54.9 [facility] [address] [id number] [address] [place] [address] May, Cellulitis of other specifie d site L03.818 ; Dermatitis L30.9 and Lumbar radiculopathy M54.16 [facility] [address] [id number] [address] [place] [address] May, [facility] [address] [id number] [address] [place] [address] May, Back pain M54.9 [facility] [address] [id number] [address] [place] [phone] May, [facility] [address] [id number] [address] [place] [phone] 04 May, 2019 Back pain M54.9 [facility] [address] [facility] [id number] [address] [place] [address] 14 Apr, 2019 [facility] [address] [facility] [id number] [address] [place] [phone] 08 Apr, 2019 Back pain M54.9 [facility] [address] [facility] [id number] [address] [place] [phone] 07 Apr, 2019 Hyponatremia E87.1 [facility] [address] [facility] [id number] [address] [place] [address] Apr, Hyponatremia E87.1 [facility] [address] [facility] [id number] [address] [place] [address] Mar, Arthritis M19.90 ; Impacted cerumen of right ear H61.21 and Hypertension I10 [facility] [address] [place] [id number] [place] [id number] 16 Mar, 2019 [facility] [address] [facility] [id number] [address] [place] [address] Mar, Back pain M54.9 [facility] [address] [facility] [id number] [address] [place] [phone] Feb, Back pain M54.9 [facility] [address] [facility] [id number] [address] [place] [phone] Feb, [facility] [address] [facility] [id number] [address] [place] [address] 04 Feb, 2019 Dermatitis L30.9 [facility] [address] [facility] [id number] [address] [place] [address] January, Dermatitis L30.9 [facility] [address] [facility] [id number] [address] [place] [address] January, [facility] [address] [place] [id number] [address] [place] [address] January, Back pain M54.9 [facility] [address] [id number] [address] [place] [phone] Dec, [facility] [address] [id number] [address] [place] [address] Dec, Back pain M54.9 [facility] [address] [id number] [address] [place] [address] Dec, Lumbar radiculopathy M54.16 ; Arthritis M19.90 and Dyshydrosis L30.1 [facility] [address] [id number] [address] [place] [phone] Nov, Back pain M54.9 [facility] [address] [id number] [address] [place] [address] Nov, [facility] [address] [id number] [address] [place] [address] Oct, [facility] [address] [id number] [address] [place] [phone] Oct, Back pain M54.9 [facility] [address] [id number] [address] [place] [phone] Oct, [facility] [address] [id number] [address] [place] [address] Oct, [facility] [address] [id number] [address] [place] [address] Sep, Back pain M54.9 [facility] [address] [id number] [address] [place] [phone] Sep, [facility] [address] [id number] [address] [place] [address] Aug, Back pain M54.9 [facility] [address] [id number] [address] [place] [address] Aug, Encounter for immunization Z 23 ; Arthritis M19.90 and Generalized anxiety disorder F41.1 [facility] [address] [id number] [address] [place] [phone] 14 Aug, 2018 [facility] [address] [id number] [address] [place] [address] Aug, [facility] [address] [id number] [address] [place] [address] Jul, Back pain M54.9 [facility] [address] [id number] [address] [place] [phone] Jul, [facility] [address] [id number] [address] [place] [phone] Jul, [facility] [address] [id number] [address] [place] [address] Jun, Back pain M54.9 [facility] [address] [id number] [address] [place] [phone] Jun, [facility] [address] [id number] [address] [place] [address] Jun, Back pain M54.9 [facility] [address] [id number] [address] [place] [address] 11 May, 2018 Lumbar radiculopathy M54.16 ; Hypertension I10 and Generalized anxiety disorder F41.1 [facility] [address] [id number] [address] [place] [address] 06 May, 2018 Back pain M54.9 [facility] [address] [id number] [address] [place] [address] Apr, [facility] [address] [id number] [address] [place] [address] Apr, [facility] [address] [id number] [address] [place] [address] Apr, Back pain M54.9 [facility] [address] [id number] [address] [place] [address] Mar, Back pain M54.9 [facility] [address] [id number] [address] [place] [phone] Feb, [facility] [address] [id number] [address] [place] [phone] Feb, [facility] [address] [id number] [address] [place] [address] Feb, [facility] [address] [id number] [address] [place] [address] Feb, Back pain M54.9 [facility] [address] [id number] [address] [place] [phone] Feb, Back pain M54.9 ; Hypertensi on I10 ; Generalized anxiety disorder F41.1 and Venous insufficiency I87.2 [facility] [address] [id number] [address] [place] [address] January, [facility] [address] [id number] [address] [place] [address] January, Back pain M54.9 [facility] [address] [id number] [address] [place] [address] Dec, [facility] [address] [id number] [address] [place] [address] Dec, Back pain M54.9 [facility] [address] [id number] [address] [place] [phone] Nov, Back pain M54.9 [facility] [address] [id number] [address] [place] [phone] Nov, [facility] [address] [id number] [address] [place] [address] Nov, Lumbar radiculopathy M54.16 ; Hypertension I10 ; Arthritis M19.90 and Back pain M54.9 [facility] [address] [id number] [address] [place] [address] Oct, Back pain M54.9 [facility] [address] [id number] [address] [place] [phone] Oct, [facility] [address] [id number] [address] [place] [id number] Sep, Back pain M54.9 [facility] [address] [id number] [address] [place] [address] Sep, [facility] [address] [id number] [address] [place] [address] Aug, Back pain M54.9 [facility] [address] [id number] [address] [place] [address] Jul, Back pain M54.9 [facility] [address] [id number] [address] [place] [phone] Jul, Encounter for immunization Z 23 ; Back pain M54.9 ; Hypertension I10 and Lumbar radiculopathy M54.16 [facility] [address] [id number] [address] [place] [id number] Jul, Back pain M54.9 [facility] [address] [id number] [address] [place] [phone] Jun, Vitamin D deficiency E55.9 [facility] [address] [id number] [address] [place] [phone] Jun, Back pain M54.9 [facility] [address] [id number] [address] [place] [phone] May, [facility] [address] [id number] [address] [place] [address] May, [facility] [address] [facility] [id number] [address] [place] [address] May, [facility] [address] [id number] [address] [place] [address] May, Back pain M54.9 [facility] [address] [id number] [address] [place] [address] 15 Apr, 2017 Back pain M54.9 ; Hypertensi on I10 ; Arthritis M19.90 and Generalized anxiety disorder F41.1 [facility] [address] [id number] [address] [place] [id number] 08 Apr, 2017 Back pain M54.9 [facility] [address] [id number] [address] [place] [address] 12 Mar, 2017 Back pain M54.9 [facility] [address] [id number] [address] [place] [address] 10 Mar, 2017 Vitamin D deficiency E55.9 [place] [id number] [facility] [id number] [address] [place] [address] 15 Feb, 2017 Vitamin D deficiency E55.9 [place] [address] [facility] [id number] [address] [place] [phone] 14 Feb, 2017 Vitamin D deficiency E55.9 [facility] [address] [id number] [address] [place] [address] 13 Feb, 2017 Back pain M54.9 [place] [address] [facility] [id number] [address] [place] [address] January, Back pain M54.9 [place] [address] [id number] [address] [place] [address] January, Arthritis M19.90 [facility] [address] [facility] [id number] [address] [place] [address] January, Vitamin D deficiency E55.9 a nd Arthritis M19.90 [place] [address] [facility] [id number] [address] [place] [address] Dec, Medicare annual wellness vis it, initial Z00.00 and Encounter for immunization Z23 [place] [id number] [id number] [address] [place] [phone] 18 Dec, 2016 Back pain M54.9 [place] [address] [id number] [address] [place] [address] Nov, Back pain M54.9 [facility] [address] [id number] [address] [place] [address] Oct, Back pain M54.9 [facility] [address] [id number] [address] [place] [address] Oct, COPD (chronic obstructive pu lmonary disease) J44.9 [facility] [address] [id number] [address] [place] [address] Oct, [facility] [address] [id number] [address] [place] [address] Oct, Hypertension I10 ; Back pain M54.9 and Encounter for immunization Z23 [facility] [address] [id number] [address] [place] [phone] Sep, [facility] [address] [id number] [address] [place] [address] Sep, Back pain M54.9 [facility] [address] [id number] [address] [place] [address] Sep, Back pain M54.9 [facility] [address] [id number] [address] [place] [phone] Aug, [facility] [address] [id number] [address] [place] [address] Aug, Back pain M54.9 [facility] [address] [id number] [address] [place] [phone] Aug, [facility] [address] [id number] [address] [place] [phone] Aug, [facility] [address] [id number] [address] [place] [phone] Aug, Back pain M54.9 [facility] [address] [id number] [address] [place] [phone] Jul, [facility] [address] [id number] [address] [place] [phone] Jul, Back pain M54.9 [facility] [address] [id number] [address] [place] [address] Jun, Back pain M54.9 ; Hypertensi on I10 ; Generalized anxiety disorder F41.1 and Encounter for immunization Z23 [facility] [address] [id number] [address] [place] [phone] Jun, [facility] [address] [id number] [address] [place] [address] May, [facility] [address] [id number] [address] [place] [phone] Apr, [facility] [address] [id number] [address] [place] [address] Apr, [facility] [address] [id number] [address] [place] [phone] Mar, [facility] [address] [id number] [address] [place] [phone] Mar, [facility] [address] [id number] [address] [place] [id number] Mar, [facility] [address] [id number] [address] [place] [phone] Feb, Back pain M54.9 and Hyperten madelyn I10 [facility] [address] [id number] [address] [place] [phone] Feb, Back pain M54.9 [facility] [address] [id number] [address] [place] [id number] Dec, COPD (chronic obstructive pu lmonary disease) J44.9 [facility] [address] [id number] [address] [place] [id number] Dec, [facility] [address] [id number] [address] [place] [id number] Dec, Back pain M54.9 [facility] [address] [id number] [address] [place] [id number] 24 Nov, 2015 Back pain M54.9 [facility] [address] [id number] [address] [place] [id number] 14 Nov, 2015 COPD (chronic obstructive pu lmonary disease) J44.9 [facility] [address] [id number] [address] [place] [id number] Nov, Hypertension I10 and Back pa in M54.9 [facility] [address] [id number] [address] [place] [phone] Oct, Hypertension I10 and Back pa in M54.9 [facility] [address] [id number] [address] [place] [id number] Oct, Back pain M54.9 [facility] [address] [id number] [address] [place] [phone] Sep, Back pain M54.9 [facility] [address] [id number] [address] [place] [id number] Sep, [facility] [address] [id number] [address] [place] [phone] Sep, [facility] [address] [id number] [address] [place] [id number] Sep, [facility] [address] [id number] [address] [place] [id number] Sep, [facility] [address] [id number] [address] [place] [id number] Aug, [facility] [address] [id number] [address] [place] [id number] Aug, [facility] [address] [id number] [address] [place] [phone] Aug, [facility] [address] [id number] [address] [place] [id number] Aug, [facility] [address] [id number] [address] [place] [id number] Aug, [facility] [address] [facility] [id number] [address] [place] [phone] Jul, [facility] [address] [id number] [address] [place] [id number] Jul, Back pain M54.9 ; Arthritis M19.90 ; Hypertension I10 and Encounter for immunization Z23 [facility] [address] [id number] [address] [place] [id number] Jul, Generalized anxiety disorder F41.1 and Depressive disorder, not elsewhere classified F32.9 [facility] [address] [id number] [address] [place] [id number] Jul, [facility] [address] [id number] [address] [place] [id number] Jul, [facility] [address] [id number] [address] [place] [id number] Jul, [facility] [address] [id number] [address] [place] [id number] Jun, [facility] [address] [id number] [address] [place] [id number] Jun, [facility] [address] [id number] [address] [place] [id number] May, [facility] [address] [id number] [address] [place] [id number] May, [facility] [address] [id number] [address] [place] [id number] May, [facility] [address] [facility] [id number] [address] [place] [id number] 11 May, 2015 [facility] [address] [id number] [address] [place] [address] May, Benign essential hypertensio n 401.1 ; Anxiety state, unspecified 300.00 ; Back pain 724.5 and Arthritis 716.90 [facility] [address] [id number] [address] [place] [phone] May, [facility] [address] [id number] [address] [place] [phone] Apr, [facility] [address] [id number] [address] [place] [address] Apr, [facility] [address] [id number] [address] [place] [id number] Apr, [facility] [address] [id number] [address] [place] [phone] Mar, [facility] [address] [id number] [address] [place] [phone] Mar, [facility] [address] [id number] [address] [place] [phone] Mar, [facility] [address] [id number] [address] [place] [id number] Feb, High risk medication use V58 .69 [facility] [address] [id number] [address] [place] [id number] Feb, Benign essential hypertensio n 401.1 ; Anxiety state, unspecified 300.00 and Chronic pain 338.29 [facility] [address] [id number] [address] [place] [phone] Feb, [facility] [address] [id number] [address] [place] [phone] January, [facility] [address] [id number] [address] [place] [id number] January, [facility] [address] [id number] [address] [place] [id number] January, [facility] [address] [id number] [address] [place] [address], [place] [address] January, [facility] [address] [id number] [address] [place] [address], [place] [address] Dec, [facility] [address] [id number] [address] [place] [address], [place] [address] Dec, [facility] [address] [id number] [address] [place] [address], [place] [address] Nov, [facility] [address] [id number] [address] [place] [address], [place] [address] Nov, [facility] [address] [id number] [address] [place] [address], [place] [address] Nov, [facility] [address] [id number] [address] [place] [address], [place] [address] Nov, [facility] [address] [id number] [address] [place] [address], [place] [address] Oct, [facility] [address] [id number] [address] [place] [address], [place] [address] Oct, [facility] [address] [id number] [address] [place] [address], [place] [address] Oct, [facility] [address] [id number] [address] [place] [address], [place] [address] Oct, [facility] [address] [id number] [address] [place] [address], [place] [address] Oct, [facility] [address] [id number] [address] [place] [address], [place] [address] Sep, [facility] [address] [id number] [address] [place] [address], [place] [address] Sep, [facility] [address] [id number] [address] [place] [address], [place] [address] Sep, [facility] [address] [id number] [address] [place] [address], [place] [address] Sep, [facility] [address] [id number] [address] [place] [address], [place] [address] Aug, [facility] [address] [id number] [address] [place] [address], [place] [address] Aug, [facility] [address] [id number] [address] [place] [address], [place] [address] Aug, [facility] [address] [id number] [address] [place] [address], [place] [address] Aug, [facility] [address] [id number] [address] [place] [address], [place] [address] Aug, [facility] [address] [id number] [address] [place] [address], [place] [address] Aug, [facility] [address] [id number] [address] [place] [address], [place] [address] Jul, [facility] [address] [id number] [address] [place] [address], [place] [address] Jul, [facility] [address] [id number] [address] [place] [address], [place] [address] Jun, [facility] [address] [id number] [address] [place] [address], [place] [address] Jun, [facility] [address] [id number] [address] [place] [address], [place] [address] Jun, [facility] [address] [id number] [address] [place] [address], [place] [address] Jun, [facility] [address] [id number] [address] [place] [address], [place] [address] May, [facility] [address] [id number] [address] [place] [address], [place] [address] May, [facility] [address] [id number] [address] [place] [address], [place] [address] May, [facility] [address] [id number] [address] [place] [address], [place] [address] May, [facility] [address] [id number] [address] [place] [address], [place] [address] Apr, [facility] [address] [id number] [address] [place] [address], [place] [address] Apr, [facility] [address] [id number] [address] [place] [address], [place] [address] Apr, [facility] [address] [id number] [address] [place] [address], [place] [address] Apr, [facility] [address] [id number] [address] [place] [address], [place] [address] Apr, [facility] [address] [id number] [address] [place] [address], [place] [address] Apr, [facility] [address] [id number] [address] [place] [address], [place] [address] Mar, [facility] [address] [id number] [address] [place] [address], [place] [address] Mar, [facility] [address] [id number] [address] [place] [address], [place] [address] Mar, [facility] [address] [id number] [address] [place] [address], [place] [address] Mar, [facility] [address] [id number] [address] [place] [address], [place] [address] Feb, [facility] [address] [id number] [address] [place] [address], [place] [address] Feb, [facility] [address] [id number] [address] [place] [address], [place] [address] Feb, [facility] [address] [id number] [address] [place] [address], [place] [address] January, [facility] [address] [id number] [address] [place] [address], [place] [address] January, [facility] [address] [id number] [address] [place] [address], [place] [address] January, [facility] [address] [id number] [address] [place] [address], [place] [address] January, [facility] [address] [id number] [address] [place] [address], [place] [address] January, [facility] [address] [id number] [address] [place] [address], [place] [address] January, [facility] [address] [id number] [address] [place] [address], [place] [address] January, [facility] [address] [id number] [address] [place] [address], [place] [address] January, [facility] [address] [id number] [address] [place] [address], [place] [address] Dec, [facility] [address] [id number] [address] [place] [address], [place] [address] Dec, [facility] [address] [id number] [address] [place] [address], [place] [address] Dec, [facility] [address] [id number] [address] [place] [address], [place] [address] Dec, [facility] [address] [id number] [address] [place] [address], [place] [address] Dec, [facility] [address] [id number] [address] [place] [address], [place] [address] Dec, [facility] [address] [id number] [address] [place] [address], [place] [address] Dec, [facility] [address] [id number] [address] [place] [address], [place] [address] Nov, [facility] [address] [id number] [address] [place] [address], [place] [address] Nov, [facility] [address] [id number] [address] [place] [address], [place] [address] 19 Nov, 2013 [facility] [address] [id number] [address] [place] [address], [place] [address] 19 Nov, 2013 [facility] [address] [id number] [address] [place] [address], [place] [address] 18 Nov, 2013 [facility] [address] [id number] [address] [place] [address], [place] [address] 18 Nov, 2013 [facility] [address] [id number] [address] [place] [address], [place] [address] 11 Nov, 2013 [facility] [address] [id number] [address] [place] [address], [place] [address] 11 Nov, 2013 [facility] [address] [id number] [address] [place] [address], [place] [address] 07 Nov, 2013 [facility] [address] [id number] [address] [place] [address], [place] [address] 07 Nov, 2013 [facility] [address] [id number] [address] [place] [address], [place] [address] 07 Nov, 2013 [facility] [address] [id number] [address] [place] [address], [place] [address] 07 Nov, 2013 [facility] [address] [id number] [address] [place] [address], [place] [address] 07 Oct, 2013 [facility] [address] [id number] [address] [place] [address], [place] [address] 07 Oct, 2013 [facility] [address] [id number] [address] [place] [address], [place] [address] Sep, [facility] [address] [id number] [address] [place] [address], [place] [address] Sep, [facility] [address] [id number] [address] [place] [address], [place] [address] Sep, [facility] [address] [id number] [address] [place] [address] [address] Sep, [facility] [address] [id number] [address] [place] [address], [place] [address] Aug, [facility] [address] [id number] [address] [place] [address], [place] [address] Aug, [facility] [address] [id number] [address] [place] [address], [place] [address] 15 Jul, 2013 [facility] [address] [id number] [address] [place] [address], [place] [address] 15 Jul, 2013 [facility] [address] [id number] [address] [place] [address], [place] [address] 15 Jul, 2013 [facility] [address] [id number] [address] [place] [address], [place] [address] 15 Jul, 2013 [facility] [address] [id number] [address] [place] [address], [place] [address] 28 Jun, 2013 [facility] [address] [id number] [address] [place] [address], [place] [address] 28 Jun, 2013 [facility] [address] [id number] [address] [place] [address], [place] [address] 18 Jun, 2013 [facility] [address] [id number] [address] [place] [address] 18 Jun, 2013 [facility] [address] [id number] [address] [place] [address] 14 Jun, 2013 [facility] [address] [id number] [address] [place] [address] 14 Jun, 2013 [facility] [address] [id number] [address] [place] [address], [place] [address] 20 May, 2013 [facility] [address] [id number] [address] [place] [address] 18 May, 2013 [facility] [address] [id number] [address] [place] [address], [place] [address] 16 May, 2013 [facility] [address] [id number] [address] [place] [address], [place] [address] Apr, [facility] [address] [id number] [address] [place] [address], [place] [address] Apr, [facility] [address] [id number] [address] [place] [address], [place] [address] Apr, [facility] [address] [id number] [address] [place] [address], [place] [address] Mar, [facility] [address] [id number] [address] [place] [address], [place] [address] Mar, [facility] [address] [id number] [address] [place] [address], [place] [address] Feb, [facility] [address] [id number] [address] [place] [address], [place] [address] Feb, [facility] [address] [id number] [address] [place] [address], [place] [address] Feb, [facility] [address] [id number] [address] [place] [address], [place] [address] January, [facility] [address] [id number] [address] [place] [address], [place] [address] January, [facility] [address] [id number] [address] [place] [address], [place] [address] January, [facility] [address] [id number] [address] [place] [address], [place] [address] 15 Dec, 2012 [facility] [address] [id number] [address] [place] [address], [place] [address] Dec, [facility] [address] [id number] [address] [place] [address], [place] [address] 08 Dec, 2012 [facility] [address] [id number] [address] [place] [address], [place] [address] Nov, [facility] [address] [id number] [address] [place] [address], [place] [address] 14 Nov, 2012 [facility] [address] [id number] [address] [place] [address], [place] [address] 13 Nov, 2012 [facility] [address] [id number] [address] [place] [address], [place] [address] 18 Oct, 2012 [facility] [address] [id number] [address] [place] [address], [place] [address] 14 Oct, 2012 [facility] [address] [id number] [address] [place] [address], [place] [address] Sep, [facility] [address] [id number] [address] [place] [address], [place] [address] Sep, [facility] [address] [id number] [address] [place] [address], [place] [address] Sep, [facility] [address] [id number] [address] [place] [address], [place] [address] Aug, [facility] [address] [id number] [address] [place] [address], [place] [address] Aug, [facility] [address] [id number] [address] [place] [address], [place] [address] Aug, [facility] [address] [id number] [address] [place] [address], [place] [address] Aug, [facility] [address] [id number] [address] [place] [address], [place] [address] Aug, [facility] [address] [id number] [address] [place] [address], [place] [address] Jul, [facility] [address] [id number] [address] [place] [address], [place] [address] Jul, [facility] [address] [id number] [address] [place] [address], [place] [address] Jul, [facility] [address] [id number] [address] [place] [address], [place] [address] Jul, [facility] [address] [id number] [address] [place] [address] Jul, [facility] [address] [id number] [address] [place] [address], [place] [address] Jul, [facility] [address] [id number] [address] [place] [address], [place] [address] Jun, [facility] [address] [id number] [address] [place] [address], [place] [address] Jun, [facility] [address] [id number] [address] [place] [address], [place] [address] Jun, [facility] [address] [id number] [address] [place] [address], [place] [address] Jun, [facility] [address] [id number] [address] [place] [address], [place] [address] May, [facility] [address] [id number] [address] [place] [address], [place] [address] May, [facility] [address] [id number] [address] [place] [address], [place] [address] Apr, [facility] [address] [id number] [address] [place] [address], [place] [address] Apr, [facility] [address] [id number] [address] [place] [address], [place] [address] Apr, [facility] [address] [id number] [address] [place] [address], [place] [address] Mar, [facility] [address] [id number] [address] [place] [address], [place] [address] Mar, [facility] [address] [id number] [address] [place] [address], [place] [address] Feb, [facility] [address] [id number] [address] [place] [address], [place] [address] January, [facility] [address] [id number] [address] [place] [address], [place] [address] January, [facility] [address] [id number] [address] [place] [address], [place] [address] 27 Dec, 2011 [facility] [address] [id number] [address] [place] [address], [place] [address] 25 Dec, 2011 [facility] [address] [id number] [address] [place] [address], [place] [address] 05 Dec, 2011 [facility] [address] [id number] [address] [place] [address], [place] [address] 04 Dec, 2011 [facility] [address] [id number] [address] [place] [address], [place] [address] 30 Nov, 2011 [facility] [address] [id number] [address] [place] [address], [place] [address] Nov, [facility] [address] [id number] [address] [place] [address], [place] [address] Nov, [facility] [address] [id number] [address] [place] [address], [place] [address] Nov, [facility] [address] [id number] [address] [place] [address], [place] [address] 14 Oct, 2011 [facility] [address] [id number] [address] [place] [address], [place] [address] Oct, [facility] [address] [id number] [address] [place] [address], [place] [address] Sep, [facility] [address] [id number] [address] [place] [address], [place] [address] Aug, [facility] [address] [id number] [address] [place] [address], [place] [address] Aug, [facility] [address] [id number] [address] [place] [address], [place] [address] Aug, [facility] [address] [id number] [address] [place] [address], [place] [address] Jul, [facility] [address] [id number] [address] [place] [address] [address] 11 Jul, 2011 [facility] [address] [id number] [address] [place] [address], [place] [address] 11 Jul, 2011 [facility] [address] [id number] [address] [place] [address], [place] [address] 20 Jun, 2011 [facility] [address] [id number] [address] [place] [address], [place] [address] 14 Jun, 2011 [facility] [address] [id number] [address] [place] [address], [place] [address] 13 Jun, 2011 [facility] [address] [id number] [address] [place] [address], [place] [address] 13 Jun, 2011 [facility] [address] [id number] [address] [place] [address], [place] [address] 19 May, 2011 [facility] [address] [id number] [address] [place] [address], [place] [address] January, [facility] [address] [id number] [address] [place] [address], [place] [address] 28 Aug, 2010 [facility] [address] [id number] [address] [place] [address], [place] [address] 27 Aug, 2010 [facility] [address] [id number] [address] [place] [address], [place] [address] 10 Aug, 2010 [facility] [address] [id number] [address] [place] [address], [place] [address] Aug, [facility] [address] [id number] [address] [place] [id number] Jul, [facility] [address] [id number] [address] [place] [address], [place] [address] Jul, [facility] [address] [id number] [address] [place] [address], [place] [address] 15 Jun, 2010 [facility] [address] [id number] [address] [place] [address], [place] [address] 15 Jun, 2010 [facility] [address] [id number] [address] [place] [id number] 16 May, 2010 [facility] [address] [facility] [id number] [address] [place] [id number] January, IMMUNIZATIONS No Known Immunizations SOCIAL HISTORY Never Assessed REASON FOR VISIT PLAN OF CARE VITAL SIGNS Height 62 in 2013-06-06 Weight 148 lbs 2013-06-06 Temperature 97.3 degrees Fahrenheit 2013-06-06 Heart Rate 80 bpm 2013-06-06 Respiratory Rate 18 2013-06-06 Blood pressure systolic 120 mmHg 2013-06-06 Blood pressure diastolic 62 mmHg 2013-06-06 MEDICATIONS Unknown Medications RESULTS No Results PROCEDURES [...]
--- OUTSIDE RECORDS SUMMARY | 2020-03-25 20:54 | XMS REPORT | Continuity of Care Document ---
Demographics Preferred Language Unknown Marital Status Unknown Mu-Is[employer] Affiliation Unknown Race Unknown Ethnic Group Unknown Author Organization Unknown Address Unknown Phone Unavailable Allergies Active Description Code Type Severity Reaction Onset Reported/Identified Relationship to Patient Clinical Status Yes Penicillins Drug Allergy 01/26/2009 Yes Penicillins Drug Allergy N/A N/A 01/26/2009 Yes gabapentin [id number] Drug Allerg y Unknown N/A 06/25/2019 Yes hydrochlorothiazide [id number] Drug Allergy Unknown N/A 06/25/2019 Yes lisinopril [id number] Drug Allerg y Unknown N/A 06/25/2019 Yes losartan [id number] Drug Allergy Unknown N/A 06/25/2019 Yes Penicillins [id number] Drug Aller gy Unknown N/A 06/25/2019 Yes pregabalin [id number] Drug Allerg y Unknown N/A 06/25/2019 Yes Sulfa (Sulfonamide Antibiotics) [id number] Drug Allergy Unknown N/A 019 Yes sulfamethoxazole [id number] Drug Allergy Unknown N/A 06/25/2019 Yes trimethoprim [id number] Drug Allergy Unknown N/A 06/25/2019 Medications There [...] GOMEZ, DON 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 06/02/2010 AMARIS GMOEZ, DON 401.9 HYPERTENSION (SYSTEMIC) 06/02/2010 DON GLEZ [...] DON 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 06/02/2010 AMARIS GOMEZ, DNO 401.9 HYPERTENSION (SYSTEMIC) 06/02/2010 AMARIS GOMEZ, DNO 244.9 HYPOTHYROIDISM 06/02/2010 AMARIS GOMEZ, DON 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 06/02/2010 AMARIS GOMEZ, DON 401.9 HYPERTENSION (SYSTEMIC) 06/02/2010 AMARIS GOMEZ, DON 244.9 HYPOTHYROIDISM 06/02/2010 AMARIS GOMEZ, DON 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 06/02/2010 AMARIS GMOEZ, DON 401.9 HYPERTENSION (SYSTEMIC) 06/02/2010 AMARIS GOMEZ, [...] MD 300.0 0 ANXIETY STATE UNSPECIFIED 12/15/2011 DNO GLEZ MD 300.0 0 ANXIETY STATE UNSPECIFIED [...] 12/10/2019 LILI DYE MD Ot 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 [...] 12/10/2019 LILI DYE MD Ot 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 [...] 12/11/2019 LILI DYE MD Ot 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 [...] 12/11/2019 LILI DYE MD Ot 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 [...] 12/13/2019 LILI DYE MD Ot 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 [...] 12/13/2019 LILI DYE MD Ot 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 [...] 12/26/2019 LILI DYE MD Ot 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 [...] ULCER OF RIGHT HEEL AND MIDF 12/29/2019 LILI DYE MD Ot L97.423 NON-PRS CHR [...] HISTORY OF NICOTINE DEPENDENCE 01/30/2020 LILI DYE MD, Ot G60 .8 OTHER HEREDITARY AND IDIOPATHIC [...] Ot 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 HISTORY OF NICOTINE DEPENDENCE 02/13/2020 PRITI ALVAREZ APRN Ot F41 .9 ANXIETY DISORDER, UNSPECIFIED 02/13/2020 PRITI ALVAREZ BULK FOLDER Ot I10 ESSENTIAL (PRIMARY) HYPERTENSION 02/13/2020 PRITI ALVAREZ BULK FOLDER Ot K21 .9 GASTRO-ESOPHAGEAL REFLUX DISEASE WITHOUT 02/13/2020 PRITI ALVAREZ BULK FOLDER Ot K56.41 FECAL IMPACTION 02/13/2020 PRITI ALVAREZ BULK FOLDER Ot K59.00 CONSTIPATION, UNSPECIFIED 02/13/2020 PRITI ALVAREZ BULK FOLDER Ot Z82.49 FAMILY HX OF ISCHEM HEART DIS AND OTH DI 02/13/2020 PRITI ALVAREZ APRN Ot Z88 .0 ALLERGY STATUS TO PENICILLIN 02/13/2020 PRITI ALVAREZ BULK FOLDER Ot Z88 .1 ALLERGY STATUS TO OTHER ANTIBIOTIC AGENT 02/13/2020 PRITI ALVAREZ BULK FOLDER Ot Z88 .2 ALLERGY STATUS TO SULFONAMIDES STATUS 02/13/2020 PRITI ALVAREZ BULK FOLDER Ot Z88 .8 ALLERGY STATUS TO OTH DRUG/MEDS/BIOL SUB 02/13/2020 LILI DYE MD Ot 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 02/13/2020 LILI DYE MD, Ot L97.422 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 02/13/2020 LILI DYE MD Ot M19.91 PRIMARY OSTEOARTHRITIS, UNSPECIFIED SITE 02/13/2020 LILI DYE MD Ot 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 02/13/2020 LILI DYE MD, Ot 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 02/13/2020 LILI DYE MD, Ot 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 HISTORY OF NICOTINE DEPENDENCE 02/16/2020 PRITI ALVAREZ APRN Ot F41 .9 ANXIETY DISORDER, UNSPECIFIED 02/16/2020 PRITI ALVAREZ APRN Ot I10 ESSENTIAL (PRIMARY) HYPERTENSION 02/16/2020 PRITI ALVAREZ APRN Ot K21 .9 GASTRO-ESOPHAGEAL REFLUX DISEASE WITHOUT 02/16/2020 PRITI ALVAREZ BULK FOLDER Ot K56.41 FECAL IMPACTION 02/16/2020 PRITI ALVAREZ APRN Ot K59.00 CONSTIPATION, UNSPECIFIED 02/16/2020 PRITI ALVAREZ APRN Ot Z82.49 FAMILY HX OF ISCHEM HEART DIS AND OTH DI 02/16/2020 PRITI ALVAREZ APRN Ot Z88 .0 ALLERGY STATUS TO PENICILLIN 02/16/2020 PRITI ALVAREZ APRN Ot Z88 .1 ALLERGY STATUS TO OTHER ANTIBIOTIC AGENT 02/16/2020 PRITI ALVAREZ APRN Ot Z88 .2 ALLERGY STATUS TO SULFONAMIDES STATUS 02/16/2020 PRITI ALVAREZ APRN Ot Z88 .8 ALLERGY STATUS TO OTH DRUG/MEDS/BIOL SUB 02/17/2020 LILI DYE MD Ot 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 02/17/2020 LILI DYE MD Ot 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 02/27/2020 LILI DYE MD Ot 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 HISTORY OF NICOTINE DEPENDENCE 03/05/2020 LILI DYE MD Ot 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 03/05/2020 LILI DYE MD Ot L97.422 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 03/05/2020 LILI DYE MD Ot 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 03/09/2020 LILI DYE MD Ot 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 03/09/2020 LILI DYE MD Ot L97.422 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 03/09/2020 LILI DYE MD Ot 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 03/09/2020 LILI DYE MD Ot 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 03/09/2020 LILI DYE MD Ot L97.422 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 03/09/2020 LILI DYE MD Ot 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 03/24/2020 LILI DYE MD Ot 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 03/24/2020 LILI DYE MD Ot L97.422 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 03/24/2020 LILI DYE MD Ot 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 Procedures Code Description Performed By Per formed On Q2038 FLUZ ONE (MEDICARE OFFICE VISIT ONLY) 08/15/2012 G0008 FLU ADMINISTRATION (MEDICARE ONLY) 08/15/2012 64290 ROUT INE VENIPUNCTURE 11/28/2012 88287 CMP 11/28/2012 [id number] GF R CALC (RESULT ONLY) 11/28/2012 65210 TSH 11/28/2012 G0008 FLU ADMINISTRATION (MEDICARE ONLY) 08/01/2013 Ko Zaidi 08/29/2013 92044 ROUT INE VENIPUNCTURE 12/02/2013 18620 CMP 12/02/2013 85979 LIPI D PANEL 12/02/2013 [id number] GF R CALC (RESULT ONLY) 12/02/2013 90987 TSH 12/02/2013 85542 ROUT INE VENIPUNCTURE 08/17/2014 24449 TSH 08/17/2014 79430 ROUT INE VENIPUNCTURE 12/28/2014 [id number] GF R CALC (RESULT ONLY) 12/28/2014 17257 CMP 12/28/2014 00005 LIPI D PANEL 12/28/2014 [id number] YI PPLEMENT R INGUINAL REGION W SYNTH SUB 06/25/2019 [id number] YI PPLEMENT R FEMORAL REGION W SYNTH [...] 7-25 CREATININE 0.81 mg/dL 0.60-0.88 eGFR NON-AFR. PRYDEINIG 69 mL/min/1.73m2 > OR = 60 eGFR [...] 7-25 CREATININE 0.70 mg/dL 0.60-0.88 eGFR NON-AFR. PRYDEINIG 81 mL/min/1.73m2 > OR = 60 eGFR [...] 7-25 CREATININE 0.55 mg/dL 0.60-0.88 eGFR NON-AFR. PRYDEINIG 88 mL/min/1.73m2 > OR = 60 eGFR [...] plasma prealbumin measurement (mass/volume) 19.0 % 18.0-37.0 Complete blood count (CBC) with automate d white blood cell (WBC) differential - 02/13/20 16:45 Blood leukocytes automated count (number/volume) 7.3 10*3/uL 4.3-11.0 Blood erythrocytes automated count (number/volume) 3.87 10*6/uL 4.35-5.85 Venous blood hemoglobin measurement (mass/volume) 11.4 g/dL 11.5-16.0 Blood hematocrit (volume fraction) 34 % 35-52 Automated erythrocyte mean corpuscular volume 87 [ foz_us] 80-99 Automated erythrocyte mean corpuscular h emoglobin (mass per erythrocyte) 29 pg 25-34 Automated erythrocyte mean corpuscular h emoglobin concentration measurement (mass/volume) 34 g/dL 32-36 Automated erythrocyte distribution width ratio 14. 1 % 10.0- 14.5 Automated blood platelet count (count/volume) 339 10*3/uL 130-400 Automated blood platelet mean volume measurement 9.6 [foz_us] 7.4-10.4 Automated blood neutrophils/100 leukocytes 63 % 42-75 Automated blood lymphocytes/100 leukocytes 29 % 12-44 Blood monocytes/100 leukocytes 8 % 0-12 Automated blood eosinophils/100 leukocytes 0 % 0-10 Automated blood basophils/100 leukocytes 0 % 0-10 Blood neutrophils automated count (number/volume) 4.6 10*3 1.8-7.8 Blood lymphocytes automated count (number/volume) 2.1 10*3 1.0-4.0 Blood monocytes automated count (number/volume) 0. 6 10*3 0.0-1.0 Automated eosinophil count 0.0 10*3/uL 0 .0-0.3 Automated blood basophil count (count/volume) 0.0 10*3/uL 0.0-0.1 Comprehensive metabolic panel - 02/13/20 16:45 Serum or plasma sodium measurement (moles/volume) 135 mmol/L 135-145 Serum or plasma potassium measurement (moles/volume) 3.6 mmol/L 3.6-5.0 Serum or plasma chloride measurement (moles/volume) 104 mmol/L 98-107 Carbon dioxide 20 mmol/L 21-32 Serum or plasma anion gap determination (moles/volume) 11 mmol/L 5-14 Serum or plasma urea nitrogen measurement (mass/volume ) 12 mg/dL 7-18 Serum or plasma creatinine measurement (mass/volume) 0.61 mg/dL 0.60-1.30 Serum or plasma urea nitrogen/creatinine mass ratio 20 NRG Serum or plasma creatinine measurement w ith calculation of estimated glomerular filtration rate > NRG Serum or plasma glucose measurement (mass/volume) 99 mg/dL 70-105 Serum or plasma calcium measurement (mass/volume) 9.1 mg/dL 8.5-10.1 Serum or plasma total bilirubin measurement (mass/volu me) 0.4 mg/dL 0.1-1.0 Serum or plasma alkaline phosphatase levon surement (enzymatic activity/volume) 79 U/L 40-136 Serum or plasma aspartate aminotransfera se measurement (enzymatic activity/volume) 16 U/L 5-34 Serum or plasma alanine aminotransferase measurement (enzymatic activity/volume) 6 U/L 0-55 Serum or plasma protein measurement (mass/volume) 6.7 g/dL 6.4-8.2 Serum or plasma albumin measurement (mass/volume) 3.8 g/dL 3.2-4.5 CALCIUM CORRECTED 9.3 mg/dL 8.5-10.1 Lipase - 02/13/20 16:45 Lipase 8 U/L 8-78 Complete blood count (CBC) with automate d white blood cell (WBC) differential - 03/04/20 15:24 Blood leukocytes automated count (number/volume) 6.8 10*3/uL 4.3-11.0 Blood erythrocytes automated count (number/volume) 4.05 10*6/uL 4.35-5.85 Venous blood hemoglobin measurement (mass/volume) 11.8 g/dL 11.5-16.0 Blood hematocrit (volume fraction) 35 % 35-52 Automated erythrocyte mean corpuscular volume 87 [ foz_us] 80-99 Automated erythrocyte mean corpuscular h emoglobin (mass per erythrocyte) 29 pg 25-34 Automated erythrocyte mean corpuscular h emoglobin concentration measurement (mass/volume) 34 g/dL 32-36 Automated erythrocyte distribution width ratio 13. 5 % 10.0- 14.5 Automated blood platelet count (count/volume) 241 10*3/uL 130-400 Automated blood platelet mean volume measurement 9.9 [foz_us] 7.4-10.4 Automated blood neutrophils/100 leukocytes 47 % 42-75 Automated blood lymphocytes/100 leukocytes 43 % 12-44 Blood monocytes/100 leukocytes 9 % 0-12 Automated blood eosinophils/100 leukocytes 1 % 0-10 Automated blood basophils/100 leukocytes 1 % 0-10 Blood neutrophils automated count (number/volume) 3.2 10*3 1.8-7.8 Blood lymphocytes automated count (number/volume) 2.9 10*3 1.0-4.0 Blood monocytes automated count (number/volume) 0. 6 10*3 0.0-1.0 Automated eosinophil count 0.1 10*3/uL 0 .0-0.3 Automated blood basophil count (count/volume) 0.0 10*3/uL 0.0-0.1 Comprehensive metabolic panel - 03/04/20 15:24 Serum or plasma sodium measurement (moles/volume) 138 mmol/L 135-145 Serum or plasma potassium measurement (moles/volume) 3.9 mmol/L 3.6-5.0 Serum or plasma chloride measurement (moles/volume) 104 mmol/L 98-107 Carbon dioxide 29 mmol/L 21-32 Serum or plasma anion gap determination (moles/volume) 5 mmol/L 5-14 Serum or plasma urea nitrogen measurement (mass/volume ) 17 mg/dL 7-18 Serum or plasma creatinine measurement (mass/volume) 0.68 mg/dL 0.60-1.30 Serum or plasma urea nitrogen/creatinine mass ratio 25 NRG Serum or plasma creatinine measurement w ith calculation of estimated glomerular filtration rate > NRG Serum or plasma glucose measurement (mass/volume) 84 mg/dL 70-105 Serum or plasma calcium measurement (mass/volume) 9.0 mg/dL 8.5-10.1 Serum or plasma total bilirubin measurement (mass/volu me) 0.3 mg/dL 0.1-1.0 Serum or plasma alkaline phosphatase levon surement (enzymatic activity/volume) 68 U/L 40-136 Serum or plasma aspartate aminotransfera se measurement (enzymatic activity/volume) 18 U/L 5-34 Serum or plasma alanine aminotransferase measurement (enzymatic activity/volume) 9 U/L 0-55 Serum or plasma protein measurement (mass/volume) 6.6 g/dL 6.4-8.2 Serum or plasma albumin measurement (mass/volume) 3.8 g/dL 3.2-4.5 CALCIUM CORRECTED 9.2 mg/dL 8.5-10.1 Complete urinalysis with reflex to cultu re - 03/25/20 17:15 Urine color determination YELLOW NRG Urine clarity determination CLEAR NR G Urine pH measurement by test strip 6.5 5-9 Specific gravity of urine by test strip 1.010 1.016-1.022 Urine protein assay by test strip, semi-quantitative NEGATIVE NEGATIVE Urine glucose detection by automated test strip NE GATIVE NEGATIVE Erythrocytes detection in urine sediment by light micr oscopy NEGATIVE NEGATIVE Urine ketones detection by automated test strip NE GATIVE NEGATIVE Urine nitrite detection by test strip NEGATIVE NEGATIVE Urine total bilirubin detection by test strip NEGA TIVE NEGATIVE Urine urobilinogen measurement by automated test strip (mass/volume) 0.2 mg/dL < = 1.0 Urine leukocyte esterase detection by dipstick NEG ATIVE NEGATIVE Automated urine sediment erythrocyte cou nt by microscopy (number/high power field) NONE NRG Automated urine sediment leukocyte count by microscopy (number/high power field) NONE NRG Bacteria detection in urine sediment by light microsco py NEGATIVE NRG Squamous epithelial cells detection in u rine sediment by light microscopy RARE NRG Crystals detection in urine sediment by light microsco py NONE NRG Casts detection in urine sediment by light microscopy NONE NRG Mucus detection in urine sediment by light microscopy NEGATIVE NRG Complete urinalysis with reflex to culture NO NRG Complete blood count (CBC) with automate d white blood cell (WBC) differential - 03/25/20 17:27 Blood leukocytes automated count (number/volume) 8.3 10*3/uL 4.3-11.0 Blood erythrocytes automated count (number/volume) 4.26 10*6/uL 4.35-5.85 Venous blood hemoglobin measurement (mass/volume) 12.3 g/dL 11.5-16.0 Blood hematocrit (volume fraction) 36 % 35-52 Automated erythrocyte mean corpuscular volume 85 [ foz_us] 80-99 Automated erythrocyte mean corpuscular h emoglobin (mass per erythrocyte) 29 pg 25-34 Automated erythrocyte mean corpuscular h emoglobin concentration measurement (mass/volume) 34 g/dL 32-36 Automated erythrocyte distribution width ratio 13. 7 % 10.0- 14.5 Automated blood platelet count (count/volume) 348 10*3/uL 130-400 Automated blood platelet mean volume measurement 9.5 [foz_us] 7.4-10.4 Automated blood neutrophils/100 leukocytes 56 % 42-75 Automated blood lymphocytes/100 leukocytes 35 % 12-44 Blood monocytes/100 leukocytes 7 % 0-12 Automated blood eosinophils/100 leukocytes 1 % 0-10 Automated blood basophils/100 leukocytes 1 % 0-10 Blood neutrophils automated count (number/volume) 4.7 10*3 1.8-7.8 Blood lymphocytes automated count (number/volume) 2.9 10*3 1.0-4.0 Blood monocytes automated count (number/volume) 0. 6 10*3 0.0-1.0 Automated eosinophil count 0.1 10*3/uL 0 .0-0.3 Automated blood basophil count (count/volume) 0.1 10*3/uL 0.0-0.1 Comprehensive metabolic panel - 03/25/20 17:27 Serum or plasma sodium measurement (moles/volume) 140 mmol/L 135-145 Serum or plasma potassium measurement (moles/volume) 4.1 mmol/L 3.6-5.0 Serum or plasma chloride measurement (moles/volume) 104 mmol/L 98-107 Carbon dioxide 24 mmol/L 21-32 Serum or plasma anion gap determination (moles/volume) 12 mmol/L 5-14 Serum or plasma urea nitrogen measurement (mass/volume ) 10 mg/dL 7-18 Serum or plasma creatinine measurement (mass/volume) 0.77 mg/dL 0.60-1.30 Serum or plasma urea nitrogen/creatinine mass ratio 13 NRG Serum or plasma creatinine measurement w ith calculation of estimated glomerular filtration rate > NRG Serum or plasma glucose measurement (mass/volume) 103 mg/dL 70-105 Serum or plasma calcium measurement (mass/volume) 9.7 mg/dL 8.5-10.1 Serum or plasma total bilirubin measurement (mass/volu me) 0.3 mg/dL 0.1-1.0 Serum or plasma alkaline phosphatase levon surement (enzymatic activity/volume) 93 U/L 40-136 Serum or plasma aspartate aminotransfera se measurement (enzymatic activity/volume) 13 U/L 5-34 Serum or plasma alanine aminotransferase measurement (enzymatic activity/volume) 6 U/L 0-55 Serum or plasma protein measurement (mass/volume) 7.0 g/dL 6.4-8.2 Serum or plasma albumin measurement (mass/volume) 3.9 g/dL 3.2-4.5 CALCIUM CORRECTED 9.8 mg/dL 8.5-10.1 Serum or plasma C reactive protein measu rement (mass/volume) - 03/25/20 17:27 Serum or plasma C reactive protein measurement (mass/v olume) 1.34 mg/dL 0.00-0.50 Encounters ACCT No. Visit Date/Time Discharge Status Pt. Type Provider Facility Loc./Unit Complaint [id number] 10/20/2016 08:41:00 Document Registration [id number] 03/01/2017 10:09:00 Document Registration [id number] 03/04/2020 15:12:00 23:59:59 CLS Outpatient LILI DYE MD [facility] LAB NON PRESSURE CHRONIC UL CER OF LEFT HEEL [id number] 03/04/2020 13:45:00 23:59:59 CLS Outpatient LILI DYE MD [facility] WOUNDCARE [id number] 02/13/2020 15:21:00 19:39:00 DIS Emergency PRITI ALVAREZ APRN [facility] ER CONSTIPATION [id number] 02/12/2020 13:49:00 23:59:59 CLS Outpatient LILI DYE MD [facility] WOUNDCARE [id number] 01/29/2020 13:55:00 23:59:59 CLS Outpatient LILI DYE MD [facility] WOUNDCARE [id number] 01/15/2020 13:46:00 23:59:59 CLS Outpatient LILI DYE MD [facility] WOUNDCARE [id number] 01/01/2020 13:44:00 23:59:59 CLS Outpatient LILI DYE MD [facility] WOUNDCARE [id number] 12/18/2019 14:05:00 23:59:59 CLS Outpatient LILI DYE MD [facility] WOUNDCARE [id number] 12/11/2019 14:37:00 23:59:59 CLS Outpatient LILI DYE MD [facility] [id number] 12/11/2019 13:39:00 23:59:59 CLS Outpatient LILI DYE MD [facility] WOUNDCARE [id number] 12/04/2019 15:54:00 23:59:59 CLS Outpatient LILI DYE MD [facility] LAB PRESSURE ULCER OF RIGHT HEEL [id number] 12/04/2019 13:57:00 23:59:59 CLS Outpatient LILI DYE MD [facility] WOUNDCARE [id number] 06/25/2019 20:28:00 019 15:45:00 DIS Inpatient LUMA SUH DO, [facility] 4TH INCARCERATED FEMORAL HE RNIA, PSBO [id number] 11/07/2013 06:30:00 014 10:05:00 DIS Outpatient [id number] 11/06/2013 13:13:00 014 23:59:59 CLS Outpatient [id number] 03/25/2020 17:34:00 Document Registration [id number] 03/25/2020 12:26:00 P EN Preadmit LILI DYE [id number] 03/05/2020 15:40:00 03/05/2020 23:59:5 9 CLS Outpatient DON GLEZ MD [facility] [id number] 12/02/2019 16:00:00 Document Registration [id number] 04/23/2019 15:00:00 Document Registration [id number] 04/15/2019 16:00:00 Document Registration [id number] 02/13/2019 15:20:00 Document Registration [id number] 02/26/2018 16:20:00 Document Registration [id number] 12/28/2014 11:06:00 12/28/2014 23:59: 59 CLS Outpatient DON GLEZ MD [id number] 11/23/2014 13:57:00 11/23/2014 23:59: 59 CLS Outpatient DON GLEZ MD [id number] 08/17/2014 14:20:00 08/17/2014 23:59: 59 CLS Outpatient DON GLEZ MD [id number] 05/26/2014 14:45:00 05/26/2014 23:59: 59 CLS Outpatient DON GLEZ MD [id number] 05/12/2014 15:43:00 05/12/2014 23:59: 59 CLS Outpatient DON GLEZ MD [id number] 02/13/2014 13:54:00 02/13/2014 23:59: 59 CLS Outpatient DON GLEZ MD [id number] 12/02/2013 08:20:00 12/02/2013 23:59: 59 CLS Outpatient DON GLEZ MD [id number] 11/25/2013 15:46:00 11/25/2013 23:59: 59 CLS Outpatient DON GLEZ MD [id number] 08/29/2013 14:18:00 08/29/2013 23:59: 59 CLS Outpatient DON GLEZ MD [id number] 08/01/2013 13:56:00 08/01/2013 23:59: 59 CLS Outpatient EMELY FAIRCHILD DO [id number] 06/06/2013 12:58:00 06/06/2013 23:59: 59 CLS Outpatient DON GLEZ MD [id number] 03/10/2013 13:59:00 03/10/2013 23:59: 59 CLS Outpatient DON GLEZ MD [id number] 11/28/2012 14:55:00 11/28/2012 23:59: 59 CLS Outpatient DON GLEZ MD [id number] 08/15/2012 12:55:00 08/15/2012 23:59: 59 CLS Outpatient DON GLEZ MD [id number] 14:39:00 2012 23:59:5 9 CLS Outpatient DON GLEZ MD
== END 2020-03-25 19:40 | disposition short-term general hospital (02) ==
LOC: EDUNIT# 16:50 → ER 16:51
DX: S06.309A Unspecified focal traumatic brain injury with loss of consciousness of unspecified duration, initial encounter (principal); I10 Essential (primary) hypertension; K21.9 Gastro-esophageal reflux disease without esophagitis; F41.9 Anxiety disorder, unspecified; Z88.0 Allergy status to penicillin; Z88.2 Allergy status to sulfonamides; Z88.8 Allergy status to other drugs, medicaments and biological substances; Z88.1 Allergy status to other antibiotic agents; Z87.81 Personal history of (healed) traumatic fracture; Z91.81 History of falling; Z77.22 Contact with and (suspected) exposure to environmental tobacco smoke (acute) (chronic); Z82.49 Family history of ischemic heart disease and other diseases of the circulatory system; W19.XXXA Unspecified fall, initial encounter
CPT/HCPCS: 36415; 51701; 70450; 80053; 81000; 85025; 86141

== ENCOUNTER → 2020-03-25 | Outpatient (CLI) | payer MEDICARE | LOC: WOUNDCARE 13:52 | PROVIDERS: ATTEND Surgery | DX: L97.422 Non-pressure chronic ulcer of left heel and midfoot with fat layer exposed (principal); G60.8 Other hereditary and idiopathic neuropathies; R54 Age-related physical debility; I96 Gangrene, not elsewhere classified | CPT/HCPCS: 99212 ==

== ENCOUNTER 2020-04-05 05:09 | Emergency (ER) | payer MEDICARE ==
[~2020-04-05] VITALS: Ht 157 cm; Wt 68.0 kg
--- OUTSIDE RECORDS SUMMARY | 2020-04-05 05:15 | XMS REPORT ---
Author Author Cami GLEZ Organization [facility] Address [address] [place] [address] Care Team Providers Care Strand Galvanizer Name Role Phone DON GLEZ Unavailable PROBLEMS Type Condition ICD9-CM Code EVZ96-CW Code Onset Dates Condition S tatus SNOMED Code Problem Generalized anxiety disorder F41.1 A ctive 55284491 Problem Depressive disorder, not elsewhere classified F32. 9 Active 07883983 Problem COPD (chronic obstructive pulmonary disease) J44.9 Active 05175470 Problem Arthritis M19.90 Active 0515618 Problem Skin ulcer of left foot with fat layer exposed L97 .522 Active 38421588 Problem Hypertension I10 Active 7179142 3 Problem Slow transit constipation K59.01 Acti ve 52570858 Problem Back pain M54.9 Active 643124838 Problem Vitamin D deficiency E55.9 Active 12999025 Problem Lumbar radiculopathy M54.16 Active 331547893 Problem Venous insufficiency I87.2 Active 50220827 Problem Basal cell carcinoma (BCC) of skin of right ear C4 4.212 Active 679970204 ALLERGIES No Information ENCOUNTERS Encounter Location Date Diagnosis [facility] [address] [facility] [id number] [address] [place] [id number] Mar, [facility] [address] [facility] [id number] [address] [place] [phone] Mar, [facility] [address] [facility] [id number] [address] [place] [id number] Mar, [place] [address] [facility] [id number] [address] [place] [id number] Mar, Lumbar radiculopathy M54.[address] [id number] [address] Mar, Lumbar radiculopathy M54.16 and Radiculopathy, lumbar region M54.16 [facility] [address] [id number] [address] [place] [id number] 24 Feb, 2020 [facility] [address] [id number] [address] [place] [id number] 19 Feb, 2020 Lumbar radiculopathy M54.16 ; Arthritis M19.90 and Slow transit constipation K59.01 [facility] [address] [id number] [address] [place] [id number] 16 Feb, 2020 [facility] [address] [id number] [address] [place] [id number] 09 Feb, 2020 Back pain M54.9 [facility] [address] [id number] [address] [place] [id number] 08 Feb, 2020 Radiculopathy, lumbar region M54.16 and Lumbar radiculopathy M54.[address] [id number] [address] 04 Feb, 2020 Radiculopathy, lumbar region M54.16 and Lumbar radiculopathy M54.16 [facility] [address] [id number] [address] [place] [id number] January, Slow transit constipation K5 9.01 [facility] [address] [id number] [address] [place] [id number] January, [facility] [address] [id number] [address] [place] [id number] January, Lumbar radiculopathy M54.16 [facility] [address] [id number] [address] [place] [id number] January, Radiculopathy, lumbar region M54.16 and Lumbar radiculopathy M54.16 [facility] [address] [id number] [address] [place] [id number] 24 Dec, [address] [id number] [address] 24 Dec, 2019 [facility] [address] [id number] [address] [place] [id number] 14 Dec, 2019 Radiculopathy, lumbar region M54.16 [facility] [address] [facility] [address] [id number] [address] 14 Dec, 2019 Radiculopathy, lumbar region M54.16 [facility] [address] [id number] [address] [place] [id number] 09 Dec, 2019 Lumbar radiculopathy M54.16 [facility] [address] [id number] [address] [place] [phone] 02 Dec, 2019 [facility] [address] [id number] [address] [place] [id number] 20 Nov, 2019 [facility] [address] [id number] [address] [place] [id number] 18 Nov, 2019 [facility] [address] [id number] [address] [place] [id number] 17 Nov, 2019 Weight loss R63.4 ; Skin ulc er of left foot with fat layer exposed L97.522 ; Basal cell carcinoma (BCC) of skin of right ear C44.212 ; Hypertension I10 and Lumbar radiculopathy M54.16 [facility] [address] [id number] [address] [place] [id number] 11 Nov, 2019 Back pain M54.9 and Radiculo peg, lumbar region M54.16 [facility] [address] [id number] [address] [place] [id number] 20 Oct, 2019 Radiculopathy, lumbar region M54.16 [facility] [address] [id number] [address] [place] [id number] 19 Oct, 2019 [facility] [address] [id number] [address] [place] [id number] 11 Oct, 2019 Back pain M54.9 [facility] [address] [id number] [address] [place] [id number] 10 Oct, 2019 [facility] [address] [id number] [address] [place] [id number] 06 Oct, 2019 Skin sore L98.9 [facility] [address] [id number] [address] [place] [id number] 24 Sep, 2019 Radiculopathy, lumbar region M54.16 [facility] [address] [id number] [address] [place] [id number] 15 Sep, 2019 Back pain M54.9 [facility] [address] [id number] [address] [place] [id number] 14 Sep, 2019 Generalized anxiety disorder F41.1 [facility] [address] [id number] [address] [place] [id number] Aug, Radiculopathy, lumbar region M54.16 [facility] [address] [id number] [address] [place] [id number] Aug, Back pain M54.9 [facility] [address] [id number] [address] [place] [id number] Aug, Lumbar radiculopathy M54.16 ; Generalized anxiety disorder F41.1 and Drug-induced constipation K59.03 [facility] [address] [id number] [address] [place] [id number] Jul, Radiculopathy, lumbar region M54.16 [facility] [address] [id number] [address] [place] [id number] Jul, [facility] [address] [id number] [address] [place] [id number] Jul, [facility] [address] [id number] [address] [place] [id number] Jul, Back pain M54.9 [facility] [address] [id number] [address] [place] [address] Jul, Radiculopathy, lumbar region M54.16 [facility] [address] [id number] [address] [place] [id number] Jul, Radiculopathy, lumbar region M54.16 [facility] [address] [id number] [address] [place] [phone] Jun, Back pain M54.9 [facility] [address] [id number] [address] [place] [id number] Jun, [facility] [address] [id number] [address] [place] [address] Jun, Radiculopathy, lumbar region M54.16 [facility] [address] [id number] [address] [place] [phone] Jun, [facility] [address] [id number] [address] [place] [phone] May, Back pain M54.9 [facility] [address] [id number] [address] [place] [phone] May, Cellulitis of other specifie d site L03.818 ; Dermatitis L30.9 and Lumbar radiculopathy M54.16 [facility] [address] [id number] [address] [place] [phone] May, [facility] [address] [id number] [address] [place] [phone] May, Back pain M54.9 [facility] [address] [id number] [address] [place] [phone] May, [facility] [address] [id number] [address] [place] [phone] May, Back pain M54.9 [facility] [address] [id number] [address] [place] [phone] Apr, [facility] [address] [id number] [address] [place] [id number] 08 Apr, 2019 Back pain M54.9 [facility] [address] [facility] [id number] [address] [place] [id number] Apr, Hyponatremia E87.1 [facility] [address] [facility] [id number] [address] [place] [phone] Apr, Hyponatremia E87.1 [facility] [address] [facility] [id number] [address] [place] [phone] Mar, Arthritis M19.90 ; Impacted cerumen of right ear H61.21 and Hypertension I10 [facility] [id number] [place] [id number] Mar, [facility] [address] [facility] [id number] [address] [place] [phone] Mar, Back pain M54.9 [facility] [address] [facility] [id number] [address] [place] [phone] Feb, Back pain M54.9 [facility] [address] [id number] [address] [place] [phone] Feb, [facility] [address] [facility] [id number] [address] [place] [id number] Feb, Dermatitis L30.9 [facility] [address] [facility] [id number] [address] [place] [id number] January, Dermatitis L30.9 [facility] [address] [facility] [id number] [address] [place] [phone] January, [facility] [address] [facility] [id number] [address] [place] [phone] January, Back pain M54.9 [facility] [address] [facility] [id number] [address] [place] [id number] Dec, [facility] [address] [facility] [id number] [address] [place] [id number] Dec, Back pain M54.9 [facility] [address] [id number] [address] [place] [id number] Dec, Lumbar radiculopathy M54.16 ; Arthritis M19.90 and Dyshydrosis L30.1 [facility] [address] [id number] [address] [place] [phone] Nov, Back pain M54.9 [facility] [address] [id number] [address] [place] [id number] Nov, [facility] [address] [id number] [address] [place] [phone] Oct, [facility] [address] [id number] [address] [place] [phone] Oct, Back pain M54.9 [facility] [address] [id number] [address] [place] [phone] Oct, [facility] [address] [id number] [address] [place] [phone] Oct, [facility] [address] [id number] [address] [place] [id number] Sep, Back pain M54.9 [facility] [address] [id number] [address] [place] [phone] Sep, [facility] [address] [id number] [address] [place] [phone] Aug, Back pain M54.9 [facility] [address] [id number] [address] [place] [id number] Aug, Encounter for immunization Z 23 ; Arthritis M19.90 and Generalized anxiety disorder F41.1 [facility] [address] [id number] [address] [place] [id number] Aug, [facility] [address] [facility] [id number] [address] [place] [phone] Aug, [facility] [address] [id number] [address] [place] [id number] Jul, Back pain M54.9 [facility] [address] [id number] [address] [place] [phone] Jul, [facility] [address] [id number] [address] [place] [phone] Jul, [facility] [address] [id number] [address] [place] [phone] Jun, Back pain M54.9 [facility] [address] [id number] [address] [place] [phone] Jun, [facility] [address] [id number] [address] [place] [id number] Jun, Back pain M54.9 [facility] [address] [id number] [address] [place] [id number] 11 May, 2018 Lumbar radiculopathy M54.16 ; Hypertension I10 and Generalized anxiety disorder F41.1 [facility] [address] [id number] [address] [place] [phone] 06 May, 2018 Back pain M54.9 [facility] [address] [id number] [address] [place] [phone] Apr, [facility] [address] [id number] [address] [place] [phone] Apr, [facility] [address] [id number] [address] [place] [phone] Apr, Back pain M54.9 [facility] [address] [id number] [address] [place] [id number] Mar, Back pain M54.9 [facility] [address] [id number] [address] [place] [phone] Feb, [facility] [address] [id number] [address] [place] [phone] Feb, [facility] [address] [id number] [address] [place] [id number] 15 Feb, 2018 [facility] [address] [id number] [address] [place] [phone] Feb, Back pain M54.9 [facility] [address] [id number] [address] [place] [id number] Feb, Back pain M54.9 ; Hypertensi on I10 ; Generalized anxiety disorder F41.1 and Venous insufficiency I87.2 [facility] [address] [id number] [address] [place] [phone] January, [facility] [address] [id number] [address] [place] [id number] January, Back pain M54.9 [facility] [address] [id number] [address] [place] [id number] Dec, [facility] [address] [id number] [address] [place] [phone] Dec, Back pain M54.9 [facility] [address] [id number] [address] [place] [phone] Nov, Back pain M54.9 [facility] [address] [id number] [address] [place] [phone] Nov, [facility] [address] [id number] [address] [place] [phone] Nov, Lumbar radiculopathy M54.16 ; Hypertension I10 ; Arthritis M19.90 and Back pain M54.9 [facility] [address] [id number] [address] [place] [phone] Oct, Back pain M54.9 [facility] [address] [id number] [address] [place] [phone] Oct, [facility] [address] [id number] [address] [place] [phone] Sep, Back pain M54.9 [facility] [address] [id number] [address] [place] [phone] Sep, [facility] [address] [id number] [address] [place] [id number] Aug, Back pain M54.9 [facility] [address] [id number] [address] [place] [id number] Jul, Back pain M54.9 [facility] [address] [id number] [address] [place] [id number] Jul, Encounter for immunization Z 23 ; Back pain M54.9 ; Hypertension I10 and Lumbar radiculopathy M54.16 [facility] [address] [id number] [address] [place] [id number] Jul, Back pain M54.9 [facility] [address] [id number] [address] [place] [id number] Jun, Vitamin D deficiency E55.9 [facility] [address] [id number] [address] [place] [phone] Jun, Back pain M54.9 [facility] [address] [id number] [address] [place] [phone] May, [facility] [address] [id number] [address] [place] [phone] May, [facility] [address] [id number] [address] [place] [phone] May, [facility] [address] [id number] [address] [place] [id number] May, Back pain M54.9 [facility] [address] [facility] [id number] [address] [place] [id number] Apr, Back pain M54.9 ; Hypertensi on I10 ; Arthritis M19.90 and Generalized anxiety disorder F41.1 [facility] [address] [id number] [address] [place] [id number] 08 Apr, 2017 Back pain M54.9 [facility] [address] [id number] [address] [place] [id number] Mar, Back pain M54.9 [facility] [address] [id number] [address] [place] [id number] 10 Mar, 2017 Vitamin D deficiency E55.9 [facility] [address] [id number] [address] [place] [phone] 15 Feb, 2017 Vitamin D deficiency E55.9 [facility] [address] [id number] [address] [place] [id number] 14 Feb, 2017 Vitamin D deficiency E55.9 [facility] [address] [id number] [address] [place] [id number] 13 Feb, 2017 Back pain M54.9 [facility] [address] [id number] [address] [place] [id number] January, Back pain M54.9 [facility] [address] [id number] [address] [place] [id number] January, Arthritis M19.90 [facility] [address] [id number] [address] [place] [phone] January, Vitamin D deficiency E55.9 a nd Arthritis M19.90 [facility] [address] [facility] [id number] [address] [place] [phone] Dec, Medicare annual wellness vis it, initial Z00.00 and Encounter for immunization Z23 [facility] [address] [id number] [address] [place] [id number] Dec, Back pain M54.9 [facility] [address] [id number] [address] [place] [id number] Nov, Back pain M54.9 [facility] [address] [facility] [id number] [address] [place] [phone] Oct, Back pain M54.9 [facility] [address] [id number] [address] [place] [id number] 14 Oct, 2016 COPD (chronic obstructive pu lmonary disease) J44.9 [facility] [address] [id number] [address] [place] [id number] 14 Oct, 2016 [facility] [address] [id number] [address] [place] [id number] 02 Oct, 2016 Hypertension I10 ; Back pain M54.9 and Encounter for immunization Z23 [facility] [address] [id number] [address] [place] [id number] Sep, [facility] [address] [id number] [address] [place] [id number] Sep, Back pain M54.9 [facility] [address] [id number] [address] [place] [id number] Sep, Back pain M54.9 [facility] [address] [id number] [address] [place] [id number] Aug, [facility] [address] [id number] [address] [place] [phone] Aug, Back pain M54.9 [facility] [address] [id number] [address] [place] [id number] Aug, [facility] [address] [id number] [address] [place] [id number] Aug, [facility] [address] [id number] [address] [place] [id number] Aug, Back pain M54.9 [facility] [address] [id number] [address] [place] [id number] Jul, [facility] [address] [id number] [address] [place] [id number] Jul, Back pain M54.9 [facility] [address] [id number] [address] [place] [id number] Jun, Back pain M54.9 ; Hypertensi on I10 ; Generalized anxiety disorder F41.1 and Encounter for immunization Z23 [facility] [address] [id number] [address] [place] [phone] Jun, [facility] [address] [id number] [address] [place] [phone] May, [facility] [address] [id number] [address] [place] [phone] Apr, [facility] [address] [id number] [address] [place] [phone] Apr, [facility] [address] [id number] [address] [place] [phone] Mar, [facility] [address] [id number] [address] [place] [phone] Mar, [facility] [address] [id number] [address] [place] [phone] Mar, [facility] [address] [id number] [address] [place] [phone] Feb, Back pain M54.9 and Hyperten madelyn I10 [facility] [address] [id number] [address] [place] [phone] Feb, Back pain M54.9 [facility] [address] [id number] [address] [place] [phone] Dec, COPD (chronic obstructive pu lmonary disease) J44.9 [facility] [address] [id number] [address] [place] [id number] Dec, [facility] [address] [id number] [address] [place] [phone] Dec, Back pain M54.9 [facility] [address] [id number] [address] [place] [phone] Nov, Back pain M54.9 [facility] [address] [id number] [address] [place] [id number] Nov, COPD (chronic obstructive pu lmonary disease) J44.9 [facility] [address] [id number] [address] [place] [id number] Nov, Hypertension I10 and Back pa in M54.9 [facility] [address] [id number] [address] [place] [id number] Oct, Hypertension I10 and Back pa in M54.9 [facility] [address] [id number] [address] [place] [id number] Oct, Back pain M54.9 [facility] [address] [id number] [address] [place] [phone] Sep, Back pain M54.9 [facility] [address] [id number] [address] [place] [phone] Sep, [facility] [address] [id number] [address] [place] [phone] Sep, [facility] [address] [id number] [address] [place] [id number] Sep, [facility] [address] [id number] [address] [place] [id number] Sep, [facility] [address] [id number] [address] [place] [phone] Aug, [facility] [address] [id number] [address] [place] [phone] Aug, [facility] [address] [id number] [address] [place] [phone] Aug, [facility] [address] [id number] [address] [place] [phone] Aug, [facility] [address] [id number] [address] [place] [id number] Aug, [facility] [facility] [address] [id number] [address] [place] [id number] Jul, [facility] [address] [id number] [address] [place] [id number] Jul, Back pain M54.9 ; Arthritis M19.90 ; Hypertension I10 and Encounter for immunization Z23 [facility] [address] [id number] [address] [place] [id number] Jul, Generalized anxiety disorder F41.1 and Depressive disorder, not elsewhere classified F32.9 [facility] [address] [id number] [address] [place] [id number] Jul, [facility] [address] [id number] [address] [place] [id number] Jul, [facility] [address] [id number] [address] [place] [id number] Jul, [facility] [address] [id number] [address] [place] [id number] Jun, [facility] [address] [id number] [address] [place] [id number] Jun, [facility] [address] [facility] [id number] [address] [place] [id number] 25 May, 2015 [facility] [address] [id number] [address] [place] [phone] May, [facility] [address] [id number] [address] [place] [id number] May, [facility] [address] [id number] [address] [place] [id number] 11 May, 2015 [facility] [address] [facility] [id number] [address] [place] [id number] 10 May, 2015 Benign essential hypertensio n 401.1 ; Anxiety state, unspecified 300.00 ; Back pain 724.5 and Arthritis 716.90 [facility] [address] [id number] [address] [place] [id number] May, [facility] [address] [id number] [address] [place] [phone] Apr, [facility] [address] [id number] [address] [place] [id number] Apr, [facility] [address] [id number] [address] [place] [phone] Apr, [facility] [address] [id number] [address] [place] [phone] Mar, [facility] [address] [id number] [address] [place] [phone] Mar, [facility] [address] [id number] [address] [place] [phone] Mar, [facility] [address] [id number] [address] [place] [phone] Feb, High risk medication use V58 .69 [facility] [address] [id number] [address] [place] [phone] Feb, Benign essential hypertensio n 401.1 ; Anxiety state, unspecified 300.00 and Chronic pain 338.29 [facility] [address] [id number] [address] [place] [phone] Feb, [facility] [address] [id number] [address] [place] [phone] January, [facility] [address] [id number] [address] [place] [id number] January, [facility] [address] [id number] [address] [place] [phone] January, [facility] [address] [id number] [address] [place] [phone] January, [facility] [address] [id number] [address] [place] [phone] Dec, [facility] [address] [id number] [address] [place] [address], [place] [address] Dec, [facility] [address] [id number] [address] [place] [address], [place] [address] Nov, [facility] [address] [id number] [address] [place] [address], [place] [address] Nov, [facility] [address] [id number] [address] [place] [address], [place] [address] Nov, [facility] [address] [id number] [address] [place] [address], [place] [address] Nov, [facility] [address] [id number] [address] [place] [address], [place] [address] Oct, [facility] [address] [id number] [address] [place] [address], [place] [address] Oct, [facility] [address] [id number] [address] [place] [address], [place] [address] Oct, [facility] [address] [id number] [address] [place] [address], [place] [address] Oct, [facility] [address] [id number] [address] [place] [address], [place] [address] Oct, [facility] [address] [id number] [address] [place] [address], [place] [address] Sep, [facility] [address] [id number] [address] [place] [phone] Sep, [facility] [address] [id number] [address] [place] [address], [place] [address] Sep, [facility] [address] [id number] [address] [place] [address], [place] [address] Sep, [facility] [address] [id number] [address] [place] [address], [place] [address] Aug, [facility] [address] [id number] [address] [place] [phone] Aug, [facility] [address] [id number] [address] [place] [address], [place] [address] Aug, [facility] [address] [id number] [address] [place] [address], [place] [address] Aug, [facility] [address] [id number] [address] [place] [address], [place] [address] Aug, [facility] [address] [id number] [address] [place] [address], [place] [address] Aug, [facility] [address] [id number] [address] [place] [address], [place] [address] Jul, [facility] [address] [id number] [address] [place] [address], [place] [address] Jul, [facility] [address] [id number] [address] [place] [address], [place] [address] Jun, [facility] [address] [id number] [address] [place] [address], [place] [address] Jun, [facility] [address] [id number] [address] [place] [address], [place] [address] Jun, [facility] [address] [id number] [address] [place] [address], [place] [address] Jun, [facility] [address] [id number] [address] [place] [address], [place] [address] May, [facility] [address] [id number] [address] [place] [phone] May, [facility] [address] [id number] [address] [place] [address], [place] [address] May, [facility] [address] [id number] [address] [place] [address], [place] [address] May, [facility] [address] [id number] [address] [place] [address], [place] [address] Apr, [facility] [address] [id number] [facility] [place] [address] Apr, [facility] [address] [id number] [facility] [place] [address] Apr, [facility] [address] [id number] [facility] [place] [address] Apr, [facility] [address] [id number] [facility] [place] [address] Apr, [facility] [address] [id number] [address] [place] [address], [place] [address] Apr, [facility] [address] [id number] [address] [place] [address], [place] [address] Mar, [facility] [address] [id number] [address] [place] [address], [place] [address] Mar, [facility] [address] [id number] [address] [place] [address], [place] [address] Mar, [facility] [address] [id number] [address] [place] [address], [place] [address] Mar, [facility] [address] [id number] [address] [place] [address], [place] [address] Feb, [facility] [address] [id number] [address] [place] [address], [place] [address] Feb, [facility] [address] [id number] [address] [place] [address], [place] [address] Feb, [facility] [address] [id number] [address] [place] [address], [place] [address] January, [facility] [address] [id number] [address] [place] [address], [place] [address] January, [facility] [address] [id number] [address] [place] [address], [place] [address] January, [facility] [address] [id number] [address] [place] [address], [place] [address] January, [facility] [address] [id number] [facility] [place] [address] January, [facility] [address] [id number] [address] [place] [address], [place] [address] January, [facility] [address] [id number] [address] [place] [address], [place] [address] January, [facility] [address] [id number] [address] [place] [address], [place] [address] January, [facility] [address] [id number] [address] [place] [address], [place] [address] Dec, [facility] [address] [id number] [address] [place] [address], [place] [address] Dec, [facility] [address] [id number] [address] [place] [address], [place] [address] Dec, [facility] [address] [id number] [address] [place] [address], [place] [address] Dec, [facility] [address] [id number] [address] [place] [address], [place] [address] Dec, [facility] [address] [id number] [address] [place] [address], [place] [address] Dec, [facility] [address] [id number] [address] [place] [address], [place] [address] Dec, [facility] [address] [id number] [address] [place] [address], [place] [address] Nov, [facility] [address] [id number] [address] [place] [address], [place] [address] Nov, [facility] [address] [id number] [address] [place] [address], [place] [address] Nov, [facility] [address] [id number] [address] [place] [address], [place] [address] Nov, [facility] [address] [id number] [address] [place] [address], [place] [address] 18 Nov, 2013 [facility] [address] [id number] [address] [place] [address], [place] [address] 18 Nov, 2013 [facility] [address] [id number] [address] [place] [address], [place] [address] 11 Nov, 2013 [facility] [address] [id number] [address] [place] [address], [place] [address] 11 Nov, 2013 [facility] [address] [id number] [address] [place] [address], [place] [address] 07 Nov, 2013 [facility] [address] [id number] [address] [place] [address], [place] [address] 07 Nov, 2013 [facility] [address] [id number] [address] [place] [address], [place] [address] 07 Nov, 2013 [facility] [address] [id number] [address] [place] [address], [place] [address] 07 Nov, 2013 [facility] [address] [id number] [address] [place] [address], [place] [address] 07 Oct, 2013 [facility] [address] [id number] [address] [place] [address], [place] [address] 07 Oct, 2013 [facility] [address] [id number] [address] [place] [address], [place] [address] 20 Sep, 2013 [facility] [address] [id number] [address] [place] [address], [place] [address] Sep, [facility] [address] [id number] [address] [place] [address], [place] [address] Sep, [facility] [address] [id number] [address] [place] [address], [place] [address] Sep, [facility] [address] [id number] [address] [place] [address], [place] [address] Aug, [facility] [address] [id number] [address] [place] [address], [place] [address] Aug, [facility] [address] [id number] [address] [place] [address], [place] [address] 15 Jul, 2013 [facility] [address] [id number] [address] [place] [address], [place] [address] 15 Jul, 2013 [facility] [address] [id number] [address] [place] [address], [place] [address] 15 Jul, 2013 [facility] [address] [id number] [address] [place] [address], [place] [address] Jul, [facility] [address] [id number] [address] [place] [address], [place] [address] Jun, [facility] [address] [id number] [address] [place] [address], [place] [address] 28 Jun, 2013 [facility] [address] [id number] [address] [place] [address], [place] [address] 18 Jun, 2013 [facility] [address] [id number] [address] [place] [address], [place] [address] 18 Jun, 2013 [facility] [address] [id number] [address] [place] [address], [place] [address] 14 Jun, 2013 [facility] [address] [id number] [address] [place] [address], [place] [address] 14 Jun, 2013 [facility] [address] [id number] [address] [place] [address], [place] [address] 20 May, 2013 [facility] [address] [id number] [address] [place] [address], [place] [address] 18 May, 2013 [facility] [address] [id number] [address] [place] [address], [place] [address] 16 May, 2013 [facility] [address] [id number] [address] [place] [address], [place] [address] Apr, [facility] [address] [id number] [address] [place] [address], [place] [address] Apr, [facility] [address] [id number] [address] [place] [address], [place] [address] Apr, [facility] [address] [id number] [address] [place] [address], [place] [address] Mar, [facility] [address] [id number] [address] [place] [address], [place] [address] Mar, [facility] [address] [id number] [address] [place] [address], [place] [address] Feb, [facility] [address] [id number] [address] [place] [address], [place] [address] Feb, [facility] [address] [id number] [address] [place] [address], [place] [address] Feb, [facility] [address] [id number] [address] [place] [address], [place] [address] January, [facility] [address] [id number] [address] [place] [address], [place] [address] January, [facility] [address] [id number] [address] [place] [address], [place] [address] January, [facility] [address] [id number] [address] [place] [address], [place] [address] Dec, [facility] [address] [id number] [address] [place] [address], [place] [address] Dec, [facility] [address] [id number] [address] [place] [address], [place] [address] Dec, [facility] [address] [id number] [address] [place] [address], [place] [address] Nov, [facility] [address] [id number] [address] [place] [address], [place] [address] 14 Nov, 2012 [facility] [address] [id number] [address] [place] [address], [place] [address] Nov, [facility] [address] [id number] [address] [place] [address], [place] [address] 18 Oct, 2012 [facility] [address] [id number] [address] [place] [address], [place] [address] 14 Oct, 2012 [facility] [address] [id number] [address] [place] [address], [place] [address] Sep, [facility] [address] [id number] [address] [place] [address], [place] [address] Sep, [facility] [address] [id number] [address] [place] [address], [place] [address] Sep, [facility] [address] [id number] [address] [place] [address], [place] [address] Aug, [facility] [address] [id number] [address] [place] [address], [place] [address] Aug, [facility] [address] [id number] [address] [place] [address], [place] [address] Aug, [facility] [address] [id number] [address] [place] [address], [place] [address] Aug, [facility] [address] [id number] [address] [place] [address], [place] [address] Aug, [facility] [address] [id number] [address] [place] [address], [place] [address] Jul, [facility] [address] [id number] [address] [place] [address], [place] [address] Jul, [facility] [address] [id number] [address] [place] [address], [place] [address] Jul, [facility] [address] [id number] [address] [place] [address], [place] [address] Jul, [facility] [address] [id number] [address] [place] [address], [place] [address] Jul, [facility] [address] [id number] [address] [place] [address], [place] [address] Jul, [facility] [address] [id number] [address] [place] [address], [place] [address] 31 Jun, 2012 [facility] [address] [id number] [address] [place] [address], [place] [address] 31 Jun, 2012 [facility] [address] [id number] [address] [place] [address], [place] [address] 29 Jun, 2012 [facility] [address] [id number] [address] [place] [address], [place] [address] 04 Jun, 2012 [facility] [address] [id number] [address] [place] [address], [place] [address] 13 May, 2012 [facility] [address] [id number] [address] [place] [address], [place] [address] 06 May, 2012 [facility] [address] [id number] [address] [place] [address], [place] [address] 16 Apr, 2012 [facility] [address] [id number] [address] [place] [address], [place] [address] 15 Apr, 2012 [facility] [address] [id number] [address] [place] [address], [place] [address] 14 Apr, 2012 [facility] [address] [id number] [address] [place] [address], [place] [address] 17 Mar, 2012 [facility] [address] [id number] [address] [place] [address], [place] [address] Mar, [facility] [address] [id number] [address] [place] [address], [place] [address] Feb, [facility] [address] [id number] [address] [place] [address], [place] [id number] 24 Jan, 2012 [facility] [address] [id number] [address] [place] [address], [place] [id number] January, [facility] [address] [id number] [address] [place] [address], [place] [id number] Dec, [facility] [address] [id number] [address] [place] [address], [place] [id number] Dec, [facility] [address] [id number] [address] [place] [address], [place] [id number] 05 Dec, 2011 [facility] [address] [id number] [address] [place] [address], [place] [id number] 04 Dec, 2011 [facility] [address] [id number] [address] [place] [address], [place] [id number] 30 Nov, 2011 [facility] [address] [id number] [address] [place] [address], [place] [id number] 23 Nov, 2011 [facility] [address] [id number] [address] [place] [address], [place] [id number] 15 Nov, 2011 [facility] [address] [id number] [address] [place] [address], [place] [id number] 02 Nov, 2011 [facility] [address] [id number] [address] [place] [address], [place] [id number] 14 Oct, 2011 [facility] [address] [id number] [address] [place] [address], [place] [id number] 09 Oct, 2011 [facility] [address] [id number] [address] [place] [address], [place] [id number] Sep, [facility] [address] [id number] [address] [place] [address], [place] [id number] 30 Aug, 2011 [facility] [address] [id number] [address] [place] [address], [place] [address] Aug, [facility] [address] [id number] [address] [place] [address], [place] [id number] Aug, [facility] [address] [id number] [address] [place] [address], [place] [id number] 29 Jul, 2011 [facility] [address] [id number] [address] [place] [address], [place] [id number] Jul, [facility] [address] [id number] [address] [place] [address], [place] [id number] Jul, [facility] [address] [id number] [address] [place] [address], [place] [id number] 20 Jun, 2011 [facility] [address] [id number] [address] [place] [id number] 14 Jun, 2011 [facility] [address] [id number] [address] [place] [id number] 13 Jun, 2011 [facility] [address] [id number] [address] [place] [id number] 13 Jun, 2011 [facility] [address] [id number] [address] [place] [id number] 19 May, 2011 [facility] [address] [id number] [address] [place] [id number] 17 Jan, 2011 [facility] [address] [id number] [address] [place] [id number] 28 Aug, 2010 [facility] [address] [id number] [address] [place] [id number] Aug, [facility] [address] [id number] [address] [place] [id number] Aug, [facility] [address] [id number] [address] [place] [id number] Aug, [facility] [address] [id number] [address] [place] [id number] Jul, [facility] [address] [id number] [address] [place] [id number] Jul, [facility] [address] [id number] [address] [place] [id number] 15 Jun, 2010 [facility] [address] [id number] [address] [place] [id number] 15 Jun, 2010 [facility] [address] [id number] [address] [place] [id number] 16 May, 2010 [facility] [address] [id number] [address] [place] [id number] January, IMMUNIZATIONS No Known Immunizations SOCIAL HISTORY [...]
--- OUTSIDE RECORDS SUMMARY | 2020-04-05 05:15 | XMS REPORT ---
Author Author Cami GLEZ Organization [facility] Address [address] [place] [address] Care Team Providers Care Cota Name Role Phone DON GLEZ Unavailable PROBLEMS Type Condition ICD9-CM Code ZUM88-RH Code Onset Dates Condition S tatus SNOMED Code Problem Generalized anxiety disorder F41.1 A ctive 24212590 Problem Depressive disorder, not elsewhere classified F32. 9 Active 12432717 Problem COPD (chronic obstructive pulmonary disease) J44.9 Active 96525429 Problem Arthritis M19.90 Active 2638086 Problem Skin ulcer of left foot with fat layer exposed L97 .522 Active 12597244 Problem Hypertension I10 Active 6421731 3 Problem Slow transit constipation K59.01 Acti ve 68846142 Problem Back pain M54.9 Active 895404439 Problem Vitamin D deficiency E55.9 Active 67262012 Problem Lumbar radiculopathy M54.16 Active 468543537 Problem Venous insufficiency I87.2 Active 64524220 Problem Basal cell carcinoma (BCC) of skin of right ear C4 4.212 Active 435307005 ALLERGIES No Information ENCOUNTERS Encounter Location Date Diagnosis [facility] [address] [facility] [id number] [address] [place] [phone] Mar, [facility] [address] [facility] [id number] [address] [place] [phone] Mar, [facility] [address] [facility] [id number] [address] [place] [phone] Mar, [place] [address] [facility] [id number] [address] [place] [id number] Mar, Lumbar radiculopathy M54.[address] [id number] [address] Mar, Lumbar radiculopathy M54.16 and Radiculopathy, lumbar region M54.16 [facility] [address] [id number] [address] [place] [id number] 24 Feb, 2020 [facility] [address] [id number] [address] [place] [id number] 19 Feb, 2020 Lumbar radiculopathy M54.16 ; Arthritis M19.90 and Slow transit constipation K59.01 [facility] [address] [id number] [address] [place] [id number] 16 Feb, 2020 [facility] [address] [id number] [address] [place] [id number] 09 Feb, 2020 Back pain M54.9 [facility] [address] [id number] [address] [place] [id number] 08 Feb, 2020 Radiculopathy, lumbar region M54.16 and Lumbar radiculopathy M54.[address] [id number] [address] 04 Feb, 2020 Radiculopathy, lumbar region M54.16 and Lumbar radiculopathy M54.16 [facility] [address] [id number] [address] [place] [id number] January, Slow transit constipation K5 9.01 [facility] [address] [id number] [address] [place] [phone] January, [facility] [address] [id number] [address] [place] [phone] January, Lumbar radiculopathy M54.16 [facility] [address] [id number] [address] [place] [id number] January, Radiculopathy, lumbar region M54.16 and Lumbar radiculopathy M54.16 [facility] [address] [id number] [address] [place] [id number] 24 Dec, [address] [id number] [place] [address] 24 Dec, 2019 [facility] [address] [id number] [address] [place] [id number] 14 Dec, 2019 Radiculopathy, lumbar region M54.16 [facility] [address] [facility] [address] [id number] [place] [address] 14 Dec, 2019 Radiculopathy, lumbar region M54.16 [facility] [address] [id number] [address] [place] [id number] 09 Dec, 2019 Lumbar radiculopathy M54.16 [facility] [address] [id number] [address] [place] [id number] 02 Dec, 2019 [facility] [address] [id number] [address] [place] [id number] 20 Nov, 2019 [facility] [address] [id number] [address] [place] [id number] 18 Nov, 2019 [facility] [address] [id number] [address] [place] [phone] 17 Nov, 2019 Weight loss R63.4 ; Skin ulc er of left foot with fat layer exposed L97.522 ; Basal cell carcinoma (BCC) of skin of right ear C44.212 ; Hypertension I10 and Lumbar radiculopathy M54.16 [facility] [address] [id number] [address] [place] [id number] 11 Nov, 2019 Back pain M54.9 and Radiculo peg, lumbar region M54.16 [facility] [address] [id number] [address] [place] [id number] 20 Oct, 2019 Radiculopathy, lumbar region M54.16 [facility] [address] [id number] [address] [place] [id number] 19 Oct, 2019 [facility] [address] [id number] [address] [place] [id number] 11 Oct, 2019 Back pain M54.9 [facility] [address] [id number] [address] [place] [id number] 10 Oct, 2019 [facility] [address] [id number] [address] [place] [id number] 06 Oct, 2019 Skin sore L98.9 [facility] [address] [id number] [address] [place] [id number] 24 Sep, 2019 Radiculopathy, lumbar region M54.16 [facility] [address] [id number] [address] [place] [id number] 15 Sep, 2019 Back pain M54.9 [facility] [address] [id number] [address] [place] [phone] 14 Sep, 2019 Generalized anxiety disorder F41.1 [facility] [address] [id number] [address] [place] [id number] Aug, Radiculopathy, lumbar region M54.16 [facility] [address] [id number] [address] [place] [phone] Aug, Back pain M54.9 [facility] [address] [id number] [address] [place] [id number] Aug, Lumbar radiculopathy M54.16 ; Generalized anxiety disorder F41.1 and Drug-induced constipation K59.03 [facility] [address] [id number] [address] [place] [id number] Jul, Radiculopathy, lumbar region M54.16 [facility] [address] [id number] [address] [place] [phone] Jul, [facility] [address] [id number] [address] [place] [phone] Jul, [facility] [address] [id number] [address] [place] [id number] Jul, Back pain M54.9 [facility] [address] [id number] [address] [place] [id number] Jul, Radiculopathy, lumbar region M54.16 [facility] [address] [id number] [address] [place] [id number] Jul, Radiculopathy, lumbar region M54.16 [facility] [address] [id number] [address] [place] [id number] Jun, Back pain M54.9 [facility] [address] [id number] [address] [place] [phone] Jun, [facility] [address] [id number] [address] [place] [id number] Jun, Radiculopathy, lumbar region M54.16 [facility] [address] [id number] [address] [place] [id number] Jun, [facility] [address] [id number] [address] [place] [id number] May, Back pain M54.9 [facility] [address] [id number] [address] [place] [id number] May, Cellulitis of other specifie d site L03.818 ; Dermatitis L30.9 and Lumbar radiculopathy M54.16 [facility] [address] [id number] [address] [place] [id number] May, [facility] [address] [id number] [address] [place] [id number] May, Back pain M54.9 [facility] [address] [id number] [address] [place] [id number] May, [facility] [address] [id number] [address] [place] [id number] May, Back pain M54.9 [facility] [address] [id number] [address] [place] [id number] Apr, [facility] [address] [id number] [address] [place] [id number] 08 Apr, 2019 Back pain M54.9 [facility] [address] [facility] [id number] [address] [place] [id number] Apr, Hyponatremia E87.1 [facility] [address] [facility] [id number] [address] [place] [id number] Apr, Hyponatremia E87.1 [facility] [address] [facility] [id number] [address] [place] [id number] Mar, Arthritis M19.90 ; Impacted cerumen of right ear H61.21 and Hypertension I10 [facility] [id number] [place] [id number] Mar, [facility] [address] [facility] [id number] [address] [place] [id number] Mar, Back pain M54.9 [facility] [address] [facility] [id number] [address] [place] [id number] Feb, Back pain M54.9 [facility] [address] [id number] [address] [place] [id number] Feb, [facility] [address] [facility] [id number] [address] [place] [phone] Feb, Dermatitis L30.9 [facility] [address] [facility] [id number] [address] [place] [id number] January, Dermatitis L30.9 [facility] [address] [facility] [id number] [address] [place] [phone] January, [facility] [address] [facility] [id number] [address] [place] [phone] January, Back pain M54.9 [facility] [address] [facility] [id number] [address] [place] [phone] Dec, [facility] [address] [facility] [id number] [address] [place] [id number] Dec, Back pain M54.9 [facility] [address] [id number] [address] [place] [id number] Dec, Lumbar radiculopathy M54.16 ; Arthritis M19.90 and Dyshydrosis L30.1 [facility] [address] [id number] [address] [place] [id number] Nov, Back pain M54.9 [facility] [address] [id number] [address] [place] [id number] Nov, [facility] [address] [id number] [address] [place] [id number] Oct, [facility] [address] [id number] [address] [place] [id number] Oct, Back pain M54.9 [facility] [address] [id number] [address] [place] [phone] Oct, [facility] [address] [id number] [address] [place] [id number] Oct, [facility] [place] [address] [id number] [address] [place] [phone] Sep, Back pain M54.9 [facility] [place] [address] [id number] [address] [place] [id number] Sep, [facility] [place] [address] [id number] [address] [place] [id number] Aug, Back pain M54.9 [facility] [place] [address] [id number] [address] [place] [id number] Aug, Encounter for immunization Z 23 ; Arthritis M19.90 and Generalized anxiety disorder F41.1 [facility] [place] [address] [id number] [address] [place] [id number] Aug, [facility] [address] [facility] [id number] [address] [place] [phone] Aug, [facility] [address] [id number] [address] [place] [phone] Jul, Back pain M54.9 [facility] [address] [id number] [address] [place] [id number] Jul, [facility] [address] [id number] [address] [place] [phone] Jul, [facility] [address] [id number] [address] [place] [id number] Jun, Back pain M54.9 [facility] [address] [id number] [address] [place] [phone] Jun, [facility] [place] [address] [id number] [address] [place] [phone] Jun, Back pain M54.9 [facility] [address] [id number] [address] [place] [id number] 11 May, 2018 Lumbar radiculopathy M54.16 ; Hypertension I10 and Generalized anxiety disorder F41.1 [facility] [place] [address] [id number] [address] [place] [id number] 06 May, 2018 Back pain M54.9 [facility] [address] [id number] [address] [place] [id number] Apr, [facility] [place] [address] [id number] [address] [place] [id number] Apr, [facility] [place] [address] [id number] [address] [place] [id number] Apr, Back pain M54.9 [facility] [address] [id number] [address] [place] [id number] Mar, Back pain M54.9 [facility] [address] [id number] [address] [place] [phone] Feb, [facility] [place] [address] [id number] [address] [place] [id number] Feb, [facility] [place] [address] [id number] [address] [place] [id number] 15 Feb, 2018 [facility] [address] [id number] [address] [place] [id number] Feb, Back pain M54.9 [facility] [address] [id number] [address] [place] [phone] Feb, Back pain M54.9 ; Hypertensi on I10 ; Generalized anxiety disorder F41.1 and Venous insufficiency I87.2 [facility] [address] [id number] [address] [place] [id number] January, [facility] [address] [id number] [address] [place] [id number] January, Back pain M54.9 [facility] [address] [id number] [address] [place] [id number] Dec, [facility] [address] [id number] [address] [place] [id number] Dec, Back pain M54.9 [facility] [address] [id number] [address] [place] [id number] Nov, Back pain M54.9 [facility] [address] [id number] [address] [place] [id number] Nov, [facility] [address] [id number] [address] [place] [id number] Nov, Lumbar radiculopathy M54.16 ; Hypertension I10 ; Arthritis M19.90 and Back pain M54.9 [facility] [address] [id number] [address] [place] [id number] Oct, Back pain M54.9 [facility] [address] [id number] [address] [place] [id number] Oct, [facility] [address] [id number] [address] [place] [id number] Sep, Back pain M54.9 [facility] [address] [id number] [address] [place] [id number] Sep, [facility] [address] [id number] [address] [place] [id number] Aug, Back pain M54.9 [facility] [address] [id number] [address] [place] [id number] Jul, Back pain M54.9 [facility] [address] [id number] [address] [place] [id number] Jul, Encounter for immunization Z 23 ; Back pain M54.9 ; Hypertension I10 and Lumbar radiculopathy M54.16 [facility] [place] [address] [id number] [address] [place] [id number] Jul, Back pain M54.9 [facility] [place] [address] [id number] [address] [place] [phone] Jun, Vitamin D deficiency E55.9 [facility] [place] [address] [id number] [address] [place] [phone] Jun, Back pain M54.9 [facility] [place] [address] [id number] [address] [place] [id number] May, [facility] [place] [address] [id number] [address] [place] [id number] May, [facility] [place] [address] [id number] [address] [place] [id number] May, [facility] [place] [address] [id number] [address] [place] [phone] May, Back pain M54.9 [facility] [place] [address] [facility] [id number] [address] [place] [phone] Apr, Back pain M54.9 ; Hypertensi on I10 ; Arthritis M19.90 and Generalized anxiety disorder F41.1 [facility] [place] [address] [id number] [address] [place] [id number] 08 Apr, 2017 Back pain M54.9 [facility] [place] [address] [id number] [address] [place] [id number] Mar, Back pain M54.9 [facility] [place] [address] [id number] [address] [place] [id number] 10 Mar, 2017 Vitamin D deficiency E55.9 [facility] [place] [address] [id number] [address] [place] [phone] 15 Feb, 2017 Vitamin D deficiency E55.9 [facility] [place] [address] [id number] [address] [place] [id number] 14 Feb, 2017 Vitamin D deficiency E55.9 [facility] [place] [address] [id number] [address] [place] [phone] 13 Feb, 2017 Back pain M54.9 [facility] [place] [address] [id number] [address] [place] [phone] January, Back pain M54.9 [facility] [place] [address] [id number] [address] [place] [id number] January, Arthritis M19.90 [facility] [place] [address] [id number] [address] [place] [id number] January, Vitamin D deficiency E55.9 a nd Arthritis M19.90 [facility] [place] [address] [facility] [id number] [address] [place] [phone] Dec, Medicare annual wellness vis it, initial Z00.00 and Encounter for immunization Z23 [facility] [place] [address] [id number] [address] [place] [id number] Dec, Back pain M54.9 [facility] [place] [address] [id number] [address] [place] [phone] Nov, Back pain M54.9 [facility] [place] [address] [facility] [id number] [address] [place] [phone] Oct, Back pain M54.9 [facility] [place] [address] [id number] [address] [place] [phone] 14 Oct, 2016 COPD (chronic obstructive pu lmonary disease) J44.9 [facility] [place] [address] [id number] [address] [place] [id number] 14 Oct, 2016 [facility] [place] [address] [id number] [address] [place] [id number] 02 Oct, 2016 Hypertension I10 ; Back pain M54.9 and Encounter for immunization Z23 [facility] [address] [id number] [address] [place] [id number] Sep, [facility] [address] [id number] [address] [place] [id number] Sep, Back pain M54.9 [facility] [address] [id number] [address] [place] [id number] Sep, Back pain M54.9 [facility] [address] [id number] [address] [place] [id number] Aug, [facility] [place] [address] [id number] [address] [place] [id number] Aug, Back pain M54.9 [facility] [address] [id number] [address] [place] [id number] Aug, [facility] [place] [address] [id number] [address] [place] [phone] Aug, [facility] [place] [address] [id number] [address] [place] [id number] Aug, Back pain M54.9 [facility] [address] [id number] [address] [place] [id number] Jul, [facility] [place] [address] [id number] [address] [place] [id number] Jul, Back pain M54.9 [facility] [place] [address] [id number] [address] [place] [id number] Jun, Back pain M54.9 ; Hypertensi on I10 ; Generalized anxiety disorder F41.1 and Encounter for immunization Z23 [facility] [place] [address] [id number] [address] [place] [phone] Jun, [facility] [place] [address] [id number] [address] [place] [phone] May, [facility] [place] [address] [id number] [address] [place] [phone] Apr, [facility] [place] [address] [id number] [address] [place] [phone] Apr, [facility] [place] [address] [id number] [address] [place] [phone] Mar, [facility] [place] [address] [id number] [address] [place] [phone] Mar, [facility] [place] [address] [id number] [address] [place] [phone] Mar, [facility] [place] [address] [id number] [address] [place] [id number] Feb, Back pain M54.9 and Hyperten madelyn I10 [facility] [address] [id number] [address] [place] [id number] Feb, Back pain M54.9 [facility] [place] [address] [id number] [address] [place] [phone] Dec, COPD (chronic obstructive pu lmonary disease) J44.9 [facility] [place] [address] [id number] [address] [place] [phone] Dec, [facility] [place] [address] [id number] [address] [place] [id number] Dec, Back pain M54.9 [facility] [place] [address] [id number] [address] [place] [id number] Nov, Back pain M54.9 [facility] [place] [address] [id number] [address] [place] [id number] Nov, COPD (chronic obstructive pu lmonary disease) J44.9 [facility] [place] [address] [id number] [address] [place] [id number] Nov, Hypertension I10 and Back pa in M54.9 [facility] [place] [address] [id number] [address] [place] [phone] Oct, Hypertension I10 and Back pa in M54.9 [facility] [place] [address] [id number] [address] [place] [id number] Oct, Back pain M54.9 [facility] [place] [address] [id number] [address] [place] [id number] Sep, Back pain M54.9 [facility] [place] [address] [id number] [address] [place] [phone] Sep, [facility] [place] [address] [id number] [address] [place] [phone] Sep, [facility] [place] [address] [id number] [address] [place] [phone] Sep, [facility] [place] [address] [id number] [address] [place] [id number] Sep, [facility] [place] [address] [id number] [address] [place] [id number] Aug, [facility] [place] [address] [id number] [address] [place] [id number] Aug, [facility] [place] [address] [id number] [address] [place] [id number] Aug, [facility] [place] [address] [id number] [address] [place] [phone] Aug, [facility] [place] [address] [id number] [address] [place] [id number] Aug, [facility] [place] [address] [id number] [address] [place] [id number] Jul, [facility] [place] [address] [id number] [address] [place] [id number] Jul, Back pain M54.9 ; Arthritis M19.90 ; Hypertension I10 and Encounter for immunization Z23 [facility] [place] [address] [id number] [address] [place] [id number] Jul, Generalized anxiety disorder F41.1 and Depressive disorder, not elsewhere classified F32.9 [facility] [place] [address] [id number] [address] [place] [id number] Jul, [facility] [place] [address] [id number] [address] [place] [phone] Jul, [facility] [place] [address] [id number] [address] [place] [phone] Jul, [facility] [place] [address] [id number] [address] [place] [id number] Jun, [facility] [place] [address] [id number] [address] [place] [id number] Jun, [facility] [place] [address] [facility] [id number] [address] [place] [id number] 25 May, 2015 [facility] [place] [address] [id number] [address] [place] [phone] May, [facility] [place] [address] [id number] [address] [place] [id number] May, [facility] [place] [address] [id number] [address] [place] [id number] 11 May, 2015 [facility] [place] [address] [facility] [id number] [address] [place] [id number] 10 May, 2015 Benign essential hypertensio n 401.1 ; Anxiety state, unspecified 300.00 ; Back pain 724.5 and Arthritis 716.90 [facility] [place] [address] [id number] [address] [place] [id number] May, [facility] [place] [address] [id number] [address] [place] [id number] Apr, [facility] [place] [address] [id number] [address] [place] [id number] Apr, [facility] [place] [address] [id number] [address] [place] [id number] Apr, [facility] [place] [address] [id number] [address] [place] [phone] Mar, [facility] [place] [address] [id number] [address] [place] [phone] Mar, [facility] [place] [address] [id number] [address] [place] [phone] Mar, [facility] [place] [address] [id number] [address] [place] [id number] Feb, High risk medication use V58 .69 [facility] [place] [address] [id number] [address] [place] [id number] Feb, Benign essential hypertensio n 401.1 ; Anxiety state, unspecified 300.00 and Chronic pain 338.29 [facility] [address] [id number] [address] [place] [id number] Feb, [facility] [place] [address] [id number] [address] [place] [id number] January, [facility] [place] [address] [id number] [address] [place] [id number] January, [facility] [place] [address] [id number] [address] [place] [phone] January, [facility] [place] [address] [id number] [address] [place] [id number] January, [facility] [place] [address] [id number] [address] [place] [phone] Dec, [facility] [address] [id number] [address] [place] [address], [place] [id number] Dec, [facility] [address] [id number] [address] [place] [address], [place] [id number] Nov, [facility] [address] [id number] [address] [place] [address], [place] [id number] Nov, [facility] [address] [id number] [address] [place] [address], [place] [address] Nov, [facility] [address] [id number] [address] [place] [address], [place] [address] Nov, [facility] [address] [id number] [address] [place] [address], [place] [id number] Oct, [facility] [address] [id number] [address] [place] [address], [place] [address] Oct, [facility] [address] [id number] [address] [place] [address], [place] [id number] Oct, [facility] [address] [id number] [address] [place] [address], [place] [id number] Oct, [facility] [address] [id number] [address] [place] [address], [place] [id number] Oct, [facility] [address] [id number] [address] [place] [address], [place] [id number] Sep, [facility] [address] [id number] [address] [place] [phone] Sep, [facility] [address] [id number] [address] [place] [address], [place] [id number] Sep, [facility] [address] [id number] [address] [place] [address], [place] [id number] Sep, [facility] [address] [id number] [address] [place] [address], [place] [address] Aug, [facility] [address] [id number] [address] [place] [id number] Aug, [facility] [address] [id number] [address] [place] [address], [place] [id number] Aug, [facility] [address] [id number] [address] [place] [address], [place] [address] Aug, [facility] [address] [id number] [address] [place] [address], [place] [address] Aug, [facility] [address] [id number] [address] [place] [address], [place] [id number] Aug, [facility] [address] [id number] [address] [place] [address], [place] [id number] Jul, [facility] [address] [id number] [address] [place] [address], [place] [address] Jul, [facility] [address] [id number] [address] [place] [address], [place] [id number] Jun, [facility] [address] [id number] [address] [place] [address], [place] [address] Jun, [facility] [address] [id number] [address] [place] [address], [place] [address] Jun, [facility] [address] [id number] [address] [place] [address], [place] [address] Jun, [facility] [address] [id number] [address] [place] [address], [place] [id number] May, [facility] [address] [id number] [address] [place] [phone] May, [facility] [address] [id number] [address] [place] [address], [place] [address] May, [facility] [address] [id number] [address] [place] [address], [place] [address] May, [facility] [address] [id number] [address] [place] [address], [place] [address] Apr, [facility] [address] [id number] [facility] [place] [place] [address] Apr, [facility] [address] [id number] [facility] [place] [address] Apr, [facility] [address] [id number] [facility] [place] [address] Apr, [facility] [address] [id number] [facility] [place] [place] [address] Apr, [facility] [address] [id number] [address] [place] [address], [place] [address] Apr, [facility] [address] [id number] [address] [place] [address], [place] [address] Mar, [facility] [address] [id number] [address] [place] [address], [place] [address] Mar, [facility] [address] [id number] [address] [place] [address], [place] [address] Mar, [facility] [address] [id number] [address] [place] [address], [place] [address] Mar, [facility] [address] [id number] [address] [place] [address], [place] [address] Feb, [facility] [address] [id number] [address] [place] [address], [place] [address] Feb, [facility] [address] [id number] [address] [place] [address], [place] [address] Feb, [facility] [address] [id number] [address] [place] [address], [place] [address] January, [facility] [address] [id number] [address] [place] [address], [place] [address] January, [facility] [address] [id number] [address] [place] [address], [place] [address] January, [facility] [address] [id number] [address] [place] [address], [place] [address] January, [facility] [address] [id number] [facility] [place] [place] [address] January, [facility] [address] [id number] [address] [place] [address], [place] [address] January, [facility] [address] [id number] [address] [place] [address], [place] [address] January, [facility] [address] [id number] [address] [place] [address], [place] [address] January, [facility] [address] [id number] [address] [place] [address], [place] [address] Dec, [facility] [address] [id number] [address] [place] [address], [place] [address] Dec, [facility] [address] [id number] [address] [place] [address], [place] [address] Dec, [facility] [address] [id number] [address] [place] [address], [place] [address] Dec, [facility] [address] [id number] [address] [place] [address], [place] [address] Dec, [facility] [address] [id number] [address] [place] [address], [place] [address] Dec, [facility] [address] [id number] [address] [place] [address], [place] [address] Dec, [facility] [address] [id number] [address] [place] [address], [place] [address] Nov, [facility] [address] [id number] [address] [place] [address], [place] [address] Nov, [facility] [address] [id number] [address] [place] [address], [place] [address] Nov, [facility] [address] [id number] [address] [place] [address], [place] [address] Nov, [facility] [address] [id number] [address] [place] [address], [place] [address] 18 Nov, 2013 [facility] [address] [id number] [address] [place] [address], [place] [address] 18 Nov, 2013 [facility] [address] [id number] [address] [place] [address], [place] [address] 11 Nov, 2013 [facility] [address] [id number] [address] [place] [address], [place] [address] 11 Nov, 2013 [facility] [address] [id number] [address] [place] [address], [place] [address] 07 Nov, 2013 [facility] [address] [id number] [address] [place] [address], [place] [address] 07 Nov, 2013 [facility] [address] [id number] [address] [place] [address], [place] [address] 07 Nov, 2013 [facility] [address] [id number] [address] [place] [address], [place] [address] 07 Nov, 2013 [facility] [address] [id number] [address] [place] [address], [place] [address] 07 Oct, 2013 [facility] [address] [id number] [address] [place] [address], [place] [address] 07 Oct, 2013 [facility] [address] [id number] [address] [place] [address], [place] [address] 20 Sep, 2013 [facility] [address] [id number] [address] [place] [address], [place] [address] Sep, [facility] [address] [id number] [address] [place] [address], [place] [address] Sep, [facility] [address] [id number] [address] [place] [address], [place] [id number] Sep, [facility] [address] [id number] [address] [place] [address], [place] [id number] Aug, [facility] [address] [id number] [address] [place] [address], [place] [id number] Aug, [facility] [address] [id number] [address] [place] [address], [place] [id number] 15 Jul, 2013 [facility] [address] [id number] [address] [place] [address], [place] [id number] 15 Jul, 2013 [facility] [address] [id number] [address] [place] [address], [place] [id number] 15 Jul, 2013 [facility] [address] [id number] [address] [place] [address], [place] [address] Jul, [facility] [address] [id number] [address] [place] [address], [place] [address] Jun, [facility] [address] [id number] [address] [place] [address], [place] [address] 28 Jun, 2013 [facility] [address] [id number] [address] [place] [address], [place] [id number] 18 Jun, 2013 [facility] [address] [id number] [address] [place] [address], [place] [id number] 18 Jun, 2013 [facility] [address] [id number] [address] [place] [address], [place] [id number] 14 Jun, 2013 [facility] [address] [id number] [address] [place] [address], [place] [id number] 14 Jun, 2013 [facility] [address] [id number] [address] [place] [address], [place] [id number] 20 May, 2013 [facility] [address] [id number] [address] [place] [address], [place] [id number] 18 May, 2013 [facility] [address] [id number] [address] [place] [address], [place] [id number] 16 May, 2013 [facility] [address] [id number] [address] [place] [address], [place] [id number] Apr, [facility] [address] [id number] [address] [place] [address], [place] [address] Apr, [facility] [address] [id number] [address] [place] [address], [place] [id number] Apr, [facility] [address] [id number] [address] [place] [address], [place] [address] Mar, [facility] [address] [id number] [address] [place] [address], [place] [id number] Mar, [facility] [address] [id number] [address] [place] [address], [place] [id number] Feb, [facility] [address] [id number] [address] [place] [address], [place] [address] Feb, [facility] [address] [id number] [address] [place] [address], [place] [id number] Feb, [facility] [address] [id number] [address] [place] [address], [place] [id number] January, [facility] [address] [id number] [address] [place] [address], [place] [id number] January, [facility] [address] [id number] [address] [place] [address], [place] [id number] January, [facility] [address] [id number] [address] [place] [address], [place] [address] Dec, [facility] [address] [id number] [address] [place] [address], [place] [address] Dec, [facility] [address] [id number] [address] [place] [address], [place] [id number] Dec, [facility] [address] [id number] [address] [place] [address], [place] [address] Nov, [facility] [address] [id number] [address] [place] [address], [place] [id number] 14 Nov, 2012 [facility] [address] [id number] [address] [place] [address], [place] [address] Nov, [facility] [address] [id number] [address] [place] [address], [place] [id number] 18 Oct, 2012 [facility] [address] [id number] [address] [place] [address], [place] [id number] 14 Oct, 2012 [facility] [address] [id number] [address] [place] [address], [place] [id number] Sep, [facility] [address] [id number] [address] [place] [address], [place] [address] Sep, [facility] [address] [id number] [address] [place] [address], [place] [id number] Sep, [facility] [address] [id number] [address] [place] [address], [place] [address] Aug, [facility] [address] [id number] [address] [place] [address], [place] [address] Aug, [facility] [address] [id number] [address] [place] [address], [place] [address] Aug, [facility] [address] [id number] [address] [place] [address], [place] [address] Aug, [facility] [address] [id number] [address] [place] [address], [place] [id number] Aug, [facility] [address] [id number] [address] [place] [address], [place] [address] Jul, [facility] [address] [id number] [address] [place] [address], [place] [address] Jul, [facility] [facility] [address] [id number] [address] [place] [address], [place] [id number] Jul, [facility] [address] [id number] [address] [place] [address], [place] [id number] Jul, [facility] [address] [id number] [address] [place] [address], [place] [id number] Jul, [facility] [address] [id number] [address] [place] [address], [place] [id number] Jul, [facility] [address] [id number] [address] [place] [address], [place] [id number] 31 Jun, 2012 [facility] [address] [id number] [address] [place] [address], [place] [id number] 31 Jun, 2012 [facility] [address] [id number] [address] [place] [address], [place] [id number] 29 Jun, 2012 [facility] [address] [id number] [address] [place] [address], [place] [id number] 04 Jun, 2012 [facility] [address] [id number] [address] [place] [address], [place] [id number] 13 May, 2012 [facility] [address] [id number] [address] [place] [address], [place] [id number] 06 May, 2012 [facility] [address] [id number] [address] [place] [address], [place] [id number] 16 Apr, 2012 [facility] [address] [id number] [address] [place] [address], [place] [id number] 15 Apr, 2012 [facility] [address] [id number] [address] [place] [address], [place] [id number] 14 Apr, 2012 [facility] [address] [id number] [address] [place] [address], [place] [id number] 17 Mar, 2012 [facility] [address] [id number] [address] [place] [address], [place] [id number] Mar, [facility] [address] [id number] [address] [place] [address], [place] [id number] Feb, [facility] [address] [id number] [address] [place] [address], [place] [id number] 24 Jan, 2012 [facility] [address] [id number] [address] [place] [address], [place] [id number] January, [facility] [address] [id number] [address] [place] [address], [place] [id number] Dec, [facility] [address] [id number] [address] [place] [address], [place] [address] Dec, [facility] [address] [id number] [address] [place] [address], [place] [id number] 05 Dec, 2011 [facility] [address] [id number] [address] [place] [address], [place] [id number] 04 Dec, 2011 [facility] [address] [id number] [address] [place] [address], [place] [id number] 30 Nov, 2011 [facility] [address] [id number] [address] [place] [address], [place] [id number] 23 Nov, 2011 [facility] [address] [id number] [address] [place] [address], [place] [id number] 15 Nov, 2011 [facility] [address] [id number] [address] [place] [address], [place] [id number] 02 Nov, 2011 [facility] [address] [id number] [address] [place] [address], [place] [id number] 14 Oct, 2011 [facility] [address] [id number] [address] [place] [address], [place] [id number] 09 Oct, 2011 [facility] [address] [id number] [address] [place] [address], [place] [id number] Sep, [facility] [address] [id number] [address] [place] [address], [place] [id number] 30 Aug, 2011 [facility] [address] [id number] [address] [place] [address], [place] [id number] Aug, [facility] [address] [id number] [address] [place] [address], [place] [id number] Aug, [facility] [address] [id number] [address] [place] [address], [place] [id number] 29 Jul, 2011 [facility] [address] [id number] [address] [place] [address], [place] [id number] Jul, [facility] [address] [id number] [address] [place] [address], [place] [id number] Jul, [facility] [address] [id number] [address] [place] [address], [place] [id number] 20 Jun, 2011 [facility] [address] [id number] [address] [place] [id number] 14 Jun, 2011 [facility] [address] [id number] [address] [place] [phone] 13 Jun, 2011 [facility] [address] [id number] [address] [place] [id number] 13 Jun, 2011 [facility] [address] [id number] [address] [place] [id number] 19 May, 2011 [facility] [address] [id number] [address] [place] [id number] 17 Jan, 2011 [facility] [address] [id number] [address] [place] [phone] 28 Aug, 2010 [facility] [address] [id number] [address] [place] [phone] Aug, [facility] [address] [id number] [address] [place] [phone] Aug, [facility] [address] [id number] [address] [place] [phone] Aug, [facility] [address] [id number] [address] [place] [phone] Jul, [facility] [address] [id number] [address] [place] [id number] Jul, [facility] [address] [id number] [address] [place] [id number] 15 Jun, 2010 [facility] [address] [id number] [address] [place] [id number] 15 Jun, 2010 [facility] [address] [id number] [address] [place] [phone] 16 May, 2010 [facility] [address] [id number] [address] [place] [phone] 12 Jan, 2009 IMMUNIZATIONS No Known Immunizations SOCIAL HISTORY Never Assessed REASON FOR VISIT PLAN OF CARE VITAL SIGNS Height 62 in 2013-08-29 Weight 150.7 lbs 2013-08-29 Temperature 97.8 degrees Fahrenheit 2013-08-29 Heart Rate 64 bpm 2013-08-29 Respiratory Rate 18 2013-08-29 Blood pressure systolic 144 mmHg 2013-08-29 Blood pressure diastolic 80 mmHg 2013-08-29 MEDICATIONS Unknown Medications RESULTS No Results PROCEDURES [...]
--- OUTSIDE RECORDS SUMMARY | 2020-04-05 05:29 | XMS REPORT | Continuity of Care Document ---
Demographics Preferred Language Unknown Marital Status Unknown Zoroastrianism Affiliation Unknown Race Unknown Ethnic Group Unknown Author Organization Unknown Address Unknown Phone Unavailable Allergies Active Description Code Type Severity Reaction Onset Reported/Identified Relationship to Patient Clinical Status Yes Penicillins Drug Allergy 01/26/2009 Yes Penicillins Drug Allergy N/A N/A 01/26/2009 Yes gabapentin [id number] Drug Allerg y Unknown N/A 06/25/2019 Yes hydrochlorothiazide [id number] Drug Allergy Unknown N/A 06/25/2019 Yes lisinopril [id number] Drug Allerg y Unknown N/A 06/25/2019 Yes losartan [id number] Drug Allergy Unknown N/A 06/25/2019 Yes Penicillins [id number] Drug Aller gy Unknown N/A 06/25/2019 Yes pregabalin [id number] Drug Allerg y Unknown N/A 06/25/2019 Yes Sulfa (Sulfonamide Antibiotics) [id number] Drug Allergy Unknown N/A 019 Yes sulfamethoxazole [id number] Drug Allergy Unknown N/A 06/25/2019 Yes trimethoprim [id number] Drug Allergy Unknown N/A 06/25/2019 Medications There [...] 12/10/2019 LILI DYE MD Ot 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] .9 ANXIETY DISORDER, UNSPECIFIED 02/13/2020 PRITI ALVAREZ API ARCHITECT Ot I10 ESSENTIAL (PRIMARY) HYPERTENSION 02/13/2020 PRITI ALVAREZ API ARCHITECT Ot K21 .9 GASTRO-ESOPHAGEAL REFLUX DISEASE WITHOUT 02/13/2020 PRITI ALVAREZ API ARCHITECT Ot K56.41 FECAL IMPACTION 02/13/2020 PRITI ALVAREZ API ARCHITECT Ot K59.00 CONSTIPATION, UNSPECIFIED 02/13/2020 PRITI ALVAREZ API ARCHITECT Ot Z82.49 FAMILY HX OF ISCHEM HEART DIS AND OTH DI 02/13/2020 PRITI ALVAREZ APRN Ot Z88 .0 ALLERGY STATUS TO PENICILLIN 02/13/2020 PRITI ALVAREZ API ARCHITECT Ot Z88 .1 ALLERGY STATUS TO OTHER ANTIBIOTIC AGENT 02/13/2020 PRITI ALVAREZ API ARCHITECT Ot Z88 .2 ALLERGY STATUS TO SULFONAMIDES STATUS 02/13/2020 PRITI ALVAREZ API ARCHITECT Ot Z88 .8 ALLERGY STATUS TO OTH [...] GASTRO-ESOPHAGEAL REFLUX DISEASE WITHOUT 02/16/2020 PRITI ALVAREZ API ARCHITECT Ot K56.41 FECAL IMPACTION 02/16/2020 PRITI ALVAREZ [...] OF OTHER MALIGNANT NEOP 02/27/2020 LILI DYE MD, Ot 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 HISTORY OF NICOTINE DEPENDENCE 03/05/2020 LILI DYE MD Ot 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 03/05/2020 LIIL DYE MD Ot L97.422 NON-PRS CHR ULCER [...] DYE MD Ot 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 03/29/2020 RAMOS WILBURN MD Ot F41.9 ANXIETY DISORDER, UNSPECIFIED 03/29/2020 RAMOS WILBURN MD, Ot I10 ESSENTIAL (PRIMARY) HYPERTENSION 03/29/2020 RAMOS WILBURN MD, Ot K21.9 GASTRO-ESOPHAGEAL REFLUX DISEASE WITHOUT 03/29/2020 RAMOS WILBURN MD, Ot R41.0 DISORIENTATION, UNSPECIFIED 03/29/2020 RAMOS WILBURN MD, Ot S06.309A UNSP FOCAL TBI W LOC OF UNSP DURATION, I 03/29/2020 RAMOS WILBURN MD, Ot W19.XXXA UNSPECIFIED FALL, INITIAL ENCOUNTER 03/29/2020 RAMOS WILBURN MD, Ot Z77.22 CNTCT W AND EXPSR TO ENVIRON TOBACCO SMO 03/29/2020 RAMOS WILBURN MD, Ot Z82.49 FAMILY HX OF ISCHEM HEART DIS AND OTH DI 03/29/2020 RAMOS WILBURN MD, Ot Z87.81 PERSONAL HISTORY OF (HEALED) TRAUMATIC F 03/29/2020 RAMOS WILBURN MD, Ot Z88.0 ALLERGY STATUS TO PENICILLIN 03/29/2020 RAMOS WILBURN MD, Ot Z88.1 ALLERGY STATUS TO OTHER ANTIBIOTIC AGENT 03/29/2020 RAMOS WILBURN MD, Ot Z88.2 ALLERGY STATUS TO SULFONAMIDES STATUS 03/29/2020 RAMOS WILBURN MD, Ot Z88.8 ALLERGY STATUS TO OTH DRUG/MEDS/BIOL SUB 03/29/2020 RAMOS WILBURN MD, Ot Z91.81 HISTORY OF FALLING Procedures Code Description Performed [place] On Q2038 FLUZ ONE (MEDICARE OFFICE VISIT ONLY) 08/15/2012 G0008 FLU ADMINISTRATION (MEDICARE ONLY) 08/15/2012 33899 ROUT INE VENIPUNCTURE 11/28/2012 23909 CMP 11/28/2012 [id number] GF R CALC (RESULT ONLY) 11/28/2012 08890 TSH 11/28/2012 G0008 FLU ADMINISTRATION (MEDICARE ONLY) 08/01/2013 General S Ko Quevedo 08/29/2013 35075 ROUT INE VENIPUNCTURE 12/02/2013 07422 CMP 12/02/2013 30228 LIPI D PANEL 12/02/2013 [id number] GF R CALC (RESULT ONLY) 12/02/2013 86383 TSH 12/02/2013 91355 ROUT INE VENIPUNCTURE 08/17/2014 86624 TSH 08/17/2014 12806 ROUT INE VENIPUNCTURE 12/28/2014 [id number] GF R CALC (RESULT ONLY) 12/28/2014 23037 CMP 12/28/2014 51093 LIPI D PANEL 12/28/2014 [id number] YI PPLEMENT R INGUINAL REGION W SYNTH SUB 06/25/2019 [id number] YI PPLEMENT R FEMORAL REGION W SYNTH [...] 7-25 CREATININE 0.81 mg/dL 0.60-0.88 eGFR NON-AFR. TRISTANIAN 69 mL/min/1.73m2 > OR = 60 eGFR [...] 7-25 CREATININE 0.70 mg/dL 0.60-0.88 eGFR NON-AFR. TRISTANIAN 81 mL/min/1.73m2 > OR = 60 eGFR [...] 7-25 CREATININE 0.55 mg/dL 0.60-0.88 eGFR NON-AFR. TRISTANIAN 88 mL/min/1.73m2 > OR = 60 eGFR [...] Status Pt. 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 [id number] 03/04/2020 13:45:00 23:59:59 CLS Outpatient LILI DYE MD [facility] WOUNDCARE [id number] 02/13/2020 15:21:00 19:39:00 DIS Emergency PRITI ALVAREZ APRN [facility] ER CONSTIPATION [id number] 02/12/2020 13:49:00 23:59:59 CLS Outpatient LILI DYE MD [facility] WOUNDCARE [id number] 01/29/2020 13:55:00 23:59:59 CLS Outpatient LILI DYE MD [facility] WOUNDCARE [id number] 01/15/2020 13:46:00 23:59:59 CLS Outpatient LILI DYE MD [facility] WOUNDCARE [id number] 01/01/2020 13:44:00 23:59:59 CLS Outpatient LILI DYE MD [facility] WOUND[facility] [id number] 12/18/2019 14:05:00 23:59:59 CLS Outpatient LILI DYE MD [facility] WOUND[facility] [id number] 12/11/2019 14:37:00 23:59:59 CLS Outpatient LILI DYE MD [facility] [id number] 12/11/2019 13:39:00 23:59:59 CLS Outpatient LILI DYE MD [facility] WOUNDCARE [id number] 12/04/2019 15:54:00 23:59:59 CLS Outpatient LILI DYE MD [facility] LAB PRESSURE ULCER OF RIGHT HEEL [id number] 12/04/2019 13:57:00 23:59:59 CLS Outpatient LILI DYE MD [facility] WOUNDCARE [id number] 06/25/2019 20:28:00 019 15:45:00 DIS Inpatient VIKASH PARKER, LUMA Kat [facility] 4TH INCARCERATED FEMORAL HE RNIA, PSBO [id number] 11/07/2013 06:30:00 014 10:05:00 DIS Outpatient [id number] 11/06/2013 13:13:00 014 23:59:59 CLS Outpatient [id number] 03/05/2020 15:40:00 03/05/2020 23:59:5 9 CLS Outpatient AMARIS GOMEZ, [facility] [id number] 12/02/2019 16:00:00 Document Registration [id number] 04/23/2019 15:00:00 Document Registration [id number] 04/15/2019 16:00:00 Document Registration [id number] 02/13/2019 15:20:00 Document Registration [id number] 02/26/2018 16:20:00 Document Registration [id number] 12/28/2014 11:06:00 12/28/2014 23:59: 59 CLS Outpatient DON GLEZ MD [id number] 11/23/2014 13:57:00 11/23/2014 23:59: 59 CLS Outpatient DON GLEZ MD [id number] 08/17/2014 14:20:00 08/17/2014 23:59: 59 CLS Outpatient DON GLEZ MD [id number] 05/26/2014 14:45:00 05/26/2014 23:59: 59 CLS Outpatient DON GLEZ MD [id number] 05/12/2014 15:43:00 05/12/2014 23:59: 59 CLS Outpatient DON GLEZ MD [id number] 02/13/2014 13:54:00 02/13/2014 23:59: 59 CLS Outpatient DON GLEZ MD [id number] 12/02/2013 08:20:00 12/02/2013 23:59: 59 CLS Outpatient DON GLEZ MD [id number] 11/25/2013 15:46:00 11/25/2013 23:59: 59 CLS Outpatient DON GLEZ MD [id number] 08/29/2013 14:18:00 08/29/2013 23:59: 59 CLS Outpatient DON GLEZ MD [id number] 08/01/2013 13:56:00 08/01/2013 23:59: 59 CLS Outpatient DEVORAH EMELY PARKER [id number] 06/06/2013 12:58:00 06/06/2013 23:59: 59 CLS Outpatient DON GLEZ MD [id number] 03/10/2013 13:59:00 03/10/2013 23:59: 59 CLS Outpatient DON GLEZ MD [id number] 11/28/2012 14:55:00 11/28/2012 23:59: 59 CLS Outpatient DON GLEZ MD [id number] 08/15/2012 12:55:00 08/15/2012 23:59: 59 CLS Outpatient DON GLEZ MD [id number] 14:39:00 2012 23:59:5 9 GABINO Outpatient DON GLEZ MD
--- NOTE | 2020-04-05 06:04 | ED Fall/Injury ---
General Chief Complaint: Trauma-Non Activation Stated Complaint: FALL Nursing Triage Note: Patient fell out of bed this morning an struck her head. The patient has a 2cm laceration to her left occipital region. EMS advised that the nursing staff wished to have her evaluated and that the patients mentation is her baseline. Source: EMS, long term records, old records, caregiver Exam Limitations: physical impairment, other (dementia) History of Present Illness Date Seen by Provider: Apr 05, 2020 Time Seen by Provider: 05:09 Initial Comments This 84-year-old woman presents to the emergency room via EMS after having a fall at the long term. She is a resident of [facility] in [place]. The fall was unwitnessed. Staff believes she was trying to get up out of bed when she fell. She appears to have struck the back of her head on an oxygen concentrator. She has a small laceration on the posterior left scalp. She denies any pain and just complains of being cold. Patient is very functionally debilitated and is on hospice. She had a brain bleed identified during his ER visit on March 25. She was flown to [facility] in [place]. 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 Patient has severe cognitive ability and physical debility. Allergies and Home Medications Allergies Coded Allergies: Penicillins (Unverified Allergy, Unknown, 06/25/19) Sulfa (Sulfonamide Antibiotics) (Verified Allergy, Unknown, 06/25/19) gabapentin (Verified Allergy, Unknown, 06/25/19) hydrochlorothiazide (Verified Allergy, Unknown, 06/25/19) lisinopril (Verified Allergy, Unknown, 06/25/19) losartan (Verified Allergy, Unknown, 06/25/19) pregabalin (Verified Allergy, Unknown, 06/25/19) sulfamethoxazole (Verified Allergy, Unknown, 06/25/19) trimethoprim (Verified Allergy, Unknown, 06/25/19) Home Medications Betamethasone/Propylene Glyc 15 Gm Cream..g., TP BID, (Reported) APPLY TO AFFECTED AREAS ON HANDS ARMS AND FEET Bimatoprost 2.5 Ml Drops, 1 DROP OU HS, (Reported) Bisacodyl 5 Mg Tablet.dr, 5 MG PO HS, (Reported) Brimonidine Tartrate/Timolol 5 Ml Drops, 1 DROP OU BID, (Reported) Clorazepate Dipotassium 7.5 Mg Tablet, 7.5 MG PO DAILY PRN for ANXIETY, (Reported) Diclofenac Sodium 100 Gm Gel..gram., TP QID PRN for JOINT PAIN, (Reported) Docusate Sodium 250 Mg Capsule, 250 MG PO DAILY, (Reported) Ergocalciferol (Vitamin D2) 50,000 Unit Capsule, 50,000 UNIT PO Fr, (Reported) Felodipine 10 Mg Tab.er.24h, 10 MG PO DAILY, (Reported) Fentanyl 1 Each Patch.td72, 75 MCG PO Q72H@1800, (Reported) Hydrochlorothiazide 25 Mg Tablet, 25 MG PO DAILY, (Reported) Hydrocodone Bit/Acetaminophen 1 Each Tablet, 1 TAB PO Q4H PRN for NAUSEA/VOMITING-1ST LINE, (Reported) Levothyroxine Sodium 100 Mcg Tablet, 100 MCG PO DAILY, (Reported) Loratadine 10 Mg Tablet, 10 MG PO DAILY PRN for ALLERGIES, (Reported) Na Phos,M-B/Na Phos,Di-Ba 133 Ml Enema, 133 ML RC BID PRN for CONSTIPATION-1ST LINE Prescribed by: QUIRINO GARNER on 04/05/20 0615 Ondansetron 4 Mg Tab.rapdis, 4 MG PO Q6H PRN for NAUSEA/VOMITING-1ST LINE, (Reported) Polyethylene Glycol 3350 17 Gm Powd.pack, 17 GM PO DAILY PRN for CONSTIPATION- 2ND LINE, (Reported) Potassium Chloride 10 Meq Tab.er.prt, 10 MEQ PO BID, (Reported) Pravastatin Sodium 40 Mg Tablet, 40 MG PO HS, (Reported) Propylene Glycol/Peg 400 10 Ml Drops.gel, 1 DROP OU DAILY PRN for DRY EYES, (Reported) Ranitidine HCl 150 Mg Tablet, 150 MG PO BID, (Reported) Sennosides 8.6 Mg Tablet, 2 TAB PO DAILY, (Reported) Sennosides/Docusate Sodium 1 Each Tablet, 2 TAB PO HS, (Reported) Patient Home Medication List Home Medication List Reviewed: Yes Review of Systems Review of Systems Constitutional: see HPI Eyes: No Symptoms Reported Ears, Nose, Mouth, Throat: no symptoms reported Respiratory: no symptoms reported Cardiovascular: no symptoms reported Gastrointestinal: no symptoms reported Genitourinary: no symptoms reported : No Musculoskeletal: no symptoms reported Skin: see HPI Psychiatric/Neurological: See HPI Past Fdbbsvs-Nehcxz-Bnybye Hx Past Med/Social Hx: Reviewed and Corrections made Patient Social History Alcohol Use: Denies Use Recreational Drug Use: No Type Used: Cigarettes 2nd Hand Smoke Exposure: Yes Recent Hopitalizations: Yes (ENCEPHALITIS 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 oz. 69.137779oz; 16.00 BMI Method: General Appearance: WD/WN, mild distress, cachetic HEENT: normal ENT inspection, other (strabismus. 1.5 cm laceration on the left posterior scalp) Neck: non-tender, supple, normal inspection Cardiovascular: regular rate, rhythm, no edema, no murmur Respiratory: lungs clear, normal breath sounds, no respiratory distress, no accessory muscle use Gastrointestinal: normal bowel sounds, non tender, soft Extremities: other (bruising of the left fifth toe. No focal tenderness identified. Has pain with any range of motion of the lower extremities but cannot localize any focal pain) Neurologic/Psychiatric: intelligence agent II-XII nml as tested, alert, other (moves all 4 extremities, follows some commands) Skin: normal color, warm/dry Chuck Coma Score Best Eye Response: (4) Open Spontaneously Best Verbal Response: (4) Confused Conversation Best Motor Response: (6) Obeys Commands [place] Total: 14 Procedures/Interventions Wound Location: Scalp Wound Length (cm): 1.5 Wound's Depth, Shape: linear, sub Q Wound Explored: clean Betadine Prep?: Yes Staple Repair: Stapler Skin Precise Progress Wound was scrubbed with chlorhexidine and water. Skin was prepped with Betadine and 2 saranya were placed to approximate the laceration. Progress/Results/Core Measures Results/Orders My Orders Orders - QUIRINO RUIZ MD Ct Head/Cervical Spine Wo (04/05/20 05:20) Ct Pelvis Wo (04/05/20 05:20) Dipht,Pertuss(Acell),Tet Adult (Boostrix (04/05/20 06:30) Medications Given in ED Vital Signs/I&O 04/05/20 04/05/20 05:22 07:00 Temp 36.8 Pulse 87 77 Resp 18 16 B/P (MAP) 147/68 (94) 143/73 Pulse Ox 98 96 O2 Delivery Room Air Room Air Progress Progress Note #1: Time: 06:[address] of the pelvis, head, and cervical spine were obtained and reviewed by me. Reports pending. Discharge back to the long term is anticipated. Fecal impaction noted on CT of the pelvis. Progress Note #2: Time: 06:[address] scans were reviewed. There were no acute bony or intracranial aneurysm identified. Patient will be treated with a tetanus booster. Fecal impaction will be treated with enema and clear liquid diet. Diagnostic Imaging Diagonstic Imaging: CT Plain Films/CT/US/NM/MRI: c-spine, head Comments CT head and cervical spine viewed by me and stat rad report reviewed. Masses are again noted in the frontal lobes bilaterally. There is associated edema. No intracranial hemorrhage. His findings are consistent with neoplastic masses discovered earlier in the month. Diagonstic Imaging: CT Plain Films/CT/US/NM/MRI: pelvis Comments CT pelvis viewed by me and [facility] report reviewed. There is severe degenerative changes within the hips and lumbar spine. There is extensive impacted stool within the rectum and sigmoid colon with suggestion of stercoral colitis Departure Impression Primary Impression: Fall from bed Qualified Codes: W06.XXXA - Fall from bed, initial encounter Additional Impressions: Laceration of scalp Qualified Codes: S01.01XA - Laceration without foreign body of scalp, initial encounter Fecal impaction Disposition: 01 HOME, SELF-CARE Condition: Improved Departure-Patient Inst. Decision time for Depature: 06:12 Referrals: DON GLEZ MD (PCP/Family) Primary Care Physician Patient Instructions: Laceration Repair With [place] (DC), Fecal Impaction (DC) Add. Discharge Instructions: Monitor wound for signs of infection such as increasing redness, puslike drainage, or fever. Return to care promptly if you notice these symptoms. Have the saranya removed in about 7 days. Fecal impaction was noted on CT scan. Treat with enemas and follow-up by phone with primary care provider for further instructions. Clear liquid diet until stool has passed. All discharge instructions reviewed with patient and/or family. Voiced understanding. Scripts Na Phos,M-B/Na Phos,Di-Ba (Fleet Enema) 133 Ml Enema 133 ML RC BID PRN for CONSTIPATION-1ST LINE, #4 EA Prov: QUIRINO RUIZ MD 04/05/20 Copy Copies To 1: DON GLEZ MD, JOSHUA T MD Apr 05, 2020 06:04
[2020-04-05] MEDS ORDERED: NA P133E22 RC (06:15)
[2020-04-05] MEDS ORDERED: TETANUS,DIPTH,PERTUSS P/F (BOOSTRIX) 0.5 ML VIAL IM ONE (06:30)
--- NOTE | 2020-04-05 06:32 | Diagnostic Imaging Report ---
PROCEDURE: CT head and CT cervical spine without contrast. TECHNIQUE: Multiple contiguous axial images were obtained through the brain and cervical spine without the use of intravenous contrast. Sagittal and coronal reformations through the cervical spine were then performed. Auto Exposure Controls were utilized during the CT exam to meet ALARA standards for radiation dose reduction. INDICATION: Trauma, fall. COMPARISON: CT head from 03/25/2020. FINDINGS: CT HEAD: No change in the vasogenic edema in the bilateral frontal lobes with probable underlying mass lesions. Approximately 5 to 6 mm right to left midline shift is unchanged. No obstructive hydrocephalus. The 5 mm hyperdensity along the midline falx is unchanged. No erosive changes in the calvarium and no acute fracture. Paranasal sinuses and mastoid air cells are clear. CT cervical spine: No acute fracture or traumatic malalignment. Multilevel degenerative changes in cervical spine are greatest at C3-C4 and C4-C5 where there is degenerative retrolisthesis results in mild spinal canal narrowing. Lung apices are clear. No cervical lymphadenopathy. IMPRESSION: 1. No acute intracranial hemorrhage. 2. Unchanged vasogenic edema in the frontal lobes likely due to underlying masses versus less likely contusion. MRI of the brain without and with IV contrast is recommended for further characterization as patient condition permits. 3. No acute fracture or traumatic malalignment cervical spine. 4. Findings are in agreement with the preliminary report. Dictated by: Dictated on workstation # [id number]
[2020-04-05 07:00] VITALS: BP 143/73
--- NOTE | 2020-04-05 08:41 | Diagnostic Imaging Report ---
PROCEDURE: CT pelvis without contrast. TECHNIQUE: Multiple contiguous axial images were obtained through the pelvis without the use of intravenous contrast. Sagittal and coronal reformations were performed. Auto Exposure Controls were utilized during the CT exam to meet ALARA standards for radiation dose reduction. INDICATION: Trauma, fall. COMPARISON: CT abdomen and pelvis from 02/13/2020. FINDINGS: Diffuse osseous demineralization is present. There is no acute fracture within the sacrum, bilateral iliac or coccyx. The ischium and pubic rami are intact. No fracture in the proximal femurs. Severe/end-stage degenerative arthritis of both hips. Multilevel advanced degenerative changes of the lumbar spine. A large amount of stool is present in the rectosigmoid colon which may represent impaction. No pelvic or inguinal lymphadenopathy. IMPRESSION: 1. No acute fracture in the pelvis or proximal femurs. 2. Severe/end-stage degenerative arthritis of both hips. 3. Potential fecal impaction. Dictated by: Dictated on workstation # [id number]
== END 2020-04-05 07:00 | disposition home or self-care (01) ==
LOC: EDUNIT# 05:09 → ER 05:10
DX: S01.01XA Laceration without foreign body of scalp, initial encounter (principal); K56.41 Fecal impaction; I10 Essential (primary) hypertension; K21.9 Gastro-esophageal reflux disease without esophagitis; F41.9 Anxiety disorder, unspecified; R40.2142 Coma scale, eyes open, spontaneous, at arrival to emergency department; R40.2242 Coma scale, best verbal response, confused conversation, at arrival to emergency department; R40.2362 Coma scale, best motor response, obeys commands, at arrival to emergency department; Z88.0 Allergy status to penicillin; Z88.2 Allergy status to sulfonamides; Z88.8 Allergy status to other drugs, medicaments and biological substances; Z23 Encounter for immunization; Z88.1 Allergy status to other antibiotic agents; Z85.828 Personal history of other malignant neoplasm of skin; Z85.841 Personal history of malignant neoplasm of brain; W06.XXXA Fall from bed, initial encounter; Y92.129 Unspecified place in nursing home as the place of occurrence of the external cause
CPT/HCPCS: 70450; 72125; 72192; 90715